=== PATIENT | male | born 1945 | race Caucasian/White ===

== ENCOUNTER 2023-02-23 11:23 | Inpatient (IN) | payer MEDICARE ==
[2023-02-23] MEDS ORDERED: ACETAMINOPHEN TAB 500 MG TAB PO STA (12:11)
--- NOTE | 2023-02-23 12:15 | ED ---
General Adult HPI - General Chief complaint: Altered Mental Status Stated complaint: AMS Time Seen by Provider: 02/23/23 11:57 Source: patient, EMS, RN notes reviewed Mode of arrival: EMS Limitations: altered mental status - History of Present Illness Initial comments: Patient is a pleasant 77-year-old male presenting to the emergency department with concerns for change in mental status. Patient was found on the ground this morning prior to arrival. Patient is altered. Patient reportedly last known well as last night. Patient is a very poor historian and offers very little history. Majority of history by EMS. - Related Data Allergies Allergy/AdvReac Type Severity Reaction Status Date / Time No Known Allergies Allergy Verified 02/23/23 12:32 Review of Systems ROS Statement: Those systems with pertinent positive or pertinent negative responses have been documented in the HPI. ROS Other: All systems not noted in ROS Statement are negative. Limitations: ROS unobtainable due to patients medical condition Constitutional: Reports: as per HPI Neurological: Reports: confusion Past Medical History Past Medical History: No Reported History Additional Past Medical History / Comment(s): Per EMS- patient has no significant medical history and does not take any medications. Past Surgical History: No Surgical Hx Reported General Exam Limitations: altered mental status General appearance: alert, in no apparent distress Head exam: Present: atraumatic Eye exam: Present: normal appearance, PERRL, EOMI ENT exam: Present: mucous membranes dry Neck exam: Present: normal inspection. Absent: tenderness, meningismus Respiratory exam: Present: normal lung sounds bilaterally Cardiovascular Exam: Present: regular rate, normal rhythm GI/Abdominal exam: Present: soft. Absent: tenderness Extremities exam: Present: normal inspection Neurological exam: Present: alert, CN II-XII intact, other (Exam limited by patient noncompliance. No focal deficits.). Absent: motor sensory deficit Expanded Neurological exam: Present: protecting the airway Patient oriented to: Present: person. Absent: place, time Cranial nerves: EOM's Intact: Normal Eye Response: (4) open spontaneously Motor Response: (5) localizes to pain Verbal Response: (4) confused conversation Psychiatric exam: Present: flat affect Skin exam: Present: normal color Course Vital Signs 02/23/23 02/23/23 02/23/23 11:27 11:57 13:20 Temperature 98.4 F 100.9 F H 103.2 F H Pulse Rate 93 88 Respiratory 18 Rate Blood Pressure 143/87 O2 Sat by Pulse 97 94 L Oximetry 02/23/23 02/23/23 02/23/23 14:00 15:00 15:05 Temperature 101.3 F H 98.9 F 100.6 F H Pulse Rate 96 87 Respiratory 18 20 Rate Blood Pressure 107/54 126/71 O2 Sat by Pulse 95 96 Oximetry - Reevaluation(s) Reevaluation #1: 02/23/23 15:07 Age and weight adjusted ideal body weight of 191 pounds, 87 kg for fluid bolus 2610 mL EKG Findings - EKG Results: EKG: interpreted by ERMD, sinus rhythm, normal axis, normal QRS, normal ST/T Procedures - Sepsis Sepsis Focused Exam #1 Time Sepsis Criteria Met: 15:00 Sepsis Focused Exam Date: 02/23/23 Sepsis Focused Exam Time: 15:12 Sepsis Focused Exam Complete: Yes Vital Signs & RN Notes Reviewed: Yes Capillary Refill: < 2 Seconds: Fingers, Toes Peripheral Pulses: Normal: Radial (R), Radial (L) Skin Color: Normal for Patient Respiratory Exam: normal lung sounds Cardiovascular Exam: regular rate, normal rhythm Medical Decision Making - Medical Decision Making Was pt. sent in by a medical professional or institution (, PA, ETHYLBENZENE CONVERTER OPERATOR, urgent care, hospital, or fpc...) When possible be specific @ -[No] Did you speak to anyone other than the patient for history (EMS, parent, family, police, friend...)? What history was obtained from this source @ -Family is present and helps provide history later including patient was well yesterday and no history of similar problems. Including patient significant improvement will symptoms since arrival Did you review nursing and triage notes (agree or disagree)? Why? @ -[I reviewed and agree with nursing and triage notes] Were old charts reviewed (outside hosp., previous admission, EMS record, old EKG, old radiological studies, urgent care reports/EKG's, fpc records)? Report findings @ -[No old charts were reviewed] Differential Diagnosis (chest pain, altered mental status, abdominal pain women, abdominal pain men, vaginal bleeding, weakness, fever, dyspnea, syncope, headache, dizziness, GI bleed, back pain, seizure, CVA, palpatations, mental health, musculoskeletal)? @ -Differential Altered Mental Status: Hypoglycemia, DKA, hypercapnia, ETOH, overdose, CO poisoning, trauma, myxedema coma, HTN encephalopathy, infection, encephalitis, psychosis, intercranial hemorrhage, hepatic encephalopathy, meningitis, CVA, this is not meant to be an all-inclusive list EKG interpreted by me (3pts min.). @ -[As above] X-rays interpreted by me (1pt min.). @ -Chest x-ray shows questionable right hilar infiltrate CT interpreted by me (1pt min.). @ -[None done] U/S interpreted by me (1pt. min.). @ -[None done] What testing was considered but not performed or refused? (CT, X-rays, U/S, labs)? Why? @ -[None] What meds were considered but not given or refused? Why? @ -[None] Did you discuss the management of the patient with other professionals (professionals i.e. , PA, ETHYLBENZENE CONVERTER OPERATOR, lab, RT, psych nurse, mental health social worker, brick catcher, teacher, youth officer, case manager specialist)? Give summary @ -Case was discussed with Dr. Holman, who will admit his patient Was smoking cessation discussed for >3mins.? @ -[No] Was critical care preformed (if so, how long)? @ -32 minutes. Were there social determinants of health that impacted care today? How? (Homelessness, low income, unemployed, alcoholism, drug addiction, transportation, low edu. Level, literacy, decrease access to med. care, [facility], rehab)? @ -[No] Was there de-escalation of care discussed even if they declined (Discuss DNR or withdrawal of care, Hospice)? DNR status @ -[No] What co-morbidities impacted this encounter? (DM, HTN, Smoking, COPD, CAD, Cancer, CVA, ARF, Chemo, Hep., AIDS, mental health diagnosis, sleep apnea, morbid obesity)? @ -[None] Was patient admitted / discharged? Hospital course, mention meds given and route, prescriptions, significant lab abnormalities, going to OR and other pertinent info. @ -Patient reevaluated and significantly improved. Patient is alert and oriented 3. Still no meningismus. Source of infection is possible pneumonia. Diagnosis of sepsis at 1500 hrs. Blood culture and lactic acid and IV antibiotics have all been ordered. Admission orders written. Undiagnosed new problem with uncertain prognosis? @ -[No] Drug Therapy requiring intensive monitoring for toxicity (Heparin, Nitro, Insulin, Cardizem)? @ -[No] Were any procedures done? @ -See above Diagnosis/symptom? @ -Pneumonia, septic shock Acute, or Chronic, or Acute on Chronic? @ -Acute, acute Uncomplicated (without systemic symptoms) or Complicated (systemic symptoms)? @ -[default] Side effects of treatment? @ -[No] Exacerbation, Progression, or Severe Exacerbation? @ -[No] Poses a threat to life or bodily function? How? (Chest pain, [place], CA, pneumonia, PE, COPD, DKA, ARF, appy, cholecystitis, CVA, Diverticulitis, Homicidal, Suicidal, threat to staff... and all critical care pts) @ -Patient meets septic shock criteria which does pose a threat to bodily function and life - Lab Data Result diagrams: 02/23/23 12:30 02/23/23 12:30 Lab Results 02/23/23 02/23/23 02/23/23 Range/Units 12:25 12:30 12:30 WBC 13.4 H (3.8-10.6) k/uL RBC 4.87 (4.30-5.90) m/uL Hgb 15.9 (13.0-17.5) gm/dL Hct 45.7 (39.0-53.0) % MCV 93.9 (80.0-100.0) fL MCH 32.8 (25.0-35.0) pg MCHC 34.9 (31.0-37.0) g/dL RDW 12.2 (11.5-15.5) % Plt Count 139 L (150-450) k/uL MPV 9.4 Neutrophils % 79 % Lymphocytes % 10 % Monocytes % 7 % Eosinophils % 0 % Basophils % 0 % Neutrophils # 10.5 H (1.3-7.7) k/uL Lymphocytes # 1.3 (1.0-4.8) k/uL Monocytes # 1.0 (0-1.0) k/uL Eosinophils # 0.0 (0-0.7) k/uL Basophils # 0.1 (0-0.2) k/uL PT 11.8 (9.0-12.0) sec INR 1.1 (<1.2) APTT 23.8 (22.0-30.0) sec Sodium (137-145) mmol/L Potassium (3.5-5.1) mmol/L Chloride (98-107) mmol/L Carbon Dioxide (22-30) mmol/L Anion Gap mmol/L BUN (9-20) mg/dL Creatinine (0.66-1.25) mg/dL Est GFR (CKD-EPI)AfAm (>60 ml/min/1.73 sqM) Est GFR (CKD-EPI)NonAf (>60 ml/min/1.73 sqM) Glucose (74-99) mg/dL POC Glucose (mg/dL) 121 H (70-110) mg/dL POC Glu [place] ID Vivi Chavez Lactic Ac Sepsis Rflx Plasma Lactic Acid Ehsan (0.7-2.0) mmol/L Calcium (8.4-10.2) mg/dL Total Bilirubin (0.2-1.3) mg/dL AST (17-59) U/L ALT (4-49) U/L Alkaline Phosphatase (38-126) U/L Creatine Kinase (55-170) U/L Troponin I (0.000-0.034) ng/mL Total Protein (6.3-8.2) g/dL Albumin (3.5-5.0) g/dL Urine Color Urine Appearance (Clear) Urine pH (5.0-8.0) Ur Specific [place] (1.001-1.035) Urine Protein (Negative) Urine Glucose (UA) (Negative) Urine Ketones (Negative) Urine Blood (Negative) Urine Nitrite (Negative) Urine Bilirubin (Negative) Urine Urobilinogen (<2.0) mg/dL Ur Leukocyte Esterase (Negative) Urine RBC (0-5) /hpf Urine WBC (0-5) /hpf Urine Mucus (None) /hpf Influenza Type A (PCR) (Not Detectd) Influenza Type B (PCR) (Not Detectd) RSV (PCR) (Not Detectd) SARS-CoV-2 (PCR) (Not Detectd) 02/23/23 02/23/23 02/23/23 Range/Units 12:30 12:30 12:30 WBC (3.8-10.6) k/uL RBC (4.30-5.90) m/uL Hgb (13.0-17.5) gm/dL Hct (39.0-53.0) % MCV (80.0-100.0) fL MCH (25.0-35.0) pg MCHC (31.0-37.0) g/dL RDW (11.5-15.5) % Plt Count (150-450) k/uL MPV Neutrophils % % Lymphocytes % % Monocytes % % Eosinophils % % Basophils % % Neutrophils # (1.3-7.7) k/uL Lymphocytes # (1.0-4.8) k/uL Monocytes # (0-1.0) k/uL Eosinophils # (0-0.7) k/uL Basophils # (0-0.2) k/uL PT (9.0-12.0) sec INR (<1.2) APTT (22.0-30.0) sec Sodium 138 (137-145) mmol/L Potassium 4.8 (3.5-5.1) mmol/L Chloride 105 (98-107) mmol/L Carbon Dioxide 22 (22-30) mmol/L Anion Gap 11 mmol/L BUN 29 H (9-20) mg/dL Creatinine 1.17 (0.66-1.25) mg/dL Est GFR (CKD-EPI)AfAm 68 (>60 ml/min/1.73 sqM) Est GFR (CKD-EPI)NonAf 59 (>60 ml/min/1.73 sqM) Glucose 118 H (74-99) mg/dL POC Glucose (mg/dL) (70-110) mg/dL POC Glu [place] ID Lactic Ac Sepsis Rflx Plasma Lactic Acid Ehsan 4.0 H* (0.7-2.0) mmol/L Calcium 8.8 (8.4-10.2) mg/dL Total Bilirubin 1.7 H (0.2-1.3) mg/dL AST 61 H (17-59) U/L ALT 38 (4-49) U/L Alkaline Phosphatase 59 (38-126) U/L Creatine Kinase 1588 H* (55-170) U/L Troponin I 0.068 H* (0.000-0.034) ng/mL Total Protein 7.6 (6.3-8.2) g/dL Albumin 4.4 (3.5-5.0) g/dL Urine Color Urine Appearance (Clear) Urine pH (5.0-8.0) Ur Specific [place] (1.001-1.035) Urine Protein (Negative) Urine Glucose (UA) (Negative) Urine Ketones (Negative) Urine Blood (Negative) Urine Nitrite (Negative) Urine Bilirubin (Negative) Urine Urobilinogen (<2.0) mg/dL Ur Leukocyte Esterase (Negative) Urine RBC (0-5) /hpf Urine WBC (0-5) /hpf Urine Mucus (None) /hpf Influenza Type A (PCR) (Not Detectd) Influenza Type B (PCR) (Not Detectd) RSV (PCR) (Not Detectd) SARS-CoV-2 (PCR) (Not Detectd) 02/23/23 02/23/23 02/23/23 Range/Units 12:30 12:35 13:11 WBC (3.8-10.6) k/uL RBC (4.30-5.90) m/uL Hgb (13.0-17.5) gm/dL Hct (39.0-53.0) % MCV (80.0-100.0) fL MCH (25.0-35.0) pg MCHC (31.0-37.0) g/dL RDW (11.5-15.5) % Plt Count (150-450) k/uL MPV Neutrophils % % Lymphocytes % % Monocytes % % Eosinophils % % Basophils % % Neutrophils # (1.3-7.7) k/uL Lymphocytes # (1.0-4.8) k/uL Monocytes # (0-1.0) k/uL Eosinophils # (0-0.7) k/uL Basophils # (0-0.2) k/uL PT (9.0-12.0) sec INR (<1.2) APTT (22.0-30.0) sec Sodium (137-145) mmol/L Potassium (3.5-5.1) mmol/L Chloride (98-107) mmol/L Carbon Dioxide (22-30) mmol/L Anion Gap mmol/L BUN (9-20) mg/dL Creatinine (0.66-1.25) mg/dL Est GFR (CKD-EPI)AfAm (>60 ml/min/1.73 sqM) Est GFR (CKD-EPI)NonAf (>60 ml/min/1.73 sqM) Glucose (74-99) mg/dL POC Glucose (mg/dL) (70-110) mg/dL POC Glu [place] ID Lactic Ac Sepsis Rflx Y Plasma Lactic Acid Ehsan (0.7-2.0) mmol/L Calcium (8.4-10.2) mg/dL Total Bilirubin (0.2-1.3) mg/dL AST (17-59) U/L ALT (4-49) U/L Alkaline Phosphatase (38-126) U/L Creatine Kinase (55-170) U/L Troponin I (0.000-0.034) ng/mL Total Protein (6.3-8.2) g/dL Albumin (3.5-5.0) g/dL Urine Color Yellow Urine Appearance Clear (Clear) Urine pH 5.5 (5.0-8.0) Ur Specific [place] 1.027 (1.001-1.035) Urine Protein 1+ H (Negative) Urine Glucose (UA) Negative (Negative) Urine Ketones 1+ H (Negative) Urine Blood Large H (Negative) Urine Nitrite Negative (Negative) Urine Bilirubin Negative (Negative) Urine Urobilinogen <2.0 (<2.0) mg/dL Ur Leukocyte Esterase Negative (Negative) Urine RBC 14 H (0-5) /hpf Urine WBC 1 (0-5) /hpf Urine Mucus Few H (None) /hpf Influenza Type A (PCR) Not Detected (Not Detectd) Influenza Type B (PCR) Not Detected (Not Detectd) RSV (PCR) Not Detected (Not Detectd) SARS-CoV-2 (PCR) Not Detected (Not Detectd) Critical Care Time Critical Care Time: Yes Total Critical Care Time: 32 Disposition Clinical Impression: Pneumonia, Septic shock Disposition: ADMITTED IP TO THIS HOSP Condition: Serious Is patient prescribed a controlled substance at d/c from ED?: No Referrals: None,Stated [REFERRING] - 1-2 days Time of Disposition: 15:07
[2023-02-23 12:32] LABS: Glucose,Whole Blood 121 mg/dL (70-110)
[2023-02-23 12:44] LABS: Basophils # (A) 0.1 k/uL (0-0.2); Basophils % (A) 0 %; Eosinophils % (A) 0 %; HCT 45.7 % (39.0-53.0); HGB 15.9 gm/dL (13.0-17.5); Lymphocytes # (A) 1.3 k/uL (1.0-4.8); Lymphocytes % (A) 10 %; MCH 32.8 pg (25.0-35.0); MCHC 34.9 g/dL (31.0-37.0); MCV 93.9 fL (80.0-100.0); Mean Platelet Volume 9.4; Monocytes % (A) 7 %; Neutrophils # (A) 10.5 k/uL (1.3-7.7); Neutrophils % (A) 79 %; Platelet Count 139 k/uL (150-450); RBC 4.87 m/uL (4.30-5.90); RDW 12.2 % (11.5-15.5); WBC 13.4 k/uL (3.8-10.6)
[2023-02-23 12:52] LABS: INR 1.1 (<1.2); Partial Thromboplastin Time 23.8 sec (22.0-30.0); Prothrombin Time 11.8 sec (9.0-12.0)
[2023-02-23] MEDS ORDERED: ACETAMINOPHEN IV (For NPO) 1,000 MG in EMPTY BAG 1 BAG IVPB STA (12:59)
--- NOTE | 2023-02-23 13:02 | CT ---
EXAMINATION TYPE: CT brain wo con DATE OF EXAM: 02/23/2023 COMPARISON: none HISTORY: AMS CT DLP: 2159.[address] of the brain was performed. The ventricles, basal cisterns and sulci overlying the cerebral convexities demonstrate mild to moder ate enlargement. There is no evidence for intracranial hemorrhage or sulcal effacement. There is decreased attenuation about the periventricular white matter and deep white matter of both c erebral hemispheres, compatible with chronic small vessel ischemia. Differential diagnosis does inclu de demyelination. No mass effects are seen.No midline shift. Osseous calvarium is intact. If symptoms persist consider MRI. IMPRESSION: 1. Age related atrophic and chronic small vessel ischemic change without acute intracranial process s een at this time.
[2023-02-23 13:03] LABS: AST 61 U/L (17-59); African American GFR (CKD) 68 (>60 ml/min/1.73 sqM); Albumin 4.4 g/dL (3.5-5.0); Alkaline Phosphatase 59 U/L (38-126); Anion Gap 11 mmol/L; Blood Urea Nitrogen 29 mg/dL (9-20); Calcium 8.8 mg/dL (8.4-10.2); Carbon Dioxide 22 mmol/L (22-30); Chloride 105 mmol/L (98-107); Glucose 118 mg/dL (74-99); Non-African American GFR(CKD) 59 (>60 ml/min/1.73 sqM); Potassium 4.8 mmol/L (3.5-5.1); Sodium 138 mmol/L (137-145); Total Bilirubin 1.7 mg/dL (0.2-1.3); Total Protein 7.6 g/dL (6.3-8.2)
--- NOTE | 2023-02-23 13:03 | XR ---
EXAMINATION TYPE: XR chest 1V portable DATE OF EXAM: 02/23/2023 HISTORY: Shortness of breath. COMPARISON: None. TECHNIQUE: Single view of the chest is submitted. FINDINGS: Demonstrated are scattered senescent parenchymal change. The heart is stable. There is fullness about the right hilum which is likely related to patient rotation. Underlying infil trate or mass is not excluded however. Degenerative changes are seen of the dorsal spine. IMPRESSION: 1. There is fullness about the right hilum which is likely related to patient rotation. Underlying i nfiltrate or mass is not excluded however.
[2023-02-23 13:11] LABS: ALT 38 U/L (4-49); Creatine Kinase 1588 U/L (55-170)
[2023-02-23] MEDS: SODIUM CHLORIDE 0.9% 1,000 ML IV SCH ×2 (13:20→23:00)
[2023-02-23 14:06] LABS: Appearance,Urine Clear (Clear); Bilirubin,Urine Negative (Negative); Blood,Urine Large (Negative); Color,Urine Yellow; Glucose,Urine (UA) Negative (Negative); Ketones,Urine 1+ (Negative); Leukocyte Esterase,Urine Negative (Negative); Mucus,Urine Few /hpf; Nitrite,Urine Negative (Negative); PH, Urine 5.5 (5.0-8.0); Protein,Urine 1+ (Negative); RBC,Urine 14 /hpf (0-5); Specific Gravity,Urine 1.027 (1.001-1.035); Urobilinogen,Urine <2.0 mg/dL (<2.0); WBC,Urine 1 /hpf (0-5)
[2023-02-23] MEDS ORDERED: SODIUM CHLORIDE 0.9% IV STA (15:01)
[2023-02-23] MEDS ORDERED: SODIUM CHLORIDE 0.9% 1,000 ML IV STA ×2 (15:01)
[2023-02-23] MEDS ORDERED: PNEUMONIA PROTOCOL UTILIZED 1 EACH MISC PO PRN (15:19)
[2023-02-23] MEDS ORDERED: SODIUM CHLORIDE 0.9% 500 ML 500 ML IV ONE (18:40)
[2023-02-23] MEDS ORDERED: LORazepam 2 MG/ML INJ IV PRN (18:40)
[2023-02-23] MEDS ORDERED: IBUPROFEN 200 MG TAB PO PRN (18:42)
[2023-02-23] MEDS: ACETAMINOPHEN IV (For NPO) 1,000 MG in EMPTY BAG 1 BAG IVPB PRN (19:00)
--- NOTE | 2023-02-23 19:57 | P.HPIM ---
History of Present Illness H&P Date: 02/23/23 Chief Complaint: Significant fever. This history of physical 77-year-old white male with no significant past medical history who was found on the floor this morning. Usually sleeps in a separate room from his and the found him this morning. She could not necessar becka describe what she found that he was not described as having any type of seizure disorder. Evaluation in emergency room did show significant fever with questionable pneumonia. The patient is admitted for sepsis and septic shock. After evaluating the patient initially in the room he became sensitive and tachycardic. He has been bolused at this point and cultures are pending. Initial urinalysis does not show significant sinus infection. Blood cultures are also pending but white count is slightly elevated. The patient due to his initial decompensation we transferred to ICU for appropriate evaluation. Cardiology, intensive care and infectious diseases consulted. Due to his new onset mental status changes we will ask neurology to also do an evaluation although despite this is related to the sepsis. Review of Systems Constitutional: Reports as per HPI, Reports chills, Reports fever Eyes: denies blurred vision, denies pain Ears, nose, mouth and throat: Reports headache, Denies sore throat Cardiovascular: Reports chest pain, Denies shortness of breath Respiratory: Reports cough Gastrointestinal: Denies abdominal pain, Denies diarrhea, Denies nausea, Denies vomiting Musculoskeletal: Denies myalgias Integumentary: Denies pruritus, Denies rash Past Medical History Past Medical History: No Reported History Additional Past Medical History / Comment(s): Per EMS- patient has no significant medical history and does not take any medications. Past Surgical History: No Surgical Hx Reported Medications and Allergies Home Medications Medication Instructions Recorded Confirmed Type No Known Home Medications 02/23/23 02/23/23 History Allergies Allergy/AdvReac Type Severity Reaction Status Date / Time No Known Allergies Allergy Verified 02/23/23 12:32 Physical Exam Vitals: Vital Signs Temp Pulse Pulse Resp BP BP Pulse Ox 02/23/23 19:50 102.8 F H 162 H 22 94/56 02/23/23 19:38 102.8 F H 88 20 114/58 98 02/23/23 18:15 103.1 F H 99 22 179/81 96 02/23/23 16:44 99.7 F H 02/23/23 16:40 100.1 F H 87 20 139/71 97 02/23/23 15:05 100.6 F H 87 20 126/71 96 02/23/23 15:00 98.9 F 02/23/23 14:00 101.3 F H 96 18 107/54 95 02/23/23 13:20 103.2 F H 88 94 L 02/23/23 11:57 100.9 F H 02/23/23 11:27 98.4 F 93 18 143/87 97 Intake and Output 02/23/23 02/23/23 02/23/23 06:59 14:59 22:59 Output Total 475 Balance -475 Output: Urine 475 Uretheral (Mitchell) 475 Other: Weight 113.398 kg - Constitutional General appearance: no acute distress - EENT Eyes: EOMI - Respiratory Respiratory: bilateral: CTA - Cardiovascular Rhythm: regular Heart sounds: normal: S1, S2 Abnormal Heart Sounds: no S3 Gallop - Gastrointestinal General gastrointestinal: soft, no tenderness, no umbilical hernia - Integumentary Integumentary: cellulitis - Psychiatric Psychiatric: no A&O x's 3 Results CBC & Chem 7: 02/23/23 12:30 02/23/23 12:30 Labs: Abnormal Lab Results - Last 24 Hours (Table) 02/23/23 02/23/23 02/23/23 Range/Units 12:25 12:30 12:30 WBC 13.4 H (3.8-10.6) k/uL Plt Count 139 L (150-450) k/uL Neutrophils # 10.5 H (1.3-7.7) k/uL BUN 29 H (9-20) mg/dL Glucose 118 H (74-99) mg/dL POC Glucose (mg/dL) 121 H (70-110) mg/dL Plasma Lactic Acid Ehsan (0.7-2.0) mmol/L Total Bilirubin 1.7 H (0.2-1.3) mg/dL AST 61 H (17-59) U/L Creatine Kinase 1588 H* (55-170) U/L Troponin I (0.000-0.034) ng/mL Urine Protein (Negative) Urine Ketones (Negative) Urine Blood (Negative) Urine RBC (0-5) /hpf Urine Mucus (None) /hpf 02/23/23 02/23/23 02/23/23 Range/Units 12:30 12:30 12:30 WBC (3.8-10.6) k/uL Plt Count (150-450) k/uL Neutrophils # (1.3-7.7) k/uL BUN (9-20) mg/dL Glucose (74-99) mg/dL POC Glucose (mg/dL) (70-110) mg/dL Plasma Lactic Acid Ehsan 4.0 H* (0.7-2.0) mmol/L Total Bilirubin (0.2-1.3) mg/dL AST (17-59) U/L Creatine Kinase (55-170) U/L Troponin I 0.068 H* (0.000-0.034) ng/mL Urine Protein 1+ H (Negative) Urine Ketones 1+ H (Negative) Urine Blood Large H (Negative) Urine RBC 14 H (0-5) /hpf Urine Mucus Few H (None) /hpf Assessment and Plan (1) Altered mental status Current Visit: Yes Status: Acute Code(s): R41.82 - ALTERED MENTAL STATUS, UNSPECIFIED SNOMED Code(s): 393300859 (2) Pneumonia Current Visit: Yes Status: Acute Code(s): J18.9 - PNEUMONIA, UNSPECIFIED ORGANISM SNOMED Code(s): 229236400 (3) Septic shock Current Visit: Yes Status: Acute Code(s): A41.9 - SEPSIS, UNSPECIFIED ORGANISM; R65.21 - SEVERE SEPSIS WITH SEPTIC SHOCK SNOMED Code(s): 75204105 Plan: Due to sun decompensation, I will transfer to the ICU for appropriate treatment. Bolus fluid. Check CBC and CMP in a.m. I do suspect these cardiac and mental status changes are related to sepsis. Prognosis is guarded. See orders otherwise.
--- NOTE | 2023-02-23 20:47 | XR ---
EXAMINATION TYPE: XR chest 1V portable DATE OF EXAM: 02/23/2023 7:58 PM CLINICAL INDICATION:Male, 77 years old with history of shortness of breath; COMPARISON: Chest radiographs from 02/13/2023 TECHNIQUE: XR chest 1V portable Frontal view of the chest. FINDINGS: Lungs/Pleura: There is no evidence of pleural effusion, focal consolidation, or pneumothorax. Pulmonary vascularity: Unremarkable. Heart/mediastinum: Cardiomediastinal silhouette is unremarkable. Musculoskeletal: No acute osseous pathology. IMPRESSION: Low lung volumes with a generalized hazy appearance which could represent atelectasis versus pulmonar y edema correlate with serum BNP.
[2023-02-24] MEDS: ACETAMINOPHEN IV (For NPO) 1,000 MG in EMPTY BAG 1 BAG IVPB PRN ×4 (03:29→19:52)
[2023-02-24] MEDS: SODIUM CHLORIDE 0.9% 1,000 ML IV SCH ×3 (05:14→23:27)
[2023-02-24 06:02] LABS: HCT 39.1 % (39.0-53.0); HGB 13.5 gm/dL (13.0-17.5); MCH 33.6 pg (25.0-35.0); MCHC 34.6 g/dL (31.0-37.0); MCV 96.9 fL (80.0-100.0); Mean Platelet Volume 9.2; Platelet Count 109 k/uL (150-450); RBC 4.04 m/uL (4.30-5.90); RDW 11.9 % (11.5-15.5)
[2023-02-24 06:15] LABS: ALT 50 U/L (4-49); AST 245 U/L (17-59); African American GFR (CKD) 65 (>60 ml/min/1.73 sqM); Albumin 3.1 g/dL (3.5-5.0); Alkaline Phosphatase 43 U/L (38-126); Anion Gap 9 mmol/L; Blood Urea Nitrogen 36 mg/dL (9-20); Calcium 7.5 mg/dL (8.4-10.2); Carbon Dioxide 17 mmol/L (22-30); Chloride 110 mmol/L (98-107); Glucose 102 mg/dL (74-99); Non-African American GFR(CKD) 56 (>60 ml/min/1.73 sqM); Potassium 3.7 mmol/L (3.5-5.1); Sodium 136 mmol/L (137-145); Total Bilirubin 1.8 mg/dL (0.2-1.3); Total Protein 5.9 g/dL (6.3-8.2)
[2023-02-24 06:46] LABS: Glucose,Whole Blood 102 mg/dL (70-110)
[2023-02-24] MEDS ORDERED: VANCOMYCIN IV PER PHARMACY 1 EACH MISC MISCELLANE PRN (07:33)
[2023-02-24] MEDS ORDERED: VANCOMYCIN 1,750 MG in SODIUM CHLORIDE 0.9% 500 ML 500 ML IVPB ONE (08:00)
--- NOTE | 2023-02-24 08:06 | P.PN ---
Subjective Principal diagnosis: Altered mental status This is 77-year-old white male with no significant past medical history came in and septic shock and questionable pneumonia. He was significant tachycardia with hypotension and was placed in ICU for observation. He continues to have significant mental status changes. Question febrile seizure element. Temperature is 102.8. IV Tylenol has been administered. Appreciate multiple consultants input. Objective - Vital Signs Vital signs: Vital Signs Temp 98.1 F 02/24/23 05:00 Pulse 51 L 02/24/23 07:00 Resp 14 02/24/23 07:00 BP 142/72 02/24/23 07:00 Pulse Ox 94 L 02/24/23 07:00 FiO2 Intake & Output 02/23/23 02/24/23 02/24/23 18:59 06:59 18:59 Intake Total 1270 130 Output Total 475 370 25 Balance -475 900 105 Weight 113.398 kg 101 kg Intake: IV 1170 130 Sodium Chloride 0.9% 1, 1170 130 000 ml @ 130 mls/hr IV . Q7H42M [facility] Rx#:[id number] Intake, IV Titration 100 Amount ACETAMINOPHEN IV (For NPO 100 ) 1,000 mg In Empty Bag 1 bag @ 400 mls/hr IVPB Q6HR PRN Rx#:[id number] Output: Urine 475 370 25 Uretheral (Mitchell) 475 Other: Voiding Method Indwelling Catheter Indwelling Catheter - Constitutional General appearance: Present: mild distress. Absent: cooperative - EENT Eyes: Absent: abnormal pupil - Neck Neck: Absent: lymphadenopathy - Respiratory Respiratory: bilateral: diminished - Cardiovascular Rhythm: regular Heart sounds: normal: S1, S2 Abnormal Heart Sounds: Absent: S3 Gallop - Gastrointestinal General gastrointestinal: Present: soft. Absent: tenderness - Neurologic Neurologic Comment(s): Posturing noted - Labs CBC & Chem 7: 02/24/23 05:47 02/24/23 05:47 Labs: Abnormal Lab Results - Last 24 Hours (Table) 02/23/23 02/23/23 02/23/23 Range/Units 12:25 12:30 12:30 WBC 13.4 H (3.8-10.6) k/uL RBC (4.30-5.90) m/uL Plt Count 139 L (150-450) k/uL Neutrophils # 10.5 H (1.3-7.7) k/uL Sodium (137-145) mmol/L Chloride (98-107) mmol/L Carbon Dioxide (22-30) mmol/L BUN 29 H (9-20) mg/dL Glucose 118 H (74-99) mg/dL POC Glucose (mg/dL) 121 H (70-110) mg/dL Plasma Lactic Acid Ehsan (0.7-2.0) mmol/L Calcium (8.4-10.2) mg/dL Total Bilirubin 1.7 H (0.2-1.3) mg/dL AST 61 H (17-59) U/L ALT (4-49) U/L Creatine Kinase 1588 H* (55-170) U/L Troponin I (0.000-0.034) ng/mL Total Protein (6.3-8.2) g/dL Albumin (3.5-5.0) g/dL Urine Protein (Negative) Urine Ketones (Negative) Urine Blood (Negative) Urine RBC (0-5) /hpf Urine Mucus (None) /hpf 02/23/23 02/23/23 02/23/23 Range/Units 12:30 12:30 12:30 WBC (3.8-10.6) k/uL RBC (4.30-5.90) m/uL Plt Count (150-450) k/uL Neutrophils # (1.3-7.7) k/uL Sodium (137-145) mmol/L Chloride (98-107) mmol/L Carbon Dioxide (22-30) mmol/L BUN (9-20) mg/dL Glucose (74-99) mg/dL POC Glucose (mg/dL) (70-110) mg/dL Plasma Lactic Acid Ehsan 4.0 H* (0.7-2.0) mmol/L Calcium (8.4-10.2) mg/dL Total Bilirubin (0.2-1.3) mg/dL AST (17-59) U/L ALT (4-49) U/L Creatine Kinase (55-170) U/L Troponin I 0.068 H* (0.000-0.034) ng/mL Total Protein (6.3-8.2) g/dL Albumin (3.5-5.0) g/dL Urine Protein 1+ H (Negative) Urine Ketones 1+ H (Negative) Urine Blood Large H (Negative) Urine RBC 14 H (0-5) /hpf Urine Mucus Few H (None) /hpf 02/23/23 02/24/23 02/24/23 Range/Units 19:55 02:04 05:47 WBC 16.0 H (3.8-10.6) k/uL RBC 4.04 L (4.30-5.90) m/uL Plt Count 109 L (150-450) k/uL Neutrophils # (1.3-7.7) k/uL Sodium (137-145) mmol/L Chloride (98-107) mmol/L Carbon Dioxide (22-30) mmol/L BUN (9-20) mg/dL Glucose (74-99) mg/dL POC Glucose (mg/dL) (70-110) mg/dL Plasma Lactic Acid Ehsan (0.7-2.0) mmol/L Calcium (8.4-10.2) mg/dL Total Bilirubin (0.2-1.3) mg/dL AST (17-59) U/L ALT (4-49) U/L Creatine Kinase (55-170) U/L Troponin I 0.166 H* 0.193 H* (0.000-0.034) ng/mL Total Protein (6.3-8.2) g/dL Albumin (3.5-5.0) g/dL Urine Protein (Negative) Urine Ketones (Negative) Urine Blood (Negative) Urine RBC (0-5) /hpf Urine Mucus (None) /hpf 02/24/23 Range/Units 05:47 WBC (3.8-10.6) k/uL RBC (4.30-5.90) m/uL Plt Count (150-450) k/uL Neutrophils # (1.3-7.7) k/uL Sodium 136 L (137-145) mmol/L Chloride 110 H (98-107) mmol/L Carbon Dioxide 17 L (22-30) mmol/L BUN 36 H (9-20) mg/dL Glucose 102 H (74-99) mg/dL POC Glucose (mg/dL) (70-110) mg/dL Plasma Lactic Acid Ehsan (0.7-2.0) mmol/L Calcium 7.5 L (8.4-10.2) mg/dL Total Bilirubin 1.8 H (0.2-1.3) mg/dL AST 245 H (17-59) U/L ALT 50 H (4-49) U/L Creatine Kinase (55-170) U/L Troponin I (0.000-0.034) ng/mL Total Protein 5.9 L (6.3-8.2) g/dL Albumin 3.1 L (3.5-5.0) g/dL Urine Protein (Negative) Urine Ketones (Negative) Urine Blood (Negative) Urine RBC (0-5) /hpf Urine Mucus (None) /hpf Assessment and Plan (1) Altered mental status Current Visit: Yes Status: Acute Code(s): R41.82 - ALTERED MENTAL STATUS, UNSPECIFIED SNOMED Code(s): 332440448 (2) Pneumonia Current Visit: Yes Status: Acute Code(s): J18.9 - PNEUMONIA, UNSPECIFIED ORGANISM SNOMED Code(s): 971175656 (3) Septic shock Current Visit: Yes Status: Acute Code(s): A41.9 - SEPSIS, UNSPECIFIED ORGANISM; R65.21 - SEVERE SEPSIS WITH SEPTIC SHOCK SNOMED Code(s): 98078689 Plan: Fever control. Ativan to be given. IV Tylenol. Check CBC and CMP in a.m. Neurology, pulmonology and cardiology have been consulted. Cultures are pending. Appreciate ID input as well. Continue IV antibiotics. Time with Patient: Greater than 30
--- NOTE | 2023-02-24 08:24 | P.CNPUL ---
History of Present Illness Consult date: 02/24/23 Requesting physician: Pranay Holman Reason for consult: pulmonary fibrosis (ICU management), other Chief complaint: Altered mental status History of present illness: I am seeing this patient in new consultation today 02/24/2023 after the patient presented to the ER yesterday evening with concerns of altered mental status. Patient is a 77-year-old white male with a limited past medical history. Apparently, the patient's found him down on the ground early yesterday morning confused. His last known well time was the night prior. Nonenhanced brain CT on arrival shows age-related atrophic and chronic small vessel ischemia without any obvious acute cranial process. Initial chest x-ray on arrival showed fullness around the right hilum likely related patient rotation. Underlying infiltrate or mass not excluded. CBC shows leukocytosis with a WBC count of 16, hemoglobin 13.5, hematocrit 39.1, platelets 109,000. BMP shows sodium 136, potassium 3.7, chloride 110, serum bicarb 17, BUN 36, creatinine 1.22, glucose 102. LFTs are mildly elevated. Troponins are 1.66 and 1.9. Urinalysis not particularly concerning for UTI. Negative for influenza, RSV, COVID-19. Patient was originally admitted to the floor, and was transferred to the ICU last night for tachycardia and hypotension. Yesterday, he was given a total of 2.5 L normal saline bolus. On my evaluation, the patient is lying in bed, extremities are rigid, he is febrile with a t-max of 103 F. He is on 2 L/m nasal cannula, oxygenating around 94%. He is disoriented and unable to provide any meaningful information. He mostly mumbles. I did speak to the patient's daughter, who denies any recent sinus, ear, or pulmonary infections. I am concerned for possible encephalitis or meningitis. I spoke with neurology last night, and updated them on the patient. There is an EEG pending for the morning. Patient is empirically covered with combination of ampicillin, vancomycin, and Rocephin. Infectious disease consult was also placed. Heart rhythm is currently normal sinus on bedside monitor. Blood pressure is normotensive. Normal saline is infusing at 130 ML's per hour. No need for vasopressors at this time. Patient will need a thorough neurological workup. He is being monitored in the intensive care unit in the meantime. Review of Systems ROS unobtainable: due to mental status Past Medical History Past Medical History: No Reported History Additional Past Medical History / Comment(s): Per EMS- patient has no significant medical history and does not take any medications. History of Any Multi-Drug Resistant Organisms: None Reported Past Surgical History: Joint Replacement Additional Past Surgical History / Comment(s): Knee replacement x 2 Past Anesthesia/Blood Transfusion Reactions: No Reported Reaction Past Psychological History: No Psychological Hx Reported Smoking Status: Former smoker Medications and Allergies Home Medications Medication Instructions Recorded Confirmed Type No Known Home Medications 02/23/23 02/23/23 History Allergies Allergy/AdvReac Type Severity Reaction Status Date / Time No Known Allergies Allergy Verified 02/23/23 12:32 Physical Exam Vitals: Vital Signs Temp Pulse Pulse Resp BP BP Pulse Ox 02/24/23 07:00 51 L 14 142/72 94 L 02/24/23 06:00 80 10 L 137/85 93 L 02/24/23 05:00 98.1 F 78 19 128/87 91 L 02/24/23 04:00 71 14 106/52 94 L 02/24/23 03:00 103 F H 84 15 118/93 91 L 02/24/23 02:00 73 15 128/95 94 L 02/24/23 01:00 77 19 128/81 93 L 02/24/23 00:00 103.5 F H 78 17 132/81 95 02/23/23 23:00 74 14 117/75 95 02/23/23 22:00 100.1 F H 77 93 L 02/23/23 21:00 150 H 101/71 95 02/23/23 20:34 101.6 F H 80 91 L 02/23/23 19:50 102.8 F H 162 H 22 94/56 02/23/23 19:38 102.8 F H 88 20 114/58 98 02/23/23 18:15 103.1 F H 99 22 179/81 96 02/23/23 18:05 96 20 02/23/23 16:44 99.7 F H 02/23/23 16:40 100.1 F H 87 20 139/71 97 02/23/23 15:05 100.6 F H 87 20 126/71 96 02/23/23 15:00 98.9 F 02/23/23 14:00 101.3 F H 96 18 107/54 95 02/23/23 13:20 103.2 F H 88 94 L 02/23/23 11:57 100.9 F H 02/23/23 11:27 98.4 F 93 18 143/87 97 Intake and Output 02/23/23 02/24/23 02/24/23 22:59 06:59 14:59 Intake Total 130 1140 130 Output Total 535 310 25 Balance -405 830 105 Intake: IV 130 1040 130 Sodium Chloride 0.9% 1, 130 1040 130 000 ml @ 130 mls/hr IV . Q7H42M [facility] Rx#:[id number] Intake, IV Titration 100 Amount ACETAMINOPHEN IV (For NPO 100 ) 1,000 mg In Empty Bag 1 bag @ 400 mls/hr IVPB Q6HR PRN Rx#:[id number] Output: Urine 535 310 25 Uretheral (Mitchell) 475 Other: Voiding Method Indwelling Catheter Indwelling Catheter Weight 113.398 kg 101 kg GENERAL EXAM: Drowsy, with minimal response to verbal stimulation, responds with incoherent mumbling. HEAD: Normocephalic and atraumatic EYES: Normal reaction of pupils, equal size. NOSE: Clear with pink turbinates. THROAT: No erythema or exudates. NECK: No masses, no JVD. CHEST: No chest wall deformity. LUNGS: Equal air entry with no crackles, wheeze, rhonchi or dullness. On 2 L/m nasal cannula. No conversational dyspnea or accessory muscle use.. CVS: S1 and S2 normal with no audible murmur, regular rhythm. No extra heart sounds ABDOMEN: No hepatosplenomegaly, active bowel sounds, no guarding or rigidity. SPINE: No scoliosis or deformity SKIN: No rashes CENTRAL NERVOUS SYSTEM: Extremities are stiff resistant to flexion, possible positive kernigs. There is neck stiffness. EXTREMITIES: There is no peripheral edema, clubbing, or cyanosis. Peripheral pulses are intact. Results - Laboratory Findings CBC and BMP: 02/24/23 05:47 02/24/23 05:47 PT/INR, D-dimer PT 11.8 sec (9.0-12.0) 02/23/23 12:30 INR 1.1 (<1.2) 02/23/23 12:30 Abnormal lab findings: Abnormal Labs 02/23/23 02/23/23 02/23/23 12:25 12:30 12:30 WBC 13.4 H RBC Plt Count 139 L Neutrophils # 10.5 H Sodium Chloride Carbon Dioxide BUN 29 H Glucose 118 H POC Glucose (mg/dL) 121 H Plasma Lactic Acid Ehsan Calcium Total Bilirubin 1.7 H AST 61 H ALT Creatine Kinase 1588 H* Troponin I Total Protein Albumin Urine Protein Urine Ketones Urine Blood Urine RBC Urine Mucus 02/23/23 02/23/23 02/23/23 12:30 12:30 12:30 WBC RBC Plt Count Neutrophils # Sodium Chloride Carbon Dioxide BUN Glucose POC Glucose (mg/dL) Plasma Lactic Acid Ehsan 4.0 H* Calcium Total Bilirubin AST ALT Creatine Kinase Troponin I 0.068 H* Total Protein Albumin Urine Protein 1+ H Urine Ketones 1+ H Urine Blood Large H Urine RBC 14 H Urine Mucus Few H 02/23/23 02/24/23 02/24/23 19:55 02:04 05:47 WBC 16.0 H RBC 4.04 L Plt Count 109 L Neutrophils # Sodium Chloride Carbon Dioxide BUN Glucose POC Glucose (mg/dL) Plasma Lactic Acid Ehsan Calcium Total Bilirubin AST ALT Creatine Kinase Troponin I 0.166 H* 0.193 H* Total Protein Albumin Urine Protein Urine Ketones Urine Blood Urine RBC Urine Mucus 02/24/23 05:47 WBC RBC Plt Count Neutrophils # Sodium 136 L Chloride 110 H Carbon Dioxide 17 L BUN 36 H Glucose 102 H POC Glucose (mg/dL) Plasma Lactic Acid Ehsan Calcium 7.5 L Total Bilirubin 1.8 H AST 245 H ALT 50 H Creatine Kinase Troponin I Total Protein 5.9 L Albumin 3.1 L Urine Protein Urine Ketones Urine Blood Urine RBC Urine Mucus - Diagnostic Findings Chest x-ray: image reviewed Assessment and Plan Assessment: Altered mental status, currently under investigation, rule out septic meningitis, encephalitis, or toxic metabolic encephalopathy. Nonenhanced brain CT on arrival showed no acute intracranial process. Acute febrile illness and sepsis, no obvious infectious process identified yet. Currently, empirically covered for possible [employer]ACT[employer] NURSE infection. Acute hypoxemic respiratory failure, secondary above, on 2 L/m nasal cannula Leukocytosis Acute rhabdomyolysis Elevated LFTs, possibly secondary to above Elevated troponins, possibly related to supply/demand mismatch Plan: Patient's medications, labs, chest x-ray reviewed I would recommend neurological workup Would recommend lumbar puncture to rule out [employer] NURSE infection EEG pending for this morning Start the patient on empiric antibiotics Blood cultures are pending Hypotension, improved with fluid resuscitation, no need for vasopressors at this time Infectious disease consult was obtained Continue IV hydration Recheck CK We will continue to follow, and further recommendations are forthcoming The patient will be monitored in the intensive care unit. I have personally seen and examined the patient, performed the documentation and the assessment and plan as written. Number of minutes spent on the visit:20 Time with Patient: Greater than 30
[2023-02-24] MEDS: AMPICILLIN 2,000 MG in SODIUM CHLORIDE 0.9% 100 ML IVPB SCH ×3 (08:25→16:42)
--- NOTE | 2023-02-24 08:56 | XR ---
EXAMINATION TYPE: XR chest 1V portable DATE OF EXAM: 02/24/2023 COMPARISON: 02/23/2023 INDICATION: Pneumonia TECHNIQUE: Single frontal view of the chest is obtained. FINDINGS: The heart size is normal. The pulmonary vasculature is normal. The lungs are clear. No suspicious focal consolidation or infiltrate is evident. IMPRESSION: 1. No acute pulmonary process.
[2023-02-24] MEDS ORDERED: levETIRAcetam IV 1,000 MG in SODIUM CHLORIDE 0.9% 250 ML IVPB ONE (09:20)
[2023-02-24] MEDS ORDERED: levETIRAcetam IV 500 MG/5 ML VIAL IV ONE (09:30)
[2023-02-24] MEDS ORDERED: ACYCLOVIR SODIUM 1,000 MG in SODIUM CHLORIDE 0.9% 250 ML IV ONE (10:00)
[2023-02-24] MEDS ORDERED: LORazepam 2 MG/ML INJ IV STA (10:32)
--- NOTE | 2023-02-24 11:21 | P.PCN ---
Date of Procedure: 02/24/23 Procedure(s) Performed: Preoperative diagnosis: 1-altered mental status. 2-meningitis Post operative diagnoses:1-altered mental status. 2-meningitis Procedure= lumbar puncture Anesthesia= lidocaine 1% 4 ml only. Condition: stable Complication: none. Description of the procedure= procedure risk and benefits discussed with the patient's family, consent signed. Patient in the ICU room 258 placed in lateral position ( right side down ), back prepped with chlorhexidine 3 times been local infiltration of the skin and subcutaneous tissue with lidocaine 1% 4 mL for skin and subcu interstitial frustrations at L4 5 levels then 22-gauge Quincke-type needle advanced slowly at L4- 5 interlaminar space there was positive cerebrospinal fluid which was clear, no heme, no paresthesia ,total of 9 ML of clear cerebrospinal fluid collected in 4 different tubes 2-2-1/2 mL in each, then the needle removed and a Band-Aid applied and patient tolerated the procedure well without any complications.
[2023-02-24] MEDS: LORazepam 2 MG/ML INJ IV PRN ×2 (12:19→16:41)
--- NOTE | 2023-02-24 12:25 | CONS ---
CONSULTATION CHIEF COMPLAINT: Elevated troponin. HISTORY OF PRESENT ILLNESS: This is a 77-year-old gentleman with no significant past medical history, who was brought into hospital with confusion, having been found by his unresponsive at home on the floor. He appears encephalopathic in the ICU, febrile with a temperature of 103.8, he is intermittently becoming tachycardic and bradycardic, but sinus rhythm. EKG reveals normal sinus rhythm, normal axis, normal intervals without acute ST-T wave changes. Has mild elevation in troponin at 0.1 and 0.1. CPK is elevated at 14,000. There is no prior history of coronary artery disease or congestive heart failure. MEDICATIONS: None. ALLERGIES: None. FAMILY HISTORY: I am unable to obtain from the patient. SOCIAL HISTORY: I am unable to obtain from the patient. REVIEW OF SYSTEMS: I am unable to obtain from the patient. PHYSICAL EXAMINATION: GENERAL: The patient appears confused, not responsive. VITAL SIGNS: T-max is 103.8, heart rate is 70 beats per minute, blood pressure is 140/62, respirations 18. NECK: There is no jugular venous distention. Carotid upstroke is normal. There is no bruit. CHEST: Reveals diminished air entry bilaterally. HEART: Reveals first and second heart sounds. No gallop. No murmur. ABDOMEN: Soft. EXTREMITIES: Did not reveal any edema. Peripheral pulses are felt. LABORATORY DATA: Labs show that the hemoglobin is 13.5, platelet count is 109. BNP is elevated. Troponins are mildly elevated. ASSESSMENT AND PLAN: Troponin elevation probably related to the systemic illness. This is not suggestive of a myocardial infarction, neither type 1 nor type 2. I will obtain a 2D echo to assess his LV function and wall motion and once he recovers from his illness, the etiology of which is unclear and is currently being worked up by the client service executive. I will consider further evaluation for his heart. MMODL / IJN: [id number] /
[2023-02-24 12:53] LABS: Glucose,CSF 52 mg/dL (40-70); Total Protein,CSF 86 mg/dL (12-60)
--- NOTE | 2023-02-24 13:12 | P.CNNES ---
History of Present Illness Consult date: 02/24/23 Requesting physician: Pranay Holman Reason for Consult: mental status changes History of Present Illness: Patient is a 77-year-old male otherwise healthy, came to the hospital by ambulance yesterday at 11:23 AM for altered mental status. Patient not able to provide any history. Family members were not present at this time. As per EMS flow sheet, when they arrived, patient was supine on carpeted floor. Patient is altered, unable to speak or follow some commands. Patient was able to smile and smile was equal. Patient had equal blood tester fowl strength but unable to hold hands out. Patient is incontinent of urine. Patient has no medical history or medications. Patient was last seen approximately 12 hours prior. Patient was febrile. Patient's blood pressure was 146/80, pulse rate 96, respirations 16, saturation 90%, blood sugar 128, temperature 101.0. Patient's vitals on arrival blood pressure 143/87, pulse rate 93 temperature 100.9, which went up to 103.2 axillary. Blood test shows WBC 13.4 hemoglobin 15.9, platelets 139. PT/PTT normal, electrolytes are normal, renal functions are normal with BUN/creatinine 29, creatinine 1.17. Lactate was 4.0, AST 61 mildly elevated with normal ALT 38. CK 1588. Troponin is mildly elevated 0.068. Repeat troponin 0.166, and 0.193.. UA shows large amount of blood, n egative leukocyte esterase. Influenza, RSV and coronal virus PCR negative. CT head revealed age-related atrophic and chronic small vessel ischemic changes without acute intracranial process. I personally reviewed CT head, agree with the findings. Chest x-ray revealed fullness about the right hilum which is likely related to patient rotation. Underlying infiltrate or mass is not excluded however. EKG shows sinus rhythm with sinus arrhythmia. Repeat chest x-ray showed no acute cardio pulmonary process. Patient was started on ceftriaxone 2 g every 12 hours as of yesterday 3:03 PM. This morning has been started on vancomycin, ampicillin and also acyclovir. As per nursing report, they have witnessed some seizure like activity, in which patient clenches his jaw, either bradycardia is down or gets tachycardia. This happens right before he gets high fever and becomes rigid. The nurse had noticed that patient becomes very rigid, with elbows flexed, and his blood tester fowl fingers are slightly twitching. He has received so far 4 mg of Ativan. Patient also has developed rhabdomyolysis. Patient also has received IV Tylenol, Ativan. At present patient is laying in the bed, patient is obviously encephalopathic. No obvious seizure-like activity noted although patient is very rigid. Review of Systems ROS unobtainable: due to mental status Past Medical History Past Medical History: No Reported History Additional Past Medical History / Comment(s): Per EMS- patient has no significa nt medical history and does not take any medications. History of Any Multi-Drug Resistant Organisms: None Reported Past Surgical History: Joint Replacement Additional Past Surgical History / Comment(s): Knee replacement x 2 Past Anesthesia/Blood Transfusion Reactions: No Reported Reaction Past Psychological History: No Psychological Hx Reported Smoking Status: Former smoker Medications and Allergies Home Medications Medication Instructions Recorded Confirmed Type No Known Home Medications 02/23/23 02/23/23 History Allergies Allergy/AdvReac Type Severity Reaction Status Date / Time No Known Allergies Allergy Verified 02/23/23 12:32 Physical Examination - Vital Signs Vital Signs: Vital Signs Temp Pulse Pulse Resp BP BP Pulse Ox 02/24/23 10:00 100.3 F H 63 24 115/68 93 L 02/24/23 09:00 68 24 92 L 02/24/23 08:00 103.8 F H 70 22 142/62 92 L 02/24/23 07:00 51 L 14 142/72 94 L 02/24/23 06:00 80 10 L 137/85 93 L 02/24/23 05:00 98.1 F 78 19 128/87 91 L 02/24/23 04:00 71 14 106/52 94 L 02/24/23 03:00 103 F H 84 15 118/93 91 L 02/24/23 02:00 73 15 128/95 94 L 02/24/23 01:00 77 19 128/81 93 L 02/24/23 00:00 103.5 F H 78 17 132/81 95 02/23/23 23:00 74 14 117/75 95 02/23/23 22:00 100.1 F H 77 93 L 02/23/23 21:00 150 H 101/71 95 02/23/23 20:34 101.6 F H 80 91 L 02/23/23 19:50 102.8 F H 162 H 22 94/56 02/23/23 19:38 102.8 F H 88 20 114/58 98 02/23/23 18:15 103.1 F H 99 22 179/81 96 02/23/23 18:05 96 20 02/23/23 16:44 99.7 F H 02/23/23 16:40 100.1 F H 87 20 139/71 97 02/23/23 15:05 100.6 F H 87 20 126/71 96 02/23/23 15:00 98.9 F 02/23/23 14:00 101.3 F H 96 18 107/54 95 02/23/23 13:20 103.2 F H 88 94 L 02/23/23 11:57 100.9 F H 02/23/23 11:27 98.4 F 93 18 143/87 97 Intake and Output 02/23/23 02/24/23 02/24/23 22:59 06:59 14:59 Intake Total 130 1140 1920 Output Total 535 310 115 Balance -080 209 2564 Intake: IV 130 1040 1920 0.9 NACL bolus 1000 Sodium Chloride 0.9% 1, 130 1040 520 000 ml @ 130 mls/hr IV . Q7H42M [facility] Rx#:[id number] acyclovir 250 ampicillin 100 rocephen 50 Intake, IV Titration 100 Amount ACETAMINOPHEN IV (For NPO 100 ) 1,000 mg In Empty Bag 1 bag @ 400 mls/hr IVPB Q6HR PRN Rx#:[id number] Output: Urine 535 310 115 Uretheral (Mitchell) 475 Other: Voiding Method Indwelling Catheter Indwelling Catheter Weight 113.398 kg 101 kg Patient is an elderly male, who is obtunded, encephalopathic, laying in the bed, in no acute distress. No obvious seizure-like activity noted. Patient is not responding to calling his name although sometimes opens his eyes slightly, makes minimal eye contact, but does not track. He did not speak any words whatsoever. Patient could not tell if he is having a headache or not. Didn't offer to any review of systems. Speech and language functions cannot be assessed. Attention, concentration and fund of knowledge is very limited. On cranial nerve examination, pupils are equal, round and reacting to light, visual myers could not be assessed due to mental status. Extraocular muscles cannot be assessed, no oculocephalics. Face is symmetric, patient did not p rotrude his tongue. Lower cranial nerves cannot be assessed. Hearing and facial sensation cannot be assessed. On muscle strength testing, patient is somewhat rigid, neck is also stiff, with nuchal rigidity. There is no obvious pronator drift and the patient slowly brings his both hands down equally. He does make slight blood tester fowl about 3 bilaterally. No obvious focality. Deep tendon reflexes are overall decrease, symmetric and plantars are upgoing bilaterally. Sensory to touch cannot be assessed. Patient does minimally grimace on painful stimuli. Cerebellar function cannot be tested on either side. Tone is increased bilaterally. Gait deferred.. On general examination, there is no carotid bruit or murmur, S1-S2 audible. Chest is clear on consultation. Abdomen is soft nontender. No organomegaly, bowel sounds present. Peripheral pulses are present. No edema. Results - Laboratory Findings CBC and BMP: 02/24/23 05:47 02/24/23 05:47 Abnormal Lab Findings: Abnormal Labs 02/23/23 02/23/23 02/23/23 12:25 12:30 12:30 WBC 13.4 H RBC Plt Count 139 L Neutrophils # 10.5 H Sodium Chloride Carbon Dioxide BUN 29 H Glucose 118 H POC Glucose (mg/dL) 121 H Plasma Lactic Acid Ehsan Calcium Total Bilirubin 1.7 H AST 61 H ALT Creatine Kinase 1588 H* Troponin I Total Protein Albumin Urine Protein Urine Ketones Urine Blood Urine RBC Urine Mucus 02/23/23 02/23/23 02/23/23 12:30 12:30 12:30 WBC RBC Plt Count Neutrophils # Sodium Chloride Carbon Dioxide BUN Glucose POC Glucose (mg/dL) Plasma Lactic Acid Ehsan 4.0 H* Calcium Total Bilirubin AST ALT Creatine Kinase Troponin I 0.068 H* Total Protein Albumin Urine Protein 1+ H Urine Ketones 1+ H Urine Blood Large H Urine RBC 14 H Urine Mucus Few H 02/23/23 02/24/23 02/24/23 19:55 02:04 05:47 WBC 16.0 H RBC 4.04 L Plt Count 109 L Neutrophils # Sodium Chloride Carbon Dioxide BUN Glucose POC Glucose (mg/dL) Plasma Lactic Acid Ehsan Calcium Total Bilirubin AST ALT Creatine Kinase Troponin I 0.166 H* 0.193 H* Total Protein Albumin Urine Protein Urine Ketones Urine Blood Urine RBC Urine Mucus 02/24/23 02/24/23 05:47 05:47 WBC RBC Plt Count Neutrophils # Sodium 136 L Chloride 110 H Carbon Dioxide 17 L BUN 36 H Glucose 102 H POC Glucose (mg/dL) Plasma Lactic Acid Ehsan Calcium 7.5 L Total Bilirubin 1.8 H AST 245 H ALT 50 H Creatine Kinase 00294 H* Troponin I Total Protein 5.9 L Albumin 3.1 L Urine Protein Urine Ketones Urine Blood Urine RBC Urine Mucus Assessment and Plan Assessment: * Altered mental status, acute onset with high fevers, and severe encephalopathy, nuchal and generalized rigidity and some tremulousness. Rule out encephalitis, meningitis. Rule out West Nile virus. * Rule out neuroleptic-malignant syndrome. Patient currently not on any antipsychotics or any psychoactive medications at home. * Acute rhabdomyolysis * Elevated cardiac enzymes * History of bilateral knee replacement. Plan: * Patient underwent lumbar puncture today. It was colorless and clear. So far it shows glucose 52, protein 86 (12-60). Await cell count with differential. * Continue ceftriaxone, vancomycin, ampicillin and acyclovir. ID on board. * EEG revealed background slowing and disorganization of mild degree suggestive of encephalopathy. There is no epileptiform activity. * Continue Keppra 750 mg twice a day for now. * Await West Nile virus serology from CSF, comprehensive virus dissection. Infectious diseases on board. * Cardiology on board for elevated cardiac enzymes and bradycardia/tachycardia. * Follow CK, temperature. * Consider MRI of the brain with and without contrast if possible, if no abnormality identified with a lumbar puncture. * Discussed with patient's nursing detail. Neurology will follow clinically. Thank you for the consult.
[2023-02-24 13:57] LABS: Appearance,CSF Clear; CSF Tube Number 4
[2023-02-24 13:58] LABS: Nucleated Cells, CSF 4 u/L (0-5); Red Blood Cell,CSF 358 u/L (0-10)
--- NOTE | 2023-02-24 14:16 | CONS ---
CONSULTATION CHIEF COMPLAINT: Elevated troponin. HISTORY OF PRESENT ILLNESS: Mr. Avelar is a 77-year-old gentleman with no significant past medical history, was found on the floor by his . Had fever and had been encephalopathic since. He came to the ER and from there, he had been admitted to ICU. He received fluid boluses for hypotension. Blood cultures have been done and he is currently on antibiotics. There is a consideration for lumbar puncture for possible meningitis evaluation. PAST MEDICAL HISTORY: I am unable to obtain from the patient, who is confused. PAST SURGICAL HISTORY: I am unable to obtain from the patient, who is confused. MEDICATIONS: I am unable to obtain from the patient, who is confused. ALLERGIES: I am unable to obtain from the patient, who is confused. REVIEW OF SYSTEMS: I am unable to obtain from the patient, who is confused. PHYSICAL EXAMINATION: VITAL SIGNS: The patient has a heart rate DICTATION ENDS HERE MMODL / IJN: [id number] /
--- NOTE | 2023-02-24 16:05 | CA ---
Transthoracic Echo Report Name: Michele Avelar Age: 77 Gender: M : 1945 Exam Date: 02/24/2023 13:23 Exam Location: [place] [facility] Ht (in): 76 Wt (lb): 222 Ordering Physician: Vashti Eaton Attending/Referring Phys: [id number], [employer] Jai Ramos Procedure CPT: Indications: LV function Cardiac Hx: Technical Quality: Technically difficult study Contrast 1: Total Dose (mL): Contrast 2: Total Dose (mL): MEASUREMENTS (Male / Female) Normal Values 2D ECHO LV Diastolic Diameter PLAX 4.8 cm 4.2 - 5.9 / 3.9 - 5.3 cm LV Systolic Diameter PLAX 3.2 cm IVS Diastolic Thickness 1.1 cm 0.6 - 1.0 / 0.6 - 0.9 cm LVPW Diastolic Thickness 1.1 cm 0.6 - 1.0 / 0.6 - 0.9 cm LV Relative Wall Thickness 0.5 RV Internal Dim ED PLAX 3.4 cm LVOT Diameter 2.3 cm Aortic Root Diameter 3.8 cm LA Systolic Diameter LX 2.6 cm 3.0 - 4.0 / 2.7 - 3.8 cm LV Diastolic Volume MOD BP 65.4 cm??? 67 - 155 / 56 - 104 cm??? LV Systolic Volume MOD BP 24.9 cm??? 22 - 58 / 19 - 49 cm??? LV Ejection Fraction MOD BP 62.0 % >= 55 % LV Cardiac Index MOD BP 954.7 cm???/min???m??? LV Diastolic Volume MOD 4C 78.3 cm??? LV Systolic Volume MOD 4C 25.1 cm??? LV Ejection Fraction MOD 4C 67.9 % LV Cardiac Index MOD 4C 1252.2 cm???/min???m??? LV Diastolic Length 4C 7.8 cm LV Systolic Length 4C 6.7 cm LV Diastolic Volume MOD 2C 51.7 cm??? LV Systolic Volume MOD 2C 26.6 cm??? LV Ejection Fraction MOD 2C 48.6 % LV Cardiac Index MOD 2C 591.9 cm???/min???m??? LV Diastolic Length 2C 7.3 cm LV Systolic Length 2C 6.3 cm LA Volume 69.4 cm??? 18 - 58 / 22 - 52 cm??? DOPPLER AV Peak Velocity 141.6 cm/s AV Peak Gradient 8.0 mmHg LVOT Peak Velocity 130.7 cm/s LVOT Peak Gradient 6.8 mmHg LVOT Velocity Time Integral 27.4 cm LVOT Stroke Volume 111.3 cm??? LVOT Stroke Volume Index 48.0 ml/m??? LVOT Cardiac Index 2621.0 cm???/min???m??? AV Area Cont Eq pk 3.7 cm??? MV Peak Velocity 97.8 cm/s MV Peak Gradient 3.8 mmHg MV Mean Velocity 47.5 cm/s MV Mean Gradient 1.2 mmHg MV Velocity Time Integral 36.0 cm MR Peak Velocity 306.2 cm/s MR Peak Gradient 37.5 mmHg Mitral E Point Velocity 91.6 cm/s Mitral A Point Velocity 100.5 cm/s Mitral E to A Ratio 0.9 MV Deceleration Time 213.3 ms MV E' Velocity 9.4 cm/s Mitral E to MV E' Ratio 9.7 TR Peak Velocity 245.7 cm/s TR Peak Gradient 24.1 mmHg Right Ventricular Systolic Press 29.2 mmHg FINDINGS Left Ventricle Normal LV size and wall thickness.left ventricular ejection fraction is estimated at 55-60_ %. Right Ventricle Normal right ventricular size. RVSP=31mmHg. Right Atrium Normal right atrial size. Left Atrium Normal left atrial size. LA volume index= 30ml/m2 Mitral Valve Structurally normal mitral valve. Mild MR. Aortic Valve Trileaflet aortic valve. No aortic valve stenosis or regurgitation. Tricuspid Valve Structurally normal tricuspid valve. Mild TR. Pulmonic Valve Pericardium Normal pericardium. Aorta AO root aysha= 3.8cm. CONCLUSIONS Left ventricular ejection fraction 55-60% RVSP 31 Mild mitral regurgitation Mild tricuspid regurgitation No pericardial effusion Previewed by: Dr. Dank Sarabia DO (Electronically Signed) Final Date: 24 February 2023 16:05
[2023-02-24] MEDS: DEXMEDETOMIDINE/0.9% NACL(PMX) 400 MCG in EMPTY BAG 1 BAG IV SCH (16:25)
[2023-02-24] MEDS: PIPERACILLIN-TAZOBACTAM 3.375 GM in SODIUM CHLORIDE 0.9% 100 ML IVPB SCH ×2 (17:25→23:24)
[2023-02-24] MEDS: ACYCLOVIR SODIUM 1,000 MG in SODIUM CHLORIDE 0.9% 250 ML IVPB SCH (18:21)
--- NOTE | 2023-02-24 21:57 | P.CONS ---
History of Present Illness - Reason for Consult Consult date: 02/24/23 Pneumonia, sepsis Requesting physician: Pranay Holman - Chief Complaint Mental status changes x one day - History of Present Illness Patient is a 77-year-old male presenting to the hospital yesterday around noon after the patient was found to be unresponsive by the apparently patient did watch the son denied game and subsequently was lying on the floor which is not usual for him as the history provided to the nursing staff by the next morning that is the day of presentation to the hospital patient could not be awakened by the she called EMS and the patient was brought into the hospital on arrival to the ER patient was initially afebrile subsequently spiking a fever with a temperature of 103.2 F and the patient has been febrile for more than 24 hours now patient did not have significant tachycardia hypertension or hypoxemia some low O2 sats has been reported and the patient is currently on 2 L nasal cannula oxygen patient did have a white count of 13.4 which is up to 16,000 today with a left shift BUN was elevated creatinine is normal liver enzymes are mildly elevated and the patient also have elevated CK which is over 13, 961 today urine was negative influenza RSV and COVID testing was negative with suspicious for meningitis LP was requested which was completed mildly traumatic with a red cell of 358 white cell was normal at 4 glucose was normal at 52 protein was mild elevated 86 patient did have a chest x-ray fullness about the right hilum which is likely due to patient rotation underlying infection was not excluded patient is currently on a combination of vancomycin and Rocephin amoxicillin acyclovir infectious disease was consulted for further management of antibiotic therapy most information has been obtained from review the chart and talking nursing staff as patient is currently lethargic and cannot provide any history patient is hemodynamically stable no vomiting or diarrhea has been reported Review of Systems Positive points has been mentioned in HPI complete review could not be obtained because of his underlying mental status Past Medical History Past Medical History: No Reported History Additional Past Medical History / Comment(s): Per EMS- patient has no significant medical history and does not take any medications. History of Any Multi-Drug Resistant Organisms: None Reported Past Surgical History: Joint Replacement Additional Past Surgical History / Comment(s): Knee replacement x 2 Past Anesthesia/Blood Transfusion Reactions: No Reported Reaction Past Psychological History: No Psychological Hx Reported Smoking Status: Former smoker Medications and Allergies Home Medications Medication Instructions Recorded Confirmed Type No Known Home Medications 02/23/23 02/23/23 History Allergies Allergy/AdvReac Type Severity Reaction Status Date / Time No Known Allergies Allergy Verified 02/23/23 12:32 Physical Exam Vitals: Vital Signs Temp Pulse Pulse Resp BP BP Pulse Ox 02/24/23 09:00 68 24 92 L 02/24/23 08:00 103.8 F H 70 22 142/62 92 L 02/24/23 07:00 51 L 14 142/72 94 L 02/24/23 06:00 80 10 L 137/85 93 L 02/24/23 05:00 98.1 F 78 19 128/87 91 L 02/24/23 04:00 71 14 106/52 94 L 02/24/23 03:00 103 F H 84 15 118/93 91 L 02/24/23 02:00 73 15 128/95 94 L 02/24/23 01:00 77 19 128/81 93 L 02/24/23 00:00 103.5 F H 78 17 132/81 95 02/23/23 23:00 74 14 117/75 95 02/23/23 22:00 100.1 F H 77 93 L 02/23/23 21:00 150 H 101/71 95 02/23/23 20:34 101.6 F H 80 91 L 02/23/23 19:50 102.8 F H 162 H 22 94/56 02/23/23 19:38 102.8 F H 88 20 114/58 98 02/23/23 18:15 103.1 F H 99 22 179/81 96 02/23/23 18:05 96 20 02/23/23 16:44 99.7 F H 02/23/23 16:40 100.1 F H 87 20 139/71 97 02/23/23 15:05 100.6 F H 87 20 126/71 96 02/23/23 15:00 98.9 F 02/23/23 14:00 101.3 F H 96 18 107/54 95 02/23/23 13:20 103.2 F H 88 94 L 02/23/23 11:57 100.9 F H 02/23/23 11:27 98.4 F 93 18 143/87 97 Intake and Output 02/23/23 02/24/23 02/24/23 22:59 06:59 14:59 Intake Total 130 1140 1540 Output Total 535 310 85 Balance -371 896 0716 Intake: IV 130 1040 1540 0.9 NACL bolus 1000 Sodium Chloride 0.9% 1, 130 1040 390 000 ml @ 130 mls/hr IV . Q7H42M [facility] Rx#:[id number] ampicillin 100 rocephen 50 Intake, IV Titration 100 Amount ACETAMINOPHEN IV (For NPO 100 ) 1,000 mg In Empty Bag 1 bag @ 400 mls/hr IVPB Q6HR PRN Rx#:[id number] Output: Urine 535 310 85 Uretheral (Mitchell) 475 Other: Voiding Method Indwelling Catheter Indwelling Catheter Weight 113.398 kg 101 kg GENERAL DESCRIPTION: Elderly male lying in bed, no distress. No tachypnea or accessory muscle of respiration use. HEENT: Shows Pallor , no scleral icterus. Oral mucous membrane is dry. No pharyngeal erythema or thrush NECK: Trachea central, no thyromegaly. LUNGS: Unlabored breathing. Decreased breath sounds at the base HEART: S1, S2, regular rate and rhythm. No loud murmur ABDOMEN: Soft, no tenderness , EXTREMITIES: No edema of feet. SKIN: No rash, no masses palpable. NEUROLOGICAL: The patient is lethargic orientation could not be determined Results CBC & Chem 7: 03/13/23 07:08 03/13/23 07:08 Labs: Abnormal Lab Results - Last 24 Hours (Table) 02/23/23 02/23/23 02/23/23 Range/Units 12:25 12:30 12:30 WBC 13.4 H (3.8-10.6) k/uL RBC (4.30-5.90) m/uL Plt Count 139 L (150-450) k/uL Neutrophils # 10.5 H (1.3-7.7) k/uL Sodium (137-145) mmol/L Chloride (98-107) mmol/L Carbon Dioxide (22-30) mmol/L BUN 29 H (9-20) mg/dL Glucose 118 H (74-99) mg/dL POC Glucose (mg/dL) 121 H (70-110) mg/dL Plasma Lactic Acid Ehsan (0.7-2.0) mmol/L Calcium (8.4-10.2) mg/dL Total Bilirubin 1.7 H (0.2-1.3) mg/dL AST 61 H (17-59) U/L ALT (4-49) U/L Creatine Kinase 1588 H* (55-170) U/L Troponin I (0.000-0.034) ng/mL Total Protein (6.3-8.2) g/dL Albumin (3.5-5.0) g/dL Urine Protein (Negative) Urine Ketones (Negative) Urine Blood (Negative) Urine RBC (0-5) /hpf Urine Mucus (None) /hpf 02/23/23 02/23/23 02/23/23 Range/Units 12:30 12:30 12:30 WBC (3.8-10.6) k/uL RBC (4.30-5.90) m/uL Plt Count (150-450) k/uL Neutrophils # (1.3-7.7) k/uL Sodium (137-145) mmol/L Chloride (98-107) mmol/L Carbon Dioxide (22-30) mmol/L BUN (9-20) mg/dL Glucose (74-99) mg/dL POC Glucose (mg/dL) (70-110) mg/dL Plasma Lactic Acid Ehsan 4.0 H* (0.7-2.0) mmol/L Calcium (8.4-10.2) mg/dL Total Bilirubin (0.2-1.3) mg/dL AST (17-59) U/L ALT (4-49) U/L Creatine Kinase (55-170) U/L Troponin I 0.068 H* (0.000-0.034) ng/mL Total Protein (6.3-8.2) g/dL Albumin (3.5-5.0) g/dL Urine Protein 1+ H (Negative) Urine Ketones 1+ H (Negative) Urine Blood Large H (Negative) Urine RBC 14 H (0-5) /hpf Urine Mucus Few H (None) /hpf 02/23/23 02/24/23 02/24/23 Range/Units 19:55 02:04 05:47 WBC 16.0 H (3.8-10.6) k/uL RBC 4.04 L (4.30-5.90) m/uL Plt Count 109 L (150-450) k/uL Neutrophils # (1.3-7.7) k/uL Sodium (137-145) mmol/L Chloride (98-107) mmol/L Carbon Dioxide (22-30) mmol/L BUN (9-20) mg/dL Glucose (74-99) mg/dL POC Glucose (mg/dL) (70-110) mg/dL Plasma Lactic Acid Ehsan (0.7-2.0) mmol/L Calcium (8.4-10.2) mg/dL Total Bilirubin (0.2-1.3) mg/dL AST (17-59) U/L ALT (4-49) U/L Creatine Kinase (55-170) U/L Troponin I 0.166 H* 0.193 H* (0.000-0.034) ng/mL Total Protein (6.3-8.2) g/dL Albumin (3.5-5.0) g/dL Urine Protein (Negative) Urine Ketones (Negative) Urine Blood (Negative) Urine RBC (0-5) /hpf Urine Mucus (None) /hpf 02/24/23 02/24/23 Range/Units 05:47 05:47 WBC (3.8-10.6) k/uL RBC (4.30-5.90) m/uL Plt Count (150-450) k/uL Neutrophils # (1.3-7.7) k/uL Sodium 136 L (137-145) mmol/L Chloride 110 H (98-107) mmol/L Carbon Dioxide 17 L (22-30) mmol/L BUN 36 H (9-20) mg/dL Glucose 102 H (74-99) mg/dL POC Glucose (mg/dL) (70-110) mg/dL Plasma Lactic Acid Ehsan (0.7-2.0) mmol/L Calcium 7.5 L (8.4-10.2) mg/dL Total Bilirubin 1.8 H (0.2-1.3) mg/dL AST 245 H (17-59) U/L ALT 50 H (4-49) U/L Creatine Kinase 49707 H* (55-170) U/L Troponin I (0.000-0.034) ng/mL Total Protein 5.9 L (6.3-8.2) g/dL Albumin 3.1 L (3.5-5.0) g/dL Urine Protein (Negative) Urine Ketones (Negative) Urine Blood (Negative) Urine RBC (0-5) /hpf Urine Mucus (None) /hpf Assessment and Plan (1) Encephalopathy acute Current Visit: Yes Status: Acute Code(s): G93.40 - ENCEPHALOPATHY, UNSPECIFIED SNOMED Code(s): 86814774 (2) Altered mental status Current Visit: Yes Status: Acute Code(s): R41.82 - ALTERED MENTAL STATUS, UNSPECIFIED SNOMED Code(s): 963056589 (3) Fever Current Visit: Yes Status: Acute Code(s): R50.9 - FEVER, UNSPECIFIED SNOMED Code(s): 905499700 Plan: 1patient with SIRS in this patient with a fever elevated white count tachycardia with significant mental status changes high clinical suspicious for possible encephalitis/meningitis however the patient LP is relatively clear only mildly elevated protein of 86 patient chest x-ray negative for pneumonia urine has been negative mildly elevated liver enzymes and the patient did have evidence of rhabdomyolysis as the patient has been on the floor for more than 12 hours however no evidence of any bruising or injury has been noticed abdominal soft rectal examination 2-we will obtain ultrasound of the abdomen with evidence of elevated liver enzymes 3-check hepatitis panel 4-discontinue vancomycin Rocephin and amoxicillin as meningitis has been ruled out, we will empirically covered with Zosyn while waiting for the work-up to be completed We will follow on clinical condition and cultures to further adjust medication if needed Thank you for this consultation we will follow the patient along with you Dictation was produced using [employer] dictation software. please excuse any grammatical, word or spelling errors. Time with Patient: Greater than 30
[2023-02-24] MEDS ORDERED: VANCOMYCIN 1,750 MG in SODIUM CHLORIDE 0.9% 500 ML 500 ML IVPB SCH (22:00)
--- NOTE | 2023-02-24 22:40 | EEG ---
DATE OF SERVICE: 02/24/2023 ELECTROENCEPHALOGRAM REPORT PREAMBLE: This is a 77-year-old male with acute onset of altered mental status. The patient is stiff, rigid, possible meningitis/encephalitis with some seizure-like activity. This study is performed to rule out any evidence of herpes encephalitis. EEG FINDINGS: This is a 21-channel digital EEG recorded with video component, utilizing 10/20 international system with referential and bipolar montages. Background consists of moderately well-developed and regulated, mixed frequencies of 9 to 10 hertz alpha, intermixed with some moderate amplitude 5 to 6 hertz theta activity seen in bihemispheric region. Background does not seem to be clearly reactive to opening eye or closing. Photic stimulation was not performed. Different stages of sleep were not seen. No focal or generalized epileptiform activity was seen. IMPRESSION: This is an abnormal EEG due to background slowing and disorganization, suggestive of mild encephalopathy. No focal, lateralized or epileptiform activity was seen. MMSHERIDAN / WALTERN: [id number] / [facility] HOSPITALDayan
[2023-02-25] MEDS: LORazepam 2 MG/ML INJ IV PRN ×2 (00:47→04:16)
[2023-02-25] MEDS: ACETAMINOPHEN IV (For NPO) 1,000 MG in EMPTY BAG 1 BAG IVPB PRN ×4 (01:01→21:47)
[2023-02-25] MEDS: ACYCLOVIR SODIUM 1,000 MG in SODIUM CHLORIDE 0.9% 250 ML IVPB SCH ×3 (01:05→18:28)
[2023-02-25] MEDS: SODIUM CHLORIDE 0.9% 1,000 ML IV SCH ×3 (04:22→21:46)
[2023-02-25 06:09] LABS: Basophils % (A) 0 %; Eosinophils % (A) 0 %; HCT 37.4 % (39.0-53.0); HGB 13.1 gm/dL (13.0-17.5); Lymphocytes # (A) 1.2 k/uL (1.0-4.8); Lymphocytes % (A) 8 %; MCH 33.7 pg (25.0-35.0); MCHC 34.9 g/dL (31.0-37.0); MCV 96.6 fL (80.0-100.0); Mean Platelet Volume 9.6; Monocytes % (A) 6 %; Neutrophils # (A) 12.5 k/uL (1.3-7.7); Neutrophils % (A) 83 %; RBC 3.87 m/uL (4.30-5.90); RDW 12.1 % (11.5-15.5); WBC 15.1 k/uL (3.8-10.6)
[2023-02-25 06:57] LABS: ALT 82 U/L (4-49); AST 340 U/L (17-59); African American GFR (CKD) 68 (>60 ml/min/1.73 sqM); Albumin 2.7 g/dL (3.5-5.0); Alkaline Phosphatase 39 U/L (38-126); Anion Gap 7 mmol/L; Blood Urea Nitrogen 36 mg/dL (9-20); C Reactive Protein 1.7 mg/dL (<1.0); Calcium 7.3 mg/dL (8.4-10.2); Carbon Dioxide 20 mmol/L (22-30); Chloride 112 mmol/L (98-107); Glucose 84 mg/dL (74-99); Non-African American GFR(CKD) 59 (>60 ml/min/1.73 sqM); Potassium 3.6 mmol/L (3.5-5.1); Sodium 139 mmol/L (137-145); Total Bilirubin 1.5 mg/dL (0.2-1.3); Total Protein 5.4 g/dL (6.3-8.2)
[2023-02-25] MEDS ORDERED: Potassium Replacement Protocol 1 EACH MISC MISCELLANE PRN (07:51)
[2023-02-25 07:52] LABS: Urine Alcohol Negative (Negative); Urine Barbiturate Negative (Negative); Urine Cocaine Negative (Negative); Urine Methadone Negative (Negative); Urine Opiates Negative (Negative); Urine Phencyclidine Negative (Negative)
[2023-02-25 08:11] LABS: Platelet Count 94 k/uL (150-450)
--- NOTE | 2023-02-25 08:23 | US ---
EXAMINATION TYPE: US abdomen complete DATE OF EXAM: 02/25/2023 COMPARISON: NONE CLINICAL INDICATION: Male, 77 years old with history of elevated LFT and Fever; LFT's and Fever TECHNIQUE: Multiple sonographic images of the abdomen are obtained. FINDINGS: EXAM MEASUREMENTS: Liver Length: 19.1 cm Gallbladder Wall: 0.2 cm CBD: 0.4 cm Spleen: 12.8 cm Right Kidney: 10.7x5.2x5.6 cm Left Kidney: not visualized CHAIRMAN AND CEO NOTES: Pancreas: mostly obscured by bowel, small portion of the head visualized wnl Liver: obscured by bowel and ribs, visualized portions appear heterogenous, liver is enlarged Gallbladder: small echogenic area noted in neck measuring up to 0.8cm, unable to assess for mobility as patient could not move. Possible sludge vs. Artifact Evidence for sonographic Chambers's sign: No CBD: wnl Spleen: wnl, poorly visualized Right Kidney: wnl, limited by bowel and ribs Left Kidney: not visualized as Lt Kidney fossa was obscured by bowel, LLQ scanned for pelvic kidney Upper IVC: wnl Abd Aorta: wnl, prox Aorta obscured by bowel Exam limited as ICU patient was unable to take deep held inspiration or change positions, as well as bowel and rib shadows. The intrahepatic portion of the IVC and proximal abdominal aorta are within normal limits. Common bi le duct is unremarkable. The visualized portions of the pancreas are homogenous. The spleen is unre markable Right Kidney is free of hydronephrosis. No renal lesions are seen. IMPRESSION: 1. Sludge versus artifact in the gallbladder. 2. Hepatomegaly 3. Examination limited due to bowel gas.
--- NOTE | 2023-02-25 08:28 | P.PN ---
Subjective Principal diagnosis: Altered mental status This is 77-year-old white male with no significant past medical history came in and septic shock and questionable pneumonia. He was significant tachycardia with hypotension and was placed in ICU for observation. He continues to have significant mental status changes. Question febrile seizure element. Temperature is 102.8. IV Tylenol has been administered. Appreciate multiple consultants input. Mental status still unresponsive to commands to me. Objective - Vital Signs Vital signs: Vital Signs Temp 102.6 F H 02/25/23 08:00 Pulse 66 02/25/23 08:00 Resp 25 H 02/25/23 08:00 BP 116/61 02/25/23 08:00 Pulse Ox 95 02/25/23 08:17 FiO2 Intake & Output 02/24/23 02/25/23 02/25/23 18:59 06:59 18:59 Intake Total 3380 2040 600 Output Total 590 600 75 Balance 2790 1440 525 Weight 115 kg Intake: IV 3280 2040 600 0.9 NACL bolus 1000 Piperacillin-Tazobactam 3 100 100 100 .375 gm In Sodium Chloride 0.9% 100 ml @ 25 mls/hr IVPB Q8HR [facility] Rx# :[id number] Potassium Chloride 10 meq 100 In Water For Injection 1 100ml.bag @ 100 mls/hr IVPB Q1H [facility] Rx#: [id number] Sodium Chloride 0.9% 1, 1430 1690 130 000 ml @ 130 mls/hr IV . Q7H42M [facility] Rx#:[id number] acyclovir 500 250 270 ampicillin 200 rocephen 50 Intake, IV Titration 100 Amount Ampicillin 2,000 mg In 100 Sodium Chloride 0.9% 100 ml @ 200 mls/hr IVPB Q4HR [facility] Rx#:[id number] Output: Urine 590 600 75 Other: Voiding Method Indwelling Catheter Indwelling Catheter - Constitutional General appearance: Present: no acute distress. Absent: cooperative - EENT Eyes: Absent: abnormal pupil - Neck Neck: Absent: lymphadenopathy - Respiratory Respiratory: bilateral: diminished - Cardiovascular Rhythm: regular Heart sounds: normal: S1, S2 Abnormal Heart Sounds: Absent: S3 Gallop - Gastrointestinal General gastrointestinal: Present: soft. Absent: tenderness - Integumentary Integumentary: Absent: cellulitis - Labs CBC & Chem 7: 02/25/23 05:19 02/25/23 05:19 Labs: Abnormal Lab Results - Last 24 Hours (Table) 02/24/23 02/24/23 02/25/23 Range/Units 05:47 11:10 05:19 WBC (3.8-10.6) k/uL RBC (4.30-5.90) m/uL Hct (39.0-53.0) % Plt Count (150-450) k/uL Neutrophils # (1.3-7.7) k/uL Chloride 112 H (98-107) mmol/L Carbon Dioxide 20 L (22-30) mmol/L BUN 36 H (9-20) mg/dL Calcium 7.3 L (8.4-10.2) mg/dL Total Bilirubin 1.5 H (0.2-1.3) mg/dL AST 340 H (17-59) U/L ALT 82 H (4-49) U/L Creatine Kinase 88569 H* (55-170) U/L C-Reactive Protein 1.7 H (<1.0) mg/dL Total Protein 5.4 L (6.3-8.2) g/dL Albumin 2.7 L (3.5-5.0) g/dL CSF RBC 358 H (0-10) u/L CSF Total Protein 86 H (12-60) mg/dL 02/25/23 Range/Units 05:19 WBC 15.1 H (3.8-10.6) k/uL RBC 3.87 L (4.30-5.90) m/uL Hct 37.4 L (39.0-53.0) % Plt Count 94 L (150-450) k/uL Neutrophils # 12.5 H (1.3-7.7) k/uL Chloride (98-107) mmol/L Carbon Dioxide (22-30) mmol/L BUN (9-20) mg/dL Calcium (8.4-10.2) mg/dL Total Bilirubin (0.2-1.3) mg/dL AST (17-59) U/L ALT (4-49) U/L Creatine Kinase (55-170) U/L C-Reactive Protein (<1.0) mg/dL Total Protein (6.3-8.2) g/dL Albumin (3.5-5.0) g/dL CSF RBC (0-10) u/L CSF Total Protein (12-60) mg/dL Microbiology - Last 24 Hours (Table) 02/24/23 11:10 CSF Gram Stain - Preliminary Cerebral Spinal Fluid 02/23/23 12:15 Blood Culture - Preliminary Blood 02/23/23 12:30 Blood Culture - Preliminary Blood Assessment and Plan (1) Altered mental status Current Visit: Yes Status: Acute Code(s): R41.82 - ALTERED MENTAL STATUS, UNSPECIFIED SNOMED Code(s): 802345249 (2) Pneumonia Current Visit: Yes Status: Acute Code(s): J18.9 - PNEUMONIA, UNSPECIFIED ORGANISM SNOMED Code(s): 937948370 (3) Septic shock Current Visit: Yes Status: Acute Code(s): A41.9 - SEPSIS, UNSPECIFIED ORGANISM; R65.21 - SEVERE SEPSIS WITH SEPTIC SHOCK SNOMED Code(s): 66478138 Plan: Fever control. Ativan to be given. IV Tylenol. Check CBC and CMP in a.m. Appreciate multiple consultants input. Cultures are pending. Appreciate ID input as well. Continue IV antibiotics.
[2023-02-25] MEDS: PIPERACILLIN-TAZOBACTAM 3.375 GM in SODIUM CHLORIDE 0.9% 100 ML IVPB SCH ×2 (08:34→16:26)
[2023-02-25] MEDS: POTASSIUM CHLORIDE 10 MEQ in WATER FOR INJECTION 1 100ML.BAG IVPB SCH ×2 (08:39→10:02)
[2023-02-25] MEDS: DEXMEDETOMIDINE/0.9% NACL(PMX) 400 MCG in EMPTY BAG 1 BAG IV SCH (08:54)
--- NOTE | 2023-02-25 09:37 | PN ---
PROGRESS NOTE SUBJECTIVE: Michele is a 77-year-old gentleman, who is admitted to hospital with confusion and encephalopathy. We were consulted because of mild elevation in troponin. He remains confused this morning. He sat a little more combative. Has intermittent episodes of high-grade fever. From cardiac standpoint, he had 1 episode of tachycardia, but otherwise remains in sinus rhythm. An echocardiogram reveals normal LV function and wall motion. OBJECTIVE: VITAL SIGNS: Afebrile, heart rate is 66 beats and blood pressure is 160/62, respiratory rate is 18, O2 saturation is 96% on 2 L. NECK: There is no jugular venous distention. Carotid upstroke is normal. There is no bruit. CHEST: Reveals good air entry bilaterally. HEART: Reveals first and second heart sounds. No gallop. No murmur. No rub. ABDOMEN: Soft, nontender. EXTREMITIES: Did not reveal any edema. Peripheral pulses are felt. LABORATORY DATA: Labs show a hemoglobin of 15.1, platelet count is 94. Potassium is 3.6, creatinine is 1.1. ASSESSMENT AND PLAN: 1. Elevated troponin secondary to acute febrile illness. 2. Acute febrile illness and encephalopathy of unclear etiology. Workup in progress. From cardiac standpoint, the patient is doing well, remains in sinus rhythm. Echocardiogram appears normal. No further workup at this time. MMODL / IJN: [id number] /
[2023-02-25] MEDS: HYDROmorphone 1 MG/ML 1 ML SYRINGE IVP PRN (12:38)
--- NOTE | 2023-02-25 12:45 | P.PN ---
Subjective Progress Note Date: 02/25/23 Principal diagnosis: Sepsis and mental status change I am seeing this patient in new consultation today 02/24/2023 after the patient presented to the ER yesterday evening with concerns of altered mental status. Patient is a 77-year-old white male with a limited past medical history. Apparently, the patient's found him down on the ground early yesterday morning confused. His last known well time was the night prior. Nonenhanced brain CT on arrival shows age-related atrophic and chronic small vessel ischemia without any obvious acute cranial process. Initial chest x-ray on arrival showed fullness around the right hilum likely related patient rotation. Underlying infiltrate or mass not excluded. CBC shows leukocytosis with a WBC count of 16, hemoglobin 13.5, hematocrit 39.1, platelets 109,000. BMP shows sodium 136, potassium 3.7, chloride 110, serum bicarb 17, BUN 36, creatinine 1.22, glucose 102. LFTs are mildly elevated. Troponins are 1.66 and 1.9. Ur inalysis not particularly concerning for UTI. Negative for influenza, RSV, COVID-19. Patient was originally admitted to the floor, and was transferred to the ICU last night for tachycardia and hypotension. Yesterday, he was given a total of 2.5 L normal saline bolus. On my evaluation, the patient is lying in bed, extremities are rigid, he is febrile with a t-max of 103 F. He is on 2 L/m nasal cannula, oxygenating around 94%. He is disoriented and unable to provide any meaningful information. He mostly mumbles. I did speak to the patient's daughter, who denies any recent sinus, ear, or pulmonary infections. I am concerned for possible encephalitis or meningitis. I spoke with neurology last night, and updated them on the patient. There is an EEG pending for the morning. Patient is empirically covered with combination of ampicillin, vancomycin, and Rocephin. Infectious disease consult was also placed. Heart rhythm is currently normal sinus on bedside monitor. Blood pressure is normotensive. Normal saline is infusing at 130 ML's per hour. No need for vasopressors at this time. Patient will need a thorough neurological workup. He is being monitored in the intensive care unit in the meantime. Patient was seen and examined today on 02/25/2023, remains in the ICU, spiking temperatures intermittently, he had a T-max of 102.9. Spinal fluid workup so far is negative for bacterial meningitis. However viral meningitis/encephalitis is not entirely ruled out, and workup is still in progress. In the meantime the patient is being followed by many consultants including infectious disease and urology. Apparently his EEG was negative for seizure activity. Labs today showed leukocytosis with WBC of 15.1 hemoglobin is normal electrolytes are normal bicarb is 20 creatinine is 1.7, improved compared to his baseline on admission liver enzymes remain at the time elevated ammonia level is normal. Drug screen was negative. CPK was elevated on admission, no CPK noted today. His pro-calcitonin level 0.31. Ultrasound of the abdomen and pelvis showed sludge in the gallbladder, it also showed hepatomegaly, otherwise limited exam Objective - Vital Signs Vital signs: Vital Signs Temp 100.9 F H 02/25/23 10:00 Pulse 65 02/25/23 11:00 Resp 24 02/25/23 11:00 BP 99/53 02/25/23 11:00 Pulse Ox 94 L 02/25/23 11:00 FiO2 Intake & Output 02/24/23 02/25/23 02/25/23 18:59 06:59 18:59 Intake Total 3380 2040 730 Output Total 590 600 150 Balance 2790 1440 580 Weight 115 kg Intake: IV 3280 2040 730 0.9 NACL bolus 1000 Piperacillin-Tazobactam 3 100 100 100 .375 gm In Sodium Chloride 0.9% 100 ml @ 25 mls/hr IVPB Q8HR [facility] Rx# :[id number] Potassium Chloride 10 meq 100 In Water For Injection 1 100ml.bag @ 100 mls/hr IVPB Q1H [facility] Rx#: [id number] Sodium Chloride 0.9% 1, 1430 1690 260 000 ml @ 130 mls/hr IV . Q7H42M [facility] Rx#:[id number] acyclovir 500 250 270 ampicillin 200 rocephen 50 Intake, IV Titration 100 Amount Ampicillin 2,000 mg In 100 Sodium Chloride 0.9% 100 ml @ 200 mls/hr IVPB Q4HR [facility] Rx#:[id number] Output: Urine 590 600 150 Other: Voiding Method Indwelling Catheter Indwelling Catheter Indwelling Catheter - Exam GENERAL EXAM: ((obtunted/encephalopathic, opens eyes to deep painful stimuli but does not follow any instructions. HEAD: Normocephalic and atraumatic EYES: Normal reaction of pupils, equal size. NOSE: Clear with pink turbinates. THROAT: No erythema or exudates. NECK: No masses, no JVD. CHEST: No chest wall deformity. LUNGS: Equal air entry with no crackles, wheeze, rhonchi or dullness. CVS: S1 and S2 normal with no audible murmur, regular rhythm. No extra heart sounds ABDOMEN: Obese soft nontender no megaly no rebound no guarding SPINE: No scoliosis or deformity SKIN: No rashes CENTRAL NERVOUS SYSTEM: Remains obtunted and encephalopathic, does not follow any instructions, opens eyes to deep painful stimuli EXTREMITIES: There is no peripheral edema, clubbing, or cyanosis. Peripheral pulses are intact. - Labs CBC & Chem 7: 02/25/23 05:19 02/25/23 05:19 Labs: Abnormal Lab Results - Last 24 Hours (Table) 02/24/23 02/25/23 02/25/23 Range/Units 11:10 05:19 05:19 WBC (3.8-10.6) k/uL RBC (4.30-5.90) m/uL Hct (39.0-53.0) % Plt Count (150-450) k/uL Neutrophils # (1.3-7.7) k/uL Chloride 112 H (98-107) mmol/L Carbon Dioxide 20 L (22-30) mmol/L BUN 36 H (9-20) mg/dL Calcium 7.3 L (8.4-10.2) mg/dL Total Bilirubin 1.5 H (0.2-1.3) mg/dL AST 340 H (17-59) U/L ALT 82 H (4-49) U/L C-Reactive Protein 1.7 H (<1.0) mg/dL Total Protein 5.4 L (6.3-8.2) g/dL Albumin 2.7 L (3.5-5.0) g/dL Procalcitonin 0.31 H (0.02-0.09) ng/mL CSF RBC 358 H (0-10) u/L CSF Total Protein 86 H (12-60) mg/dL 02/25/23 Range/Units 05:19 WBC 15.1 H (3.8-10.6) k/uL RBC 3.87 L (4.30-5.90) m/uL Hct 37.4 L (39.0-53.0) % Plt Count 94 L (150-450) k/uL Neutrophils # 12.5 H (1.3-7.7) k/uL Chloride (98-107) mmol/L Carbon Dioxide (22-30) mmol/L BUN (9-20) mg/dL Calcium (8.4-10.2) mg/dL Total Bilirubin (0.2-1.3) mg/dL AST (17-59) U/L ALT (4-49) U/L C-Reactive Protein (<1.0) mg/dL Total Protein (6.3-8.2) g/dL Albumin (3.5-5.0) g/dL Procalcitonin (0.02-0.09) ng/mL CSF RBC (0-10) u/L CSF Total Protein (12-60) mg/dL Microbiology - Last 24 Hours (Table) 02/23/23 22:00 Urine Culture - Final Urine,Catheterized 02/24/23 11:10 CSF Gram Stain - Preliminary Cerebral Spinal Fluid 02/23/23 12:15 Blood Culture - Preliminary Blood 02/23/23 12:30 Blood Culture - Preliminary Blood Assessment and Plan Assessment: Impression: Suspect sepsis, exact source is not clear, 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 Altered mental status, further investigation is pending. Acute febrile illness and sepsis, no obvious infectious process identified yet Leukocytosis, doubt pneumonia chest x-ray did not point to pneumonia plus his clinical history did not point to pneumonia Acute rhabdomyolysis, significantly elevated CPK, the plan is to continue fluids and monitor renal profile on a daily basis Elevated LFTs, viral studies are pending, ultrasound showed hepatomegaly Elevated troponins, possibly related to supply/demand mismatch, this was addressed by cardiology and not recommending any further workup Recommendation: Continue antibiotics as per infectious disease however the treatment was the escalated down significantly since there is no evidence of bacterial meningitis Continue neurological workup as per neurology on the case. Continue to monitor for possible seizures although his EEG showed no evidence of seizure focus Continue to check on blood cultures and other cultures which were sent including the CSF cultures Continue hydration, monitor renal profile and monitor CPK Continue GI and DVT prophylaxis Updated his family at bedside on his condition yesterday We will continue to follow. Time with Patient: Less than 30
[2023-02-25 13:07] LABS: Glucose,Whole Blood 87 mg/dL (70-110)
[2023-02-25] MEDS ORDERED: FUROSEMIDE 10 MG/ML 4 ML VIAL IV STA (16:02)
[2023-02-25 18:18] LABS: Glucose,Whole Blood 92 mg/dL (70-110)
[2023-02-25 21:45] LABS: Hepatitis A Antibody IgM Nonreactive; Hepatitis B Core IgM Nonreactive; Hepatitis B Surface Antigen Nonreactive; Hepatitis C IgG Antibody Nonreactive
[2023-02-26] MEDS: PIPERACILLIN-TAZOBACTAM 3.375 GM in SODIUM CHLORIDE 0.9% 100 ML IVPB SCH ×3 (00:49→16:25)
[2023-02-26 01:42] LABS: Glucose,Whole Blood 102 mg/dL (70-110)
[2023-02-26] MEDS: SODIUM CHLORIDE 0.9% 1,000 ML IV SCH ×2 (02:35→07:58)
[2023-02-26] MEDS: ACYCLOVIR SODIUM 1,000 MG in SODIUM CHLORIDE 0.9% 250 ML IVPB SCH ×2 (02:35→09:59)
[2023-02-26] MEDS: DEXMEDETOMIDINE/0.9% NACL(PMX) 400 MCG in EMPTY BAG 1 BAG IV SCH (02:37)
[2023-02-26] MEDS: HYDROmorphone 1 MG/ML 1 ML SYRINGE IVP PRN ×3 (03:11→16:25)
[2023-02-26 06:57] LABS: Basophils # (A) 0.1 k/uL (0-0.2); Basophils % (A) 0 %; Eosinophils # (A) 0.1 k/uL (0-0.7); Eosinophils % (A) 0 %; HCT 44.4 % (39.0-53.0); Lymphocytes % (A) 5 %; MCH 32.9 pg (25.0-35.0); MCHC 33.8 g/dL (31.0-37.0); MCV 97.3 fL (80.0-100.0); Mean Platelet Volume 10.4; Monocytes # (A) 1.1 k/uL (0-1.0); Monocytes % (A) 6 %; Neutrophils # (A) 15.9 k/uL (1.3-7.7); Neutrophils % (A) 86 %; RBC 4.56 m/uL (4.30-5.90); RDW 12.4 % (11.5-15.5); WBC 18.4 k/uL (3.8-10.6)
[2023-02-26 07:04] LABS: Platelet Count 85 k/uL (150-450)
[2023-02-26 07:17] LABS: African American GFR (CKD) >90 (>60 ml/min/1.73 sqM); Anion Gap 10 mmol/L; Blood Urea Nitrogen 29 mg/dL (9-20); Calcium 7.5 mg/dL (8.4-10.2); Carbon Dioxide 16 mmol/L (22-30); Chloride 114 mmol/L (98-107); Glucose 84 mg/dL (74-99); Non-African American GFR(CKD) 82 (>60 ml/min/1.73 sqM); Potassium 4.4 mmol/L (3.5-5.1); Sodium 140 mmol/L (137-145)
--- NOTE | 2023-02-26 07:35 | XR ---
EXAMINATION TYPE: XR chest 1V portable DATE OF EXAM: 02/26/2023 HISTORY: Shortness of breath. COMPARISON: 02/24/2023 TECHNIQUE: Single view of the chest is submitted. FINDINGS: Demonstrated are scattered senescent parenchymal change. Vague nonspecific interstitial prominence is seen throughout both lung myers. Increased density left medial lung base may reflect atelectasis or developing infiltrate. The heart is stable. Hilar and mediastinal structures are within normal limits. Degenerative changes are seen of the dorsal spine. IMPRESSION: 1. Vague nonspecific interstitial prominence is seen throughout both lung myers. Increased density left medial lung base may reflect atelectasis or developing infiltrate.
[2023-02-26 08:14] LABS: Creatine Kinase 12307 U/L (55-170)
--- NOTE | 2023-02-26 08:49 | P.PN ---
Subjective Progress Note Date: 02/26/23 Principal diagnosis: Altered mental status This is a 77-year-old male who presented to the ER with concerns of altered mental status. His had found him on the ground prior to coming to the ER. He was placed in ICU, has had tachycardia with hypotension. He also continues t o have intermittent fevers. Workup for bacterial meningitis was negative. EEG was negative for seizure activity. Further workup still in progress. Patient still has a white count today. He is seen laying in bed in the ICU this morning, in no acute distress. Objective - Vital Signs Vital signs: Vital Signs Temp 100.9 F H 02/26/23 08:00 Pulse 86 02/26/23 08:00 Resp 24 02/26/23 08:00 BP 142/68 02/26/23 08:00 Pulse Ox 99 02/26/23 08:00 FiO2 Intake & Output 02/25/23 02/26/23 02/26/23 18:59 06:59 18:59 Intake Total 1640 2030 360 Output Total 1150 1925 150 Balance 490 105 210 Weight 106.9 kg Intake: IV 1640 1280 230 Piperacillin-Tazobactam 3 100 100 100 .375 gm In Sodium Chloride 0.9% 100 ml @ 25 mls/hr IVPB Q8HR [facility] Rx# :[id number] Potassium Chloride 10 meq 100 In Water For Injection 1 100ml.bag @ 100 mls/hr IVPB Q1H [facility] Rx#: [id number] Sodium Chloride 0.9% 1, 1170 910 130 000 ml @ 130 mls/hr IV . Q7H42M [facility] Rx#:[id number] acyclovir 270 270 Intake, IV Titration 750 130 Amount ACETAMINOPHEN IV (For NPO 100 ) 1,000 mg In Empty Bag 1 bag @ 400 mls/hr IVPB Q6HR [facility]N Rx#:[id number] Sodium Chloride 0.9% 1, 650 130 000 ml @ 130 mls/hr IV . Q7H42M [facility] Rx#:[id number] Output: Urine 1150 1925 150 Other: Voiding Method Indwelling Catheter Indwelling Catheter Indwelling Catheter - Constitutional General appearance: Present: no acute distress - Neck Neck: Absent: lymphadenopathy, rigidity - Respiratory Respiratory: bilateral: diminished - Cardiovascular Rhythm: regular Heart sounds: normal: S1, S2 - Gastrointestinal General gastrointestinal: Present: soft. Absent: tenderness - Integumentary Integumentary: Present: normal, normal turgor - Labs CBC & Chem 7: 02/26/23 06:28 02/26/23 06:28 Labs: Abnormal Lab Results - Last 24 Hours (Table) 02/25/23 02/26/23 02/26/23 Range/Units 05:19 06:28 06:28 WBC 18.4 H (3.8-10.6) k/uL Plt Count 85 L (150-450) k/uL Neutrophils # 15.9 H (1.3-7.7) k/uL Monocytes # 1.1 H (0-1.0) k/uL Chloride 114 H (98-107) mmol/L Carbon Dioxide 16 L (22-30) mmol/L BUN 29 H (9-20) mg/dL Calcium 7.5 L (8.4-10.2) mg/dL Creatine Kinase 18987 H* (55-170) U/L Procalcitonin 0.31 H (0.02-0.09) ng/mL Microbiology - Last 24 Hours (Table) 02/23/23 12:15 Blood Culture - Preliminary Blood 02/23/23 12:30 Blood Culture - Preliminary Blood 02/24/23 11:10 CSF Gram Stain - Preliminary Cerebral Spinal Fluid CSF Culture - Preliminary 02/23/23 22:00 Urine Culture - Final Urine,Catheterized Assessment and Plan (1) Altered mental status Current Visit: Yes Status: Acute Code(s): R41.82 - ALTERED MENTAL STATUS, UNSPECIFIED SNOMED Code(s): 842676089 (2) Pneumonia Current Visit: Yes Status: Acute Code(s): J18.9 - PNEUMONIA, UNSPECIFIED ORGANISM SNOMED Code(s): 623618918 (3) Septic shock Current Visit: Yes Status: Acute Code(s): A41.9 - SEPSIS, UNSPECIFIED ORGANISM; R65.21 - SEVERE SEPSIS WITH SEPTIC SHOCK SNOMED Code(s): 54994840 Plan: Appreciate multiple consultants. Await results from further workup. Patient seen and evaluated by nurse practitioner, physician in agreement with plan
[2023-02-26 09:25] LABS: ABG PCO2 37 mmHg (35-45); Allen Test Performed? Yes
[2023-02-26 09:42] LABS: ABG PH 7.36 (7.35-7.45)
[2023-02-26 09:43] LABS: ABG Base Excess -4.5 mmol/L; ABG HCO3 21 mmol/L (21-25); ABG Oxygen Saturation 96.1 % (94-97); ABG PO2 82 mmHg (83-108); ABG TCO2 22 mmol/L (19-24)
[2023-02-26] MEDS ORDERED: SODIUM BICARB 8.4% 50 ML SYR (1 MEQ/ML) IV STA (09:54)
--- NOTE | 2023-02-26 10:01 | P.PN ---
Subjective Progress Note Date: 02/25/23 Principal diagnosis: Fever Patient is a 77-year-old male presenting to the hospital y after the patient was found to be unresponsive by the , patient has been febrile initial testing negative including LP which was only mildly elevated protein. On today's evaluation that is 02/25/2023, the patient overall fever pattern has improved, the patient is still lethargic however he did responded to his name eye opening his eyes no further history could be obtained from the patient patient not requiring any pressor support is currently on ventilator physical oxygen no vomiting or diarrhea has been reported patient white count was slight of 15.1 creatinine is 1.17 pro calcitonin 0.31, urine is negative urine drug screen was negative influenza and RSV covid negative, urine for Legionella antigen negative Objective - Vital Signs Vital signs: Vital Signs Temp 100.9 F H 02/25/23 10:00 Pulse 70 02/25/23 10:00 Resp 26 H 02/25/23 10:00 BP 102/56 02/25/23 10:00 Pulse Ox 98 02/25/23 10:00 FiO2 Intake & Output 02/24/23 02/25/23 02/25/23 18:59 06:59 18:59 Intake Total 3380 2040 730 Output Total 590 600 150 Balance 2790 1440 580 Weight 115 kg Intake: IV 3280 2040 730 0.9 NACL bolus 1000 Piperacillin-Tazobactam 3 100 100 100 .375 gm In Sodium Chloride 0.9% 100 ml @ 25 mls/hr IVPB Q8HR [facility] Rx# :[id number] Potassium Chloride 10 meq 100 In Water For Injection 1 100ml.bag @ 100 mls/hr IVPB Q1H [facility] Rx#: [id number] Sodium Chloride 0.9% 1, 1430 1690 260 000 ml @ 130 mls/hr IV . Q7H42M [facility] Rx#:[id number] acyclovir 500 250 270 ampicillin 200 rocephen 50 Intake, IV Titration 100 Amount Ampicillin 2,000 mg In 100 Sodium Chloride 0.9% 100 ml @ 200 mls/hr IVPB Q4HR [facility] Rx#:[id number] Output: Urine 590 600 150 Other: Voiding Method Indwelling Catheter Indwelling Catheter - Exam GENERAL DESCRIPTION: An elderly male lying in bed in no distress RESPIRATORY SYSTEM: Unlabored breathing , coarse breath sounds bilaterally HEART: S1 S2 regular rate and rhythm , ABDOMEN: Soft , no tenderness EXTREMITIES: No edema feet - Labs CBC & Chem 7: 02/26/23 06:28 02/26/23 06:28 Labs: Abnormal Lab Results - Last 24 Hours (Table) 02/24/23 02/25/23 02/25/23 Range/Units 11:10 05:19 05:19 WBC (3.8-10.6) k/uL RBC (4.30-5.90) m/uL Hct (39.0-53.0) % Plt Count (150-450) k/uL Neutrophils # (1.3-7.7) k/uL Chloride 112 H (98-107) mmol/L Carbon Dioxide 20 L (22-30) mmol/L BUN 36 H (9-20) mg/dL Calcium 7.3 L (8.4-10.2) mg/dL Total Bilirubin 1.5 H (0.2-1.3) mg/dL AST 340 H (17-59) U/L ALT 82 H (4-49) U/L C-Reactive Protein 1.7 H (<1.0) mg/dL Total Protein 5.4 L (6.3-8.2) g/dL Albumin 2.7 L (3.5-5.0) g/dL Procalcitonin 0.31 H (0.02-0.09) ng/mL CSF RBC 358 H (0-10) u/L CSF Total Protein 86 H (12-60) mg/dL 02/25/23 Range/Units 05:19 WBC 15.1 H (3.8-10.6) k/uL RBC 3.87 L (4.30-5.90) m/uL Hct 37.4 L (39.0-53.0) % Plt Count 94 L (150-450) k/uL Neutrophils # 12.5 H (1.3-7.7) k/uL Chloride (98-107) mmol/L Carbon Dioxide (22-30) mmol/L BUN (9-20) mg/dL Calcium (8.4-10.2) mg/dL Total Bilirubin (0.2-1.3) mg/dL AST (17-59) U/L ALT (4-49) U/L C-Reactive Protein (<1.0) mg/dL Total Protein (6.3-8.2) g/dL Albumin (3.5-5.0) g/dL Procalcitonin (0.02-0.09) ng/mL CSF RBC (0-10) u/L CSF Total Protein (12-60) mg/dL Microbiology - Last 24 Hours (Table) 02/23/23 22:00 Urine Culture - Final Urine,Catheterized 02/24/23 11:10 CSF Gram Stain - Preliminary Cerebral Spinal Fluid 02/23/23 12:15 Blood Culture - Preliminary Blood 02/23/23 12:30 Blood Culture - Preliminary Blood Assessment and Plan (1) Fever Current Visit: Yes Status: Acute Code(s): R50.9 - FEVER, UNSPECIFIED SNOMED Code(s): 765871936 (2) Pneumonia Current Visit: Yes Status: Acute Code(s): J18.9 - PNEUMONIA, UNSPECIFIED ORGANISM SNOMED Code(s): 936785430 Plan: 1patient with SIRS in this patient with a fever elevated white count t achycardia with significant mental status changes high clinical suspicious for possible encephalitis/meningitis however the patient LP is relatively clear only mildly elevated protein of 86 patient chest x-ray negative for pneumonia urine has been negative mildly elevated liver enzymes and the patient did have evidence of rhabdomyolysis as the patient has been on the floor for more than 12 hours however no evidence of any bruising or injury has been noticed abdominal soft on clinical examination 2- ultrasound of the abdomen sludge versus artifact in the gallbladder no other abnormality noticed 3- hepatitis panel is negative 4Patient to continue with acyclovir and Zosyn while waiting for the work-up to be completed Daughter at the bedside and multiple questions concerned were answered Dictation was produced using [employer] software. please excuse any grammatical, word or spelling errors. Time with Patient: Greater than 30
--- NOTE | 2023-02-26 11:46 | PN ---
PROGRESS NOTE SUBJECTIVE: A 77-year-old gentleman who is admitted to hospital with confusion and possible infection. This morning, he continues to be confused and encephalopathic. He seems little more agitated today and the blood pressures are elevated. OBJECTIVE: GENERAL: The patient has a BiPAP on. VITAL SIGNS: Heart rate is 78 beats per minute, blood pressure is 146/72, respiratory rate 18. CHEST: Reveals diminished air entry at the bases. HEART: Reveals first and second heart sounds. No gallop. LABORATORY DATA: Show a white cell count of 18, platelet count of 85. Potassium is 4.4, creatinine is 0.87. ASSESSMENT: 1. Elevated troponin secondary to the acute febrile illness. 2. Encephalopathy of unclear etiology. PLAN: We will continue with supportive care. PATTI / NAHID: [id number] /
--- NOTE | 2023-02-26 11:52 | P.PN ---
Subjective Progress Note Date: 02/26/23 Principal diagnosis: Sepsis and mental status change I am seeing this patient in new consultation today 02/24/2023 after the patient presented to the ER yesterday evening with concerns of altered mental status. Patient is a 77-year-old white male with a limited past medical history. Apparently, the patient's found him down on the ground early yesterday morning confused. His last known well time was the night prior. Nonenhanced brain CT on arrival shows age-related atrophic and chronic small vessel ischemia without any obvious acute cranial process. Initial chest x-ray on arrival showed fullness around the right hilum likely related patient rotation. Underlying infiltrate or mass not excluded. CBC shows leukocytosis with a WBC count of 16, hemoglobin 13.5, hematocrit 39.1, platelets 109,000. BMP shows sodium 136, potassium 3.7, chloride 110, serum bicarb 17, BUN 36, creatinine 1.22, glucose 102. LFTs are mildly elevated. Troponins are 1.66 and 1.9. Ur inalysis not particularly concerning for UTI. Negative for influenza, RSV, COVID-19. Patient was originally admitted to the floor, and was transferred to the ICU last night for tachycardia and hypotension. Yesterday, he was given a total of 2.5 L normal saline bolus. On my evaluation, the patient is lying in bed, extremities are rigid, he is febrile with a t-max of 103 F. He is on 2 L/m nasal cannula, oxygenating around 94%. He is disoriented and unable to provide any meaningful information. He mostly mumbles. I did speak to the patient's daughter, who denies any recent sinus, ear, or pulmonary infections. I am concerned for possible encephalitis or meningitis. I spoke with neurology last night, and updated them on the patient. There is an EEG pending for the morning. Patient is empirically covered with combination of ampicillin, vancomycin, and Rocephin. Infectious disease consult was also placed. Heart rhythm is currently normal sinus on bedside monitor. Blood pressure is normotensive. Normal saline is infusing at 130 ML's per hour. No need for vasopressors at this time. Patient will need a thorough neurological workup. He is being monitored in the intensive care unit in the meantime. Patient was seen and examined today on 02/25/2023, remains in the ICU, spiking temperatures intermittently, he had a T-max of 102.9. Spinal fluid workup so far is negative for bacterial meningitis. However viral meningitis/encephalitis is not entirely ruled out, and workup is still in progress. In the meantime the patient is being followed by many consultants including infectious disease and urology. Apparently his EEG was negative for seizure activity. Labs today showed leukocytosis with WBC of 15.1 hemoglobin is normal electrolytes are normal bicarb is 20 creatinine is 1.7, improved compared to his baseline on admission liver enzymes remain at the time elevated ammonia level is normal. Drug screen was negative. CPK was elevated on admission, no CPK noted today. His pro-calcitonin level 0.31. Ultrasound of the abdomen and pelvis showed sludge in the gallbladder, it also showed hepatomegaly, otherwise limited exam Reevaluated today on 02/26/70, remains in the ICU on 3 L nasal cannula. Patient continues to have poor mental status, seems to be obtunded, at times he may follow simple instructions like wiggling toes but most of the time he doesn't. Patient is snoring and is having episodes of apnea hence ABG was done and showed a pO2 of 82 pCO2 37 pH of 7.35. Continues to have relatively high CPK but improving 35619, renal functioning continues to be about the same. Patient has a low bicarb of 16, and I'm recommending 1 amp of bicarb to be given. So far all the diagnostic workup is nondiagnostic the West Nile virus workup is still pending. Patient did have elevated WBC count elevated pro calcitonin. Mental status is not showing any improvement whatsoever. Neurology is following. Chest x-ray continues to show left basilar atelectasis, strongly doubt pneumonia. Patient remains empirically on antibiotics. He is on Zosyn. Remains on IV fluid at 150 ML per hour in the form of 1.9 normal saline. Objective - Vital Signs Vital signs: Vital Signs Temp 100.9 F H 02/26/23 08:00 Pulse 78 02/26/23 09:00 Resp 18 02/26/23 09:00 BP 146/70 02/26/23 09:00 Pulse Ox 97 02/26/23 09:00 FiO2 28 02/26/23 09:35 Intake & Output 02/25/23 02/26/23 02/26/23 18:59 06:59 18:59 Intake Total 1640 2030 360 Output Total 1150 1925 150 Balance 490 105 210 Weight 106.9 kg Intake: IV 1640 1280 230 Piperacillin-Tazobactam 3 100 100 100 .375 gm In Sodium Chloride 0.9% 100 ml @ 25 mls/hr IVPB Q8HR [facility] Rx# :[id number] Potassium Chloride 10 meq 100 In Water For Injection 1 100ml.bag @ 100 mls/hr IVPB Q1H [facility] Rx#: [id number] Sodium Chloride 0.9% 1, 1170 910 130 000 ml @ 130 mls/hr IV . Q7H42M [facility] Rx#:[id number] acyclovir 270 270 Intake, IV Titration 750 130 Amount ACETAMINOPHEN IV (For NPO 100 ) 1,000 mg In Empty Bag 1 bag @ 400 mls/hr IVPB Q6HR [facility] Rx#:[id number] Sodium Chloride 0.9% 1, 650 130 000 ml @ 130 mls/hr IV . Q7H42M [facility] Rx#:[id number] Output: Urine 1150 1925 150 Other: Voiding Method Indwelling Catheter Indwelling Catheter Indwelling Catheter - Exam GENERAL EXAM: ((obtunted/encephalopathic, opens eyes to deep painful stimuli , otherwise no responses occasionally may wiggle his toes were requested. Patient is noted to have snoring episodes and minimal apnea episodes for which I recommended BiPAP HEAD: Normocephalic and atraumatic EYES: Normal reaction of pupils, equal size. NOSE: Clear with pink turbinates. THROAT: No erythema or exudates. NECK: No masses, no JVD. CHEST: No chest wall deformity. LUNGS: Equal air entry with no crackles, wheeze, rhonchi or dullness. CVS: S1 and S2 normal with no audible murmur, regular rhythm. No extra heart sounds ABDOMEN: Obese soft nontender no megaly no rebound no guarding SPINE: No scoliosis or deformity SKIN: No rashes CENTRAL NERVOUS SYSTEM: Remains obtunted and encephalopathic EXTREMITIES: There is no peripheral edema, clubbing, or cyanosis. Peripheral pulses are intact. - Labs CBC & Chem 7: 02/26/23 06:28 02/26/23 06:28 Labs: Abnormal Lab Results - Last 24 Hours (Table) 02/26/23 02/26/23 02/26/23 Range/Units 06:28 06:28 09:18 WBC 18.4 H (3.8-10.6) k/uL Plt Count 85 L (150-450) k/uL Neutrophils # 15.9 H (1.3-7.7) k/uL Monocytes # 1.1 H (0-1.0) k/uL ABG pO2 82 L (83-108) mmHg Chloride 114 H (98-107) mmol/L Carbon Dioxide 16 L (22-30) mmol/L BUN 29 H (9-20) mg/dL Calcium 7.5 L (8.4-10.2) mg/dL Creatine Kinase 35357 H* (55-170) U/L Microbiology - Last 24 Hours (Table) 02/23/23 12:15 Blood Culture - Preliminary Blood 02/23/23 12:30 Blood Culture - Preliminary Blood 02/24/23 11:10 CSF Gram Stain - Preliminary Cerebral Spinal Fluid CSF Culture - Preliminary 02/23/23 22:00 Urine Culture - Final Urine,Catheterized Assessment and Plan Assessment: Impression: Suspect sepsis, exact source is not clear, could still be [employer] related, possible viral encephalitis, further workup is pending. Altered mental status, further investigation is pending. Acute febrile illness and sepsis, no obvious infectious process identified yet Leukocytosis, doubt pneumonia chest x-ray did not point to pneumonia , minimal atelectasis left base Acute rhabdomyolysis, significantly elevated CPK, the plan is to continue fluids and monitor renal profile on a daily basis Elevated LFTs, viral studies are pending, ultrasound showed hepatomegaly Elevated troponins, possibly related to supply/demand mismatch, this was addressed by cardiology and not recommending any further workup Recommendation: Continue antibiotics empirically. Continue neurological workup as per neurology on the case. Continue to monitor for possible seizures although his EEG showed no evidence of seizure focus Continue to check on blood cultures and other cultures which were sent including the CSF cultures Continue hydration, monitor renal profile and monitor CPK Continue GI and DVT prophylaxis Workup for potential West Nile virus encephalitis is pending. We will continue to follow. Time with Patient: Less than 30
--- NOTE | 2023-02-26 14:04 | CDI ---
Documentation Clarification Form Date: 02/26/2023 01:30:47 PM From: Brii Issa RN, CCDS Admit Date: 02/23/2023 03:21:00 PM Patient Name: Michele Avelar Visit Number: [id number] Discharge Date: ATTENTION: The Clinical Documentation Specialists (CDI) and [facility] Coding Staff appreciate your assistance in clarifying documentation. Please respond to the clarification below the line at the bottom and electronically sign. The CDI & [facility] Coding staff will review the response and follow-up if needed. Please note: Queries are made part of the Legal Health Record. If you have any questions, please contact the author of this message via ITS. Dr. Pranay Holman Rhabdomyolysis is documented in the pulmonary consult and subsequent progress notes. Additional clarification regarding the type of rhabdomyolysis is requested. History/Risk Factors: no reported history Clinical Indicators: 77-year-old male presenting to the emergency department with concerns for change in mental status. Patient was found on the ground reported evidence of rhabdomyolysis as the patient has been on the floor for more than 12 hours per ID progress notes. 02/23 CPK 1588 02/24 CPK 28780 02/26 CPK 13629 Treatment: ICU/Telemetry monitoring .9%NS 1,000 ML IV Bolus X 2, 650 ML X1, 500 ML X1 Then run at 130 ML/HR 02/23- 02/26 Please clarify the type of rhabdomyolysis, if known: [ ] Traumatic rhabdomyolysis due to fall [ x] Traumatic rhabdomyolysis due to prolonged immobility [ ] Non traumatic rhabdomyolysis due to infection (please specify) [ ] Other, please specify [ ] Unable to Determine (Template Last Revised: August 2020) MTDD
--- NOTE | 2023-02-26 15:26 | P.PN ---
Subjective Progress Note Date: 02/26/23 Patient was seen for a follow-up. Patient continues to be severely encephalopathic. He is still nonverbal. He does open his eyes, makes eye contact, but does not follow directions. On asking the patient if he has any headache, patient would not answer even with nodding. No seizure-like activity noticed. Patient's son and patient were present today. They mentioned that patient does work in the yard, cuts his own grass, and on the Day weekend, the event to watch the grandson's football game. He regularly goes out for a walk with his . He may have been exposed to mosquitoes. Patient was fine until Thursday when he stopped talking and presented to the ER. Objective - Vital Signs Vital signs: Vital Signs Temp 100.8 F H 02/26/23 12:00 Pulse 73 02/26/23 12:00 Resp 22 02/26/23 12:00 BP 137/61 02/26/23 12:00 Pulse Ox 97 02/26/23 12:00 FiO2 28 02/26/23 10:00 Intake & Output 02/25/23 02/26/23 02/26/23 18:59 06:59 18:59 Intake Total 1640 2030 1130 Output Total 1150 1925 325 Balance 490 105 805 Weight 106.9 kg Intake: IV 1640 1280 1000 Piperacillin-Tazobactam 3 100 100 100 .375 gm In Sodium Chloride 0.9% 100 ml @ 25 mls/hr IVPB Q8HR [facility] Rx# :[id number] Potassium Chloride 10 meq 100 In Water For Injection 1 100ml.bag @ 100 mls/hr IVPB Q1H [facility] Rx#: [id number] Sodium Chloride 0.9% 1, 1170 910 650 000 ml @ 130 mls/hr IV . Q7H42M [facility] Rx#:[id number] acyclovir 270 270 250 Intake, IV Titration 750 130 Amount ACETAMINOPHEN IV (For NPO 100 ) 1,000 mg In Empty Bag 1 bag @ 400 mls/hr IVPB Q6HR [facility] Rx#:[id number] Sodium Chloride 0.9% 1, 650 130 000 ml @ 130 mls/hr IV . Q7H42M [facility] Rx#:[id number] Output: Urine 1150 1925 325 Other: Voiding Method Indwelling Catheter Indwelling Catheter Indwelling Catheter - Exam Patient is obviously encephalopathic. Pupils are equal, round and reacting. Visual myers could not be tested. Face is symmetric. Patient did not cooperate with muscle strength testing. Patient's tone has significantly incre ased in the arms and legs all over. On any movement of the extremities produces significant pain. Patient has probable bilateral Babinski. Occasional tremor was noted of the right hand. - Labs CBC & Chem 7: 02/27/23 06:28 02/27/23 06:28 Labs: Abnormal Lab Results - Last 24 Hours (Table) 02/26/23 02/26/23 02/26/23 Range/Units 06:28 06:28 09:18 WBC 18.4 H (3.8-10.6) k/uL Plt Count 85 L (150-450) k/uL Neutrophils # 15.9 H (1.3-7.7) k/uL Monocytes # 1.1 H (0-1.0) k/uL ABG pO2 82 L (83-108) mmHg Chloride 114 H (98-107) mmol/L Carbon Dioxide 16 L (22-30) mmol/L BUN 29 H (9-20) mg/dL Calcium 7.5 L (8.4-10.2) mg/dL Creatine Kinase 94730 H* (55-170) U/L Microbiology - Last 24 Hours (Table) 02/25/23 05:19 Blood Culture - Preliminary Blood 02/23/23 12:15 Blood Culture - Preliminary Blood 02/23/23 12:30 Blood Culture - Preliminary Blood 02/24/23 11:10 CSF Gram Stain - Preliminary Cerebral Spinal Fluid CSF Culture - Preliminary Assessment and Plan Assessment: * Altered mental status, acute onset with high fevers, and severe encephalopathy, nuchal and generalized rigidity and some tremulousness. Rule out encephalitis, meningitis. Concerning for West Nile virus. * Acute rhabdomyolysis * Elevated cardiac enzymes * History of bilateral knee replacement. Plan: * CSF performed 02/24/2023 was colorless and clear. CSF glucose 52, protein 86 (12-60). WBC count 4, RBCs 358. Comprehensive viral detection negative. * Patient is currently on Zosyn for possible pneumonia. We will discontinue acyclovir because HSV PCR negative. ID on board. * Initial EEG revealed background slowing and disorganization of mild degree sug gestive of encephalopathy. There is no epileptiform activity. * Continue Keppra 750 mg twice a day for now. Repeat EEG in the morning. * Await West Nile virus serology from CSF. * Cardiology on board for elevated cardiac enzymes and bradycardia/tachycardia. * Repeat CPK improved 12,307. Follow the trend. * We will check MRI of the brain with and without contrast. * Discussed with patient's son and patient's in detail.
[2023-02-26] MEDS: levETIRAcetam IV 500 MG/5 ML VIAL IVP SCH (21:28)
[2023-02-27] LABS: Glucose,Whole Blood 106 mg/dL (70-110)
[2023-02-27] MEDS: PIPERACILLIN-TAZOBACTAM 3.375 GM in SODIUM CHLORIDE 0.9% 100 ML IVPB SCH ×4 (00:17→23:47)
[2023-02-27] MEDS: HYDROmorphone 1 MG/ML 1 ML SYRINGE IVP PRN ×4 (00:18→20:26)
[2023-02-27] MEDS: DEXMEDETOMIDINE/0.9% NACL(PMX) 400 MCG in EMPTY BAG 1 BAG IV SCH ×2 (00:23→13:59)
[2023-02-27] MEDS: SODIUM CHLORIDE 0.9% 1,000 ML IV SCH ×4 (00:23→16:25)
[2023-02-27 06:26] LABS: Glucose,Whole Blood 123 mg/dL (70-110)
[2023-02-27 06:42] LABS: HGB 14.4 gm/dL (13.0-17.5); MCH 32.7 pg (25.0-35.0); MCHC 33.5 g/dL (31.0-37.0); MCV 97.6 fL (80.0-100.0); Mean Platelet Volume 9.6; RDW 12.1 % (11.5-15.5); WBC 13.8 k/uL (3.8-10.6)
[2023-02-27 06:59] LABS: Platelet Count 92 k/uL (150-450)
[2023-02-27 07:04] LABS: ALT 93 U/L (4-49); African American GFR (CKD) >90 (>60 ml/min/1.73 sqM); Anion Gap 10 mmol/L; Blood Urea Nitrogen 26 mg/dL (9-20); Calcium 7.6 mg/dL (8.4-10.2); Carbon Dioxide 16 mmol/L (22-30); Chloride 118 mmol/L (98-107); Glucose 97 mg/dL (74-99); Non-African American GFR(CKD) >90 (>60 ml/min/1.73 sqM); Sodium 144 mmol/L (137-145); Total Bilirubin 1.9 mg/dL (0.2-1.3)
[2023-02-27 07:06] LABS: AST 262 U/L (17-59); Albumin 2.8 g/dL (3.5-5.0); Alkaline Phosphatase 41 U/L (38-126); Potassium 4.3 mmol/L (3.5-5.1); Total Protein 5.9 g/dL (6.3-8.2)
--- NOTE | 2023-02-27 08:54 | P.PN ---
Subjective Principal diagnosis: Altered mental status This is 77-year-old white male with no significant past medical history came in and septic shock and questionable pneumonia. He was significant tachycardia with hypotension and was placed in ICU for observation. He continues to have significant mental status changes. Question febrile seizure element. Temperature is improved IV Tylenol has been administered. Appreciate multiple consultants input. He was able to follow commands of squeezing is left-handed and seemed to acknowledge made today. Objective - Vital Signs Vital signs: Vital Signs Temp 97.7 F 02/27/23 04:00 Pulse 64 02/27/23 07:00 Resp 19 02/27/23 07:00 BP 115/92 02/27/23 07:00 Pulse Ox 94 L 02/27/23 08:40 FiO2 28 02/26/23 10:00 Intake & Output 02/26/23 02/27/23 02/27/23 18:59 06:59 18:59 Intake Total 2009 1480 130 Output Total 675 905 50 Balance 1335 575 80 Intake: IV 1880 130 Piperacillin-Tazobactam 3 200 .375 gm In Sodium Chloride 0.9% 100 ml @ 25 mls/hr IVPB Q8HR [facility] Rx# :[id number] Sodium Chloride 0.9% 1, 1430 130 000 ml @ 130 mls/hr IV . Q7H42M [facility] Rx#:[id number] acyclovir 250 Intake, IV Titration 130 1300 130 Amount Sodium Chloride 0.9% 1, 130 1300 130 000 ml @ 130 mls/hr IV . Q7H42M [facility] Rx#:[id number] Tube Feeding 50 Output: Urine 675 905 50 Other: Voiding Method Indwelling Catheter Indwelling Catheter - Constitutional General appearance: Absent: cooperative - Neck Neck: Absent: lymphadenopathy - Respiratory Respiratory: bilateral: diminished - Cardiovascular Rhythm: regular Heart sounds: normal: S1, S2 Abnormal Heart Sounds: Absent: S3 Gallop - Gastrointestinal General gastrointestinal: Present: soft. Absent: tenderness - Psychiatric Psychiatric: Absent: A&O x's 3 - Labs CBC & Chem 7: 02/27/23 06:28 02/27/23 06:28 Labs: Abnormal Lab Results - Last 24 Hours (Table) 02/26/23 02/27/23 02/27/23 Range/Units 09:18 06:24 06:28 WBC 13.8 H (3.8-10.6) k/uL Plt Count 92 L (150-450) k/uL ABG pO2 82 L (83-108) mmHg Chloride (98-107) mmol/L Carbon Dioxide (22-30) mmol/L BUN (9-20) mg/dL POC Glucose (mg/dL) 123 H (70-110) mg/dL Calcium (8.4-10.2) mg/dL Total Bilirubin (0.2-1.3) mg/dL AST (17-59) U/L ALT (4-49) U/L Total Protein (6.3-8.2) g/dL Albumin (3.5-5.0) g/dL 02/27/23 Range/Units 06:28 WBC (3.8-10.6) k/uL Plt Count (150-450) k/uL ABG pO2 (83-108) mmHg Chloride 118 H (98-107) mmol/L Carbon Dioxide 16 L (22-30) mmol/L BUN 26 H (9-20) mg/dL POC Glucose (mg/dL) (70-110) mg/dL Calcium 7.6 L (8.4-10.2) mg/dL Total Bilirubin 1.9 H (0.2-1.3) mg/dL AST 262 H (17-59) U/L ALT 93 H (4-49) U/L Total Protein 5.9 L (6.3-8.2) g/dL Albumin 2.8 L (3.5-5.0) g/dL Microbiology - Last 24 Hours (Table) 02/23/23 12:15 Blood Culture - Preliminary Blood 02/23/23 12:30 Blood Culture - Preliminary Blood 02/24/23 11:10 CSF Gram Stain - Preliminary Cerebral Spinal Fluid CSF Culture - Preliminary 02/25/23 05:19 Blood Culture - Preliminary Blood Assessment and Plan (1) Altered mental status Current Visit: Yes Status: Acute Code(s): R41.82 - ALTERED MENTAL STATUS, UNSPECIFIED SNOMED Code(s): 746995573 (2) Pneumonia Current Visit: Yes Status: Acute Code(s): J18.9 - PNEUMONIA, UNSPECIFIED ORGANISM SNOMED Code(s): 386715548 (3) Septic shock Current Visit: Yes Status: Acute Code(s): A41.9 - SEPSIS, UNSPECIFIED ORG ANISM; R65.21 - SEVERE SEPSIS WITH SEPTIC SHOCK SNOMED Code(s): 96314099 Plan: Fever control. Ativan to be given. IV Tylenol. Check CBC and CMP in a.m. Appreciate multiple consultants input. Cultures are pending. Appreciate ID input as well. Continue IV antibiotics.
[2023-02-27] MEDS: levETIRAcetam IV 500 MG/5 ML VIAL IVP SCH ×2 (09:36→20:25)
[2023-02-27 11:23] LABS: VDRL, Qualitative CSF Nonreactive (Nonreactive)
--- NOTE | 2023-02-27 12:38 | P.PN ---
Subjective Progress Note Date: 02/27/23 Principal diagnosis: Sepsis and mental status change I am seeing this patient in new consultation today 02/24/2023 after the patient presented to the ER yesterday evening with concerns of altered mental status. Patient is a 77-year-old white male with a limited past medical history. Apparently, the patient's found him down on the ground early yesterday morning confused. His last known well time was the night prior. Nonenhanced brain CT on arrival shows age-related atrophic and chronic small vessel ischemia without any obvious acute cranial process. Initial chest x-ray on arrival showed fullness around the right hilum likely related patient rotation. Underlying infiltrate or mass not excluded. CBC shows leukocytosis with a WBC count of 16, hemoglobin 13.5, hematocrit 39.1, platelets 109,000. BMP shows sodium 136, potassium 3.7, chloride 110, serum bicarb 17, BUN 36, creatinine 1.22, glucose 102. LFTs are mildly elevated. Troponins are 1.66 and 1.9. Ur inalysis not particularly concerning for UTI. Negative for influenza, RSV, COVID-19. Patient was originally admitted to the floor, and was transferred to the ICU last night for tachycardia and hypotension. Yesterday, he was given a total of 2.5 L normal saline bolus. On my evaluation, the patient is lying in bed, extremities are rigid, he is febrile with a t-max of 103 F. He is on 2 L/m nasal cannula, oxygenating around 94%. He is disoriented and unable to provide any meaningful information. He mostly mumbles. I did speak to the patient's daughter, who denies any recent sinus, ear, or pulmonary infections. I am concerned for possible encephalitis or meningitis. I spoke with neurology last night, and updated them on the patient. There is an EEG pending for the morning. Patient is empirically covered with combination of ampicillin, vancomycin, and Rocephin. Infectious disease consult was also placed. Heart rhythm is currently normal sinus on bedside monitor. Blood pressure is normotensive. Normal saline is infusing at 130 ML's per hour. No need for vasopressors at this time. Patient will need a thorough neurological workup. He is being monitored in the intensive care unit in the meantime. Patient was seen and examined today on 02/25/2023, remains in the ICU, spiking temperatures intermittently, he had a T-max of 102.9. Spinal fluid workup so far is negative for bacterial meningitis. However viral meningitis/encephalitis is not entirely ruled out, and workup is still in progress. In the meantime the patient is being followed by many consultants including infectious disease and urology. Apparently his EEG was negative for seizure activity. Labs today showed leukocytosis with WBC of 15.1 hemoglobin is normal electrolytes are normal bicarb is 20 creatinine is 1.7, improved compared to his baseline on admission liver enzymes remain at the time elevated ammonia level is normal. Drug screen was negative. CPK was elevated on admission, no CPK noted today. His pro-calcitonin level 0.31. Ultrasound of the abdomen and pelvis showed sludge in the gallbladder, it also showed hepatomegaly, otherwise limited exam Reevaluated today on 02/26/70, remains in the ICU on 3 L nasal cannula. Patient continues to have poor mental status, seems to be obtunded, at times he may follow simple instructions like wiggling toes but most of the time he doesn't. Patient is snoring and is having episodes of apnea hence ABG was done and showed a pO2 of 82 pCO2 37 pH of 7.35. Continues to have relatively high CPK but improving [id number], renal functioning continues to be about the same. Patient has a low bicarb of 16, and I'm recommending 1 amp of bicarb to be given. So far all the diagnostic workup is nondiagnostic the West Nile virus workup is still pending. Patient did have elevated WBC count elevated pro calcitonin. Mental status is not showing any improvement whatsoever. Neurology is following. Chest x-ray continues to show left basilar atelectasis, strongly doubt pneumonia. Patient remains empirically on antibiotics. He is on Zosyn. Remains on IV fluid at 150 ML per hour in the form of 1.9 normal saline. Patient was reevaluated today on 02/27/2023, patient remains in the ICU, he is on 2 L nasal cannula, his IV fluids remains at 1 50 mL per hour in the form of 0.9 normal saline, patient is scheduled to have an MRI today. Patient seems to be m ore responsive today, at least he is following instructions, his speech however remains quite garbled. He knows that he is in the hospital, he knew that it is 2022, but again his speech is very quite garbled and hard to understand. Considering his presentation I believe this is a significant improvement compared to his mental status upon presentation. CBC showed Fernie Smith is better at 13.8 hemoglobin is 14.4. Basic metabolic profile is normal, renal profile is normal CPK remains a bit elevated but trending down it is over 8000 Objective - Vital Signs Vital signs: Vital Signs Temp 99.0 F 02/27/23 08:00 Pulse 64 02/27/23 10:00 Resp 19 02/27/23 10:00 BP 130/57 02/27/23 10:00 Pulse Ox 98 02/27/23 10:00 FiO2 28 02/26/23 10:00 Intake & Output 02/26/23 02/27/23 02/27/23 18:59 06:59 18:59 Intake Total 2009 1480 130 Output Total 675 905 50 Balance 1335 575 80 Intake: IV 1880 130 Piperacillin-Tazobactam 3 200 .375 gm In Sodium Chloride 0.9% 100 ml @ 25 mls/hr IVPB Q8HR [facility] Rx# :[id number] Sodium Chloride 0.9% 1, 1430 130 000 ml @ 130 mls/hr IV . Q7H42M [facility] Rx#:[id number] acyclovir 250 Intake, IV Titration 130 1300 130 Amount Sodium Chloride 0.9% 1, 130 1300 130 000 ml @ 130 mls/hr IV . Q7H42M [facility] Rx#:[id number] Tube Feeding 50 Output: Urine 675 905 50 Other: Voiding Method Indwelling Catheter Indwelling Catheter - Exam GENERAL EXAM: Arousable, follows instructions but his speech seems to be quite garbled HEAD: Normocephalic and atraumatic EYES: Normal reaction of pupils, equal size. NOSE: Clear with pink turbinates. THROAT: No erythema or exudates. NECK: No masses, no JVD. CHEST: No chest wall deformity. LUNGS: Equal air entry with no crackles, wheeze, rhonchi or dullness. CVS: S1 and S2 normal with no audible murmur, regular rhythm. No extra heart sounds ABDOMEN: Obese soft nontender no megaly no rebound no guarding SPINE: No scoliosis or deformity SKIN: No rashes CENTRAL NERVOUS SYSTEM: Definitely more awake today, follows instructions, garbled speech. EXTREMITIES: There is no peripheral edema, clubbing, or cyanosis. Peripheral pulses are intact. - Labs CBC & Chem 7: 02/27/23 06:28 02/27/23 06:28 Labs: Abnormal Lab Results - Last 24 Hours (Table) 02/27/23 02/27/23 02/27/23 Range/Units 06:24 06:28 06:28 WBC 13.8 H (3.8-10.6) k/uL Plt Count 92 L (150-450) k/uL Chloride 118 H (98-107) mmol/L Carbon Dioxide 16 L (22-30) mmol/L BUN 26 H (9-20) mg/dL POC Glucose (mg/dL) 123 H (70-110) mg/dL Calcium 7.6 L (8.4-10.2) mg/dL Total Bilirubin 1.9 H (0.2-1.3) mg/dL AST 262 H (17-59) U/L ALT 93 H (4-49) U/L Creatine Kinase (55-170) U/L Total Protein 5.9 L (6.3-8.2) g/dL Albumin 2.8 L (3.5-5.0) g/dL 02/27/23 Range/Units 10:51 WBC (3.8-10.6) k/uL Plt Count (150-450) k/uL Chloride (98-107) mmol/L Carbon Dioxide (22-30) mmol/L BUN (9-20) mg/dL POC Glucose (mg/dL) (70-110) mg/dL Calcium (8.4-10.2) mg/dL Total Bilirubin (0.2-1.3) mg/dL AST (17-59) U/L ALT (4-49) U/L Creatine Kinase >8000 H* (55-170) U/L Total Protein (6.3-8.2) g/dL Albumin (3.5-5.0) g/dL Microbiology - Last 24 Hours (Table) 02/23/23 12:15 Blood Culture - Preliminary Blood 02/23/23 12:30 Blood Culture - Preliminary Blood 02/24/23 11:10 CSF Gram Stain - Preliminary Cerebral Spinal Fluid CSF Culture - Preliminary 02/25/23 05:19 Blood Culture - Preliminary Blood Assessment and Plan Assessment: Impression: Suspect sepsis, exact source is not clear, could still be [employer] related, possible viral encephalitis, further workup is pending. Altered mental status, further investigation is pending. Nonetheless his mental status seems to be appropriate today for the first time. Acute febrile illness and sepsis, no obvious infectious process identified yet, all cultures have been negative so far. Leukocytosis, doubt pneumonia chest x-ray did not point to pneumonia , minimal atelectasis left base Acute rhabdomyolysis, significantly elevated CPK, improving with hydration Elevated LFTs, viral studies are pending, ultrasound showed hepatomegaly Elevated troponins, possibly related to supply/demand mismatch, this was addressed by cardiology and not recommending any further workup Recommendation: Continue antibiotics empirically. Continue to monitor for possible seizures although his EEG showed no evidence of seizure focus Continue to check on blood cultures and other cultures which were sent including the CSF cultures, all have been negative so far West Nile virus workup is still pending Continue hydration, monitor renal profile and monitor CPK Continue GI and DVT prophylaxis We'll continue to monitor in the ICU for the next 24 hours, patient may have an MRI today as ordered by neurology We will continue to follow. Time with Patient: Less than 30
[2023-02-27] MEDS ORDERED: DILTIAZEM DRIP BOLUS FROM BAG 1 MG SOLN IV ONE (15:35)
[2023-02-27] MEDS: DILTIAZEM 125 MG in SODIUM CHLORIDE 0.9% 100 ML IV SCH (16:20)
[2023-02-27] MEDS ORDERED: HEPARIN SODIUM 1,000 UN/ML (10ML VL) IV PRN (17:24)
[2023-02-27] MEDS: HEPARIN SOD,PORK IN 0.45% NACL 25,000 UNIT in 0.45% NACL 1 250ML.BAG IV SCH (17:38)
[2023-02-27 18:56] LABS: Glucose,Whole Blood 122 mg/dL (70-110)
[2023-02-28 00:20] LABS: Glucose,Whole Blood 108 mg/dL (70-110)
[2023-02-28] MEDS: SODIUM CHLORIDE 0.9% 1,000 ML IV SCH ×3 (00:21→15:46)
[2023-02-28 01:59] LABS: African American GFR (CKD) >90 (>60 ml/min/1.73 sqM); Anion Gap 8 mmol/L; Blood Urea Nitrogen 25 mg/dL (9-20); Calcium 7.6 mg/dL (8.4-10.2); Carbon Dioxide 21 mmol/L (22-30); Chloride 115 mmol/L (98-107); Glucose 104 mg/dL (74-99); Magnesium 2.3 mg/dL (1.6-2.3); Non-African American GFR(CKD) >90 (>60 ml/min/1.73 sqM); Potassium 3.9 mmol/L (3.5-5.1); Sodium 144 mmol/L (137-145)
[2023-02-28] MEDS: POTASSIUM CHLORIDE 10 MEQ in WATER FOR INJECTION 1 100ML.BAG IVPB SCH ×2 (02:59→04:21)
[2023-02-28] MEDS: DILTIAZEM 125 MG in SODIUM CHLORIDE 0.9% 100 ML IV SCH (03:01)
[2023-02-28 05:34] LABS: Basophils % (A) 0 %; Eosinophils % (A) 0 %; HCT 41.5 % (39.0-53.0); Lymphocytes # (A) 0.6 k/uL (1.0-4.8); Lymphocytes % (A) 5 %; MCH 33.3 pg (25.0-35.0); MCHC 33.8 g/dL (31.0-37.0); MCV 98.5 fL (80.0-100.0); Mean Platelet Volume 9.7; Monocytes # (A) 0.6 k/uL (0-1.0); Monocytes % (A) 5 %; Neutrophils # (A) 11.1 k/uL (1.3-7.7); Neutrophils % (A) 89 %; Platelet Count 127 k/uL (150-450); RBC 4.21 m/uL (4.30-5.90); RDW 12.3 % (11.5-15.5); WBC 12.6 k/uL (3.8-10.6)
[2023-02-28 05:38] LABS: African American GFR (CKD) >90 (>60 ml/min/1.73 sqM); Anion Gap 11 mmol/L; Blood Urea Nitrogen 26 mg/dL (9-20); Calcium 7.8 mg/dL (8.4-10.2); Carbon Dioxide 19 mmol/L (22-30); Chloride 114 mmol/L (98-107); Glucose 109 mg/dL (74-99); Non-African American GFR(CKD) >90 (>60 ml/min/1.73 sqM); Potassium 4.1 mmol/L (3.5-5.1); Sodium 144 mmol/L (137-145)
[2023-02-28 05:54] LABS: Glucose,Whole Blood 113 mg/dL (70-110)
[2023-02-28 06:36] LABS: Creatine Kinase 5256 U/L (55-170)
[2023-02-28] MEDS: PIPERACILLIN-TAZOBACTAM 3.375 GM in SODIUM CHLORIDE 0.9% 100 ML IVPB SCH ×2 (08:21→15:45)
[2023-02-28] MEDS: PANTOPRAZOLE 40 MG/10 ML VIAL IVP SCH (08:22)
[2023-02-28] MEDS: levETIRAcetam IV 500 MG/5 ML VIAL IVP SCH ×2 (08:22→21:20)
[2023-02-28] MEDS: HYDROmorphone 1 MG/ML 1 ML SYRINGE IVP PRN ×3 (10:17→20:18)
--- NOTE | 2023-02-28 10:36 | PN ---
PROGRESS NOTE DATE OF SERVICE: 02/27/2023 SUBJECTIVE: This is a 77-year-old gentleman, who is admitted to hospital with confusion that we signed off on and yesterday afternoon they called me stating that the patient went into new onset atrial fibrillation with rapid ventricular rate. I reassessed him yesterday evening, started him on intravenous Cardizem and intravenous heparin after getting it okay from the transit proof machine operator. The patient appeared confused, but less combative and his confusion had improved. OBJECTIVE: VITAL SIGNS: Heart rate was elevated at 90 to 100 beats per minute. Blood pressure was 100/60, respiratory rate is 18. CHEST: Reveals diminished air entry at the bases. HEART: Reveals first and second heart sounds. Systolic murmur at the apex. ABDOMEN: Soft. EXTREMITIES: Did not reveal any edema. Peripheral pulses are felt. ASSESSMENT AND PLAN: New onset atrial fibrillation. We will control the heart rate with Cardizem and treat him with IV heparin. MMSHERIDAN / WALTERN: [id number] /
--- NOTE | 2023-02-28 11:25 | P.PN ---
Subjective Progress Note Date: 02/27/23 Patient was seen for a follow-up. Patient's 2 daughters were present today. Patient was undergoing MRI of the brain, but he developed atrial fibrillation with rapid ventricular rate. He was started on Cardizem drip and heparin IV. MRI was canceled. At present patient is sedated because he did get Dilaudid 4 pain before he was scheduled for MRI, which never got done. Patient continues to be severely encephalopathic. He is still nonverbal. He does open his eyes, makes eye contact, and per family follow slight directions. No seizure-like activity noticed. Patient's family has mentioned that patient does work in the yard, cuts his own grass, and on the Labor Day weekend, the event to watch the [id number] game. He regularly goes out for a walk with his . He may have been exposed to mosquitoes. Patient was fine until Thursday when he stopped talking and presented to the ER. Objective - Vital Signs Vital signs: Vital Signs Temp 98.4 F 02/27/23 16:00 Pulse 96 02/27/23 19:00 Resp 24 02/27/23 19:00 BP 118/76 02/27/23 19:00 Pulse Ox 93 L 02/27/23 19:00 FiO2 28 02/26/23 10:00 Intake & Output 02/27/23 02/27/23 02/28/23 06:59 18:59 06:59 Intake Total 1480 1760 130 Output Total 905 1090 45 Balance 575 670 85 Intake: IV 130 1630 130 Piperacillin-Tazobactam 3 200 .375 gm In Sodium Chloride 0.9% 100 ml @ 25 mls/hr IVPB Q8HR [facility] Rx# :[id number] Sodium Chloride 0.9% 1, 130 1430 130 000 ml @ 130 mls/hr IV . Q7H42M [facility] Rx#:[id number] Intake, IV Titration 1300 130 Amount Sodium Chloride 0.9% 1, 1300 130 000 ml @ 130 mls/hr IV . Q7H42M [facility] Rx#:[id number] Tube Feeding 50 Output: Urine 905 1090 45 Other: Voiding Method Indwelling Catheter Indwelling Catheter - Exam Patient is obviously encephalopathic. Pupils are equal, round and reacting. Visual myers could not be tested. Face is symmetric. Patient did not cooperate with muscle strength testing. Patient's tone has significantly increased in the arms and legs all over. 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 Patient has probable bilateral Babinski. Occasional tremor was noted of the right hand. - Labs CBC & Chem 7: 02/28/23 04:38 02/28/23 04:38 Labs: Abnormal Lab Results - Last 24 Hours (Table) 02/27/23 02/27/23 02/27/23 Range/Units 06:24 06:28 06:28 WBC 13.8 H (3.8-10.6) k/uL Plt Count 92 L (150-450) k/uL Chloride 118 H (98-107) mmol/L Carbon Dioxide 16 L (22-30) mmol/L BUN 26 H (9-20) mg/dL POC Glucose (mg/dL) 123 H (70-110) mg/dL Calcium 7.6 L (8.4-10.2) mg/dL Total Bilirubin 1.9 H (0.2-1.3) mg/dL AST 262 H (17-59) U/L ALT 93 H (4-49) U/L Creatine Kinase (55-170) U/L Total Protein 5.9 L (6.3-8.2) g/dL Albumin 2.8 L (3.5-5.0) g/dL 02/27/23 02/27/23 Range/Units 10:51 18:54 WBC (3.8-10.6) k/uL Plt Count (150-450) k/uL Chloride (98-107) mmol/L Carbon Dioxide (22-30) mmol/L BUN (9-20) mg/dL POC Glucose (mg/dL) 122 H (70-110) mg/dL Calcium (8.4-10.2) mg/dL Total Bilirubin (0.2-1.3) mg/dL AST (17-59) U/L ALT (4-49) U/L Creatine Kinase 81888 H* (55-170) U/L Total Protein (6.3-8.2) g/dL Albumin (3.5-5.0) g/dL Microbiology - Last 24 Hours (Table) 02/25/23 05:19 Blood Culture - Preliminary Blood 02/23/23 12:15 Blood Culture - Preliminary Blood 02/23/23 12:30 Blood Culture - Preliminary Blood 02/24/23 11:10 CSF Gram Stain - Preliminary Cerebral Spinal Fluid CSF Culture - Preliminary Assessment and Plan Assessment: * Altered mental status, acute onset with high fevers, and severe encephalopathy, nuchal and generalized rigidity and some tremulousness. Rule out encephalitis, meningitis. Concerning for West Nile virus. * Acute rhabdomyolysis * Elevated cardiac enzymes * History of bilateral knee replacement. Plan: * CSF performed 02/24/2023 was colorless and clear. CSF glucose 52, protein 86 (12-60). WBC count 4, RBCs 358. Comprehensive viral detection negative. * Patient is currently on Zosyn for possible pneumonia. We will discontinue acyclovir because HSV PCR negative. ID on board. * Initial EEG revealed background slowing and disorganization of mild degree suggestive of encephalopathy. There is no epileptiform activity. * Continue Keppra 750 mg twice a day for now. Repeat EEG in the morning. * Await West Nile virus serology from CSF. * Cardiology on board for elevated cardiac enzymes and bradycardia/tachycardia. * Repeat CPK improved 10,832 as of this morning. Follow the trend. * Await MRI of the brain with and without contrast. * Discussed with patient's daughters in detail.
--- NOTE | 2023-02-28 11:31 | PN ---
PROGRESS NOTE SUBJECTIVE: A 77-year-old gentleman who was admitted to hospital with confusion, developed an episode of atrial fibrillation yesterday. I started him on IV Cardizem and heparin this morning. Heart rate was better controlled. He appears less confused. PHYSICAL EXAMINATION: VITAL SIGNS: On exam, heart rate is 90 to 100 beats per minute. Blood pressure is 110/70. Respiratory rate is 18. CHEST: Reveals diminished air entry at the bases. HEART: Reveals first and second heart sounds, irregular rhythm and a systolic murmur at the apex. ABDOMEN: Soft. EXTREMITIES: Did not reveal any edema. Peripheral pulses are felt. ASSESSMENT: Atrial fibrillation with poorly-controlled ventricular rate. PLAN: I will continue the heparin and intravenous Cardizem. MMODL / IJN: [id number] /
[2023-02-28] MEDS: HEPARIN SOD,PORK IN 0.45% NACL 25,000 UNIT in 0.45% NACL 1 250ML.BAG IV SCH (11:45)
--- NOTE | 2023-02-28 11:47 | P.PN ---
Subjective Progress Note Date: 02/28/23 Principal diagnosis: Sepsis and mental status change I am seeing this patient in new consultation today 02/24/2023 after the patient presented to the ER yesterday evening with concerns of altered mental status. Patient is a 77-year-old white male with a limited past medical history. Apparently, the patient's found him down on the ground early yesterday morning confused. His last known well time was the night prior. Nonenhanced brain CT on arrival shows age-related atrophic and chronic small vessel ischemia without any obvious acute cranial process. Initial chest x-ray on arrival showed fullness around the right hilum likely related patient rotation. Underlying infiltrate or mass not excluded. CBC shows leukocytosis with a WBC count of 16, hemoglobin 13.5, hematocrit 39.1, platelets 109,000. BMP shows sodium 136, potassium 3.7, chloride 110, serum bicarb 17, BUN 36, creatinine 1.22, glucose 102. LFTs are mildly elevated. Troponins are 1.66 and 1.9. Ur inalysis not particularly concerning for UTI. Negative for influenza, RSV, COVID-19. Patient was originally admitted to the floor, and was transferred to the ICU last night for tachycardia and hypotension. Yesterday, he was given a total of 2.5 L normal saline bolus. On my evaluation, the patient is lying in bed, extremities are rigid, he is febrile with a t-max of 103 F. He is on 2 L/m nasal cannula, oxygenating around 94%. He is disoriented and unable to provide any meaningful information. He mostly mumbles. I did speak to the patient's daughter, who denies any recent sinus, ear, or pulmonary infections. I am concerned for possible encephalitis or meningitis. I spoke with neurology last night, and updated them on the patient. There is an EEG pending for the morning. Patient is empirically covered with combination of ampicillin, vancomycin, and Rocephin. Infectious disease consult was also placed. Heart rhythm is currently normal sinus on bedside monitor. Blood pressure is normotensive. Normal saline is infusing at 130 ML's per hour. No need for vasopressors at this time. Patient will need a thorough neurological workup. He is being monitored in the intensive care unit in the meantime. Patient was seen and examined today on 02/25/2023, remains in the ICU, spiking temperatures intermittently, he had a T-max of 102.9. Spinal fluid workup so far is negative for bacterial meningitis. However viral meningitis/encephalitis is not entirely ruled out, and workup is still in progress. In the meantime the patient is being followed by many consultants including infectious disease and urology. Apparently his EEG was negative for seizure activity. Labs today showed leukocytosis with WBC of 15.1 hemoglobin is normal electrolytes are normal bicarb is 20 creatinine is 1.7, improved compared to his baseline on admission liver enzymes remain at the time elevated ammonia level is normal. Drug screen was negative. CPK was elevated on admission, no CPK noted today. His pro-calcitonin level 0.31. Ultrasound of the abdomen and pelvis showed sludge in the gallbladder, it also showed hepatomegaly, otherwise limited exam Reevaluated today on 02/26/70, remains in the ICU on 3 L nasal cannula. Patient continues to have poor mental status, seems to be obtunded, at times he may follow simple instructions like wiggling toes but most of the time he doesn't. Patient is snoring and is having episodes of apnea hence ABG was done and showed a pO2 of 82 pCO2 37 pH of 7.35. Continues to have relatively high CPK but improving 57738, renal functioning continues to be about the same. Patient has a low bicarb of 16, and I'm recommending 1 amp of bicarb to be given. So far all the diagnostic workup is nondiagnostic the West Nile virus workup is still pending. Patient did have elevated WBC count elevated pro calcitonin. Mental status is not showing any improvement whatsoever. Neurology is following. Chest x-ray continues to show left basilar atelectasis, strongly doubt pneumonia. Patient remains empirically on antibiotics. He is on Zosyn. Remains on IV fluid at 150 ML per hour in the form of 1.9 normal saline. Patient was reevaluated today on 02/27/2023, patient remains in the ICU, he is on 2 L nasal cannula, his IV fluids remains at 1 50 mL per hour in the form of 0.9 normal saline, patient is scheduled to have an MRI today. Patient seems to be m ore responsive today, at least he is following instructions, his speech however remains quite garbled. He knows that he is in the hospital, he knew that it is 2022, but again his speech is very quite garbled and hard to understand. Considering his presentation I believe this is a significant improvement compared to his mental status upon presentation. CBC showed W Luis is better at 13.8 hemoglobin is 14.4. Basic metabolic profile is normal, renal profile is normal CPK remains a bit elevated but trending down it is over 8000 Patient was seen again on 02/28/2023 patient remains in the ICU, last night he developed an episode of atrial fibrillation with RVR, he is now on Cardizem at 2.5 mg per hour, is also on heparin drip. Remains on IV fluid at 13 0 mL per hour. CPK is down to 5256, mental status is still basically about the same as yesterday, patient seems to comprehend, he knows where he is, he knows the year, but his speech is very garbled. And seems to be very slow. Unable to swallow, hence I'm recommending a nasogastric tube to be placed and start enteral feeding on this patient sometime today. Patient was supposed to have an MRI yesterday, but because of atrial fibrillation and RVR, MRI was canceled overall the patient remains encephalopathic, but slowly improving compared to his baseline upon his initial presentation. Neurology on the case still concerned about the possibility of encephalitis/meningitis and concerned about West Nile virus, workup is still pending in the meantime the patient remains on Zosyn empirically. He is also on Keppra although his EEG showed no evidence of epileptiform focus. Objective - Vital Signs Vital signs: Vital Signs Temp 99.3 F 02/28/23 08:00 Pulse 57 L 02/28/23 11:00 Resp 21 02/28/23 11:00 BP 114/73 02/28/23 11:00 Pulse Ox 94 L 02/28/23 11:00 FiO2 28 02/26/23 10:00 Intake & Output 02/27/23 02/28/23 02/28/23 18:59 06:59 18:59 Intake Total 1760 1968.500 869.875 Output Total 1090 630 335 Balance 670 1338.500 534.875 Weight 111 kg 111 kg Intake: IV 1630 1635 750 Piperacillin-Tazobactam 3 200 75 100 .375 gm In Sodium Chloride 0.9% 100 ml @ 25 mls/hr IVPB Q8HR [facility] Rx# :[id number] Sodium Chloride 0.9% 1, 1430 1560 650 000 ml @ 130 mls/hr IV . Q7H42M [facility] Rx#:[id number] Intake, IV Titration 130 333.500 119.875 Amount Diltiazem 125 mg In 131.500 19.875 Sodium Chloride 0.9% 100 ml @ Per Protocol IV .Q0M [facility] Rx#:[id number] Heparin Sod,Pork in 0.45% 102 NaCl 25,000 unit In 0.45 % NaCl 1 250ml.bag @ 9. 355 UNITS/KG/HR 10 mls/hr IV .Q24H [facility] Rx#: [id number] Potassium Chloride 10 meq 100 100 In Water For Injection 1 100ml.bag @ 100 mls/hr IVPB Q1H [facility] Rx#: [id number] Sodium Chloride 0.9% 1, 130 000 ml @ 130 mls/hr IV . Q7H42M [facility] Rx#:[id number] Output: Urine 1090 630 335 Other: Voiding Method Indwelling Catheter Indwelling Catheter Indwelling Catheter - Exam GENERAL EXAM: Arousable, follows instructions but his speech seems to be quite garbled HEAD: Normocephalic and atraumatic EYES: Normal reaction of pupils, equal size. NOSE: Clear with pink turbinates. THROAT: No erythema or exudates. NECK: No masses, no JVD. CHEST: No chest wall deformity. LUNGS: Equal air entry with no crackles, wheeze, rhonchi or dullness. CVS: S1 and S2 normal with no audible murmur, regular rhythm. No extra heart sounds ABDOMEN: Obese soft nontender no megaly no rebound no guarding SPINE: No scoliosis or deformity SKIN: No rashes CENTRAL NERVOUS SYSTEM: follows instructions, garbled speech. EXTREMITIES: There is no peripheral edema, clubbing, or cyanosis. Peripheral pulses are intact. - Labs CBC & Chem 7: 02/28/23 04:38 02/28/23 04:38 Labs: Abnormal Lab Results - Last 24 Hours (Table) 02/27/23 02/27/23 02/27/23 Range/Units 10:51 18:54 23:04 WBC (3.8-10.6) k/uL RBC (4.30-5.90) m/uL Plt Count (150-450) k/uL Neutrophils # (1.3-7.7) k/uL Lymphocytes # (1.0-4.8) k/uL APTT 30.7 H (22.0-30.0) sec Chloride (98-107) mmol/L Carbon Dioxide (22-30) mmol/L BUN (9-20) mg/dL Creatinine (0.66-1.25) mg/dL Glucose (74-99) mg/dL POC Glucose (mg/dL) 122 H (70-110) mg/dL Calcium (8.4-10.2) mg/dL Creatine Kinase 14675 H* (55-170) U/L 02/28/23 02/28/23 02/28/23 Range/Units 00:41 04:38 04:38 WBC 12.6 H (3.8-10.6) k/uL RBC 4.21 L (4.30-5.90) m/uL Plt Count 127 L (150-450) k/uL Neutrophils # 11.1 H (1.3-7.7) k/uL Lymphocytes # 0.6 L (1.0-4.8) k/uL APTT (22.0-30.0) sec Chloride 115 H 114 H (98-107) mmol/L Carbon Dioxide 21 L 19 L (22-30) mmol/L BUN 25 H 26 H (9-20) mg/dL Creatinine 0.61 L (0.66-1.25) mg/dL Glucose 104 H 109 H (74-99) mg/dL POC Glucose (mg/dL) (70-110) mg/dL Calcium 7.6 L 7.8 L (8.4-10.2) mg/dL Creatine Kinase 5256 H* (55-170) U/L 02/28/23 02/28/23 Range/Units 04:38 05:52 WBC (3.8-10.6) k/uL RBC (4.30-5.90) m/uL Plt Count (150-450) k/uL Neutrophils # (1.3-7.7) k/uL Lymphocytes # (1.0-4.8) k/uL APTT 57.6 H (22.0-30.0) sec Chloride (98-107) mmol/L Carbon Dioxide (22-30) mmol/L BUN (9-20) mg/dL Creatinine (0.66-1.25) mg/dL Glucose (74-99) mg/dL POC Glucose (mg/dL) 113 H (70-110) mg/dL Calcium (8.4-10.2) mg/dL Creatine Kinase (55-170) U/L Microbiology - Last 24 Hours (Table) 02/24/23 11:10 CSF Gram Stain - Preliminary Cerebral Spinal Fluid CSF Culture - Preliminary 02/25/23 05:19 Blood Culture - Preliminary Blood Assessment and Plan Assessment: Impression: Suspect sepsis, exact source is not clear, could still be [employer] related, possible viral encephalitis, further workup is pending. Altered mental status, further investigation is pending. Nonetheless his mental status seems to be appropriate today for the first time. Acute febrile illness and sepsis, no obvious infectious process identified yet, all cultures have been negative so far. Leukocytosis, doubt pneumonia chest x-ray did not point to pneumonia , minimal atelectasis left base Acute rhabdomyolysis, significantly elevated CPK, improving with hydration Elevated LFTs, viral studies are pending, ultrasound showed hepatomegaly Elevated troponins, possibly related to supply/demand mismatch, this was addressed by cardiology and not recommending any further workup Recommendation: Continue antibiotics empirically. Continue to monitor for possible seizures although his EEG showed no evidence of seizure focus West Nile virus workup is still pending Continue hydration, monitor renal profile and monitor CPK, CPK coming down to just over 5000 Continue GI and DVT prophylaxis We will keep the patient in the ICU We will continue to follow. Time with Patient: Less than 30
[2023-02-28 12:09] LABS: Glucose,Whole Blood 95 mg/dL (70-110)
--- NOTE | 2023-02-28 13:04 | P.PN ---
Subjective Progress Note Date: 02/28/23 77-year-old white male the patient's found him down on the ground * Nonenhanced brain CT on arrival shows age-related atrophic and chronic small vessel ischemia without any obvious acute cranial process. * Initial chest x-ray on arrival showed fullness around the right hilum likely related patient rotation. Underlying infiltrate or mass not excluded. CBC shows leukocytosis with a WBC count of 16, hemoglobin 13.5, hematocrit 39.1, platelets 109,000. BMP shows sodium 136, potassium 3.7, chloride 110, serum bicarb 17, BUN 36, creatinine 1.22, glucose 102. LFTs are mildly elevated. Troponins are 1.66 and 1.9. Urinalysis not particularly concerning for UTI. Negative for influenza, RSV, COVID-19. * Patient was originally admitted to the floor, and was transferred to the ICU for tachycardia and hypotension. * on 02/25/2023, remains in the ICU, spiking temperatures intermittently, he had a T-max of 102.9. Spinal fluid workup so far is negative for bacterial meningitis. However viral meningitis/encephalitis is not entirely ruled out, and workup is still in progress. * on 02/26, remains in the ICU on 3 L nasal cannula. Patient continues to have poor mental status, seems to be obtunded all the diagnostic workup is nondiagnostic the West Nile virus workup pending. * on 02/27, patient remains in the ICU, he is on 2 L nasal cannula, mentation continued to wax and wane * On 02/28 patient remains in ICU had episode of A. fib RVR started on IV Cardizem and heparin drip. Mental status continued to remain disoriented and minimally arousable MRI was canceled secondary to episode of A. fib RVR. Neurology on the case following infectious disease following. Review off system limited secondary to mentation * Objective - Vital Signs Vital signs: Vital Signs Temp 98.0 F 02/28/23 12:00 Pulse 70 02/28/23 12:00 Resp 14 02/28/23 12:00 BP 114/64 02/28/23 12:00 Pulse Ox 97 02/28/23 12:00 FiO2 28 02/26/23 10:00 Intake & Output 02/27/23 02/28/23 02/28/23 18:59 06:59 18:59 Intake Total 1760 0553.270 9453.258 Output Total 1090 630 395 Balance 670 1338.500 762.258 Weight 111 kg 111 kg Intake: IV 1630 1635 880 Piperacillin-Tazobactam 3 200 75 100 .375 gm In Sodium Chloride 0.9% 100 ml @ 25 mls/hr IVPB Q8HR [facility] Rx# :[id number] Sodium Chloride 0.9% 1, 1430 1560 780 000 ml @ 130 mls/hr IV . Q7H42M [facility] Rx#:[id number] Intake, IV Titration 130 333.500 277.258 Amount Diltiazem 125 mg In 131.500 19.875 Sodium Chloride 0.9% 100 ml @ Per Protocol IV .Q0M [facility] Rx#:[id number] Heparin Sod,Pork in 0.45% 102 157.383 NaCl 25,000 unit In 0.45 % NaCl 1 250ml.bag @ 9. 355 UNITS/KG/HR 10 mls/hr IV .Q24H [facility] Rx#: [id number] Potassium Chloride 10 meq 100 100 In Water For Injection 1 100ml.bag @ 100 mls/hr IVPB Q1H [facility] Rx#: [id number] Sodium Chloride 0.9% 1, 130 000 ml @ 130 mls/hr IV . Q7H42M [facility] Rx#:[id number] Output: Urine 1090 630 395 Other: Voiding Method Indwelling Catheter Indwelling Catheter Indwelling Catheter - Exam PHYSICAL EXAMINATION: GENERAL: The patient is alert and oriented x0 , ill appearance HEENT: Pupils are round and equally reacting to light. CARDIOVASCULAR: S1 and S2 present. Irregular tachycardia PULMONARY: She is breath sounds bilaterally ABDOMEN: Soft, nontender, nondistended, normoactive bowel sounds. MUSCULOSKELETAL: No joint swelling or deformity. EXTREMITIES: No cyanosis, clubbing, or pedal edema. NEUROLOGICAL: Patient is disoriented not following commands - Labs CBC & Chem 7: 02/28/23 04:38 02/28/23 04:38 Labs: Abnormal Lab Results - Last 24 Hours (Table) 02/27/23 02/27/23 02/27/23 Range/Units 10:51 18:54 23:04 WBC (3.8-10.6) k/uL RBC (4.30-5.90) m/uL Plt Count (150-450) k/uL Neutrophils # (1.3-7.7) k/uL Lymphocytes # (1.0-4.8) k/uL APTT 30.7 H (22.0-30.0) sec Chloride (98-107) mmol/L Carbon Dioxide (22-30) mmol/L BUN (9-20) mg/dL Creatinine (0.66-1.25) mg/dL Glucose (74-99) mg/dL POC Glucose (mg/dL) 122 H (70-110) mg/dL Calcium (8.4-10.2) mg/dL Creatine Kinase 84256 H* (55-170) U/L 02/28/23 02/28/23 02/28/23 Range/Units 00:41 04:38 04:38 WBC 12.6 H (3.8-10.6) k/uL RBC 4.21 L (4.30-5.90) m/uL Plt Count 127 L (150-450) k/uL Neutrophils # 11.1 H (1.3-7.7) k/uL Lymphocytes # 0.6 L (1.0-4.8) k/uL APTT (22.0-30.0) sec Chloride 115 H 114 H (98-107) mmol/L Carbon Dioxide 21 L 19 L (22-30) mmol/L BUN 25 H 26 H (9-20) mg/dL Creatinine 0.61 L (0.66-1.25) mg/dL Glucose 104 H 109 H (74-99) mg/dL POC Glucose (mg/dL) (70-110) mg/dL Calcium 7.6 L 7.8 L (8.4-10.2) mg/dL Creatine Kinase 5256 H* (55-170) U/L 02/28/23 02/28/23 Range/Units 04:38 05:52 WBC (3.8-10.6) k/uL RBC (4.30-5.90) m/uL Plt Count (150-450) k/uL Neutrophils # (1.3-7.7) k/uL Lymphocytes # (1.0-4.8) k/uL APTT 57.6 H (22.0-30.0) sec Chloride (98-107) mmol/L Carbon Dioxide (22-30) mmol/L BUN (9-20) mg/dL Creatinine (0.66-1.25) mg/dL Glucose (74-99) mg/dL POC Glucose (mg/dL) 113 H (70-110) mg/dL Calcium (8.4-10.2) mg/dL Creatine Kinase (55-170) U/L Microbiology - Last 24 Hours (Table) 02/24/23 11:10 CSF Gram Stain - Preliminary Cerebral Spinal Fluid CSF Culture - Preliminary 02/25/23 05:19 Blood Culture - Preliminary Blood Assessment and Plan Assessment: Assessment and plan * Acute encephalopathy multifactorial possible viral encephalitis * Sepsis with underlying pneumonia * Acute rhabdomyolysis * Transaminitis * New onset A. fib with rapid ventricular response * Elevated troponin type II OH * In regards to encephalopathy patient seen by infectious disease, neurology. Lumbar puncture completed. West Nile virus workup pending. Patient was on acyclovir which has been discontinued since HSV workup negative. Continue patient on Zosyn. Continue patient on IV Keppra further recommendations from neurology * In regards to rhabdomyolysis continue patient on fluid resuscitation and fo llow up on CPK levels * In regards to new onset A. fib and RVR continue IV heparin, continue Cardizem drip cardiology following * Prognosis remains guarded K plan discussed with at bedside
--- NOTE | 2023-02-28 14:17 | P.PN ---
Subjective Progress Note Date: 02/26/23 Principal diagnosis: Fever Patient is a 77-year-old male presenting to the hospital y after the patient was found to be unresponsive by the , patient has been febrile initial testing negative including LP which was only mildly elevated protein. On today's evaluation that is 02/26/2023, the patient overall fever pattern has improved with a low-grade fever 100.9F this morning, the patient is still lethargic however he did responded to his name eye opening his eyes, the patient is not requiring any pressor support, the patient is currently on 2 L nasal nasal oxygen no vomiting or diarrhea has been reported patient white cowhite count is 18.4, creatinine 0.87, pro-calcitonin 0.31, urine is negative urine drug screen was negative influenza and RSV covid negative, urine for Legionella antigen negative, CSF studies were negative except mildly elevated protein Objective - Vital Signs Vital signs: Vital Signs Temp 100.9 F H 02/26/23 08:00 Pulse 78 02/26/23 09:00 Resp 18 02/26/23 09:00 BP 146/70 02/26/23 09:00 Pulse Ox 97 02/26/23 09:00 FiO2 28 02/26/23 09:35 Intake & Output 02/25/23 02/26/23 02/26/23 18:59 06:59 18:59 Intake Total 1640 2030 360 Output Total 1150 1925 150 Balance 490 105 210 Weight 106.9 kg Intake: IV 1640 1280 230 Piperacillin-Tazobactam 3 100 100 100 .375 gm In Sodium Chloride 0.9% 100 ml @ 25 mls/hr IVPB Q8HR [facility] Rx# :[id number] Potassium Chloride 10 meq 100 In Water For Injection 1 100ml.bag @ 100 mls/hr IVPB Q1H [facility] Rx#: [id number] Sodium Chloride 0.9% 1, 1170 910 130 000 ml @ 130 mls/hr IV . Q7H42M [facility] Rx#:[id number] acyclovir 270 270 Intake, IV Titration 750 130 Amount ACETAMINOPHEN IV (For NPO 100 ) 1,000 mg In Empty Bag 1 bag @ 400 mls/hr IVPB Q6HR [facility] Rx#:[id number] Sodium Chloride 0.9% 1, 650 130 000 ml @ 130 mls/hr IV . Q7H42M [facility] Rx#:[id number] Output: Urine 1150 1925 150 Other: Voiding Method Indwelling Catheter Indwelling Catheter Indwelling Catheter - Exam GENERAL DESCRIPTION: An elderly male lying in bed in no distress RESPIRATORY SYSTEM: Unlabored breathing , coarse breath sounds bilaterally HEART: S1 S2 regular rate and rhythm , ABDOMEN: Soft , no tenderness EXTREMITIES: No edema feet - Labs CBC & Chem 7: 02/28/23 04:38 02/28/23 04:38 Labs: Abnormal Lab Results - Last 24 Hours (Table) 02/26/23 02/26/23 02/26/23 Range/Units 06:28 06:28 09:18 WBC 18.4 H (3.8-10.6) k/uL Plt Count 85 L (150-450) k/uL Neutrophils # 15.9 H (1.3-7.7) k/uL Monocytes # 1.1 H (0-1.0) k/uL ABG pO2 82 L (83-108) mmHg Chloride 114 H (98-107) mmol/L Carbon Dioxide 16 L (22-30) mmol/L BUN 29 H (9-20) mg/dL Calcium 7.5 L (8.4-10.2) mg/dL Creatine Kinase 14574 H* (55-170) U/L Microbiology - Last 24 Hours (Table) 02/23/23 12:15 Blood Culture - Preliminary Blood 02/23/23 12:30 Blood Culture - Preliminary Blood 02/24/23 11:10 CSF Gram Stain - Preliminary Cerebral Spinal Fluid CSF Culture - Preliminary 02/23/23 22:00 Urine Culture - Final Urine,Catheterized Assessment and Plan (1) Fever Current Visit: Yes Status: Acute Code(s): R50.9 - FEVER, UNSPECIFIED SNOMED Code(s): 058680781 (2) Pneumonia Current Visit: Yes Status: Acute Code(s): J18.9 - PNEUMONIA, UNSPECIFIED ORGANISM SNOMED Code(s): 049024632 Plan: 1patient with SIRS in this patient with a fever elevated white count tachycardia with significant mental status changes high clinical suspicious for possible encephalitis/meningitis however the patient LP is relatively clear only mildly elevated protein of 86 patient chest x-ray negative for pneumonia urine has been negative mildly elevated liver enzymes and the patient did have evidence of rhabdomyolysis as the patient has been on the floor for more than 12 hours however no evidence of any bruising or injury has been noticed abdominal soft on clinical examination 2- ultrasound of the abdomen sludge versus artifact in the gallbladder no other abnormality noticed 3- hepatitis panel is negative 4Patient seemed to have shown some clinical improvement and will continue with Zosyn, acyclovir has been discontinued Daughter at the bedside and multiple questions concerned were answered Dictation was produced using [employer] dictation software. please excuse any gra mmatical, word or spelling errors. Time with Patient: Less than 30
--- NOTE | 2023-02-28 14:21 | P.PN ---
Subjective Progress Note Date: 02/28/23 Principal diagnosis: Fever Patient is a 77-year-old male presenting to the hospital y after the patient was found to be unresponsive by the , patient has been febrile initial testing negative including LP which was only mildly elevated protein. On today's evaluation that is 02/28/2023, the patient remains to be afebrile, the patient is breathing comfortably on 2 L nasal cannula oxygen, the patient slightly more awake and alert and he responded to his name and follow some simple commands, the patient is hemodynamically stable not requiring any pressor support, no vomiting or diarrhea has been reported patient white cowhite count is down to 12.6 , creatinine 0.68, pro-calcitonin 0.31, urine is negative urine drug screen was negative influenza and RSV covid negative, urine for Legionella antigen negative, CSF studies were negative except mildly elevated protein Objective - Vital Signs Vital signs: Vital Signs Temp 98.0 F 02/28/23 12:00 Pulse 70 02/28/23 12:00 Resp 14 02/28/23 12:00 BP 114/64 02/28/23 12:00 Pulse Ox 97 02/28/23 12:00 FiO2 28 02/26/23 10:00 Intake & Output 02/27/23 02/28/23 02/28/23 18:59 06:59 18:59 Intake Total 1760 4267.134 2110.258 Output Total 1090 630 395 Balance 670 1338.500 762.258 Weight 111 kg 111 kg Intake: IV 1630 1635 880 Piperacillin-Tazobactam 3 200 75 100 .375 gm In Sodium Chloride 0.9% 100 ml @ 25 mls/hr IVPB Q8HR [facility] Rx# :[id number] Sodium Chloride 0.9% 1, 1430 1560 780 000 ml @ 130 mls/hr IV . Q7H42M [facility] Rx#:[id number] Intake, IV Titration 130 333.500 277.258 Amount Diltiazem 125 mg In 131.500 19.875 Sodium Chloride 0.9% 100 ml @ Per Protocol IV .Q0M [facility] Rx#:[id number] Heparin Sod,Pork in 0.45% 102 157.383 NaCl 25,000 unit In 0.45 % NaCl 1 250ml.bag @ 9. 355 UNITS/KG/HR 10 mls/hr IV .Q24H [facility] Rx#: [id number] Potassium Chloride 10 meq 100 100 In Water For Injection 1 100ml.bag @ 100 mls/hr IVPB Q1H [facility] Rx#: [id number] Sodium Chloride 0.9% 1, 130 000 ml @ 130 mls/hr IV . Q7H42M [facility] Rx#:[id number] Output: Urine 1090 630 395 Other: Voiding Method Indwelling Catheter Indwelling Catheter Indwelling Catheter - Exam GENERAL DESCRIPTION: An elderly male lying in bed in no distress RESPIRATORY SYSTEM: Unlabored breathing , coarse breath sounds bilaterally HEART: S1 S2 regular rate and rhythm , ABDOMEN: Soft , no tenderness EXTREMITIES: No edema feet - Labs CBC & Chem 7: 02/28/23 04:38 02/28/23 04:38 Labs: Abnormal Lab Results - Last 24 Hours (Table) 02/27/23 02/27/23 02/27/23 Range/Units 10:51 18:54 23:04 WBC (3.8-10.6) k/uL RBC (4.30-5.90) m/uL Plt Count (150-450) k/uL Neutrophils # (1.3-7.7) k/uL Lymphocytes # (1.0-4.8) k/uL APTT 30.7 H (22.0-30.0) sec Chloride (98-107) mmol/L Carbon Dioxide (22-30) mmol/L BUN (9-20) mg/dL Creatinine (0.66-1.25) mg/dL Glucose (74-99) mg/dL POC Glucose (mg/dL) 122 H (70-110) mg/dL Calcium (8.4-10.2) mg/dL Creatine Kinase 97455 H* (55-170) U/L 02/28/23 02/28/23 02/28/23 Range/Units 00:41 04:38 04:38 WBC 12.6 H (3.8-10.6) k/uL RBC 4.21 L (4.30-5.90) m/uL Plt Count 127 L (150-450) k/uL Neutrophils # 11.1 H (1.3-7.7) k/uL Lymphocytes # 0.6 L (1.0-4.8) k/uL APTT (22.0-30.0) sec Chloride 115 H 114 H (98-107) mmol/L Carbon Dioxide 21 L 19 L (22-30) mmol/L BUN 25 H 26 H (9-20) mg/dL Creatinine 0.61 L (0.66-1.25) mg/dL Glucose 104 H 109 H (74-99) mg/dL POC Glucose (mg/dL) (70-110) mg/dL Calcium 7.6 L 7.8 L (8.4-10.2) mg/dL Creatine Kinase 5256 H* (55-170) U/L 02/28/23 02/28/23 Range/Units 04:38 05:52 WBC (3.8-10.6) k/uL RBC (4.30-5.90) m/uL Plt Count (150-450) k/uL Neutrophils # (1.3-7.7) k/uL Lymphocytes # (1.0-4.8) k/uL APTT 57.6 H (22.0-30.0) sec Chloride (98-107) mmol/L Carbon Dioxide (22-30) mmol/L BUN (9-20) mg/dL Creatinine (0.66-1.25) mg/dL Glucose (74-99) mg/dL POC Glucose (mg/dL) 113 H (70-110) mg/dL Calcium (8.4-10.2) mg/dL Creatine Kinase (55-170) U/L Microbiology - Last 24 Hours (Table) 02/24/23 11:10 CSF Gram Stain - Preliminary Cerebral Spinal Fluid CSF Culture - Preliminary 02/25/23 05:19 Blood Culture - Preliminary Blood Assessment and Plan (1) Fever Current Visit: Yes Status: Acute Code(s): R50.9 - FEVER, UNSPECIFIED SNOMED Code(s): 491071661 (2) Pneumonia Current Visit: Yes Status: Acute Code(s): J18.9 - PNEUMONIA, UNSPECIFIED ORGANISM SNOMED Code(s): 279732671 Plan: 1patient with SIRS in this patient with a fever elevated white count tachycardia with significant mental status changes high clinical suspicious for possible encephalitis/meningitis however the patient LP is relatively clear only mildly elevated protein of 86 patient chest x-ray negative for pneumonia urine has been negative mildly elevated liver enzymes and the patient did have evidence of rhabdomyolysis as the patient has been on the floor for more than 12 hours however no evidence of any bruising or injury has been noticed abdominal soft on clinical examination 2- ultrasound of the abdomen sludge versus artifact in the gallbladder no other abnormality noticed 3- hepatitis panel is negative, blood and CSF cultures so far negative and urine culture were negative 4Patient has shown some clinical improvement and will continue with Zosyn and monitor his clinical course closely and son at the bedside and multiple questions concerned were answered Dictation was produced using [employer] dictation software. please excuse any grammatical, word or spelling errors. Time with Patient: Less than 30
--- NOTE | 2023-02-28 17:00 | CT ---
EXAMINATION TYPE: CT brain wo con CT DLP: 1304.4 mGycm, Automated exposure control for dose reduction was used. DATE OF EXAM: 02/28/2023 4:33 PM COMPARISON: 02/23/2023. CLINICAL INDICATION:Male, 77 years old with history of AMS, TECHNIQUE: Brain: Axial CT images of the brain were obtained with coronal and sagittal reformats created and rev iewed. Contrast used: None. Oral contrast used: None. FINDINGS: Brain: Extra-axial spaces: No abnormal extra-axial fluid collections. Ventricular system: Dilatation in proportion to cerebral atrophy. Cerebral parenchyma: Cerebral atrophy. No acute intraparenchymal hemorrhage or mass effect. The adams -white junction is well differentiated. Scattered hypoattenuating areas are seen within the white mat ter. Cerebellum: Unremarkable. Mass effect: No evidence of midline shift. Intracranial vasculature: Atherosclerotic calcifications of the intracranial vessels. Soft tissues: Normal. Calvarium/osseous structures: No depressed skull fracture. Paranasal sinuses and mastoid air cells: Mild scattered paranasal sinus disease. Visualized orbits: Orbital contents are intact. IMPRESSION: 1. No acute intracranial process. 2. Nonspecific white matter changes, likely secondary to chronic small vessel ischemic disease.
[2023-02-28 18:12] LABS: Glucose,Whole Blood 113 mg/dL (70-110)
[2023-02-28 23:45] LABS: Glucose,Whole Blood 91 mg/dL (70-110)
[2023-03-01] MEDS: PIPERACILLIN-TAZOBACTAM 3.375 GM in SODIUM CHLORIDE 0.9% 100 ML IVPB SCH ×4 (00:38→23:51)
[2023-03-01] MEDS: SODIUM CHLORIDE 0.9% 1,000 ML IV SCH ×3 (00:40→23:51)
[2023-03-01] MEDS: HYDROmorphone 1 MG/ML 1 ML SYRINGE IVP PRN ×2 (02:19→13:05)
[2023-03-01 04:43] LABS: HCT 38.7 % (39.0-53.0); HGB 13.1 gm/dL (13.0-17.5); MCH 32.8 pg (25.0-35.0); MCHC 33.7 g/dL (31.0-37.0); MCV 97.2 fL (80.0-100.0); Platelet Count 127 k/uL (150-450); RBC 3.98 m/uL (4.30-5.90); RDW 12.3 % (11.5-15.5); WBC 8.8 k/uL (3.8-10.6)
[2023-03-01 04:57] LABS: African American GFR (CKD) >90 (>60 ml/min/1.73 sqM); Anion Gap 3 mmol/L; Blood Urea Nitrogen 21 mg/dL (9-20); Calcium 7.6 mg/dL (8.4-10.2); Carbon Dioxide 25 mmol/L (22-30); Chloride 116 mmol/L (98-107); Glucose 108 mg/dL (74-99); Non-African American GFR(CKD) >90 (>60 ml/min/1.73 sqM); Potassium 3.2 mmol/L (3.5-5.1); Sodium 144 mmol/L (137-145)
[2023-03-01 05:13] LABS: Creatine Kinase 2080 U/L (55-170)
[2023-03-01] MEDS: POTASSIUM CHLORIDE 10 MEQ in WATER FOR INJECTION 1 100ML.BAG IVPB SCH ×8 (05:56→22:04)
--- NOTE | 2023-03-01 06:44 | XR ---
EXAMINATION TYPE: XR chest 1V portable DATE OF EXAM: 03/01/2023 CLINICAL HISTORY: Difficulty breathing and pneumonia progress study. TECHNIQUE: Single AP portable semiupright view of the chest is obtained. COMPARISON: Chest x-ray from 3 days earlier FINDINGS: Worsening bilateral multifocal increased opacities and small to tiny bilateral pleural eff usions. Cardiac silhouette size is stable and upper limits of normal. Degenerative change left glenoh umeral joint redemonstrated. IMPRESSION: Worsening bilateral multifocal opacities consistent with worsening edema and/or multifoca l acute infiltrates.
[2023-03-01 07:01] LABS: Glucose,Whole Blood 117 mg/dL (70-110)
[2023-03-01] MEDS ORDERED: FUROSEMIDE 10 MG/ML 4 ML VIAL IV STA (08:35)
[2023-03-01] MEDS: PANTOPRAZOLE 40 MG/10 ML VIAL IVP SCH (09:19)
[2023-03-01] MEDS: levETIRAcetam IV 500 MG/5 ML VIAL IVP SCH ×2 (09:19→20:06)
[2023-03-01] MEDS: HEPARIN SOD,PORK IN 0.45% NACL 25,000 UNIT in 0.45% NACL 1 250ML.BAG IV SCH (09:20)
--- NOTE | 2023-03-01 09:28 | PN ---
PROGRESS NOTE SUBJECTIVE: A 77-year-old gentleman with atrial fibrillation with controlled ventricular rate. He is currently free of chest pain or difficulty in breathing and does not have any leg edema. He continues to be confused, but much improved compared to the way he was. PHYSICAL EXAMINATION: VITAL SIGNS: Heart rate is 80 to 90 beats per minute, blood pressure is 140/72, respiratory rate 18. CHEST: Good air entry bilaterally. HEART: First and second heart sounds. No gallop. Has an ejection systolic murmur. ABDOMEN: Soft. EXTREMITIES: Did not reveal any edema. Peripheral pulses are felt. ASSESSMENT: 1. Persistent atrial fibrillation with controlled ventricular rate. 2. Hypertension. PLAN: The patient is on IV heparin. I am going to switch him to Eliquis if he passes his swallow. I will start him on Cozaar 25 mg daily for blood pressure control. MMODL / IJN: [id number] /
--- NOTE | 2023-03-01 10:50 | P.PN ---
Subjective Progress Note Date: 03/01/23 Principal diagnosis: Sepsis and mental status change I am seeing this patient in new consultation today 02/24/2023 after the patient presented to the ER yesterday evening with concerns of altered mental status. Patient is a 77-year-old white male with a limited past medical history. Apparently, the patient's found him down on the ground early yesterday morning confused. His last known well time was the night prior. Nonenhanced brain CT on arrival shows age-related atrophic and chronic small vessel ischemia without any obvious acute cranial process. Initial chest x-ray on arrival showed fullness around the right hilum likely related patient rotation. Underlying infiltrate or mass not excluded. CBC shows leukocytosis with a WBC count of 16, hemoglobin 13.5, hematocrit 39.1, platelets 109,000. BMP shows sodium 136, potassium 3.7, chloride 110, serum bicarb 17, BUN 36, creatinine 1.22, glucose 102. LFTs are mildly elevated. Troponins are 1.66 and 1.9. Ur inalysis not particularly concerning for UTI. Negative for influenza, RSV, COVID-19. Patient was originally admitted to the floor, and was transferred to the ICU last night for tachycardia and hypotension. Yesterday, he was given a total of 2.5 L normal saline bolus. On my evaluation, the patient is lying in bed, extremities are rigid, he is febrile with a t-max of 103 F. He is on 2 L/m nasal cannula, oxygenating around 94%. He is disoriented and unable to provide any meaningful information. He mostly mumbles. I did speak to the patient's daughter, who denies any recent sinus, ear, or pulmonary infections. I am concerned for possible encephalitis or meningitis. I spoke with neurology last night, and updated them on the patient. There is an EEG pending for the morning. Patient is empirically covered with combination of ampicillin, vancomycin, and Rocephin. Infectious disease consult was also placed. Heart rhythm is currently normal sinus on bedside monitor. Blood pressure is normotensive. Normal saline is infusing at 130 ML's per hour. No need for vasopressors at this time. Patient will need a thorough neurological workup. He is being monitored in the intensive care unit in the meantime. Patient was seen and examined today on 02/25/2023, remains in the ICU, spiking temperatures intermittently, he had a T-max of 102.9. Spinal fluid workup so far is negative for bacterial meningitis. However viral meningitis/encephalitis is not entirely ruled out, and workup is still in progress. In the meantime the patient is being followed by many consultants including infectious disease and urology. Apparently his EEG was negative for seizure activity. Labs today showed leukocytosis with WBC of 15.1 hemoglobin is normal electrolytes are normal bicarb is 20 creatinine is 1.7, improved compared to his baseline on admission liver enzymes remain at the time elevated ammonia level is normal. Drug screen was negative. CPK was elevated on admission, no CPK noted today. His pro-calcitonin level 0.31. Ultrasound of the abdomen and pelvis showed sludge in the gallbladder, it also showed hepatomegaly, otherwise limited exam Reevaluated today on 02/26/70, remains in the ICU on 3 L nasal cannula. Patient continues to have poor mental status, seems to be obtunded, at times he may follow simple instructions like wiggling toes but most of the time he doesn't. Patient is snoring and is having episodes of apnea hence ABG was done and showed a pO2 of 82 pCO2 37 pH of 7.35. Continues to have relatively high CPK but improving 43625, renal functioning continues to be about the same. Patient has a low bicarb of 16, and I'm recommending 1 amp of bicarb to be given. So far all the diagnostic workup is nondiagnostic the West Nile virus workup is still pending. Patient did have elevated WBC count elevated pro calcitonin. Mental status is not showing any improvement whatsoever. Neurology is following. Chest x-ray continues to show left basilar atelectasis, strongly doubt pneumonia. Patient remains empirically on antibiotics. He is on Zosyn. Remains on IV fluid at 150 ML per hour in the form of 1.9 normal saline. Patient was reevaluated today on 02/27/2023, patient remains in the ICU, he is on 2 L nasal cannula, his IV fluids remains at 1 50 mL per hour in the form of 0.9 normal saline, patient is scheduled to have an MRI today. Patient seems to be m ore responsive today, at least he is following instructions, his speech however remains quite garbled. He knows that he is in the hospital, he knew that it is 2022, but again his speech is very quite garbled and hard to understand. Considering his presentation I believe this is a significant improvement compared to his mental status upon presentation. CBC showed W Luis is better at 13.8 hemoglobin is 14.4. Basic metabolic profile is normal, renal profile is normal CPK remains a bit elevated but trending down it is over 8000 Patient was seen again on 02/28/2023 patient remains in the ICU, last night he developed an episode of atrial fibrillation with RVR, he is now on Cardizem at 2.5 mg per hour, is also on heparin drip. Remains on IV fluid at 13 0 mL per hour. CPK is down to 5256, mental status is still basically about the same as yesterday, patient seems to comprehend, he knows where he is, he knows the year, but his speech is very garbled. And seems to be very slow. Unable to swallow, hence I'm recommending a nasogastric tube to be placed and start enteral feeding on this patient sometime today. Patient was supposed to have an MRI yesterday, but because of atrial fibrillation and RVR, MRI was canceled overall the patient remains encephalopathic, but slowly improving compared to his baseline upon his initial presentation. Neurology on the case still concerned about the possibility of encephalitis/meningitis and concerned about West Nile virus, workup is still pending in the meantime the patient remains on Zosyn empirically. He is also on Keppra although his EEG showed no evidence of epileptiform focus. Patient was reevaluated today on 03/01/2023, remains on 4 L nasal cannula neurologically the patient is about the same, patient is awake, follows instructions, knows where he is, however his speech remains quite garbled. Remains on Zosyn empirically for presumptive aspiration, chest x-ray today showed worsening bilateral opacities, not clear whether this is a worsening edema or multifocal infiltrates nonetheless I will cut down his IV fluids and I will give the patient a trial of Lasix 40 mg IV push. Patient remains on aspiration precautions, could not have a nasogastric tube placed yesterday. Will cautiously feed as the patient may have some microaspiration labs today showed relatively normal CBC and normal electrolytes and normal renal profile. CPK is down to 2008 Objective - Vital Signs Vital signs: Vital Signs Temp 98.1 F 03/01/23 08:00 Pulse 103 H 03/01/23 09:00 Resp 14 09/24/23 09:00 BP 159/89 03/01/23 09:00 Pulse Ox 98 03/01/23 09:00 FiO2 28 02/26/23 10:00 Intake & Output 02/28/23 03/01/23 03/01/23 18:59 06:59 18:59 Intake Total 2037.258 1260 225 Output Total 700 1310 460 Balance 1337.258 -50 -235 Weight 111 kg 107.1 kg Intake: IV 1760 1010 225 Piperacillin-Tazobactam 3 200 100 50 .375 gm In Sodium Chloride 0.9% 100 ml @ 25 mls/hr IVPB Q8HR [facility] Rx# :[id number] Potassium Chloride 10 meq 100 In Water For Injection 1 100ml.bag @ 100 mls/hr IVPB Q1HR [facility] Rx#: [id number] Sodium Chloride 0.9% 1, 1560 910 75 000 ml @ 75 mls/hr IV . [id number] [facility] Rx#:[id number] Intake, IV Titration 277.258 250 Amount Diltiazem 125 mg In 19.875 Sodium Chloride 0.9% 100 ml @ Per Protocol IV .Q0M [facility] Rx#:[id number] Heparin Sod,Pork in 0.45% 157.383 250 NaCl 25,000 unit In 0.45 % NaCl 1 250ml.bag @ 9. 355 UNITS/KG/HR 10 mls/hr IV .Q24H [facility] Rx#: [id number] Potassium Chloride 10 meq 100 In Water For Injection 1 100ml.bag @ 100 mls/hr IVPB Q1H [facility] Rx#: [id number] Output: Urine 700 1310 460 Other: Voiding Method Indwelling Catheter Indwelling Catheter - Exam GENERAL EXAM: Awake follows instructions but his speech remains garbled HEAD: Normocephalic and atraumatic EYES: Normal reaction of pupils, equal size. NOSE: Clear with pink turbinates. THROAT: No erythema or exudates. NECK: No masses, no JVD. CHEST: No chest wall deformity. LUNGS: Equal air entry fine crackles at the bases CVS: S1 and S2 normal with no audible murmur, regular rhythm. No extra heart sounds ABDOMEN: Obese soft nontender no megaly no rebound no guarding SPINE: No scoliosis or deformity SKIN: No rashes CENTRAL NERVOUS SYSTEM: follows instructions, garbled speech. EXTREMITIES: There is no peripheral edema, clubbing, or cyanosis. Peripheral pulses are intact. - Labs CBC & Chem 7: 03/01/23 04:26 03/01/23 04:26 Labs: Abnormal Lab Results - Last 24 Hours (Table) 02/28/23 03/01/23 03/01/23 Range/Units 18:11 04:26 04:26 RBC (4.30-5.90) m/uL Hct (39.0-53.0) % Plt Count (150-450) k/uL APTT 59.2 H (22.0-30.0) sec Potassium 3.2 L (3.5-5.1) mmol/L Chloride 116 H (98-107) mmol/L BUN 21 H (9-20) mg/dL Creatinine 0.56 L (0.66-1.25) mg/dL Glucose 108 H (74-99) mg/dL POC Glucose (mg/dL) 113 H (70-110) mg/dL Calcium 7.6 L (8.4-10.2) mg/dL Creatine Kinase 2080 H* (55-170) U/L 03/01/23 03/01/23 Range/Units 04:26 06:59 RBC 3.98 L (4.30-5.90) m/uL Hct 38.7 L (39.0-53.0) % Plt Count 127 L (150-450) k/uL APTT (22.0-30.0) sec Potassium (3.5-5.1) mmol/L Chloride (98-107) mmol/L BUN (9-20) mg/dL Creatinine (0.66-1.25) mg/dL Glucose (74-99) mg/dL POC Glucose (mg/dL) 117 H (70-110) mg/dL Calcium (8.4-10.2) mg/dL Creatine Kinase (55-170) U/L Microbiology - Last 24 Hours (Table) 02/23/23 12:15 Blood Culture - Final Blood 02/23/23 12:30 Blood Culture - Final Blood 02/24/23 11:10 CSF Gram Stain - Final Cerebral Spinal Fluid CSF Culture - Final 02/25/23 05:19 Blood Culture - Preliminary Blood Assessment and Plan Assessment: Impression: Suspect sepsis, exact source is not clear, could still be [employer] related, possible viral encephalitis, further workup is pending. West Nile virus workup is pending Altered mental status, being addressed by neurology on the case. Acute febrile illness and sepsis, no obvious infectious process identified yet, all cultures have been negative so far. Leukocytosis, resolved, possible aspiration pneumonia. Acute rhabdomyolysis, significantly elevated CPK, improving with hydration, CPK is down to 2080 Elevated LFTs, viral studies are pending, ultrasound showed hepatomegaly Elevated troponins, possibly related to supply/demand mismatch Recommendation: Continue antibiotics empirically. Continue to monitor for possible seizures although his EEG showed no evidence of seizure focus West Nile virus workup is still pending Continue hydration, however considering his chest x-ray today, we'll recommend a touch of diuresis, and cut down his IV fluids to 75 mL per hour Continue GI and DVT prophylaxis We will keep the patient in the ICU We will continue to follow. Time with Patient: Less than 30
[2023-03-01 11:57] LABS: Glucose,Whole Blood 102 mg/dL (70-110)
--- NOTE | 2023-03-01 12:00 | P.PN ---
Subjective Progress Note Date: 03/01/23 77-year-old white male the patient's found him down on the ground * Nonenhanced brain CT on arrival shows age-related atrophic and chronic small vessel ischemia without any obvious acute cranial process. * Initial chest x-ray on arrival showed fullness around the right hilum likely related patient rotation. Underlying infiltrate or mass not excluded. CBC shows leukocytosis with a WBC count of 16, hemoglobin 13.5, hematocrit 39.1, platelets 109,000. BMP shows sodium 136, potassium 3.7, chloride 110, serum bicarb 17, BUN 36, creatinine 1.22, glucose 102. LFTs are mildly elevated. Troponins are 1.66 and 1.9. Urinalysis not particularly concerning for UTI. Negative for influenza, RSV, COVID-19. * Patient was originally admitted to the floor, and was transferred to the ICU for tachycardia and hypotension. * on 02/25/2023, remains in the ICU, spiking temperatures intermittently, he had a T-max of 102.9. Spinal fluid workup so far is negative for bacterial meningitis. However viral meningitis/encephalitis is not entirely ruled out, and workup is still in progress. * on 02/26, remains in the ICU on 3 L nasal cannula. Patient continues to have poor mental status, seems to be obtunded all the diagnostic workup is nondiagnostic the West Nile virus workup pending. * on 02/27, patient remains in the ICU, he is on 2 L nasal cannula, mentation continued to wax and wane * On 02/28 patient remains in ICU had episode of A. fib RVR started on IV Cardizem and heparin drip. Mental status continued to remain disoriented and minimally arousable MRI was canceled secondary to episode of A. fib RVR. Neurology on the case following infectious disease following. Review off system limited secondary to mentation * 03/01; patient seen and evaluated bedside, mentation has improved slightly heart rate better controlled. Continue patient on IV heparin drip, cardiology following continue current antibiotic. CPK levels trending down. On verbal command patient does move upper and lower extremities however still nonverbal Objective - Vital Signs Vital signs: Vital Signs Temp 98.1 F 03/01/23 08:00 Pulse 84 03/01/23 11:00 Resp 18 03/01/23 11:00 BP 115/88 03/01/23 11:00 Pulse Ox 97 03/01/23 11:00 FiO2 28 02/26/23 10:00 Intake & Output 02/28/23 03/01/23 03/01/23 18:59 06:59 18:59 Intake Total 2037.258 1260 225 Output Total 700 1310 460 Balance 1337.258 -50 -235 Weight 111 kg 107.1 kg Intake: IV 1760 1010 225 Piperacillin-Tazobactam 3 200 100 50 .375 gm In Sodium Chloride 0.9% 100 ml @ 25 mls/hr IVPB Q8HR [facility] Rx# :[id number] Potassium Chloride 10 meq 100 In Water For Injection 1 100ml.bag @ 100 mls/hr IVPB Q1HR [facility] Rx#: [id number] Sodium Chloride 0.9% 1, 1560 910 75 000 ml @ 75 mls/hr IV . [id number] [facility] Rx#:[id number] Intake, IV Titration 277.258 250 Amount Diltiazem 125 mg In 19.875 Sodium Chloride 0.9% 100 ml @ Per Protocol IV .Q0M [facility] Rx#:[id number] Heparin Sod,Pork in 0.45% 157.383 250 NaCl 25,000 unit In 0.45 % NaCl 1 250ml.bag @ 9. 355 UNITS/KG/HR 10 mls/hr IV .Q24H [facility] Rx#: [id number] Potassium Chloride 10 meq 100 In Water For Injection 1 100ml.bag @ 100 mls/hr IVPB Q1H [facility] Rx#: [id number] Output: Urine 700 1310 460 Other: Voiding Method Indwelling Catheter Indwelling Catheter Indwelling Catheter - Exam PHYSICAL EXAMINATION: GENERAL: The patient is alert and oriented x0 , ill appearance HEENT: Pupils are round and equally reacting to light. CARDIOVASCULAR: S1 and S2 present. Irregular tachycardia PULMONARY: She is breath sounds bilaterally ABDOMEN: Soft, nontender, nondistended, normoactive bowel sounds. MUSCULOSKELETAL: No joint swelling or deformity. EXTREMITIES: No cyanosis, clubbing, or pedal edema. NEUROLOGICAL: Patient is disoriented , following commands as of 03/01 moving arms and legs when asked - Labs CBC & Chem 7: 03/01/23 04:26 03/01/23 04:26 Labs: Abnormal Lab Results - Last 24 Hours (Table) 02/28/23 03/01/23 03/01/23 Range/Units 18:11 04:26 04:26 RBC (4.30-5.90) m/uL Hct (39.0-53.0) % Plt Count (150-450) k/uL APTT 59.2 H (22.0-30.0) sec Potassium 3.2 L (3.5-5.1) mmol/L Chloride 116 H (98-107) mmol/L BUN 21 H (9-20) mg/dL Creatinine 0.56 L (0.66-1.25) mg/dL Glucose 108 H (74-99) mg/dL POC Glucose (mg/dL) 113 H (70-110) mg/dL Calcium 7.6 L (8.4-10.2) mg/dL Creatine Kinase 2080 H* (55-170) U/L 03/01/23 03/01/23 Range/Units 04:26 06:59 RBC 3.98 L (4.30-5.90) m/uL Hct 38.7 L (39.0-53.0) % Plt Count 127 L (150-450) k/uL APTT (22.0-30.0) sec Potassium (3.5-5.1) mmol/L Chloride (98-107) mmol/L BUN (9-20) mg/dL Creatinine (0.66-1.25) mg/dL Glucose (74-99) mg/dL POC Glucose (mg/dL) 117 H (70-110) mg/dL Calcium (8.4-10.2) mg/dL Creatine Kinase (55-170) U/L Microbiology - Last 24 Hours (Table) 02/23/23 12:15 Blood Culture - Final Blood 02/23/23 12:30 Blood Culture - Final Blood 02/24/23 11:10 CSF Gram Stain - Final Cerebral Spinal Fluid CSF Culture - Final 02/25/23 05:19 Blood Culture - Preliminary Blood Assessment and Plan Assessment: Assessment and plan * Acute encephalopathy multifactorial possible viral encephalitis * Sepsis with underlying pneumonia * Acute rhabdomyolysis * Transaminitis * New onset A. fib with rapid ventricular response * Elevated troponin type II TN * In regards to encephalopathy patient seen by infectious disease, neurology. Lumbar puncture completed. West Nile virus workup pending. Patient was on acyclovir which has been discontinued since HSV workup negative. Continue patient on Zosyn. Continue patient on IV Keppra further recommendations from neurology * In regards to rhabdomyolysis continue patient on fluid resuscitation and follow up on CPK levels, trending down * In regards to new onset A. fib and RVR continue IV heparin, continue Cardizem drip cardiology following, wean off * Prognosis remains guarded care plan discussed with at bedside on 02/28
[2023-03-01] MEDS: LOSARTAN 25 MG TAB PO SCH (12:33)
[2023-03-01] MEDS: DILTIAZEM 125 MG in SODIUM CHLORIDE 0.9% 100 ML IV SCH ×2 (14:30→22:08)
[2023-03-01] MEDS ORDERED: DEXTROSE 5% IN WATER 100 ML with AMIODARONE 150 MG IV ONE (15:00)
[2023-03-01] MEDS ORDERED: NALOXONE 0.4 MG/ML 1 ML VIAL ONE (15:12)
[2023-03-01] MEDS ORDERED: AMIODARONE 360 MG in DEXTROSE 5% IN WATER 200 ML IV ONE ×2 (15:15)
[2023-03-01 15:55] LABS: Potassium 3.1 mmol/L (3.5-5.1)
--- NOTE | 2023-03-01 17:10 | P.PN ---
Subjective Progress Note Date: 03/01/23 Principal diagnosis: Fever Patient is a 77-year-old male presenting to the hospital y after the patient was found to be unresponsive by the , patient has been febrile initial testing negative including LP which was only mildly elevated protein. On today's evaluation that is 03/01/2023, the patient contiues to be afebrile, the patient is breathing comfortably on 2 L nasal cannula oxygen, the patient slightly more awake and alert per daughter at bedside and he responded to his name, the patient is hemodynamically stable not requiring any pressor support, no vomiting or diarrhea has been reported patient white count is normal at 8 , creatinine 0.68, pro-calcitonin 0.31, urine is negative urine drug screen was negative influenza and RSV covid negative, urine for Legionella antigen negative, CSF studies were negative except mildly elevated protein Objective - Vital Signs Vital signs: Vital Signs Temp 98.1 F 03/01/23 08:00 Pulse 103 H 03/01/23 09:00 Resp 14 03/01/23 09:00 BP 159/89 03/01/23 09:00 Pulse Ox 98 03/01/23 09:00 FiO2 28 02/26/23 10:00 Intake & Output 02/28/23 03/01/23 03/01/23 18:59 06:59 18:59 Intake Total 2037.258 1260 225 Output Total 700 1310 460 Balance 1337.258 -50 -235 Weight 111 kg 107.1 kg Intake: IV 1760 1010 225 Piperacillin-Tazobactam 3 200 100 50 .375 gm In Sodium Chloride 0.9% 100 ml @ 25 mls/hr IVPB Q8HR [facility] Rx# :[id number] Potassium Chloride 10 meq 100 In Water For Injection 1 100ml.bag @ 100 mls/hr IVPB Q1HR [facility] Rx#: [id number] Sodium Chloride 0.9% 1, 1560 910 75 000 ml @ 75 mls/hr IV . [id number] [facility] Rx#:[id number] Intake, IV Titration 277.258 250 Amount Diltiazem 125 mg In 19.875 Sodium Chloride 0.9% 100 ml @ Per Protocol IV .Q0M [facility] Rx#:[id number] Heparin Sod,Pork in 0.45% 157.383 250 NaCl 25,000 unit In 0.45 % NaCl 1 250ml.bag @ 9. 355 UNITS/KG/HR 10 mls/hr IV .Q24H [facility] Rx#: [id number] Potassium Chloride 10 meq 100 In Water For Injection 1 100ml.bag @ 100 mls/hr IVPB Q1H [facility] Rx#: [id number] Output: Urine 700 1310 460 Other: Voiding Method Indwelling Catheter Indwelling Catheter - Exam GENERAL DESCRIPTION: An elderly male lying in bed in no distress RESPIRATORY SYSTEM: Unlabored breathing , coarse breath sounds bilaterally HEART: S1 S2 regular rate and rhythm , ABDOMEN: Soft , no tenderness EXTREMITIES: No edema feet - Labs CBC & Chem 7: 03/01/23 04:26 03/01/23 15:14 Labs: Abnormal Lab Results - Last 24 Hours (Table) 02/28/23 03/01/23 03/01/23 Range/Units 18:11 04:26 04:26 RBC (4.30-5.90) m/uL Hct (39.0-53.0) % Plt Count (150-450) k/uL APTT 59.2 H (22.0-30.0) sec Potassium 3.2 L (3.5-5.1) mmol/L Chloride 116 H (98-107) mmol/L BUN 21 H (9-20) mg/dL Creatinine 0.56 L (0.66-1.25) mg/dL Glucose 108 H (74-99) mg/dL POC Glucose (mg/dL) 113 H (70-110) mg/dL Calcium 7.6 L (8.4-10.2) mg/dL Creatine Kinase 2080 H* (55-170) U/L 03/01/23 03/01/23 Range/Units 04:26 06:59 RBC 3.98 L (4.30-5.90) m/uL Hct 38.7 L (39.0-53.0) % Plt Count 127 L (150-450) k/uL APTT (22.0-30.0) sec Potassium (3.5-5.1) mmol/L Chloride (98-107) mmol/L BUN (9-20) mg/dL Creatinine (0.66-1.25) mg/dL Glucose (74-99) mg/dL POC Glucose (mg/dL) 117 H (70-110) mg/dL Calcium (8.4-10.2) mg/dL Creatine Kinase (55-170) U/L Microbiology - Last 24 Hours (Table) 02/23/23 12:15 Blood Culture - Final Blood 02/23/23 12:30 Blood Culture - Final Blood 02/24/23 11:10 CSF Gram Stain - Final Cerebral Spinal Fluid CSF Culture - Final 02/25/23 05:19 Blood Culture - Preliminary Blood Assessment and Plan (1) Fever Current Visit: Yes Status: Acute Code(s): R50.9 - FEVER, UNSPECIFIED SNOMED Code(s): 891180715 (2) Pneumonia Current Visit: Yes Status: Acute Code(s): J18.9 - PNEUMONIA, UNSPECIFIED ORGANISM SNOMED Code(s): 049667196 Plan: 1patient with SIRS in this patient with a fever elevated white count tachycardia with significant mental status changes high clinical suspicious for possible encephalitis/meningitis however the patient LP is relatively clear only mildly elevated protein of 86 patient chest x-ray negative for pneumonia urine has been negative mildly elevated liver enzymes and the patient did have evidence of rhabdomyolysis as the patient has been on the floor for more than 12 hours however no evidence of any bruising or injury has been noticed abdominal soft on clinical examination 2- ultrasound of the abdomen sludge versus artifact in the gallbladder no other abnormality noticed 3- hepatitis panel is negative, blood and CSF cultures so far negative and urine culture were negative 4Patient has shown some clinical improvement, Fever has resolved and white count has normalized 5- we will continue with Zosyn and monitor his clinical course closely Daughter at the bedside and multiple questions concerned were answered Dictation was produced using [employer] dictation software. please excuse any grammatical, word or spelling errors. Time with Patient: Less than 30
--- NOTE | 2023-03-01 17:42 | EEG ---
ELECTROENCEPHALOGRAM REPORT PREAMBLE: This is a 77-year-old male with severe encephalopathy. Rule out encephalitis. This is a followup study. EEG FINDINGS: This is a 21-channel digital EEG recorded with video component, utilizing 10/20 international system with referential and bipolar montage. Background consists of moderately well-developed and regulated, predominantly moderate amplitude 5 to 6 Hz theta activity intermixed with some delta and some beta activity seen in bihemispheric region. Background does not seem to be reactive to eye opening or closing. Photic driving response was not clearly seen. The patient was noted to be is drowsy and also stage 2 sleep in some part of the study with presence of sleep spindles. No focal or generalized epileptiform activity was seen. IMPRESSION: This is an abnormal EEG due to background slowing of moderate degree. This is suggestive of generalized cerebral dysfunction as can be seen with toxic metabolic encephalopathy or related to diffuse structural brain abnormality. When compared to the EEG from 02/24/2023, the background seems to have gotten slightly more worse. Followup EEG recommended as clinically indicated. MMODL / IJN: [id number] /
[2023-03-01 17:58] LABS: Glucose,Whole Blood 106 mg/dL (70-110)
[2023-03-01] MEDS ORDERED: AMIODARONE 450 MG in DEXTROSE 5% IN WATER 250 ML IV SCH ×2 (21:00)
[2023-03-01 23:48] LABS: Glucose,Whole Blood 112 mg/dL (70-110)
[2023-03-02] MEDS: POTASSIUM CHLORIDE 10 MEQ in WATER FOR INJECTION 1 100ML.BAG IVPB SCH ×4 (01:40→06:19)
[2023-03-02] MEDS: HEPARIN SOD,PORK IN 0.45% NACL 25,000 UNIT in 0.45% NACL 1 250ML.BAG IV SCH (04:50)
[2023-03-02 05:20] LABS: ALT 69 U/L (4-49); AST 82 U/L (17-59); African American GFR (CKD) >90 (>60 ml/min/1.73 sqM); Albumin 2.7 g/dL (3.5-5.0); Alkaline Phosphatase 45 U/L (38-126); Anion Gap 5 mmol/L; Blood Urea Nitrogen 21 mg/dL (9-20); Calcium 7.8 mg/dL (8.4-10.2); Carbon Dioxide 29 mmol/L (22-30); Chloride 107 mmol/L (98-107); Creatine Kinase 719 U/L (55-170); Glucose 109 mg/dL (74-99); Non-African American GFR(CKD) >90 (>60 ml/min/1.73 sqM); Potassium 3.7 mmol/L (3.5-5.1); Sodium 141 mmol/L (137-145); Total Bilirubin 1.5 mg/dL (0.2-1.3); Total Protein 5.8 g/dL (6.3-8.2)
[2023-03-02 05:25] LABS: HCT 42.1 % (39.0-53.0); HGB 14.2 gm/dL (13.0-17.5); MCH 32.5 pg (25.0-35.0); MCHC 33.8 g/dL (31.0-37.0); MCV 96.3 fL (80.0-100.0); Platelet Count 160 k/uL (150-450); RBC 4.37 m/uL (4.30-5.90); RDW 12.3 % (11.5-15.5); WBC 9.7 k/uL (3.8-10.6)
[2023-03-02 05:36] LABS: Glucose,Whole Blood 109 mg/dL (70-110)
--- NOTE | 2023-03-02 05:58 | P.PN ---
Subjective Progress Note Date: 02/28/23 Patient was seen for a follow-up. Patient's and patient seeing her daughter were present today. Patient could not have MRI today because he was not stable to go for MRI without drip. It'll be done on Thursday. Patient has received Dilaudid 1 mg at 9:30 AM. Patient's family mentions that he slightly more responsive, trying to say some words, but mumbles. She said that when her mother arrived (patient's ), she said "hi mom". And patient at that time also said "hi mom". Otherwise not making legible responses. At present patient appears to have very abnormal gaze, looking up or to the si tanisha andrade stare. Patient's family has mentioned that patient does work in the yard, cuts his own grass, and on the weekend, the event to watch the [employer] football game. He regularly goes out for a walk with his . He may have been exposed to mosquitoes. Patient was fine until Thursday when he stopped talking and presented to the ER. Objective - Vital Signs Vital signs: Vital Signs Temp 98.0 F 02/28/23 12:00 Pulse 68 02/28/23 15:00 Resp 20 02/28/23 15:00 BP 114/62 02/28/23 15:00 Pulse Ox 97 02/28/23 15:00 FiO2 28 02/26/23 10:00 Intake & Output 02/27/23 02/28/23 02/28/23 18:59 06:59 18:59 Intake Total 1760 2200.136 1639.258 Output Total 1090 630 550 Balance 670 1338.500 997.258 Weight 111 kg 111 kg Intake: IV 1630 1635 1270 Piperacillin-Tazobactam 3 200 75 100 .375 gm In Sodium Chloride 0.9% 100 ml @ 25 mls/hr IVPB Q8HR [facility] Rx# :[id number] Sodium Chloride 0.9% 1, 1430 1560 1170 000 ml @ 130 mls/hr IV . Q7H42M [facility] Rx#:[id number] Intake, IV Titration 130 333.500 277.258 Amount Diltiazem 125 mg In 131.500 19.875 Sodium Chloride 0.9% 100 ml @ Per Protocol IV .Q0M [facility] Rx#:[id number] Heparin Sod,Pork in 0.45% 102 157.383 NaCl 25,000 unit In 0.45 % NaCl 1 250ml.bag @ 9. 355 UNITS/KG/HR 10 mls/hr IV .Q24H [facility] Rx#: [id number] Potassium Chloride 10 meq 100 100 In Water For Injection 1 100ml.bag @ 100 mls/hr IVPB Q1H [facility] Rx#: [id number] Sodium Chloride 0.9% 1, 130 000 ml @ 130 mls/hr IV . Q7H42M [facility] Rx#:[id number] Output: Urine 1090 630 550 Other: Voiding Method Indwelling Catheter Indwelling Catheter Indwelling Catheter - Exam Patient is obviously encephalopathic. Pupils are equal, round and reacting. Visual myers could not be tested. Face is symmetric. Patient did not cooperate with muscle strength testing. Patient becomes very responsive to movement of the upper extremities because of severe pain in the shoulder from previous shoulder issues. He gives an obvious "unpleasant look" in his eyes. He was noticed to gaze upward's and then to the left side. Some trembling of the left hand was noticed. He was almost as if having a blank stare at times. - Labs CBC & Chem 7: 03/02/23 04:14 03/02/23 04:14 Labs: Abnormal Lab Results - Last 24 Hours (Table) 02/27/23 02/27/23 02/27/23 Range/Units 10:51 18:54 23:04 WBC (3.8-10.6) k/uL RBC (4.30-5.90) m/uL Plt Count (150-450) k/uL Neutrophils # (1.3-7.7) k/uL Lymphocytes # (1.0-4.8) k/uL APTT 30.7 H (22.0-30.0) sec Chloride (98-107) mmol/L Carbon Dioxide (22-30) mmol/L BUN (9-20) mg/dL Creatinine (0.66-1.25) mg/dL Glucose (74-99) mg/dL POC Glucose (mg/dL) 122 H (70-110) mg/dL Calcium (8.4-10.2) mg/dL Creatine Kinase 52811 H* (55-170) U/L 02/28/23 02/28/23 02/28/23 Range/Units 00:41 04:38 04:38 WBC 12.6 H (3.8-10.6) k/uL RBC 4.21 L (4.30-5.90) m/uL Plt Count 127 L (150-450) k/uL Neutrophils # 11.1 H (1.3-7.7) k/uL Lymphocytes # 0.6 L (1.0-4.8) k/uL APTT (22.0-30.0) sec Chloride 115 H 114 H (98-107) mmol/L Carbon Dioxide 21 L 19 L (22-30) mmol/L BUN 25 H 26 H (9-20) mg/dL Creatinine 0.61 L (0.66-1.25) mg/dL Glucose 104 H 109 H (74-99) mg/dL POC Glucose (mg/dL) (70-110) mg/dL Calcium 7.6 L 7.8 L (8.4-10.2) mg/dL Creatine Kinase 5256 H* (55-170) U/L 02/28/23 02/28/23 Range/Units 04:38 05:52 WBC (3.8-10.6) k/uL RBC (4.30-5.90) m/uL Plt Count (150-450) k/uL Neutrophils # (1.3-7.7) k/uL Lymphocytes # (1.0-4.8) k/uL APTT 57.6 H (22.0-30.0) sec Chloride (98-107) mmol/L Carbon Dioxide (22-30) mmol/L BUN (9-20) mg/dL Creatinine (0.66-1.25) mg/dL Glucose (74-99) mg/dL POC Glucose (mg/dL) 113 H (70-110) mg/dL Calcium (8.4-10.2) mg/dL Creatine Kinase (55-170) U/L Microbiology - Last 24 Hours (Table) 02/25/23 05:19 Blood Culture - Preliminary Blood 02/24/23 11:10 CSF Gram Stain - Preliminary Cerebral Spinal Fluid CSF Culture - Preliminary Assessment and Plan Assessment: * Altered mental status, acute onset with high fevers, and severe encephalopat hy, nuchal and generalized rigidity and some tremulousness. Rule out encephalitis, meningitis. Concerning for West Nile virus. * Acute rhabdomyolysis * Elevated cardiac enzymes * New onset atrial fibrillation currently on heparin IV drip. * History of bilateral shoulder pain/arthritis * History of bilateral knee replacement. Plan: * MRI cannot be done until Thursday. Stat CT head was performed, which revealed no acute intracranial process. Nonspecific white matter changes, likely secondary to chronic small vessel ischemic disease. I personally reviewed CT head, agree with the findings. * On my examination patient appears slightly worse, although family believes that he is slightly better, and he slightly out because he received Dilaudid earlier. * I was considering decreasing dose of Keppra to help with arousal, but with current abnormal examination, we will continue same dose of Keppra. We will check stat EEG in the morning. * CSF performed 02/24/2023 was colorless and clear. CSF glucose 52, protein 86 (12-60). WBC count 4, RBCs 358. Comprehensive viral detection negative. * Patient is currently on Zosyn for possible pneumonia. ID on board. * Initial EEG revealed background slowing and disorganization of mild degree suggestive of encephalopathy. There is no epileptiform activity. * Continue Keppra 750 mg twice a day for now. * Await West Nile virus serology from CSF. * Cardiology on board for new onset atrial fibrillation. Patient currently on heparin drip. * Repeat CPK improved 5256 as of this morning. Follow the trend. * Await MRI of the brain with and without contrast. * Discussed with patient's daughter in detail.
--- NOTE | 2023-03-02 06:08 | P.PN ---
Subjective Progress Note Date: 03/01/23 Patient was seen for a follow-up. Patient's older daughter, and patient's 2 sons were present today. Patient's daughter believes that he was much more awake earlier today, with eyes were more widely open. He did not talk, but did new walked was around. Looking at the family more obviously. Patient's family has mentioned that patient does work in the yard, cuts his own grass, and on the Day weekend, the event to watch the grandson's football game. He regularly goes out for a walk with his . He may have been exposed to mosquitoes. Patient was fine until Thursday when he stopped talking and presented to the ER. Objective - Vital Signs Vital signs: Vital Signs Temp 98.4 F 03/01/23 16:00 Pulse 124 H 03/01/23 17:05 Resp 18 03/01/23 17:05 BP 138/109 03/01/23 17:05 Pulse Ox 96 03/01/23 17:05 FiO2 40 03/01/23 16:00 Intake & Output 02/28/23 03/01/23 03/01/23 18:59 06:59 18:59 Intake Total 2037.258 1260 900 Output Total 700 1310 4650 Balance 1337. Weight 111 kg 107.1 kg Intake: IV 1760 1010 900 Piperacillin-Tazobactam 3 200 100 150 .375 gm In Sodium Chloride 0.9% 100 ml @ 25 mls/hr IVPB Q8HR [facility] Rx# :[id number] Potassium Chloride 10 meq 300 In Water For Injection 1 100ml.bag @ 100 mls/hr IVPB Q1HR [facility] Rx#: [id number] Sodium Chloride 0.9% 1, 1560 910 450 000 ml @ 75 mls/hr IV . [id number] [facility] Rx#:[id number] Intake, IV Titration 277.258 250 0 Amount Diltiazem 125 mg In 19.875 0 Sodium Chloride 0.9% 100 ml @ Per Protocol IV .Q0M [facility] Rx#:[id number] Heparin Sod,Pork in 0.45% 157.383 250 NaCl 25,000 unit In 0.45 % NaCl 1 250ml.bag @ 9. 355 UNITS/KG/HR 10 mls/hr IV .Q24H [facility] Rx#: [id number] Potassium Chloride 10 meq 100 In Water For Injection 1 100ml.bag @ 100 mls/hr IVPB Q1H [facility] Rx#: [id number] Output: Urine 700 1310 4650 Other: Voiding Method Indwelling Catheter Indwelling Catheter Indwelling Catheter - Exam Patient is obviously encephalopathic. Pupils are equal, round and reacting. Visual myers could not be tested. Face is symmetric. Patient did not cooperate with muscle strength testing. Patient becomes very responsive to movement of the upper extremities because of severe pain in the shoulder from previous shoulder issues. He gives an obvious "unpleasant look" in his eyes. - Labs CBC & Chem 7: 03/02/23 04:14 03/02/23 04:14 Labs: Abnormal Lab Results - Last 24 Hours (Table) 02/28/23 03/01/23 03/01/23 Range/Units 18:11 04:26 04:26 RBC (4.30-5.90) m/uL Hct (39.0-53.0) % Plt Count (150-450) k/uL APTT 59.2 H (22.0-30.0) sec Potassium 3.2 L (3.5-5.1) mmol/L Chloride 116 H (98-107) mmol/L BUN 21 H (9-20) mg/dL Creatinine 0.56 L (0.66-1.25) mg/dL Glucose 108 H (74-99) mg/dL POC Glucose (mg/dL) 113 H (70-110) mg/dL Calcium 7.6 L (8.4-10.2) mg/dL AST (17-59) U/L ALT (4-49) U/L Creatine Kinase 2080 H* (55-170) U/L 03/01/23 03/01/23 03/01/23 Range/Units 04:26 06:59 15:14 RBC 3.98 L (4.30-5.90) m/uL Hct 38.7 L (39.0-53.0) % Plt Count 127 L (150-450) k/uL APTT (22.0-30.0) sec Potassium 3.1 L (3.5-5.1) mmol/L Chloride (98-107) mmol/L BUN (9-20) mg/dL Creatinine (0.66-1.25) mg/dL Glucose (74-99) mg/dL POC Glucose (mg/dL) 117 H (70-110) mg/dL Calcium (8.4-10.2) mg/dL AST 108 H (17-59) U/L ALT 76 H (4-49) U/L Creatine Kinase (55-170) U/L Microbiology - Last 24 Hours (Table) 02/23/23 12:15 Blood Culture - Final Blood 02/23/23 12:30 Blood Culture - Final Blood 02/24/23 11:10 CSF Gram Stain - Final Cerebral Spinal Fluid CSF Culture - Final Assessment and Plan Assessment: * Altered mental status, acute onset with high fevers, and severe encephalopathy, nuchal and generalized rigidity and some tremulousness. Rule out encephalitis, meningitis. Concerning for West Nile virus. * Acute metabolic encephalopathy likely from severe pneumonia * SIRS, pneumonia * Acute rhabdomyolysis, resolving * Elevated cardiac enzymes * New onset atrial fibrillation currently on heparin IV drip. * History of bilateral shoulder pain/arthritis * History of bilateral knee replacement. Plan: * MRI cannot be done until Thursday. Stat CT head was performed 02/28/2023 r evealed no acute intracranial process. Nonspecific white matter changes, likely secondary to chronic small vessel ischemic disease. I personally reviewed CT head, agree with the findings. * Stat EEG performed today was abnormal due to background slowing of moderate degree consistent with encephalopathy. No epileptiform activity was seen. When compared to the initial EEG from 02/24/2023, the background seems to have gotten worse. * Chest x-ray performed today revealed worsening bilateral multifocal opacities consistent with worsening edema and/or multifocal acute infiltrates. This is likely the cause of worsening of encephalopathy noted on EEG. Pulmonary, ID and cardiology on on board. * CSF performed 02/24/2023 was colorless and clear. CSF glucose 52, protein 86 (12-60). WBC count 4, RBCs 358. Comprehensive viral detection negative. * Patient is currently on Zosyn for possible pneumonia. * Initial EEG revealed background slowing and disorganization of mild degree suggestive of encephalopathy. There is no epileptiform activity. * Continue Keppra 750 mg twice a day for now. May start tapering off Keppra, when mentation improves. Would not recommend keeping it long-term. * Await West Nile virus serology from CSF. * Cardiology on board for new onset atrial fibrillation. Patient currently on heparin drip. * Repeat CPK improved 5256 as of this morning. Follow the trend. * Await MRI of the brain with and without contrast. * Discussed with patient's daughter and sons in detail. * Dr. Jose G Lopez Will resume neurology service from the morning.
[2023-03-02] MEDS: PANTOPRAZOLE 40 MG/10 ML VIAL IVP SCH (07:46)
[2023-03-02] MEDS: PIPERACILLIN-TAZOBACTAM 3.375 GM in SODIUM CHLORIDE 0.9% 100 ML IVPB SCH ×2 (07:48→16:25)
[2023-03-02] MEDS: levETIRAcetam IV 500 MG/5 ML VIAL IVP SCH ×2 (07:48→21:10)
[2023-03-02] MEDS: SODIUM CHLORIDE 0.9% 1,000 ML IV SCH ×2 (07:49→09:24)
--- NOTE | 2023-03-02 08:01 | XR ---
EXAMINATION TYPE: XR chest 1V portable DATE OF EXAM: 03/02/2023 5:54 AM CLINICAL INDICATION:Male, 77 years old with history of possible aspiration pneumonia; [facility] COMPARISON: Chest radiographs from 03/01/2023 TECHNIQUE: XR chest 1V portable Frontal view of the chest. FINDINGS: Lungs/Pleura: Improved aeration of lungs on today's exam with persistent airspace opacities scattered throughout the lungs. No evidence of pneumothorax or large pleural effusion. Pulmonary vascularity: Unremarkable. Heart/mediastinum: Cardiomediastinal silhouette is unremarkable. Musculoskeletal: No acute osseous pathology. Other findings: None Lines/Tubes: IMPRESSION: Degeneration of the lungs in today's exam. There remains minimal airspace opacities.
[2023-03-02] MEDS: LOSARTAN 25 MG TAB PO SCH (08:28)
--- NOTE | 2023-03-02 08:33 | P.PN ---
Subjective Progress Note Date: 03/02/23 Principal diagnosis: Altered mental status This is a 77-year-old male who presented to the ER with concerns of altered mental status. His had found him on the ground prior to coming to the ER. He was placed in ICU, has had tachycardia with hypotension. He also continues t o have intermittent fevers. Workup for bacterial meningitis was negative. EEG was negative for seizure activity. Further workup still in progress. Patient still has a white count today. He is seen laying in bed in the ICU this morning, in no acute distress. 03/02/2023 Patient is seen and evaluated sitting up in bed in ICU. Over the weekend patient developed atrial fibrillation with RVR. He remains on a heparin drip. Patient also began to be more alert over the weekend, responds to verbal commands, does have garbled speech. Neurology has ordered an MRI of the brain. Objective - Vital Signs Vital signs: Vital Signs Temp 98.2 F 03/02/23 04:00 Pulse 69 03/02/23 06:30 Resp 19 03/02/23 06:30 BP 116/77 03/02/23 06:30 Pulse Ox 96 03/02/23 07:59 FiO2 40 03/02/23 07:59 Intake & Output 03/01/23 03/02/23 03/02/23 18:59 06:59 18:59 Intake Total 7880.344 4021 250 Output Total 4800 620 90 Balance -3741.500 654 160 Weight 106.9 kg Intake: IV 1050 925 250 Piperacillin-Tazobactam 3 200 100 100 .375 gm In Sodium Chloride 0.9% 100 ml @ 25 mls/hr IVPB Q8HR [facility] Rx# :[id number] Potassium Chloride 10 meq 400 300 In Water For Injection 1 100ml.bag @ 100 mls/hr IVPB Q1HR [facility] Rx#: [id number] Sodium Chloride 0.9% 1, 450 525 150 000 ml @ 75 mls/hr IV . [id number] [facility] Rx#:[id number] Intake, IV Titration 8.500 349 Amount Diltiazem 125 mg In 8.500 99 Sodium Chloride 0.9% 100 ml @ Per Protocol IV .Q0M [facility] Rx#:[id number] Heparin Sod,Pork in 0.45% 250 NaCl 25,000 unit In 0.45 % NaCl 1 250ml.bag @ 9. 355 UNITS/KG/HR 10 mls/hr IV .Q24H [facility] Rx#: [id number] Output: Urine 4800 620 90 Other: Voiding Method Indwelling Catheter Indwelling Catheter Indwelling Catheter - Constitutional General appearance: Present: cooperative, no acute distress - EENT Eyes: Present: PERRLA - Neck Neck: Present: normal ROM. Absent: lymphadenopathy, rigidity - Respiratory Respiratory: bilateral: diminished - Cardiovascular Heart sounds: normal: S1, S2 - Gastrointestinal General gastrointestinal: Present: soft. Absent: tenderness - Integumentary Integumentary: Present: normal, normal turgor - Musculoskeletal Musculoskeletal: Present: generalized weakness - Psychiatric Psychiatric Comment(s): Alert to person and place - Labs CBC & Chem 7: 03/02/23 04:14 03/02/23 04:14 Labs: Abnormal Lab Results - Last 24 Hours (Table) 03/01/23 03/01/23 03/02/23 Range/Units 15:14 23:47 00:27 APTT (22.0-30.0) sec Potassium 3.1 L 3.3 L (3.5-5.1) mmol/L BUN (9-20) mg/dL Creatinine (0.66-1.25) mg/dL Glucose (74-99) mg/dL POC Glucose (mg/dL) 112 H (70-110) mg/dL Calcium (8.4-10.2) mg/dL Total Bilirubin (0.2-1.3) mg/dL AST 108 H (17-59) U/L ALT 76 H (4-49) U/L Creatine Kinase (55-170) U/L Total Protein (6.3-8.2) g/dL Albumin (3.5-5.0) g/dL 03/02/23 03/02/23 Range/Units 04:14 04:14 APTT 47.3 H (22.0-30.0) sec Potassium (3.5-5.1) mmol/L BUN 21 H (9-20) mg/dL Creatinine 0.61 L (0.66-1.25) mg/dL Glucose 109 H (74-99) mg/dL POC Glucose (mg/dL) (70-110) mg/dL Calcium 7.8 L (8.4-10.2) mg/dL Total Bilirubin 1.5 H (0.2-1.3) mg/dL AST 82 H (17-59) U/L ALT 69 H (4-49) U/L Creatine Kinase 719 H (55-170) U/L Total Protein 5.8 L (6.3-8.2) g/dL Albumin 2.7 L (3.5-5.0) g/dL Assessment and Plan (1) Altered mental status Current Visit: Yes Status: Acute Code(s): R41.82 - ALTERED MENTAL STATUS, UNSPECIFIED SNOMED Code(s): 760772567 (2) Pneumonia Current Visit: Yes Status: Acute Code(s): J18.9 - PNEUMONIA, UNSPECIFIED ORGANISM SNOMED Code(s): 215930376 (3) Septic shock Current Visit: Yes Status: Acute Code(s): A41.9 - SEPSIS, UNSPECIFIED ORGANISM; R65.21 - SEVERE SEPSIS WITH SEPTIC SHOCK SNOMED Code(s): 70950747 (4) Atrial fibrillation Current Visit: Yes Status: Acute Code(s): I48.91 - UNSPECIFIED ATRIAL F IBRILLATION SNOMED Code(s): 59386276 Plan: Appreciate multiple consultants. Await results from further workup. Patient seen and evaluated by nurse practitioner, physician in agreement with plan
[2023-03-02] MEDS: METOPROLOL TARTRATE 50 MG TAB PO SCH ×2 (09:23→21:10)
[2023-03-02] MEDS: DILTIAZEM 125 MG in SODIUM CHLORIDE 0.9% 100 ML IV SCH (09:24)
--- NOTE | 2023-03-02 09:24 | P.PN ---
Subjective Progress Note Date: 03/02/23 The patient is a 77-year-old male who was admitted to the hospital with a mechanical fall. The patient's had found him down on the ground and it is unknown if he had a syncopal episode. Cardiology was consulted for atrial fibrillation. He was given amiodarone bolus, which was subsequently discontin ued and started on a Cardizem drip where he has remained rate controlled. Hospital course is also a current candidate by septicemia and encephalopathy. On exam, the patient responds to voice, however his voice is muffled. Words are not discernible. GENERAL: Well-appearing, well-nourished and in no acute distress. NECK: Supple without JVD or thyromegaly. LUNGS: Breath sounds diminished to auscultation bilaterally. Respiration equal and unlabored. Lung sounds coarse. HEART: Irregular rate and rhythm without murmurs, rubs or gallops. S1 and S2 heard. EXTREMITIES: Normal range of motion, no edema. No clubbing or cyanosis. Peripheral pulses intact and strong. TELEMETRY: Rate controlled atrial fibrillation in the 70s to 80s LABS: WBC 9.7, hemoglobin 14.2, hematocrit 42.1, platelet 160, sodium 141, potassium 3.7, BUN 21, creatinine 0.61, AST 82, ALT 69 IMPRESSION: Status post mechanical fall Persistent atrial fibrillation Hypertension Encephalopathy Septicemia Elevated liver enzymes PLAN: Start oral beta blockers Wean off of Cardizem drip Start oral anticoagulation, check coverage Continue supportive treatment with aggressive pulmonary hygiene Further recommendations based on clinical course I am dictating on behalf of Dr Larry Neil's history/physical and assessment/plan. Objective - Vital Signs Vital signs: Vital Signs Temp 97.4 F L 03/02/23 08:00 Pulse 80 03/02/23 08:30 Resp 8 L 03/02/23 08:30 BP 137/77 03/02/23 08:30 Pulse Ox 93 L 03/02/23 08:30 FiO2 40 03/02/23 07:59 Intake & Output 03/01/23 03/02/23 03/02/23 18:59 06:59 18:59 Intake Total 3150.152 7148 375 Output Total 4800 620 90 Balance -3741.500 654 285 Weight 106.9 kg Intake: IV 1050 925 250 Piperacillin-Tazobactam 3 200 100 100 .375 gm In Sodium Chloride 0.9% 100 ml @ 25 mls/hr IVPB Q8HR [facility] Rx# :[id number] Potassium Chloride 10 meq 400 300 In Water For Injection 1 100ml.bag @ 100 mls/hr IVPB Q1HR [facility] Rx#: [id number] Sodium Chloride 0.9% 1, 450 525 150 000 ml @ 75 mls/hr IV . [id number] [facility] Rx#:[id number] Intake, IV Titration 8.500 349 125 Amount Diltiazem 125 mg In 8.500 99 125 Sodium Chloride 0.9% 100 ml @ Per Protocol IV .Q0M [facility] Rx#:[id number] Heparin Sod,Pork in 0.45% 250 NaCl 25,000 unit In 0.45 % NaCl 1 250ml.bag @ 9. 355 UNITS/KG/HR 10 mls/hr IV .Q24H [facility] Rx#: [id number] Output: Urine 4800 620 90 Other: Voiding Method Indwelling Catheter Indwelling Catheter Indwelling Catheter - Labs CBC & Chem 7: 03/02/23 04:14 03/02/23 04:14 Labs: Abnormal Lab Results - Last 24 Hours (Table) 03/01/23 03/01/23 03/02/23 Range/Units 15:14 23:47 00:27 APTT (22.0-30.0) sec Potassium 3.1 L 3.3 L (3.5-5.1) mmol/L BUN (9-20) mg/dL Creatinine (0.66-1.25) mg/dL Glucose (74-99) mg/dL POC Glucose (mg/dL) 112 H (70-110) mg/dL Calcium (8.4-10.2) mg/dL Total Bilirubin (0.2-1.3) mg/dL AST 108 H (17-59) U/L ALT 76 H (4-49) U/L Creatine Kinase (55-170) U/L Total Protein (6.3-8.2) g/dL Albumin (3.5-5.0) g/dL 03/02/23 03/02/23 Range/Units 04:14 04:14 APTT 47.3 H (22.0-30.0) sec Potassium (3.5-5.1) mmol/L BUN 21 H (9-20) mg/dL Creatinine 0.61 L (0.66-1.25) mg/dL Glucose 109 H (74-99) mg/dL POC Glucose (mg/dL) (70-110) mg/dL Calcium 7.8 L (8.4-10.2) mg/dL Total Bilirubin 1.5 H (0.2-1.3) mg/dL AST 82 H (17-59) U/L ALT 69 H (4-49) U/L Creatine Kinase 719 H (55-170) U/L Total Protein 5.8 L (6.3-8.2) g/dL Albumin 2.7 L (3.5-5.0) g/dL
--- NOTE | 2023-03-02 11:41 | P.PN ---
Subjective Progress Note Date: 03/02/23 I am seeing this patient in new consultation today 02/24/2023 after the patient presented to the ER yesterday evening with concerns of altered mental status. Patient is a 77-year-old white male with a limited past medical history. Apparently, the patient's found him down on the ground early yesterday morning confused. His last known well time was the night prior. Nonenhanced brain CT on arrival shows age-related atrophic and chronic small vessel ischemia without any obvious acute cranial process. Initial chest x-ray on arrival showed fullness around the right hilum likely related patient rotation. Underlying infiltrate or mass not excluded. CBC shows leukocytosis with a WBC count of 16, hemoglobin 13.5, hematocrit 39.1, platelets 109,000. BMP shows sodium 136, potassium 3.7, chloride 110, serum bicarb 17, BUN 36, creatinine 1.22, glucose 102. LFTs are mildly elevated. Troponins are 1.66 and 1.9. Urinalysis not particularly concerning for UTI. Negative for influenza, RSV, COVID-19. Patient was originally admitted to the floor, and was transferred to the ICU last night for tachycardia and hypotension. Yesterday, he was given a total of 2.5 L normal saline bolus. On my evaluation, the patient is lying in bed, extremities are rigid, he is febrile with a t-max of 103 F. He is on 2 L/m nasal cannula, oxygenating around 94%. He is disoriented and unable to provide any meaningful information. He mostly mumbles. I did speak to the patient's daughter, who denies any recent sinus, ear, or pulmonary infections. I am concerned for possible encephalitis or meningitis. I spoke with neurology last night, and updated them on the patient. There is an EEG pending for the morning. Patient is empirically covered with combination of ampicillin, vancomycin, and Rocephin. Infectious disease consult was also placed. Heart rhythm is currently normal sinus on bedside monitor. Blood pressure is normotensive. Normal saline is infusing at 130 ML's per hour. No need for vasopressors at this time. Patient will need a thorough neurological workup. He is being monitored in the intensive care unit in the meantime. Patient was seen and examined today on 02/25/2023, remains in the ICU, spiking temperatures intermittently, he had a T-max of 102.9. Spinal fluid workup so far is negative for bacterial meningitis. However viral meningitis/encephalitis is not entirely ruled out, and workup is still in progress. In the meantime the patient is being followed by many consultants including infectious disease and urology. Apparently his EEG was negative for seizure activity. Labs today showed leukocytosis with WBC of 15.1 hemoglobin is normal electrolytes are normal bicarb is 20 creatinine is 1.7, improved compared to his baseline on admission liver enzymes remain at the time elevated ammonia level is normal. Drug screen was negative. CPK was elevated on admission, no CPK noted today. His pro-calcitonin level 0.31. Ultrasound of the abdomen and pelvis showed slud ge in the gallbladder, it also showed hepatomegaly, otherwise limited exam Reevaluated today on 02/26/70, remains in the ICU on 3 L nasal cannula. Patient continues to have poor mental status, seems to be obtunded, at times he may follow simple instructions like wiggling toes but most of the time he doesn't. Patient is snoring and is having episodes of apnea hence ABG was done and showed a pO2 of 82 pCO2 37 pH of 7.35. Continues to have relatively high CPK but improving 11392, renal functioning continues to be about the same. Patient has a low bicarb of 16, and I'm recommending 1 amp of bicarb to be given. So far all the diagnostic workup is nondiagnostic the West Nile virus workup is still pending. Patient did have elevated WBC count elevated pro calcitonin. Mental status is not showing any improvement whatsoever. Neurology is following. Chest x-ray continues to show left basilar atelectasis, strongly doubt pneumonia. Patient remains empirically on antibiotics. He is on Zosyn. Remains on IV fluid at 150 ML per hour in the form of 1.9 normal saline. Patient was reevaluated today on 02/27/2023, patient remains in the ICU, he is on 2 L nasal cannula, his IV fluids remains at 1 50 mL per hour in the form of 0.9 normal saline, patient is scheduled to have an MRI today. Patient seems to be more responsive today, at least he is following instructions, his speech however remains quite garbled. He knows that he is in the hospital, he knew that it is 2022, but again his speech is very quite garbled and hard to understand. Considering his presentation I believe this is a significant improvement compared to his mental status upon presentation. CBC showed Fernie Smith is better at 13.8 hemoglobin is 14.4. Basic metabolic profile is normal, renal profile is normal CPK remains a bit elevated but trending down it is over 8000 Patient was seen again on 02/28/2023 patient remains in the ICU, last night he developed an episode of atrial fibrillation with RVR, he is now on Cardizem at 2.5 mg per hour, is also on heparin drip. Remains on IV fluid at 13 0 mL per hour. CPK is down to 5256, mental status is still basically about the same as yesterday, patient seems to comprehend, he knows where he is, he knows the year, but his speech is very garbled. And seems to be very slow. Unable to swallow, hence I'm recommending a nasogastric tube to be placed and start enteral feeding on this patient sometime today. Patient was supposed to have an MRI yesterday, but because of atrial fibrillation and RVR, MRI was canceled overall the patient remains encephalopathic, but slowly improving compared to his baseline upon his initial presentation. Neurology on the case still concerned about the possibility of encephalitis/meningitis and concerned about West Nile virus, workup is still pending in the meantime the patient remains on Zosyn empirically. He is also on Keppra although his EEG showed no evidence of epileptiform focus. Patient was reevaluated today on 03/01/2023, remains on 4 L nasal cannula neurologically the patient is about the same, patient is awake, follows instructions, knows where he is, however his speech remains quite garbled. Remains on Zosyn empirically for presumptive aspiration, chest x-ray today showed worsening bilateral opacities, not clear whether this is a worsening edema or multifocal infiltrates nonetheless I will cut down his IV fluids and I will give the patient a trial of Lasix 40 mg IV push. Patient remains on aspiration precautions, could not have a nasogastric tube placed yesterday. Will cautiously feed as the patient may have some microaspiration labs today showed relatively normal CBC and normal electrolytes and normal renal profile. CPK is down to 2008 The patient is seen today 03/02/2023 in follow-up in the intensive care unit. He is currently resting comfortably in bed. Awake. Following instructions. Answering questions. Speech is still quite garbled. He is still quite weak. Chest x-ray shows improved aeration of the lungs with persistent airspace opacities scattered throughout the lungs. No pneumothorax. No large pleural effusion. Blood cultures revealed no growth. Urine culture revealed no growth. Serum spinal fluid culture revealed no growth. West Nile test still pending. White count 9.7. Hemoglobin 14.2. Platelets 160. Sodium 141. Potassium 3.7. Bicarb 29. BUN 21. Creatinine 0.61. Glucose 109. AST 82. ALT 69. Creatinine kinase 719. He did have issues with atrial fibrillation and rapid ventricular response. He's currently on a Cardizem drip at 10 mg per hour. Heparin drip. He is being nourished with vital AF at 15 ML's per hour via nasogastric tube. Pro-calcitonin 0.31. He remains on Zosyn. Maintain O2 saturations in the 90s on 2 L/m per nasal cannula. He remains afebrile. Hemodynamically stable. Objective - Vital Signs Vital signs: Vital Signs Temp 97.4 F L 03/02/23 08:00 Pulse 74 03/02/23 10:00 Resp 21 03/02/23 10:00 BP 134/77 03/02/23 10:00 Pulse Ox 96 03/02/23 10:00 FiO2 40 03/02/23 07:59 Intake & Output 03/01/23 03/02/23 03/02/23 18:59 06:59 18:59 Intake Total 8963.028 5424 375.5 Output Total 4800 620 90 Balance -3741.500 654 285.5 Weight 106.9 kg Intake: IV 1050 925 250 Piperacillin-Tazobactam 3 200 100 100 .375 gm In Sodium Chloride 0.9% 100 ml @ 25 mls/hr IVPB Q8HR [facility] Rx# :[id number] Potassium Chloride 10 meq 400 300 In Water For Injection 1 100ml.bag @ 100 mls/hr IVPB Q1HR [facility] Rx#: [id number] Sodium Chloride 0.9% 1, 450 525 150 000 ml @ 75 mls/hr IV . [id number] [facility] Rx#:[id number] Intake, IV Titration 8.500 349 125.5 Amount Diltiazem 125 mg In 8.500 99 125.5 Sodium Chloride 0.9% 100 ml @ Per Protocol IV .Q0M [facility] Rx#:[id number] Heparin Sod,Pork in 0.45% 250 NaCl 25,000 unit In 0.45 % NaCl 1 250ml.bag @ 9. 355 UNITS/KG/HR 10 mls/hr IV .Q24H [facility] Rx#: [id number] Output: Urine 4800 620 90 Other: Voiding Method Indwelling Catheter Indwelling Catheter Indwelling Catheter - Exam GENERAL EXAM: Alert, slow to respond, garbled speech but appropriate, on 2 L nasal cannula, comfortable in no apparent distress. HEAD: Normocephalic. EYES: Normal reaction of pupils, equal size. NOSE: Clear with pink turbinates. THROAT: No erythema or exudates. NECK: No masses, no JVD. CHEST: No chest wall deformity. LUNGS: Equal air entry with few scattered rhonchi. CVS: S1 and S2 normal with no audible murmur, regular rhythm. ABDOMEN: No hepatosplenomegaly, normal bowel sounds, no guarding or rigidity. SPINE: No scoliosis or deformity SKIN: No rashes CENTRAL NERVOUS SYSTEM: Slow to respond, garbled speech. Tone is normal in all 4 extremities. EXTREMITIES: There is no peripheral edema. No clubbing, no cyanosis. Peripheral pulses are intact. - Labs CBC & Chem 7: 03/02/23 04:14 03/02/23 10:41 Labs: Abnormal Lab Results - Last 24 Hours (Table) 03/01/23 03/01/23 03/02/23 Range/Units 15:14 23:47 00:27 APTT (22.0-30.0) sec Potassium 3.1 L 3.3 L (3.5-5.1) mmol/L BUN (9-20) mg/dL Creatinine (0.66-1.25) mg/dL Glucose (74-99) mg/dL POC Glucose (mg/dL) 112 H (70-110) mg/dL Calcium (8.4-10.2) mg/dL Total Bilirubin (0.2-1.3) mg/dL AST 108 H (17-59) U/L ALT 76 H (4-49) U/L Creatine Kinase (55-170) U/L Total Protein (6.3-8.2) g/dL Albumin (3.5-5.0) g/dL 03/02/23 03/02/23 Range/Units 04:14 04:14 APTT 47.3 H (22.0-30.0) sec Potassium (3.5-5.1) mmol/L BUN 21 H (9-20) mg/dL Creatinine 0.61 L (0.66-1.25) mg/dL Glucose 109 H (74-99) mg/dL POC Glucose (mg/dL) (70-110) mg/dL Calcium 7.8 L (8.4-10.2) mg/dL Total Bilirubin 1.5 H (0.2-1.3) mg/dL AST 82 H (17-59) U/L ALT 69 H (4-49) U/L Creatine Kinase 719 H (55-170) U/L Total Protein 5.8 L (6.3-8.2) g/dL Albumin 2.7 L (3.5-5.0) g/dL Assessment and Plan Assessment: Suspect sepsis, exact source is not clear, could still be [employer] related, possible viral encephalitis, further workup is pending. West Nile virus workup is pending Altered mental status, being addressed by neurology on the case. Acute febrile illness and sepsis, no obvious infectious process identified yet, all cultures have been negative so far. Leukocytosis, resolved, possible aspiration pneumonia. Currently on Zosyn, procalcitonin 0.31. Acute rhabdomyolysis, significantly elevated CPK, improving with hydration, CPK is down to 2080 Elevated LFTs, viral studies are pending, ultrasound showed hepatomegaly Elevated troponins, possibly related to supply/demand mismatch Plan: The patient was seen and evaluated Chest x-ray, labs and medications reviewed Currently stable on 2 L nasal cannula Continue on Cardizem drip, heparin drip Being nourished via NG tube with vital AF Remains on Zosyn Transfer to cardiac stepdown unit We will continue to follow I have personally seen and examined the patient, performed the documentation and the assessment and plan as written. Number of minutes spent on the visit: 10.
[2023-03-02 11:48] LABS: Glucose,Whole Blood 107 mg/dL (70-110)
--- NOTE | 2023-03-02 11:59 | P.PN ---
Subjective Progress Note Date: 03/02/23 Principal diagnosis: Fever Patient is a 77-year-old male presenting to the hospital y after the patient was found to be unresponsive by the , patient has been febrile initial testing negative including LP which was only mildly elevated protein. On today's evaluation that is 03/02/2023, the patient remains to be afebrile, the patient is breathing comfortably on 2 L nasal cannula oxygen, the patient is more awake and alert today and also some simple questions by nodding of his head patient did have NG for feeding no vomiting or diarrhea has been reported patient white count is normal at 9.7 creatinine 0.61 Objective - Vital Signs Vital signs: Vital Signs Temp 97.4 F L 03/02/23 08:00 Pulse 74 03/02/23 10:00 Resp 21 03/02/23 10:00 BP 134/77 03/02/23 10:00 Pulse Ox 96 03/02/23 10:00 FiO2 40 03/02/23 07:59 Intake & Output 03/01/23 03/02/23 03/02/23 18:59 06:59 18:59 Intake Total 0054.870 2515 375.5 Output Total 4800 620 90 Balance -3741.500 654 285.5 Weight 106.9 kg Intake: IV 1050 925 250 Piperacillin-Tazobactam 3 200 100 100 .375 gm In Sodium Chloride 0.9% 100 ml @ 25 mls/hr IVPB Q8HR [facility] Rx# :[id number] Potassium Chloride 10 meq 400 300 In Water For Injection 1 100ml.bag @ 100 mls/hr IVPB Q1HR [facility] Rx#: [id number] Sodium Chloride 0.9% 1, 450 525 150 000 ml @ 75 mls/hr IV . [id number] [facility] Rx#:[id number] Intake, IV Titration 8.500 349 125.5 Amount Diltiazem 125 mg In 8.500 99 125.5 Sodium Chloride 0.9% 100 ml @ Per Protocol IV .Q0M [facility] Rx#:[id number] Heparin Sod,Pork in 0.45% 250 NaCl 25,000 unit In 0.45 % NaCl 1 250ml.bag @ 9. 355 UNITS/KG/HR 10 mls/hr IV .Q24H [facility] Rx#: [id number] Output: Urine 4800 620 90 Other: Voiding Method Indwelling Catheter Indwelling Catheter Indwelling Catheter - Exam GENERAL DESCRIPTION: An elderly male lying in bed in no distress RESPIRATORY SYSTEM: Unlabored breathing , coarse breath sounds bilaterally HEART: S1 S2 regular rate and rhythm , ABDOMEN: Soft , no tenderness EXTREMITIES: No edema feet - Labs CBC & Chem 7: 03/02/23 04:14 03/02/23 10:41 Labs: Abnormal Lab Results - Last 24 Hours (Table) 03/01/23 03/01/23 03/02/23 Range/Units 15:14 23:47 00:27 APTT (22.0-30.0) sec Potassium 3.1 L 3.3 L (3.5-5.1) mmol/L BUN (9-20) mg/dL Creatinine (0.66-1.25) mg/dL Glucose (74-99) mg/dL POC Glucose (mg/dL) 112 H (70-110) mg/dL Calcium (8.4-10.2) mg/dL Total Bilirubin (0.2-1.3) mg/dL AST 108 H (17-59) U/L ALT 76 H (4-49) U/L Creatine Kinase (55-170) U/L Total Protein (6.3-8.2) g/dL Albumin (3.5-5.0) g/dL 03/02/23 03/02/23 Range/Units 04:14 04:14 APTT 47.3 H (22.0-30.0) sec Potassium (3.5-5.1) mmol/L BUN 21 H (9-20) mg/dL Creatinine 0.61 L (0.66-1.25) mg/dL Glucose 109 H (74-99) mg/dL POC Glucose (mg/dL) (70-110) mg/dL Calcium 7.8 L (8.4-10.2) mg/dL Total Bilirubin 1.5 H (0.2-1.3) mg/dL AST 82 H (17-59) U/L ALT 69 H (4-49) U/L Creatine Kinase 719 H (55-170) U/L Total Protein 5.8 L (6.3-8.2) g/dL Albumin 2.7 L (3.5-5.0) g/dL Assessment and Plan (1) Fever Current Visit: Yes Status: Acute Code(s): R50.9 - FEVER, UNSPECIFIED SNOMED Code(s): 831988002 (2) Pneumonia Current Visit: Yes Status: Acute Code(s): J18.9 - PNEUMONIA, UNSPECIFIED ORGANISM SNOMED Code(s): 661476314 Plan: 1patient with SIRS in this patient with a fever elevated white count tachycardia with significant mental status changes high clinical suspicious for possible encephalitis/meningitis however the patient LP is relatively clear only mildly elevated protein of 86 patient chest x-ray negative for pneumonia urine has been negative mildly elevated liver enzymes and the patient did have evidence of rhabdomyolysis as the patient has been on the floor for more than 12 hours however no evidence of any bruising or injury has been noticed abdominal soft on clinical examination 2- ultrasound of the abdomen sludge versus artifact in the gallbladder no other abnormality noticed 3- hepatitis panel is negative, blood and CSF cultures so far negative and urine culture were negative 4Patient is slowly clinically improving, the patient Fever has resolved and white count has normalized 5- patient to continue with Zosyn and monitor his clinical course closely Dictation was produced using [employer] dictation software. please excuse any grammatical, word or spelling errors. Time with Patient: Less than 30
--- NOTE | 2023-03-02 17:21 | MR ---
EXAMINATION TYPE: MR brain wo/w con DATE OF EXAM: 03/02/2023 3:46 PM CLINICAL INDICATION:Male, 77 years old with history of AMS rule out encephalitis, AMS, Rule out encep halitis COMPARISON: CT brain 01/28/2023 TECHNIQUE: Multi planar, multi sequence imaging was performed through the brain including: T1, T2, In version recovery, susceptibility weighted imaging and gradient echo imaging and Diffusion weighted im aging. The patient was then given intravenous contrast and multi planar, T1 fat-saturation images wer e obtained. IV Contrast: 10 cc Gadavist FINDINGS: The adams-white junctions, ventricular system, basal cisterns appear unremarkable. Diffusion-weighted imaging shows no evidence of restricted diffusion to suggest acute/subacute infarct. Intracranial art erial flow voids are maintained. Midline structures show no abnormality. Minimal scattered foci of hi gh T2 signal intensity are seen within the periventricular white matter. The susceptibility weighted images demonstrate left frontal lobe microhemorrhage with blooming artifact focus.. After administrat ion of gadolinium, no abnormal enhancement is seen. The bone marrow signal is within normal limits. Paranasal sinuses and mastoid air cells: No significant paranasal sinus disease. Visualized orbits: Orbital contents are intact. IMPRESSION: 1. No evidence for encephalitis. No evidence of intracranial mass, acute/subacute infarct, or abnorma l enhancement. 2. Nonspecific white matter changes, likely related to small vessel ischemic disease
[2023-03-02 17:40] LABS: Glucose,Whole Blood 119 mg/dL (70-110)
[2023-03-02 23:58] LABS: Glucose,Whole Blood 127 mg/dL (70-110)
[2023-03-03] MEDS: PIPERACILLIN-TAZOBACTAM 3.375 GM in SODIUM CHLORIDE 0.9% 100 ML IVPB SCH ×3 (00:39→16:50)
[2023-03-03] MEDS: HEPARIN SOD,PORK IN 0.45% NACL 25,000 UNIT in 0.45% NACL 1 250ML.BAG IV SCH (00:42)
[2023-03-03 05:06] LABS: HGB 13.6 gm/dL (13.0-17.5); MCH 31.5 pg (25.0-35.0); MCHC 33.2 g/dL (31.0-37.0); MCV 94.9 fL (80.0-100.0); Mean Platelet Volume 9.4; Platelet Count 184 k/uL (150-450); RBC 4.32 m/uL (4.30-5.90); RDW 12.1 % (11.5-15.5); WBC 10.2 k/uL (3.8-10.6)
[2023-03-03 05:10] LABS: ALT 70 U/L (4-49); AST 82 U/L (17-59); African American GFR (CKD) >90 (>60 ml/min/1.73 sqM); Albumin 2.6 g/dL (3.5-5.0); Alkaline Phosphatase 47 U/L (38-126); Anion Gap 2 mmol/L; Blood Urea Nitrogen 17 mg/dL (9-20); Calcium 7.7 mg/dL (8.4-10.2); Carbon Dioxide 30 mmol/L (22-30); Chloride 106 mmol/L (98-107); Glucose 121 mg/dL (74-99); Non-African American GFR(CKD) >90 (>60 ml/min/1.73 sqM); Potassium 3.3 mmol/L (3.5-5.1); Sodium 138 mmol/L (137-145); Total Bilirubin 1.4 mg/dL (0.2-1.3); Total Protein 5.8 g/dL (6.3-8.2)
[2023-03-03] MEDS: POTASSIUM BICARBONATE/CIT AC 20 MEQ TABLET.EFF NG-TUBE SCH ×2 (05:48→06:59)
[2023-03-03 05:58] LABS: Glucose,Whole Blood 120 mg/dL (70-110)
--- NOTE | 2023-03-03 07:51 | P.PN ---
Subjective Principal diagnosis: Altered mental status This is 77-year-old white male with no significant past medical history came in and septic shock and questionable pneumonia. He was significant tachycardia with hypotension and was placed in ICU for observation. He continues to have significant mental status changes. Question febrile seizure element. Temperature is improved IV Tylenol has been administered. Appreciate multiple consultants input. He is able to answer yes and no to questions. He seems fatigued. Objective - Vital Signs Vital signs: Vital Signs Temp 98.2 F 03/03/23 04:00 Pulse 141 H 03/03/23 06:00 Resp 21 03/03/23 06:00 BP 127/81 03/03/23 06:00 Pulse Ox 97 03/03/23 06:00 FiO2 40 03/03/23 07:33 Intake & Output 03/02/23 03/03/23 03/03/23 18:59 06:59 18:59 Intake Total 455.5 725 Output Total 190 825 Balance 265.5 -100 Weight 106.9 kg 107.6 kg Intake: IV 330 75 Piperacillin-Tazobactam 3 100 .375 gm In Sodium Chloride 0.9% 100 ml @ 25 mls/hr IVPB Q8HR [facility] Rx# :[id number] Sodium Chloride 0.9% 1, 230 75 000 ml @ 75 mls/hr IV . [id number] [facility] Rx#:[id number] Intake, IV Titration 125.5 250 Amount Diltiazem 125 mg In 125.5 Sodium Chloride 0.9% 100 ml @ Per Protocol IV .Q0M [facility] Rx#:[id number] Heparin Sod,Pork in 0.45% 250 NaCl 25,000 unit In 0.45 % NaCl 1 250ml.bag @ 9. 355 UNITS/KG/HR 10 mls/hr IV .Q24H [facility] Rx#: [id number] Tube Feeding 280 Other 120 Output: Urine 190 825 Other: Voiding Method Indwelling Catheter Indwelling Catheter - Constitutional General appearance: Present: average body habitus, mild distress - EENT Eyes: Absent: abnormal pupil - Neck Neck: Absent: lymphadenopathy - Respiratory Respiratory: bilateral: diminished - Cardiovascular Rhythm: regular Heart sounds: normal: S1, S2 Abnormal Heart Sounds: Absent: S3 Gallop - Gastrointestinal General gastrointestinal: Present: soft. Absent: tenderness - Labs CBC & Chem 7: 03/03/23 04:37 03/03/23 04:37 Labs: Abnormal Lab Results - Last 24 Hours (Table) 03/02/23 03/02/23 03/03/23 Range/Units 17:39 23:57 04:37 APTT (22.0-30.0) sec Potassium 3.3 L (3.5-5.1) mmol/L Creatinine 0.59 L (0.66-1.25) mg/dL Glucose 121 H (74-99) mg/dL POC Glucose (mg/dL) 119 H 127 H (70-110) mg/dL Calcium 7.7 L (8.4-10.2) mg/dL Total Bilirubin 1.4 H (0.2-1.3) mg/dL AST 82 H (17-59) U/L ALT 70 H (4-49) U/L Total Protein 5.8 L (6.3-8.2) g/dL Albumin 2.6 L (3.5-5.0) g/dL 03/03/23 03/03/23 Range/Units 04:37 05:57 APTT 49.6 H (22.0-30.0) sec Potassium (3.5-5.1) mmol/L Creatinine (0.66-1.25) mg/dL Glucose (74-99) mg/dL POC Glucose (mg/dL) 120 H (70-110) mg/dL Calcium (8.4-10.2) mg/dL Total Bilirubin (0.2-1.3) mg/dL AST (17-59) U/L ALT (4-49) U/L Total Protein (6.3-8.2) g/dL Albumin (3.5-5.0) g/dL Microbiology - Last 24 Hours (Table) 02/25/23 05:19 Blood Culture - Final Blood Assessment and Plan (1) Altered mental status Current Visit: Yes Status: Acute Code(s): R41.82 - ALTERED MENTAL STATUS, UNSPECIFIED SNOMED Code(s): 157856784 (2) Pneumonia Current Visit: Yes Status: Acute Code(s): J18.9 - PNEUMONIA, UNSPECIFIED ORGANISM SNOMED Code(s): 580004071 (3) Septic shock Current Visit: Yes Status: Acute Code(s): A41.9 - SEPSIS, UNSPECIFIED ORGANISM; R65.21 - SEVERE SEPSIS WITH SEPTIC SHOCK SNOMED Code(s): 58988659 Plan: Tachycardic. Still fatigued. Appreciate multiple consultants input. Negative culture so far. Improving pneumonia. Stabilize cardiovascular elements. Hopefully he can go to the stepdown unit. Continue BiPAP
--- NOTE | 2023-03-03 08:01 | XR ---
EXAMINATION TYPE: XR chest 1V portable DATE OF EXAM: 03/03/2023 HISTORY: Shortness of breath. COMPARISON: 03/02/2023 TECHNIQUE: Single view of the chest is submitted. FINDINGS: Demonstrated are scattered senescent parenchymal change. NG tube is seen coursing into the stomach. There is left basilar opacity which may reflect atelectasis or pneumonia. The heart is stable. Hilar and mediastinal structures are within normal limits. Degenerative changes are seen of the dorsal spine. IMPRESSION: 1. Essentially stable chest.
[2023-03-03] MEDS: PANTOPRAZOLE 40 MG/10 ML VIAL IVP SCH (08:54)
[2023-03-03] MEDS: METOPROLOL TARTRATE 50 MG TAB PO SCH ×2 (08:54→20:25)
[2023-03-03] MEDS: levETIRAcetam IV 500 MG/5 ML VIAL IVP SCH ×2 (08:54→20:26)
[2023-03-03] MEDS: LOSARTAN 25 MG TAB PO SCH (08:55)
[2023-03-03 10:02] LABS: Basophils % (A) 0 %; Eosinophils # (A) 0.1 k/uL (0-0.7); Eosinophils % (A) 1 %; HCT 41.1 % (39.0-53.0); HGB 14.1 gm/dL (13.0-17.5); Lymphocytes # (A) 0.9 k/uL (1.0-4.8); Lymphocytes % (A) 10 %; MCH 32.7 pg (25.0-35.0); MCHC 34.2 g/dL (31.0-37.0); MCV 95.6 fL (80.0-100.0); Mean Platelet Volume 10.1; Monocytes # (A) 0.8 k/uL (0-1.0); Monocytes % (A) 9 %; Neutrophils # (A) 7.8 k/uL (1.3-7.7); Neutrophils % (A) 80 %; Platelet Count 180 k/uL (150-450); RBC 4.29 m/uL (4.30-5.90); RDW 12.3 % (11.5-15.5); WBC 9.8 k/uL (3.8-10.6)
--- NOTE | 2023-03-03 10:35 | P.PN ---
Subjective Progress Note Date: 03/03/23 The patient is a 77-year-old male who was admitted to the hospital with a mechanical fall. The patient's had found him down on the ground and it is unknown if he had a syncopal episode. Cardiology was consulted for atrial fibrillation. He was given amiodarone bolus, which was subsequently discontin ued and started on a Cardizem drip where he has remained rate controlled. Hospital course is also a current candidate by septicemia and encephalopathy. On exam, the patient responds to voice. He is currently resting comfortably on BiPAP. He gives a "thumbs up"in regards to his breathing. GENERAL: Well-appearing, well-nourished and in no acute distress. Resting comfortably on BiPAP NECK: Supple without JVD or thyromegaly. LUNGS: Breath sounds diminished to auscultation bilaterally. Respiration equal and unlabored. Lung sounds coarse. HEART: Irregular rate and rhythm without murmurs, rubs or gallops. S1 and S2 heard. EXTREMITIES: Normal range of motion, no edema. No clubbing or cyanosis. Peripheral pulses intact and strong. TELEMETRY: A. fib with heart rates in the 120s, recently peaked in the success coach hours LABS: WBC 8, hemoglobin 14.1, hematocrit 41.1, platelet 180, sodium 138, potassium 3.3, BUN 17, creatinine 0.59, AST 82, ALT 70 IMPRESSION: Status post mechanical fall Persistent atrial fibrillation Hypertension Encephalopathy Septicemia Elevated liver enzymes PLAN: Maximize beta blockers Start oral anticoagulation, check coverage Continue supportive treatment with aggressive pulmonary hygiene Further recommendations based on clinical course I am dictating on behalf of Dr Larry Neil's history/physical and assessment/plan. Objective - Vital Signs Vital signs: Vital Signs Temp 98.1 F 03/03/23 08:00 Pulse 137 H 03/03/23 08:00 Resp 18 03/03/23 08:00 BP 135/96 03/03/23 08:00 Pulse Ox 97 03/03/23 08:00 FiO2 40 03/03/23 08:00 Intake & Output 03/02/23 03/03/23 03/03/23 18:59 06:59 18:59 Intake Total 455.5 725 Output Total 190 825 Balance 265.5 -100 Weight 106.9 kg 107.6 kg Intake: IV 330 75 Piperacillin-Tazobactam 3 100 .375 gm In Sodium Chloride 0.9% 100 ml @ 25 mls/hr IVPB Q8HR [facility] Rx# :[id number] Sodium Chloride 0.9% 1, 230 75 000 ml @ 75 mls/hr IV . [id number] [facility] Rx#:[id number] Intake, IV Titration 125.5 250 Amount Diltiazem 125 mg In 125.5 Sodium Chloride 0.9% 100 ml @ Per Protocol IV .Q0M [facility] Rx#:[id number] Heparin Sod,Pork in 0.45% 250 NaCl 25,000 unit In 0.45 % NaCl 1 250ml.bag @ 9. 355 UNITS/KG/HR 10 mls/hr IV .Q24H [facility] Rx#: [id number] Tube Feeding 280 Other 120 Output: Urine 190 825 Other: Voiding Method Indwelling Catheter Indwelling Catheter - Labs CBC & Chem 7: 03/03/23 09:18 03/03/23 09:18 Labs: Abnormal Lab Results - Last 24 Hours (Table) 03/02/23 03/02/23 03/03/23 Range/Units 17:39 23:57 04:37 RBC (4.30-5.90) m/uL Neutrophils # (1.3-7.7) k/uL Lymphocytes # (1.0-4.8) k/uL APTT (22.0-30.0) sec Potassium 3.3 L (3.5-5.1) mmol/L Creatinine 0.59 L (0.66-1.25) mg/dL Glucose 121 H (74-99) mg/dL POC Glucose (mg/dL) 119 H 127 H (70-110) mg/dL Calcium 7.7 L (8.4-10.2) mg/dL Total Bilirubin 1.4 H (0.2-1.3) mg/dL AST 82 H (17-59) U/L ALT 70 H (4-49) U/L Total Protein 5.8 L (6.3-8.2) g/dL Albumin 2.6 L (3.5-5.0) g/dL 03/03/23 03/03/23 03/03/23 Range/Units 04:37 05:57 09:18 RBC 4.29 L (4.30-5.90) m/uL Neutrophils # 7.8 H (1.3-7.7) k/uL Lymphocytes # 0.9 L (1.0-4.8) k/uL APTT 49.6 H (22.0-30.0) sec Potassium (3.5-5.1) mmol/L Creatinine (0.66-1.25) mg/dL Glucose (74-99) mg/dL POC Glucose (mg/dL) 120 H (70-110) mg/dL Calcium (8.4-10.2) mg/dL Total Bilirubin (0.2-1.3) mg/dL AST (17-59) U/L ALT (4-49) U/L Total Protein (6.3-8.2) g/dL Albumin (3.5-5.0) g/dL Microbiology - Last 24 Hours (Table) 02/25/23 05:19 Blood Culture - Final Blood
[2023-03-03] MEDS: APIXABAN 5 MG TAB PO SCH ×2 (10:56→20:26)
[2023-03-03] MEDS: SODIUM CHLORIDE 0.9% 1,000 ML IV SCH (10:57)
[2023-03-03 11:39] LABS: Glucose,Whole Blood 153 mg/dL (70-110)
--- NOTE | 2023-03-03 12:06 | P.PN ---
Subjective Progress Note Date: 03/03/23 I am seeing this patient in new consultation today 02/24/2023 after the patient presented to the ER yesterday evening with concerns of altered mental status. Patient is a 77-year-old white male with a limited past medical history. Apparently, the patient's found him down on the ground early yesterday morning confused. His last known well time was the night prior. Nonenhanced brain CT on arrival shows age-related atrophic and chronic small vessel ischemia without any obvious acute cranial process. Initial chest x-ray on arrival showed fullness around the right hilum likely related patient rotation. Underlying infiltrate or mass not excluded. CBC shows leukocytosis with a WBC count of 16, hemoglobin 13.5, hematocrit 39.1, platelets 109,000. BMP shows sodium 136, potassium 3.7, chloride 110, serum bicarb 17, BUN 36, creatinine 1.22, glucose 102. LFTs are mildly elevated. Troponins are 1.66 and 1.9. Urinalysis not particularly concerning for UTI. Negative for influenza, RSV, COVID-19. Patient was originally admitted to the floor, and was transferred to the ICU last night for tachycardia and hypotension. Yesterday, he was given a total of 2.5 L normal saline bolus. On my evaluation, the patient is lying in bed, extremities are rigid, he is febrile with a t-max of 103 F. He is on 2 L/m nasal cannula, oxygenating around 94%. He is disoriented and unable to provide any meaningful information. He mostly mumbles. I did speak to the patient's daughter, who denies any recent sinus, ear, or pulmonary infections. I am concerned for possible encephalitis or meningitis. I spoke with neurology last night, and updated them on the patient. There is an EEG pending for the morning. Patient is empirically covered with combination of ampicillin, vancomycin, and Rocephin. Infectious disease consult was also placed. Heart rhythm is currently normal sinus on bedside monitor. Blood pressure is normotensive. Normal saline is infusing at 130 ML's per hour. No need for vasopressors at this time. Patient will need a thorough neurological workup. He is being monitored in the intensive care unit in the meantime. Patient was seen and examined today on 02/25/2023, remains in the ICU, spiking temperatures intermittently, he had a T-max of 102.9. Spinal fluid workup so far is negative for bacterial meningitis. However viral meningitis/encephalitis is not entirely ruled out, and workup is still in progress. In the meantime the patient is being followed by many consultants including infectious disease and urology. Apparently his EEG was negative for seizure activity. Labs today showed leukocytosis with WBC of 15.1 hemoglobin is normal electrolytes are normal bicarb is 20 creatinine is 1.7, improved compared to his baseline on admission liver enzymes remain at the time elevated ammonia level is normal. Drug screen was negative. CPK was elevated on admission, no CPK noted today. His pro-calcitonin level 0.31. Ultrasound of the abdomen and pelvis showed slud ge in the gallbladder, it also showed hepatomegaly, otherwise limited exam Reevaluated today on 02/26/70, remains in the ICU on 3 L nasal cannula. Patient continues to have poor mental status, seems to be obtunded, at times he may follow simple instructions like wiggling toes but most of the time he doesn't. Patient is snoring and is having episodes of apnea hence ABG was done and showed a pO2 of 82 pCO2 37 pH of 7.35. Continues to have relatively high CPK but improving [id number], renal functioning continues to be about the same. Patient has a low bicarb of 16, and I'm recommending 1 amp of bicarb to be given. So far all the diagnostic workup is nondiagnostic the West Nile virus workup is still pending. Patient did have elevated WBC count elevated pro calcitonin. Mental status is not showing any improvement whatsoever. Neurology is following. Chest x-ray continues to show left basilar atelectasis, strongly doubt pneumonia. Patient remains empirically on antibiotics. He is on Zosyn. Remains on IV fluid at 150 ML per hour in the form of 1.9 normal saline. Patient was reevaluated today on 02/27/2023, patient remains in the ICU, he is on 2 L nasal cannula, his IV fluids remains at 1 50 mL per hour in the form of 0.9 normal saline, patient is scheduled to have an MRI today. Patient seems to be more responsive today, at least he is following instructions, his speech however remains quite garbled. He knows that he is in the hospital, he knew that it is 2022, but again his speech is very quite garbled and hard to understand. Considering his presentation I believe this is a significant improvement compared to his mental status upon presentation. CBC showed Fernie Smith is better at 13.8 hemoglobin is 14.4. Basic metabolic profile is normal, renal profile is normal CPK remains a bit elevated but trending down it is over 8000 Patient was seen again on 02/28/2023 patient remains in the ICU, last night he developed an episode of atrial fibrillation with RVR, he is now on Cardizem at 2.5 mg per hour, is also on heparin drip. Remains on IV fluid at 13 0 mL per hour. CPK is down to 5256, mental status is still basically about the same as yesterday, patient seems to comprehend, he knows where he is, he knows the year, but his speech is very garbled. And seems to be very slow. Unable to swallow, hence I'm recommending a nasogastric tube to be placed and start enteral feeding on this patient sometime today. Patient was supposed to have an MRI yesterday, but because of atrial fibrillation and RVR, MRI was canceled overall the patient remains encephalopathic, but slowly improving compared to his baseline upon his initial presentation. Neurology on the case still concerned about the possibility of encephalitis/meningitis and concerned about West Nile virus, workup is still pending in the meantime the patient remains on Zosyn empirically. He is also on Keppra although his EEG showed no evidence of epileptiform focus. Patient was reevaluated today on 03/01/2023, remains on 4 L nasal cannula neurologically the patient is about the same, patient is awake, follows instructions, knows where he is, however his speech remains quite garbled. Remains on Zosyn empirically for presumptive aspiration, chest x-ray today showed worsening bilateral opacities, not clear whether this is a worsening edema or multifocal infiltrates nonetheless I will cut down his IV fluids and I will give the patient a trial of Lasix 40 mg IV push. Patient remains on aspiration precautions, could not have a nasogastric tube placed yesterday. Will cautiously feed as the patient may have some microaspiration labs today showed relatively normal CBC and normal electrolytes and normal renal profile. CPK is down to 2008 The patient is seen today 03/02/2023 in follow-up in the intensive care unit. He is currently resting comfortably in bed. Awake. Following instructions. Answering questions. Speech is still quite garbled. He is still quite weak. Chest x-ray shows improved aeration of the lungs with persistent airspace opacities scattered throughout the lungs. No pneumothorax. No large pleural effusion. Blood cultures revealed no growth. Urine culture revealed no growth. Serum spinal fluid culture revealed no growth. West Nile test still pending. White count 9.7. Hemoglobin 14.2. Platelets 160. Sodium 141. Potassium 3.7. Bicarb 29. BUN 21. Creatinine 0.61. Glucose 109. AST 82. ALT 69. Creatinine kinase 719. He did have issues with atrial fibrillation and rapid ventricular response. He's currently on a Cardizem drip at 10 mg per hour. Heparin drip. He is being nourished with vital AF at 15 ML's per hour via nasogastric tube. Pro-calcitonin 0.31. He remains on Zosyn. Maintain O2 saturations in the 90s on 2 L/m per nasal cannula. He remains afebrile. Hemodynamically stable. The patient is seen today 03/03/2023 in follow-up in the intensive care unit. He is currently on BiPAP 05/13 at 40% FiO2. MRI of the brain showed no evidence for encephalitis. No evidence of intracranial mass, acute/subacute infarct or abnormal enhancement. Chest x-ray reveals scattered parenchymal changes. Left basilar opacity. Essentially stable chest. Blood cultures revealed no growth. Urine culture revealed no growth. Cerebral spinal fluid cultures revealed no growth. White count 9.8. Hemoglobin 14.1. Platelets 180. Sodium 138. Potassium 3.7. Bicarb 30. BUN 19. Creatinine 0.59. Glucose 121. AST 82. ALT 70. He remains on a heparin drip. Remains in atrial fibrillation with better controlled ventricular response remains on Zosyn. He has been nourished with vital AF at 50 MLS per hour with a goal of 83. Objective - Vital Signs Vital signs: Vital Signs Temp 98.1 F 03/03/23 08:00 Pulse 137 H 03/03/23 08:00 Resp 18 03/03/23 08:00 BP 135/96 03/03/23 08:00 Pulse Ox 97 03/03/23 08:00 FiO2 40 03/03/23 11:05 Intake & Output 03/02/23 03/03/23 03/03/23 18:59 06:59 18:59 Intake Total 455.5 725 135.372 Output Total 190 825 Balance 265.5 -100 135.372 Weight 106.9 kg 107.6 kg Intake: IV 330 75 Piperacillin-Tazobactam 3 100 .375 gm In Sodium Chloride 0.9% 100 ml @ 25 mls/hr IVPB Q8HR [facility] Rx# :[id number] Sodium Chloride 0.9% 1, 230 75 000 ml @ 75 mls/hr IV . [id number] [facility] Rx#:[id number] Intake, IV Titration 125.5 250 135.372 Amount Diltiazem 125 mg In 125.5 Sodium Chloride 0.9% 100 ml @ Per Protocol IV .Q0M [facility] Rx#:[id number] Heparin Sod,Pork in 0.45% 250 135.372 NaCl 25,000 unit In 0.45 % NaCl 1 250ml.bag @ 9. 355 UNITS/KG/HR 10 mls/hr IV .Q24H [facility] Rx#: [id number] Tube Feeding 280 Other 120 Output: Urine 190 825 Other: Voiding Method Indwelling Catheter Indwelling Catheter External Catheter - Exam GENERAL EXAM: Alert, slow to respond, garbled speech but appropriate, on BiPAP, comfortable in no apparent distress. HEAD: Normocephalic. EYES: Normal reaction of pupils, equal size. NOSE: Clear with pink turbinates. THROAT: No erythema or exudates. NECK: No masses, no JVD. CHEST: No chest wall deformity. LUNGS: Equal air entry with few scattered rhonchi. CVS: S1 and S2 normal with no audible murmur, regular rhythm. ABDOMEN: No hepatosplenomegaly, normal bowel sounds, no guarding or rigidity. SPINE: No scoliosis or deformity SKIN: No rashes CENTRAL NERVOUS SYSTEM: Slow to respond, garbled speech. Tone is normal in all 4 extremities. EXTREMITIES: There is no peripheral edema. No clubbing, no cyanosis. Peripheral pulses are intact. - Labs CBC & Chem 7: 03/03/23 09:18 03/03/23 09:18 Labs: Abnormal Lab Results - Last 24 Hours (Table) 03/02/23 03/02/23 03/03/23 Range/Units 17:39 23:57 04:37 RBC (4.30-5.90) m/uL Neutrophils # (1.3-7.7) k/uL Lymphocytes # (1.0-4.8) k/uL APTT (22.0-30.0) sec Potassium 3.3 L (3.5-5.1) mmol/L Creatinine 0.59 L (0.66-1.25) mg/dL Glucose 121 H (74-99) mg/dL POC Glucose (mg/dL) 119 H 127 H (70-110) mg/dL Calcium 7.7 L (8.4-10.2) mg/dL Total Bilirubin 1.4 H (0.2-1.3) mg/dL AST 82 H (17-59) U/L ALT 70 H (4-49) U/L Total Protein 5.8 L (6.3-8.2) g/dL Albumin 2.6 L (3.5-5.0) g/dL 03/03/23 03/03/23 03/03/23 Range/Units 04:37 05:57 09:18 RBC 4.29 L (4.30-5.90) m/uL Neutrophils # 7.8 H (1.3-7.7) k/uL Lymphocytes # 0.9 L (1.0-4.8) k/uL APTT 49.6 H (22.0-30.0) sec Potassium (3.5-5.1) mmol/L Creatinine (0.66-1.25) mg/dL Glucose (74-99) mg/dL POC Glucose (mg/dL) 120 H (70-110) mg/dL Calcium (8.4-10.2) mg/dL Total Bilirubin (0.2-1.3) mg/dL AST (17-59) U/L ALT (4-49) U/L Total Protein (6.3-8.2) g/dL Albumin (3.5-5.0) g/dL 03/03/23 Range/Units 11:37 RBC (4.30-5.90) m/uL Neutrophils # (1.3-7.7) k/uL Lymphocytes # (1.0-4.8) k/uL APTT (22.0-30.0) sec Potassium (3.5-5.1) mmol/L Creatinine (0.66-1.25) mg/dL Glucose (74-99) mg/dL POC Glucose (mg/dL) 153 H (70-110) mg/dL Calcium (8.4-10.2) mg/dL Total Bilirubin (0.2-1.3) mg/dL AST (17-59) U/L ALT (4-49) U/L Total Protein (6.3-8.2) g/dL Albumin (3.5-5.0) g/dL Microbiology - Last 24 Hours (Table) 02/25/23 05:19 Blood Culture - Final Blood Assessment and Plan Assessment: Encephalitis, suspect sepsis with underlying occult infection of unclear gerald ology. Further workup is pending. West Nile virus workup is pending Acute febrile illness and sepsis, no obvious infectious process identified yet, all cultures have been negative so far. Leukocytosis, resolved, possible aspiration pneumonia. Currently on Zosyn, procalcitonin 0.31. Acute rhabdomyolysis, significantly elevated CPK, improving with hydration, CPK is down to 719 Elevated LFTs, viral studies are negative, ultrasound showed hepatomegaly Elevated troponins, possibly related to supply/demand mismatch Atrial fibrillation with rapid ventricular response requiring Cardizem, heparin drip Plan: The patient was seen and evaluated Chest x-ray, MRI of the brain, labs and medications reviewed Currently on BiPAP alternating with nasal cannula Continue on heparin drip, to be transitioned to Eliquis Being nourished via NG tube with vital AF Remains on Zosyn We will continue to follow I have personally seen and examined the patient, performed the documentation and the assessment and plan as written. Number of minutes spent on the visit: 10.
--- NOTE | 2023-03-03 17:16 | P.PN ---
Subjective Progress Note Date: 03/03/23 I'm seeing the patient for the first time during this admission. Please refer to Dr. Mills's notes for further details. She is accompanied with his and daughter and the daughter provides most of the history. It seems that the patient resides with the and he has significant bilateral shoulder pain that is chronic and the patient sometimes sleeps on the couch or on the floor because of his pain. It seems that he presented to our facility since the patient's had confusion. At our facility th e patient had the multiple episodes of fevers and leukocytosis unknown cause. Patient had CSF study which was negative patient all also had MRI of the brain which also was negative. ID is on board. Patient fevers and leukocytosis has resolved but he is on antibiotic Objective - Vital Signs Vital signs: Vital Signs Temp 98.2 F 03/03/23 12:00 Pulse 116 H 03/03/23 12:00 Resp 18 03/03/23 12:00 BP 112/86 03/03/23 12:00 Pulse Ox 96 03/03/23 12:00 FiO2 40 03/03/23 11:05 Intake & Output 03/02/23 03/03/23 03/03/23 18:59 06:59 18:59 Intake Total 455.5 725 865.372 Output Total 154 996 7791 Balance 265.5 -100 -534.628 Weight 106.9 kg 107.6 kg Intake: IV 330 75 100 Piperacillin-Tazobactam 3 100 100 .375 gm In Sodium Chloride 0.9% 100 ml @ 25 mls/hr IVPB Q8HR [facility] Rx# :[id number] Sodium Chloride 0.9% 1, 230 75 000 ml @ 75 mls/hr IV . [id number] [facility] Rx#:[id number] Intake, IV Titration 125.5 250 215.372 Amount Diltiazem 125 mg In 125.5 Sodium Chloride 0.9% 100 ml @ Per Protocol IV .Q0M [facility] Rx#:[id number] Heparin Sod,Pork in 0.45% 250 135.372 NaCl 25,000 unit In 0.45 % NaCl 1 250ml.bag @ 9. 355 UNITS/KG/HR 10 mls/hr IV .Q24H [facility] Rx#: [id number] Sodium Chloride 0.9% 1, 80 000 ml @ 20 mls/hr IV . Q24H [facility] Rx#:[id number] Tube Feeding 280 450 Other 120 100 Output: Urine 778 524 1843 Other: Voiding Method Indwelling Catheter Indwelling Catheter External Catheter # Bowel Movements 1 - Exam General: The patient is lying in bed and does not appear in acute distress. Neuro: Limited because of his condition. Patient is drowsy but is awake able to voice. He's oriented to self he steadies in the hospital. He slowly responsive the question He's able to follow simple commands close his eyes, smiling, wiggling his toes. Right pupil is about 4 mm and the left is about 2mm and reactive to light. No facial weakness. Motor: Strength is hard to assess because of his significant pain. Upon lifting his arms above he was in pain. He'll squeeze my hands equally bilaterally. He'll wiggle both toes but he would not raise bilateral legs above gravity. - Labs CBC & Chem 7: 03/03/23 09:18 03/03/23 09:18 Labs: Abnormal Lab Results - Last 24 Hours (Table) 03/02/23 03/02/23 03/03/23 Range/Units 17:39 23:57 04:37 RBC (4.30-5.90) m/uL Neutrophils # (1.3-7.7) k/uL Lymphocytes # (1.0-4.8) k/uL APTT (22.0-30.0) sec Potassium 3.3 L (3.5-5.1) mmol/L Creatinine 0.59 L (0.66-1.25) mg/dL Glucose 121 H (74-99) mg/dL POC Glucose (mg/dL) 119 H 127 H (70-110) mg/dL Calcium 7.7 L (8.4-10.2) mg/dL Total Bilirubin 1.4 H (0.2-1.3) mg/dL AST 82 H (17-59) U/L ALT 70 H (4-49) U/L Total Protein 5.8 L (6.3-8.2) g/dL Albumin 2.6 L (3.5-5.0) g/dL 03/03/23 03/03/23 03/03/23 Range/Units 04:37 05:57 09:18 RBC 4.29 L (4.30-5.90) m/uL Neutrophils # 7.8 H (1.3-7.7) k/uL Lymphocytes # 0.9 L (1.0-4.8) k/uL APTT 49.6 H (22.0-30.0) sec Potassium (3.5-5.1) mmol/L Creatinine (0.66-1.25) mg/dL Glucose (74-99) mg/dL POC Glucose (mg/dL) 120 H (70-110) mg/dL Calcium (8.4-10.2) mg/dL Total Bilirubin (0.2-1.3) mg/dL AST (17-59) U/L ALT (4-49) U/L Total Protein (6.3-8.2) g/dL Albumin (3.5-5.0) g/dL 03/03/23 Range/Units 11:37 RBC (4.30-5.90) m/uL Neutrophils # (1.3-7.7) k/uL Lymphocytes # (1.0-4.8) k/uL APTT (22.0-30.0) sec Potassium (3.5-5.1) mmol/L Creatinine (0.66-1.25) mg/dL Glucose (74-99) mg/dL POC Glucose (mg/dL) 153 H (70-110) mg/dL Calcium (8.4-10.2) mg/dL Total Bilirubin (0.2-1.3) mg/dL AST (17-59) U/L ALT (4-49) U/L Total Protein (6.3-8.2) g/dL Albumin (3.5-5.0) g/dL Microbiology - Last 24 Hours (Table) 02/25/23 05:19 Blood Culture - Final Blood Assessment and Plan Assessment: * Acute onset with high grade fever and leukocytosis and severe encephalopathy: Unknown exact cause. Per Dr. Mills had nuchal and generalized rigidity and some tremulousness. CSF is negative for meningoencephalitis---His fever and leukocytosis has improved but he continues to be slow responding with generalized weakness. * Acute metabolic encephalopathy likely from severe pneumonia * SIRS, pneumonia * Acute rhabdomyolysis, resolving * Elevated cardiac enzymes * New onset atrial fibrillation currently on heparin IV drip. * History of bilateral shoulder pain/arthritis * History of bilateral knee replacement. Plan: * CT head was performed 02/28/2023 revealed no acute intracranial process. Nonspecific white matter changes, likely secondary to chronic small vessel ischemic disease. I personally reviewed CT head, agree with the findings. * MRI Brain w/ and w/o: Was reported as no evidence for encephalitis. No evidence of intracranial mass, acute/subacute infarct or abnormal enhancement. Nonspecific white matter changes, likely related to small vessel ischemic disease. * Initial EEG revealed background slowing and disorganization of mild degree suggestive of encephalopathy. There is no epileptiform activity. * EEG performed on 03/01/23 was abnormal due to background slowing of moderate degree consistent with encephalopathy. No epileptiform activity was seen. When compared to the initial EEG from 02/24/2023, the background seems to have gotten worse. * Chest x-ray performed today revealed worsening bilateral multifocal opacities consistent with worsening edema and/or multifocal acute infiltrates. Pulmonary, ID and cardiology on on board. * CSF performed 02/24/2023 was colorless and clear. CSF glucose 52, protein 86 (12-60). WBC count 4, RBCs 358. Comprehensive viral detection negative. Pending west nile virus. * Patient is currently on Zosyn for possible pneumonia. I.D. is on board. * He was started on Keppra 750 mg twice a day for now by Dr. Mills and he recommended to start tapering off Keppra, when mentation improves. * I ordered MRI Cervical spine w/ and w/o since having generalized pain with weakness. Unsure exact cause of fevers with leukocytosis. * Cardiology on board for new onset atrial fibrillation. Patient currently on heparin drip. * CK has drastically improved. * Discussed with patient's daughter and . Will continue to follow. Time with Patient: Less than 30
[2023-03-03 18:42] LABS: Glucose,Whole Blood 144 mg/dL (70-110)
--- NOTE | 2023-03-03 20:18 | P.PN ---
Subjective Progress Note Date: 03/03/23 Principal diagnosis: Fever Patient is a 77-year-old male presenting to the hospital y after the patient was found to be unresponsive by the , patient has been febrile initial testing negative including LP which was only mildly elevated protein. On today's evaluation that is 03/03/2023, the patient is afebrile, the patient is breathing comfortably on 3L nasal cannula oxygen, the patient responded to his name and also followed simple questions by nodding of his head patient did have NG for feeding which he is tolerating , no vomiting or diarrhea has been reported patient white count is normal at 8.3 creatinine 0.61 Objective - Vital Signs Vital signs: Vital Signs Temp 98.1 F 03/03/23 08:00 Pulse 137 H 03/03/23 08:00 Resp 18 03/03/23 08:00 BP 135/96 03/03/23 08:00 Pulse Ox 97 03/03/23 08:00 FiO2 40 03/03/23 11:05 Intake & Output 03/02/23 03/03/23 03/03/23 18:59 06:59 18:59 Intake Total 455.5 725 135.372 Output Total 190 825 Balance 265.5 -100 135.372 Weight 106.9 kg 107.6 kg Intake: IV 330 75 Piperacillin-Tazobactam 3 100 .375 gm In Sodium Chloride 0.9% 100 ml @ 25 mls/hr IVPB Q8HR [facility] Rx# :[id number] Sodium Chloride 0.9% 1, 230 75 000 ml @ 75 mls/hr IV . [id number] [facility] Rx#:[id number] Intake, IV Titration 125.5 250 135.372 Amount Diltiazem 125 mg In 125.5 Sodium Chloride 0.9% 100 ml @ Per Protocol IV .Q0M [facility] Rx#:[id number] Heparin Sod,Pork in 0.45% 250 135.372 NaCl 25,000 unit In 0.45 % NaCl 1 250ml.bag @ 9. 355 UNITS/KG/HR 10 mls/hr IV .Q24H [facility] Rx#: [id number] Tube Feeding 280 Other 120 Output: Urine 190 825 Other: Voiding Method Indwelling Catheter Indwelling Catheter External Catheter - Exam GENERAL DESCRIPTION: An elderly male lying in bed in no distress RESPIRATORY SYSTEM: Unlabored breathing , coarse breath sounds bilaterally HEART: S1 S2 regular rate and rhythm , ABDOMEN: Soft , no tenderness EXTREMITIES: No edema feet - Labs CBC & Chem 7: 03/03/23 09:18 03/03/23 09:18 Labs: Abnormal Lab Results - Last 24 Hours (Table) 03/02/23 03/02/23 03/03/23 Range/Units 17:39 23:57 04:37 RBC (4.30-5.90) m/uL Neutrophils # (1.3-7.7) k/uL Lymphocytes # (1.0-4.8) k/uL APTT (22.0-30.0) sec Potassium 3.3 L (3.5-5.1) mmol/L Creatinine 0.59 L (0.66-1.25) mg/dL Glucose 121 H (74-99) mg/dL POC Glucose (mg/dL) 119 H 127 H (70-110) mg/dL Calcium 7.7 L (8.4-10.2) mg/dL Total Bilirubin 1.4 H (0.2-1.3) mg/dL AST 82 H (17-59) U/L ALT 70 H (4-49) U/L Total Protein 5.8 L (6.3-8.2) g/dL Albumin 2.6 L (3.5-5.0) g/dL 03/03/23 03/03/23 03/03/23 Range/Units 04:37 05:57 09:18 RBC 4.29 L (4.30-5.90) m/uL Neutrophils # 7.8 H (1.3-7.7) k/uL Lymphocytes # 0.9 L (1.0-4.8) k/uL APTT 49.6 H (22.0-30.0) sec Potassium (3.5-5.1) mmol/L Creatinine (0.66-1.25) mg/dL Glucose (74-99) mg/dL POC Glucose (mg/dL) 120 H (70-110) mg/dL Calcium (8.4-10.2) mg/dL Total Bilirubin (0.2-1.3) mg/dL AST (17-59) U/L ALT (4-49) U/L Total Protein (6.3-8.2) g/dL Albumin (3.5-5.0) g/dL Microbiology - Last 24 Hours (Table) 02/25/23 05:19 Blood Culture - Final Blood Assessment and Plan (1) Fever Current Visit: Yes Status: Acute Code(s): R50.9 - FEVER, UNSPECIFIED SNOMED Code(s): 079830158 (2) Pneumonia Current Visit: Yes Status: Acute Code(s): J18.9 - PNEUMONIA, UNSPECIFIED OR GANISM SNOMED Code(s): 610197006 Plan: 1patient with SIRS in this patient with a fever elevated white count tachycardia with significant mental status changes high clinical suspicious for possible encephalitis/meningitis however the patient LP is relatively clear only mildly elevated protein of 86 patient chest x-ray negative for pneumonia urine has been negative mildly elevated liver enzymes and the patient did have evidence of rhabdomyolysis as the patient has been on the floor for more than 12 hours however no evidence of any bruising or injury has been noticed abdominal soft on clinical examination 2- ultrasound of the abdomen sludge versus artifact in the gallbladder no other abnormality noticed 3- hepatitis panel is negative, blood and CSF cultures so far negative and urine culture were negative 4Patient is slowly clinically improving, the patient Fever has resolved and white count has normalized, still waiting on [facility] serology on CSF 5- patient to continue with Zosyn and continue with supportive care son at the bedside , questions answered Dictation was produced using [employer] dictation software. please excuse any grammatical, word or spelling errors. Time with Patient: Less than 30
[2023-03-04 00:01] LABS: Glucose,Whole Blood 117 mg/dL (70-110)
[2023-03-04] MEDS: PIPERACILLIN-TAZOBACTAM 3.375 GM in SODIUM CHLORIDE 0.9% 100 ML IVPB SCH ×4 (00:30→23:01)
[2023-03-04 04:54] LABS: ALT 92 U/L (4-49); AST 84 U/L (17-59); African American GFR (CKD) >90 (>60 ml/min/1.73 sqM); Albumin 2.7 g/dL (3.5-5.0); Alkaline Phosphatase 48 U/L (38-126); Anion Gap 4 mmol/L; Blood Urea Nitrogen 19 mg/dL (9-20); Calcium 7.9 mg/dL (8.4-10.2); Carbon Dioxide 30 mmol/L (22-30); Chloride 106 mmol/L (98-107); Glucose 129 mg/dL (74-99); Non-African American GFR(CKD) >90 (>60 ml/min/1.73 sqM); Potassium 3.5 mmol/L (3.5-5.1); Sodium 140 mmol/L (137-145); Total Bilirubin 1.3 mg/dL (0.2-1.3); Total Protein 5.8 g/dL (6.3-8.2)
[2023-03-04] MEDS: POTASSIUM BICARBONATE/CIT AC 20 MEQ TABLET.EFF NG-TUBE SCH ×4 (05:59→23:01)
[2023-03-04 06:08] LABS: Glucose,Whole Blood 111 mg/dL (70-110)
[2023-03-04] MEDS ORDERED: DILTIAZEM DRIP BOLUS FROM BAG 1 MG SOLN IV ONE (06:32)
[2023-03-04] MEDS ORDERED: SODIUM CHLORIDE 0.9% 1,000 ML IV ONE (06:45)
[2023-03-04] MEDS: DILTIAZEM 125 MG in SODIUM CHLORIDE 0.9% 100 ML IV SCH (06:46)
--- NOTE | 2023-03-04 07:17 | XR ---
EXAMINATION TYPE: XR chest 1V portable DATE OF EXAM: 03/04/2023 COMPARISON: 26.3 INDICATION: NG tube placement TECHNIQUE: Single frontal view of the chest is obtained. FINDINGS: The heart size is normal. The pulmonary vasculature is normal. The lungs are clear. Nasogastric tube is in place with tip in the left upper quadrant of the abdomen. IMPRESSION: 1. No acute pulmonary process. 2. NG tube tip left upper quadrant abdomen.
[2023-03-04 07:59] LABS: Glucose,Whole Blood 108 mg/dL (70-110)
[2023-03-04 08:00] LABS: ABG Base Excess 5.8 mmol/L; ABG HCO3 29 mmol/L (21-25); ABG Oxygen Saturation 99.2 % (94-97); ABG PCO2 40 mmHg (35-45); ABG PH 7.48 (7.35-7.45); ABG PO2 225 mmHg (83-108); ABG TCO2 31 mmol/L (19-24); Allen Test Performed? Yes
[2023-03-04] MEDS: PANTOPRAZOLE 40 MG/10 ML VIAL IVP SCH (08:32)
[2023-03-04] MEDS: levETIRAcetam IV 500 MG/5 ML VIAL IVP SCH ×2 (08:32→20:54)
[2023-03-04] MEDS: APIXABAN 5 MG TAB PO SCH ×2 (08:33→20:54)
[2023-03-04] MEDS: ACETAMINOPHEN TAB 325 MG TAB PO PRN (08:33)
[2023-03-04] MEDS: LOSARTAN 25 MG TAB PO SCH (08:34)
[2023-03-04] MEDS: METOPROLOL TARTRATE 50 MG TAB PO SCH ×2 (08:36→20:54)
--- NOTE | 2023-03-04 09:46 | P.PN ---
Subjective Progress Note Date: 03/04/23 The patient is a 77-year-old male who was admitted to the hospital with a mechanical fall. The patient's had found him down on the ground and it is unknown if he had a syncopal episode. Cardiology was consulted for atrial fibrillation. He was given amiodarone bolus, which was subsequently discontin ued and started on a Cardizem drip where he has remained rate controlled. Hospital course is also a current candidate by septicemia and encephalopathy. The patient appears more disoriented and ill at the time of my exam today. According to nursing staff there is concern that the patient may have aspirated on tube feeding. He has labored breathing. He responds to voice but is not answering questions. GENERAL: Well-appearing, well-nourished. Mild distress NECK: Supple without JVD or thyromegaly. LUNGS: Breath sounds diminished to auscultation bilaterally. Respiration equal and unlabored. Lung sounds coarse. HEART: Irregular rate and rhythm without murmurs, rubs or gallops. S1 and S2 heard. EXTREMITIES: Normal range of motion, no edema. No clubbing or cyanosis. Peripheral pulses intact and strong. TELEMETRY: A. fib with heart rates in the low 100s on Cardizem drip LABS: Sodium 140, potassium 3.5, BUN 19, creatinine 0.66, AST 84, ALT 92 IMPRESSION: Status post mechanical fall Persistent atrial fibrillation Hypertension Encephalopathy Septicemia Elevated liver enzymes PLAN: Increase metoprolol to 150 mg twice daily Continue low-dose Cardizem drip/wean as tolerated for her heart rate less than 100 Continue supportive treatment with aggressive pulmonary hygiene Further recommendations based on clinical course I am dictating on behalf of Dr Larry Neil's history/physical and assessment/plan. Objective - Vital Signs Vital signs: Vital Signs Temp 99.0 F 03/04/23 08:20 Pulse 126 H 03/04/23 08:20 Resp 16 03/04/23 08:20 BP 125/93 03/04/23 08:20 Pulse Ox 97 03/04/23 04:00 FiO2 92 03/04/23 08:20 Intake & Output 03/03/23 03/04/23 03/04/23 18:59 06:59 18:59 Intake Total 042.864 7673 Output Total 1750 850 175 Balance -884.628 430 -175 Weight 103.6 kg Intake: IV 100 100 Piperacillin-Tazobactam 3 100 100 .375 gm In Sodium Chloride 0.9% 100 ml @ 25 mls/hr IVPB Q8HR [facility] Rx# :[id number] Intake, IV Titration 215.372 240 Amount Heparin Sod,Pork in 0.45% 135.372 NaCl 25,000 unit In 0.45 % NaCl 1 250ml.bag @ 9. 355 UNITS/KG/HR 10 mls/hr IV .Q24H [facility] Rx#: [id number] Sodium Chloride 0.9% 1, 80 240 000 ml @ 20 mls/hr IV . Q24H [facility] Rx#:[id number] Tube Feeding 450 820 Other 100 120 Output: Urine 1750 850 175 Other: Voiding Method External Catheter External Catheter External Catheter # Bowel Movements 1 - Labs CBC & Chem 7: 03/03/23 09:18 03/04/23 04:16 Labs: Abnormal Lab Results - Last 24 Hours (Table) 03/03/23 03/03/23 03/03/23 Range/Units 09:18 11:37 18:40 RBC 4.29 L (4.30-5.90) m/uL Neutrophils # 7.8 H (1.3-7.7) k/uL Lymphocytes # 0.9 L (1.0-4.8) k/uL ABG pH (7.35-7.45) ABG pO2 (83-108) mmHg ABG HCO3 (21-25) mmol/L ABG Total CO2 (19-24) mmol/L ABG O2 Saturation (94-97) % Glucose (74-99) mg/dL POC Glucose (mg/dL) 153 H 144 H (70-110) mg/dL Calcium (8.4-10.2) mg/dL AST (17-59) U/L ALT (4-49) U/L Total Protein (6.3-8.2) g/dL Albumin (3.5-5.0) g/dL 03/04/23 03/04/23 03/04/23 Range/Units 00:00 04:16 06:07 RBC (4.30-5.90) m/uL Neutrophils # (1.3-7.7) k/uL Lymphocytes # (1.0-4.8) k/uL ABG pH (7.35-7.45) ABG pO2 (83-108) mmHg ABG HCO3 (21-25) mmol/L ABG Total CO2 (19-24) mmol/L ABG O2 Saturation (94-97) % Glucose 129 H (74-99) mg/dL POC Glucose (mg/dL) 117 H 111 H (70-110) mg/dL Calcium 7.9 L (8.4-10.2) mg/dL AST 84 H (17-59) U/L ALT 92 H (4-49) U/L Total Protein 5.8 L (6.3-8.2) g/dL Albumin 2.7 L (3.5-5.0) g/dL 03/04/23 Range/Units 07:58 RBC (4.30-5.90) m/uL Neutrophils # (1.3-7.7) k/uL Lymphocytes # (1.0-4.8) k/uL ABG pH 7.48 H (7.35-7.45) ABG pO2 225 H (83-108) mmHg ABG HCO3 29 H (21-25) mmol/L ABG Total CO2 31 H (19-24) mmol/L ABG O2 Saturation 99.2 H (94-97) % Glucose (74-99) mg/dL POC Glucose (mg/dL) (70-110) mg/dL Calcium (8.4-10.2) mg/dL AST (17-59) U/L ALT (4-49) U/L Total Protein (6.3-8.2) g/dL Albumin (3.5-5.0) g/dL
[2023-03-04] MEDS: IOPAMIDOL CONTRAST (ORAL USE) VIAL PO PRN ×2 (10:05→10:42)
[2023-03-04] MEDS: SODIUM CHLORIDE 0.9% 1,000 ML IV SCH (10:12)
--- NOTE | 2023-03-04 11:48 | P.PN ---
Subjective Progress Note Date: 03/04/23 Principal diagnosis: Fever Patient is a 77-year-old male presenting to the hospital y after the patient was found to be unresponsive by the , patient has been febrile initial testing negative including LP which was only mildly elevated protein. On today's evaluation that is 03/04/2023, the patient remains to be afebrile, the patient apparently did have an episode of aspiration responding to the nursing staff and the patient was requiring more supplemental oxygen however currently is down to 3 L nasal cannula oxygen patient did respond to his name and also some simple question no diarrhea has been reported patient did have white count of 9.8 years of yesterday creatinine 0.66, cultures has been negative Objective - Vital Signs Vital signs: Vital Signs Temp 99.0 F 03/04/23 08:20 Pulse 126 H 03/04/23 08:20 Resp 16 03/04/23 08:20 BP 125/93 03/04/23 08:20 Pulse Ox 97 03/04/23 04:00 FiO2 92 03/04/23 08:20 Intake & Output 03/03/23 03/04/23 03/04/23 18:59 06:59 18:59 Intake Total 736.444 7044 17.75 Output Total 1750 850 175 Balance -884.628 430 -157.25 Weight 103.6 kg Intake: IV 100 100 Piperacillin-Tazobactam 3 100 100 .375 gm In Sodium Chloride 0.9% 100 ml @ 25 mls/hr IVPB Q8HR [facility] Rx# :[id number] Intake, IV Titration 215.372 240 17.75 Amount Diltiazem 125 mg In 17.75 Sodium Chloride 0.9% 100 ml @ 5 MG/HR 5 mls/hr IV .Q24H [facility] Rx#:[id number] Heparin Sod,Pork in 0.45% 135.372 NaCl 25,000 unit In 0.45 % NaCl 1 250ml.bag @ 9. 355 UNITS/KG/HR 10 mls/hr IV .Q24H [facility] Rx#: [id number] Sodium Chloride 0.9% 1, 80 240 000 ml @ 20 mls/hr IV . Q24H [facility] Rx#:[id number] Tube Feeding 450 820 Other 100 120 Output: Urine 1750 850 175 Other: Voiding Method External Catheter External Catheter External Catheter # Bowel Movements 1 - Exam GENERAL DESCRIPTION: An elderly male lying in bed in no distress RESPIRATORY SYSTEM: Unlabored breathing , coarse breath sounds bilaterally HEART: S1 S2 regular rate and rhythm , ABDOMEN: Soft , no tenderness EXTREMITIES: No edema feet - Labs CBC & Chem 7: 03/03/23 09:18 03/04/23 04:16 Labs: Abnormal Lab Results - Last 24 Hours (Table) 03/03/23 03/03/23 03/04/23 Range/Units 11:37 18:40 00:00 ABG pH (7.35-7.45) ABG pO2 (83-108) mmHg ABG HCO3 (21-25) mmol/L ABG Total CO2 (19-24) mmol/L ABG O2 Saturation (94-97) % Glucose (74-99) mg/dL POC Glucose (mg/dL) 153 H 144 H 117 H (70-110) mg/dL Calcium (8.4-10.2) mg/dL AST (17-59) U/L ALT (4-49) U/L Total Protein (6.3-8.2) g/dL Albumin (3.5-5.0) g/dL 03/04/23 03/04/23 03/04/23 Range/Units 04:16 06:07 07:58 ABG pH 7.48 H (7.35-7.45) ABG pO2 225 H (83-108) mmHg ABG HCO3 29 H (21-25) mmol/L ABG Total CO2 31 H (19-24) mmol/L ABG O2 Saturation 99.2 H (94-97) % Glucose 129 H (74-99) mg/dL POC Glucose (mg/dL) 111 H (70-110) mg/dL Calcium 7.9 L (8.4-10.2) mg/dL AST 84 H (17-59) U/L ALT 92 H (4-49) U/L Total Protein 5.8 L (6.3-8.2) g/dL Albumin 2.7 L (3.5-5.0) g/dL Assessment and Plan (1) Fever Current Visit: Yes Status: Acute Code(s): R50.9 - FEVER, UNSPECIFIED SNOMED Code(s): 522360341 (2) Pneumonia Current Visit: Yes Status: Acute Code(s): J18.9 - PNEUMONIA, UNSPECIFIED ORGANISM SNOMED Code(s): 431336780 Plan: 1patient with SIRS in this patient with a fever elevated white count tachycardia with significant mental status changes high clinical suspicious for possible encephalitis/meningitis however the patient LP is relatively clear only mildly elevated protein of 86 patient chest x-ray negative for pneumonia urine has been negative mildly elevated liver enzymes and the patient did have evidence of rhabdomyolysis as the patient has been on the floor for more than 12 hours however no evidence of any bruising or injury has been noticed abdominal soft on clinical examination 2- ultrasound of the abdomen sludge versus artifact in the gallbladder no other abnormality noticed 3- hepatitis panel is negative, blood and CSF cultures so far negative and urine culture were negative 4 [facility] serology on CSF is currently pending 5- patient to continue with Zosyn CT chest abdominal pelvis has been ordered by traffic control officer results will be followed Dictation was produced using [employer] dictation software. please excuse any grammatical, word or spelling errors. Time with Patient: Less than 30
[2023-03-04 12:05] LABS: Glucose,Whole Blood 101 mg/dL (70-110)
--- NOTE | 2023-03-04 12:30 | CT ---
EXAMINATION TYPE: CT ChestAbdPelvis w con DATE OF EXAM: 03/04/2023 COMPARISON: None HISTORY: 1798.1 CT DLP: 1798.1 mGycm CONTRAST: CT scan of the chest, abdomen and pelvis is performed with Oral Contrast and with IV Contrast, patien t injected with 100 mL of Isovue 300. CT Chest: LUNGS: There are bilateral pleural effusions with basilar compressive atelectasis. Scattered groundgl ass infiltrates are seen within the upper lung myers bilaterally. Acute inflammatory process is not excluded. MEDIASTINUM: Thoracic aorta is of normal caliber. The heart is mildly enlarged. No evidence for me diastinal mass or adenopathy. HILAR STRUCTURES: No evidence for mass. No hilar adenopathy is appreciated. OTHER: No significant abnormality. CONTRAST CT ABDOMEN AND PELVIS FINDINGS: LIVER/GB: The gallbladder is distended at 8.7 cm. There is a gallstone near the gallbladder neck. No space occupying hepatic lesion. Biliary tree is of normal caliber. PANCREAS: No inflammation. No distinct mass. SPLEEN: No splenic enlargement. No lesion seen. ADRENALS: No nodule. No thickening. KIDNEYS/BLADDER: No hydronephrosis. No nephrolithiasis. No distinct renal mass. BOWEL: Nonvisualization of the appendix. Normal bowel caliber. No inflammation. NG tube is seen cour sing into the stomach. GENITAL ORGANS: No gross abnormality. LYMPH NODES: No greater than 1cm abdominal or pelvic lymph nodes are appreciated. AORTA: No significant abnormality. OSSEOUS STRUCTURES: No significant abnormality is seen. OTHER: There is thickening and enlargement of the right psoas musculature and iliacus musculature wit h heterogeneity seen. Findings are likely reflective of retroperitoneal hemorrhage however On image # 100 there is a small focus of decreased attenuation measuring 1.3 cm with possible small focus of air . Small abscess is not excluded. There is adjacent strandy attenuation. IMPRESSION: 1. There is thickening and enlargement of the right psoas musculature and iliacus musculature with he terogeneity seen. Findings are likely reflective of retroperitoneal hemorrhage however On image #100 there is a small focus of decreased attenuation measuring 1.3 cm with possible small focus of air. Sm all abscess is not excluded. 2. Basilar pleural effusions and compressive atelectasis with scattered groundglass infiltrates.
--- NOTE | 2023-03-04 13:05 | P.PN ---
Subjective Progress Note Date: 03/04/23 I am seeing this patient in new consultation today 02/24/2023 after the patient presented to the ER yesterday evening with concerns of altered mental status. Patient is a 77-year-old white male with a limited past medical history. Apparently, the patient's found him down on the ground early yesterday morning confused. His last known well time was the night prior. Nonenhanced brain CT on arrival shows age-related atrophic and chronic small vessel ischemia without any obvious acute cranial process. Initial chest x-ray on arrival showed fullness around the right hilum likely related patient rotation. Underlying infiltrate or mass not excluded. CBC shows leukocytosis with a WBC count of 16, hemoglobin 13.5, hematocrit 39.1, platelets 109,000. BMP shows sodium 136, potassium 3.7, chloride 110, serum bicarb 17, BUN 36, creatinine 1.22, glucose 102. LFTs are mildly elevated. Troponins are 1.66 and 1.9. Urinalysis not particularly concerning for UTI. Negative for influenza, RSV, COVID-19. Patient was originally admitted to the floor, and was transferred to the ICU last night for tachycardia and hypotension. Yesterday, he was given a total of 2.5 L normal saline bolus. On my evaluation, the patient is lying in bed, extremities are rigid, he is febrile with a t-max of 103 F. He is on 2 L/m nasal cannula, oxygenating around 94%. He is disoriented and unable to provide any meaningful information. He mostly mumbles. I did speak to the patient's daughter, who denies any recent sinus, ear, or pulmonary infections. I am concerned for possible encephalitis or meningitis. I spoke with neurology last night, and updated them on the patient. There is an EEG pending for the morning. Patient is empirically covered with combination of ampicillin, vancomycin, and Rocephin. Infectious disease consult was also placed. Heart rhythm is currently normal sinus on bedside monitor. Blood pressure is normotensive. Normal saline is infusing at 130 ML's per hour. No need for vasopressors at this time. Patient will need a thorough neurological workup. He is being monitored in the intensive care unit in the meantime. Patient was seen and examined today on 02/25/2023, remains in the ICU, spiking temperatures intermittently, he had a T-max of 102.9. Spinal fluid workup so far is negative for bacterial meningitis. However viral meningitis/encephalitis is not entirely ruled out, and workup is still in progress. In the meantime the patient is being followed by many consultants including infectious disease and urology. Apparently his EEG was negative for seizure activity. Labs today showed leukocytosis with WBC of 15.1 hemoglobin is normal electrolytes are normal bicarb is 20 creatinine is 1.7, improved compared to his baseline on admission liver enzymes remain at the time elevated ammonia level is normal. Drug screen was negative. CPK was elevated on admission, no CPK noted today. His pro-calcitonin level 0.31. Ultrasound of the abdomen and pelvis showed slud ge in the gallbladder, it also showed hepatomegaly, otherwise limited exam Reevaluated today on 02/26/70, remains in the ICU on 3 L nasal cannula. Patient continues to have poor mental status, seems to be obtunded, at times he may follow simple instructions like wiggling toes but most of the time he doesn't. Patient is snoring and is having episodes of apnea hence ABG was done and showed a pO2 of 82 pCO2 37 pH of 7.35. Continues to have relatively high CPK but improving 24044, renal functioning continues to be about the same. Patient has a low bicarb of 16, and I'm recommending 1 amp of bicarb to be given. So far all the diagnostic workup is nondiagnostic the West Nile virus workup is still pending. Patient did have elevated WBC count elevated pro calcitonin. Mental status is not showing any improvement whatsoever. Neurology is following. Chest x-ray continues to show left basilar atelectasis, strongly doubt pneumonia. Patient remains empirically on antibiotics. He is on Zosyn. Remains on IV fluid at 150 ML per hour in the form of 1.9 normal saline. Patient was reevaluated today on 02/27/2023, patient remains in the ICU, he is on 2 L nasal cannula, his IV fluids remains at 1 50 mL per hour in the form of 0.9 normal saline, patient is scheduled to have an MRI today. Patient seems to be more responsive today, at least he is following instructions, his speech however remains quite garbled. He knows that he is in the hospital, he knew that it is 2022, but again his speech is very quite garbled and hard to understand. Considering his presentation I believe this is a significant improvement compared to his mental status upon presentation. CBC showed Fernie Smith is better at 13.8 hemoglobin is 14.4. Basic metabolic profile is normal, renal profile is normal CPK remains a bit elevated but trending down it is over 8000 Patient was seen again on 02/28/2023 patient remains in the ICU, last night he developed an episode of atrial fibrillation with RVR, he is now on Cardizem at 2.5 mg per hour, is also on heparin drip. Remains on IV fluid at 13 0 mL per hour. CPK is down to 5256, mental status is still basically about the same as yesterday, patient seems to comprehend, he knows where he is, he knows the year, but his speech is very garbled. And seems to be very slow. Unable to swallow, hence I'm recommending a nasogastric tube to be placed and start enteral feeding on this patient sometime today. Patient was supposed to have an MRI yesterday, but because of atrial fibrillation and RVR, MRI was canceled overall the patient remains encephalopathic, but slowly improving compared to his baseline upon his initial presentation. Neurology on the case still concerned about the possibility of encephalitis/meningitis and concerned about West Nile virus, workup is still pending in the meantime the patient remains on Zosyn empirically. He is also on Keppra although his EEG showed no evidence of epileptiform focus. Patient was reevaluated today on 03/01/2023, remains on 4 L nasal cannula neurologically the patient is about the same, patient is awake, follows instructions, knows where he is, however his speech remains quite garbled. Remains on Zosyn empirically for presumptive aspiration, chest x-ray today showed worsening bilateral opacities, not clear whether this is a worsening edema or multifocal infiltrates nonetheless I will cut down his IV fluids and I will give the patient a trial of Lasix 40 mg IV push. Patient remains on aspiration precautions, could not have a nasogastric tube placed yesterday. Will cautiously feed as the patient may have some microaspiration labs today showed relatively normal CBC and normal electrolytes and normal renal profile. CPK is down to 2008 The patient is seen today 03/02/2023 in follow-up in the intensive care unit. He is currently resting comfortably in bed. Awake. Following instructions. Answering questions. Speech is still quite garbled. He is still quite weak. Chest x-ray shows improved aeration of the lungs with persistent airspace opacities scattered throughout the lungs. No pneumothorax. No large pleural effusion. Blood cultures revealed no growth. Urine culture revealed no growth. Serum spinal fluid culture revealed no growth. West Nile test still pending. White count 9.7. Hemoglobin 14.2. Platelets 160. Sodium 141. Potassium 3.7. Bicarb 29. BUN 21. Creatinine 0.61. Glucose 109. AST 82. ALT 69. Creatinine kinase 719. He did have issues with atrial fibrillation and rapid ventricular response. He's currently on a Cardizem drip at 10 mg per hour. Heparin drip. He is being nourished with vital AF at 15 ML's per hour via nasogastric tube. Pro-calcitonin 0.31. He remains on Zosyn. Maintain O2 saturations in the 90s on 2 L/m per nasal cannula. He remains afebrile. Hemodynamically stable. The patient is seen today 03/03/2023 in follow-up in the intensive care unit. He is currently on BiPAP 05/13 at 40% FiO2. MRI of the brain showed no evidence for encephalitis. No evidence of intracranial mass, acute/subacute infarct or abnormal enhancement. Chest x-ray reveals scattered parenchymal changes. Left basilar opacity. Essentially stable chest. Blood cultures revealed no growth. Urine culture revealed no growth. Cerebral spinal fluid cultures revealed no growth. White count 9.8. Hemoglobin 14.1. Platelets 180. Sodium 138. Potassium 3.7. Bicarb 30. BUN 19. Creatinine 0.59. Glucose 121. AST 82. ALT 70. He remains on a heparin drip. Remains in atrial fibrillation with better controlled ventricular response remains on Zosyn. He has been nourished with vital AF at 50 MLS per hour with a goal of 83. The patient is seen today 03/04/2023 in follow-up in the intensive care unit. Currently maintaining good O2 saturations in the 90s on 3 L/m per nasal cannula. Remains on Cardizem drip at 5 mg per hour. Normal saline at 20 ML's per hour. He is being nourished via nasogastric tube with vital AF at 75 ML's per hour with a goal of 83 ML's per hour. He did utilize BiPAP last night 19/01 and 50% FiO2. He had some episodes of atrial fibrillation with RVR again. He also had an episode of respiratory distress. Arterial blood gases revealed a pO2 of 225, pCO2 40 and a pH of 7.48. Chest x-ray did not reveal any acute changes. He remains slow to respond. His speech remains quite garbled. Currently in atrial fibrillation with a controlled ventricular rate. Sodium 140. Potassium 3.5. Bicarb 30. BUN 19. Creatinine 0.66. AST 84. ALT 92. Objective - Vital Signs Vital signs: Vital Signs Temp 98.9 F 03/04/23 11:07 Pulse 89 03/04/23 11:07 Resp 16 03/04/23 11:07 BP 111/78 03/04/23 11:07 Pulse Ox 96 03/04/23 11:07 FiO2 100 03/04/23 08:03 Intake & Output 03/03/23 03/04/23 03/04/23 18:59 06:59 18:59 Intake Total 634.825 1115 17.75 Output Total 1750 850 175 Balance -884.628 430 -157.25 Weight 103.6 kg Intake: IV 100 100 Piperacillin-Tazobactam 3 100 100 .375 gm In Sodium Chloride 0.9% 100 ml @ 25 mls/hr IVPB Q8HR [facility] Rx# :[id number] Intake, IV Titration 215.372 240 17.75 Amount Diltiazem 125 mg In 17.75 Sodium Chloride 0.9% 100 ml @ 5 MG/HR 5 mls/hr IV .Q24H [facility] Rx#:[id number] Heparin Sod,Pork in 0.45% 135.372 NaCl 25,000 unit In 0.45 % NaCl 1 250ml.bag @ 9. 355 UNITS/KG/HR 10 mls/hr IV .Q24H [facility] Rx#: [id number] Sodium Chloride 0.9% 1, 80 240 000 ml @ 20 mls/hr IV . Q24H [facility] Rx#:[id number] Tube Feeding 450 820 Other 100 120 Output: Urine 1750 850 175 Other: Voiding Method External Catheter External Catheter External Catheter # Bowel Movements 1 - Exam GENERAL EXAM: Alert, slow to respond, garbled speech but appropriate, on 3 L nasal cannula, comfortable in no apparent distress. HEAD: Normocephalic. EYES: Normal reaction of pupils, equal size. NOSE: Clear with pink turbinates. THROAT: No erythema or exudates. NECK: No masses, no JVD. CHEST: No chest wall deformity. LUNGS: Equal air entry with few scattered rhonchi. CVS: S1 and S2 normal with no audible murmur, irregular rhythm. ABDOMEN: No hepatosplenomegaly, normal bowel sounds, no guarding or rigidity. SPINE: No scoliosis or deformity SKIN: No rashes CENTRAL NERVOUS SYSTEM: Slow to respond, garbled speech. Tone is normal in all 4 extremities. EXTREMITIES: There is no peripheral edema. No clubbing, no cyanosis. Peripheral pulses are intact. - Labs CBC & Chem 7: 03/03/23 09:18 03/04/23 04:16 Labs: Abnormal Lab Results - Last 24 Hours (Table) 03/03/23 03/04/23 03/04/23 Range/Units 18:40 00:00 04:16 ABG pH (7.35-7.45) ABG pO2 (83-108) mmHg ABG HCO3 (21-25) mmol/L ABG Total CO2 (19-24) mmol/L ABG O2 Saturation (94-97) % Glucose 129 H (74-99) mg/dL POC Glucose (mg/dL) 144 H 117 H (70-110) mg/dL Calcium 7.9 L (8.4-10.2) mg/dL AST 84 H (17-59) U/L ALT 92 H (4-49) U/L Total Protein 5.8 L (6.3-8.2) g/dL Albumin 2.7 L (3.5-5.0) g/dL 03/04/23 03/04/23 Range/Units 06:07 07:58 ABG pH 7.48 H (7.35-7.45) ABG pO2 225 H (83-108) mmHg ABG HCO3 29 H (21-25) mmol/L ABG Total CO2 31 H (19-24) mmol/L ABG O2 Saturation 99.2 H (94-97) % Glucose (74-99) mg/dL POC Glucose (mg/dL) 111 H (70-110) mg/dL Calcium (8.4-10.2) mg/dL AST (17-59) U/L ALT (4-49) U/L Total Protein (6.3-8.2) g/dL Albumin (3.5-5.0) g/dL Assessment and Plan Assessment: Encephalitis, suspect sepsis with underlying occult infection of unclear etiology. Further workup is pending. West Nile virus workup is pending. Computed tomography scan of the chest abdomen and pelvis revealed thickening and enlargement of the right psoas musculature and iliacus musculature with heterogenous seen. Findings are likely reflective of retroperitoneal hemorrhage however there is a small focus of decreased attenuation measuring 1.3 cm with possible small focus of air. Small abscess is not excluded. Basilar pleural effusions and compressive atelectasis for scattered groundglass infiltrates. Acute febrile illness and sepsis, no obvious infectious process identified yet, all cultures have been negative so far. Leukocytosis, resolved, possible aspiration pneumonia. Currently on Zosyn, procalcitonin 0.31. Acute rhabdomyolysis, significantly elevated CPK, improving with hydration, CPK is down to 719 Elevated LFTs, viral studies are negative, ultrasound showed hepatomegaly Elevated troponins, possibly related to supply/demand mismatch Atrial fibrillation with rapid ventricular response requiring Cardizem, heparin drip Plan: The patient was seen and evaluated Chest x-ray, ABGs, labs and medications reviewed CT scan of the chest abdomen pelvis reviewed We'll order tagged WBC testing Currently on BiPAP alternating with nasal cannula Transitioned to Eliquis Being nourished via NG tube with vital AF Remains on Zosyn We will continue to follow I have personally seen and examined the patient, performed the documentation and the assessment and plan as written. Number of minutes spent on the visit: 10.
--- NOTE | 2023-03-04 13:10 | P.PN ---
Subjective Progress Note Date: 03/04/23 I am following up with the patient and he continues to be confused. Objective - Vital Signs Vital signs: Vital Signs Temp 98.9 F 03/04/23 11:07 Pulse 89 03/04/23 11:07 Resp 16 03/04/23 11:07 BP 111/78 03/04/23 11:07 Pulse Ox 96 03/04/23 11:07 FiO2 100 03/04/23 08:03 Intake & Output 03/03/23 03/04/23 03/04/23 18:59 06:59 18:59 Intake Total 581.864 4963 17.75 Output Total 1750 850 175 Balance -884.628 430 -157.25 Weight 103.6 kg Intake: IV 100 100 Piperacillin-Tazobactam 3 100 100 .375 gm In Sodium Chloride 0.9% 100 ml @ 25 mls/hr IVPB Q8HR [facility] Rx# :[id number] Intake, IV Titration 215.372 240 17.75 Amount Diltiazem 125 mg In 17.75 Sodium Chloride 0.9% 100 ml @ 5 MG/HR 5 mls/hr IV .Q24H [facility] Rx#:[id number] Heparin Sod,Pork in 0.45% 135.372 NaCl 25,000 unit In 0.45 % NaCl 1 250ml.bag @ 9. 355 UNITS/KG/HR 10 mls/hr IV .Q24H [facility] Rx#: [id number] Sodium Chloride 0.9% 1, 80 240 000 ml @ 20 mls/hr IV . Q24H [facility] Rx#:[id number] Tube Feeding 450 820 Other 100 120 Output: Urine 1750 850 175 Other: Voiding Method External Catheter External Catheter External Catheter # Bowel Movements 1 - Exam General: The patient is lying in bed and does not appear in acute distress. Neuro: Limited because of his condition. Patient is very drowsy but is minimally awake able to voice. He is oriented to self. He is very hypophonic and he stated 2020 and unsure if he said 2022 or just 2019. He followed very few minimal simple commands such as showing a thumbs up and wiggling the toes. Right pupil is about 4 mm and the left is about 2mm and reactive to light. No facial weakness. Motor: Strength is hard to assess because of his significant pain. Upon lifting his arms above he was in pain. He'll squeeze my hands equally bilaterally. He'll wiggle both toes but he would not raise bilateral legs above gravity. - Labs CBC & Chem 7: 03/03/23 09:18 03/04/23 04:16 Labs: Abnormal Lab Results - Last 24 Hours (Table) 03/03/23 03/04/23 03/04/23 Range/Units 18:40 00:00 04:16 ABG pH (7.35-7.45) ABG pO2 (83-108) mmHg ABG HCO3 (21-25) mmol/L ABG Total CO2 (19-24) mmol/L ABG O2 Saturation (94-97) % Glucose 129 H (74-99) mg/dL POC Glucose (mg/dL) 144 H 117 H (70-110) mg/dL Calcium 7.9 L (8.4-10.2) mg/dL AST 84 H (17-59) U/L ALT 92 H (4-49) U/L Total Protein 5.8 L (6.3-8.2) g/dL Albumin 2.7 L (3.5-5.0) g/dL 03/04/23 03/04/23 Range/Units 06:07 07:58 ABG pH 7.48 H (7.35-7.45) ABG pO2 225 H (83-108) mmHg ABG HCO3 29 H (21-25) mmol/L ABG Total CO2 31 H (19-24) mmol/L ABG O2 Saturation 99.2 H (94-97) % Glucose (74-99) mg/dL POC Glucose (mg/dL) 111 H (70-110) mg/dL Calcium (8.4-10.2) mg/dL AST (17-59) U/L ALT (4-49) U/L Total Protein (6.3-8.2) g/dL Albumin (3.5-5.0) g/dL Assessment and Plan Assessment: * Acute onset with high grade fever and leukocytosis and severe encephalopathy: Unknown exact cause. Per Dr. Mills had nuchal and generalized rigidity and some tremulousness. CSF is negative for meningoencephalitis---His fever and leukocytosis has improved but he continues to be slow responding with generalized weakness. * Acute metabolic encephalopathy likely from severe pneumonia * SIRS, pneumonia * Acute rhabdomyolysis, resolving * Elevated cardiac enzymes * New onset atrial fibrillation currently on heparin IV drip. * History of bilateral shoulder pain/arthritis * History of bilateral knee replacement. Plan: * CT head was performed 02/28/2023 revealed no acute intracranial process. Nonspecific white matter changes, likely secondary to chronic small vessel ischemic disease. I personally reviewed CT head, agree with the findings. * MRI Brain w/ and w/o: Was reported as no evidence for encephalitis. No evidence of intracranial mass, acute/subacute infarct or abnormal enhancement. Nonspecific white matter changes, likely related to small vessel ischemic disease. * Initial EEG revealed background slowing and disorganization of mild degree suggestive of encephalopathy. There is no epileptiform activity. * EEG performed on 03/01/23 was abnormal due to background slowing of moderate degree consistent with encephalopathy. No epileptiform activity was seen. When compared to the initial EEG from 02/24/2023, the background seems to have gotten worse. * Chest x-ray performed today revealed worsening bilateral multifocal opacities consistent with worsening edema and/or multifocal acute infiltrates. Pulmonary, ID and cardiology on on board. * CSF performed 02/24/2023 was colorless and clear. CSF glucose 52, protein 86 (12-60). WBC count 4, RBCs 358. Comprehensive viral detection negative. Pending west nile virus. * Patient is currently on Zosyn for possible pneumonia. I.D. is on board. * He was started on Keppra 750 mg twice a day for now by Dr. Mills and he recommended to start tapering off Keppra, when mentation improves. * Pending MRI Cervical spine w/ and w/o since having generalized pain with weakness. Unsure exact cause of fevers with leukocytosis. * I spoke with the ICU attending regarding this case and we agreed on pursuing NM wbc whole body. * Cardiology on board for new onset atrial fibrillation. Patient currently on heparin drip. * CK has drastically improved. * Discussed with ICU attending. Will continue to follow. Time with Patient: Less than 30
--- NOTE | 2023-03-04 14:08 | P.PN ---
Subjective Principal diagnosis: Altered mental status This is 77-year-old white male with no significant past medical history came in and septic shock and questionable pneumonia. He was significant tachycardia with hypotension and was placed in ICU for observation. He continues to have significant mental status changes. Question febrile seizure element. Temperature is improved IV Tylenol has been administered. Appreciate multiple consultants input. He is not able to answer questions today. I get the impression he does recognize me somewhat. Objective - Vital Signs Vital signs: Vital Signs Temp 98.9 F 03/04/23 11:07 Pulse 89 03/04/23 11:07 Resp 16 03/04/23 11:07 BP 111/78 03/04/23 11:07 Pulse Ox 96 03/04/23 11:07 FiO2 100 03/04/23 08:03 Intake & Output 03/03/23 03/04/23 03/04/23 18:59 06:59 18:59 Intake Total 604.663 1298 17.75 Output Total 1750 850 175 Balance -884.628 430 -157.25 Weight 103.6 kg Intake: IV 100 100 Piperacillin-Tazobactam 3 100 100 .375 gm In Sodium Chloride 0.9% 100 ml @ 25 mls/hr IVPB Q8HR [facility] Rx# :[id number] Intake, IV Titration 215.372 240 17.75 Amount Diltiazem 125 mg In 17.75 Sodium Chloride 0.9% 100 ml @ 5 MG/HR 5 mls/hr IV .Q24H [facility] Rx#:[id number] Heparin Sod,Pork in 0.45% 135.372 NaCl 25,000 unit In 0.45 % NaCl 1 250ml.bag @ 9. 355 UNITS/KG/HR 10 mls/hr IV .Q24H [facility] Rx#: [id number] Sodium Chloride 0.9% 1, 80 240 000 ml @ 20 mls/hr IV . Q24H [facility] Rx#:[id number] Tube Feeding 450 820 Other 100 120 Output: Urine 1750 850 175 Other: Voiding Method External Catheter External Catheter External Catheter # Bowel Movements 1 - Constitutional General appearance: Absent: cooperative, no acute distress - EENT Eyes: Absent: abnormal pupil - Neck Neck: Absent: lymphadenopathy - Respiratory Respiratory: bilateral: CTA - Cardiovascular Rhythm: regular Heart sounds: normal: S1, S2 Abnormal Heart Sounds: Absent: S3 Gallop - Gastrointestinal General gastrointestinal: Present: soft. Absent: tenderness - Psychiatric Psychiatric: Absent: A&O x's 3 - Labs CBC & Chem 7: 03/03/23 09:18 03/04/23 04:16 Labs: Abnormal Lab Results - Last 24 Hours (Table) 03/03/23 03/04/23 03/04/23 Range/Units 18:40 00:00 04:16 ABG pH (7.35-7.45) ABG pO2 (83-108) mmHg ABG HCO3 (21-25) mmol/L ABG Total CO2 (19-24) mmol/L ABG O2 Saturation (94-97) % Glucose 129 H (74-99) mg/dL POC Glucose (mg/dL) 144 H 117 H (70-110) mg/dL Calcium 7.9 L (8.4-10.2) mg/dL AST 84 H (17-59) U/L ALT 92 H (4-49) U/L Total Protein 5.8 L (6.3-8.2) g/dL Albumin 2.7 L (3.5-5.0) g/dL 03/04/23 03/04/23 Range/Units 06:07 07:58 ABG pH 7.48 H (7.35-7.45) ABG pO2 225 H (83-108) mmHg ABG HCO3 29 H (21-25) mmol/L ABG Total CO2 31 H (19-24) mmol/L ABG O2 Saturation 99.2 H (94-97) % Glucose (74-99) mg/dL POC Glucose (mg/dL) 111 H (70-110) mg/dL Calcium (8.4-10.2) mg/dL AST (17-59) U/L ALT (4-49) U/L Total Protein (6.3-8.2) g/dL Albumin (3.5-5.0) g/dL Assessment and Plan (1) Altered mental status Current Visit: Yes Status: Acute Code(s): R41.82 - ALTERED MENTAL STATUS, UNSPECIFIED SNOMED Code(s): 347486830 (2) Pneumonia Current Visit: Yes Status: Acute Code(s): J18.9 - PNEUMONIA, UNSPECIFIED ORGANISM SNOMED Code(s): 089756302 (3) Septic shock Current Visit: Yes Status: Acute Code(s): A41.9 - SEPSIS, UNSPECIFIED ORGANISM; R65.21 - SEVERE SEPSIS WITH SEPTIC SHOCK SNOMED Code(s): 46775113 (4) West Nile fever Current Visit: Yes Status: Acute Code(s): A92.30 - WEST NILE VIRUS INFECTION, UNSPECIFIED SNOMED Code(s): 871320171 Plan: Still obtunded. Continue supportive care. Infectious disease to appropriately treat for West Nile virus. Is otherwise per
[2023-03-04 17:33] LABS: Glucose,Whole Blood 130 mg/dL (70-110)
[2023-03-04 23:37] LABS: Glucose,Whole Blood 114 mg/dL (70-110)
[2023-03-05] MEDS ORDERED: POTASSIUM BICARBONATE/CIT AC 20 MEQ TABLET.EFF NG-TUBE SCH (03:00)
[2023-03-05] MEDS: DILTIAZEM 125 MG in SODIUM CHLORIDE 0.9% 100 ML IV SCH (04:54)
[2023-03-05 05:41] LABS: Basophils % (A) 0 %; Eosinophils # (A) 0.1 k/uL (0-0.7); Eosinophils % (A) 1 %; HCT 37.8 % (39.0-53.0); HGB 12.9 gm/dL (13.0-17.5); Lymphocytes # (A) 1.3 k/uL (1.0-4.8); Lymphocytes % (A) 13 %; MCH 33.2 pg (25.0-35.0); MCHC 34.1 g/dL (31.0-37.0); MCV 97.3 fL (80.0-100.0); Mean Platelet Volume 8.7; Monocytes # (A) 0.7 k/uL (0-1.0); Monocytes % (A) 7 %; Neutrophils # (A) 7.7 k/uL (1.3-7.7); Neutrophils % (A) 77 %; Platelet Count 173 k/uL (150-450); RBC 3.89 m/uL (4.30-5.90); RDW 13.2 % (11.5-15.5)
[2023-03-05 05:51] LABS: African American GFR (CKD) >90 (>60 ml/min/1.73 sqM); Anion Gap 4 mmol/L; Blood Urea Nitrogen 21 mg/dL (9-20); C Reactive Protein 5.5 mg/dL (<1.0); Calcium 7.9 mg/dL (8.4-10.2); Carbon Dioxide 30 mmol/L (22-30); Chloride 105 mmol/L (98-107); Glucose 100 mg/dL (74-99); Non-African American GFR(CKD) 84 (>60 ml/min/1.73 sqM); Potassium 3.7 mmol/L (3.5-5.1); Sodium 139 mmol/L (137-145)
[2023-03-05] MEDS: PIPERACILLIN-TAZOBACTAM 3.375 GM in SODIUM CHLORIDE 0.9% 100 ML IVPB SCH ×3 (08:00→23:51)
[2023-03-05 08:17] LABS: Erythrocyte Sedimentation Rate 28 mm/hr (0-15)
--- NOTE | 2023-03-05 08:38 | P.PN ---
Subjective Progress Note Date: 03/05/23 Principal diagnosis: Altered mental status This is a 77-year-old male who presented to the ER with concerns of altered mental status. His had found him on the ground prior to coming to the ER. He was placed in ICU, has had tachycardia with hypotension. He also continues t o have intermittent fevers. Workup for bacterial meningitis was negative. EEG was negative for seizure activity. Further workup still in progress. Patient still has a white count today. He is seen laying in bed in the ICU this morning, in no acute distress. 03/02/2023 Patient is seen and evaluated sitting up in bed in ICU. Over the weekend patient developed atrial fibrillation with RVR. He remains on a heparin drip. Patient also began to be more alert over the weekend, responds to verbal commands, does have garbled speech. Neurology has ordered an MRI of the brain. 03/05/2023 Patient is seen and evaluated laying in bed in ICU. He continues to be not very arousable, not alert today. Speech remains garbled. Labs have come back showing West Nile virus, infectious disease already consulted, await their recommendations. Objective - Vital Signs Vital signs: Vital Signs Temp 97.3 F L 03/05/23 04:00 Pulse 98 03/05/23 07:00 Resp 15 03/05/23 07:00 BP 130/75 03/05/23 07:00 Pulse Ox 92 L 03/05/23 08:14 FiO2 50 03/05/23 08:14 Intake & Output 03/04/23 03/05/23 03/05/23 18:59 06:59 18:59 Intake Total 798.75 1398 103 Output Total 1225 1700 0 Balance -426.25 -302 103 Weight 107 kg Intake: IV 120 130 Invasive Line 8 20 30 Piperacillin-Tazobactam 3 100 100 .375 gm In Sodium Chloride 0.9% 100 ml @ 25 mls/hr IVPB Q8HR [facility] Rx# :[id number] Intake, IV Titration 17.75 220 20 Amount Diltiazem 125 mg In 17.75 Sodium Chloride 0.9% 100 ml @ 5 MG/HR 5 mls/hr IV .Q24H [facility] Rx#:[id number] Sodium Chloride 0.9% 1, 220 20 000 ml @ 20 mls/hr IV . Q24H [facility] Rx#:[id number] Tube Feeding 541 913 83 Other 120 135 Output: Urine 1225 1700 0 Other: Voiding Method External Catheter External Catheter # Bowel Movements 1 1 - Constitutional General appearance: Present: no acute distress - Neck Neck: Absent: lymphadenopathy, rigidity - Respiratory Respiratory: bilateral: CTA - Cardiovascular Rhythm: regular Heart sounds: normal: S1, S2 - Gastrointestinal General gastrointestinal: Present: soft. Absent: tenderness - Integumentary Integumentary: Present: normal, normal turgor - Musculoskeletal Musculoskeletal: Present: generalized weakness - Labs CBC & Chem 7: 03/05/23 05:16 03/05/23 05:16 Labs: Abnormal Lab Results - Last 24 Hours (Table) 03/04/23 03/04/23 03/05/23 Range/Units 17:31 23:36 05:16 RBC 3.89 L (4.30-5.90) m/uL Hgb 12.9 L (13.0-17.5) gm/dL Hct 37.8 L (39.0-53.0) % ESR 28 H (0-15) mm/hr BUN (9-20) mg/dL Glucose (74-99) mg/dL POC Glucose (mg/dL) 130 H 114 H (70-110) mg/dL Calcium (8.4-10.2) mg/dL C-Reactive Protein (<1.0) mg/dL 03/05/23 Range/Units 05:16 RBC (4.30-5.90) m/uL Hgb (13.0-17.5) gm/dL Hct (39.0-53.0) % ESR (0-15) mm/hr BUN 21 H (9-20) mg/dL Glucose 100 H (74-99) mg/dL POC Glucose (mg/dL) (70-110) mg/dL Calcium 7.9 L (8.4-10.2) mg/dL C-Reactive Protein 5.5 H (<1.0) mg/dL Assessment and Plan (1) Altered mental status Current Visit: Yes Status: Acute Code(s): R41.82 - ALTERED MENTAL STATUS, UNSPECIFIED SNOMED Code(s): 861809575 (2) Pneumonia Current Visit: Yes Status: Acute Code(s): J18.9 - PNEUMONIA, UNSPECIFIED ORGANISM SNOMED Code(s): 028420088 (3) Septic shock Current Visit: Yes Status: Acute Code(s): A41.9 - SEPSIS, UNSPECIFIED ORGA NISM; R65.21 - SEVERE SEPSIS WITH SEPTIC SHOCK SNOMED Code(s): 08756354 (4) Atrial fibrillation Current Visit: Yes Status: Acute Code(s): I48.91 - UNSPECIFIED ATRIAL FIBRILLATION SNOMED Code(s): 70052307 (5) West Nile Virus infection Current Visit: Yes Status: Acute Code(s): A92.30 - WEST NILE VIRUS INFECTION, UNSPECIFIED SNOMED Code(s): 447996316 Plan: Appreciate multiple consultants. Await recommendations for treatment from infectious disease. CBC and CMP in the morning. Patient seen and evaluated by nurse practitioner, physician in agreement with plan
[2023-03-05] MEDS: levETIRAcetam IV 500 MG/5 ML VIAL IVP SCH ×2 (09:00→20:51)
[2023-03-05] MEDS: LOSARTAN 25 MG TAB PO SCH (09:25)
[2023-03-05] MEDS: METOPROLOL TARTRATE 50 MG TAB PO SCH ×2 (09:25→20:51)
[2023-03-05] MEDS: PANTOPRAZOLE 40 MG/10 ML VIAL IVP SCH (09:25)
[2023-03-05] MEDS: APIXABAN 5 MG TAB PO SCH ×2 (09:25→20:51)
[2023-03-05] MEDS: SODIUM CHLORIDE 0.9% 1,000 ML IV SCH (09:27)
--- NOTE | 2023-03-05 09:55 | P.PN ---
Subjective Progress Note Date: 03/05/23 The patient is a 77-year-old male who was admitted to the hospital with a mechanical fall. The patient's had found him down on the ground and it is unknown if he had a syncopal episode. Cardiology was consulted for atrial fibrillation. He was given amiodarone bolus, which was subsequently discontin ued and started on a Cardizem drip where he has remained rate controlled. Hospital course is also a current candidate by septicemia and encephalopathy. Results on CSF fluid shows IgM for West Nile virus elevated at 8.4. The patient appears more disoriented and ill at the time of my exam today. La bored breathing at rest. Appears agitated. GENERAL: Well-appearing, well-nourished. Mild distress NECK: Supple without JVD or thyromegaly. LUNGS: Breath sounds diminished to auscultation bilaterally. Respiration equal. Lung sounds coarse. HEART: Irregular rate and rhythm without murmurs, rubs or gallops. S1 and S2 heard. EXTREMITIES: Normal range of motion, no edema. No clubbing or cyanosis. Peripheral pulses intact and strong. TELEMETRY: A. fib with heart rates in the low 100s to one-teens IMPRESSION: Status post mechanical fall Persistent atrial fibrillation Hypertension Encephalopathy, secondary to West Nile Virus Septicemia Elevated liver enzymes PLAN: Continue supportive treatment Aggressive pulmonary hygiene Further recommendations based on clinical course I am dictating on behalf of Dr Larry Neil's history/physical and assessment/plan. Objective - Vital Signs Vital signs: Vital Signs Temp 97.3 F L 03/05/23 04:00 Pulse 98 03/05/23 07:00 Resp 15 03/05/23 07:00 BP 130/75 03/05/23 07:00 Pulse Ox 92 L 03/05/23 08:14 FiO2 50 03/05/23 08:14 Intake & Output 03/04/23 03/05/23 03/05/23 18:59 06:59 18:59 Intake Total 798.75 1398 103 Output Total 1225 1700 750 Balance -426.25 -302 -647 Weight 107 kg Intake: IV 120 130 Invasive Line 8 20 30 Piperacillin-Tazobactam 3 100 100 .375 gm In Sodium Chloride 0.9% 100 ml @ 25 mls/hr IVPB Q8HR [facility] Rx# :[id number] Intake, IV Titration 17.75 220 20 Amount Diltiazem 125 mg In 17.75 Sodium Chloride 0.9% 100 ml @ 5 MG/HR 5 mls/hr IV .Q24H [facility] Rx#:[id number] Sodium Chloride 0.9% 1, 220 20 000 ml @ 20 mls/hr IV . Q24H [facility] Rx#:[id number] Tube Feeding 541 913 83 Other 120 135 Output: Urine 1225 1700 750 Other: Voiding Method External Catheter External Catheter # Bowel Movements 1 1 1 - Labs CBC & Chem 7: 03/05/23 05:16 03/05/23 08:20 Labs: Abnormal Lab Results - Last 24 Hours (Table) 03/04/23 03/04/23 03/05/23 Range/Units 17:31 23:36 05:16 RBC 3.89 L (4.30-5.90) m/uL Hgb 12.9 L (13.0-17.5) gm/dL Hct 37.8 L (39.0-53.0) % ESR 28 H (0-15) mm/hr BUN (9-20) mg/dL Glucose (74-99) mg/dL POC Glucose (mg/dL) 130 H 114 H (70-110) mg/dL Calcium (8.4-10.2) mg/dL C-Reactive Protein (<1.0) mg/dL 03/05/23 Range/Units 05:16 RBC (4.30-5.90) m/uL Hgb (13.0-17.5) gm/dL Hct (39.0-53.0) % ESR (0-15) mm/hr BUN 21 H (9-20) mg/dL Glucose 100 H (74-99) mg/dL POC Glucose (mg/dL) (70-110) mg/dL Calcium 7.9 L (8.4-10.2) mg/dL C-Reactive Protein 5.5 H (<1.0) mg/dL
--- NOTE | 2023-03-05 11:47 | P.PN ---
Subjective Progress Note Date: 03/05/23 I am seeing this patient in new consultation today 02/24/2023 after the patient presented to the ER yesterday evening with concerns of altered mental status. Patient is a 77-year-old white male with a limited past medical history. Apparently, the patient's found him down on the ground early yesterday morning confused. His last known well time was the night prior. Nonenhanced brain CT on arrival shows age-related atrophic and chronic small vessel ischemia without any obvious acute cranial process. Initial chest x-ray on arrival showed fullness around the right hilum likely related patient rotation. Underlying infiltrate or mass not excluded. CBC shows leukocytosis with a WBC count of 16, hemoglobin 13.5, hematocrit 39.1, platelets 109,000. BMP shows sodium 136, potassium 3.7, chloride 110, serum bicarb 17, BUN 36, creatinine 1.22, glucose 102. LFTs are mildly elevated. Troponins are 1.66 and 1.9. Urinalysis not particularly concerning for UTI. Negative for influenza, RSV, COVID-19. Patient was originally admitted to the floor, and was transferred to the ICU last night for tachycardia and hypotension. Yesterday, he was given a total of 2.5 L normal saline bolus. On my evaluation, the patient is lying in bed, extremities are rigid, he is febrile with a t-max of 103 F. He is on 2 L/m nasal cannula, oxygenating around 94%. He is disoriented and unable to provide any meaningful information. He mostly mumbles. I did speak to the patient's daughter, who denies any recent sinus, ear, or pulmonary infections. I am concerned for possible encephalitis or meningitis. I spoke with neurology last night, and updated them on the patient. There is an EEG pending for the morning. Patient is empirically covered with combination of ampicillin, vancomycin, and Rocephin. Infectious disease consult was also placed. Heart rhythm is currently normal sinus on bedside monitor. Blood pressure is normotensive. Normal saline is infusing at 130 ML's per hour. No need for vasopressors at this time. Patient will need a thorough neurological workup. He is being monitored in the intensive care unit in the meantime. Patient was seen and examined today on 02/25/2023, remains in the ICU, spiking temperatures intermittently, he had a T-max of 102.9. Spinal fluid workup so far is negative for bacterial meningitis. However viral meningitis/encephalitis is not entirely ruled out, and workup is still in progress. In the meantime the patient is being followed by many consultants including infectious disease and urology. Apparently his EEG was negative for seizure activity. Labs today showed leukocytosis with WBC of 15.1 hemoglobin is normal electrolytes are normal bicarb is 20 creatinine is 1.7, improved compared to his baseline on admission liver enzymes remain at the time elevated ammonia level is normal. Drug screen was negative. CPK was elevated on admission, no CPK noted today. His pro-calcitonin level 0.31. Ultrasound of the abdomen and pelvis showed slud ge in the gallbladder, it also showed hepatomegaly, otherwise limited exam Reevaluated today on 02/26/70, remains in the ICU on 3 L nasal cannula. Patient continues to have poor mental status, seems to be obtunded, at times he may follow simple instructions like wiggling toes but most of the time he doesn't. Patient is snoring and is having episodes of apnea hence ABG was done and showed a pO2 of 82 pCO2 37 pH of 7.35. Continues to have relatively high CPK but improving [id number], renal functioning continues to be about the same. Patient has a low bicarb of 16, and I'm recommending 1 amp of bicarb to be given. So far all the diagnostic workup is nondiagnostic the West Nile virus workup is still pending. Patient did have elevated WBC count elevated pro calcitonin. Mental status is not showing any improvement whatsoever. Neurology is following. Chest x-ray continues to show left basilar atelectasis, strongly doubt pneumonia. Patient remains empirically on antibiotics. He is on Zosyn. Remains on IV fluid at 150 ML per hour in the form of 1.9 normal saline. Patient was reevaluated today on 02/27/2023, patient remains in the ICU, he is on 2 L nasal cannula, his IV fluids remains at 1 50 mL per hour in the form of 0.9 normal saline, patient is scheduled to have an MRI today. Patient seems to be more responsive today, at least he is following instructions, his speech however remains quite garbled. He knows that he is in the hospital, he knew that it is 2022, but again his speech is very quite garbled and hard to understand. Considering his presentation I believe this is a significant improvement compared to his mental status upon presentation. CBC showed Fernie Smith is better at 13.8 hemoglobin is 14.4. Basic metabolic profile is normal, renal profile is normal CPK remains a bit elevated but trending down it is over 8000 Patient was seen again on 02/28/2023 patient remains in the ICU, last night he developed an episode of atrial fibrillation with RVR, he is now on Cardizem at 2.5 mg per hour, is also on heparin drip. Remains on IV fluid at 13 0 mL per hour. CPK is down to 5256, mental status is still basically about the same as yesterday, patient seems to comprehend, he knows where he is, he knows the year, but his speech is very garbled. And seems to be very slow. Unable to swallow, hence I'm recommending a nasogastric tube to be placed and start enteral feeding on this patient sometime today. Patient was supposed to have an MRI yesterday, but because of atrial fibrillation and RVR, MRI was canceled overall the patient remains encephalopathic, but slowly improving compared to his baseline upon his initial presentation. Neurology on the case still concerned about the possibility of encephalitis/meningitis and concerned about West Nile virus, workup is still pending in the meantime the patient remains on Zosyn empirically. He is also on Keppra although his EEG showed no evidence of epileptiform focus. Patient was reevaluated today on 03/01/2023, remains on 4 L nasal cannula neurologically the patient is about the same, patient is awake, follows instructions, knows where he is, however his speech remains quite garbled. Remains on Zosyn empirically for presumptive aspiration, chest x-ray today showed worsening bilateral opacities, not clear whether this is a worsening edema or multifocal infiltrates nonetheless I will cut down his IV fluids and I will give the patient a trial of Lasix 40 mg IV push. Patient remains on aspiration precautions, could not have a nasogastric tube placed yesterday. Will cautiously feed as the patient may have some microaspiration labs today showed relatively normal CBC and normal electrolytes and normal renal profile. CPK is down to 2008 The patient is seen today 03/02/2023 in follow-up in the intensive care unit. He is currently resting comfortably in bed. Awake. Following instructions. Answering questions. Speech is still quite garbled. He is still quite weak. Chest x-ray shows improved aeration of the lungs with persistent airspace opacities scattered throughout the lungs. No pneumothorax. No large pleural effusion. Blood cultures revealed no growth. Urine culture revealed no growth. Serum spinal fluid culture revealed no growth. West Nile test still pending. White count 9.7. Hemoglobin 14.2. Platelets 160. Sodium 141. Potassium 3.7. Bicarb 29. BUN 21. Creatinine 0.61. Glucose 109. AST 82. ALT 69. Creatinine kinase 719. He did have issues with atrial fibrillation and rapid ventricular response. He's currently on a Cardizem drip at 10 mg per hour. Heparin drip. He is being nourished with vital AF at 15 ML's per hour via nasogastric tube. Pro-calcitonin 0.31. He remains on Zosyn. Maintain O2 saturations in the 90s on 2 L/m per nasal cannula. He remains afebrile. Hemodynamically stable. The patient is seen today 03/03/2023 in follow-up in the intensive care unit. He is currently on BiPAP 05/13 at 40% FiO2. MRI of the brain showed no evidence for encephalitis. No evidence of intracranial mass, acute/subacute infarct or abnormal enhancement. Chest x-ray reveals scattered parenchymal changes. Left basilar opacity. Essentially stable chest. Blood cultures revealed no growth. Urine culture revealed no growth. Cerebral spinal fluid cultures revealed no growth. White count 9.8. Hemoglobin 14.1. Platelets 180. Sodium 138. Potassium 3.7. Bicarb 30. BUN 19. Creatinine 0.59. Glucose 121. AST 82. ALT 70. He remains on a heparin drip. Remains in atrial fibrillation with better controlled ventricular response remains on Zosyn. He has been nourished with vital AF at 50 MLS per hour with a goal of 83. The patient is seen today 03/04/2023 in follow-up in the intensive care unit. Currently maintaining good O2 saturations in the 90s on 3 L/m per nasal cannula. Remains on Cardizem drip at 5 mg per hour. Normal saline at 20 ML's per hour. He is being nourished via nasogastric tube with vital AF at 75 ML's per hour with a goal of 83 ML's per hour. He did utilize BiPAP last night 19/01 and 50% FiO2. He had some episodes of atrial fibrillation with RVR again. He also had an episode of respiratory distress. Arterial blood gases revealed a pO2 of 225, pCO2 40 and a pH of 7.48. Chest x-ray did not reveal any acute changes. He remains slow to respond. His speech remains quite garbled. Currently in atrial fibrillation with a controlled ventricular rate. Sodium 140. Potassium 3.5. Bicarb 30. BUN 19. Creatinine 0.66. AST 84. ALT 92. The patient is seen today 03/05/2023 in follow-up in the intensive care unit. Neurologically remains about the same. Arousable, garbled speech. Afebrile. M aintaining good O2 saturations in the 90s on room air. Blood cultures, urine culture, cerebrospinal fluid cultures and repeat blood cultures have all been negative. 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 White count 10.0. Hemoglobin 12.9. Platelets 173. Sodium 139. Potassium 4.1. Bicarb 30. BUN 21. Creatinine 0.83. Glucose 100. Pro-calcitonin 0.07. He is currently on Zosyn per ID service. Normal saline at [facility]. He is being nourished via nasogastric tube with vital AF at 83 ML's per hour which is goal. He remains in atrial fibrillation. He is on beta blockers and anticoagulated with Eliquis. Objective - Vital Signs Vital signs: Vital Signs Temp 97.3 F L 03/05/23 04:00 Pulse 92 03/05/23 10:00 Resp 22 03/05/23 10:00 BP 113/90 03/05/23 10:00 Pulse Ox 92 L 03/05/23 10:00 FiO2 50 03/05/23 08:14 Intake & Output 03/04/23 03/05/23 03/05/23 18:59 06:59 18:59 Intake Total 798.75 1398 123 Output Total 1225 1700 950 Balance -426.25 -302 -827 Weight 107 kg Intake: IV 120 130 20 Invasive Line 8 20 30 10 Invasive Line 9 10 Piperacillin-Tazobactam 3 100 100 .375 gm In Sodium Chloride 0.9% 100 ml @ 25 mls/hr IVPB Q8HR [facility] Rx# :[id number] Intake, IV Titration 17.75 220 20 Amount Diltiazem 125 mg In 17.75 Sodium Chloride 0.9% 100 ml @ 5 MG/HR 5 mls/hr IV .Q24H [facility] Rx#:[id number] Sodium Chloride 0.9% 1, 220 20 000 ml @ 20 mls/hr IV . Q24H [facility] Rx#:[id number] Tube Feeding 541 913 83 Other 120 135 Output: Urine 1225 1700 950 Other: Voiding Method External Catheter External Catheter External Catheter # Bowel Movements 1 1 1 - Exam GENERAL EXAM: Alert, 77-year-old male, slow to respond, garbled speech, on room air, comfortable in no apparent distress. HEAD: Normocephalic. EYES: Normal reaction of pupils, equal size. NOSE: Clear with pink turbinates. THROAT: No erythema or exudates. NECK: No masses, no JVD. CHEST: No chest wall deformity. LUNGS: Equal air entry with few scattered rhonchi. CVS: S1 and S2 normal with no audible murmur, irregular rhythm. ABDOMEN: No hepatosplenomegaly, normal bowel sounds, no guarding or rigidity. SPINE: No scoliosis or deformity SKIN: No rashes CENTRAL NERVOUS SYSTEM: Slow to respond, garbled speech. Tone is normal in all 4 extremities. EXTREMITIES: There is no peripheral edema. No clubbing, no cyanosis. Peripheral pulses are intact. - Labs CBC & Chem 7: 03/05/23 05:16 03/05/23 08:20 Labs: Abnormal Lab Results - Last 24 Hours (Table) 03/04/23 03/04/23 03/05/23 Range/Units 17:31 23:36 05:16 RBC 3.89 L (4.30-5.90) m/uL Hgb 12.9 L (13.0-17.5) gm/dL Hct 37.8 L (39.0-53.0) % ESR 28 H (0-15) mm/hr BUN (9-20) mg/dL Glucose (74-99) mg/dL POC Glucose (mg/dL) 130 H 114 H (70-110) mg/dL Calcium (8.4-10.2) mg/dL C-Reactive Protein (<1.0) mg/dL 03/05/23 Range/Units 05:16 RBC (4.30-5.90) m/uL Hgb (13.0-17.5) gm/dL Hct (39.0-53.0) % ESR (0-15) mm/hr BUN 21 H (9-20) mg/dL Glucose 100 H (74-99) mg/dL POC Glucose (mg/dL) (70-110) mg/dL Calcium 7.9 L (8.4-10.2) mg/dL C-Reactive Protein 5.5 H (<1.0) mg/dL Assessment and Plan Assessment: Encephalitis, secondary to the West Nile virus. Computed tomography scan of the chest abdomen and pelvis revealed thickening and enlargement of the right psoas musculature and iliacus musculature with heterogenous seen. Findings are likely reflective of retroperitoneal hemorrhage however there is a small focus of decreased attenuation measuring 1.3 cm with possible small focus of air. Small abscess is not excluded. Basilar pleural effusions and compressive atelectasis for scattered groundglass infiltrates. Acute febrile illness and sepsis, no obvious infectious process identified yet, all cultures have been negative so far. Leukocytosis, resolved, possible aspiration pneumonia. Currently on Zosyn, procalcitonin 0.31. Follow-up pro-calcitonin 0.07. Acute rhabdomyolysis, significantly elevated CPK, improving with hydration, CPK is down to 719 Elevated LFTs, ultrasound showed hepatomegaly Elevated troponins, possibly related to supply/demand mismatch Atrial fibrillation with rapid ventricular response requiring Cardizem, heparin drip. Transitioned to oral beta blockers and Eliquis Plan: The patient was seen and evaluated Labs and medications reviewed Improved and on room air Being nourished via NG tube with vital AF Remains on Zosyn, follow-up pro-calcitonin 0.07 Daughter is at the bedside and all of her questions were answered We will continue to follow I have personally seen and examined the patient, performed the documentation and the assessment and plan as written. Number of minutes spent on the visit: 10.
[2023-03-05 11:51] LABS: Glucose,Whole Blood 128 mg/dL (70-110)
--- NOTE | 2023-03-05 14:22 | P.PN ---
Subjective Progress Note Date: 03/05/23 Principal diagnosis: Fever Patient is a 77-year-old male presenting to the hospital y after the patient was found to be unresponsive by the , patient has been febrile initial testing negative including LP which was only mildly elevated protein. On today's evaluation that is 03/05/2023, the patient continues to be afebrile, the patient is breathing comfortably on room air, he did have a congested cough but no sputum production reported by the nursing staff patient did respond to his name and also some simple question no diarrhea has been reported patient did have white count of 10.0, creatinine 0.83, the patient west nile IgM came back positive on CSF Objective - Vital Signs Vital signs: Vital Signs Temp 97.3 F L 03/05/23 04:00 Pulse 75 03/05/23 13:00 Resp 24 03/05/23 13:00 BP 103/76 03/05/23 13:00 Pulse Ox 96 03/05/23 13:00 FiO2 50 03/05/23 08:14 Intake & Output 03/04/23 03/05/23 03/05/23 18:59 06:59 18:59 Intake Total 798.75 1398 605 Output Total 1225 1700 1500 Balance -426.25 -302 -895 Weight 107 kg 107 kg Intake: IV 120 130 140 Invasive Line 8 20 30 20 Invasive Line 9 20 Piperacillin-Tazobactam 3 100 100 100 .375 gm In Sodium Chloride 0.9% 100 ml @ 25 mls/hr IVPB Q8HR [facility] Rx# :[id number] Intake, IV Titration 17.75 220 20 Amount Diltiazem 125 mg In 17.75 Sodium Chloride 0.9% 100 ml @ 5 MG/HR 5 mls/hr IV .Q24H [facility] Rx#:[id number] Sodium Chloride 0.9% 1, 220 20 000 ml @ 20 mls/hr IV . Q24H [facility] Rx#:[id number] Tube Feeding 541 913 415 Other 120 135 30 Output: Urine 1225 1700 1500 Other: Voiding Method External Catheter External Catheter External Catheter # Bowel Movements 1 1 1 - Exam GENERAL DESCRIPTION: An elderly male lying in bed in no distress RESPIRATORY SYSTEM: Unlabored breathing , coarse breath sounds bilaterally HEART: S1 S2 regular rate and rhythm , ABDOMEN: Soft , no tenderness EXTREMITIES: No edema feet - Labs CBC & Chem 7: 03/05/23 05:16 03/05/23 08:20 Labs: Abnormal Lab Results - Last 24 Hours (Table) 03/04/23 03/04/23 03/05/23 Range/Units 17:31 23:36 05:16 RBC 3.89 L (4.30-5.90) m/uL Hgb 12.9 L (13.0-17.5) gm/dL Hct 37.8 L (39.0-53.0) % ESR 28 H (0-15) mm/hr BUN (9-20) mg/dL Glucose (74-99) mg/dL POC Glucose (mg/dL) 130 H 114 H (70-110) mg/dL Calcium (8.4-10.2) mg/dL C-Reactive Protein (<1.0) mg/dL 03/05/23 03/05/23 Range/Units 05:16 11:50 RBC (4.30-5.90) m/uL Hgb (13.0-17.5) gm/dL Hct (39.0-53.0) % ESR (0-15) mm/hr BUN 21 H (9-20) mg/dL Glucose 100 H (74-99) mg/dL POC Glucose (mg/dL) 128 H (70-110) mg/dL Calcium 7.9 L (8.4-10.2) mg/dL C-Reactive Protein 5.5 H (<1.0) mg/dL Assessment and Plan (1) Fever Current Visit: Yes Status: Acute Code(s): R50.9 - FEVER, UNSPECIFIED SNOMED Code(s): 758780980 (2) Pneumonia Current Visit: Yes Status: Acute Code(s): J18.9 - PNEUMONIA, UNSPECIFIED ORGANISM SNOMED Code(s): 009956199 (3) West Nile Virus infection Current Visit: Yes Status: Acute Code(s): A92.30 - WEST NILE VIRUS INFECTION, UNSPECIFIED SNOMED Code(s): 096647427 Plan: 1patient with SIRS in this patient with a fever elevated white count tachycardia with significant mental status changes high clinical suspicious for possible encephalitis/meningitis however the patient LP is relatively clear only mildly elevated protein of 86 patient chest x-ray negative for pneumonia urine has been negative mildly elevated liver enzymes and the patient did have evidence of rhabdomyolysis as the patient has been on the floor for more than 12 hours however no evidence of any bruising or injury has been noticed abdominal soft on clinical examination 2- ultrasound of the abdomen sludge versus artifact in the gallbladder no other abnormality noticed 3- hepatitis panel is negative, blood and CSF cultures so far negative , West Nile 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 back positive suggestive of West Nile virus and cellulitis/infection, the treatment is mostly supportive this has been discussed in detail with the daughter at the bedside who asked for antiviral treatment, currently no studies support the use of ribavirin or acyclovir, steroids is also questionable, there is some role for immunoglobulin infusion which may be tried discussed with the pharmacy 4 patient also have a congested cough and question of possible aspiration pneumonitis, patient to continue with Zosyn and monitor clinical course closely Daughter at the bedside and multiple questions concerned were answered Dictation was produced using [employer] dictation software. please excuse any grammatical, word or spelling errors. Time with Patient: Greater than 30
[2023-03-05] MEDS ORDERED: IMMUNE GLOBULIN (GAMMAGARD) 30 GM in EMPTY BAG 1 BAG IV NR ×4 (16:00→17:00)
--- NOTE | 2023-03-05 16:55 | P.PN ---
Subjective Progress Note Date: 03/05/23 I am following-up with patient and he is accompanied with his daughter who feels he is more responsive today. It seems his West Nile IgM study came back positive. Objective - Vital Signs Vital signs: Vital Signs Temp 97.3 F L 03/05/23 04:00 Pulse 81 03/05/23 14:00 Resp 18 03/05/23 14:00 BP 123/70 03/05/23 14:00 Pulse Ox 94 L 03/05/23 14:00 FiO2 50 03/05/23 08:14 Intake & Output 03/04/23 03/05/23 03/05/23 18:59 06:59 18:59 Intake Total 798.75 1398 605 Output Total 1225 1700 1750 Balance -426.25 -302 -1145 Weight 107 kg 107 kg Intake: IV 120 130 140 Invasive Line 8 20 30 20 Invasive Line 9 20 Piperacillin-Tazobactam 3 100 100 100 .375 gm In Sodium Chloride 0.9% 100 ml @ 25 mls/hr IVPB Q8HR [facility] Rx# :[id number] Intake, IV Titration 17.75 220 20 Amount Diltiazem 125 mg In 17.75 Sodium Chloride 0.9% 100 ml @ 5 MG/HR 5 mls/hr IV .Q24H [facility] Rx#:[id number] Sodium Chloride 0.9% 1, 220 20 000 ml @ 20 mls/hr IV . Q24H [facility] Rx#:[id number] Tube Feeding 541 913 415 Other 120 135 30 Output: Urine 1225 1700 1750 Other: Voiding Method External Catheter External Catheter External Catheter # Bowel Movements 1 1 1 - Exam General: The patient is lying in bed and does not appear in acute distress. Neuro: Limited because of his condition. Patient is mild drowsy but is awakeable to verbal stimuli. He is oriented to self and correctly stated the year. He correctly name his daughter name who is at bedside. He followed very few minimal simple commands such as showing a thumbs up and wiggling the toes. Right pupil is about 4 mm and the left is about 2mm and reactive to light. No facial weakness. Motor: Strength is hard to assess because of his significant pain. Upon lifting his arms above he was in pain. He'll squeeze my hands equally bilaterally. He'll wiggle both toes but he would not raise bilateral legs above gravity. - Labs CBC & Chem 7: 03/05/23 05:16 03/05/23 08:20 Labs: Abnormal Lab Results - Last 24 Hours (Table) 03/04/23 03/04/23 03/05/23 Range/Units 17:31 23:36 05:16 RBC 3.89 L (4.30-5.90) m/uL Hgb 12.9 L (13.0-17.5) gm/dL Hct 37.8 L (39.0-53.0) % ESR 28 H (0-15) mm/hr BUN (9-20) mg/dL Glucose (74-99) mg/dL POC Glucose (mg/dL) 130 H 114 H (70-110) mg/dL Calcium (8.4-10.2) mg/dL C-Reactive Protein (<1.0) mg/dL 03/05/23 03/05/23 Range/Units 05:16 11:50 RBC (4.30-5.90) m/uL Hgb (13.0-17.5) gm/dL Hct (39.0-53.0) % ESR (0-15) mm/hr BUN 21 H (9-20) mg/dL Glucose 100 H (74-99) mg/dL POC Glucose (mg/dL) 128 H (70-110) mg/dL Calcium 7.9 L (8.4-10.2) mg/dL C-Reactive Protein 5.5 H (<1.0) mg/dL Assessment and Plan Assessment: * Acute onset with high grade fever and leukocytosis and severe encephalopathy: 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 Per Dr. Mills had nuchal and generalized rigidity and some tremulousness. CSF is negative for meningoencephalitis---His fever and leukocytosis has improved but he continues to be slow responding with generalized weakness * Acute metabolic encephalopathy likely from severe pneumonia * SIRS, pneumonia * Acute rhabdomyolysis, resolving * Elevated cardiac enzymes * New onset atrial fibrillation currently on heparin IV drip. * History of bilateral shoulder pain/arthritis * History of bilateral knee replacement. Plan: * CT head was performed 02/28/2023 revealed no acute intracranial process. Nonspecific white matter changes, likely secondary to chronic small vessel ischemic disease. I personally reviewed CT head, agree with the findings. * MRI Brain w/ and w/o: Was reported as no evidence for encephalitis. No evidence of intracranial mass, acute/subacute infarct or abnormal enhancement. Nonspecific white matter changes, likely related to small vessel ischemic disease. * Initial EEG revealed background slowing and disorganization of mild degree suggestive of encephalopathy. There is no epileptiform activity. * EEG performed on 03/01/23 was abnormal due to background slowing of moderate degree consistent with encephalopathy. No epileptiform activity was seen. When compared to the initial EEG from 02/24/2023, the background seems to have gotten worse. * Chest x-ray performed today revealed worsening bilateral multifocal opacities consistent with worsening edema and/or multifocal acute infiltrates. Pulmonary, ID and cardiology on on board. * CSF performed 02/24/2023 was colorless and clear. CSF glucose 52, protein 86 (12-60). WBC count 4, RBCs 358. Comprehensive viral detection negative. 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 For west nile it is usually supportive care. * Patient is currently on Zosyn for possible pneumonia. I.D. is on board. * He was started on Keppra 750 mg twice a day for now by Dr. Mills and he recommended to start tapering off Keppra, when mentation improves. If by tomorrow mentation continue to improve will slowly titrate it down. * Pending MRI Cervical spine w/ and w/o. * CT chest, abdomen and pelvis: It is reported as there is thickening enlargement of the right psoas musculature and iliacus musculature with heterogeneity seen. Finding are likely reflective of retroperitoneal hemorrhage however on image 100 there is small focus of decreased attenuation measuring 1.3 cm with possible small focus of air. Small abscess is not excluded. Basilar pleural effusion and compressive atelectasis with scattered groundglass infiltrates. We'll defer further management to the primary team and I.D. team. Consider stopping anticoagulation and possible general surgery team consultation. * Cardiology on board for new onset atrial fibrillation. Patient currently on heparin drip. * CK has drastically improved. * Discussed with ICU attending. The plan is discussed with patient's daughter who is at bedside and I.D. attending. Will continue to follow. Time with Patient: Less than 30
[2023-03-05] MEDS: LACTOBACILLUS ACIDOPHILUS/PECT 1 EACH CAPSULE PO SCH ×2 (16:59→21:00)
[2023-03-05] MEDS: ZINC SULFATE 220 MG CAP PO SCH (16:59)
[2023-03-05] MEDS: CHOLECALCIFEROL 125 MCG (5000 IU) TABLET PO SCH (16:59)
[2023-03-05] MEDS: ASCORBIC ACID 500 MG TAB PO SCH (16:59)
[2023-03-05] MEDS: ACETAMINOPHEN TAB 325 MG TAB PO PRN (16:59)
[2023-03-05] MEDS ORDERED: IMMUNE GLOBULIN (GAMMAGARD) 5 GM in EMPTY BAG 1 BAG IV NR (17:00)
[2023-03-05 17:44] LABS: Glucose,Whole Blood 111 mg/dL (70-110)
[2023-03-05 23:56] LABS: Glucose,Whole Blood 120 mg/dL (70-110)
--- NOTE | 2023-03-06 01:17 | XR ---
EXAM: XR Chest, 1 View CLINICAL HISTORY: ITS.REASON XR Reason: NG tube placement TECHNIQUE: Frontal view of the chest. COMPARISON: XR Chest dated 03/04/2023 FINDINGS: See Impression. IMPRESSION: 1. NG tube tip in the proximal to the mid stomach, similar/mildly advanced compared to the prior 2. Low lung volumes. New left basilar opacity. May represent atelectasis or airspace disease.
[2023-03-06 04:32] LABS: HGB 12.7 gm/dL (13.0-17.5); MCH 32.9 pg (25.0-35.0); MCHC 33.5 g/dL (31.0-37.0); MCV 98.4 fL (80.0-100.0); Mean Platelet Volume 9.1; Platelet Count 182 k/uL (150-450); RBC 3.86 m/uL (4.30-5.90); RDW 12.9 % (11.5-15.5); WBC 8.6 k/uL (3.8-10.6)
[2023-03-06 04:47] LABS: ALT 92 U/L (4-49); AST 59 U/L (17-59); African American GFR (CKD) >90 (>60 ml/min/1.73 sqM); Albumin 2.7 g/dL (3.5-5.0); Alkaline Phosphatase 45 U/L (38-126); Anion Gap 4 mmol/L; Blood Urea Nitrogen 22 mg/dL (9-20); Calcium 7.9 mg/dL (8.4-10.2); Carbon Dioxide 26 mmol/L (22-30); Chloride 110 mmol/L (98-107); Glucose 121 mg/dL (74-99); Non-African American GFR(CKD) >90 (>60 ml/min/1.73 sqM); Potassium 3.9 mmol/L (3.5-5.1); Sodium 140 mmol/L (137-145); Total Bilirubin 1.4 mg/dL (0.2-1.3); Total Protein 6.5 g/dL (6.3-8.2)
[2023-03-06] MEDS ORDERED: POTASSIUM BICARBONATE/CIT AC 20 MEQ TABLET.EFF NG-TUBE SCH (06:00)
[2023-03-06 06:18] LABS: Glucose,Whole Blood 111 mg/dL (70-110)
[2023-03-06] MEDS: PIPERACILLIN-TAZOBACTAM 3.375 GM in SODIUM CHLORIDE 0.9% 100 ML IVPB SCH ×3 (08:00→23:33)
[2023-03-06] MEDS: SODIUM CHLORIDE 0.9% 1,000 ML IV SCH (08:31)
[2023-03-06] MEDS: PANTOPRAZOLE 40 MG/10 ML VIAL IVP SCH (08:32)
[2023-03-06] MEDS: levETIRAcetam IV 500 MG/5 ML VIAL IVP SCH ×2 (08:32→20:46)
--- NOTE | 2023-03-06 08:38 | P.PN ---
Subjective Principal diagnosis: Altered mental status This is 77-year-old white male with no significant past medical history came in and septic shock and questionable pneumonia. He was significant tachycardia with hypotension and was placed in ICU for observation. He continues to have significant mental status changes. Question febrile seizure element. Temperature is improved IV Tylenol has been administered. Appreciate multiple consultants input. He is not able to answer questions today. I get the impression he does recognize me somewhat. He smiled after I told him the [employer] won the football game last night. Objective - Vital Signs Vital signs: Vital Signs Temp 98.2 F 03/06/23 04:00 Pulse 92 03/06/23 07:00 Resp 24 03/06/23 07:00 BP 119/81 03/06/23 06:45 Pulse Ox 94 L 03/06/23 07:00 FiO2 50 03/05/23 08:14 Intake & Output 03/05/23 03/06/23 03/06/23 18:59 06:59 18:59 Intake Total 1513.0 1152.5 103 Output Total 2750 1450 0 Balance -1237.0 -297.5 103 Weight 107 kg Intake: IV 260 290 20 Invasive Line 8 30 30 Invasive Line 9 30 Piperacillin-Tazobactam 3 200 100 .375 gm In Sodium Chloride 0.9% 100 ml @ 25 mls/hr IVPB Q8HR [facility] Rx# :[id number] Sodium Chloride 0.9% 1, 160 20 000 ml @ 20 mls/hr IV . Q24H [facility] Rx#:[id number] Intake, IV Titration 84.0 146.5 Amount Immune Globulin ( 64.0 106.5 Gammagard) 30 gm In Empty Bag 1 bag @ Per Protocol IV .Q0M [facility] Rx#:[id number] Sodium Chloride 0.9% 1, 20 40 000 ml @ 20 mls/hr IV . Q24H [facility] Rx#:[id number] Tube Feeding 1079 581 83 Other 90 135 Output: Urine 2750 1450 0 Other: Voiding Method External Catheter External Catheter # Bowel Movements 1 1 - Constitutional General appearance: Present: no acute distress - EENT Eyes: Absent: abnormal pupil - Neck Neck: Absent: lymphadenopathy - Respiratory Respiratory: bilateral: diminished - Cardiovascular Rhythm: regular Heart sounds: normal: S1, S2 Abnormal Heart Sounds: Absent: S3 Gallop - Gastrointestinal General gastrointestinal: Present: soft. Absent: tenderness - Psychiatric Psychiatric: Absent: A&O x's 3 - Labs CBC & Chem 7: 03/06/23 03:54 03/06/23 03:54 Labs: Abnormal Lab Results - Last 24 Hours (Table) 03/05/23 03/05/23 03/05/23 Range/Units 11:50 13:05 17:43 RBC (4.30-5.90) m/uL Hgb (13.0-17.5) gm/dL Hct (39.0-53.0) % Chloride (98-107) mmol/L BUN (9-20) mg/dL Glucose (74-99) mg/dL POC Glucose (mg/dL) 128 H 111 H (70-110) mg/dL Calcium (8.4-10.2) mg/dL Total Bilirubin (0.2-1.3) mg/dL ALT (4-49) U/L Albumin (3.5-5.0) g/dL IgE 338.00 H (0.00-114.00) IU/mL 03/05/23 03/06/23 03/06/23 Range/Units 23:55 03:54 03:54 RBC 3.86 L (4.30-5.90) m/uL Hgb 12.7 L (13.0-17.5) gm/dL Hct 38.0 L (39.0-53.0) % Chloride 110 H (98-107) mmol/L BUN 22 H (9-20) mg/dL Glucose 121 H (74-99) mg/dL POC Glucose (mg/dL) 120 H (70-110) mg/dL Calcium 7.9 L (8.4-10.2) mg/dL Total Bilirubin 1.4 H (0.2-1.3) mg/dL ALT 92 H (4-49) U/L Albumin 2.7 L (3.5-5.0) g/dL IgE (0.00-114.00) IU/mL 03/06/23 Range/Units 06:17 RBC (4.30-5.90) m/uL Hgb (13.0-17.5) gm/dL Hct (39.0-53.0) % Chloride (98-107) mmol/L BUN (9-20) mg/dL Glucose (74-99) mg/dL POC Glucose (mg/dL) 111 H (70-110) mg/dL Calcium (8.4-10.2) mg/dL Total Bilirubin (0.2-1.3) mg/dL ALT (4-49) U/L Albumin (3.5-5.0) g/dL IgE (0.00-114.00) IU/mL Assessment and Plan (1) Altered mental status Current Visit: Yes Status: Acute Code(s): R41.82 - ALTERED MENTAL STATUS, UNSPECIFIED SNOMED Code(s): 350778416 (2) Pneumonia Current Visit: Yes Status: Acute Code(s): J18.9 - PNEUMONIA, UNSPECIFIED ORGANISM SNOMED Code(s): 082638508 (3) Septic shock Current Visit: Yes Status: Acute Code(s): A41.9 - SEPSIS, UNSPECIFIED ORGANISM; R65.21 - SEVERE SEPSIS WITH SEPTIC SHOCK SNOMED Code(s): 05172331 (4) West Nile fever Current Visit: Yes Status: Acute Code(s): A92.30 - WE[place] VIRUS INFECTION, UNSPECIFIED SNOMED Code(s): 189979173 Plan: Seems more alert today. Continue supportive care. West Nile supportive care. IVIG? We'll continue to follow
[2023-03-06 08:41] LABS: IgG Subclass 1 735.6 mg/dL (382.40-928.60); IgG Subclass 2 172.7 mg/dL (241.80-700.30); IgG Subclass 3 67.1 mg/dL (21.82-176.00); IgG Subclass 4 30.7 mg/dL (3.92-86.40)
[2023-03-06] MEDS: LOSARTAN 25 MG TAB PO SCH (08:42)
[2023-03-06] MEDS: ASCORBIC ACID 500 MG TAB PO SCH (08:43)
[2023-03-06] MEDS: METOPROLOL TARTRATE 50 MG TAB PO SCH ×2 (08:43→20:46)
[2023-03-06] MEDS: ZINC SULFATE 220 MG CAP PO SCH (08:43)
[2023-03-06] MEDS: CHOLECALCIFEROL 125 MCG (5000 IU) TABLET PO SCH (08:43)
[2023-03-06] MEDS: APIXABAN 5 MG TAB PO SCH ×2 (08:43→20:46)
[2023-03-06] MEDS: LACTOBACILLUS ACIDOPHILUS/PECT 1 EACH CAPSULE PO SCH ×3 (08:43→20:46)
--- NOTE | 2023-03-06 08:58 | MR ---
EXAMINATION TYPE: MR cervical spine wo con DATE OF EXAM: 03/05/2023 COMPARISON: None HISTORY: 77-year-old male Neck pain, upper and lower extremity weakness. TECHNIQUE: Multiplanar, multisequence images of the cervical spine were acquired without contrast. FINDINGS: There is limitation due to extensive patient motion. Heterogeneous marrow signal likely reflecting diffuse red marrow hyperplasia. This can be seen with a nemia, obesity, smoking, chronic disease and can be correlated clinically. No craniocervical junction abnormality, predental space widening, or prevertebral soft tissue swellin g. There is mild to moderate multilevel degenerative disc disease with desiccated and bulging discs. Congenital interbody ankylosis C5-C6 noted. Scattered ligamentum flavum thickening with facet and uncovertebral joint arthropathy is noted. Degenerative grade 1 anterolisthesis C7-T1. Combination of disc osteophyte complex and ligamentum flavum thickening at C3-C4 contribute to a mode rate focal spinal canal stenosis. On sagittal STIR, unable to exclude some focal cord edema here, ref er to sagittal image 7. Otherwise, there is impression on the ventral thecal sac at other levels without significant spinal c anal stenosis seen. The axial images are severely limited by. Unable to adequately assess the neural foramen. IMPRESSION: 1. Mild to moderate multilevel degenerative disc disease with scattered facet and uncovertebral joint arthropathy. Degenerative grade 1 anterolisthesis C7-T1. 2. Moderate focal spinal canal stenosis at C3-C4 with abutment and flattening of both the dorsal and ventral cord. Sagittal FLAIR sequence suggests some focal cord edema here. Correlate for myelopathic symptoms. 3. The axial images are essentially nondiagnostic due to patient motion. Unable to adequately assess the neuroforamen. Text regarding canal stenosis and suspected cord edema sent to Dr. Lopez.
--- NOTE | 2023-03-06 09:28 | P.PN ---
Subjective Progress Note Date: 03/06/23 The patient is a 77-year-old male who was admitted to the hospital with a mechanical fall. The patient's had found him down on the ground and it is unknown if he had a syncopal episode. Cardiology was consulted for atrial fibrillation. He was given amiodarone bolus, which was subsequently discontin ued and started on a Cardizem drip where he has remained rate controlled. Hospital course is also a current candidate by septicemia and encephalopathy. Results on CSF fluid shows IgM for West Nile virus elevated at 8.4. The patient is more alert today. He is responding appropriately to questions. His breathing is no longer labored. GENERAL: Well-appearing, well-nourished. No distress. NECK: Supple without JVD or thyromegaly. LUNGS: Breath sounds diminished to auscultation bilaterally. Respiration equal. HEART: Irregular rate and rhythm without murmurs, rubs or gallops. S1 and S2 heard. EXTREMITIES: Normal range of motion, no edema. No clubbing or cyanosis. Peripheral pulses intact and strong. TELEMETRY: A. fib with heart rates in the 90s. Nursing staff states his rates become elevated in the afternoon between his 12 hour doses. IMPRESSION: Status post mechanical fall Persistent atrial fibrillation Hypertension Encephalopathy, secondary to West Nile Virus Septicemia Elevated liver enzymes PLAN: Add afternoon dose of metoprolol Continue supportive treatment Aggressive pulmonary hygiene Further recommendations based on clinical course I am dictating on behalf of Dr Larry Neil's history/physical and assessment/plan. Objective - Vital Signs Vital signs: Vital Signs Temp 97.7 F 03/06/23 08:00 Pulse 101 H 03/06/23 08:00 Resp 16 03/06/23 08:00 BP 119/96 03/06/23 08:00 Pulse Ox 94 L 03/06/23 08:00 FiO2 50 03/05/23 08:14 Intake & Output 03/05/23 03/06/23 03/06/23 18:59 06:59 18:59 Intake Total 1513.0 1152.5 173 Output Total 2750 1450 650 Balance -1237.0 -297.5 -477 Weight 107 kg Intake: IV 260 290 90 Invasive Line 8 30 30 10 Invasive Line 9 30 40 Piperacillin-Tazobactam 3 200 100 .375 gm In Sodium Chloride 0.9% 100 ml @ 25 mls/hr IVPB Q8HR [facility] Rx# :[id number] Sodium Chloride 0.9% 1, 160 40 000 ml @ 20 mls/hr IV . Q24H [facility] Rx#:[id number] Intake, IV Titration 84.0 146.5 Amount Immune Globulin ( 64.0 106.5 Gammagard) 30 gm In Empty Bag 1 bag @ Per Protocol IV .Q0M Rx#:[id number] Sodium Chloride 0.9% 1, 20 40 000 ml @ 20 mls/hr IV . Q24H [facility] Rx#:[id number] Tube Feeding 1079 581 83 Other 90 135 Output: Urine 2750 1450 650 Other: Voiding Method External Catheter External Catheter External Catheter # Bowel Movements 1 1 - Labs CBC & Chem 7: 03/06/23 03:54 03/06/23 08:14 Labs: Abnormal Lab Results - Last 24 Hours (Table) 03/05/23 03/05/23 03/05/23 Range/Units 11:50 13:05 13:05 RBC (4.30-5.90) m/uL Hgb (13.0-17.5) gm/dL Hct (39.0-53.0) % Chloride (98-107) mmol/L BUN (9-20) mg/dL Glucose (74-99) mg/dL POC Glucose (mg/dL) 128 H (70-110) mg/dL Calcium (8.4-10.2) mg/dL Total Bilirubin (0.2-1.3) mg/dL ALT (4-49) U/L Albumin (3.5-5.0) g/dL IgG2 172.70 L (241.80-700.30) mg/dL IgE 338.00 H (0.00-114.00) IU/mL 03/05/23 03/05/23 03/06/23 Range/Units 17:43 23:55 03:54 RBC 3.86 L (4.30-5.90) m/uL Hgb 12.7 L (13.0-17.5) gm/dL Hct 38.0 L (39.0-53.0) % Chloride (98-107) mmol/L BUN (9-20) mg/dL Glucose (74-99) mg/dL POC Glucose (mg/dL) 111 H 120 H (70-110) mg/dL Calcium (8.4-10.2) mg/dL Total Bilirubin (0.2-1.3) mg/dL ALT (4-49) U/L Albumin (3.5-5.0) g/dL IgG2 (241.80-700.30) mg/dL IgE (0.00-114.00) IU/mL 03/06/23 03/06/23 Range/Units 03:54 06:17 RBC (4.30-5.90) m/uL Hgb (13.0-17.5) gm/dL Hct (39.0-53.0) % Chloride 110 H (98-107) mmol/L BUN 22 H (9-20) mg/dL Glucose 121 H (74-99) mg/dL POC Glucose (mg/dL) 111 H (70-110) mg/dL Calcium 7.9 L (8.4-10.2) mg/dL Total Bilirubin 1.4 H (0.2-1.3) mg/dL ALT 92 H (4-49) U/L Albumin 2.7 L (3.5-5.0) g/dL IgG2 (241.80-700.30) mg/dL IgE (0.00-114.00) IU/mL
--- NOTE | 2023-03-06 11:13 | P.PN ---
Subjective Progress Note Date: 03/06/23 I am seeing this patient in new consultation today 02/24/2023 after the patient presented to the ER yesterday evening with concerns of altered mental status. Patient is a 77-year-old white male with a limited past medical history. Apparently, the patient's found him down on the ground early yesterday morning confused. His last known well time was the night prior. Nonenhanced brain CT on arrival shows age-related atrophic and chronic small vessel ischemia without any obvious acute cranial process. Initial chest x-ray on arrival showed fullness around the right hilum likely related patient rotation. Underlying infiltrate or mass not excluded. CBC shows leukocytosis with a WBC count of 16, hemoglobin 13.5, hematocrit 39.1, platelets 109,000. BMP shows sodium 136, potassium 3.7, chloride 110, serum bicarb 17, BUN 36, creatinine 1.22, glucose 102. LFTs are mildly elevated. Troponins are 1.66 and 1.9. Urinalysis not particularly concerning for UTI. Negative for influenza, RSV, COVID-19. Patient was originally admitted to the floor, and was transferred to the ICU last night for tachycardia and hypotension. Yesterday, he was given a total of 2.5 L normal saline bolus. On my evaluation, the patient is lying in bed, extremities are rigid, he is febrile with a t-max of 103 F. He is on 2 L/m nasal cannula, oxygenating around 94%. He is disoriented and unable to provide any meaningful information. He mostly mumbles. I did speak to the patient's daughter, who denies any recent sinus, ear, or pulmonary infections. I am concerned for possible encephalitis or meningitis. I spoke with neurology last night, and updated them on the patient. There is an EEG pending for the morning. Patient is empirically covered with combination of ampicillin, vancomycin, and Rocephin. Infectious disease consult was also placed. Heart rhythm is currently normal sinus on bedside monitor. Blood pressure is normotensive. Normal saline is infusing at 130 ML's per hour. No need for vasopressors at this time. Patient will need a thorough neurological workup. He is being monitored in the intensive care unit in the meantime. Patient was seen and examined today on 02/25/2023, remains in the ICU, spiking temperatures intermittently, he had a T-max of 102.9. Spinal fluid workup so far is negative for bacterial meningitis. However viral meningitis/encephalitis is not entirely ruled out, and workup is still in progress. In the meantime the patient is being followed by many consultants including infectious disease and urology. Apparently his EEG was negative for seizure activity. Labs today showed leukocytosis with WBC of 15.1 hemoglobin is normal electrolytes are normal bicarb is 20 creatinine is 1.7, improved compared to his baseline on admission liver enzymes remain at the time elevated ammonia level is normal. Drug screen was negative. CPK was elevated on admission, no CPK noted today. His pro-calcitonin level 0.31. Ultrasound of the abdomen and pelvis showed slud ge in the gallbladder, it also showed hepatomegaly, otherwise limited exam Reevaluated today on 02/26/70, remains in the ICU on 3 L nasal cannula. Patient continues to have poor mental status, seems to be obtunded, at times he may follow simple instructions like wiggling toes but most of the time he doesn't. Patient is snoring and is having episodes of apnea hence ABG was done and showed a pO2 of 82 pCO2 37 pH of 7.35. Continues to have relatively high CPK but improving 17382, renal functioning continues to be about the same. Patient has a low bicarb of 16, and I'm recommending 1 amp of bicarb to be given. So far all the diagnostic workup is nondiagnostic the West Nile virus workup is still pending. Patient did have elevated WBC count elevated pro calcitonin. Mental status is not showing any improvement whatsoever. Neurology is following. Chest x-ray continues to show left basilar atelectasis, strongly doubt pneumonia. Patient remains empirically on antibiotics. He is on Zosyn. Remains on IV fluid at 150 ML per hour in the form of 1.9 normal saline. Patient was reevaluated today on 02/27/2023, patient remains in the ICU, he is on 2 L nasal cannula, his IV fluids remains at 1 50 mL per hour in the form of 0.9 normal saline, patient is scheduled to have an MRI today. Patient seems to be more responsive today, at least he is following instructions, his speech however remains quite garbled. He knows that he is in the hospital, he knew that it is 2022, but again his speech is very quite garbled and hard to understand. Considering his presentation I believe this is a significant improvement compared to his mental status upon presentation. CBC showed Fernie Smith is better at 13.8 hemoglobin is 14.4. Basic metabolic profile is normal, renal profile is normal CPK remains a bit elevated but trending down it is over 8000 Patient was seen again on 02/28/2023 patient remains in the ICU, last night he developed an episode of atrial fibrillation with RVR, he is now on Cardizem at 2.5 mg per hour, is also on heparin drip. Remains on IV fluid at 13 0 mL per hour. CPK is down to 5256, mental status is still basically about the same as yesterday, patient seems to comprehend, he knows where he is, he knows the year, but his speech is very garbled. And seems to be very slow. Unable to swallow, hence I'm recommending a nasogastric tube to be placed and start enteral feeding on this patient sometime today. Patient was supposed to have an MRI yesterday, but because of atrial fibrillation and RVR, MRI was canceled overall the patient remains encephalopathic, but slowly improving compared to his baseline upon his initial presentation. Neurology on the case still concerned about the possibility of encephalitis/meningitis and concerned about West Nile virus, workup is still pending in the meantime the patient remains on Zosyn empirically. He is also on Keppra although his EEG showed no evidence of epileptiform focus. Patient was reevaluated today on 03/01/2023, remains on 4 L nasal cannula neurologically the patient is about the same, patient is awake, follows instructions, knows where he is, however his speech remains quite garbled. Remains on Zosyn empirically for presumptive aspiration, chest x-ray today showed worsening bilateral opacities, not clear whether this is a worsening edema or multifocal infiltrates nonetheless I will cut down his IV fluids and I will give the patient a trial of Lasix 40 mg IV push. Patient remains on aspiration precautions, could not have a nasogastric tube placed yesterday. Will cautiously feed as the patient may have some microaspiration labs today showed relatively normal CBC and normal electrolytes and normal renal profile. CPK is down to 2008 The patient is seen today 03/02/2023 in follow-up in the intensive care unit. He is currently resting comfortably in bed. Awake. Following instructions. Answering questions. Speech is still quite garbled. He is still quite weak. Chest x-ray shows improved aeration of the lungs with persistent airspace opacities scattered throughout the lungs. No pneumothorax. No large pleural effusion. Blood cultures revealed no growth. Urine culture revealed no growth. Serum spinal fluid culture revealed no growth. West Nile test still pending. White count 9.7. Hemoglobin 14.2. Platelets 160. Sodium 141. Potassium 3.7. Bicarb 29. BUN 21. Creatinine 0.61. Glucose 109. AST 82. ALT 69. Creatinine kinase 719. He did have issues with atrial fibrillation and rapid ventricular response. He's currently on a Cardizem drip at 10 mg per hour. Heparin drip. He is being nourished with vital AF at 15 ML's per hour via nasogastric tube. Pro-calcitonin 0.31. He remains on Zosyn. Maintain O2 saturations in the 90s on 2 L/m per nasal cannula. He remains afebrile. Hemodynamically stable. The patient is seen today 03/03/2023 in follow-up in the intensive care unit. He is currently on BiPAP 05/13 at 40% FiO2. MRI of the brain showed no evidence for encephalitis. No evidence of intracranial mass, acute/subacute infarct or abnormal enhancement. Chest x-ray reveals scattered parenchymal changes. Left basilar opacity. Essentially stable chest. Blood cultures revealed no growth. Urine culture revealed no growth. Cerebral spinal fluid cultures revealed no growth. White count 9.8. Hemoglobin 14.1. Platelets 180. Sodium 138. Potassium 3.7. Bicarb 30. BUN 19. Creatinine 0.59. Glucose 121. AST 82. ALT 70. He remains on a heparin drip. Remains in atrial fibrillation with better controlled ventricular response remains on Zosyn. He has been nourished with vital AF at 50 MLS per hour with a goal of 83. The patient is seen today 03/04/2023 in follow-up in the intensive care unit. Currently maintaining good O2 saturations in the 90s on 3 L/m per nasal cannula. Remains on Cardizem drip at 5 mg per hour. Normal saline at 20 ML's per hour. He is being nourished via nasogastric tube with vital AF at 75 ML's per hour with a goal of 83 ML's per hour. He did utilize BiPAP last night 19/01 and 50% FiO2. He had some episodes of atrial fibrillation with RVR again. He also had an episode of respiratory distress. Arterial blood gases revealed a pO2 of 225, pCO2 40 and a pH of 7.48. Chest x-ray did not reveal any acute changes. He remains slow to respond. His speech remains quite garbled. Currently in atrial fibrillation with a controlled ventricular rate. Sodium 140. Potassium 3.5. Bicarb 30. BUN 19. Creatinine 0.66. AST 84. ALT 92. The patient is seen today 03/05/2023 in follow-up in the intensive care unit. Neurologically remains about the same. Arousable, garbled speech. Afebrile. M aintaining good O2 saturations in the 90s on room air. Blood cultures, urine culture, cerebrospinal fluid cultures and repeat blood cultures have all been negative. 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 White count 10.0. Hemoglobin 12.9. Platelets 173. Sodium 139. Potassium 4.1. Bicarb 30. BUN 21. Creatinine 0.83. Glucose 100. Pro-calcitonin 0.07. He is currently on Zosyn per ID service. Normal saline at KVO. He is being nourished via nasogastric tube with vital AF at 83 ML's per hour which is goal. He remains in atrial fibrillation. He is on beta blockers and anticoagulated with Eliquis. The patient is seen today 03/06/2023 in follow-up in the intensive care unit. He is arousable. Able to state his name. Continues with garbled speech. Somewhat slow to respond. He is maintaining good O2 saturations in the 90s on room air. He has normal saline at 20 ML's per hour. Mean #nourished via nasogastric tube with vital AF at 83 ML's per hour which is goal. He was initiated on IVIG yesterday and the plan is for a total of 3 doses. His IgG2 was 172. IgE 338. He was also initiated on vitamins and probiotics. He is going for a MRI of the C-spine today per neurology. White count 8.6. Hemoglobin 12.7. Sodium 140. Potassium 4.2. Bicarb 26. BUN 22. Creatinine 0.69. Glucose 121. AST 59. ALT 92. Albumin 2.7. Currently in sinus rhythm. He is anticoagulated with Eliquis. Antibiotics in the form of Zosyn. Objective - Vital Signs Vital signs: Vital Signs Temp 97.7 F 03/06/23 08:00 Pulse 101 H 03/06/23 08:00 Resp 16 03/06/23 08:00 BP 119/96 03/06/23 08:00 Pulse Ox 94 L 03/06/23 08:00 FiO2 50 03/05/23 08:14 Intake & Output 03/05/23 03/06/23 03/06/23 18:59 06:59 18:59 Intake Total 1513.0 1152.5 173 Output Total 2750 1450 650 Balance -1237.0 -297.5 -477 Weight 107 kg Intake: IV 260 290 90 Invasive Line 8 30 30 10 Invasive Line 9 30 40 Piperacillin-Tazobactam 3 200 100 .375 gm In Sodium Chloride 0.9% 100 ml @ 25 mls/hr IVPB Q8HR [facility] Rx# :[id number] Sodium Chloride 0.9% 1, 160 40 000 ml @ 20 mls/hr IV . Q24H [facility] Rx#:[id number] Intake, IV Titration 84.0 146.5 Amount Immune Globulin ( 64.0 106.5 Gammagard) 30 gm In Empty Bag 1 bag @ Per Protocol IV .Q0M Rx#:[id number] Sodium Chloride 0.9% 1, 20 40 000 ml @ 20 mls/hr IV . Q24H [facility]IS Rx#:[id number] Tube Feeding 1079 581 83 Other 90 135 Output: Urine 2750 1450 650 Other: Voiding Method External Catheter External Catheter External Catheter # Bowel Movements 1 1 - Exam GENERAL EXAM: Alert, 77-year-old male, arousable, garbled speech, on room air, comfortable in no apparent distress. HEAD: Normocephalic. EYES: Normal reaction of pupils, equal size. NOSE: Nasogastric tube secured in place. Clear with pink turbinates. THROAT: No erythema or exudates. NECK: No masses, no JVD. CHEST: No chest wall deformity. LUNGS: Equal air entry with few scattered rhonchi. CVS: S1 and S2 normal with no audible murmur, irregular rhythm. ABDOMEN: No hepatosplenomegaly, normal bowel sounds, no guarding or rigidity. SPINE: No scoliosis or deformity SKIN: No rashes CENTRAL NERVOUS SYSTEM: Slow to respond, garbled speech. Tone is normal in all 4 extremities. EXTREMITIES: There is no peripheral edema. No clubbing, no cyanosis. Peripheral pulses are intact. - Labs CBC & Chem 7: 03/06/23 03:54 03/06/23 08:14 Labs: Abnormal Lab Results - Last 24 Hours (Table) 03/05/23 03/05/23 03/05/23 Range/Units 11:50 13:05 13:05 RBC (4.30-5.90) m/uL Hgb (13.0-17.5) gm/dL Hct (39.0-53.0) % Chloride (98-107) mmol/L BUN (9-20) mg/dL Glucose (74-99) mg/dL POC Glucose (mg/dL) 128 H (70-110) mg/dL Calcium (8.4-10.2) mg/dL Total Bilirubin (0.2-1.3) mg/dL ALT (4-49) U/L Albumin (3.5-5.0) g/dL IgG2 172.70 L (241.80-700.30) mg/dL IgE 338.00 H (0.00-114.00) IU/mL 03/05/23 03/05/23 03/06/23 Range/Units 17:43 23:55 03:54 RBC 3.86 L (4.30-5.90) m/uL Hgb 12.7 L (13.0-17.5) gm/dL Hct 38.0 L (39.0-53.0) % Chloride (98-107) mmol/L BUN (9-20) mg/dL Glucose (74-99) mg/dL POC Glucose (mg/dL) 111 H 120 H (70-110) mg/dL Calcium (8.4-10.2) mg/dL Total Bilirubin (0.2-1.3) mg/dL ALT (4-49) U/L Albumin (3.5-5.0) g/dL IgG2 (241.80-700.30) mg/dL IgE (0.00-114.00) IU/mL 03/06/23 03/06/23 Range/Units 03:54 06:17 RBC (4.30-5.90) m/uL Hgb (13.0-17.5) gm/dL Hct (39.0-53.0) % Chloride 110 H (98-107) mmol/L BUN 22 H (9-20) mg/dL Glucose 121 H (74-99) mg/dL POC Glucose (mg/dL) 111 H (70-110) mg/dL Calcium 7.9 L (8.4-10.2) mg/dL Total Bilirubin 1.4 H (0.2-1.3) mg/dL ALT 92 H (4-49) U/L Albumin 2.7 L (3.5-5.0) g/dL IgG2 (241.80-700.30) mg/dL IgE (0.00-114.00) IU/mL Assessment and Plan Assessment: Encephalopathy, secondary to the West Nile virus. Initiated on IVIG 3 doses Acute febrile illness and sepsis, no obvious infectious process identified yet, all cultures have been negative so far. Leukocytosis, resolved, possible aspiration pneumonia. Currently on Zosyn, procalcitonin 0.31. Follow-up pro-calcitonin 0.07. Acute rhabdomyolysis, significantly elevated CPK, improving with hydration, CPK is down to 719 Elevated LFTs, ultrasound showed hepatomegaly Elevated troponins, possibly related to supply/demand mismatch Atrial fibrillation with rapid ventricular response requiring Cardizem, heparin drip. Transitioned to oral beta blockers and Eliquis Plan: The patient was seen and evaluated Labs and medications reviewed Initiated on IVIG Being nourished via NG tube with vital AF MRI of the cervical spine pending today We will continue to follow I have personally seen and examined the patient, performed the documentation and the assessment and plan as written. Number of minutes spent on the visit: 10.
[2023-03-06] MEDS ORDERED: IMMUNE GLOBULIN (GAMMAGARD) 30 GM in EMPTY BAG 1 BAG IV NR ×4 (12:00)
[2023-03-06] MEDS ORDERED: IMMUNE GLOBULIN (GAMMAGARD) 5 GM in EMPTY BAG 1 BAG IV NR (12:00)
[2023-03-06 12:18] LABS: Glucose,Whole Blood 107 mg/dL (70-110)
--- NOTE | 2023-03-06 13:09 | P.PN ---
Subjective Progress Note Date: 03/06/23 I am following up with the patient and per the patient's nurse and she stated that that the patient is responding better. I was updated by reading radiologist possible cervical myelopathy on MRI C- spine. Objective - Vital Signs Vital signs: Vital Signs Temp 98.6 F 03/06/23 12:00 Pulse 73 03/06/23 12:00 Resp 16 03/06/23 12:00 BP 120/75 03/06/23 12:00 Pulse Ox 95 03/06/23 12:00 FiO2 50 03/05/23 08:14 Intake & Output 03/05/23 03/06/23 03/06/23 18:59 06:59 18:59 Intake Total 1513.0 1152.5 898.25 Output Total 2750 1450 1100 Balance -1237.0 -297.5 -201.75 Weight 107 kg Intake: IV 260 290 170 Invasive Line 8 30 30 10 Invasive Line 9 30 40 Piperacillin-Tazobactam 3 200 100 .375 gm In Sodium Chloride 0.9% 100 ml @ 25 mls/hr IVPB Q8HR [facility] Rx# :[id number] Sodium Chloride 0.9% 1, 160 120 000 ml @ 20 mls/hr IV . Q24H [facility] Rx#:[id number] Intake, IV Titration 84.0 146.5 170.25 Amount Immune Globulin ( 64.0 106.5 Gammagard) 30 gm In Empty Bag 1 bag @ Per Protocol IV .Q0M NR Rx#:[id number] Immune Globulin ( 170.25 Gammagard) 30 gm In Empty Bag 1 bag @ Per Protocol IV .Q0M NR Rx#:[id number] Sodium Chloride 0.9% 1, 20 40 000 ml @ 20 mls/hr IV . Q24H [facility] Rx#:[id number] Tube Feeding 1079 581 498 Other 90 135 60 Output: Urine 2750 1450 1100 Other: Voiding Method External Catheter External Catheter External Catheter # Bowel Movements 1 1 2 - Exam General: The patient is lying in bed and does not appear in acute distress. Neuro: Limited because of his condition. Patient is mild drowsy but is awakeable to verbal stimuli. He is oriented to self. He followed very few minimal simple commands such as showing a thumbs up and wiggling the toes, opening and closing eyes. Right pupil is about 3 mm and the left is about 2mm and reactive to light. No facial weakness. Motor: Strength is hard to assess because of his significant pain. Upon lifting his arms above he was in pain. He'll squeeze my hands equally bilaterally. He'll wiggle both toes but he would not raise bilateral legs above gravity. - Labs CBC & Chem 7: 03/06/23 03:54 03/06/23 08:14 Labs: Abnormal Lab Results - Last 24 Hours (Table) 03/05/23 03/05/23 03/05/23 Range/Units 13:05 13:05 17:43 RBC (4.30-5.90) m/uL Hgb (13.0-17.5) gm/dL Hct (39.0-53.0) % Chloride (98-107) mmol/L BUN (9-20) mg/dL Glucose (74-99) mg/dL POC Glucose (mg/dL) 111 H (70-110) mg/dL Calcium (8.4-10.2) mg/dL Total Bilirubin (0.2-1.3) mg/dL ALT (4-49) U/L Albumin (3.5-5.0) g/dL IgG2 172.70 L (241.80-700.30) mg/dL IgE 338.00 H (0.00-114.00) IU/mL 03/05/23 03/06/23 03/06/23 Range/Units 23:55 03:54 03:54 RBC 3.86 L (4.30-5.90) m/uL Hgb 12.7 L (13.0-17.5) gm/dL Hct 38.0 L (39.0-53.0) % Chloride 110 H (98-107) mmol/L BUN 22 H (9-20) mg/dL Glucose 121 H (74-99) mg/dL POC Glucose (mg/dL) 120 H (70-110) mg/dL Calcium 7.9 L (8.4-10.2) mg/dL Total Bilirubin 1.4 H (0.2-1.3) mg/dL ALT 92 H (4-49) U/L Albumin 2.7 L (3.5-5.0) g/dL IgG2 (241.80-700.30) mg/dL IgE (0.00-114.00) IU/mL 03/06/23 Range/Units 06:17 RBC (4.30-5.90) m/uL Hgb (13.0-17.5) gm/dL Hct (39.0-53.0) % Chloride (98-107) mmol/L BUN (9-20) mg/dL Glucose (74-99) mg/dL POC Glucose (mg/dL) 111 H (70-110) mg/dL Calcium (8.4-10.2) mg/dL Total Bilirubin (0.2-1.3) mg/dL ALT (4-49) U/L Albumin (3.5-5.0) g/dL IgG2 (241.80-700.30) mg/dL IgE (0.00-114.00) IU/mL Assessment and Plan Assessment: * Acute onset with high grade fever and leukocytosis and severe encephalopathy: 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 Per Dr. Mills had nuchal and generalized rigidity and some tremulousness. CSF is negative for meningoencephalitis---His fever and leukocytosis has improved but he continues to be slow responding with generalized weakness * Acute metabolic encephalopathy likely encephalitis and from severe pneumonia * Generalized weakness due to above and component of possible ?cervical myelopathy of MRI C-spine (has cord edema at C3-C4 on FLAIR) * SIRS, pneumonia * Acute rhabdomyolysis, resolving * Elevated cardiac enzymes * New onset atrial fibrillation currently on heparin IV drip. * History of bilateral shoulder pain/arthritis * History of bilateral knee replacement. Plan: * CT head was performed 02/28/2023 revealed no acute intracranial process. Nonspecific white matter changes, likely secondary to chronic small vessel ischemic disease. I personally reviewed CT head, agree with the findings. * MRI Brain w/ and w/o: Was reported as no evidence for encephalitis. No evidence of intracranial mass, acute/subacute infarct or abnormal enhancement. Nonspecific white matter changes, likely related to small vessel ischemic disease. * Initial EEG revealed background slowing and disorganization of mild degree suggestive of encephalopathy. There is no epileptiform activity. * EEG performed on 03/01/23 was abnormal due to background slowing of moderate degree consistent with encephalopathy. No epileptiform activity was seen. When compared to the initial EEG from 02/24/2023, the background seems to have gotten worse. * Chest x-ray performed today revealed worsening bilateral multifocal opacities consistent with worsening edema and/or multifocal acute infiltrates. Pulmonary, ID and cardiology on on board. * CSF performed 02/24/2023 was colorless and clear. CSF glucose 52, protein 86 (12-60). WBC count 4, RBCs 358. Comprehensive viral detection negative. 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 For west nile it is usually supportive care. * Patient is currently on Zosyn for possible pneumonia. I.D. is on board. * He was started on Keppra 750 mg twice a day for now by Dr. Mills and he recommended to start tapering off Keppra, when mentation improves. If by tomorrow mentation continue to improve will slowly titrate it down. * MRI Cervical spine w/ and w/o: Is reported as mild to moderate multilevel degenerative disc disease with scattered facet and uncovertebral joint. Appendectomy. Degenerative grade 1 anterolisthesis C7 to T1. Moderate focal signal canal stenosis at C3-C4 with abutment and flattening of both the dorsal and ventral cord. Sagittal FLAIR sequence suggest some focal cord edema here. Correlate for myelopathic symptoms. The axial images are essentially nondiagnostic due to patient motion. Unable to adequately assess then neuroforamen. As a result I consulted the orthopedic surgery team. * CT chest, abdomen and pelvis: It is reported as there is thickening enlargement of the right psoas musculature and iliacus musculature with heterogeneity seen. Finding are likely reflective of retroperitoneal hemorrhage however on image 100 there is small focus of decreased attenuation measuring 1.3 cm with possible small focus of air. Small abscess is not excluded. Basilar pleural effusion and compressive atelectasis with scattered groundglass infiltrates. We'll defer further management to the primary team and I.D. team. Consider stopping anticoagulation and possible general surgery team consultation. * Cardiology on board for new onset atrial fibrillation. Patient currently on heparin drip. * CK has drastically improved. * Discussed with ICU attending. The plan is discussed with patient's nurse. Will continue to follow. Time with Patient: Less than 30
--- NOTE | 2023-03-06 14:59 | P.PN ---
Subjective Progress Note Date: 03/06/23 Principal diagnosis: Fever Patient is a 77-year-old male presenting to the hospital after the patient was found to be unresponsive by the , patient has been febrile initial testing negative including LP which was only mildly elevated protein. On today's evaluation that is 03/06/2023, the patient continues to be afebrile, , the patient is breathing comfortably on room air , the patient mentation about the same the patient to respond to his name and follow some simple question patient did have NG for feeding and no significant diarrhea has been reported by the nursing staff patient did have white count of 8.6, creatinine 0.69, the patient west nile IgM came back positive on CSF Objective - Vital Signs Vital signs: Vital Signs Temp 97.7 F 03/06/23 08:00 Pulse 101 H 03/06/23 08:00 Resp 16 03/06/23 08:00 BP 119/96 03/06/23 08:00 Pulse Ox 94 L 03/06/23 08:00 FiO2 50 03/05/23 08:14 Intake & Output 03/05/23 03/06/23 03/06/23 18:59 06:59 18:59 Intake Total 1513.0 1152.5 173 Output Total 2750 1450 650 Balance -1237.0 -297.5 -477 Weight 107 kg Intake: IV 260 290 90 Invasive Line 8 30 30 10 Invasive Line 9 30 40 Piperacillin-Tazobactam 3 200 100 .375 gm In Sodium Chloride 0.9% 100 ml @ 25 mls/hr IVPB Q8HR HARIS Rx# :[id number] Sodium Chloride 0.9% 1, 160 40 000 ml @ 20 mls/hr IV . Q24H HARIS Rx#:[id number] Intake, IV Titration 84.0 146.5 Amount Immune Globulin ( 64.0 106.5 Gammagard) 30 gm In Empty Bag 1 bag @ Per Protocol IV .Q0M Rx#:[id number] Sodium Chloride 0.9% 1, 20 40 000 ml @ 20 mls/hr IV . Q24H HARIS Rx#:[id number] Tube Feeding 1079 581 83 Other 90 135 Output: Urine 2750 1450 650 Other: Voiding Method External Catheter External Catheter External Catheter # Bowel Movements 1 1 - Exam GENERAL DESCRIPTION: An elderly male lying in bed in no distress RESPIRATORY SYSTEM: Unlabored breathing , coarse breath sounds bilaterally HEART: S1 S2 regular rate and rhythm , ABDOMEN: Soft , no tenderness EXTREMITIES: No edema feet - Labs CBC & Chem 7: 03/06/23 03:54 03/06/23 08:14 Labs: Abnormal Lab Results - Last 24 Hours (Table) 03/05/23 03/05/23 03/05/23 Range/Units 11:50 13:05 13:05 RBC (4.30-5.90) m/uL Hgb (13.0-17.5) gm/dL Hct (39.0-53.0) % Chloride (98-107) mmol/L BUN (9-20) mg/dL Glucose (74-99) mg/dL POC Glucose (mg/dL) 128 H (70-110) mg/dL Calcium (8.4-10.2) mg/dL Total Bilirubin (0.2-1.3) mg/dL ALT (4-49) U/L Albumin (3.5-5.0) g/dL IgG2 172.70 L (241.80-700.30) mg/dL IgE 338.00 H (0.00-114.00) IU/mL 03/05/23 03/05/23 03/06/23 Range/Units 17:43 23:55 03:54 RBC 3.86 L (4.30-5.90) m/uL Hgb 12.7 L (13.0-17.5) gm/dL Hct 38.0 L (39.0-53.0) % Chloride (98-107) mmol/L BUN (9-20) mg/dL Glucose (74-99) mg/dL POC Glucose (mg/dL) 111 H 120 H (70-110) mg/dL Calcium (8.4-10.2) mg/dL Total Bilirubin (0.2-1.3) mg/dL ALT (4-49) U/L Albumin (3.5-5.0) g/dL IgG2 (241.80-700.30) mg/dL IgE (0.00-114.00) IU/mL 03/06/23 03/06/23 Range/Units 03:54 06:17 RBC (4.30-5.90) m/uL Hgb (13.0-17.5) gm/dL Hct (39.0-53.0) % Chloride 110 H (98-107) mmol/L BUN 22 H (9-20) mg/dL Glucose 121 H (74-99) mg/dL POC Glucose (mg/dL) 111 H (70-110) mg/dL Calcium 7.9 L (8.4-10.2) mg/dL Total Bilirubin 1.4 H (0.2-1.3) mg/dL ALT 92 H (4-49) U/L Albumin 2.7 L (3.5-5.0) g/dL IgG2 (241.80-700.30) mg/dL IgE (0.00-114.00) IU/mL Assessment and Plan (1) Fever Current Visit: Yes Status: Acute Code(s): R50.9 - FEVER, UNSPECIFIED SNOMED Code(s): 159473024 (2) Pneumonia Current Visit: Yes Status: Acute Code(s): J18.9 - PNEUMONIA, UNSPECIFIED ORGANISM SNOMED Code(s): 305914190 (3) West Nile Virus infection Current Visit: Yes Status: Acute Code(s): A92.30 - WEST NILE VIRUS INFECTION, UNSPECIFIED SNOMED Code(s): 730772345 Plan: 1patient with SIRS in this patient with a fever elevated white count tachycardia with significant mental status changes high clinical suspicious for possible encephalitis/meningitis however the patient LP is relatively clear only mildly elevated protein of 86 patient chest x-ray negative for pneumonia urine has been negative mildly elevated liver enzymes and the patient did have evidence of rhabdomyolysis as the patient has been on the floor for more than 12 hours however no evidence of any bruising or injury has been noticed abdominal soft on clinical examination 2- ultrasound of the abdomen sludge versus artifact in the gallbladder no other abnormality noticed 3- hepatitis panel is negative, blood and CSF cultures so far negative 4-West Nile 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 back positive suggestive of West Nile virus and cellulitis/infection, the treatment is mostly supportive this has been discussed in detail with the daughter at the bedside who asked for antiviral treatment, currently no studies support the use of ribavirin or acyclovir, steroids is also questionable, there is some role for immunoglobulin infusion which has been started as of yesterday and will be continued 4 patient also have a congested cough and question of possible aspiration pneumonitis, patient to continue with Zosyn and monitor clinical course closely Dictation was produced using [employer] dictation software. please excuse any grammatical, word or spelling errors. Time with Patient: Less than 30
[2023-03-06 18:37] LABS: Glucose,Whole Blood 112 mg/dL (70-110)
--- NOTE | 2023-03-06 21:55 | P.CNOR ---
History of Present Illness - [facility] Consult date: 03/06/23 Requesting physician: Jose G Lopez Consult reason: other (possible cervical myelopathy with weakness throughout.) History of present illness: Patient is a 77-year-old male who presents to the emergency department and [facility]23 due to mental status changes. Patient has been in the hospital for 11 days and orthopedics was consulted today for possible myelopathy based on findings from cervical MRI. Patient was seen at bedside this afternoon in the ICU and was not able to follow commands. Daughter was present during counter at bedside and gave history of patient. Daughter states that patient normally is able to walk under his own power and had been bowling and active before his mental state changed where he was brought to the hospital. Patient has been worked up over the past week and half bath medicine and other specialties including pulmonology and neurology. Patient does present with septic shock as well as encephalitis with positive West Nile virus. Patient did respond and grumbled to physical stimuli. Patient's daughter states that prior to coming the hospital patient had been doing with chronic shoulder pain. 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 Patient's daughter states that she doesn't think he has had any back surgery in the past. Daughter states that patient had no issues with fine motor skills prior to coming the hospital with a change in mental state. Past Medical History Past Medical History: No Reported History Additional Past Medical History / Comment(s): Per EMS- patient has no significant medical history and does not take any medications. History of Any Multi-Drug Resistant Organisms: None Reported Past Surgical History: Joint Replacement Additional Past Surgical History / Comment(s): Knee replacement x 2 Past Anesthesia/Blood Transfusion Reactions: No Reported Reaction Past Psychological History: No Psychological Hx Reported Smoking Status: Former smoker Medications and Allergies Home Medications Medication Instructions Recorded Confirmed Type No Known Home Medications 02/23/23 02/23/23 History Allergies Allergy/AdvReac Type Severity Reaction Status Date / Time No Known Allergies Allergy Verified 02/23/23 12:32 Physical Examination Negative for any open fractures significant ecchymosis/erythema/open wounds. Patient does appear to be rigid as he holds right arm with elbow 90 flexed and clenched fist. Patient does respond to deep touch in the bilateral upper extremities. Patient does moan somewhat during passive range of motion in the upper extremities. Motor exam limited due to patient's state. Radial pulses intact bilaterally. Cap refill under 3 seconds in digits of upper extremities. Negative Homans bilaterally. Negative Kieran bilaterally. Results - Labs Labs: Abnormal Lab Results - Last 24 Hours (Table) 03/05/23 03/05/23 03/05/23 Range/Units 13:05 13:05 23:55 RBC (4.30-5.90) m/uL Hgb (13.0-17.5) gm/dL Hct (39.0-53.0) % Chloride (98-107) mmol/L BUN (9-20) mg/dL Glucose (74-99) mg/dL POC Glucose (mg/dL) 120 H (70-110) mg/dL Calcium (8.4-10.2) mg/dL Total Bilirubin (0.2-1.3) mg/dL ALT (4-49) U/L Albumin (3.5-5.0) g/dL IgG2 172.70 L (241.80-700.30) mg/dL IgE 338.00 H (0.00-114.00) IU/mL 03/06/23 03/06/23 03/06/23 Range/Units 03:54 03:54 06:17 RBC 3.86 L (4.30-5.90) m/uL Hgb 12.7 L (13.0-17.5) gm/dL Hct 38.0 L (39.0-53.0) % Chloride 110 H (98-107) mmol/L BUN 22 H (9-20) mg/dL Glucose 121 H (74-99) mg/dL POC Glucose (mg/dL) 111 H (70-110) mg/dL Calcium 7.9 L (8.4-10.2) mg/dL Total Bilirubin 1.4 H (0.2-1.3) mg/dL ALT 92 H (4-49) U/L Albumin 2.7 L (3.5-5.0) g/dL IgG2 (241.80-700.30) mg/dL IgE (0.00-114.00) IU/mL 03/06/23 Range/Units 18:35 RBC (4.30-5.90) m/uL Hgb (13.0-17.5) gm/dL Hct (39.0-53.0) % Chloride (98-107) mmol/L BUN (9-20) mg/dL Glucose (74-99) mg/dL POC Glucose (mg/dL) 112 H (70-110) mg/dL Calcium (8.4-10.2) mg/dL Total Bilirubin (0.2-1.3) mg/dL ALT (4-49) U/L Albumin (3.5-5.0) g/dL IgG2 (241.80-700.30) mg/dL IgE (0.00-114.00) IU/mL H & H 02/23/23 02/24/23 02/25/23 Range/Units 12:30 05:47 05:19 Hgb 15.9 13.5 13.1 (13.0-17.5) gm/dL Hct 45.7 39.1 37.4 L (39.0-53.0) % 02/26/23 02/27/23 02/28/23 Range/Units 06:28 06:28 04:38 Hgb 15.0 14.4 14.0 (13.0-17.5) gm/dL Hct 44.4 43.0 41.5 (39.0-53.0) % 03/01/23 03/02/23 03/03/23 Range/Units 04:26 04:14 04:37 Hgb 13.1 14.2 13.6 (13.0-17.5) gm/dL Hct 38.7 L 42.1 41.0 (39.0-53.0) % 03/03/23 03/05/23 03/06/23 Range/Units 09:18 05:16 03:54 Hgb 14.1 12.9 L 12.7 L (13.0-17.5) gm/dL Hct 41.1 37.8 L 38.0 L (39.0-53.0) % Coagulation 02/23/23 Range/Units 12:30 INR 1.1 (<1.2) Result Diagrams: 03/06/23 03:54 03/06/23 08:14 - Diagnostic results Cervical MRI with/without contrast: report reviewed, image reviewed (Cervical MRI was reviewed. There is evident moderate central canal stenosis at C3-C4. Positive for degenerative disc disease. Axial images were not able to be assessed due to to the patient moving during the exam.) Assessment and Plan Assessment: 1. Bilateral upper extremity rigidity; cervical stenosis; degenerative disc disease Plan: 1. Bilateral upper extremity rigidity; cervical stenosis; degenerative disc disease - patient examined at bedside this afternoon in the ICU with daughter present during encounter. Exam was very limited and Kieran test was difficult to perform due to patient's rigid state. I did discuss the findings of the cervical MRI with daughter at bedside. Cervical MRI was reviewed. There is evident moderate central canal stenosis at C3-C4. Positive for degenerative disc disease. Axial images were not able to be assessed due to to the patient moving during the exam. Cervical changes are likely chronic in nature and due to the patient's very rapid progression and change in mental state prior to coming to the hospital, very unlikely to be any acute emergent/urgent changes in the cervical spine. More likely chronic in nature. At this time we are not recommending any emergent/urgent orthopedic surgical intervention. At this time we'll defer rest of management to the primary care team and we will be available as needed. Patient needs to be medically stabilized for further evaluation. Orthopedics is signing off at this time. Please do not hesitate to contact us for any further questions. 2. Appreciate medical and is been other specialties 3. Pain management - Tylenol 4. DVT prophylaxis - Eliquis 5. GI prophylaxis - Protonix 6. PT/OT - perform passive range of motion exercises of bilateral upper and lower extremities. 7. Appreciate consult Time with Patient: Less than 30
[2023-03-07 00:21] LABS: Glucose,Whole Blood 106 mg/dL (70-110)
[2023-03-07 05:56] LABS: Glucose,Whole Blood 105 mg/dL (70-110)
[2023-03-07] MEDS: PIPERACILLIN-TAZOBACTAM 3.375 GM in SODIUM CHLORIDE 0.9% 100 ML IVPB SCH ×2 (08:38→16:33)
[2023-03-07] MEDS: levETIRAcetam IV 500 MG/5 ML VIAL IVP SCH ×2 (09:09→21:40)
[2023-03-07] MEDS: CHOLECALCIFEROL 125 MCG (5000 IU) TABLET PO SCH (09:10)
[2023-03-07] MEDS: ASCORBIC ACID 500 MG TAB PO SCH (09:10)
[2023-03-07] MEDS: ZINC SULFATE 220 MG CAP PO SCH (09:10)
[2023-03-07] MEDS: PANTOPRAZOLE 40 MG/10 ML VIAL IVP SCH (09:10)
[2023-03-07] MEDS: APIXABAN 5 MG TAB PO SCH ×2 (09:10→21:41)
[2023-03-07] MEDS: LACTOBACILLUS ACIDOPHILUS/PECT 1 EACH CAPSULE PO SCH ×3 (09:11→21:40)
[2023-03-07] MEDS: LOSARTAN 25 MG TAB PO SCH (09:11)
[2023-03-07] MEDS: METOPROLOL TARTRATE 50 MG TAB PO SCH ×3 (09:11→21:40)
[2023-03-07] MEDS: SODIUM CHLORIDE 0.9% 1,000 ML IV SCH (10:01)
--- NOTE | 2023-03-07 11:56 | P.PN ---
Subjective Progress Note Date: 03/07/23 I am seeing this patient in new consultation today 02/24/2023 after the patient presented to the ER yesterday evening with concerns of altered mental status. Patient is a 77-year-old white male with a limited past medical history. Apparently, the patient's found him down on the ground early yesterday morning confused. His last known well time was the night prior. Nonenhanced brain CT on arrival shows age-related atrophic and chronic small vessel ischemia without any obvious acute cranial process. Initial chest x-ray on arrival showed fullness around the right hilum likely related patient rotation. Underlying infiltrate or mass not excluded. CBC shows leukocytosis with a WBC count of 16, hemoglobin 13.5, hematocrit 39.1, platelets 109,000. BMP shows sodium 136, potassium 3.7, chloride 110, serum bicarb 17, BUN 36, creatinine 1.22, glucose 102. LFTs are mildly elevated. Troponins are 1.66 and 1.9. Urinalysis not particularly concerning for UTI. Negative for influenza, RSV, COVID-19. Patient was originally admitted to the floor, and was transferred to the ICU last night for tachycardia and hypotension. Yesterday, he was given a total of 2.5 L normal saline bolus. On my evaluation, the patient is lying in bed, extremities are rigid, he is febrile with a t-max of 103 F. He is on 2 L/m nasal cannula, oxygenating around 94%. He is disoriented and unable to provide any meaningful information. He mostly mumbles. I did speak to the patient's daughter, who denies any recent sinus, ear, or pulmonary infections. I am concerned for possible encephalitis or meningitis. I spoke with neurology last night, and updated them on the patient. There is an EEG pending for the morning. Patient is empirically covered with combination of ampicillin, vancomycin, and Rocephin. Infectious disease consult was also placed. Heart rhythm is currently normal sinus on bedside monitor. Blood pressure is normotensive. Normal saline is infusing at 130 ML's per hour. No need for vasopressors at this time. Patient will need a thorough neurological workup. He is being monitored in the intensive care unit in the meantime. Patient was seen and examined today on 02/25/2023, remains in the ICU, spiking temperatures intermittently, he had a T-max of 102.9. Spinal fluid workup so far is negative for bacterial meningitis. However viral meningitis/encephalitis is not entirely ruled out, and workup is still in progress. In the meantime the patient is being followed by many consultants including infectious disease and urology. Apparently his EEG was negative for seizure activity. Labs today showed leukocytosis with WBC of 15.1 hemoglobin is normal electrolytes are normal bicarb is 20 creatinine is 1.7, improved compared to his baseline on admission liver enzymes remain at the time elevated ammonia level is normal. Drug screen was negative. CPK was elevated on admission, no CPK noted today. His pro-calcitonin level 0.31. Ultrasound of the abdomen and pelvis showed slud ge in the gallbladder, it also showed hepatomegaly, otherwise limited exam Reevaluated today on 02/26/70, remains in the ICU on 3 L nasal cannula. Patient continues to have poor mental status, seems to be obtunded, at times he may follow simple instructions like wiggling toes but most of the time he doesn't. Patient is snoring and is having episodes of apnea hence ABG was done and showed a pO2 of 82 pCO2 37 pH of 7.35. Continues to have relatively high CPK but improving 23868, renal functioning continues to be about the same. Patient has a low bicarb of 16, and I'm recommending 1 amp of bicarb to be given. So far all the diagnostic workup is nondiagnostic the West Nile virus workup is still pending. Patient did have elevated WBC count elevated pro calcitonin. Mental status is not showing any improvement whatsoever. Neurology is following. Chest x-ray continues to show left basilar atelectasis, strongly doubt pneumonia. Patient remains empirically on antibiotics. He is on Zosyn. Remains on IV fluid at 150 ML per hour in the form of 1.9 normal saline. Patient was reevaluated today on 02/27/2023, patient remains in the ICU, he is on 2 L nasal cannula, his IV fluids remains at 1 50 mL per hour in the form of 0.9 normal saline, patient is scheduled to have an MRI today. Patient seems to be more responsive today, at least he is following instructions, his speech however remains quite garbled. He knows that he is in the hospital, he knew that it is 2022, but again his speech is very quite garbled and hard to understand. Considering his presentation I believe this is a significant improvement compared to his mental status upon presentation. CBC showed Fernie Smith is better at 13.8 hemoglobin is 14.4. Basic metabolic profile is normal, renal profile is normal CPK remains a bit elevated but trending down it is over 8000 Patient was seen again on 02/28/2023 patient remains in the ICU, last night he developed an episode of atrial fibrillation with RVR, he is now on Cardizem at 2.5 mg per hour, is also on heparin drip. Remains on IV fluid at 13 0 mL per hour. CPK is down to 5256, mental status is still basically about the same as yesterday, patient seems to comprehend, he knows where he is, he knows the year, but his speech is very garbled. And seems to be very slow. Unable to swallow, hence I'm recommending a nasogastric tube to be placed and start enteral feeding on this patient sometime today. Patient was supposed to have an MRI yesterday, but because of atrial fibrillation and RVR, MRI was canceled overall the patient remains encephalopathic, but slowly improving compared to his baseline upon his initial presentation. Neurology on the case still concerned about the possibility of encephalitis/meningitis and concerned about West Nile virus, workup is still pending in the meantime the patient remains on Zosyn empirically. He is also on Keppra although his EEG showed no evidence of epileptiform focus. Patient was reevaluated today on 03/01/2023, remains on 4 L nasal cannula neurologically the patient is about the same, patient is awake, follows instructions, knows where he is, however his speech remains quite garbled. Remains on Zosyn empirically for presumptive aspiration, chest x-ray today showed worsening bilateral opacities, not clear whether this is a worsening edema or multifocal infiltrates nonetheless I will cut down his IV fluids and I will give the patient a trial of Lasix 40 mg IV push. Patient remains on aspiration precautions, could not have a nasogastric tube placed yesterday. Will cautiously feed as the patient may have some microaspiration labs today showed relatively normal CBC and normal electrolytes and normal renal profile. CPK is down to 2008 The patient is seen today 03/02/2023 in follow-up in the intensive care unit. He is currently resting comfortably in bed. Awake. Following instructions. Answering questions. Speech is still quite garbled. He is still quite weak. Chest x-ray shows improved aeration of the lungs with persistent airspace opacities scattered throughout the lungs. No pneumothorax. No large pleural effusion. Blood cultures revealed no growth. Urine culture revealed no growth. Serum spinal fluid culture revealed no growth. West Nile test still pending. White count 9.7. Hemoglobin 14.2. Platelets 160. Sodium 141. Potassium 3.7. Bicarb 29. BUN 21. Creatinine 0.61. Glucose 109. AST 82. ALT 69. Creatinine kinase 719. He did have issues with atrial fibrillation and rapid ventricular response. He's currently on a Cardizem drip at 10 mg per hour. Heparin drip. He is being nourished with vital AF at 15 ML's per hour via nasogastric tube. Pro-calcitonin 0.31. He remains on Zosyn. Maintain O2 saturations in the 90s on 2 L/m per nasal cannula. He remains afebrile. Hemodynamically stable. The patient is seen today 03/03/2023 in follow-up in the intensive care unit. He is currently on BiPAP 05/13 at 40% FiO2. MRI of the brain showed no evidence for encephalitis. No evidence of intracranial mass, acute/subacute infarct or abnormal enhancement. Chest x-ray reveals scattered parenchymal changes. Left basilar opacity. Essentially stable chest. Blood cultures revealed no growth. Urine culture revealed no growth. Cerebral spinal fluid cultures revealed no growth. White count 9.8. Hemoglobin 14.1. Platelets 180. Sodium 138. Potassium 3.7. Bicarb 30. BUN 19. Creatinine 0.59. Glucose 121. AST 82. ALT 70. He remains on a heparin drip. Remains in atrial fibrillation with better controlled ventricular response remains on Zosyn. He has been nourished with vital AF at 50 MLS per hour with a goal of 83. The patient is seen today 03/04/2023 in follow-up in the intensive care unit. Currently maintaining good O2 saturations in the 90s on 3 L/m per nasal cannula. Remains on Cardizem drip at 5 mg per hour. Normal saline at 20 ML's per hour. He is being nourished via nasogastric tube with vital AF at 75 ML's per hour with a goal of 83 ML's per hour. He did utilize BiPAP last night 19/01 and 50% FiO2. He had some episodes of atrial fibrillation with RVR again. He also had an episode of respiratory distress. Arterial blood gases revealed a pO2 of 225, pCO2 40 and a pH of 7.48. Chest x-ray did not reveal any acute changes. He remains slow to respond. His speech remains quite garbled. Currently in atrial fibrillation with a controlled ventricular rate. Sodium 140. Potassium 3.5. Bicarb 30. BUN 19. Creatinine 0.66. AST 84. ALT 92. The patient is seen today 03/05/2023 in follow-up in the intensive care unit. Neurologically remains about the same. Arousable, garbled speech. Afebrile. M aintaining good O2 saturations in the 90s on room air. Blood cultures, urine culture, cerebrospinal fluid cultures and repeat blood cultures have all been negative. 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 White count 10.0. Hemoglobin 12.9. Platelets 173. Sodium 139. Potassium 4.1. Bicarb 30. BUN 21. Creatinine 0.83. Glucose 100. Pro-calcitonin 0.07. He is currently on Zosyn per ID service. Normal saline at KVO. He is being nourished via nasogastric tube with vital AF at 83 ML's per hour which is goal. He remains in atrial fibrillation. He is on beta blockers and anticoagulated with Eliquis. The patient is seen today 03/06/2023 in follow-up in the intensive care unit. He is arousable. Able to state his name. Continues with garbled speech. Somewhat slow to respond. He is maintaining good O2 saturations in the 90s on room air. He has normal saline at 20 ML's per hour. Mean #nourished via nasogastric tube with vital AF at 83 ML's per hour which is goal. He was initiated on IVIG yesterday and the plan is for a total of 3 doses. His IgG2 was 172. IgE 338. He was also initiated on vitamins and probiotics. He is going for a MRI of the C-spine today per neurology. White count 8.6. Hemoglobin 12.7. Sodium 140. Potassium 4.2. Bicarb 26. BUN 22. Creatinine 0.69. Glucose 121. AST 59. ALT 92. Albumin 2.7. Currently in sinus rhythm. He is anticoagulated with Eliquis. Antibiotics in the form of Zosyn. The patient is seen today 03/07/2023 in follow-up in the intensive care unit. He is a bit more alert today. Still with garbled speech. Still waxing and waning. He is maintaining good O2 saturations in the upper 90s on room air. He's currently afebrile. Hemodynamically stable. Urine and blood, cerebrospinal fluid and follow up blood cultures have all revealed no growth. Testing positive for West Nile. 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 Moderate focal spinal canal stenosis. Continues to receive IVIG. [place] on Zosyn. Remains on vitamin supplements. Anticoagulated with Eliquis. Nasogastric tube remains in place. He is on vital AF at 83 ML's per hour which is goal. Objective - Vital Signs Vital signs: Vital Signs Temp 98.4 F 03/07/23 08:00 Pulse 92 03/07/23 10:00 Resp 18 03/07/23 10:00 BP 126/98 03/07/23 08:00 Pulse Ox 96 03/07/23 10:00 FiO2 50 03/05/23 08:14 Intake & Output 03/06/23 03/07/23 03/07/23 18:59 06:59 18:59 Intake Total 1098.00 662 Output Total 1100 2500 Balance -2.00 -1838 Intake: IV 190 300 Invasive Line 8 20 Invasive Line 9 50 Piperacillin-Tazobactam 3 100 .375 gm In Sodium Chloride 0.9% 100 ml @ 25 mls/hr IVPB Q8HR [facility] Rx# :[id number] Sodium Chloride 0.9% 1, 120 200 000 ml @ 20 mls/hr IV . Q24H [facility] Rx#:[id number] Intake, IV Titration 350.00 Amount Immune Globulin ( 300.00 Gammagard) 30 gm In Empty Bag 1 bag @ Per Protocol IV .Q0M NR Rx#:[id number] Immune Globulin ( 50 Gammagard) 5 gm In Empty Bag 1 bag @ Titrate IV . Q0M NR Rx#:[id number] Tube Feeding 498 332 Other 60 30 Output: Urine 1100 2500 Other: Voiding Method External Catheter External Catheter External Catheter # Bowel Movements 2 - Exam GENERAL EXAM: 77-year-old male, arousable, a bit more awake today, garbled speech, on room air, comfortable in no apparent distress. HEAD: Normocephalic. EYES: Normal reaction of pupils, equal size. NOSE: Nasogastric tube secured in place. Clear with pink turbinates. THROAT: No erythema or exudates. NECK: No masses, no JVD. CHEST: No chest wall deformity. LUNGS: Equal air entry with few scattered rhonchi. CVS: S1 and S2 normal with no audible murmur, irregular rhythm. ABDOMEN: No hepatosplenomegaly, normal bowel sounds, no guarding or rigidity. SPINE: No scoliosis or deformity SKIN: No rashes CENTRAL NERVOUS SYSTEM: Slow to respond, garbled speech. Tone is normal in all 4 extremities. EXTREMITIES: There is no peripheral edema. No clubbing, no cyanosis. Peripheral pulses are intact. - Labs CBC & Chem 7: 03/06/23 03:54 03/06/23 08:14 Labs: Abnormal Lab Results - Last 24 Hours (Table) 03/06/23 Range/Units 18:35 POC Glucose (mg/dL) 112 H (70-110) mg/dL Assessment and Plan Assessment: Encephalopathy, secondary to the West Nile virus. Initiated on IVIG 3 doses Acute febrile illness and sepsis, no obvious infectious process identified yet, all cultures have been negative so far. Leukocytosis, resolved, possible aspiration pneumonia. Currently on Zosyn, procalcitonin 0.31. Follow-up pro-calcitonin 0.07. Acute rhabdomyolysis, significantly elevated CPK, improving with hydration, CPK is down to 719 Elevated LFTs, ultrasound showed hepatomegaly Elevated troponins, possibly related to supply/demand mismatch Atrial fibrillation with rapid ventricular response requiring Cardizem, heparin drip. Transitioned to oral beta blockers and Eliquis Plan: The patient was seen and evaluated MRI of the brain, labs and medications reviewed Continues on IVIG Being nourished via NG tube Remains stable on room air We will continue to follow I have personally seen and examined the patient, performed the documentation and the assessment and plan as written. Number of minutes spent on the visit: 10.
[2023-03-07] MEDS ORDERED: IMMUNE GLOBULIN (GAMMAGARD) 5 GM in EMPTY BAG 1 BAG IV NR (12:00)
[2023-03-07] MEDS ORDERED: IMMUNE GLOBULIN (GAMMAGARD) 30 GM in EMPTY BAG 1 BAG IV NR (12:00)
--- NOTE | 2023-03-07 12:27 | P.PN ---
Subjective Progress Note Date: 03/07/23 The patient is a 77-year-old male who was admitted to the hospital with a mechanical fall. The patient's had found him down on the ground and it is unknown if he had a syncopal episode. Cardiology was consulted for atrial fibrillation. He was given amiodarone bolus, which was subsequently discontin ued and started on a Cardizem drip where he has remained rate controlled. Hospital course is also a current candidate by septicemia and encephalopathy. Results on CSF fluid shows IgM for West Nile virus elevated at 8.4. The patient is more alert today. He is responding appropriately to questions. His breathing is no longer labored. GENERAL: Well-appearing, well-nourished. No distress. NECK: Supple without JVD or thyromegaly. LUNGS: Breath sounds diminished to auscultation bilaterally. Respiration equal. HEART: Irregular rate and rhythm without murmurs, rubs or gallops. S1 and S2 heard. EXTREMITIES: Normal range of motion, no edema. No clubbing or cyanosis. Peripheral pulses intact and strong. TELEMETRY: A. fib with heart rates in the 70-90s. IMPRESSION: Status post mechanical fall Persistent atrial fibrillation Hypertension Encephalopathy, secondary to West Nile Virus Septicemia Elevated liver enzymes PLAN: Continue supportive treatment Aggressive pulmonary hygiene No further recommendations based on clinical course I am dictating on behalf of Dr Larry Neil's history/physical and assessment/plan. Objective - Vital Signs Vital signs: Vital Signs Temp 98.4 F 03/07/23 08:00 Pulse 92 03/07/23 10:00 Resp 18 03/07/23 10:00 BP 126/98 03/07/23 08:00 Pulse Ox 96 03/07/23 10:00 FiO2 50 03/05/23 08:14 Intake & Output 03/06/23 03/07/23 03/07/23 18:59 06:59 18:59 Intake Total 1098.00 662 Output Total 1100 2500 Balance -2.00 -1838 Weight 99.9 kg Intake: IV 190 300 Invasive Line 8 20 Invasive Line 9 50 Piperacillin-Tazobactam 3 100 .375 gm In Sodium Chloride 0.9% 100 ml @ 25 mls/hr IVPB Q8HR [facility] Rx# :[id number] Sodium Chloride 0.9% 1, 120 200 000 ml @ 20 mls/hr IV . Q24H [facility] Rx#:[id number] Intake, IV Titration 350.00 Amount Immune Globulin ( 300.00 Gammagard) 30 gm In Empty Bag 1 bag @ Per Protocol IV .Q0M NR Rx#:[id number] Immune Globulin ( 50 Gammagard) 5 gm In Empty Bag 1 bag @ Titrate IV . Q0M NR Rx#:[id number] Tube Feeding 498 332 Other 60 30 Output: Urine 1100 2500 Other: Voiding Method External Catheter External Catheter External Catheter # Bowel Movements 2 - Labs CBC & Chem 7: 03/06/23 03:54 03/06/23 08:14 Labs: Abnormal Lab Results - Last 24 Hours (Table) 03/06/23 Range/Units 18:35 POC Glucose (mg/dL) 112 H (70-110) mg/dL
[2023-03-07 12:37] LABS: Glucose,Whole Blood 114 mg/dL (70-110)
--- NOTE | 2023-03-07 12:37 | P.PN ---
Subjective Progress Note Date: 03/07/23 Principal diagnosis: Fever Patient is a 77-year-old male presenting to the hospital after the patient was found to be unresponsive by the , patient has been febrile initial testing negative including LP which was only mildly elevated protein. On today's evaluation that is 03/07/2023, the patient remains to be afebrile, , the patient is breathing comfortably on 3 L nasal cannula oxygen , the patient did respond to his name and answer simple questions appropriately no vomiting no diarrhea or any other changes reported by the nursing staff patient did have white count of 8.6, creatinine 0.69 as of 03/06/2023, the patient west nile IgM came back positive on CSF Objective - Vital Signs Vital signs: Vital Signs Temp 98 F 03/07/23 04:00 Pulse 100 03/07/23 04:00 Resp 24 03/07/23 04:00 BP 118/94 03/07/23 04:00 Pulse Ox 96 03/07/23 04:00 FiO2 50 03/05/23 08:14 Intake & Output 03/06/23 03/07/23 03/07/23 18:59 06:59 18:59 Intake Total 1098.00 662 Output Total 1100 2500 Balance -2.00 -1838 Intake: IV 190 300 Invasive Line 8 20 Invasive Line 9 50 Piperacillin-Tazobactam 3 100 .375 gm In Sodium Chloride 0.9% 100 ml @ 25 mls/hr IVPB Q8HR [facility] Rx# :[id number] Sodium Chloride 0.9% 1, 120 200 000 ml @ 20 mls/hr IV . Q24H [facility] Rx#:[id number] Intake, IV Titration 350.00 Amount Immune Globulin ( 300.00 Gammagard) 30 gm In Empty Bag 1 bag @ Per Protocol IV .Q0M NR Rx#:[id number] Immune Globulin ( 50 Gammagard) 5 gm In Empty Bag 1 bag @ Titrate IV . Q0M NR Rx#:[id number] Tube Feeding 498 332 Other 60 30 Output: Urine 1100 2500 Other: Voiding Method External Catheter External Catheter # Bowel Movements 2 - Exam GENERAL DESCRIPTION: An elderly male lying in bed in no distress RESPIRATORY SYSTEM: Unlabored breathing , coarse breath sounds bilaterally HEART: S1 S2 regular rate and rhythm , ABDOMEN: Soft , no tenderness EXTREMITIES: No edema feet - Labs CBC & Chem 7: 03/06/23 03:54 03/06/23 08:14 Labs: Abnormal Lab Results - Last 24 Hours (Table) 03/06/23 Range/Units 18:35 POC Glucose (mg/dL) 112 H (70-110) mg/dL Assessment and Plan (1) Fever Current Visit: Yes Status: Acute Code(s): R50.9 - FEVER, UNSPECIFIED SNOMED Code(s): 770203079 (2) Pneumonia Current Visit: Yes Status: Acute Code(s): J18.9 - PNEUMONIA, UNSPECIFIED ORGANISM SNOMED Code(s): 522127297 (3) West Nile Virus infection Current Visit: Yes Status: Acute Code(s): A92.30 - WEST NILE VIRUS INFECTION, UNSPECIFIED SNOMED Code(s): 320172708 Plan: 1patient with SIRS in this patient with a fever elevated white count tachycardia with significant mental status changes high clinical suspicious for possible encephalitis/meningitis ,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, the treatment is mostly supportive this has been discussed in detail with the daughter at the bedside who asked for antiviral treatment, currently no studies support the use of ribavirin or acyclovir, steroids is also questionable, there is some role for immunoglobulin infusion which has been started and the patient continue to finish his treatment 2 patient also have a congested cough and question of possible aspiration pneumonitis, patient to continue with Zosyn and monitor clinical course closely Son and at the bedside questions were answered Dictation was produced using [employer] dictation software. please excuse any grammatical, word or spelling errors. Time with Patient: Less than 30
--- NOTE | 2023-03-07 13:10 | P.PN ---
Subjective Progress Note Date: 03/07/23 Altered mental status This is 77-year-old white male with no significant past medical history came in and septic shock and questionable pneumonia. He was significant tachycardia with hypotension and was placed in ICU for observation. He continues to have significant mental status changes. Question febrile seizure element. Temperature is improved IV Tylenol has been administered. Appreciate multiple consultants input. 03/07. Dr. hannah took over care from Dr. Holman. Family at the bedside. Patient currently alert to self. No acute issues overnight. Last blood work done showed WBC 8.6, hemoglobin 12.7, sodium 140, potassium 3.9, BUN 22, creatinine 0.69 Patient had 2 slightly loose bowel movement this morning REVIEW OF SYSTEMS: Unable to obtain detailed review of system PHYSICAL EXAMINATION: GENERAL: The patient is alert to self, not in any acute distress. Well dev eloped, well nourished. HEENT: Pupils are round and equally reacting to light. EOMI. No scleral icterus. No conjunctival pallor. Normocephalic, atraumatic. No pharyngeal erythema. No thyromegaly. CARDIOVASCULAR: S1 and S2 present. No murmurs, rubs, or gallops. PULMONARY: Chest is clear to auscultation, no wheezing or crackles. ABDOMEN: Soft, nontender, nondistended, normoactive bowel sounds. No palpable organomegaly. MUSCULOSKELETAL: No joint swelling or deformity. EXTREMITIES: No cyanosis, clubbing, or pedal edema. NEUROLOGICAL: Gross neurological examination did not reveal any focal deficits. SKIN: No rashes. Assessment and plan Acute infectious encephalopathy Pneumonia Septic shock West Nile fever Leukocytosis Acute rhabdomyolysis Elevated LFTs Elevated troponins Atrial fibrillation with rapid ventricular response Monitor vital signs Monitor CBC Monitor CMP Continue telemetry monitoring Continue IVIG per ID Continue Lopressor plus Eliquis Continue IV Zosyn ID following Critical care following Cardiology following Continue tube feeding Labs and medication were reviewed.. Continue same treatment. Continue with symptomatic treatment. Resume home medication. Monitor labs and vitals. DVT and GI prophylaxis. Further recommendations as per clinical course of the patient Dictation was produced using [employer] dictation software. please excuse any grammatical, word or spelling errors. Objective - Vital Signs Vital signs: Vital Signs Temp 98.4 F 03/07/23 12:00 Pulse 69 03/07/23 12:00 Resp 20 03/07/23 12:00 BP 119/84 03/07/23 12:00 Pulse Ox 96 03/07/23 12:00 FiO2 50 03/05/23 08:14 Intake & Output 03/06/23 03/07/23 03/07/23 18:59 06:59 18:59 Intake Total 1098.00 662 Output Total 1100 2500 Balance -2.00 -1838 Weight 99.9 kg Intake: IV 190 300 Invasive Line 8 20 Invasive Line 9 50 Piperacillin-Tazobactam 3 100 .375 gm In Sodium Chloride 0.9% 100 ml @ 25 mls/hr IVPB Q8HR [facility] Rx# :[id number] Sodium Chloride 0.9% 1, 120 200 000 ml @ 20 mls/hr IV . Q24H [facility] Rx#:[id number] Intake, IV Titration 350.00 Amount Immune Globulin ( 300.00 Gammagard) 30 gm In Empty Bag 1 bag @ Per Protocol IV .Q0M NR Rx#:[id number] Immune Globulin ( 50 Gammagard) 5 gm In Empty Bag 1 bag @ Titrate IV . Q0M NR Rx#:[id number] Tube Feeding 498 332 Other 60 30 Output: Urine 1100 2500 Other: Voiding Method External Catheter External Catheter External Catheter # Bowel Movements 2 - Labs CBC & Chem 7: 03/06/23 03:54 03/06/23 08:14 Labs: Abnormal Lab Results - Last 24 Hours (Table) 03/06/23 03/07/23 Range/Units 18:35 12:36 POC Glucose (mg/dL) 112 H 114 H (70-110) mg/dL
--- NOTE | 2023-03-07 14:12 | P.PN ---
Subjective Progress Note Date: 03/07/23 I am following-up with patient and he is about the same. Objective - Vital Signs Vital signs: Vital Signs Temp 98.4 F 03/07/23 12:00 Pulse 69 03/07/23 12:00 Resp 20 03/07/23 12:00 BP 119/84 03/07/23 12:00 Pulse Ox 96 03/07/23 12:00 FiO2 50 03/05/23 08:14 Intake & Output 03/06/23 03/07/23 03/07/23 18:59 06:59 18:59 Intake Total 1098.00 662 Output Total 1100 2500 Balance -2.00 -1838 Weight 99.9 kg Intake: IV 190 300 Invasive Line 8 20 Invasive Line 9 50 Piperacillin-Tazobactam 3 100 .375 gm In Sodium Chloride 0.9% 100 ml @ 25 mls/hr IVPB Q8HR [facility] Rx# :[id number] Sodium Chloride 0.9% 1, 120 200 000 ml @ 20 mls/hr IV . Q24H [facility] Rx#:[id number] Intake, IV Titration 350.00 Amount Immune Globulin ( 300.00 Gammagard) 30 gm In Empty Bag 1 bag @ Per Protocol IV .Q0M NR Rx#:[id number] Immune Globulin ( 50 Gammagard) 5 gm In Empty Bag 1 bag @ Titrate IV . Q0M NR Rx#:[id number] Tube Feeding 498 332 Other 60 30 Output: Urine 1100 2500 Other: Voiding Method External Catheter External Catheter External Catheter # Bowel Movements 2 - Exam General: The patient is lying in bed and does not appear in acute distress. Neuro: Limited because of his condition. Patient is mild drowsy but is awakeable to verbal stimuli. He is oriented to self. He followed very few minimal simple commands such as showing a thumbs up and wiggling the toes, opening and closing eyes. Right pupil is about 3 mm and the left is about 2mm and reactive to light. No facial weakness. Motor: Strength is hard to assess because of his significant pain. Upon lifting his arms above he was in pain. He'll squeeze my hands equally bilaterally. He'll wiggle both toes but he would not raise bilateral legs above gravity. 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 Per Dr. Mills had nuchal and generalized rigidity and some tremulousness. CSF is negative for meningoencephalitis---His fever and leukocytosis has improved but he continues to be slow responding with generalized weakness * Acute metabolic encephalopathy likely encephalitis and from severe pneumonia * Generalized weakness due to above and component of possible ?cervical myelopathy of MRI C-spine (has cord edema at C3-C4 on FLAIR) * SIRS, pneumonia * Acute rhabdomyolysis, resolving * Elevated cardiac enzymes * New onset atrial fibrillation currently on heparin IV drip. * History of bilateral shoulder pain/arthritis * History of bilateral knee replacement. Plan: * CT head was performed 02/28/2023 revealed no acute intracranial process. N onspecific white matter changes, likely secondary to chronic small vessel ischemic disease. I personally reviewed CT head, agree with the findings. * MRI Brain w/ and w/o: Was reported as no evidence for encephalitis. No evidence of intracranial mass, acute/subacute infarct or abnormal enhancement. Nonspecific white matter changes, likely related to small vessel ischemic disease. * Initial EEG revealed background slowing and disorganization of mild degree suggestive of encephalopathy. There is no epileptiform activity. * EEG performed on 03/01/23 was abnormal due to background slowing of moderate degree consistent with encephalopathy. No epileptiform activity was seen. When compared to the initial EEG from 02/24/2023, the background seems to have gotten worse. * Chest x-ray performed today revealed worsening bilateral multifocal opacities consistent with worsening edema and/or multifocal acute infiltrates. Pulmonary, ID and cardiology on on board. * CSF performed 02/24/2023 was colorless and clear. CSF glucose 52, protein 86 (12-60). WBC count 4, RBCs 358. Comprehensive viral detection negative. 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 For west nile it is usually supportive care. * Patient is currently on Zosyn for possible pneumonia. I.D. is on board. * He was started on Keppra 750 mg twice a day for now by Dr. Mills and he recommended to start tapering off Keppra, when mentation improves. If by tomorrow mentation continue to improve will slowly titrate it down. * MRI Cervical spine w/ and w/o: Is reported as mild to moderate multilevel degenerative disc disease with scattered facet and uncovertebral joint. Appendectomy. Degenerative grade 1 anterolisthesis C7 to T1. Moderate focal signal canal stenosis at C3-C4 with abutment and flattening of both the dorsal and ventral cord. Sagittal FLAIR sequence suggest some focal cord edema here. Correlate for myelopathic symptoms. The axial images are essentially nondiagnostic due to patient motion. Unable to adequately assess then neuroforamen. As a result I consulted the orthopedic surgery team and they evaluated patient and no surgical intervention. * CT chest, abdomen and pelvis: It is reported as there is thickening enlargement of the right psoas musculature and iliacus musculature with het erogeneity seen. Finding are likely reflective of retroperitoneal hemorrhage however on image 100 there is small focus of decreased attenuation measuring 1.3 cm with possible small focus of air. Small abscess is not excluded. Basilar pleural effusion and compressive atelectasis with scattered smith undglass infiltrates. We'll defer further management to the primary team and I.D. team. Consider stopping anticoagulation and possible general surgery team consultation. * Cardiology on board for new onset atrial fibrillation. Patient currently on heparin drip. * CK has drastically improved. * Discussed with ICU attending. The plan is discussed with patient's nurse. Will continue to follow sporadically. Dr. Mills will start neurology service on 03/09/2023 A.M. Time with Patient: Less than 30
[2023-03-07 17:58] LABS: Glucose,Whole Blood 100 mg/dL (70-110)
[2023-03-08 00:08] LABS: Glucose,Whole Blood 129 mg/dL (70-110)
[2023-03-08] MEDS: PIPERACILLIN-TAZOBACTAM 3.375 GM in SODIUM CHLORIDE 0.9% 100 ML IVPB SCH ×2 (00:38→09:43)
[2023-03-08 06:15] LABS: Glucose,Whole Blood 119 mg/dL (70-110)
[2023-03-08 08:27] LABS: HCT 41.1 % (39.0-53.0); HGB 13.9 gm/dL (13.0-17.5); MCH 33.4 pg (25.0-35.0); MCHC 33.9 g/dL (31.0-37.0); MCV 98.5 fL (80.0-100.0); Mean Platelet Volume 8.3; Platelet Count 212 k/uL (150-450); RBC 4.18 m/uL (4.30-5.90); RDW 12.9 % (11.5-15.5); WBC 11.9 k/uL (3.8-10.6)
[2023-03-08 08:52] LABS: ALT 85 U/L (4-49); AST 68 U/L (17-59); African American GFR (CKD) >90 (>60 ml/min/1.73 sqM); Albumin 3.3 g/dL (3.5-5.0); Alkaline Phosphatase 49 U/L (38-126); Anion Gap 9 mmol/L; Blood Urea Nitrogen 27 mg/dL (9-20); Calcium 8.5 mg/dL (8.4-10.2); Carbon Dioxide 22 mmol/L (22-30); Chloride 107 mmol/L (98-107); Glucose 108 mg/dL (74-99); Non-African American GFR(CKD) >90 (>60 ml/min/1.73 sqM); Sodium 138 mmol/L (137-145); Total Bilirubin 1.7 mg/dL (0.2-1.3); Total Protein 7.9 g/dL (6.3-8.2)
[2023-03-08 08:54] LABS: Potassium 5.2 mmol/L (3.5-5.1)
[2023-03-08] MEDS: APIXABAN 5 MG TAB PO SCH ×2 (09:41→19:51)
[2023-03-08] MEDS: CHOLECALCIFEROL 125 MCG (5000 IU) TABLET PO SCH (09:42)
[2023-03-08] MEDS: LACTOBACILLUS ACIDOPHILUS/PECT 1 EACH CAPSULE PO SCH ×3 (09:42→19:50)
[2023-03-08] MEDS: ASCORBIC ACID 500 MG TAB PO SCH (09:42)
[2023-03-08] MEDS: LOSARTAN 25 MG TAB PO SCH (09:42)
[2023-03-08] MEDS: levETIRAcetam IV 500 MG/5 ML VIAL IVP SCH ×2 (09:42→19:50)
[2023-03-08] MEDS: METOPROLOL TARTRATE 50 MG TAB PO SCH ×3 (09:42→19:51)
[2023-03-08] MEDS: PANTOPRAZOLE 40 MG/10 ML VIAL IVP SCH (09:42)
[2023-03-08] MEDS: ZINC SULFATE 220 MG CAP PO SCH (09:42)
[2023-03-08 11:39] LABS: Glucose,Whole Blood 134 mg/dL (70-110)
--- NOTE | 2023-03-08 12:04 | P.PN ---
Subjective Progress Note Date: 03/08/23 Altered mental status This is 77-year-old white male with no significant past medical history came in and septic shock and questionable pneumonia. He was significant tachycardia with hypotension and was placed in ICU for observation. He continues to have significant mental status changes. Question febrile seizure element. Temperature is improved IV Tylenol has been administered. Appreciate multiple consultants input. 03/07. Dr. hannah took over care from Dr. Holman. Family at the bedside. Patient currently alert to self. No acute issues overnight. Last blood work done showed WBC 8.6, hemoglobin 12.7, sodium 140, potassium 3.9, BUN 22, creatinine 0.69 Patient had 2 slightly loose bowel movement this morning 03/08. Patient seen and examined. Blood work this morning showed WBC 7.9, hemoglobin 13.9, sodium 130, potassium 5.2,. Patient continues to be afebrile REVIEW OF SYSTEMS: Unable to obtain detailed review of system PHYSICAL EXAMINATION: GENERAL: The patient is alert to self, not in any acute distress. Well developed, well nourished. HEENT: Pupils are round and equally reacting to light. EOMI. No scleral icterus. No conjunctival pallor. Normocephalic, atraumatic. No pharyngeal erythema. No thyromegaly. CARDIOVASCULAR: S1 and S2 present. No murmurs, rubs, or gallops. PULMONARY: Chest is clear to auscultation, no wheezing or crackles. ABDOMEN: Soft, nontender, nondistended, normoactive bowel sounds. No palpable organomegaly. MUSCULOSKELETAL: No joint swelling or deformity. EXTREMITIES: No cyanosis, clubbing, or pedal edema. NEUROLOGICAL: Gross neurological examination did not reveal any focal deficits. SKIN: No rashes. Assessment and plan Acute infectious encephalopathy Pneumonia Septic shock West Nile fever Leukocytosis Acute rhabdomyolysis Elevated LFTs Elevated troponins Atrial fibrillation with rapid ventricular response Monitor vital signs Monitor CBC Monitor CMP Continue telemetry monitoring Continue IVIG per ID Continue Lopressor plus Eliquis Continue tube feeding Continue IV Zosyn ID following Critical care following Cardiology following Neurology following, EEG performed on 03/01/23 was abnormal due to background slowing of moderate degree consistent with encephalopathy. No epileptiform activity was seen. He was started on Keppra 750 mg twice a day for now by Dr. Mills and he recommended to start tapering off Keppra, when mentation improves. If by tomorrow mentation continue to improve will slowly titrate it down. Labs and medication were reviewed.. Continue same treatment. Continue with symptomatic treatment. Resume home medication. Monitor labs and vitals. DVT and GI prophylaxis. Further recommendations as per clinical course of the patient Dictation was produced using [employer] dictation software. please excuse any grammatical, word or spelling errors. Objective - Vital Signs Vital signs: Vital Signs Temp 98.5 F 03/08/23 04:00 Pulse 81 03/08/23 04:00 Resp 16 03/08/23 04:00 BP 150/86 03/08/23 04:00 Pulse Ox 94 L 03/08/23 04:00 FiO2 50 03/05/23 08:14 Intake & Output 03/07/23 03/08/23 03/08/23 18:59 06:59 18:59 Intake Total 420 0 Output Total 2800 2400 900 Balance -2380 -2400 -900 Weight 99.9 kg Intake: IV 420 Piperacillin-Tazobactam 3 200 .375 gm In Sodium Chloride 0.9% 100 ml @ 25 mls/hr IVPB Q8HR [facility] Rx# :[id number] Sodium Chloride 0.9% 1, 220 000 ml @ 20 mls/hr IV . Q24H [facility] Rx#:[id number] Oral 0 Output: Urine 2800 2400 900 Other: Voiding Method External Catheter External Catheter # Bowel Movements 2 - Labs CBC & Chem 7: 03/08/23 08:03 03/08/23 08:03 Labs: Abnormal Lab Results - Last 24 Hours (Table) 03/07/23 03/08/23 03/08/23 Range/Units 12:36 00:06 06:13 WBC (3.8-10.6) k/uL RBC (4.30-5.90) m/uL Potassium (3.5-5.1) mmol/L BUN (9-20) mg/dL Glucose (74-99) mg/dL POC Glucose (mg/dL) 114 H 129 H 119 H (70-110) mg/dL Total Bilirubin (0.2-1.3) mg/dL AST (17-59) U/L ALT (4-49) U/L Albumin (3.5-5.0) g/dL 03/08/23 03/08/23 Range/Units 08:03 08:03 WBC 11.9 H (3.8-10.6) k/uL RBC 4.18 L (4.30-5.90) m/uL Potassium 5.2 H (3.5-5.1) mmol/L BUN 27 H (9-20) mg/dL Glucose 108 H (74-99) mg/dL POC Glucose (mg/dL) (70-110) mg/dL Total Bilirubin 1.7 H (0.2-1.3) mg/dL AST 68 H (17-59) U/L ALT 85 H (4-49) U/L Albumin 3.3 L (3.5-5.0) g/dL
--- NOTE | 2023-03-08 13:14 | P.PN ---
Subjective Progress Note Date: 03/08/23 Principal diagnosis: Encephalopathy. The patient is seen today 03/04/2023 in follow-up in the intensive care unit. Currently maintaining good O2 saturations in the 90s on 3 L/m per nasal cannula. Remains on Cardizem drip at 5 mg per hour. Normal saline at 20 ML's per hour. He is being nourished via nasogastric tube with vital AF at 75 ML's per hour with a goal of 83 ML's per hour. He did utilize BiPAP last night 19/01 and 50% FiO2. He had some episodes of atrial fibrillation with RVR again. He also had an episode of respiratory distress. Arterial blood gases revealed a pO2 of 225, pCO2 40 and a pH of 7.48. Chest x-ray did not reveal any acute changes. He remains slow to respond. His speech remains quite garbled. Currently in atrial fibrillation with a controlled ventricular rate. Sodium 140. Potassium 3.5. Bicarb 30. BUN 19. Creatinine 0.66. AST 84. ALT 92. The patient is seen today 03/05/2023 in follow-up in the intensive care unit. Neurologically remains about the same. Arousable, garbled speech. Afebrile. Maintaining good O2 saturations in the 90s on room air. Blood cultures, urine culture, cerebrospinal fluid cultures and repeat blood cultures have all been negative. 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 White count 10.0. Hemoglobin 12.9. Platelets 173. Sodium 139. Potassium 4.1. Bicarb 30. BUN 21. Creatinine 0.83. Glucose 100. Pro-calcitonin 0.07. He is currently on Zosyn per ID service. Normal saline at KVO. He is being nourished via nasogastric tube with vital AF at 83 ML's per hour which is goal. He remains in atrial fibrillation. He is on beta blockers and anticoagulated with Eliquis. The patient is seen today 03/06/2023 in follow-up in the intensive care unit. He is arousable. Able to state his name. Continues with garbled speech. Somewhat slow to respond. He is maintaining good O2 saturations in the 90s on room air. He has normal saline at 20 ML's per hour. Mean #nourished via n asogastric tube with vital AF at 83 ML's per hour which is goal. He was initiated on IVIG yesterday and the plan is for a total of 3 doses. His IgG2 was 172. IgE 338. He was also initiated on vitamins and probiotics. He is going for a MRI of the C-spine today per neurology. White count 8.6. He moglobin 12.7. Sodium 140. Potassium 4.2. Bicarb 26. BUN 22. Creatinine 0.69. Glucose 121. AST 59. ALT 92. Albumin 2.7. Currently in sinus rhythm. He is anticoagulated with Eliquis. Antibiotics in the form of Zosyn. The patient is seen today 03/07/2023 in follow-up in the intensive care unit. He is a bit more alert today. Still with garbled speech. Still waxing and waning. He is maintaining good O2 saturations in the upper 90s on room air. He's currently afebrile. Hemodynamically stable. Urine and blood, cerebrospinal fluid and follow up blood cultures have all revealed no growth. Testing positive for West Nile. 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 Moderate focal spinal canal stenosis. Continues to receive IVIG. [place] on Zosyn. Remains on vitamin supplements. Anticoagulated with Eliquis. Nasogastric tube remains in place. He is on vital AF at 83 ML's per hour which is goal. Progress note dated 03/08/2023. 77-year-old male that we have been seen in the intensive care unit, the entire week. The patient did test positive for West Nile virus. The patient's primary issue was that of encephalopathy, which has been slowly improving. Currently, the patient is seen in room 354. He is getting vital high protein at 83 mL an hour, via an NG tube. The patient not on any supplemental oxygen, and is not receiving any additional fluids. Zosyn is discontinued. The patient did receive 3 doses of IVIG, as per infectious diseases. White count 11.9, hemoglobin 13.9, hematocrit 41.1, with a normal platelet count. Sodium 138, potassium 5.2, chlorides 107, CO2 22, BUN 27 and creatinine 0.70. Objective - Vital Signs Vital signs: Vital Signs Temp 97.2 F L 03/08/23 12:00 Pulse 77 03/08/23 12:00 Resp 18 03/08/23 12:00 BP 117/86 03/08/23 12:00 Pulse Ox 96 03/08/23 12:00 FiO2 50 03/05/23 08:14 Intake & Output 03/07/23 03/08/23 03/08/23 18:59 06:59 18:59 Intake Total 420 0 Output Total 2800 2400 900 Balance -2380 -2400 -900 Weight 99.9 kg Intake: IV 420 Piperacillin-Tazobactam 3 200 .375 gm In Sodium Chloride 0.9% 100 ml @ 25 mls/hr IVPB Q8HR [facility] Rx# :[id number] Sodium Chloride 0.9% 1, 220 000 ml @ 20 mls/hr IV . Q24H [facility] Rx#:[id number] Oral 0 Output: Urine 2800 2400 900 Other: Voiding Method External Catheter External Catheter External Catheter # Bowel Movements 2 - Exam No acute distress, oriented, with a very flat affect. The patient is lethargic/somnolent, and does arouse. NG tube is noted. HEENT examination is grossly unremarkable. Mucous membranes are dry. Neck supple. Full range of motion. No adenopathy thyromegaly or neck vein distention. Cardiovascular examination reveals regular rhythm rate. S1-S2 normal. No S3 or S4. No discernible murmur noted. Heart rate is 77 bpm. Lungs reveal clear breath sounds. Breath sounds are equal bilaterally. No adventitious lung sounds including wheezes rhonchi or crackles. Room air saturation is 96%. Abdomen soft bowel sounds are heard. No masses or tenderness. Extremities are intact. No cyanosis clubbing or edema. Skin is without rash or lesion. Neurologic examination is unchanged, to slightly improved. - Labs CBC & Chem 7: 03/08/23 08:03 03/08/23 08:03 Labs: Abnormal Lab Results - Last 24 Hours (Table) 03/08/23 03/08/23 03/08/23 Range/Units 00:06 06:13 08:03 WBC 11.9 H (3.8-10.6) k/uL RBC 4.18 L (4.30-5.90) m/uL Potassium (3.5-5.1) mmol/L BUN (9-20) mg/dL Glucose (74-99) mg/dL POC Glucose (mg/dL) 129 H 119 H (70-110) mg/dL Total Bilirubin (0.2-1.3) mg/dL AST (17-59) U/L ALT (4-49) U/L Albumin (3.5-5.0) g/dL 03/08/23 03/08/23 Range/Units 08:03 11:37 WBC (3.8-10.6) k/uL RBC (4.30-5.90) m/uL Potassium 5.2 H (3.5-5.1) mmol/L BUN 27 H (9-20) mg/dL Glucose 108 H (74-99) mg/dL POC Glucose (mg/dL) 134 H (70-110) mg/dL Total Bilirubin 1.7 H (0.2-1.3) mg/dL AST 68 H (17-59) U/L ALT 85 H (4-49) U/L Albumin 3.3 L (3.5-5.0) g/dL Assessment and Plan Assessment: Encephalopathy, secondary to the West Nile virus. Initiated on IVIG 3 doses. Acute febrile illness and sepsis, no obvious infectious process identified yet, all cultures have been negative so far. Leukocytosis, resolved, possible aspiration pneumonia. Patient has completed Zosyn therapy. Acute rhabdomyolysis, significantly elevated CPK, improving with hydration, CPK is down to 719. Elevated LFTs, ultrasound showed hepatomegaly. Elevated troponins, possibly related to supply/demand mismatch. Atrial fibrillation with rapid ventricular response. Plan: Plan dated 03/11/2023. The patient was transferred out of the intensive care unit yesterday. He is seen today in room 354. NG tube still in place, and the patient is receiving tube feedings with vital high protein at 83 mL an hour. The patient is not requiring any supplemental oxygen. This no additional IV fluids. Zosyn is discontinued. The patient received 3 doses of IVIG as per infectious diseases. Along the way. The patient's encephalopathy, secondary to West Nile virus, is slowly improving. Time with Patient: Less than 30
[2023-03-08] MEDS: SODIUM CHLORIDE 0.9% 1,000 ML IV SCH (16:33)
[2023-03-08 17:52] LABS: Glucose,Whole Blood 118 mg/dL (70-110)
[2023-03-08] MEDS: ACETAMINOPHEN TAB 325 MG TAB PO PRN (19:51)
[2023-03-09 00:09] LABS: Glucose,Whole Blood 104 mg/dL (70-110)
[2023-03-09 05:56] LABS: Glucose,Whole Blood 112 mg/dL (70-110)
[2023-03-09 08:05] LABS: HCT 42.8 % (39.0-53.0); HGB 14.5 gm/dL (13.0-17.5); MCH 33.2 pg (25.0-35.0); MCHC 33.8 g/dL (31.0-37.0); MCV 98.3 fL (80.0-100.0); Mean Platelet Volume 8.6; Platelet Count 221 k/uL (150-450); RBC 4.35 m/uL (4.30-5.90); WBC 13.5 k/uL (3.8-10.6)
[2023-03-09 08:16] LABS: ALT 80 U/L (4-49); AST 49 U/L (17-59); African American GFR (CKD) >90 (>60 ml/min/1.73 sqM); Albumin 3.4 g/dL (3.5-5.0); Alkaline Phosphatase 49 U/L (38-126); Anion Gap 12 mmol/L; Blood Urea Nitrogen 30 mg/dL (9-20); Calcium 8.8 mg/dL (8.4-10.2); Carbon Dioxide 21 mmol/L (22-30); Chloride 105 mmol/L (98-107); Glucose 96 mg/dL (74-99); Non-African American GFR(CKD) 89 (>60 ml/min/1.73 sqM); Sodium 138 mmol/L (137-145); Total Bilirubin 1.5 mg/dL (0.2-1.3); Total Protein 7.8 g/dL (6.3-8.2)
--- NOTE | 2023-03-09 08:36 | P.PN ---
Subjective Progress Note Date: 03/09/23 Principal diagnosis: Altered mental status This is a 77-year-old male who presented to the ER with concerns of altered mental status. His had found him on the ground prior to coming to the ER. He was placed in ICU, has had tachycardia with hypotension. He also continues t o have intermittent fevers. Workup for bacterial meningitis was negative. EEG was negative for seizure activity. Further workup still in progress. Patient still has a white count today. He is seen laying in bed in the ICU this morning, in no acute distress. 03/02/2023 Patient is seen and evaluated sitting up in bed in ICU. Over the weekend patient developed atrial fibrillation with RVR. He remains on a heparin drip. Patient also began to be more alert over the weekend, responds to verbal commands, does have garbled speech. Neurology has ordered an MRI of the brain. 03/05/2023 Patient is seen and evaluated laying in bed in ICU. He continues to be not very arousable, not alert today. Speech remains garbled. Labs have come back showing West Nile virus, infectious disease already consulted, await their recommendations. 03/09/2023 Patient is seen and evaluated on step-down unit. He did receive 3 doses of IVIG. NG tube and feeding still in place. Speech still garbled, he is arousable though and able to follow simple commands Objective - Vital Signs Vital signs: Vital Signs Temp 97.6 F 03/09/23 04:00 Pulse 65 03/09/23 04:00 Resp 16 03/09/23 04:00 BP 123/73 03/09/23 04:00 Pulse Ox 96 03/09/23 04:00 FiO2 50 03/05/23 08:14 Intake & Output 03/08/23 03/09/23 03/09/23 18:59 06:59 18:59 Intake Total 240 Output Total 3000 900 Balance -3000 -660 Intake: Oral 240 Output: Urine 3000 900 Other: Voiding Method External Catheter External Catheter - Constitutional General appearance: Present: cooperative, no acute distress - EENT Eyes: Present: PERRLA - Neck Neck: Present: normal ROM. Absent: lymphadenopathy, rigidity - Respiratory Respiratory: bilateral: CTA - Cardiovascular Rhythm: regular Heart sounds: normal: S1, S2 - Gastrointestinal General gastrointestinal: Present: soft. Absent: tenderness - Integumentary Integumentary: Present: normal, normal turgor - Musculoskeletal Musculoskeletal: Present: generalized weakness - Psychiatric Psychiatric Comment(s): Alert to person and place - Labs CBC & Chem 7: 03/09/23 07:19 03/09/23 07:19 Labs: Abnormal Lab Results - Last 24 Hours (Table) 03/08/23 03/08/23 03/08/23 Range/Units 08:03 11:37 17:51 WBC (3.8-10.6) k/uL Potassium 5.2 H (3.5-5.1) mmol/L Carbon Dioxide (22-30) mmol/L BUN 27 H (9-20) mg/dL Glucose 108 H (74-99) mg/dL POC Glucose (mg/dL) 134 H 118 H (70-110) mg/dL Total Bilirubin 1.7 H (0.2-1.3) mg/dL AST 68 H (17-59) U/L ALT 85 H (4-49) U/L Albumin 3.3 L (3.5-5.0) g/dL 03/09/23 03/09/23 03/09/23 Range/Units 05:54 07:19 07:19 WBC 13.5 H (3.8-10.6) k/uL Potassium (3.5-5.1) mmol/L Carbon Dioxide 21 L (22-30) mmol/L BUN 30 H (9-20) mg/dL Glucose (74-99) mg/dL POC Glucose (mg/dL) 112 H (70-110) mg/dL Total Bilirubin 1.5 H (0.2-1.3) mg/dL AST (17-59) U/L ALT 80 H (4-49) U/L Albumin 3.4 L (3.5-5.0) g/dL Assessment and Plan (1) Altered mental status Current Visit: Yes Status: Acute Code(s): R41.82 - ALTERED MENTAL STATUS, UNSPECIFIED SNOMED Code(s): 998688349 (2) Pneumonia Current Visit: Yes Status: Acute Code(s): J18.9 - PNEUMONIA, UNSPECIFIED ORGANISM SNOMED Code(s): 176590943 (3) Septic shock Current Visit: Yes Status: Acute Code(s): A41.9 - SEPSIS, UNSPECIFIED ORGANISM; R65.21 - SEVERE SEPSIS WITH SEPTIC SHOCK SNOMED Code(s): 60826508 (4) Atrial fibrillation Current Visit: Yes Status: Acute Code(s): I48.91 - UNSPECIFIED ATRIAL FIBRILLATION SNOMED Code(s): 19897944 (5) West Nile Virus infection Current Visit: Yes Status: Acute Code(s): A92.30 - WEST NILE VIRUS INFECTION, UNSPECIFIED SNOMED Code(s): 977756534 Plan: CBC and CMP in the morning. Continue tube feedings Patient seen and evaluated by nurse practitioner, physician in agreement with plan
--- NOTE | 2023-03-09 09:56 | P.PN ---
Subjective HISTORY OF PRESENT ILLNESS: This is a 77-year-old male who is admitted to the hospital secondary to mechanical fall. The patient was also found to be positive for West Nile virus. Patient is currently encephalopathic. He is being followed by infectious disease. Patient is resting in bed comfortably. He is unable to answer questions. Telemetry reveals atrial fibrillation with a heart rate between 16[address]. Echocardiogram completed revealing preserved LV systolic function with ejection fraction 55-60%. PHYSICAL EXAM: VITAL SIGNS: Reviewed. GENERAL: Well-developed in no acute distress. NECK: Supple. No JVD or thyromegaly LUNGS: Respirations even and unlabored. Lungs essentially clear to auscultation bilaterally. HEART: Irregular rate and rhythm. S1 and S2 heard. EXTREMITIES: Normal range of motion. No clubbing or cyanosis. Peripheral pulses intact. 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 Please call with questions or concerns. Nurse practitioner note has been reviewed by physician. Signing provider agrees with the documented findings, assessment, and plan of care. Objective - Vital Signs Vital signs: Vital Signs Temp 97.6 F 03/09/23 04:00 Pulse 65 03/09/23 04:00 Resp 16 03/09/23 04:00 BP 123/73 03/09/23 04:00 Pulse Ox 96 03/09/23 04:00 FiO2 50 03/05/23 08:14 Intake & Output 03/08/23 03/09/23 03/09/23 18:59 06:59 18:59 Intake Total 240 Output Total 3000 900 Balance -3000 -660 Intake: Oral 240 Output: Urine 3000 900 Other: Voiding Method External Catheter External Catheter - Labs CBC & Chem 7: 03/09/23 07:19 03/09/23 07:19 Labs: Abnormal Lab Results - Last 24 Hours (Table) 03/08/23 03/08/23 03/09/23 Range/Units 11:37 17:51 05:54 WBC (3.8-10.6) k/uL Carbon Dioxide (22-30) mmol/L BUN (9-20) mg/dL POC Glucose (mg/dL) 134 H 118 H 112 H (70-110) mg/dL Total Bilirubin (0.2-1.3) mg/dL ALT (4-49) U/L Albumin (3.5-5.0) g/dL 03/09/23 03/09/23 Range/Units 07:19 07:19 WBC 13.5 H (3.8-10.6) k/uL Carbon Dioxide 21 L (22-30) mmol/L BUN 30 H (9-20) mg/dL POC Glucose (mg/dL) (70-110) mg/dL Total Bilirubin 1.5 H (0.2-1.3) mg/dL ALT 80 H (4-49) U/L Albumin 3.4 L (3.5-5.0) g/dL
[2023-03-09] MEDS: ZINC SULFATE 220 MG CAP PO SCH (09:58)
[2023-03-09] MEDS: DILTIAZEM ORAL 30 MG TAB PO SCH ×3 (09:58→20:47)
[2023-03-09] MEDS: ASCORBIC ACID 500 MG TAB PO SCH (09:58)
[2023-03-09] MEDS: METOPROLOL TARTRATE 50 MG TAB PO SCH ×3 (09:58→20:47)
[2023-03-09] MEDS: LOSARTAN 25 MG TAB PO SCH (09:58)
[2023-03-09] MEDS: CHOLECALCIFEROL 125 MCG (5000 IU) TABLET PO SCH (09:58)
[2023-03-09] MEDS: APIXABAN 5 MG TAB PO SCH ×2 (09:58→20:46)
[2023-03-09 11:56] LABS: Glucose,Whole Blood 124 mg/dL (70-110)
[2023-03-09] MEDS: levETIRAcetam IV 500 MG/5 ML VIAL IVP SCH ×2 (12:47→20:42)
[2023-03-09] MEDS: LACTOBACILLUS ACIDOPHILUS/PECT 1 EACH CAPSULE PO SCH ×2 (12:47→17:22)
[2023-03-09] MEDS: PANTOPRAZOLE 40 MG/10 ML VIAL IVP SCH (12:48)
--- NOTE | 2023-03-09 13:10 | P.PN ---
Subjective Progress Note Date: 03/09/23 The patient is seen today 03/04/2023 in follow-up in the intensive care unit. Currently maintaining good O2 saturations in the 90s on 3 L/m per nasal cannula. Remains on Cardizem drip at 5 mg per hour. Normal saline at 20 ML's per hour. He is being nourished via nasogastric tube with vital AF at 75 ML's per hour with a goal of 83 ML's per hour. He did utilize BiPAP last night 19/01 and 50% FiO2. He had some episodes of atrial fibrillation with RVR again. He also had an episode of respiratory distress. Arterial blood gases revealed a pO2 of 225, pCO2 40 and a pH of 7.48. Chest x-ray did not reveal any acute changes. He remains slow to respond. His speech remains quite garbled. Currently in atrial fibrillation with a controlled ventricular rate. Sodium 140. Potassium 3.5. Bicarb 30. BUN 19. Creatinine 0.66. AST 84. ALT 92. The patient is seen today 03/05/2023 in follow-up in the intensive care unit. Neurologically remains about the same. Arousable, garbled speech. Afebrile. Maintaining good O2 saturations in the 90s on room air. Blood cultures, urine culture, cerebrospinal fluid cultures and repeat blood cultures have all been negative. 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 White count 10.0. Hemoglobin 12.9. Platelets 173. Sodium 139. Potassium 4.1. Bicarb 30. BUN 21. Creatinine 0.83. Glucose 100. Pro-calcitonin 0.07. He is currently on Zo syn per ID service. Normal saline at KVO. He is being nourished via nasogastric tube with vital AF at 83 ML's per hour which is goal. He remains in atrial fibrillation. He is on beta blockers and anticoagulated with Eliquis. The patient is seen today 03/06/2023 in follow-up in the intensive care unit. He is arousable. Able to state his name. Continues with garbled speech. Somewhat slow to respond. He is maintaining good O2 saturations in the 90s on room air. He has normal saline at 20 ML's per hour. Mean #nourished via nasogastric tube with vital AF at 83 ML's per hour which is goal. He was initiated on IVIG yesterday and the plan is for a total of 3 doses. His IgG2 was 172. IgE 338. He was also initiated on vitamins and probiotics. He is going for a MRI of the C-spine today per neurology. White count 8.6. Hemoglobin 12.7. Sodium 140. Potassium 4.2. Bicarb 26. BUN 22. Creatinine 0.69. Glucose 121. AST 59. ALT 92. Albumin 2.7. Currently in sinus rhythm. He is anticoagulated with Eliquis. Antibiotics in the form of Zosyn. The patient is seen today 03/07/2023 in follow-up in the intensive care unit. He is a bit more alert today. Still with garbled speech. Still waxing and waning. He is maintaining good O2 saturations in the upper 90s on room air. He's currently afebrile. Hemodynamically stable. Urine and blood, cerebrospinal fluid and follow up blood cultures have all revealed no growth. Testing positive for West Nile. 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 Moderate focal spinal canal stenosis. Continues to receive IVIG. [place] on Zosyn. Remains on vitamin supplements. Anticoagulated with Eliquis. Nasogastric tube remains in place. He is on vital AF at 83 ML's per hour which is goal. Progress note dated 03/08/2023. 77-year-old male that we have been seen in the intensive care unit, the entire week. The patient did test positive for West Nile virus. The patient's primary issue was that of encephalopathy, which has been slowly improving. Currently, the patient is seen in room 354. He is getting vital high protein at 83 mL an hour, via an NG tube. The patient not on any supplemental oxygen, and is not receiving any additional fluids. Zosyn is discontinued. The patient did receive 3 doses of IVIG, as per infectious diseases. White count 11.9, hemoglobin 13.9, hematocrit 41.1, with a normal platelet count. Sodium 138, potassium 5.2, chlorides 107, CO2 22, BUN 27 and creatinine 0.70. On today's evaluation of 2022, I'm seeing the patient for a follow-up. The patient is still lethargic, difficult to to communicate with. Nevertheless, upon repeated stimulation, he is able to follow some simple commands. He is calm and comfortable. Resting comfortably in bed. No signs of any overt respiratory distress. No fever. No seizure activity. The patient is h emodynamically stable. The patient is receiving enteral feeding for nutritional support and the patient is currently on vitamin HP at the rate of 83 mL an hour. The patient has completed 3 doses of IVIG treatment. Neurology is on the case. Infectious diseases also on the case. The patient remains on Keppra 750 mg IV every 12 hours. The patient is afebrile. The blood work shows a dull discom fort 13.5, he was 14.5 and a platelet count of 221. BUN is at 30 with a creatinine of 0.7 and a sodium level is at 138. Glucose at 124. Objective - Vital Signs Vital signs: Vital Signs Temp 97.6 F 03/09/23 04:00 Pulse 65 03/09/23 04:00 Resp 16 03/09/23 04:00 BP 123/73 03/09/23 04:00 Pulse Ox 96 03/09/23 04:00 FiO2 50 03/05/23 08:14 Intake & Output 03/08/23 03/09/23 03/09/23 18:59 06:59 18:59 Intake Total 240 Output Total 3000 900 Balance -3000 -660 Intake: Oral 240 Output: Urine 3000 900 Other: Voiding Method External Catheter External Catheter - Exam No acute distress, oriented, with a very flat affect. The patient is lethargic/somnolent, and does arouse. NG tube is noted. HEENT examination is grossly unremarkable. Mucous membranes are dry. Neck supple. Full range of motion. No adenopathy thyromegaly or neck vein distention. Cardiovascular examination reveals regular rhythm rate. S1-S2 normal. No S3 or S4. No discernible murmur noted. Lungs reveal clear breath sounds. Breath sounds are equal bilaterally. No adventitious lung sounds including wheezes rhonchi or crackles. Abdomen soft bowel sounds are heard. No masses or tenderness. Extremities are intact. No cyanosis clubbing or edema. Skin is without rash or lesion. Neurologic examination is awake, opens his eyes spontaneously, upon repeated stimulation, he can follow some simple commands. Nevertheless, overall, remains encephalopathic. - Labs CBC & Chem 7: 03/09/23 07:19 03/09/23 07:19 Labs: Abnormal Lab Results - Last 24 Hours (Table) 03/08/23 03/08/23 03/09/23 Range/Units 11:37 17:51 05:54 WBC (3.8-10.6) k/uL Carbon Dioxide (22-30) mmol/L BUN (9-20) mg/dL POC Glucose (mg/dL) 134 H 118 H 112 H (70-110) mg/dL Total Bilirubin (0.2-1.3) mg/dL ALT (4-49) U/L Albumin (3.5-5.0) g/dL 03/09/23 03/09/23 Range/Units 07:19 07:19 WBC 13.5 H (3.8-10.6) k/uL Carbon Dioxide 21 L (22-30) mmol/L BUN 30 H (9-20) mg/dL POC Glucose (mg/dL) (70-110) mg/dL Total Bilirubin 1.5 H (0.2-1.3) mg/dL ALT 80 H (4-49) U/L Albumin 3.4 L (3.5-5.0) g/dL Assessment and Plan Plan: Encephalopathy, secondary to the West Nile virus. Initiated on IVIG 3 doses. 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 Leukocytosis, resolved, possible aspiration pneumonia. Patient has completed Zosyn therapy. Acute rhabdomyolysis, significantly elevated CPK, improving with hydration, CPK is down to 719. Elevated LFTs, ultrasound showed hepatomegaly. Elevated troponins, possibly related to supply/demand mismatch. Atrial fibrillation with rapid ventricular response. The rate is currently controlled and the patient is currently on beta blockers and anticoagulation with Eliquis. Plan: Monitor neurological outcome Aspiration precautions Keep the NG tube in place Complete the course of antibiotics Continue oral Cardizem Continue oral metoprolol Continue anticoagulation with Eliquis We'll continue to follow
--- NOTE | 2023-03-09 17:24 | P.PN ---
Subjective Progress Note Date: 03/08/23 Principal diagnosis: Fever Patient is a 77-year-old male presenting to the hospital after the patient was found to be unresponsive by the , patient has been febrile initial testing negative including LP which was only mildly elevated protein. On today's evaluation that is 03/08/2023, the patient continues to be afebrile, , the patient is breathing comfortably on room air , the patient did respond to his name and answer simple questions appropriately no vomiting no diarrhea or any other changes reported by the nursing staff patient did have white count of 11.9, creatinine 0.70 Objective - Vital Signs Vital signs: Vital Signs Temp 97.2 F L 03/08/23 12:00 Pulse 70 03/08/23 16:00 Resp 16 03/08/23 16:00 BP 121/71 03/08/23 16:00 Pulse Ox 97 03/08/23 16:00 FiO2 50 03/05/23 08:14 Intake & Output 03/08/23 03/08/23 03/09/23 06:59 18:59 06:59 Intake Total 0 Output Total 2400 3000 Balance -2400 -3000 Intake: Oral 0 Output: Urine 2400 3000 Other: Voiding Method External Catheter External Catheter - Exam GENERAL DESCRIPTION: An elderly male lying in bed in no distress RESPIRATORY SYSTEM: Unlabored breathing , coarse breath sounds bilaterally HEART: S1 S2 regular rate and rhythm , ABDOMEN: Soft , no tenderness EXTREMITIES: No edema feet - Labs CBC & Chem 7: 03/09/23 07:19 03/09/23 07:19 Labs: Abnormal Lab Results - Last 24 Hours (Table) 03/08/23 03/08/23 03/08/23 Range/Units 00:06 06:13 08:03 WBC 11.9 H (3.8-10.6) k/uL RBC 4.18 L (4.30-5.90) m/uL Potassium (3.5-5.1) mmol/L BUN (9-20) mg/dL Glucose (74-99) mg/dL POC Glucose (mg/dL) 129 H 119 H (70-110) mg/dL Total Bilirubin (0.2-1.3) mg/dL AST (17-59) U/L ALT (4-49) U/L Albumin (3.5-5.0) g/dL 03/08/23 03/08/23 03/08/23 Range/Units 08:03 11:37 17:51 WBC (3.8-10.6) k/uL RBC (4.30-5.90) m/uL Potassium 5.2 H (3.5-5.1) mmol/L BUN 27 H (9-20) mg/dL Glucose 108 H (74-99) mg/dL POC Glucose (mg/dL) 134 H 118 H (70-110) mg/dL Total Bilirubin 1.7 H (0.2-1.3) mg/dL AST 68 H (17-59) U/L ALT 85 H (4-49) U/L Albumin 3.3 L (3.5-5.0) g/dL Assessment and Plan (1) Fever Current Visit: Yes Status: Acute Code(s): R50.9 - FEVER, UNSPECIFIED SNOMED Code(s): 814736680 (2) Pneumonia Current Visit: Yes Status: Acute Code(s): J18.9 - PNEUMONIA, UNSPECIFIED ORGANISM SNOMED Code(s): 949868325 (3) West Nile Virus infection Current Visit: Yes Status: Acute Code(s): A92.30 - WEST NILE VIRUS INFECTION, UNSPECIFIED SNOMED Code(s): 839766063 Plan: 1patient with SIRS in this patient with a fever elevated white count tachycardia with significant mental status changes high clinical suspicious for possible encephalitis/meningitis ,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 please excuse any grammatical, word or spelling errors. Time with Patient: Less than 30
--- NOTE | 2023-03-09 17:44 | P.PN ---
Subjective Progress Note Date: 03/09/23 Principal diagnosis: Fever Patient is a 77-year-old male presenting to the hospital after the patient was found to be unresponsive by the , patient has been febrile initial testing negative including LP which was only mildly elevated protein. On today's evaluation that is 03/09/2023, the patient remains to be afebrile, , the patient is breathing comfortably on room air , the patient is slightly lethargic today and did not answer any question, no vomiting no diarrhea or any other changes reported by the nursing staff patient did has slight worsening of the white count is up to 13.5, creatinine 0.72 Objective - Vital Signs Vital signs: Vital Signs Temp 97.4 F L 03/09/23 08:21 Pulse 74 03/09/23 12:31 Resp 16 03/09/23 12:31 BP 104/70 03/09/23 12:31 Pulse Ox 94 L 03/09/23 12:31 FiO2 50 03/05/23 08:14 Intake & Output 03/08/23 03/09/23 03/09/23 18:59 06:59 18:59 Intake Total 240 20 Output Total 3000 900 1000 Balance -3000 -660 -980 Intake: IV 20 Invasive Line 8 10 Invasive Line 9 10 Oral 240 Output: Urine 3000 900 1000 Other: Voiding Method External Catheter External Catheter External Catheter # Voids 1 # Bowel Movements 1 - Exam GENERAL DESCRIPTION: An elderly male lying in bed in no distress RESPIRATORY SYSTEM: Unlabored breathing , coarse breath sounds bilaterally HEART: S1 S2 regular rate and rhythm , ABDOMEN: Soft , no tenderness EXTREMITIES: No edema feet - Labs CBC & Chem 7: 03/09/23 07:19 03/09/23 07:19 Labs: Abnormal Lab Results - Last 24 Hours (Table) 03/08/23 03/09/23 03/09/23 Range/Units 17:51 05:54 07:19 WBC 13.5 H (3.8-10.6) k/uL Carbon Dioxide (22-30) mmol/L BUN (9-20) mg/dL POC Glucose (mg/dL) 118 H 112 H (70-110) mg/dL Total Bilirubin (0.2-1.3) mg/dL ALT (4-49) U/L Albumin (3.5-5.0) g/dL 03/09/23 03/09/23 Range/Units 07:19 11:55 WBC (3.8-10.6) k/uL Carbon Dioxide 21 L (22-30) mmol/L BUN 30 H (9-20) mg/dL POC Glucose (mg/dL) 124 H (70-110) mg/dL Total Bilirubin 1.5 H (0.2-1.3) mg/dL ALT 80 H (4-49) U/L Albumin 3.4 L (3.5-5.0) g/dL Assessment and Plan (1) Fever Current Visit: Yes Status: Acute Code(s): R50.9 - FEVER, UNSPECIFIED SNOMED Code(s): 245786401 (2) Pneumonia Current Visit: Yes Status: Acute Code(s): J18.9 - PNEUMONIA, UNSPECIFIED ORGANISM SNOMED Code(s): 207640426 (3) West Nile Virus infection Current Visit: Yes Status: Acute Code(s): A92.30 - WEST NILE VIRUS INFECTION, UNSPECIFIED SNOMED Code(s): 449049837 Plan: 1patient with SIRS in this patient with a fever elevated white count tachycardia with significant mental status changes high clinical suspicious for possible encephalitis/meningitis ,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 lab Dictation was produced using [employer] dictation software. please excuse any grammatical, word or spelling errors. Time with Patient: Less than 30
[2023-03-09] MEDS: SODIUM CHLORIDE 0.9% 1,000 ML IV SCH (17:54)
[2023-03-09 18:08] LABS: Glucose,Whole Blood 115 mg/dL (70-110)
[2023-03-10 00:11] LABS: Glucose,Whole Blood 121 mg/dL (70-110)
[2023-03-10 03:39] LABS: Glucose,Whole Blood 114 mg/dL (70-110)
[2023-03-10] MEDS ORDERED: DILTIAZEM 5 MG/ML 5 ML VIAL IVP STA (03:43)
[2023-03-10 04:04] LABS: Basophils % (A) 0 %; Eosinophils # (A) 0.1 k/uL (0-0.7); Eosinophils % (A) 1 %; HCT 42.8 % (39.0-53.0); HGB 14.3 gm/dL (13.0-17.5); Lymphocytes # (A) 2.2 k/uL (1.0-4.8); Lymphocytes % (A) 10 %; MCH 32.9 pg (25.0-35.0); MCHC 33.5 g/dL (31.0-37.0); MCV 98.1 fL (80.0-100.0); Mean Platelet Volume 8.3; Monocytes # (A) 1.4 k/uL (0-1.0); Monocytes % (A) 7 %; Neutrophils # (A) 17.5 k/uL (1.3-7.7); Neutrophils % (A) 81 %; Platelet Count 243 k/uL (150-450); RBC 4.36 m/uL (4.30-5.90); RDW 13.2 % (11.5-15.5); WBC 21.5 k/uL (3.8-10.6)
[2023-03-10 04:21] LABS: African American GFR (CKD) >90 (>60 ml/min/1.73 sqM); Anion Gap 13 mmol/L; Blood Urea Nitrogen 42 mg/dL (9-20); Calcium 9.1 mg/dL (8.4-10.2); Carbon Dioxide 20 mmol/L (22-30); Chloride 103 mmol/L (98-107); Glucose 109 mg/dL (74-99); Magnesium 2.4 mg/dL (1.6-2.3); Non-African American GFR(CKD) 83 (>60 ml/min/1.73 sqM); Potassium 5.3 mmol/L (3.5-5.1); Sodium 136 mmol/L (137-145)
[2023-03-10] MEDS ORDERED: KETOROLAC 15 MG/ML 1 ML VIAL IVP STA (04:52)
[2023-03-10 06:14] LABS: Glucose,Whole Blood 128 mg/dL (70-110)
[2023-03-10] MEDS: ACETAMINOPHEN TAB 325 MG TAB PO PRN ×2 (08:38→21:05)
[2023-03-10] MEDS: PANTOPRAZOLE 40 MG/10 ML VIAL IVP SCH (08:39)
[2023-03-10] MEDS: DILTIAZEM ORAL 30 MG TAB PO SCH ×3 (08:39→21:05)
[2023-03-10] MEDS: LACTOBACILLUS ACIDOPHILUS/PECT 1 EACH CAPSULE PO SCH ×3 (08:39→21:05)
[2023-03-10] MEDS: APIXABAN 5 MG TAB PO SCH ×2 (08:39→21:05)
[2023-03-10] MEDS: LOSARTAN 25 MG TAB PO SCH (08:39)
[2023-03-10] MEDS: levETIRAcetam IV 500 MG/5 ML VIAL IVP SCH ×2 (08:39→21:05)
[2023-03-10] MEDS: ZINC SULFATE 220 MG CAP PO SCH (08:39)
[2023-03-10] MEDS: METOPROLOL TARTRATE 50 MG TAB PO SCH ×3 (08:39→21:10)
[2023-03-10] MEDS: ASCORBIC ACID 500 MG TAB PO SCH (08:39)
[2023-03-10] MEDS: CHOLECALCIFEROL 125 MCG (5000 IU) TABLET PO SCH (08:39)
--- NOTE | 2023-03-10 09:06 | P.PN ---
Subjective Progress Note Date: 03/10/23 Principal diagnosis: Altered mental status This is a 77-year-old male who presented to the ER with concerns of altered mental status. His had found him on the ground prior to coming to the ER. He was placed in ICU, has had tachycardia with hypotension. He also continues t o have intermittent fevers. Workup for bacterial meningitis was negative. EEG was negative for seizure activity. Further workup still in progress. Patient still has a white count today. He is seen laying in bed in the ICU this morning, in no acute distress. 03/02/2023 Patient is seen and evaluated sitting up in bed in ICU. Over the weekend patient developed atrial fibrillation with RVR. He remains on a heparin drip. Patient also began to be more alert over the weekend, responds to verbal commands, does have garbled speech. Neurology has ordered an MRI of the brain. 03/05/2023 Patient is seen and evaluated laying in bed in ICU. He continues to be not very arousable, not alert today. Speech remains garbled. Labs have come back showing West Nile virus, infectious disease already consulted, await their recommendations. 03/09/2023 Patient is seen and evaluated on step-down unit. He did receive 3 doses of IVIG. NG tube and feeding still in place. Speech still garbled, he is arousable though and able to follow simple commands 03/10/2023 Patient is seen and evaluated on step-down unit. White count elevated today, no fever. Chest XR pending. Patient looks more restless in the bed today. Objective - Vital Signs Vital signs: Vital Signs Temp 97.1 F L 03/10/23 07:48 Pulse 85 03/10/23 07:48 Resp 19 03/10/23 07:48 BP 113/63 03/10/23 07:48 Pulse Ox 92 L 03/10/23 07:48 FiO2 50 03/05/23 08:14 Intake & Output 03/09/23 03/10/23 03/10/23 18:59 06:59 18:59 Intake Total 40 20 Output Total 1450 625 Balance -1410 -605 Intake: IV 40 20 Invasive Line 8 20 Invasive Line 9 20 Sodium Chloride 0.9% 1, 20 000 ml @ 20 mls/hr IV . Q24H [facility] Rx#:[id number] Output: Urine 1450 625 Other: Voiding Method External Catheter External Catheter # Voids 1 # Bowel Movements 1 - Constitutional General appearance: Present: cooperative, no acute distress - EENT Eyes: Present: PERRLA - Neck Neck: Present: normal ROM. Absent: lymphadenopathy, rigidity - Respiratory Respiratory: bilateral: CTA - Cardiovascular Rhythm: regular Heart sounds: normal: S1, S2 - Gastrointestinal General gastrointestinal: Present: soft. Absent: tenderness - Integumentary Integumentary: Present: normal, normal turgor - Musculoskeletal Musculoskeletal: Present: generalized weakness - Psychiatric Psychiatric Comment(s): alert to person and place - Labs CBC & Chem 7: 03/10/23 03:52 03/10/23 03:51 Labs: Abnormal Lab Results - Last 24 Hours (Table) 03/09/23 03/09/23 03/10/23 Range/Units 11:55 18:07 00:09 WBC (3.8-10.6) k/uL Neutrophils # (1.3-7.7) k/uL Monocytes # (0-1.0) k/uL Sodium (137-145) mmol/L Potassium (3.5-5.1) mmol/L Carbon Dioxide (22-30) mmol/L BUN (9-20) mg/dL Glucose (74-99) mg/dL POC Glucose (mg/dL) 124 H 115 H 121 H (70-110) mg/dL Magnesium (1.6-2.3) mg/dL 03/10/23 03/10/23 03/10/23 Range/Units 03:37 03:51 03:52 WBC 21.5 H (3.8-10.6) k/uL Neutrophils # 17.5 H (1.3-7.7) k/uL Monocytes # 1.4 H (0-1.0) k/uL Sodium 136 L (137-145) mmol/L Potassium 5.3 H (3.5-5.1) mmol/L Carbon Dioxide 20 L (22-30) mmol/L BUN 42 H (9-20) mg/dL Glucose 109 H (74-99) mg/dL POC Glucose (mg/dL) 114 H (70-110) mg/dL Magnesium 2.4 H (1.6-2.3) mg/dL 03/10/23 Range/Units 06:12 WBC (3.8-10.6) k/uL Neutrophils # (1.3-7.7) k/uL Monocytes # (0-1.0) k/uL Sodium (137-145) mmol/L Potassium (3.5-5.1) mmol/L Carbon Dioxide (22-30) mmol/L BUN (9-20) mg/dL Glucose (74-99) mg/dL POC Glucose (mg/dL) 128 H (70-110) mg/dL Magnesium (1.6-2.3) mg/dL Assessment and Plan (1) Altered mental status Current Visit: Yes Status: Acute Code(s): R41.82 - ALTERED MENTAL STATUS, UNSPECIFIED SNOMED Code(s): 247862839 (2) Pneumonia Current Visit: Yes Status: Acute Code(s): J18.9 - PNEUMONIA, UNSPECIFIED ORGANISM SNOMED Code(s): 640398947 (3) Septic shock Current Visit: Yes Status: Acute Code(s): A41.9 - SEPSIS, UNSPECIFIED ORGANISM; R65.21 - SEVERE SEPSIS WITH SEPTIC SHOCK SNOMED Code(s): 58238416 (4) Atrial fibrillation Current Visit: Yes Status: Acute Code(s): I48.91 - UNSPECIFIED ATRIAL FIBRILLATION SNOMED Code(s): 49879812 (5) West Nile Virus infection Current Visit: Yes Status: Acute Code(s): A92.30 - WEST NILE VIRUS INFECTION, UNSPECIFIED SNOMED Code(s): 340799819 Plan: CBC and CMP in the morning. Order UA and blood cultures Patient seen and evaluated by nurse practitioner, physician in agreement with plan
--- NOTE | 2023-03-10 09:34 | XR ---
EXAMINATION TYPE: XR chest 1V portable DATE OF EXAM: 03/10/2023 Comparison: 02/25/2023 Clinical History: 77-year-old male pneumonia Findings: NG tube courses below the diaphragm. Mild hyperinflation. Tortuous/ectatic thoracic aorta. Improvemen t in the appearance of the interstitium. No consolidation or pleural effusion. Impression: Significant improvement in the appearance of the interstitium and previous left basilar opacity. Ther e may be underlying COPD. Similar tortuous/ectatic thoracic aorta. No definite acute process.
[2023-03-10 10:29] LABS: ALT 66 U/L (4-49); AST 45 U/L (17-59); African American GFR (CKD) >90 (>60 ml/min/1.73 sqM); Albumin 3.3 g/dL (3.5-5.0); Alkaline Phosphatase 41 U/L (38-126); Anion Gap 11 mmol/L; Blood Urea Nitrogen 50 mg/dL (9-20); C Reactive Protein 4.1 mg/dL (<1.0); Calcium 8.7 mg/dL (8.4-10.2); Carbon Dioxide 21 mmol/L (22-30); Chloride 104 mmol/L (98-107); Glucose 118 mg/dL (74-99); Non-African American GFR(CKD) 82 (>60 ml/min/1.73 sqM); Potassium 5.5 mmol/L (3.5-5.1); Sodium 136 mmol/L (137-145); Total Bilirubin 1.9 mg/dL (0.2-1.3); Total Protein 7.5 g/dL (6.3-8.2)
[2023-03-10] MEDS: SODIUM CHLORIDE 0.9% 1,000 ML IV SCH (10:36)
[2023-03-10 12:16] LABS: Glucose,Whole Blood 109 mg/dL (70-110)
--- NOTE | 2023-03-10 12:27 | P.PN ---
Subjective Progress Note Date: 03/10/23 The patient is seen today 03/04/2023 in follow-up in the intensive care unit. Currently maintaining good O2 saturations in the 90s on 3 L/m per nasal cannula. Remains on Cardizem drip at 5 mg per hour. Normal saline at 20 ML's per hour. He is being nourished via nasogastric tube with vital AF at 75 ML's per hour with a goal of 83 ML's per hour. He did utilize BiPAP last night 19/01 and 50% FiO2. He had some episodes of atrial fibrillation with RVR again. He also had an episode of respiratory distress. Arterial blood gases revealed a pO2 of 225, pCO2 40 and a pH of 7.48. Chest x-ray did not reveal any acute changes. He remains slow to respond. His speech remains quite garbled. Currently in atrial fibrillation with a controlled ventricular rate. Sodium 140. Potassium 3.5. Bicarb 30. BUN 19. Creatinine 0.66. AST 84. ALT 92. The patient is seen today 03/05/2023 in follow-up in the intensive care unit. Neurologically remains about the same. Arousable, garbled speech. Afebrile. Maintaining good O2 saturations in the 90s on room air. Blood cultures, urine culture, cerebrospinal fluid cultures and repeat blood cultures have all been negative. 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 White count 10.0. Hemoglobin 12.9. Platelets 173. Sodium 139. Potassium 4.1. Bicarb 30. BUN 21. Creatinine 0.83. Glucose 100. Pro-calcitonin 0.07. He is currently on Zo syn per ID service. Normal saline at KVO. He is being nourished via nasogastric tube with vital AF at 83 ML's per hour which is goal. He remains in atrial fibrillation. He is on beta blockers and anticoagulated with Eliquis. The patient is seen today 03/06/2023 in follow-up in the intensive care unit. He is arousable. Able to state his name. Continues with garbled speech. Somewhat slow to respond. He is maintaining good O2 saturations in the 90s on room air. He has normal saline at 20 ML's per hour. Mean #nourished via nasogastric tube with vital AF at 83 ML's per hour which is goal. He was initiated on IVIG yesterday and the plan is for a total of 3 doses. His IgG2 was 172. IgE 338. He was also initiated on vitamins and probiotics. He is going for a MRI of the C-spine today per neurology. White count 8.6. Hemoglobin 12.7. Sodium 140. Potassium 4.2. Bicarb 26. BUN 22. Creatinine 0.69. Glucose 121. AST 59. ALT 92. Albumin 2.7. Currently in sinus rhythm. He is anticoagulated with Eliquis. Antibiotics in the form of Zosyn. The patient is seen today 03/07/2023 in follow-up in the intensive care unit. He is a bit more alert today. Still with garbled speech. Still waxing and waning. He is maintaining good O2 saturations in the upper 90s on room air. He's currently afebrile. Hemodynamically stable. Urine and blood, cerebrospinal fluid and follow up blood cultures have all revealed no growth. Testing positive for West Nile. 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 Moderate focal spinal canal stenosis. Continues to receive IVIG. [place] on Zosyn. Remains on vitamin supplements. Anticoagulated with Eliquis. Nasogastric tube remains in place. He is on vital AF at 83 ML's per hour which is goal. Progress note dated 03/08/2023. 77-year-old male that we have been seen in the intensive care unit, the entire week. The patient did test positive for West Nile virus. The patient's primary issue was that of encephalopathy, which has been slowly improving. Currently, the patient is seen in room 354. He is getting vital high protein at 83 mL an hour, via an NG tube. The patient not on any supplemental oxygen, and is not receiving any additional fluids. Zosyn is discontinued. The patient did receive 3 doses of IVIG, as per infectious diseases. White count 11.9, hemoglobin 13.9, hematocrit 41.1, with a normal platelet count. Sodium 138, potassium 5.2, chlorides 107, CO2 22, BUN 27 and creatinine 0.70. On today's evaluation of 2022, I'm seeing the patient for a follow-up. The patient is still lethargic, difficult to to communicate with. Nevertheless, upon repeated stimulation, he is able to follow some simple commands. He is calm and comfortable. Resting comfortably in bed. No signs of any overt respiratory distress. No fever. No seizure activity. The patient is h emodynamically stable. The patient is receiving enteral feeding for nutritional support and the patient is currently on vitamin HP at the rate of 83 mL an hour. The patient has completed 3 doses of IVIG treatment. Neurology is on the case. Infectious diseases also on the case. The patient remains on Keppra 750 mg IV every 12 hours. The patient is afebrile. The blood work shows a dull discom fort 13.5, he was 14.5 and a platelet count of 221. BUN is at 30 with a creatinine of 0.7 and a sodium level is at 138. Glucose at 124. On 03/10/2023, the patient's condition is essentially unchanged. Lethargic, , encephalopathic, occasionally following some simple commands although his responses not consistent. Continues to receive enteral feeding for nutritional support. NG tube is in place. No fever. No chills. No other complaints. Electrolytes show a potassium level of 5.5, sodium is at 136, BUN is a 50 with a creatinine of 0.8. LFTs are within normal limits. The patient is on Cozaar for blood pressure control 25 mg by mouth daily. The patient is also taking Cardizem 30 mg by mouth 3 times a day. The patient remains on Keppra. Neurology on the case. The patient is on normal saline at rate of 20 mL an hour. Objective - Vital Signs Vital signs: Vital Signs Temp 97.1 F L 03/10/23 07:48 Pulse 85 03/10/23 07:48 Resp 19 03/10/23 07:48 BP 113/63 03/10/23 07:48 Pulse Ox 92 L 03/10/23 07:48 FiO2 50 03/05/23 08:14 Intake & Output 03/09/23 03/10/23 03/10/23 18:59 06:59 18:59 Intake Total 40 20 Output Total 1450 625 Balance -1410 -605 Intake: IV 40 20 Invasive Line 8 20 Invasive Line 9 20 Sodium Chloride 0.9% 1, 20 000 ml @ 20 mls/hr IV . Q24H [facility] Rx#:[id number] Output: Urine 1450 625 Other: Voiding Method External Catheter External Catheter External Catheter # Voids 1 # Bowel Movements 1 - Exam No acute distress, oriented, with a very flat affect. The patient is lethargic/somnolent, and does arouse. NG tube is noted. HEENT examination is grossly unremarkable. Mucous membranes are dry. Neck supple. Full range of motion. No adenopathy thyromegaly or neck vein distention. Cardiovascular examination reveals regular rhythm rate. S1-S2 normal. No S3 or S4. No discernible murmur noted. Lungs reveal clear breath sounds. Breath sounds are equal bilaterally. No adventitious lung sounds including wheezes rhonchi or crackles. Abdomen soft bowel sounds are heard. No masses or tenderness. Extremities are intact. No cyanosis clubbing or edema. Skin is without rash or lesion. Neurologic examination is awake, opens his eyes spontaneously, upon repeated stimulation, he can follow some simple commands. Nevertheless, overall, remains encephalopathic. - Labs CBC & Chem 7: 03/10/23 03:52 03/10/23 07:31 Labs: Abnormal Lab Results - Last 24 Hours (Table) 03/09/23 03/09/23 03/10/23 Range/Units 11:55 18:07 00:09 WBC (3.8-10.6) k/uL Neutrophils # (1.3-7.7) k/uL Monocytes # (0-1.0) k/uL Sodium (137-145) mmol/L Potassium (3.5-5.1) mmol/L Carbon Dioxide (22-30) mmol/L BUN (9-20) mg/dL Glucose (74-99) mg/dL POC Glucose (mg/dL) 124 H 115 H 121 H (70-110) mg/dL Magnesium (1.6-2.3) mg/dL Total Bilirubin (0.2-1.3) mg/dL ALT (4-49) U/L C-Reactive Protein (<1.0) mg/dL Albumin (3.5-5.0) g/dL 03/10/23 03/10/23 03/10/23 Range/Units 03:37 03:51 03:52 WBC 21.5 H (3.8-10.6) k/uL Neutrophils # 17.5 H (1.3-7.7) k/uL Monocytes # 1.4 H (0-1.0) k/uL Sodium 136 L (137-145) mmol/L Potassium 5.3 H (3.5-5.1) mmol/L Carbon Dioxide 20 L (22-30) mmol/L BUN 42 H (9-20) mg/dL Glucose 109 H (74-99) mg/dL POC Glucose (mg/dL) 114 H (70-110) mg/dL Magnesium 2.4 H (1.6-2.3) mg/dL Total Bilirubin (0.2-1.3) mg/dL ALT (4-49) U/L C-Reactive Protein (<1.0) mg/dL Albumin (3.5-5.0) g/dL 03/10/23 03/10/23 Range/Units 06:12 07:31 WBC (3.8-10.6) k/uL Neutrophils # (1.3-7.7) k/uL Monocytes # (0-1.0) k/uL Sodium 136 L (137-145) mmol/L Potassium 5.5 H (3.5-5.1) mmol/L Carbon Dioxide 21 L (22-30) mmol/L BUN 50 H (9-20) mg/dL Glucose 118 H (74-99) mg/dL POC Glucose (mg/dL) 128 H (70-110) mg/dL Magnesium (1.6-2.3) mg/dL Total Bilirubin 1.9 H (0.2-1.3) mg/dL ALT 66 H (4-49) U/L C-Reactive Protein 4.1 H (<1.0) mg/dL Albumin 3.3 L (3.5-5.0) g/dL Assessment and Plan Plan: Encephalopathy, secondary to the West Nile virus. Initiated on IVIG 3 doses. 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 Leukocytosis, resolved, possible aspiration pneumonia. Patient has completed Zosyn therapy. Acute rhabdomyolysis, significantly elevated CPK, improving with hydration, CPK is down to 719. Elevated LFTs, ultrasound showed hepatomegaly. Elevated troponins, possibly related to supply/demand mismatch. Atrial fibrillation with rapid ventricular response. The rate is currently controlled and the patient is currently on beta blockers and anticoagulation with Eliquis. Plan: Monitor neurological outcome, neurologically unchanged compared to yesterday and the patient continues to be encephalopathic. Continue Keppra, no signs of any ongoing seizure activity Aspiration precautions Keep the NG tube in place Complete the course of antibiotics Continue oral Cardizem Continue oral metoprolol Continue anticoagulation with Eliquis We'll continue to follow
[2023-03-10 12:40] LABS: Amorphous Sediment,Urine Rare /hpf; Appearance,Urine Clear (Clear); Bacteria,Urine Rare /hpf; Bilirubin,Urine Negative (Negative); Blood,Urine Negative (Negative); Color,Urine Yellow; Glucose,Urine (UA) Negative (Negative); Ketones,Urine Negative (Negative); Leukocyte Esterase,Urine Small (Negative); Mucus,Urine Rare /hpf; Nitrite,Urine Negative (Negative); Protein,Urine Trace (Negative); RBC,Urine 2 /hpf (0-5); Specific Gravity,Urine 1.029 (1.001-1.035); Squamous Epithelial Cell,Urine <1 /hpf (0-4); WBC,Urine 2 /hpf (0-5)
[2023-03-10] MEDS ORDERED: FLUCONAZOLE IN NACL,ISO-OSM 200 MG in SALINE 1 100ML.BAG IVPB STA (16:32)
--- NOTE | 2023-03-10 16:33 | P.PN ---
Subjective Progress Note Date: 03/10/23 Principal diagnosis: Fever Patient is a 77-year-old male presenting to the hospital after the patient was found to be unresponsive by the , patient has been febrile initial testing negative including LP which was only mildly elevated protein. On today's evaluation that is 03/10/2023, the patient continues to be afebrile, , the patient is breathing comfortably on room air , the patient is slightly lethargic but did respond to his name, the patient did have NG for feeding no vomiting no diarrhea or any other changes reported by the nursing staff patient white count is up to 21.5, creatinine 0.85, UA is negative, procalcitonin is pending, chest x-ray with significant improvement in the appearance of the interstitium and previous left basal opacity Objective - Vital Signs Vital signs: Vital Signs Temp 97.5 F L 03/10/23 11:01 Pulse 56 L 03/10/23 13:32 Resp 16 03/10/23 13:32 BP 107/61 03/10/23 11:01 Pulse Ox 97 03/10/23 11:01 FiO2 50 03/05/23 08:14 Intake & Output 03/09/23 03/10/23 03/10/23 18:59 06:59 18:59 Intake Total 40 20 Output Total 1450 625 Balance -1410 -605 Weight 99.9 kg Intake: IV 40 20 Invasive Line 8 20 Invasive Line 9 20 Sodium Chloride 0.9% 1, 20 000 ml @ 20 mls/hr IV . Q24H [facility] Rx#:[id number] Output: Urine 1450 625 Other: Voiding Method External Catheter External Catheter External Catheter # Voids 1 # Bowel Movements 1 - Exam GENERAL DESCRIPTION: An elderly male lying in bed in no distress RESPIRATORY SYSTEM: Unlabored breathing , coarse breath sounds bilaterally HEART: S1 S2 regular rate and rhythm , ABDOMEN: Soft , no tenderness EXTREMITIES: No edema feet - Labs CBC & Chem 7: 03/10/23 03:52 03/10/23 07:31 Labs: Abnormal Lab Results - Last 24 Hours (Table) 03/09/23 03/10/23 03/10/23 Range/Units 18:07 00:09 03:37 WBC (3.8-10.6) k/uL Neutrophils # (1.3-7.7) k/uL Monocytes # (0-1.0) k/uL Sodium (137-145) mmol/L Potassium (3.5-5.1) mmol/L Carbon Dioxide (22-30) mmol/L BUN (9-20) mg/dL Glucose (74-99) mg/dL POC Glucose (mg/dL) 115 H 121 H 114 H (70-110) mg/dL Magnesium (1.6-2.3) mg/dL Total Bilirubin (0.2-1.3) mg/dL ALT (4-49) U/L C-Reactive Protein (<1.0) mg/dL Albumin (3.5-5.0) g/dL Urine Protein (Negative) Ur Leukocyte Esterase (Negative) Amorphous Sediment (None) /hpf Urine Bacteria (None) /hpf Urine Mucus (None) /hpf 03/10/23 03/10/23 03/10/23 Range/Units 03:51 03:52 06:12 WBC 21.5 H (3.8-10.6) k/uL Neutrophils # 17.5 H (1.3-7.7) k/uL Monocytes # 1.4 H (0-1.0) k/uL Sodium 136 L (137-145) mmol/L Potassium 5.3 H (3.5-5.1) mmol/L Carbon Dioxide 20 L (22-30) mmol/L BUN 42 H (9-20) mg/dL Glucose 109 H (74-99) mg/dL POC Glucose (mg/dL) 128 H (70-110) mg/dL Magnesium 2.4 H (1.6-2.3) mg/dL Total Bilirubin (0.2-1.3) mg/dL ALT (4-49) U/L C-Reactive Protein (<1.0) mg/dL Albumin (3.5-5.0) g/dL Urine Protein (Negative) Ur Leukocyte Esterase (Negative) Amorphous Sediment (None) /hpf Urine Bacteria (None) /hpf Urine Mucus (None) /hpf 03/10/23 03/10/23 Range/Units 07:31 12:24 WBC (3.8-10.6) k/uL Neutrophils # (1.3-7.7) k/uL Monocytes # (0-1.0) k/uL Sodium 136 L (137-145) mmol/L Potassium 5.5 H (3.5-5.1) mmol/L Carbon Dioxide 21 L (22-30) mmol/L BUN 50 H (9-20) mg/dL Glucose 118 H (74-99) mg/dL POC Glucose (mg/dL) (70-110) mg/dL Magnesium (1.6-2.3) mg/dL Total Bilirubin 1.9 H (0.2-1.3) mg/dL ALT 66 H (4-49) U/L C-Reactive Protein 4.1 H (<1.0) mg/dL Albumin 3.3 L (3.5-5.0) g/dL Urine Protein Trace H (Negative) Ur Leukocyte Esterase Small H (Negative) Amorphous Sediment Rare H (None) /hpf Urine Bacteria Rare H (None) /hpf Urine Mucus Rare H (None) /hpf Assessment and Plan (1) Fever Current Visit: Yes Status: Acute Code(s): R50.9 - FEVER, UNSPECIFIED SNOMED Code(s): 609988692 (2) Pneumonia Current Visit: Yes Status: Acute Code(s): J18.9 - PNEUMONIA, UNSPECIFIED ORGANISM SNOMED Code(s): 250593996 (3) West Nile Virus infection Current Visit: Yes Status: Acute Code(s): A92.30 - WEST NILE VIRUS INFECTION, UNSPECIFIED SNOMED Code(s): 612948984 Plan: 1patient with SIRS in this patient with a fever elevated white count tachycardia with significant mental status changes high clinical suspicious for possible encephalitis/meningitis ,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, the treatment is mostly supportive this has been discussed in detail with the daughter at the bedside who asked for antiviral treatment, currently no studies support the use of ribavirin or acyclovir, steroids is also questionable, there is some role for immunoglobulin infusion , which patient has already received 2 patient also have a congested cough and question of possible aspiration pneumonitis, for which the patient has completed a course of Zosyn, patient chest x-ray repeated on 03/10/2023 did shows overall resolution of the left basal opacity in no acute infiltrate 3Worsening leukocytosis possible oropharyngeal candidiasis will add Diflucan and see clinical response Family the bedside questions were answered Dictation was produced using [employer] software. please excuse any grammatical, word or spelling errors.
[2023-03-10 18:22] LABS: Glucose,Whole Blood 116 mg/dL (70-110)
[2023-03-11 00:06] LABS: Glucose,Whole Blood 114 mg/dL (70-110)
[2023-03-11 08:10] LABS: Basophils # (A) 0.1 k/uL (0-0.2); Basophils % (A) 0 %; Eosinophils # (A) 0.1 k/uL (0-0.7); Eosinophils % (A) 1 %; HCT 41.6 % (39.0-53.0); HGB 13.9 gm/dL (13.0-17.5); Lymphocytes # (A) 1.6 k/uL (1.0-4.8); Lymphocytes % (A) 10 %; MCH 33.3 pg (25.0-35.0); MCHC 33.4 g/dL (31.0-37.0); MCV 99.7 fL (80.0-100.0); Mean Platelet Volume 9.6; Monocytes # (A) 1.4 k/uL (0-1.0); Monocytes % (A) 8 %; Neutrophils # (A) 13.4 k/uL (1.3-7.7); Neutrophils % (A) 80 %; Platelet Count 202 k/uL (150-450); RBC 4.17 m/uL (4.30-5.90); RDW 13.6 % (11.5-15.5); WBC 16.8 k/uL (3.8-10.6)
[2023-03-11 08:26] LABS: ALT 62 U/L (4-49); AST 40 U/L (17-59); African American GFR (CKD) >90 (>60 ml/min/1.73 sqM); Albumin 3.6 g/dL (3.5-5.0); Alkaline Phosphatase 54 U/L (38-126); Anion Gap 11 mmol/L; Blood Urea Nitrogen 41 mg/dL (9-20); Carbon Dioxide 23 mmol/L (22-30); Chloride 104 mmol/L (98-107); Glucose 98 mg/dL (74-99); Non-African American GFR(CKD) 89 (>60 ml/min/1.73 sqM); Potassium 5.1 mmol/L (3.5-5.1); Sodium 138 mmol/L (137-145); Total Bilirubin 1.5 mg/dL (0.2-1.3); Total Protein 7.8 g/dL (6.3-8.2)
--- NOTE | 2023-03-11 08:58 | P.PN ---
Subjective Principal diagnosis: Altered mental status This is 77-year-old white male with no significant past medical history came in and septic shock and questionable pneumonia. He was significant tachycardia with hypotension and was placed in ICU for observation. He continues to have significant mental status changes. Question febrile seizure element. Temperature is improved IV Tylenol has been administered. Appreciate multiple consultants input. He is not able to answer questions today. Objective - Vital Signs Vital signs: Vital Signs Temp 97.8 F 03/11/23 04:59 Pulse 70 03/11/23 04:59 Resp 16 03/11/23 04:59 BP 113/65 03/11/23 04:59 Pulse Ox 98 03/11/23 04:59 FiO2 50 03/05/23 08:14 Intake & Output 03/10/23 03/11/23 03/11/23 18:59 06:59 18:59 Intake Total 724 Output Total 400 850 Balance 324 -850 Weight 99.9 kg 92 kg Intake: Tube Feeding 664 Other 60 Output: Urine 400 850 Other: Voiding Method External Catheter External Catheter - Constitutional General appearance: Present: average body habitus, no acute distress. Absent: cooperative - Neck Neck: Absent: lymphadenopathy - Respiratory Respiratory: bilateral: CTA - Cardiovascular Rhythm: regular Heart sounds: normal: S1, S2 Abnormal Heart Sounds: Absent: S3 Gallop - Gastrointestinal General gastrointestinal: Present: soft. Absent: tenderness - Integumentary Integumentary: Absent: cyanotic - Labs CBC & Chem 7: 03/11/23 07:02 03/11/23 07:02 Labs: Abnormal Lab Results - Last 24 Hours (Table) 03/10/23 03/10/23 03/10/23 Range/Units 07:31 12:24 18:11 WBC (3.8-10.6) k/uL RBC (4.30-5.90) m/uL Neutrophils # (1.3-7.7) k/uL Monocytes # (0-1.0) k/uL Sodium 136 L (137-145) mmol/L Potassium 5.5 H (3.5-5.1) mmol/L Carbon Dioxide 21 L (22-30) mmol/L BUN 50 H (9-20) mg/dL Glucose 118 H (74-99) mg/dL POC Glucose (mg/dL) 116 H (70-110) mg/dL Total Bilirubin 1.9 H (0.2-1.3) mg/dL ALT 66 H (4-49) U/L C-Reactive Protein 4.1 H (<1.0) mg/dL Albumin 3.3 L (3.5-5.0) g/dL Urine Protein Trace H (Negative) Ur Leukocyte Esterase Small H (Negative) Amorphous Sediment Rare H (None) /hpf Urine Bacteria Rare H (None) /hpf Urine Mucus Rare H (None) /hpf 03/11/23 03/11/23 03/11/23 Range/Units 00:04 07:02 07:02 WBC 16.8 H (3.8-10.6) k/uL RBC 4.17 L (4.30-5.90) m/uL Neutrophils # 13.4 H (1.3-7.7) k/uL Monocytes # 1.4 H (0-1.0) k/uL Sodium (137-145) mmol/L Potassium (3.5-5.1) mmol/L Carbon Dioxide (22-30) mmol/L BUN 41 H (9-20) mg/dL Glucose (74-99) mg/dL POC Glucose (mg/dL) 114 H (70-110) mg/dL Total Bilirubin 1.5 H (0.2-1.3) mg/dL ALT 62 H (4-49) U/L C-Reactive Protein (<1.0) mg/dL Albumin (3.5-5.0) g/dL Urine Protein (Negative) Ur Leukocyte Esterase (Negative) Amorphous Sediment (None) /hpf Urine Bacteria (None) /hpf Urine Mucus (None) /hpf Assessment and Plan (1) Altered mental status Current Visit: Yes Status: Acute Code(s): R41.82 - ALTERED MENTAL STATUS, UNSPECIFIED SNOMED Code(s): 898837608 (2) Pneumonia Current Visit: Yes Status: Acute Code(s): J18.9 - PNEUMONIA, UNSPECIFIED ORGANISM SNOMED Code(s): 934563336 (3) Septic shock Current Visit: Yes Status: Acute Code(s): A41.9 - SEPSIS, UNSPECIFIED O RGANISM; R65.21 - SEVERE SEPSIS WITH SEPTIC SHOCK SNOMED Code(s): 26462268 (4) West Nile fever Current Visit: Yes Status: Acute Code(s): A92.30 - WEST NILE VIRUS INFECTION, UNSPECIFIED SNOMED Code(s): 158211715 Plan: Continue supportive care. West Nile supportive care. IVIG has been given. We'll continue to follow Check CBC and CMP in a.m.
[2023-03-11] MEDS: ZINC SULFATE 220 MG CAP PO SCH (09:29)
[2023-03-11] MEDS: CHOLECALCIFEROL 125 MCG (5000 IU) TABLET PO SCH (09:29)
[2023-03-11] MEDS: LOSARTAN 25 MG TAB PO SCH (09:29)
[2023-03-11] MEDS: METOPROLOL TARTRATE 50 MG TAB PO SCH ×3 (09:30→21:12)
[2023-03-11] MEDS: PANTOPRAZOLE 40 MG/10 ML VIAL IVP SCH (09:30)
[2023-03-11] MEDS: APIXABAN 5 MG TAB PO SCH ×2 (09:30→21:12)
[2023-03-11] MEDS: ASCORBIC ACID 500 MG TAB PO SCH (09:30)
[2023-03-11] MEDS: LACTOBACILLUS ACIDOPHILUS/PECT 1 EACH CAPSULE PO SCH ×3 (09:30→21:12)
[2023-03-11] MEDS: DILTIAZEM ORAL 30 MG TAB PO SCH ×3 (09:30→21:12)
[2023-03-11] MEDS: levETIRAcetam IV 500 MG/5 ML VIAL IVP SCH ×2 (09:32→21:12)
[2023-03-11 12:04] LABS: Glucose,Whole Blood 97 mg/dL (70-110)
[2023-03-11] MEDS: FLUCONAZOLE 100 MG TAB PO SCH (12:27)
--- NOTE | 2023-03-11 16:17 | P.PN ---
Subjective Progress Note Date: 03/11/23 The patient is seen today 03/04/2023 in follow-up in the intensive care unit. Currently maintaining good O2 saturations in the 90s on 3 L/m per nasal cannula. Remains on Cardizem drip at 5 mg per hour. Normal saline at 20 ML's per hour. He is being nourished via nasogastric tube with vital AF at 75 ML's per hour with a goal of 83 ML's per hour. He did utilize BiPAP last night 19/01 and 50% FiO2. He had some episodes of atrial fibrillation with RVR again. He also had an episode of respiratory distress. Arterial blood gases revealed a pO2 of 225, pCO2 40 and a pH of 7.48. Chest x-ray did not reveal any acute changes. He remains slow to respond. His speech remains quite garbled. Currently in atrial fibrillation with a controlled ventricular rate. Sodium 140. Potassium 3.5. Bicarb 30. BUN 19. Creatinine 0.66. AST 84. ALT 92. The patient is seen today 03/05/2023 in follow-up in the intensive care unit. Neurologically remains about the same. Arousable, garbled speech. Afebrile. Maintaining good O2 saturations in the 90s on room air. Blood cultures, urine culture, cerebrospinal fluid cultures and repeat blood cultures have all been negative. 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 White count 10.0. Hemoglobin 12.9. Platelets 173. Sodium 139. Potassium 4.1. Bicarb 30. BUN 21. Creatinine 0.83. Glucose 100. Pro-calcitonin 0.07. He is currently on Zo syn per ID service. Normal saline at KVO. He is being nourished via nasogastric tube with vital AF at 83 ML's per hour which is goal. He remains in atrial fibrillation. He is on beta blockers and anticoagulated with Eliquis. The patient is seen today 03/06/2023 in follow-up in the intensive care unit. He is arousable. Able to state his name. Continues with garbled speech. Somewhat slow to respond. He is maintaining good O2 saturations in the 90s on room air. He has normal saline at 20 ML's per hour. Mean #nourished via nasogastric tube with vital AF at 83 ML's per hour which is goal. He was initiated on IVIG yesterday and the plan is for a total of 3 doses. His IgG2 was 172. IgE 338. He was also initiated on vitamins and probiotics. He is going for a MRI of the C-spine today per neurology. White count 8.6. Hemoglobin 12.7. Sodium 140. Potassium 4.2. Bicarb 26. BUN 22. Creatinine 0.69. Glucose 121. AST 59. ALT 92. Albumin 2.7. Currently in sinus rhythm. He is anticoagulated with Eliquis. Antibiotics in the form of Zosyn. The patient is seen today 03/07/2023 in follow-up in the intensive care unit. He is a bit more alert today. Still with garbled speech. Still waxing and waning. He is maintaining good O2 saturations in the upper 90s on room air. He's currently afebrile. Hemodynamically stable. Urine and blood, cerebrospinal fluid and follow up blood cultures have all revealed no growth. Testing positive for West Nile. 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 Moderate focal spinal canal stenosis. Continues to receive IVIG. [place] on Zosyn. Remains on vitamin supplements. Anticoagulated with Eliquis. Nasogastric tube remains in place. He is on vital AF at 83 ML's per hour which is goal. Progress note dated 03/08/2023. 77-year-old male that we have been seen in the intensive care unit, the entire week. The patient did test positive for West Nile virus. The patient's primary issue was that of encephalopathy, which has been slowly improving. Currently, the patient is seen in room 354. He is getting vital high protein at 83 mL an hour, via an NG tube. The patient not on any supplemental oxygen, and is not receiving any additional fluids. Zosyn is discontinued. The patient did receive 3 doses of IVIG, as per infectious diseases. White count 11.9, hemoglobin 13.9, hematocrit 41.1, with a normal platelet count. Sodium 138, potassium 5.2, chlorides 107, CO2 22, BUN 27 and creatinine 0.70. On today's evaluation of 2022, I'm seeing the patient for a follow-up. The patient is still lethargic, difficult to to communicate with. Nevertheless, upon repeated stimulation, he is able to follow some simple commands. He is calm and comfortable. Resting comfortably in bed. No signs of any overt respiratory distress. No fever. No seizure activity. The patient is h emodynamically stable. The patient is receiving enteral feeding for nutritional support and the patient is currently on vitamin HP at the rate of 83 mL an hour. The patient has completed 3 doses of IVIG treatment. Neurology is on the case. Infectious diseases also on the case. The patient remains on Keppra 750 mg IV every 12 hours. The patient is afebrile. The blood work shows a dull discom fort 13.5, he was 14.5 and a platelet count of 221. BUN is at 30 with a creatinine of 0.7 and a sodium level is at 138. Glucose at 124. On 03/10/2023, the patient's condition is essentially unchanged. Lethargic, , encephalopathic, occasionally following some simple commands although his responses not consistent. Continues to receive enteral feeding for nutritional support. NG tube is in place. No fever. No chills. No other complaints. Electrolytes show a potassium level of 5.5, sodium is at 136, BUN is a 50 with a creatinine of 0.8. LFTs are within normal limits. The patient is on Cozaar for blood pressure control 25 mg by mouth daily. The patient is also taking Cardizem 30 mg by mouth 3 times a day. The patient remains on Keppra. Neurology on the case. The patient is on normal saline at rate of 20 mL an hour. On today's evaluation of 03/11/2023, the patient is noted to be slightly more awake compared to yesterday. He is answering questions by saying yes and no. No focal neurological deficits. No seizure activity. No fever. His swallow evaluation to be done today. Meanwhile, the patient still has an NG tube in place for enteral feeding and nutritional support. No other new complaints otherwise for now. I do feel that neurologically the patient is more alert. BUN is 41 with a creatinine of 0.7, the patient is a 16.8 with a hemoglobin 13.9. Objective - Vital Signs Vital signs: Vital Signs Temp 97.8 F 03/11/23 04:59 Pulse 70 03/11/23 04:59 Resp 16 03/11/23 04:59 BP 113/65 03/11/23 04:59 Pulse Ox 98 03/11/23 04:59 FiO2 50 03/05/23 08:14 Intake & Output 03/10/23 03/11/23 03/11/23 18:59 06:59 18:59 Intake Total 724 Output Total 400 850 550 Balance 324 -850 -550 Weight 99.9 kg 92 kg Intake: Tube Feeding 664 Other 60 Output: Urine 400 850 550 Other: Voiding Method External Catheter External Catheter - Exam No acute distress, calm and comfortable without any agitation The patient is less drowsy compared to yesterday and does arouse. NG tube is noted. HEENT examination is grossly unremarkable. Mucous membranes are dry. Neck supple. Full range of motion. No adenopathy thyromegaly or neck vein distention. Cardiovascular examination reveals regular rhythm rate. S1-S2 normal. No S3 or S4. No discernible murmur noted. Lungs reveal clear breath sounds. Breath sounds are equal bilaterally. No adventitious lung sounds including wheezes rhonchi or crackles. Abdomen soft bowel sounds are heard. No masses or tenderness. Extremities are intact. No cyanosis clubbing or edema. Skin is without rash or lesion. Neurologic examination is awake, encephalopathy is slightly improved and the patient seems to much more alert and moving all 4 extremities. - Labs CBC & Chem 7: 03/11/23 07:02 03/11/23 07:02 Labs: Abnormal Lab Results - Last 24 Hours (Table) 03/10/23 03/10/23 03/11/23 Range/Units 12:24 18:11 00:04 WBC (3.8-10.6) k/uL RBC (4.30-5.90) m/uL Neutrophils # (1.3-7.7) k/uL Monocytes # (0-1.0) k/uL BUN (9-20) mg/dL POC Glucose (mg/dL) 116 H 114 H (70-110) mg/dL Total Bilirubin (0.2-1.3) mg/dL ALT (4-49) U/L Urine Protein Trace H (Negative) Ur Leukocyte Esterase Small H (Negative) Amorphous Sediment Rare H (None) /hpf Urine Bacteria Rare H (None) /hpf Urine Mucus Rare H (None) /hpf 03/11/23 03/11/23 Range/Units 07:02 07:02 WBC 16.8 H (3.8-10.6) k/uL RBC 4.17 L (4.30-5.90) m/uL Neutrophils # 13.4 H (1.3-7.7) k/uL Monocytes # 1.4 H (0-1.0) k/uL BUN 41 H (9-20) mg/dL POC Glucose (mg/dL) (70-110) mg/dL Total Bilirubin 1.5 H (0.2-1.3) mg/dL ALT 62 H (4-49) U/L Urine Protein (Negative) Ur Leukocyte Esterase (Negative) Amorphous Sediment (None) /hpf Urine Bacteria (None) /hpf Urine Mucus (None) /hpf Assessment and Plan Plan: Encephalopathy, secondary to the West Nile virus. Initiated on IVIG 3 doses. 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 Leukocytosis, resolved, possible aspiration pneumonia. Patient has completed Zosyn therapy. Acute rhabdomyolysis, significantly elevated CPK, improving with hydration, CPK is down to 719. Elevated LFTs, ultrasound showed hepatomegaly. Elevated troponins, possibly related to supply/demand mismatch. Atrial fibrillation with rapid ventricular response. The rate is currently controlled and the patient is currently on beta blockers and anticoagulation with Eliquis. Plan: Monitor neurological outcome, neurologically more awake compared to yesterday We'll do a swallow evaluation and if he is able to swallow, we'll remove the NG tube Meanwhile continue enteral feeding for nutritional support via an NG tube Continue Keppra, no signs of any ongoing seizure activity Neurology and on the case Labs were noted and are all stable Continue oral Cardizem Continue oral metoprolol Continue anticoagulation with Eliquis Patient is currently on room air oxygen We'll continue to follow
[2023-03-11 16:38] LABS: Glucose,Whole Blood 108 mg/dL (70-110)
--- NOTE | 2023-03-11 17:02 | P.PN ---
Subjective Progress Note Date: 03/11/23 Principal diagnosis: Fever Patient is a 77-year-old male presenting to the hospital after the patient was found to be unresponsive by the , patient has been febrile initial testing negative including LP which was only mildly elevated protein. On today's evaluation that is 03/11/2023, the patient remains to be afebrile, , the patient is breathing comfortably on room air with no need for supplemental oxygen , the patient did respond to his name but no further response, the patient did have NG for feeding no vomiting no diarrhea or any other changes reported by the nursing staff patient white count is down to 16.8, creatinine is 0.72, UA is negative, procal citonin is pending, chest x-ray with significant improvement in the appearance of the interstitium and previous left basal opacity Objective - Vital Signs Vital signs: Vital Signs Temp 98.2 F 03/11/23 08:00 Pulse 80 03/11/23 08:00 Resp 20 03/11/23 08:00 BP 126/69 03/11/23 08:00 Pulse Ox 95 03/11/23 08:00 FiO2 50 03/05/23 08:14 Intake & Output 03/10/23 03/11/23 03/11/23 18:59 06:59 18:59 Intake Total 724 Output Total 400 850 550 Balance 324 -850 -550 Weight 99.9 kg 92 kg Intake: Tube Feeding 664 Other 60 Output: Urine 400 850 550 Other: Voiding Method External Catheter External Catheter External Catheter - Exam GENERAL DESCRIPTION: An elderly male lying in bed in no distress RESPIRATORY SYSTEM: Unlabored breathing , coarse breath sounds bilaterally HEART: S1 S2 regular rate and rhythm , ABDOMEN: Soft , no tenderness EXTREMITIES: No edema feet - Labs CBC & Chem 7: 03/11/23 07:02 03/11/23 07:02 Labs: Abnormal Lab Results - Last 24 Hours (Table) 03/10/23 03/10/23 03/11/23 Range/Units 12:24 18:11 00:04 WBC (3.8-10.6) k/uL RBC (4.30-5.90) m/uL Neutrophils # (1.3-7.7) k/uL Monocytes # (0-1.0) k/uL BUN (9-20) mg/dL POC Glucose (mg/dL) 116 H 114 H (70-110) mg/dL Total Bilirubin (0.2-1.3) mg/dL ALT (4-49) U/L Urine Protein Trace H (Negative) Ur Leukocyte Esterase Small H (Negative) Amorphous Sediment Rare H (None) /hpf Urine Bacteria Rare H (None) /hpf Urine Mucus Rare H (None) /hpf 03/11/23 03/11/23 Range/Units 07:02 07:02 WBC 16.8 H (3.8-10.6) k/uL RBC 4.17 L (4.30-5.90) m/uL Neutrophils # 13.4 H (1.3-7.7) k/uL Monocytes # 1.4 H (0-1.0) k/uL BUN 41 H (9-20) mg/dL POC Glucose (mg/dL) (70-110) mg/dL Total Bilirubin 1.5 H (0.2-1.3) mg/dL ALT 62 H (4-49) U/L Urine Protein (Negative) Ur Leukocyte Esterase (Negative) Amorphous Sediment (None) /hpf Urine Bacteria (None) /hpf Urine Mucus (None) /hpf Assessment and Plan (1) Fever Current Visit: Yes Status: Acute Code(s): R50.9 - FEVER, UNSPECIFIED SNOMED Code(s): 215762763 (2) Pneumonia Current Visit: Yes Status: Acute Code(s): J18.9 - PNEUMONIA, UNSPECIFIED ORGANISM SNOMED Code(s): 190013426 (3) West Nile Virus infection Current Visit: Yes Status: Acute Code(s): A92.30 - WEST NILE VIRUS INFECTION, UNSPECIFIED SNOMED Code(s): 599350681 Plan: 1patient with SIRS in this patient with a fever elevated white count tachycardia with significant mental status changes high clinical suspicious for possible encephalitis/meningitis ,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, the treatment is mostly supportive this has been discussed in detail with the daughter at the bedside who asked for antiviral treatment, currently no studies support the use of ribavirin or acyclovir, steroids is also questionable, there is some role for immunoglobulin infusion , which patient has already received 2 patient also have a congested cough and question of possible aspiration pneumonitis, for which the patient has completed a course of Zosyn, patient chest x-ray repeated on 03/10/2023 did shows overall resolution of the left basal opacity in no acute infiltrate 3 leukocytosis likely related to oropharyngeal candidiasis as a white count did trend down with the addition of Diflucan which should be continued and monitor clinical course closely Family the bedside questions were answered Dictation was produced using [employer] software. please excuse any grammatical, word or spelling errors. Time with Patient: Less than 30
[2023-03-11] MEDS: SODIUM CHLORIDE 0.9% 1,000 ML IV SCH (17:12)
[2023-03-11 18:00] LABS: Glucose,Whole Blood 100 mg/dL (70-110)
[2023-03-12 00:12] LABS: Glucose,Whole Blood 114 mg/dL (70-110)
[2023-03-12 06:11] LABS: Glucose,Whole Blood 105 mg/dL (70-110)
[2023-03-12 07:53] LABS: HCT 39.4 % (39.0-53.0); HGB 13.2 gm/dL (13.0-17.5); MCHC 33.5 g/dL (31.0-37.0); MCV 98.5 fL (80.0-100.0); Mean Platelet Volume 9.2; Platelet Count 245 k/uL (150-450); RDW 13.6 % (11.5-15.5); WBC 17.4 k/uL (3.8-10.6)
[2023-03-12 08:17] LABS: ALT 66 U/L (4-49); AST 43 U/L (17-59); African American GFR (CKD) >90 (>60 ml/min/1.73 sqM); Albumin 3.4 g/dL (3.5-5.0); Alkaline Phosphatase 59 U/L (38-126); Anion Gap 10 mmol/L; Blood Urea Nitrogen 37 mg/dL (9-20); Calcium 8.9 mg/dL (8.4-10.2); Carbon Dioxide 23 mmol/L (22-30); Chloride 104 mmol/L (98-107); Glucose 112 mg/dL (74-99); Non-African American GFR(CKD) 86 (>60 ml/min/1.73 sqM); Potassium 4.9 mmol/L (3.5-5.1); Sodium 137 mmol/L (137-145); Total Bilirubin 1.3 mg/dL (0.2-1.3); Total Protein 7.3 g/dL (6.3-8.2)
--- NOTE | 2023-03-12 08:48 | P.PN ---
Subjective Progress Note Date: 03/12/23 Principal diagnosis: Altered mental status This is a 77-year-old male who presented to the ER with concerns of altered mental status. His had found him on the ground prior to coming to the ER. He was placed in ICU, has had tachycardia with hypotension. He also continues t o have intermittent fevers. Workup for bacterial meningitis was negative. EEG was negative for seizure activity. Further workup still in progress. Patient still has a white count today. He is seen laying in bed in the ICU this morning, in no acute distress. 03/02/2023 Patient is seen and evaluated sitting up in bed in ICU. Over the weekend patient developed atrial fibrillation with RVR. He remains on a heparin drip. Patient also began to be more alert over the weekend, responds to verbal commands, does have garbled speech. Neurology has ordered an MRI of the brain. 03/05/2023 Patient is seen and evaluated laying in bed in ICU. He continues to be not very arousable, not alert today. Speech remains garbled. Labs have come back showing West Nile virus, infectious disease already consulted, await their recommendations. 03/09/2023 Patient is seen and evaluated on step-down unit. He did receive 3 doses of IVIG. NG tube and feeding still in place. Speech still garbled, he is arousable though and able to follow simple commands 03/10/2023 Patient is seen and evaluated on step-down unit. White count elevated today, no fever. Chest XR pending. Patient looks more restless in the bed today. 03/12/2023 Patient seen and evaluated laying in bed this morning. He is more alert today, speech is still garbled. His white count is trending down. Objective - Vital Signs Vital signs: Vital Signs Temp 98.2 F 03/12/23 04:50 Pulse 80 03/12/23 04:50 Resp 18 03/12/23 04:50 BP 117/60 03/12/23 04:50 Pulse Ox 95 03/12/23 04:50 FiO2 50 03/05/23 08:14 Intake & Output 03/11/23 03/12/23 03/12/23 18:59 06:59 18:59 Intake Total 1033 Output Total 1050 600 Balance -17 600 Intake: IV 120 Sodium Chloride 0.9% 1, 120 000 ml @ 20 mls/hr IV . [facility] Rx#:[id number] Tube Feeding 913 Output: Urine 1050 600 Other: Voiding Method External Catheter External Catheter # Bowel Movements 1 - Constitutional General appearance: Present: cooperative, no acute distress - Neck Neck: Present: normal ROM. Absent: lymphadenopathy, rigidity - Respiratory Respiratory: bilateral: diminished - Cardiovascular Heart sounds: normal: S1, S2 - Gastrointestinal General gastrointestinal: Present: soft. Absent: tenderness - Musculoskeletal Musculoskeletal: Present: generalized weakness - Labs CBC & Chem 7: 03/12/23 07:11 03/12/23 07:11 Labs: Abnormal Lab Results - Last 24 Hours (Table) 03/12/23 03/12/23 03/12/23 Range/Units 00:10 07:11 07:11 WBC 17.4 H (3.8-10.6) k/uL RBC 4.00 L (4.30-5.90) m/uL BUN 37 H (9-20) mg/dL Glucose 112 H (74-99) mg/dL POC Glucose (mg/dL) 114 H (70-110) mg/dL ALT 66 H (4-49) U/L Albumin 3.4 L (3.5-5.0) g/dL Microbiology - Last 24 Hours (Table) 03/10/23 10:10 Blood Culture - Preliminary Blood Assessment and Plan (1) Altered mental status Current Visit: Yes Status: Acute Code(s): R41.82 - ALTERED MENTAL STATUS, UNSPECIFIED SNOMED Code(s): 918739688 (2) Pneumonia Current Visit: Yes Status: Acute Code(s): J18.9 - PNEUMONIA, UNSPECIFIED ORGANISM SNOMED Code(s): 345647042 (3) Septic shock Current Visit: Yes Status: Acute Code(s): A41.9 - SEPSIS, UNSPECIFIED ORGANISM; R65.21 - SEVERE SEPSIS WITH SEPTIC SHOCK SNOMED Code(s): 77464318 (4) Atrial fibrillation Current Visit: Yes Status: Acute Code(s): I48.91 - UNSPECIFIED ATRIAL FIBRILLATION SNOMED Code(s): 59612465 (5) West Nile Virus infection Current Visit: Yes Status: Acute Code(s): A92.30 - WEST NILE VIRUS INFECTION, UNSPECIFIED SNOMED Code(s): 526144369 Plan: CBC and CMP in the morning. Patient seen and evaluated by nurse practitioner, physician in agreement with plan
[2023-03-12] MEDS: DILTIAZEM ORAL 30 MG TAB PO SCH ×3 (09:27→20:05)
[2023-03-12] MEDS: LOSARTAN 25 MG TAB PO SCH (09:27)
[2023-03-12] MEDS: levETIRAcetam IV 500 MG/5 ML VIAL IVP SCH ×2 (09:27→20:06)
[2023-03-12] MEDS: PANTOPRAZOLE 40 MG/10 ML VIAL IVP SCH (09:27)
[2023-03-12] MEDS: METOPROLOL TARTRATE 50 MG TAB PO SCH ×3 (09:27→20:05)
[2023-03-12] MEDS: FLUCONAZOLE 100 MG TAB PO SCH (09:28)
[2023-03-12] MEDS: APIXABAN 5 MG TAB PO SCH ×2 (09:28→20:05)
[2023-03-12] MEDS: ZINC SULFATE 220 MG CAP PO SCH (09:28)
[2023-03-12] MEDS: ASCORBIC ACID 500 MG TAB PO SCH (09:28)
[2023-03-12] MEDS: LACTOBACILLUS ACIDOPHILUS/PECT 1 EACH CAPSULE PO SCH ×3 (09:28→20:05)
[2023-03-12] MEDS: CHOLECALCIFEROL 125 MCG (5000 IU) TABLET PO SCH (09:28)
[2023-03-12] MEDS: SODIUM CHLORIDE 0.9% 1,000 ML IV SCH (09:59)
[2023-03-12 12:12] LABS: Glucose,Whole Blood 107 mg/dL (70-110)
--- NOTE | 2023-03-12 12:15 | P.PN ---
Subjective Progress Note Date: 03/12/23 The patient is seen today 03/04/2023 in follow-up in the intensive care unit. Currently maintaining good O2 saturations in the 90s on 3 L/m per nasal cannula. Remains on Cardizem drip at 5 mg per hour. Normal saline at 20 ML's per hour. He is being nourished via nasogastric tube with vital AF at 75 ML's per hour with a goal of 83 ML's per hour. He did utilize BiPAP last night 19/01 and 50% FiO2. He had some episodes of atrial fibrillation with RVR again. He also had an episode of respiratory distress. Arterial blood gases revealed a pO2 of 225, pCO2 40 and a pH of 7.48. Chest x-ray did not reveal any acute changes. He remains slow to respond. His speech remains quite garbled. Currently in atrial fibrillation with a controlled ventricular rate. Sodium 140. Potassium 3.5. Bicarb 30. BUN 19. Creatinine 0.66. AST 84. ALT 92. The patient is seen today 03/05/2023 in follow-up in the intensive care unit. Neurologically remains about the same. Arousable, garbled speech. Afebrile. Maintaining good O2 saturations in the 90s on room air. Blood cultures, urine culture, cerebrospinal fluid cultures and repeat blood cultures have all been negative. 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 White count 10.0. Hemoglobin 12.9. Platelets 173. Sodium 139. Potassium 4.1. Bicarb 30. BUN 21. Creatinine 0.83. Glucose 100. Pro-calcitonin 0.07. He is currently on Zo syn per ID service. Normal saline at KVO. He is being nourished via nasogastric tube with vital AF at 83 ML's per hour which is goal. He remains in atrial fibrillation. He is on beta blockers and anticoagulated with Eliquis. The patient is seen today 03/06/2023 in follow-up in the intensive care unit. He is arousable. Able to state his name. Continues with garbled speech. Somewhat slow to respond. He is maintaining good O2 saturations in the 90s on room air. He has normal saline at 20 ML's per hour. Mean #nourished via nasogastric tube with vital AF at 83 ML's per hour which is goal. He was initiated on IVIG yesterday and the plan is for a total of 3 doses. His IgG2 was 172. IgE 338. He was also initiated on vitamins and probiotics. He is going for a MRI of the C-spine today per neurology. White count 8.6. Hemoglobin 12.7. Sodium 140. Potassium 4.2. Bicarb 26. BUN 22. Creatinine 0.69. Glucose 121. AST 59. ALT 92. Albumin 2.7. Currently in sinus rhythm. He is anticoagulated with Eliquis. Antibiotics in the form of Zosyn. The patient is seen today 03/07/2023 in follow-up in the intensive care unit. He is a bit more alert today. Still with garbled speech. Still waxing and waning. He is maintaining good O2 saturations in the upper 90s on room air. He's currently afebrile. Hemodynamically stable. Urine and blood, cerebrospinal fluid and follow up blood cultures have all revealed no growth. Testing positive for West Nile. 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 Moderate focal spinal canal stenosis. Continues to receive IVIG. [place] on Zosyn. Remains on vitamin supplements. Anticoagulated with Eliquis. Nasogastric tube remains in place. He is on vital AF at 83 ML's per hour which is goal. Progress note dated 03/08/2023. 77-year-old male that we have been seen in the intensive care unit, the entire week. The patient did test positive for West Nile virus. The patient's primary issue was that of encephalopathy, which has been slowly improving. Currently, the patient is seen in room 354. He is getting vital high protein at 83 mL an hour, via an NG tube. The patient not on any supplemental oxygen, and is not receiving any additional fluids. Zosyn is discontinued. The patient did receive 3 doses of IVIG, as per infectious diseases. White count 11.9, hemoglobin 13.9, hematocrit 41.1, with a normal platelet count. Sodium 138, potassium 5.2, chlorides 107, CO2 22, BUN 27 and creatinine 0.70. On today's evaluation of 2022, I'm seeing the patient for a follow-up. The patient is still lethargic, difficult to to communicate with. Nevertheless, upon repeated stimulation, he is able to follow some simple commands. He is calm and comfortable. Resting comfortably in bed. No signs of any overt respiratory distress. No fever. No seizure activity. The patient is h emodynamically stable. The patient is receiving enteral feeding for nutritional support and the patient is currently on vitamin HP at the rate of 83 mL an hour. The patient has completed 3 doses of IVIG treatment. Neurology is on the case. Infectious diseases also on the case. The patient remains on Keppra 750 mg IV every 12 hours. The patient is afebrile. The blood work shows a dull discom fort 13.5, he was 14.5 and a platelet count of 221. BUN is at 30 with a creatinine of 0.7 and a sodium level is at 138. Glucose at 124. On 03/10/2023, the patient's condition is essentially unchanged. Lethargic, , encephalopathic, occasionally following some simple commands although his responses not consistent. Continues to receive enteral feeding for nutritional support. NG tube is in place. No fever. No chills. No other complaints. Electrolytes show a potassium level of 5.5, sodium is at 136, BUN is a 50 with a creatinine of 0.8. LFTs are within normal limits. The patient is on Cozaar for blood pressure control 25 mg by mouth daily. The patient is also taking Cardizem 30 mg by mouth 3 times a day. The patient remains on Keppra. Neurology on the case. The patient is on normal saline at rate of 20 mL an hour. On today's evaluation of 03/11/2023, the patient is noted to be slightly more awake compared to yesterday. He is answering questions by saying yes and no. No focal neurological deficits. No seizure activity. No fever. His swallow evaluation to be done today. Meanwhile, the patient still has an NG tube in place for enteral feeding and nutritional support. No other new complaints otherwise for now. I do feel that neurologically the patient is more alert. BUN is 41 with a creatinine of 0.7, the patient is a 16.8 with a hemoglobin 13.9. On 03/12/2022, the neurologically condition of this patient is the same as yesterday. Obviously, he is awake and is doing some communication. This is minimal. He was unable to swallow and NG tube was kept in place. I believe that he may do better with a PEG tube insertion as the patient's neurologic recovery is not absolutely guaranteed and the patient may take a long time for recovery. As such, securing a PEG tube would be a reasonable option for this patient. The patient otherwise doing well. No specific complaints. No respiratory distress. His overall pulmonary status is stable and the patient is currently on room air oxygen with a pulse ox of 93%. Labs from today shows a white cell count of 17.4, hemoglobin 13, BUN is 37 with a creatinine of 0.7. Objective - Vital Signs Vital signs: Vital Signs Temp 98.2 F 03/12/23 04:50 Pulse 80 03/12/23 04:50 Resp 18 03/12/23 04:50 BP 117/60 03/12/23 04:50 Pulse Ox 95 03/12/23 04:50 FiO2 50 03/05/23 08:14 Intake & Output 03/11/23 03/12/23 03/12/23 18:59 06:59 18:59 Intake Total 1033 Output Total 1050 600 Balance -17 -600 Intake: IV 120 Sodium Chloride 0.9% 1, 120 000 ml @ 20 mls/hr IV . Q24H [facility] Rx#:[id number] Tube Feeding 913 Output: Urine 1050 600 Other: Voiding Method External Catheter External Catheter # Bowel Movements 1 - Exam No acute distress, calm and comfortable without any agitation The patient is less drowsy compared to yesterday and does arouse. NG tube is noted. HEENT examination is grossly unremarkable. Mucous membranes are dry. Neck supple. Full range of motion. No adenopathy thyromegaly or neck vein distention. Cardiovascular examination reveals regular rhythm rate. S1-S2 normal. No S3 or S4. No discernible murmur noted. Lungs reveal clear breath sounds. Breath sounds are equal bilaterally. No adventitious lung sounds including wheezes rhonchi or crackles. Abdomen soft bowel sounds are heard. No masses or tenderness. Extremities are intact. No cyanosis clubbing or edema. Skin is without rash or lesion. Neurologic examination is awake, encephalopathy is slightly improved and the patient seems to much more alert and moving all 4 extremities. - Labs CBC & Chem 7: 03/12/23 07:11 03/12/23 07:11 Labs: Abnormal Lab Results - Last 24 Hours (Table) 03/12/23 03/12/23 03/12/23 Range/Units 00:10 07:11 07:11 WBC 17.4 H (3.8-10.6) k/uL RBC 4.00 L (4.30-5.90) m/uL BUN 37 H (9-20) mg/dL Glucose 112 H (74-99) mg/dL POC Glucose (mg/dL) 114 H (70-110) mg/dL ALT 66 H (4-49) U/L Albumin 3.4 L (3.5-5.0) g/dL Microbiology - Last 24 Hours (Table) 03/10/23 10:10 Blood Culture - Preliminary Blood Assessment and Plan Plan: Encephalopathy, secondary to the West Nile virus. Initiated on IVIG 3 doses. The encephalopathy is gradually improving, yet overall recovery is very slow and full recovery is not guaranteed. Meanwhile, the patient continues to receive enteral feeding for decision support. Acute encephalitis secondary to West Nile virus infection, gradually improving Acute febrile illness and sepsis, no obvious infectious process identified yet, all cultures have been negative so far. Leukocytosis, resolved, possible aspiration pneumonia. Patient has completed Zosyn therapy. Acute rhabdomyolysis, significantly elevated CPK, improving with hydration, CPK is down to 719. Elevated LFTs, ultrasound showed hepatomegaly. Elevated troponins, possibly related to supply/demand mismatch. Atrial fibrillation with rapid ventricular response. The rate is currently controlled and the patient is currently on beta blockers and anticoagulation with Eliquis. Plan: Monitor neurological outcome, neurologically more awake, and this will be a very slow recovery and for recovery is not guaranteed. Unable to swallow and the patient is receiving any tube feeding for enteral feeding Consider PEG tube insertion and this should be inserted by the medical team Monitor the white cell count Continue Keppra, no signs of any ongoing seizure activity Neurology and on the case Labs were noted and are all stable Continue oral Cardizem Continue oral metoprolol Continue anticoagulation with Eliquis Patient is currently on room air oxygen We'll continue to follow
--- NOTE | 2023-03-12 12:41 | P.GSCN ---
History of Present Illness Consult date: 03/12/23 History of present illness: CHIEF COMPLAINT: Altered mental status HISTORY OF PRESENT ILLNESS: This is a 77-year-old male who presented with altered mental status and fevers. 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 Patient had been in the ICU. He was admitted to the hospital on 02/23/2023. He is currently on the cardiac floor. He is still lethargic. He has failed his swallow evaluation by speech therapy. He has an NG tube placed for tube feeds. Surgical service has been consulted for PEG tube placement. Patient has atrial fibrillation and is on Eliquis for anticoagulation. Last dose given this morning. No abdominal surgical history. PAST MEDICAL HISTORY: See below PAST SURGICAL HISTORY: See below MEDICATIONS: See below ALLERGIES: See below SOCIAL HISTORY: No illicit drug use. REVIEW OF SYSTEMS: CONSTITUTIONAL: Denies fever or chills. HEENT: Denies blurred vision, vision changes, or eye pain. Denies hemoptysis CARDIOVASCULAR: Denies chest pain or pressure. RESPIRATORY: No shortness of breath. GASTROINTESTINAL: See HPI for pertinent findings HEMATOLOGIC: Denies bleeding disorders. GENITOURINARY: Denies any blood in urine or increased urinary frequency. SKIN: Denies pruitis. Denies rash. PHYSICAL EXAM: VITAL SIGNS: Reviewed GENERAL: no acute distress. ABDOMEN: Soft. Nondistended. nontender NEUROLOGIC: lethargic LABORATORY DATA: WBC 17.4 HGB 13.2 plt 245 Na 137 K4.9 Cr 0.79 albumin 3.4 IMAGING: ASSESSMENT: 1. Dysphagia 2. Mild protein calorie malnutrition 3. Failed swallow eval 4. West Nile virus encephalitis PLAN: -Patient scheduled for PEG tube placement on 03/16/[address] Whipple -Hold Eliquis 48hours before procedure Thank you for this consultation Physician Dismantler note has been reviewed by physician. Signing provider agrees with the documented findings, assessment, and plan of care. Past Medical History Past Medical History: No Reported History Additional Past Medical History / Comment(s): Per EMS- patient has no significant medical history and does not take any medications. History of Any Multi-Drug Resistant Organisms: None Reported Past Surgical History: Joint Replacement Additional Past Surgical History / Comment(s): Knee replacement x 2 Past Anesthesia/Blood Transfusion Reactions: No Reported Reaction Past Psychological History: No Psychological Hx Reported Smoking Status: Former smoker Medications and Allergies Home Medications Medication Instructions Recorded Confirmed Type No Known Home Medications 02/23/23 02/23/23 History Allergies Allergy/AdvReac Type Severity Reaction Status Date / Time No Known Allergies Allergy Verified 02/23/23 12:32 Surgical - Exam Vital Signs Temp Pulse Resp BP Pulse Ox 98.4 F 93 18 143/87 97 02/23/23 11:27 02/23/23 11:27 02/23/23 11:27 02/23/23 11:27 02/23/23 11:27 Results - Labs 03/12/23 07:11 03/12/23 07:11 Abnormal Lab Results - Last 24 Hours (Table) 03/12/23 03/12/23 03/12/23 Range/Units 00:10 07:11 07:11 WBC 17.4 H (3.8-10.6) k/uL RBC 4.00 L (4.30-5.90) m/uL BUN 37 H (9-20) mg/dL Glucose 112 H (74-99) mg/dL POC Glucose (mg/dL) 114 H (70-110) mg/dL ALT 66 H (4-49) U/L Albumin 3.4 L (3.5-5.0) g/dL Microbiology - Last 24 Hours (Table) 03/10/23 10:10 Blood Culture - Preliminary Blood Diabetes panel 03/12/23 Range/Units 07:11 Sodium 137 (137-145) mmol/L Potassium 4.9 (3.5-5.1) mmol/L Chloride 104 (98-107) mmol/L Carbon Dioxide 23 (22-30) mmol/L BUN 37 H (9-20) mg/dL Creatinine 0.79 (0.66-1.25) mg/dL Glucose 112 H (74-99) mg/dL Calcium 8.9 (8.4-10.2) mg/dL AST 43 (17-59) U/L ALT 66 H (4-49) U/L Alkaline Phosphatase 59 (38-126) U/L Total Protein 7.3 (6.3-8.2) g/dL Albumin 3.4 L (3.5-5.0) g/dL Calcium panel 03/12/23 Range/Units 07:11 Calcium 8.9 (8.4-10.2) mg/dL Albumin 3.4 L (3.5-5.0) g/dL Pituitary panel 03/12/23 Range/Units 07:11 Sodium 137 (137-145) mmol/L Potassium 4.9 (3.5-5.1) mmol/L Chloride 104 (98-107) mmol/L Carbon Dioxide 23 (22-30) mmol/L BUN 37 H (9-20) mg/dL Creatinine 0.79 (0.66-1.25) mg/dL Glucose 112 H (74-99) mg/dL Calcium 8.9 (8.4-10.2) mg/dL Adrenal panel 03/12/23 Range/Units 07:11 Sodium 137 (137-145) mmol/L Potassium 4.9 (3.5-5.1) mmol/L Chloride 104 (98-107) mmol/L Carbon Dioxide 23 (22-30) mmol/L BUN 37 H (9-20) mg/dL Creatinine 0.79 (0.66-1.25) mg/dL Glucose 112 H (74-99) mg/dL Calcium 8.9 (8.4-10.2) mg/dL Total Bilirubin 1.3 (0.2-1.3) mg/dL AST 43 (17-59) U/L ALT 66 H (4-49) U/L Alkaline Phosphatase 59 (38-126) U/L Total Protein 7.3 (6.3-8.2) g/dL Albumin 3.4 L (3.5-5.0) g/dL
[2023-03-12] MEDS: AMOXIC-POT CLAV 875-125MG 1 EACH TAB NG-TUBE SCH ×2 (14:07→20:09)
--- NOTE | 2023-03-12 14:50 | P.PN ---
Subjective Progress Note Date: 03/12/23 Principal diagnosis: Fever Patient is a 77-year-old male presenting to the hospital after the patient was found to be unresponsive by the , patient has been febrile initial testing negative including LP which was only mildly elevated protein. On today's evaluation that is 03/12/2023, the patient continuesto be afebrile, , the patient is breathing comfortably on room a, the patient is slightly lethargic today and did not answer any question, the patient did have NG for feeding no vomiting no diarrhea or any other changes reported by the nursing staff patient white count is slightly up to 17.4 , creatinine is 0.79, UA is negative, procalcitonin is pending, chest x-ray with significant improvement in the appearance of the interstitium and previous left basal opacity Objective - Vital Signs Vital signs: Vital Signs Temp 99.4 F 03/12/23 08:00 Pulse 82 03/12/23 08:00 Resp 18 03/12/23 08:00 BP 106/54 03/12/23 08:00 Pulse Ox 93 L 03/12/23 08:00 FiO2 50 03/05/23 08:14 Intake & Output 03/11/23 03/12/23 03/12/23 18:59 06:59 18:59 Intake Total 1033 Output Total 1050 600 Balance -17 -600 Intake: IV 120 Sodium Chloride 0.9% 1, 120 000 ml @ 20 mls/hr IV . Q24H [facility] Rx#:[id number] Tube Feeding 913 Output: Urine 1050 600 Other: Voiding Method External Catheter External Catheter External Catheter # Bowel Movements 1 - Exam GENERAL DESCRIPTION: An elderly male lying in bed in no distress RESPIRATORY SYSTEM: Unlabored breathing , coarse breath sounds bilaterally HEART: S1 S2 regular rate and rhythm , ABDOMEN: Soft , no tenderness EXTREMITIES: No edema feet - Labs CBC & Chem 7: 03/12/23 07:11 03/12/23 07:11 Labs: Abnormal Lab Results - Last 24 Hours (Table) 03/12/23 03/12/23 03/12/23 Range/Units 00:10 07:11 07:11 WBC 17.4 H (3.8-10.6) k/uL RBC 4.00 L (4.30-5.90) m/uL BUN 37 H (9-20) mg/dL Glucose 112 H (74-99) mg/dL POC Glucose (mg/dL) 114 H (70-110) mg/dL ALT 66 H (4-49) U/L Albumin 3.4 L (3.5-5.0) g/dL Microbiology - Last 24 Hours (Table) 03/10/23 10:10 Blood Culture - Preliminary Blood Assessment and Plan (1) Fever Current Visit: Yes Status: Acute Code(s): R50.9 - FEVER, UNSPECIFIED SNOMED Code(s): 999121816 (2) Pneumonia Current Visit: Yes Status: Acute Code(s): J18.9 - PNEUMONIA, UNSPECIFIED ORGANISM SNOMED Code(s): 032688751 (3) West Nile Virus infection Current Visit: Yes Status: Acute Code(s): A92.30 - WEST NILE VIRUS INFECTION, UNSPECIFIED SNOMED Code(s): 584587463 Plan: 1patient with SIRS in this patient with a fever elevated white count tachycardia with significant mental status changes high clinical suspicious for possible encephalitis/meningitis ,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, the treatment is mostly supportive this has been discussed in detail with the daughter at the bedside who asked for antiviral treatment, currently no studies support the use of ribavirin or acyclovir, steroids is also questionable, there is some role for immunoglobulin infusion , which patient has already received 2 leukocytosis likely related to oropharyngeal candidiasis plus minus a component of sinusitis as the patient did have NG for more than 10 days now we will add Augmentin to continue with the Diflucan and repeat a CBC tomorrow Family the bedside questions were answered Dictation was produced using [id number] dictation software. please excuse any grammatical, word or spelling errors. Time with Patient: Less than 30
--- NOTE | 2023-03-12 16:56 | P.CONS ---
History of Present Illness - Reason for Consult Consult date: 03/12/23 rehab recommendations - Chief Complaint debility - History of Present Illness Mr. Avelar is a 77 y.o., right handed, male, who lives in a 2 story home, with 8 KRYSTIN. Prior to admission, he was ambulating without an assistive device. He was independent for basic/advanced ADLs. Current driving: yes. Retired: yes. Support system: , Family He was admitted to [facility] on 02/23. He presented to the ED via EMS with change in mental status. Patient was found on the ground the morning of arrival by his . In the EC his white count was elevated, lactic acid of 4, elevated troponin. Tested negative for influenza type a and B, RSV and COVID. Chest x-ray showed possible pneumonia. Blood cultures were collected which were negative, IV antibiotics were ordered. UA was collected and was negative. Urine culture was negative. CT of the brain showed nothing acute. patient was admitted to the ICU with pneumonia and sepsis/septic shock. Consults to cardiology, neurology and infectious disease were placed. Patient was also seen by pulmonology who had concerns for possible meningitis and West Nile virus. Patient had a work-up for meningitis including lumbar puncture which was ruled out. Eventually the West Nile virus panel came back positive. There was also concern for seizure like activity in the hospital, EEG was ordered. EEG revealed findings suggestive of encephalopathy with no indication of seizures. Patient had an ultrasound of the abdomen and pelvis completed due to elevated LFTs which showed sludge in the gallbladder with hepatomegaly, ot herwise it was a limited exam. Hepatitis panel was negative. During his hospital stay he also had an episode of atrial fibrillation with RVR was started on Cardizem and heparin drip. He failed a swallow study and had an NG tube inserted for feeding. 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 Orthopedic was consulted and determined that the cervical changes were likely chronic in nature no acute emergent/urgent changes of the cervical spine. 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 PM&R consulted for rehab recommendations. Therapy evaluations reviewed; patient needing total assist for bathing, total assist for UB dressing, no ability to demonstrate LB dressing, total assist for grooming, assist for toileting, assist for bed mobility 03/12/2023:patient was found in bed with HOB elevated and and daughter at bedside. Patient is lethargic, opens eyes momentarily to repeated name calling and light touch. Patient non verbal at this time. He is not able to respond to/answer questions. He appears comfortable. He does not appear to be in pain. Urinary device in place. NG tube in place. Spoke with family and explained rehabilitation options at discharge. Explained that in the patients current state he is not a candidate for IPR. Also, explained that we will follow with the patient to assess progress and most fitting rehabilitation plan at dis charge. Review of Systems negative unless noted in HPI Past Medical History Past Medical History: No Reported History Additional Past Medical History / Comment(s): Per EMS- patient has no significant medical history and does not take any medications. History of Any Multi-Drug Resistant Organisms: None Reported Past Surgical History: Joint Replacement Additional Past Surgical History / Comment(s): Knee replacement x 2 Past Anesthesia/Blood Transfusion Reactions: No Reported Reaction Past Psychological History: No Psychological Hx Reported Smoking Status: Former smoker Medications and Allergies Home Medications Medication Instructions Recorded Confirmed Type No Known Home Medications 02/23/23 02/23/23 History Allergies Allergy/AdvReac Type Severity Reaction Status Date / Time No Known Allergies Allergy Verified 02/23/23 12:32 Physical Exam Vitals: Vital Signs Temp Pulse Resp BP Pulse Ox 03/12/23 12:00 98.5 F 70 18 108/56 94 L 03/12/23 08:00 99.4 F 82 18 106/54 93 L 03/12/23 04:50 98.2 F 80 18 117/60 95 03/12/23 03:13 64 03/11/23 23:32 97.9 F 64 18 108/63 91 L 03/11/23 20:00 98.2 F 74 18 110/62 90 L 03/11/23 16:33 98.2 F 72 20 106/64 95 Intake and Output 03/11/23 03/12/23 03/12/23 22:59 06:59 14:59 Intake Total 1033 332 Output Total 500 600 Balance 533 -600 332 Intake: IV 120 Sodium Chloride 0.9% 1, 120 000 ml @ 20 mls/hr IV . Q24H [facility] Rx#:[id number] Tube Feeding 913 332 Output: Urine 500 600 Other: Voiding Method External Catheter External Catheter External Catheter # Bowel Movements 1 1 EXAM: limited due to patients lethargy and resistance to PROM and touch, rigidity. He appears agitated when exam attempted. He is clenching fists, flexing arms and extending legs when trying to assess. He appears very strong. General: WDWN, lethargic male, NAD Head: Normocephalic, atraumatic. Eyes: unable to assess, patient resisting opening of eyes Ears: Symmetric. Hearing within normal limits (responds to repeated calling of name) Mouth: Clear/dry Neck: stiff/rigid Cardiac: awake overnight monitor in place. Calves supple, non tender, trace bilat LE edema Lungs: Breathing comfortably on RA. Chest symmetric. Abdomen: Soft, nontender. NG tube in place Extremities: Arthritic changes consistent with age. bilateral SCD's in place with bilat heel pressure relieving boots Neurological: Alert and oriented x 0. responds at times to repeated name calling and touch Speech non verbal Cranial nerves: unable to assess Sensation:unable to assess, patient responds to repeated touch at times Musculoskeletal: unable to assess, patient will not follow commands, resistant to movement and is rigid MMT UE Sh Abd EE EF FABD WE HG Right NT NT NT NT NT NT Left NT NT NT NT NT NT MMT LE HF KE DF EHL Right NT NT NT NT Left NT NT NT NT Reflexes Biceps Triceps Brachioradialis Patella Achilles Babinski Hoffmans Right NT NT NT NT Left NT NT NT NT Skin: Skin intact where visible to head, neck, and bilateral upper and lower extremities EXCEPT:PIV x 2 Psych: Calm, cooperative Results CBC & Chem 7: 03/12/23 07:11 03/12/23 07:11 Labs: Abnormal Lab Results - Last 24 Hours (Table) 03/12/23 03/12/23 03/12/23 Range/Units 00:10 07:11 07:11 WBC 17.4 H (3.8-10.6) k/uL RBC 4.00 L (4.30-5.90) m/uL BUN 37 H (9-20) mg/dL Glucose 112 H (74-99) mg/dL POC Glucose (mg/dL) 114 H (70-110) mg/dL ALT 66 H (4-49) U/L Albumin 3.4 L (3.5-5.0) g/dL Microbiology - Last 24 Hours (Table) 03/10/23 10:10 Blood Culture - Preliminary Blood Assessment and Plan Assessment: #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, pneumonia, sepsis, sepsis shock #West Nile virus encephalopathy -IVIG x3 doses #Altered mental status secondary to above #Gait impairment/decline in ADLs secondary to above #Rule out seizures -EEG suggestive of encephalopathy with no indication of seizures -Patient remains on Keppra #Pneumonia -Augmentin #Acute hypoxic respiratory failure secondary to above -03/12/23: now on room air #Elevated troponins secondary to supply/demand mismatch #Rhabdomyolysis -Improving #Elevated LFTs -Hepatitis panel negative, ultrasound showing sludge of the gallbladder and hepatomegaly #Atrial fibrillation with RVR -Rate now controlled on beta-blockers, anticoagulated with Eliquis, Cardizem #Anxiety -Ativan # Bowel/ Bladder: Nursing to monitor and report concerns if any. -03/12/23: urinary collection system in use # Diet-n.p.o., failed swallow study -Currently tube fed vital AF 1.2 continuous feeding # Skin/wound: Skin/Wound care to follow as needed # Pain Management -Tylenol 650 mg every 4 hours as needed # DVT Prophylaxis: -Eliquis # Comorbidities: No significant medical history was not on any home medications at time of admission # Your medical dx and mgt Goals: Modified Independent mobility and ADLS both basic and advanced; increased functional mobility/strength; increased balance, safety, endurance. Improvement in medical issues through your care. Barriers: Infection, pain, cognition, lethargy Discharge recommendation: will continue to monitor and assess progress. Further recommendations to be determined at follow up assessment. Will reassess early next week. Patient seen and examined in coordination with Dr. Zacarias via video/audio telemedicine Author: Sherly Chong NP
[2023-03-12 18:20] LABS: Glucose,Whole Blood 117 mg/dL (70-110)
[2023-03-13 00:26] LABS: Glucose,Whole Blood 106 mg/dL (70-110)
[2023-03-13 05:53] LABS: Glucose,Whole Blood 117 mg/dL (70-110)
[2023-03-13 07:33] LABS: HCT 39.1 % (39.0-53.0); MCHC 33.3 g/dL (31.0-37.0); MCV 99.1 fL (80.0-100.0); Mean Platelet Volume 8.7; Platelet Count 218 k/uL (150-450); RBC 3.94 m/uL (4.30-5.90); RDW 13.7 % (11.5-15.5); WBC 15.4 k/uL (3.8-10.6)
[2023-03-13 07:54] LABS: ALT 62 U/L (4-49); AST 40 U/L (17-59); African American GFR (CKD) >90 (>60 ml/min/1.73 sqM); Albumin 3.4 g/dL (3.5-5.0); Alkaline Phosphatase 61 U/L (38-126); Blood Urea Nitrogen 36 mg/dL (9-20); Calcium 8.8 mg/dL (8.4-10.2); Carbon Dioxide 25 mmol/L (22-30); Chloride 103 mmol/L (98-107); Glucose 115 mg/dL (74-99); Non-African American GFR(CKD) 89 (>60 ml/min/1.73 sqM); Total Bilirubin 1.4 mg/dL (0.2-1.3); Total Protein 7.2 g/dL (6.3-8.2)
[2023-03-13 07:59] LABS: Anion Gap 8 mmol/L; Potassium 4.5 mmol/L (3.5-5.1); Sodium 136 mmol/L (137-145)
--- NOTE | 2023-03-13 08:23 | P.PN ---
Subjective Principal diagnosis: Altered mental status This is 77-year-old white male with no significant past medical history came in and septic shock and questionable pneumonia. He was significant tachycardia with hypotension and was placed in ICU for observation. He continues to have significant mental status changes. Question febrile seizure element. Temperature is improved IV Tylenol has been administered. Appreciate multiple consultants input. He seems slightly more alert. Objective - Vital Signs Vital signs: Vital Signs Temp 97.9 F 03/13/23 04:00 Pulse 79 03/13/23 04:00 Resp 18 03/13/23 04:00 BP 122/61 03/13/23 04:00 Pulse Ox 95 03/13/23 04:00 FiO2 50 03/05/23 08:14 Intake & Output 03/12/23 03/13/23 03/13/23 18:59 06:59 18:59 Intake Total 664 996 Output Total 750 650 Balance -86 346 Weight 92 kg Intake: Tube Feeding 664 996 Output: Urine 750 650 Other: Voiding Method External Catheter External Catheter # Bowel Movements 1 0 - Constitutional General appearance: Present: average body habitus - EENT Eyes: Absent: abnormal pupil - Neck Neck: Absent: lymphadenopathy - Respiratory Respiratory: bilateral: diminished - Cardiovascular Rhythm: regular Heart sounds: normal: S1, S2 Abnormal Heart Sounds: Absent: S3 Gallop - Gastrointestinal General gastrointestinal: Present: soft. Absent: tenderness - Psychiatric Psychiatric: Absent: A&O x's 3 - Labs CBC & Chem 7: 03/13/23 07:08 03/13/23 07:08 Labs: Abnormal Lab Results - Last 24 Hours (Table) 03/12/23 03/13/23 03/13/23 Range/Units 18:18 05:52 07:08 WBC 15.4 H (3.8-10.6) k/uL RBC 3.94 L (4.30-5.90) m/uL Sodium (137-145) mmol/L BUN (9-20) mg/dL Glucose (74-99) mg/dL POC Glucose (mg/dL) 117 H 117 H (70-110) mg/dL Total Bilirubin (0.2-1.3) mg/dL ALT (4-49) U/L Albumin (3.5-5.0) g/dL 03/13/23 Range/Units 07:08 WBC (3.8-10.6) k/uL RBC (4.30-5.90) m/uL Sodium 136 L (137-145) mmol/L BUN 36 H (9-20) mg/dL Glucose 115 H (74-99) mg/dL POC Glucose (mg/dL) (70-110) mg/dL Total Bilirubin 1.4 H (0.2-1.3) mg/dL ALT 62 H (4-49) U/L Albumin 3.4 L (3.5-5.0) g/dL Microbiology - Last 24 Hours (Table) 03/10/23 10:10 Blood Culture - Preliminary Blood Assessment and Plan (1) Altered mental status Current Visit: Yes Status: Acute Code(s): R41.82 - ALTERED MENTAL STATUS, UNSPECIFIED SNOMED Code(s): 194068187 (2) Pneumonia Current Visit: Yes Status: Acute Code(s): J18.9 - PNEUMONIA, UNSPECIFIED ORGANISM SNOMED Code(s): 319008918 (3) Septic shock Current Visit: Yes Status: Acute Code(s): A41.9 - SEPSIS, UNSPECIFIED ORGANISM; R65.21 - SEVERE SEPSIS WITH SEPTIC SHOCK SNOMED Code(s): 59969737 (4) West Nile fever Current Visit: Yes Status: Acute Code(s): A92.30 - WEST NILE VIRUS INFECTION, UNSPECIFIED SNOMED Code(s): 439918257 Plan: Continue supportive care. West Nile supportive care. IVIG has been given. We'll continue to follow Check CBC and CMP in a.m.
[2023-03-13] MEDS: METOPROLOL TARTRATE 50 MG TAB PO SCH ×3 (08:49→20:15)
[2023-03-13] MEDS: LACTOBACILLUS ACIDOPHILUS/PECT 1 EACH CAPSULE PO SCH ×3 (08:49→20:15)
[2023-03-13] MEDS: FLUCONAZOLE 100 MG TAB PO SCH (08:49)
[2023-03-13] MEDS: APIXABAN 5 MG TAB PO SCH ×2 (08:49→20:15)
[2023-03-13] MEDS: ZINC SULFATE 220 MG CAP PO SCH (08:49)
[2023-03-13] MEDS: CHOLECALCIFEROL 125 MCG (5000 IU) TABLET PO SCH (08:49)
[2023-03-13] MEDS: LOSARTAN 25 MG TAB PO SCH (08:49)
[2023-03-13] MEDS: DILTIAZEM ORAL 30 MG TAB PO SCH ×3 (08:49→20:14)
[2023-03-13] MEDS: ASCORBIC ACID 500 MG TAB PO SCH (08:49)
[2023-03-13] MEDS: levETIRAcetam IV 500 MG/5 ML VIAL IVP SCH (08:50)
[2023-03-13] MEDS: PANTOPRAZOLE 40 MG/10 ML VIAL IVP SCH (08:50)
[2023-03-13] MEDS: AMOXIC-POT CLAV 875-125MG 1 EACH TAB NG-TUBE SCH ×2 (08:51→20:14)
--- NOTE | 2023-03-13 10:15 | P.PN ---
Subjective Progress Note Date: 03/13/23 Principal diagnosis: Fever Patient is a 77-year-old male presenting to the hospital after the patient was found to be unresponsive by the , patient has been febrile initial testing negative including LP which was only mildly elevated protein. On today's evaluation that is 03/13/2023, the patient remains to be afebrile, , the patient is breathing comfortably on room air, the patient slightly more awake and responded to his name, the patient did have NG for feeding no vomiting no diarrhea or any other changes reported by the nursing staff patient white count is down to 15,000 , creatinine is 0.72, UA is negative, Objective - Vital Signs Vital signs: Vital Signs Temp 99.7 F H 03/13/23 08:00 Pulse 86 03/13/23 08:00 Resp 18 03/13/23 08:00 BP 129/63 03/13/23 08:00 Pulse Ox 92 L 03/13/23 09:08 FiO2 50 03/05/23 08:14 Intake & Output 03/12/23 03/13/23 03/13/23 18:59 06:59 18:59 Intake Total 664 996 Output Total 750 650 350 Balance -86 346 -350 Weight 92 kg Intake: Tube Feeding 664 996 Output: Urine 750 650 350 Other: Voiding Method External Catheter External Catheter External Catheter # Voids 1 # Bowel Movements 1 0 - Exam GENERAL DESCRIPTION: An elderly male lying in bed in no distress RESPIRATORY SYSTEM: Unlabored breathing , coarse breath sounds bilaterally HEART: S1 S2 regular rate and rhythm , ABDOMEN: Soft , no tenderness EXTREMITIES: No edema feet - Labs CBC & Chem 7: 03/13/23 07:08 03/13/23 07:08 Labs: Abnormal Lab Results - Last 24 Hours (Table) 03/12/23 03/13/23 03/13/23 Range/Units 18:18 05:52 07:08 WBC 15.4 H (3.8-10.6) k/uL RBC 3.94 L (4.30-5.90) m/uL Sodium (137-145) mmol/L BUN (9-20) mg/dL Glucose (74-99) mg/dL POC Glucose (mg/dL) 117 H 117 H (70-110) mg/dL Total Bilirubin (0.2-1.3) mg/dL ALT (4-49) U/L Albumin (3.5-5.0) g/dL 03/13/23 Range/Units 07:08 WBC (3.8-10.6) k/uL RBC (4.30-5.90) m/uL Sodium 136 L (137-145) mmol/L BUN 36 H (9-20) mg/dL Glucose 115 H (74-99) mg/dL POC Glucose (mg/dL) (70-110) mg/dL Total Bilirubin 1.4 H (0.2-1.3) mg/dL ALT 62 H (4-49) U/L Albumin 3.4 L (3.5-5.0) g/dL Microbiology - Last 24 Hours (Table) 03/10/23 10:10 Blood Culture - Preliminary Blood Assessment and Plan (1) Fever Current Visit: Yes Status: Acute Code(s): R50.9 - FEVER, UNSPECIFIED SNOMED Code(s): 812977956 (2) Pneumonia Current Visit: Yes Status: Acute Code(s): J18.9 - PNEUMONIA, UNSPECIFIED ORGANISM SNOMED Code(s): 353247880 (3) West Nile Virus infection Current Visit: Yes Status: Acute Code(s): A92.30 - WEST NILE VIRUS INFECTION, UNSPECIFIED SNOMED Code(s): 522558735 Plan: 1patient with SIRS in this patient with a fever elevated white count tachycardia with significant mental status changes high clinical suspicious for possible encephalitis/meningitis ,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, the treatment is mostly supportive this has been discussed in detail with the daughter at the bedside who asked for antiviral treatment, currently no studies support the use of ribavirin or acyclovir, steroids is also questionable, there is some role for immunoglobulin infusion , which patient has already received 2 leukocytosis likely related to oropharyngeal candidiasis plus minus a component of sinusitis as the patient did have NG for more than 10 days now , the patient white count is trending down, we will continue with Augmentin and Diflucan and monitor clinical course closely Dictation was produced using [employer] dictation software. please excuse any grammatical, word or spelling errors. Time with Patient: Less than 30
--- NOTE | 2023-03-13 11:46 | P.PN ---
Subjective Progress Note Date: 03/13/23 CHIEF COMPLAINT: Altered mental status HISTORY OF PRESENT ILLNESS: Patient diagnosed with West Nile virus encephalitis with sepsis and pneumonia. Patient has failed a swallowing eval's. Surgical service consulted for PEG tube placement. Afebrile PHYSICAL EXAM: VITAL SIGNS: Reviewed. GENERAL: Well-developed in no acute distress. ABDOMEN: Soft. Nondistended. Nontender. NEUROLOGIC: Awake ASSESSMENT: 1. Dysphagia 2. Mild protein calorie malnutrition 3. Failed swallow eval 4. West Nile virus encephalitis PLAN: -Patient scheduled for EGD with PEG tube placement on 03/16/[address] Whipple -Mary Presley starting tomorrow morning -Hold Tube feeds after midnight on Thursday Physician Planishing Press Operator note has been reviewed by physician. Signing provider agrees with the documented findings, assessment, and plan of care. Objective - Vital Signs Vital signs: Vital Signs Temp 99.7 F H 03/13/23 08:00 Pulse 86 03/13/23 08:00 Resp 18 03/13/23 08:00 BP 129/63 03/13/23 08:00 Pulse Ox 92 L 03/13/23 09:08 FiO2 50 03/05/23 08:14 Intake & Output 03/12/23 03/13/23 03/13/23 18:59 06:59 18:59 Intake Total 664 996 Output Total 750 650 350 Balance -86 346 -350 Weight 92 kg Intake: Tube Feeding 664 996 Output: Urine 750 650 350 Other: Voiding Method External Catheter External Catheter External Catheter # Voids 1 # Bowel Movements 1 0 - Labs CBC & Chem 7: 03/13/23 07:08 03/13/23 07:08 Labs: Abnormal Lab Results - Last 24 Hours (Table) 03/12/23 03/13/23 03/13/23 Range/Units 18:18 05:52 07:08 WBC 15.4 H (3.8-10.6) k/uL RBC 3.94 L (4.30-5.90) m/uL Sodium (137-145) mmol/L BUN (9-20) mg/dL Glucose (74-99) mg/dL POC Glucose (mg/dL) 117 H 117 H (70-110) mg/dL Total Bilirubin (0.2-1.3) mg/dL ALT (4-49) U/L Albumin (3.5-5.0) g/dL 03/13/23 Range/Units 07:08 WBC (3.8-10.6) k/uL RBC (4.30-5.90) m/uL Sodium 136 L (137-145) mmol/L BUN 36 H (9-20) mg/dL Glucose 115 H (74-99) mg/dL POC Glucose (mg/dL) (70-110) mg/dL Total Bilirubin 1.4 H (0.2-1.3) mg/dL ALT 62 H (4-49) U/L Albumin 3.4 L (3.5-5.0) g/dL Microbiology - Last 24 Hours (Table) 03/10/23 10:10 Blood Culture - Preliminary Blood
[2023-03-13 12:10] LABS: Glucose,Whole Blood 129 mg/dL (70-110)
--- NOTE | 2023-03-13 12:36 | P.PN ---
Subjective Progress Note Date: 03/13/23 The patient is seen today 03/04/2023 in follow-up in the intensive care unit. Currently maintaining good O2 saturations in the 90s on 3 L/m per nasal cannula. Remains on Cardizem drip at 5 mg per hour. Normal saline at 20 ML's per hour. He is being nourished via nasogastric tube with vital AF at 75 ML's per hour with a goal of 83 ML's per hour. He did utilize BiPAP last night 19/01 and 50% FiO2. He had some episodes of atrial fibrillation with RVR again. He also had an episode of respiratory distress. Arterial blood gases revealed a pO2 of 225, pCO2 40 and a pH of 7.48. Chest x-ray did not reveal any acute changes. He remains slow to respond. His speech remains quite garbled. Currently in atrial fibrillation with a controlled ventricular rate. Sodium 140. Potassium 3.5. Bicarb 30. BUN 19. Creatinine 0.66. AST 84. ALT 92. The patient is seen today 03/05/2023 in follow-up in the intensive care unit. Neurologically remains about the same. Arousable, garbled speech. Afebrile. Maintaining good O2 saturations in the 90s on room air. Blood cultures, urine culture, cerebrospinal fluid cultures and repeat blood cultures have all been negative. 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 White count 10.0. Hemoglobin 12.9. Platelets 173. Sodium 139. Potassium 4.1. Bicarb 30. BUN 21. Creatinine 0.83. Glucose 100. Pro-calcitonin 0.07. He is currently on Zo syn per ID service. Normal saline at KVO. He is being nourished via nasogastric tube with vital AF at 83 ML's per hour which is goal. He remains in atrial fibrillation. He is on beta blockers and anticoagulated with Eliquis. The patient is seen today 03/06/2023 in follow-up in the intensive care unit. He is arousable. Able to state his name. Continues with garbled speech. Somewhat slow to respond. He is maintaining good O2 saturations in the 90s on room air. He has normal saline at 20 ML's per hour. Mean #nourished via nasogastric tube with vital AF at 83 ML's per hour which is goal. He was initiated on IVIG yesterday and the plan is for a total of 3 doses. His IgG2 was 172. IgE 338. He was also initiated on vitamins and probiotics. He is going for a MRI of the C-spine today per neurology. White count 8.6. Hemoglobin 12.7. Sodium 140. Potassium 4.2. Bicarb 26. BUN 22. Creatinine 0.69. Glucose 121. AST 59. ALT 92. Albumin 2.7. Currently in sinus rhythm. He is anticoagulated with Eliquis. Antibiotics in the form of Zosyn. The patient is seen today 03/07/2023 in follow-up in the intensive care unit. He is a bit more alert today. Still with garbled speech. Still waxing and waning. He is maintaining good O2 saturations in the upper 90s on room air. He's currently afebrile. Hemodynamically stable. Urine and blood, cerebrospinal fluid and follow up blood cultures have all revealed no growth. Testing positive for West Nile. 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 Moderate focal spinal canal stenosis. Continues to receive IVIG. [place] on Zosyn. Remains on vitamin supplements. Anticoagulated with Eliquis. Nasogastric tube remains in place. He is on vital AF at 83 ML's per hour which is goal. Progress note dated 03/08/2023. 77-year-old male that we have been seen in the intensive care unit, the entire week. The patient did test positive for West Nile virus. The patient's primary issue was that of encephalopathy, which has been slowly improving. Currently, the patient is seen in room 354. He is getting vital high protein at 83 mL an hour, via an NG tube. The patient not on any supplemental oxygen, and is not receiving any additional fluids. Zosyn is discontinued. The patient did receive 3 doses of IVIG, as per infectious diseases. White count 11.9, hemoglobin 13.9, hematocrit 41.1, with a normal platelet count. Sodium 138, potassium 5.2, chlorides 107, CO2 22, BUN 27 and creatinine 0.70. On today's evaluation of 2022, I'm seeing the patient for a follow-up. The patient is still lethargic, difficult to to communicate with. Nevertheless, upon repeated stimulation, he is able to follow some simple commands. He is calm and comfortable. Resting comfortably in bed. No signs of any overt respiratory distress. No fever. No seizure activity. The patient is h emodynamically stable. The patient is receiving enteral feeding for nutritional support and the patient is currently on vitamin HP at the rate of 83 mL an hour. The patient has completed 3 doses of IVIG treatment. Neurology is on the case. Infectious diseases also on the case. The patient remains on Keppra 750 mg IV every 12 hours. The patient is afebrile. The blood work shows a dull discom fort 13.5, he was 14.5 and a platelet count of 221. BUN is at 30 with a creatinine of 0.7 and a sodium level is at 138. Glucose at 124. On 03/10/2023, the patient's condition is essentially unchanged. Lethargic, , encephalopathic, occasionally following some simple commands although his responses not consistent. Continues to receive enteral feeding for nutritional support. NG tube is in place. No fever. No chills. No other complaints. Electrolytes show a potassium level of 5.5, sodium is at 136, BUN is a 50 with a creatinine of 0.8. LFTs are within normal limits. The patient is on Cozaar for blood pressure control 25 mg by mouth daily. The patient is also taking Cardizem 30 mg by mouth 3 times a day. The patient remains on Keppra. Neurology on the case. The patient is on normal saline at rate of 20 mL an hour. On today's evaluation of 03/11/2023, the patient is noted to be slightly more awake compared to yesterday. He is answering questions by saying yes and no. No focal neurological deficits. No seizure activity. No fever. His swallow evaluation to be done today. Meanwhile, the patient still has an NG tube in place for enteral feeding and nutritional support. No other new complaints otherwise for now. I do feel that neurologically the patient is more alert. BUN is 41 with a creatinine of 0.7, the patient is a 16.8 with a hemoglobin 13.9. On 03/12/2022, the neurologically condition of this patient is the same as yesterday. Obviously, he is awake and is doing some communication. This is minimal. He was unable to swallow and NG tube was kept in place. I believe that he may do better with a PEG tube insertion as the patient's neurologic recovery is not absolutely guaranteed and the patient may take a long time for recovery. As such, securing a PEG tube would be a reasonable option for this patient. The patient otherwise doing well. No specific complaints. No respiratory distress. His overall pulmonary status is stable and the patient is currently on room air oxygen with a pulse ox of 93%. Labs from today shows a white cell count of 17.4, hemoglobin 13, BUN is 37 with a creatinine of 0.7. On 03/13/2023, no change in neurologic functions and the patient remains in the same neurologic status. He continues to receive enteral feeding for nutritional support via an NG tube. The patient will need a PEG tube and this has been te ntatively scheduled to be done on 03/16/2023. Anticoagulation will placed on hold for now. No other complaints. No signs of any respiratory distress. The blood work shows a BUN of 36 with a creatinine of 0.7. The white cell count 15.4 with a hemoglobin of 13 and a platelet count of 218. Blood sugars at 219. The patient will be having a PEG tube insertion for enteral feeding and nutritional support. Objective - Vital Signs Vital signs: Vital Signs Temp 99.7 F H 03/13/23 08:00 Pulse 86 03/13/23 08:00 Resp 18 03/13/23 08:00 BP 129/63 03/13/23 08:00 Pulse Ox 92 L 03/13/23 09:08 FiO2 50 03/05/23 08:14 Intake & Output 03/12/23 03/13/23 03/13/23 18:59 06:59 18:59 Intake Total 664 996 Output Total 750 650 350 Balance -86 346 -350 Weight 92 kg Intake: Tube Feeding 664 996 Output: Urine 750 650 350 Other: Voiding Method External Catheter External Catheter External Catheter # Voids 1 # Bowel Movements 1 0 - Exam No acute distress, calm and comfortable without any agitation The patient is alert yet still significantly encephalopathic. NG tube is noted. Head exam was generally normal. There was no scleral icterus or corneal arcus. Mucous membranes were moist. HEENT examination is grossly unremarkable. Mucous membranes are dry. Neck supple. Full range of motion. No adenopathy thyromegaly or neck vein distention. Cardiovascular examination reveals regular rhythm rate. S1-S2 normal. No S3 or S4. No discernible murmur noted. Lungs reveal clear breath sounds. Breath sounds are equal bilaterally. No adventitious lung sounds including wheezes rhonchi or crackles. Abdominal exam revealed normal bowel sounds. The abdomen was soft, non-tender, and without masses, organomegaly, or appreciable enlargement of the abdominal aorta. Extremities are intact. No cyanosis clubbing or edema. Skin is without rash or lesion. Neurologic examination is awake, encephalopathy is slightly improved and the patient seems to much more alert and moving all 4 extremities. - Labs CBC & Chem 7: 03/13/23 07:08 03/13/23 07:08 Labs: Abnormal Lab Results - Last 24 Hours (Table) 03/12/23 03/13/23 03/13/23 Range/Units 18:18 05:52 07:08 WBC 15.4 H (3.8-10.6) k/uL RBC 3.94 L (4.30-5.90) m/uL Sodium (137-145) mmol/L BUN (9-20) mg/dL Glucose (74-99) mg/dL POC Glucose (mg/dL) 117 H 117 H (70-110) mg/dL Total Bilirubin (0.2-1.3) mg/dL ALT (4-49) U/L Albumin (3.5-5.0) g/dL 03/13/23 Range/Units 07:08 WBC (3.8-10.6) k/uL RBC (4.30-5.90) m/uL Sodium 136 L (137-145) mmol/L BUN 36 H (9-20) mg/dL Glucose 115 H (74-99) mg/dL POC Glucose (mg/dL) (70-110) mg/dL Total Bilirubin 1.4 H (0.2-1.3) mg/dL ALT 62 H (4-49) U/L Albumin 3.4 L (3.5-5.0) g/dL Microbiology - Last 24 Hours (Table) 03/10/23 10:10 Blood Culture - Preliminary Blood Assessment and Plan Plan: Encephalopathy, secondary to the West Nile virus. Initiated on IVIG 3 doses. The encephalopathy is gradually improving, yet overall recovery is very slow and full recovery is not guaranteed. Meanwhile, the patient continues to receive enteral feeding for decision support. 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 Leukocytosis, resolved, possible aspiration pneumonia. Patient has completed Zosyn therapy. Acute rhabdomyolysis, significantly elevated CPK, improving with hydration, CPK is down to 719. Elevated LFTs, ultrasound showed hepatomegaly. Elevated troponins, possibly related to supply/demand mismatch. Atrial fibrillation with rapid ventricular response. The rate is currently controlled and the patient is currently on beta blockers and anticoagulation angelita Presley. Plan: Monitor neurological outcome, neurologically more awake, and this will be a very slow recovery and for recovery is not guaranteed. Unable to swallow and the patient is receiving any tube feeding for enteral feeding Active insertion to be done on 03/16/2023 Anticoagulation placed on hold Monitor the white cell count Continue Keppra, no signs of any ongoing seizure activity Neurology and on the case Labs were noted and are all stable Continue oral Cardizem Continue oral metoprolol Patient is currently on room air oxygen We'll continue to follow
--- NOTE | 2023-03-13 12:48 | P.PN ---
Subjective Progress Note Date: 02/27/23 Principal diagnosis: Fever Patient is a 77-year-old male presenting to the hospital y after the patient was found to be unresponsive by the , patient has been febrile initial testing negative including LP which was only mildly elevated protein. On today's evaluation that is 02/27/2023, the patient overall fever pattern has improved , and the patient is afebrile today, the patient did have some improvement in mentation with minimal response to the family, the patient is hemodynamically stable not requiring any pressor support, the patient is currently on 2 L nasal nasal oxygen no vomiting or diarrhea has been reported patient white cowhite count is down to 13.8 , creatinine 0.67, pro-calcitonin 0.31, urine is negative urine drug screen was negative influenza and RSV covid negative, urine for Legionella antigen negative, CSF studies were negative exc ept mildly elevated protein Objective - Vital Signs Vital signs: Vital Signs Temp 98.4 F 02/27/23 16:00 Pulse 96 02/27/23 19:00 Resp 24 02/27/23 19:00 BP 118/76 02/27/23 19:00 Pulse Ox 93 L 02/27/23 19:00 FiO2 28 02/26/23 10:00 Intake & Output 02/27/23 02/27/23 02/28/23 06:59 18:59 06:59 Intake Total 1480 1760 130 Output Total 905 1090 45 Balance 575 670 85 Intake: IV 130 1630 130 Piperacillin-Tazobactam 3 200 .375 gm In Sodium Chloride 0.9% 100 ml @ 25 mls/hr IVPB Q8HR [facility] Rx# :[id number] Sodium Chloride 0.9% 1, 130 1430 130 000 ml @ 130 mls/hr IV . Q7H42M [facility] Rx#:[id number] Intake, IV Titration 1300 130 Amount Sodium Chloride 0.9% 1, 1300 130 000 ml @ 130 mls/hr IV . Q7H42M [facility] Rx#:[id number] Tube Feeding 50 Output: Urine 905 1090 45 Other: Voiding Method Indwelling Catheter Indwelling Catheter - Exam GENERAL DESCRIPTION: An elderly male lying in bed in no distress RESPIRATORY SYSTEM: Unlabored breathing , coarse breath sounds bilaterally HEART: S1 S2 regular rate and rhythm , ABDOMEN: Soft , no tenderness EXTREMITIES: No edema feet - Labs CBC & Chem 7: 02/28/23 04:38 02/28/23 04:38 Labs: Abnormal Lab Results - Last 24 Hours (Table) 02/27/23 02/27/23 02/27/23 Range/Units 06:24 06:28 06:28 WBC 13.8 H (3.8-10.6) k/uL Plt Count 92 L (150-450) k/uL Chloride 118 H (98-107) mmol/L Carbon Dioxide 16 L (22-30) mmol/L BUN 26 H (9-20) mg/dL POC Glucose (mg/dL) 123 H (70-110) mg/dL Calcium 7.6 L (8.4-10.2) mg/dL Total Bilirubin 1.9 H (0.2-1.3) mg/dL AST 262 H (17-59) U/L ALT 93 H (4-49) U/L Creatine Kinase (55-170) U/L Total Protein 5.9 L (6.3-8.2) g/dL Albumin 2.8 L (3.5-5.0) g/dL 02/27/23 02/27/23 Range/Units 10:51 18:54 WBC (3.8-10.6) k/uL Plt Count (150-450) k/uL Chloride (98-107) mmol/L Carbon Dioxide (22-30) mmol/L BUN (9-20) mg/dL POC Glucose (mg/dL) 122 H (70-110) mg/dL Calcium (8.4-10.2) mg/dL Total Bilirubin (0.2-1.3) mg/dL AST (17-59) U/L ALT (4-49) U/L Creatine Kinase 32182 H* (55-170) U/L Total Protein (6.3-8.2) g/dL Albumin (3.5-5.0) g/dL Microbiology - Last 24 Hours (Table) 02/24/23 11:10 CSF Gram Stain - Preliminary Cerebral Spinal Fluid CSF Culture - Preliminary 02/25/23 05:19 Blood Culture - Preliminary Blood 02/23/23 12:15 Blood Culture - Preliminary Blood 02/23/23 12:30 Blood Culture - Preliminary Blood Assessment and Plan (1) Fever Current Visit: Yes Status: Acute Code(s): R50.9 - FEVER, UNSPECIFIED SNOMED Code(s): 370010435 (2) Pneumonia Current Visit: Yes Status: Acute Code(s): J18.9 - PNEUMONIA, UNSPECIFIED ORGANISM SNOMED Code(s): 064285517 Plan: 1patient with SIRS in this patient with a fever elevated white count tachycardia with significant mental status changes high clinical suspicious for possible encephalitis/meningitis however the patient LP is relatively clear only mildly elevated protein of 86 patient chest x-ray negative for pneumonia urine has been negative mildly elevated liver enzymes and the patient did have evidence of rhabdomyolysis as the patient has been on the floor for more than 12 hours however no evidence of any bruising or injury has been noticed abdominal soft on clinical examination 2- ultrasound of the abdomen sludge versus artifact in the gallbladder no other abnormality noticed 3- hepatitis panel is negative 4Patient slowly clinically improving and will continue with Zosyn and monitor his clinical course closely Daughter at the bedside and multiple questions concerned were answered Dictation was produced using [employer] dictation software. please excuse any grammatical, word or spelling errors.
[2023-03-13] MEDS: SODIUM CHLORIDE 0.9% 1,000 ML IV SCH (17:05)
[2023-03-13] MEDS: ACETAMINOPHEN TAB 325 MG TAB PO PRN (17:46)
[2023-03-13 18:36] LABS: Glucose,Whole Blood 122 mg/dL (70-110)
[2023-03-13 22:43] LABS: Glucose,Whole Blood 110 mg/dL (70-110)
--- NOTE | 2023-03-13 23:26 | XR ---
EXAM: XR Chest, 1 View CLINICAL HISTORY: ITS.REASON XR Reason: Resp distress TECHNIQUE: Frontal view of the chest. Patient rotation. COMPARISON: Chest x-ray 03/10/23. FINDINGS: Lungs: Mild haziness right upper lobe abutting the fissure, nonspecific, possible pneumonia. No consolidation. Pleural space: No pneumothorax. Heart: No cardiomegaly. Mediastinum: Limited due to patient rotation. Bones/Soft Tissues: No acute abnormality. IMPRESSION: 1. New right upper lobe infiltrate, possible pneumonia
[2023-03-13 23:50] LABS: Glucose,Whole Blood 135 mg/dL (70-110)
[2023-03-13 23:56] LABS: ABG Base Excess 0.2 mmol/L; ABG HCO3 24 mmol/L (21-25); ABG Oxygen Saturation 98.4 % (94-97); ABG PCO2 32 mmHg (35-45); ABG PH 7.49 (7.35-7.45); ABG PO2 122 mmHg (83-108); ABG TCO2 25 mmol/L (19-24); Allen Test Performed? Yes
[2023-03-14] MEDS ORDERED: NALOXONE 0.4 MG/ML 1 ML VIAL IV PRN (00:10)
[2023-03-14] MEDS ORDERED: ONDANSETRON 4 MG/2 ML VIAL IVP PRN (00:15)
[2023-03-14] MEDS ORDERED: propofoL 100 ML IV ONE (01:54)
[2023-03-14 02:00] LABS: Glucose,Whole Blood 111 mg/dL (70-110)
[2023-03-14] MEDS: NOREPINEPHRINE 4 MG in SODIUM CHLORIDE 0.9% 250 ML IV SCH ×3 (02:00→21:08)
[2023-03-14] MEDS ORDERED: SODIUM CHLORIDE 0.9% 1,000 ML IV ONE ×3 (03:00→09:29)
[2023-03-14 03:22] LABS: ABG Base Excess -0.9 mmol/L; ABG HCO3 23 mmol/L (21-25); ABG PCO2 30 mmHg (35-45); ABG PH 7.48 (7.35-7.45); ABG PO2 >400 mmHg (83-108); ABG TCO2 24 mmol/L (19-24)
[2023-03-14 03:26] LABS: Allen Test Performed? No
--- NOTE | 2023-03-14 04:40 | XR ---
EXAM: XR Chest, 1 View CLINICAL HISTORY: ITS.REASON XR Reason: Tube placement TECHNIQUE: Frontal view of the chest. COMPARISON: Chest x-ray 03/13/23. FINDINGS: Lungs: Stable subtle right upper lobe infiltrate. Lungs are otherwise clear. Pleural space: No pneumothorax. Heart: No cardiomegaly. Mediastinum: Unremarkable. Bones/Soft Tissues: No acute abnormality. Tubes/Lines: NG tube has been placed, tip not included in the field of view, likely in the mid stomach. There is an endotracheal tube, tip along the inferior margin of the clavicles. IMPRESSION: 1. Endotracheal tube in good position. 2. NG tube is also been placed, tip not included in the field of view, likely in the stomach. Consider abdominal x-ray for confirmation. 3. Stable, mild right upper lobe infiltrate.
[2023-03-14] MEDS: SODIUM CHLORIDE 0.9% 1,000 ML IV SCH ×5 (04:58→21:06)
[2023-03-14 05:32] LABS: Glucose,Whole Blood 155 mg/dL (70-110)
[2023-03-14 05:57] LABS: HCT 34.8 % (39.0-53.0); HGB 11.8 gm/dL (13.0-17.5); MCH 33.8 pg (25.0-35.0); MCV 99.3 fL (80.0-100.0); Mean Platelet Volume 8.9; Platelet Count 278 k/uL (150-450); RDW 13.5 % (11.5-15.5); WBC 36.4 k/uL (3.8-10.6)
[2023-03-14 06:28] LABS: ALT 88 U/L (4-49); AST 73 U/L (17-59); African American GFR (CKD) 75 (>60 ml/min/1.73 sqM); Albumin 2.9 g/dL (3.5-5.0); Alkaline Phosphatase 79 U/L (38-126); Anion Gap 10 mmol/L; Blood Urea Nitrogen 46 mg/dL (9-20); Calcium 8.3 mg/dL (8.4-10.2); Carbon Dioxide 20 mmol/L (22-30); Chloride 107 mmol/L (98-107); Glucose 128 mg/dL (74-99); Non-African American GFR(CKD) 65 (>60 ml/min/1.73 sqM); Potassium 4.7 mmol/L (3.5-5.1); Sodium 137 mmol/L (137-145); Total Bilirubin 3.4 mg/dL (0.2-1.3); Total Protein 6.7 g/dL (6.3-8.2)
[2023-03-14] MEDS: LORazepam 2 MG/ML INJ IV PRN (08:19)
[2023-03-14] MEDS: PANTOPRAZOLE 40 MG/10 ML VIAL IVP SCH (08:19)
[2023-03-14] MEDS: CHLORHEXIDINE GLUCONATE 15 ML CUP MUCOUS MEM SCH ×2 (08:20→21:05)
[2023-03-14] MEDS: LACTOBACILLUS ACIDOPHILUS/PECT 1 EACH CAPSULE PO SCH ×3 (08:22→21:05)
[2023-03-14] MEDS: DILTIAZEM ORAL 30 MG TAB PO SCH (08:22)
[2023-03-14] MEDS: ZINC SULFATE 220 MG CAP PO SCH (08:22)
[2023-03-14] MEDS: CHOLECALCIFEROL 125 MCG (5000 IU) TABLET PO SCH (08:22)
[2023-03-14] MEDS: ASCORBIC ACID 500 MG TAB PO SCH (08:22)
[2023-03-14] MEDS: LOSARTAN 25 MG TAB PO SCH (08:22)
--- NOTE | 2023-03-14 08:54 | P.PN ---
Subjective Progress Note Date: 03/14/23 The patient is seen today 03/04/2023 in follow-up in the intensive care unit. Currently maintaining good O2 saturations in the 90s on 3 L/m per nasal cannula. Remains on Cardizem drip at 5 mg per hour. Normal saline at 20 ML's per hour. He is being nourished via nasogastric tube with vital AF at 75 ML's per hour with a goal of 83 ML's per hour. He did utilize BiPAP last night 19/01 and 50% FiO2. He had some episodes of atrial fibrillation with RVR again. He also had an episode of respiratory distress. Arterial blood gases revealed a pO2 of 225, pCO2 40 and a pH of 7.48. Chest x-ray did not reveal any acute changes. He remains slow to respond. His speech remains quite garbled. Currently in atrial fibrillation with a controlled ventricular rate. Sodium 140. Potassium 3.5. Bicarb 30. BUN 19. Creatinine 0.66. AST 84. ALT 92. The patient is seen today 03/05/2023 in follow-up in the intensive care unit. Neurologically remains about the same. Arousable, garbled speech. Afebrile. Maintaining good O2 saturations in the 90s on room air. Blood cultures, urine culture, cerebrospinal fluid cultures and repeat blood cultures have all been negative. 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 White count 10.0. Hemoglobin 12.9. Platelets 173. Sodium 139. Potassium 4.1. Bicarb 30. BUN 21. Creatinine 0.83. Glucose 100. Pro-calcitonin 0.07. He is currently on Zo syn per ID service. Normal saline at KVO. He is being nourished via nasogastric tube with vital AF at 83 ML's per hour which is goal. He remains in atrial fibrillation. He is on beta blockers and anticoagulated with Eliquis. The patient is seen today 03/06/2023 in follow-up in the intensive care unit. He is arousable. Able to state his name. Continues with garbled speech. Somewhat slow to respond. He is maintaining good O2 saturations in the 90s on room air. He has normal saline at 20 ML's per hour. Mean #nourished via nasogastric tube with vital AF at 83 ML's per hour which is goal. He was initiated on IVIG yesterday and the plan is for a total of 3 doses. His IgG2 was 172. IgE 338. He was also initiated on vitamins and probiotics. He is going for a MRI of the C-spine today per neurology. White count 8.6. Hemoglobin 12.7. Sodium 140. Potassium 4.2. Bicarb 26. BUN 22. Creatinine 0.69. Glucose 121. AST 59. ALT 92. Albumin 2.7. Currently in sinus rhythm. He is anticoagulated with Eliquis. Antibiotics in the form of Zosyn. The patient is seen today 03/07/2023 in follow-up in the intensive care unit. He is a bit more alert today. Still with garbled speech. Still waxing and waning. He is maintaining good O2 saturations in the upper 90s on room air. He's currently afebrile. Hemodynamically stable. Urine and blood, cerebrospinal fluid and follow up blood cultures have all revealed no growth. Testing positive for West Nile. 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 Moderate focal spinal canal stenosis. Continues to receive IVIG. [place] on Zosyn. Remains on vitamin supplements. Anticoagulated with Eliquis. Nasogastric tube remains in place. He is on vital AF at 83 ML's per hour which is goal. Progress note dated 03/08/2023. 77-year-old male that we have been seen in the intensive care unit, the entire week. The patient did test positive for West Nile virus. The patient's primary issue was that of encephalopathy, which has been slowly improving. Currently, the patient is seen in room 354. He is getting vital high protein at 83 mL an hour, via an NG tube. The patient not on any supplemental oxygen, and is not receiving any additional fluids. Zosyn is discontinued. The patient did receive 3 doses of IVIG, as per infectious diseases. White count 11.9, hemoglobin 13.9, hematocrit 41.1, with a normal platelet count. Sodium 138, potassium 5.2, chlorides 107, CO2 22, BUN 27 and creatinine 0.70. On today's evaluation of 2022, I'm seeing the patient for a follow-up. The patient is still lethargic, difficult to to communicate with. Nevertheless, upon repeated stimulation, he is able to follow some simple commands. He is calm and comfortable. Resting comfortably in bed. No signs of any overt respiratory distress. No fever. No seizure activity. The patient is h emodynamically stable. The patient is receiving enteral feeding for nutritional support and the patient is currently on vitamin HP at the rate of 83 mL an hour. The patient has completed 3 doses of IVIG treatment. Neurology is on the case. Infectious diseases also on the case. The patient remains on Keppra 750 mg IV every 12 hours. The patient is afebrile. The blood work shows a dull discom fort 13.5, he was 14.5 and a platelet count of 221. BUN is at 30 with a creatinine of 0.7 and a sodium level is at 138. Glucose at 124. On 03/10/2023, the patient's condition is essentially unchanged. Lethargic, , encephalopathic, occasionally following some simple commands although his responses not consistent. Continues to receive enteral feeding for nutritional support. NG tube is in place. No fever. No chills. No other complaints. Electrolytes show a potassium level of 5.5, sodium is at 136, BUN is a 50 with a creatinine of 0.8. LFTs are within normal limits. The patient is on Cozaar for blood pressure control 25 mg by mouth daily. The patient is also taking Cardizem 30 mg by mouth 3 times a day. The patient remains on Keppra. Neurology on the case. The patient is on normal saline at rate of 20 mL an hour. On today's evaluation of 03/11/2023, the patient is noted to be slightly more awake compared to yesterday. He is answering questions by saying yes and no. No focal neurological deficits. No seizure activity. No fever. His swallow evaluation to be done today. Meanwhile, the patient still has an NG tube in place for enteral feeding and nutritional support. No other new complaints otherwise for now. I do feel that neurologically the patient is more alert. BUN is 41 with a creatinine of 0.7, the patient is a 16.8 with a hemoglobin 13.9. On 03/12/2022, the neurologically condition of this patient is the same as yesterday. Obviously, he is awake and is doing some communication. This is minimal. He was unable to swallow and NG tube was kept in place. I believe that he may do better with a PEG tube insertion as the patient's neurologic recovery is not absolutely guaranteed and the patient may take a long time for recovery. As such, securing a PEG tube would be a reasonable option for this patient. The patient otherwise doing well. No specific complaints. No respiratory distress. His overall pulmonary status is stable and the patient is currently on room air oxygen with a pulse ox of 93%. Labs from today shows a white cell count of 17.4, hemoglobin 13, BUN is 37 with a creatinine of 0.7. On 03/13/2023, no change in neurologic functions and the patient remains in the same neurologic status. He continues to receive enteral feeding for nutritional support via an NG tube. The patient will need a PEG tube and this has been te ntatively scheduled to be done on 03/16/2023. Anticoagulation will placed on hold for now. No other complaints. No signs of any respiratory distress. The blood work shows a BUN of 36 with a creatinine of 0.7. The white cell count 15.4 with a hemoglobin of 13 and a platelet count of 218. Blood sugars at 219. The patient will be having a PEG tube insertion for enteral feeding and nutritional support. 03/14/2023, the patient is being seen for a follow-up in the intensive care unit. Events from overnight was noted. The patient had massive aspiration. Apparently the NG tube got misplaced and the patient was having enteral feeding into his lungs. He became acutely short of breath, he went into respiratory distress. He was placed on 100% nonrebreather facemask. He was tried on a BiP AP which she failed and ultimately had to be intubated and placed on a mechanical ventilator. Post intubation, the patient became quite hypotensive. He received a total of 2.5 L of IV fluid and currently he is on normal saline running at the rate of 150 mL an hour. He is sedated with propofol at 25 mcg/kg/m. He is on a mechanical ventilator assist control mode with a rate of 28, tidal volume of 500, FiO2 of 50% with a PEEP of 5. An arterial line was inserted. He will also need a central line. 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 His chest x-ray immediately post aspiration showed some new infiltrates in his right upper lobe. NG tube has been removed. The patient has a orogastric tube in place for now. The patient is currently on IV Zosyn. The chest x-ray reveals new bilateral pulmonary infiltrates more so in the upper lobes. Lung bases are at this p eriod. Orogastric tube is in the stomach. The white cell count is at 36.4, with a hemoglobin of 11.8 and a platelet count of 278. BUN is 46 with a creatinine of 1.08 and sodium levels of 137. Glucose at 128. Urine output is in order of 20 mL an hour. He is currently afebrile. Objective - Vital Signs Vital signs: Vital Signs Temp 98.9 F 03/14/23 04:00 Pulse 68 03/14/23 07:00 Resp 28 H 03/14/23 07:00 BP 125/77 03/14/23 07:00 Pulse Ox 97 03/14/23 07:00 FiO2 50 03/14/23 07:57 Intake & Output 03/13/23 03/14/23 03/14/23 18:59 06:59 18:59 Intake Total 662 706.262 59.8 Output Total 700 315 Balance -38 391.262 59.8 Weight 93.1 kg Intake: IV 590 Sodium Chloride 0.9% 1, 450 000 ml @ 150 mls/hr IV . Q6H40M HARIS Rx#:[id number] Sodium Chloride 0.9% 1, 140 000 ml @ 20 mls/hr IV . Q24H [facility]IS Rx#:[id number] Intake, IV Titration 116.262 59.8 Amount Norepinephrine 4 mg In 113.042 Sodium Chloride 0.9% 250 ml @ 0.03 MCG/KG/MIN 10. 516 mls/hr IV .Q24H HARIS Rx#:[id number] propofoL 1,000 mg In 3.22 59.8 Empty Bag 1 bag @ 15 MCG/ KG/MIN 8.28 mls/hr IV . Q12H5M HARIS Rx#:[id number] Tube Feeding 662 Output: Urine 700 315 Other: Voiding Method External Catheter Indwelling Catheter # Voids 1 ABP, PAP, CO, CI - Last Documented Arterial Blood Pressure 113/55 - Exam No acute distress, calm and comfortable and the patient is currently intubated on a mechanical ventilator. The patient is on propofol running at 25 mcg/kg/m. Orogastric and orotracheal tube are both in place. Head exam was generally normal. There was no scleral icterus or corneal arcus. Mucous membranes were moist. HEENT examination is grossly unremarkable. Mucous membranes are dry. Neck supple. Full range of motion. No adenopathy thyromegaly or neck vein distention. Cardiovascular examination reveals regular rhythm rate. S1-S2 normal. No S3 or S4. No discernible murmur noted. Lungs reveal clear breath sounds. Breath sounds are equal bilaterally. No adventitious lung sounds including wheezes rhonchi or crackles. Abdominal exam revealed normal bowel sounds. The abdomen was soft, non-tender, and without masses, organomegaly, or appreciable enlargement of the abdominal aorta. Extremities are intact. No cyanosis clubbing or edema. Skin is without rash or lesion. Neurologic examination was encephalopathic and the patient is currently fully sedated on propofol. - Labs CBC & Chem 7: 03/14/23 05:45 03/14/23 06:00 Labs: Abnormal Lab Results - Last 24 Hours (Table) 03/13/23 03/13/23 03/13/23 Range/Units 12:09 18:34 23:48 WBC (3.8-10.6) k/uL RBC (4.30-5.90) m/uL Hgb (13.0-17.5) gm/dL Hct (39.0-53.0) % ABG pH (7.35-7.45) ABG pCO2 (35-45) mmHg ABG pO2 (83-108) mmHg ABG Total CO2 (19-24) mmol/L ABG O2 Saturation (94-97) % Carbon Dioxide (22-30) mmol/L BUN (9-20) mg/dL Glucose (74-99) mg/dL POC Glucose (mg/dL) 129 H 122 H 135 H (70-110) mg/dL Calcium (8.4-10.2) mg/dL Total Bilirubin (0.2-1.3) mg/dL AST (17-59) U/L ALT (4-49) U/L Albumin (3.5-5.0) g/dL 03/13/23 03/14/23 03/14/23 Range/Units 23:55 01:58 03:20 WBC (3.8-10.6) k/uL RBC (4.30-5.90) m/uL Hgb (13.0-17.5) gm/dL Hct (39.0-53.0) % ABG pH 7.49 H 7.48 H (7.35-7.45) ABG pCO2 32 L 30 L (35-45) mmHg ABG pO2 122 H >400 H (83-108) mmHg ABG Total CO2 25 H (19-24) mmol/L ABG O2 Saturation 98.4 H 100.0 H (94-97) % Carbon Dioxide (22-30) mmol/L BUN (9-20) mg/dL Glucose (74-99) mg/dL POC Glucose (mg/dL) 111 H (70-110) mg/dL Calcium (8.4-10.2) mg/dL Total Bilirubin (0.2-1.3) mg/dL AST (17-59) U/L ALT (4-49) U/L Albumin (3.5-5.0) g/dL 03/14/23 03/14/23 03/14/23 Range/Units 05:30 05:45 06:00 WBC 36.4 H (3.8-10.6) k/uL RBC 3.50 L (4.30-5.90) m/uL Hgb 11.8 L (13.0-17.5) gm/dL Hct 34.8 L (39.0-53.0) % ABG pH (7.35-7.45) ABG pCO2 (35-45) mmHg ABG pO2 (83-108) mmHg ABG Total CO2 (19-24) mmol/L ABG O2 Saturation (94-97) % Carbon Dioxide 20 L (22-30) mmol/L BUN 46 H (9-20) mg/dL Glucose 128 H (74-99) mg/dL POC Glucose (mg/dL) 155 H (70-110) mg/dL Calcium 8.3 L (8.4-10.2) mg/dL Total Bilirubin 3.4 H (0.2-1.3) mg/dL AST 73 H (17-59) U/L ALT 88 H (4-49) U/L Albumin 2.9 L (3.5-5.0) g/dL Microbiology - Last 24 Hours (Table) 03/10/23 10:10 Blood Culture - Preliminary Blood Assessment and Plan Plan: Acute hypoxic respiratory failure, currently intubated on a mechanical ventilator Acute aspiration pneumonia Acute aspiration of enteral feeding with subsequent respiratory distress and respiratory failure, currently intubated on a mechanical ventilator Acute hypotension probably related to aspiration/aspiration pneumonia and sepsis. Encephalopathy, secondary to the West Nile virus. Initiated on IVIG 3 doses. The encephalopathy was still present prior to him being intubated Acute encephalitis secondary to West Nile virus infection, still symptomatic without focal neurological recovery Acute febrile illness and sepsis, no obvious infectious process identified yet, all cultures have been negative so far. Leukocytosis, resolved, possible aspiration pneumonia. Patient has completed Zosyn therapy.Note that the leukocytosis got worse following his aspiration. Acute rhabdomyolysis, significantly elevated CPK, improving with hydration, CPK is down to 719. Elevated LFTs, ultrasound showed hepatomegaly. Elevated troponins, possibly related to supply/demand mismatch. Atrial fibrillation with rapid ventricular response. The rate is currently controlled and the patient is currently on beta blockers and anticoagulation with Eliquis. Motor the patient currently is in sinus tachycardia Plan: Continue ventilator support. FiO2 has already been dropped down to 50% Continue IV fluids with normal saline at rate of 150 mL an hour We'll give another liter of normal saline bolus Continue norepinephrine which is currently running at 0.2 microvascular kilogram per minute Will establish a triple-lumen catheter Patient has an arterial line Continue IV Zosyn for now May restart enteral feeding for nutritional support through the OG which is currently in good location The ultimate plan was for this patient to have a PEG tube inserted at the patient was quite encephalopathic and not ready to swallow post West Nile viral encephalitis Hold Cardizem for now and hold metoprolol as the patient is quite hypotensive May continue anticoagulation with Eliquis Continue Alek Monitor neurological outcome, neurologically more awake, and this will be a very slow recovery and for recovery is not guaranteed. The patient will be taken off Augmentin. The patient will be switched to IV Zosyn. Condition is obviously critical and we'll continue to follow make further recommendations based on his progress. There is a critical care evaluation was done in more than 30 minutes. Time with Patient: Greater than 30
[2023-03-14] MEDS: FLUCONAZOLE 100 MG TAB PO SCH (09:31)
--- NOTE | 2023-03-14 09:31 | P.PN ---
Subjective Progress Note Date: 03/09/23 03/09/2023: Patient was seen for follow-up. Patient's family members are present. Patient over the last 1 week has been followed up by Dr. Jose G Lopez. Please refer to his notes for details. 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 Family members states that patient is not much better. He is talking very minimal. Last week he was trying to talk. However he is not spea lv much now. Patient apparently also has received 3 days of IVIG. 03/01/2023: Patient was seen for a follow-up. Patient's older daughter, and patient's 2 sons were present today. Patient's daughter believes that he was much more awake earlier today, with eyes were more widely open. He did not talk, but did new walked was around. Looking at the family more obviously. Patient's family has mentioned that patient does work in the yard, cuts his own grass, and on the Day weekend, the event to watch the grandson's football game. He regularly goes out for a walk with his . He may have been exposed to mosquitoes. Patient was fine until Thursday when he stopped talking and presented to the ER. Objective - Vital Signs Vital signs: Vital Signs Temp 97.4 F L 03/09/23 08:21 Pulse 74 03/09/23 12:31 Resp 16 03/09/23 12:31 BP 104/70 03/09/23 12:31 Pulse Ox 94 L 03/09/23 12:31 FiO2 50 03/05/23 08:14 Intake & Output 03/08/23 03/09/23 03/09/23 18:59 06:59 18:59 Intake Total 240 20 Output Total 3000 900 1000 Balance -3000 -038 -958 Intake: IV 20 Invasive Line 8 10 Invasive Line 9 10 Oral 240 Output: Urine 3000 900 1000 Other: Voiding Method External Catheter External Catheter External Catheter # Voids 1 # Bowel Movements 1 - Exam Patient is obviously encephalopathic. Pupils are equal, round and reacting. Visual myers could not be tested. Face is symmetric. Patient did not cooperate with muscle strength testing. Patient becomes very responsive to movement of the upper extremities because of severe pain in the shoulder from previous shoulder issues. He gives an obvious "unpleasant look" in his eyes. His examination is otherwise unchanged, not much improved. - Labs CBC & Chem 7: 03/14/23 05:45 03/14/23 06:00 Labs: Abnormal Lab Results - Last 24 Hours (Table) 03/08/23 03/09/23 03/09/23 Range/Units 17:51 05:54 07:19 WBC 13.5 H (3.8-10.6) k/uL Carbon Dioxide (22-30) mmol/L BUN (9-20) mg/dL POC Glucose (mg/dL) 118 H 112 H (70-110) mg/dL Total Bilirubin (0.2-1.3) mg/dL ALT (4-49) U/L Albumin (3.5-5.0) g/dL 03/09/23 03/09/23 Range/Units 07:19 11:55 WBC (3.8-10.6) k/uL Carbon Dioxide 21 L (22-30) mmol/L BUN 30 H (9-20) mg/dL POC Glucose (mg/dL) 124 H (70-110) mg/dL Total Bilirubin 1.5 H (0.2-1.3) mg/dL ALT 80 H (4-49) U/L Albumin 3.4 L (3.5-5.0) g/dL Assessment and Plan Assessment: * 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 * Acute metabolic encephalopathy likely from severe pneumonia * SIRS, pneumonia * Acute rhabdomyolysis, resolving, most recent CK 719. * Elevated cardiac enzymes * New onset atrial fibrillation currently on Eliquis. * History of bilateral shoulder pain/arthritis * History of bilateral knee replacement. Plan: * MRI Brain w/ and w/o: Was reported as no evidence for encephalitis. No evidence of intracranial mass, acute/subacute infarct or abnormal enhancement. Nonspecific white matter changes, likely related to small vessel ischemic disease. * Repeat EEG performed 03/01/2023 was abnormal due to background slowing of moderate degree consistent with encephalopathy. No epileptiform activity was seen. When compared to the initial EEG from 02/24/2023, the background seems to have gotten worse. * Chest x-ray performed today revealed worsening bilateral multifocal opacities consistent with worsening edema and/or multifocal acute infiltrates. This is likely the cause of worsening of encephalopathy noted on EEG. Pulmonary, ID and cardiology on on board. * CSF performed 02/24/2023 was colorless and clear. CSF glucose 52, protein 86 (12-60). WBC count 4, RBCs 358. Comprehensive viral detection negative. 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 For west nile it is usually supportive care. * Patient is currently on Zosyn for possible pneumonia. * Continue Keppra 750 mg twice a day for now. May start tapering off Keppra, when mentation improves. Would not recommend keeping it long-term. * MRI Cervical spine w/ and w/o: Is reported as mild to moderate multilevel degenerative disc disease with scattered facet and uncovertebral joint. Appendectomy. Degenerative grade 1 anterolisthesis C7 to T1. Moderate focal signal canal stenosis at C3-C4 with abutment and flattening of both the dorsal and ventral cord. Sagittal FLAIR sequence suggest some focal cord edema here. Correlate for myelopathic symptoms. The axial images are essentially nondiagnostic due to patient motion. Unable to adequately assess then neuroforamen. Dr. Lopez has consulted the orthopedic surgery team and they evaluated patient and no surgical intervention. * Cardiology on board for new onset atrial fibrillation. Patient currently on Eliquis. * Discussed with patient's daughter and sons in detail.
[2023-03-14] MEDS: PIPERACILLIN-TAZOBACTAM 3.375 GM in SODIUM CHLORIDE 0.9% 100 ML IVPB SCH ×2 (09:34→16:43)
--- NOTE | 2023-03-14 09:44 | P.PN ---
Subjective Progress Note Date: 03/10/23 03/10/2023: Patient was seen for a follow-up. Patient's family members were present. They mentioned that patient was getting better when the shunt was receiving IV vitamins and been patient received IVIG. They were recommending IV vitamin D, zinc and some other vitamins. I informed that vitamin D excess can produce toxicity. Likewise zinc is typically given orally. Patient clinically not much change. Telemetry monitoring showing sinus rhythm with sinus bradycardia in the 40s, with some PVCs, PACs. Previously had SVT and A. fib. 03/09/2023: Patient was seen for follow-up. Patient's family members are present. Patient over the last 1 week has been followed up by Dr. Jose G Lopez. Please refer to his notes for details. 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 Family members states that patient is not much better. He is talking very minimal. Last week he was trying to talk. However he is not speaking much now. Patient apparently also has received 3 days of IVIG. 03/01/2023: Patient was seen for a follow-up. Patient's older daughter, and patient's 2 sons were present today. Patient's daughter believes that he was much more awake earlier today, with eyes were more widely open. He did not talk, but did new walked was around. Looking at the family more obviously. Patient's family has mentioned that patient does work in the yard, cuts his own grass, and on the Day weekend, the event to watch the grandson's football game. He regularly goes out for a walk with his . He may have been exposed to mosquitoes. Patient was fine until Thursday when he stopped talking and presented to the ER. Objective - Vital Signs Vital signs: Vital Signs Temp 97.9 F 03/10/23 15:26 Pulse 68 03/10/23 15:26 Resp 14 03/10/23 15:26 BP 111/66 03/10/23 15:26 Pulse Ox 96 03/10/23 15:26 FiO2 50 03/05/23 08:14 Intake & Output 03/09/23 03/10/23 03/10/23 18:59 06:59 18:59 Intake Total 40 20 724 Output Total 1450 625 Balance -1410 -605 724 Weight 99.9 kg Intake: IV 40 20 Invasive Line 8 20 Invasive Line 9 20 Sodium Chloride 0.9% 1, 20 000 ml @ 20 mls/hr IV . Q24H [facility] Rx#:[id number] Tube Feeding 664 Other 60 Output: Urine 1450 625 Other: Voiding Method External Catheter External Catheter External Catheter # Voids 1 # Bowel Movements 1 - Exam Patient is obviously encephalopathic. Patient is lethargic, responds to calling his name. Patient does have NG tube for feeding. Pupils are equal, round and reacting. Visual myers could not be tested. Face is symmetric. Patient did not cooperate with muscle strength testing. Patient becomes very responsive to movement of the upper extremities because of severe pain in the shoulder from previous shoulder issues. He is very groggy. Patient's social media director is equal. His examination is otherwise unchanged, not much improved. - Labs CBC & Chem 7: 03/14/23 05:45 03/14/23 06:00 Labs: Abnormal Lab Results - Last 24 Hours (Table) 03/09/23 03/10/23 03/10/23 Range/Units 18:07 00:09 03:37 WBC (3.8-10.6) k/uL Neutrophils # (1.3-7.7) k/uL Monocytes # (0-1.0) k/uL Sodium (137-145) mmol/L Potassium (3.5-5.1) mmol/L Carbon Dioxide (22-30) mmol/L BUN (9-20) mg/dL Glucose (74-99) mg/dL POC Glucose (mg/dL) 115 H 121 H 114 H (70-110) mg/dL Magnesium (1.6-2.3) mg/dL Total Bilirubin (0.2-1.3) mg/dL ALT (4-49) U/L C-Reactive Protein (<1.0) mg/dL Albumin (3.5-5.0) g/dL Urine Protein (Negative) Ur Leukocyte Esterase (Negative) Amorphous Sediment (None) /hpf Urine Bacteria (None) /hpf Urine Mucus (None) /hpf 03/10/23 03/10/23 03/10/23 Range/Units 03:51 03:52 06:12 WBC 21.5 H (3.8-10.6) k/uL Neutrophils # 17.5 H (1.3-7.7) k/uL Monocytes # 1.4 H (0-1.0) k/uL Sodium 136 L (137-145) mmol/L Potassium 5.3 H (3.5-5.1) mmol/L Carbon Dioxide 20 L (22-30) mmol/L BUN 42 H (9-20) mg/dL Glucose 109 H (74-99) mg/dL POC Glucose (mg/dL) 128 H (70-110) mg/dL Magnesium 2.4 H (1.6-2.3) mg/dL Total Bilirubin (0.2-1.3) mg/dL ALT (4-49) U/L C-Reactive Protein (<1.0) mg/dL Albumin (3.5-5.0) g/dL Urine Protein (Negative) Ur Leukocyte Esterase (Negative) Amorphous Sediment (None) /hpf Urine Bacteria (None) /hpf Urine Mucus (None) /hpf 03/10/23 03/10/23 Range/Units 07:31 12:24 WBC (3.8-10.6) k/uL Neutrophils # (1.3-7.7) k/uL Monocytes # (0-1.0) k/uL Sodium 136 L (137-145) mmol/L Potassium 5.5 H (3.5-5.1) mmol/L Carbon Dioxide 21 L (22-30) mmol/L BUN 50 H (9-20) mg/dL Glucose 118 H (74-99) mg/dL POC Glucose (mg/dL) (70-110) mg/dL Magnesium (1.6-2.3) mg/dL Total Bilirubin 1.9 H (0.2-1.3) mg/dL ALT 66 H (4-49) U/L C-Reactive Protein 4.1 H (<1.0) mg/dL Albumin 3.3 L (3.5-5.0) g/dL Urine Protein Trace H (Negative) Ur Leukocyte Esterase Small H (Negative) Amorphous Sediment Rare H (None) /hpf Urine Bacteria Rare H (None) /hpf Urine Mucus Rare H (None) /hpf Assessment and Plan Assessment: * 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 * Acute metabolic encephalopathy likely from severe pneumonia and West Nile virus. * SIRS, pneumonia * Acute rhabdomyolysis, resolving, most recent CK 719. * MRI cervical spine showed moderate spinal stenosis at C3-C4 level. * Generalized weakness, multifactorial, due to above conditions. * Elevated cardiac enzymes * New onset atrial fibrillation currently on Eliquis. * History of bilateral shoulder pain/arthritis * History of bilateral knee replacement. Plan: * Patient is clinically not much improved. Continues to be severely en cephalopathic. We will start decreasing dose of Keppra. He can currently on Keppra 750 mg twice a day. We will decrease the dose to 500 mg twice a day and rapidly taper off. Family in agreement. Patient never had a seizure. His tremors likely related to West Nile virus. He had EEG performed twice, which did not reveal any epileptiform activity. * MRI Brain w/ and w/o: Was reported as no evidence for encephalitis. No evidence of intracranial mass, acute/subacute infarct or abnormal enhancement. Nonspecific white matter changes, likely related to small vessel ischemic disease. * Repeat EEG performed 03/01/2023 was abnormal due to background slowing of moderate degree consistent with encephalopathy. No epileptiform activity was seen. When compared to the initial EEG from 02/24/2023, the background seems to have gotten worse. * Chest x-ray performed today revealed significant improvement in the appearance of interstitial and previous left basilar opacity. There may be underlying COPD. Similar tortuous/ectatic thoracic aorta. No definite acute process. Pulmonary, ID and cardiology on on board. Patient has completed course of IV antibiotics with Zosyn. Patient has been started on Diflucan for oral candidiasis * CSF performed 02/24/2023 was colorless and clear. CSF glucose 52, protein 86 (12-60). WBC count 4, RBCs 358. Comprehensive viral detection negative. 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 For west nile it is usually supportive care. * MRI Cervical spine w/ and w/o: Is reported as mild to moderate multilevel degenerative disc disease with scattered facet and uncovertebral joint. Appendectomy. Degenerative grade 1 anterolisthesis C7 to T1. Moderate focal signal canal stenosis at C3-C4 with abutment and flattening of both the dorsal and ventral cord. Sagittal FLAIR sequence suggest some focal cord edema here. Correlate for myelopathic symptoms. The axial images are essentially nondiagnostic due to patient motion. Unable to adequately assess then neuroforamen. Dr. Lopez has consulted the orthopedic surgery team and they evaluated patient and no surgical intervention. On my review of MRI, there is moderate spinal stenosis at C3 4 level. No significant cord signal changes. * Cardiology on board for new onset atrial fibrillation. Patient currently on Eliquis. * Discussed with patient's family in detail.
--- NOTE | 2023-03-14 09:50 | P.PN ---
Subjective Progress Note Date: 03/12/23 03/12/2023 patient was seen for follow-up. Patient's family members are present. Patient overall remained same. He nods "no" for headache he is slightly more awake since decreasing the dose of Keppra. 03/10/2023: Patient was seen for a follow-up. Patient's family members were present. They mentioned that patient was getting better when the shunt was receiving IV vitamins and been patient received IVIG. They were recommending IV vitamin D, zinc and some other vitamins. I informed that vitamin D excess can produce toxicity. Likewise zinc is typically given orally. Patient clinically not much change. Telemetry monitoring showing sinus rhythm with sinus bradycardia in the 40s, with some PVCs, PACs. Previously had SVT and A. fib. 03/09/2023: Patient was seen for follow-up. Patient's family members are present. Patient over the last 1 week has been followed up by Dr. Jose G Lopez. Please refer to his notes for details. 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 Family members states that patient is not much better. He is talking very minimal. Last week he was trying to talk. However he is not speaking much now. Patient apparently also has received 3 days of IVIG. 03/01/2023: Patient was seen for a follow-up. Patient's older daughter, and patient's 2 sons were present today. Patient's daughter believes that he was much more awake earlier today, with eyes were more widely open. He did not talk, but did new walked was around. Looking at the family more obviously. Patient's family has mentioned that patient does work in the yard, cuts his own grass, and on the Day weekend, the event to watch the [employer] game. He regularly goes out for a walk with his . He may have been exposed to mosquitoes. Patient was fine until Thursday when he stopped talking and presented to the ER. Objective - Vital Signs Vital signs: Vital Signs Temp 98.8 F 03/12/23 16:00 Pulse 74 03/12/23 16:00 Resp 18 03/12/23 16:00 BP 110/56 03/12/23 16:00 Pulse Ox 97 03/12/23 16:00 FiO2 50 03/05/23 08:14 Intake & Output 1003/12/23 03/12/23 18:59 06:59 18:59 Intake Total 1033 664 Output Total 1050 600 Balance -17 -600 664 Weight 92 kg Intake: IV 120 Sodium Chloride 0.9% 1, 120 000 ml @ 20 mls/hr IV . Q24H [facility] Rx#:[id number] Tube Feeding 913 664 Output: Urine 1050 600 Other: Voiding Method External Catheter External Catheter External Catheter # Bowel Movements 1 1 - Exam Patient is obviously encephalopathic. Patient is lethargic, responds to calling his name. He is slightly more awake. He slightly smiles. Patient's family trying to remove some dried sputum in his mouth. Patient does have NG tube for feeding. Pupils are equal, round and reacting. Visual myers could not be tested. Face is symmetric. Patient did not cooperate with muscle strength testing. Patient becomes very responsive to movement of the upper extremities because of severe pain in the shoulder from previous shoulder issues. He is very groggy. Patient's inspector process is equal. His examination is otherwise unchanged, not much improved. 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 * Acute metabolic encephalopathy likely from severe pneumonia and West Nile virus. * SIRS, pneumonia * Acute rhabdomyolysis, resolving, most recent CK 719. * MRI cervical spine showed moderate spinal stenosis at C3-C4 level. * Generalized weakness, multifactorial, due to above conditions. * Elevated cardiac enzymes * New onset atrial fibrillation currently on Eliquis. * History of bilateral shoulder pain/arthritis * History of bilateral knee replacement. Plan: * We will decrease Keppra further down to 250 mg twice a day. Patient slightly more aware and alert as compared to yesterday. However he continues to be severely encephalopathic. Patient was on Keppra 750 mg twice a day and was started taper down on 03/10/2023. Family in agreement. Patient never had a seizure. His tremors likely related to West Nile virus. He had EEG performed twice, which did not reveal any epileptiform activity. * Patient continues to be severely encephalopathic. Patient to undergo PEG tube placement in the morning. Surgery consulted. Discussed with ID about repeat lumbar puncture, but believes that it will not change the management. There is only supportive care for West Nile virus. Patient is also on Eliquis for atrial fibrillation. Holding anticoagulation poses risk for strokes. * MRI Brain w/ and w/o: Was reported as no evidence for encephalitis. No evidence of intracranial mass, acute/subacute infarct or abnormal enhancement. Nonspecific white matter changes, likely related to small vessel ischemic disease. * Repeat EEG performed 03/01/2023 was abnormal due to background slowing of moderate degree consistent with encephalopathy. No epileptiform activity was seen. When compared to the initial EEG from 02/24/2023, the background seems to have gotten worse. * Chest x-ray performed today revealed significant improvement in the appearance of interstitial and previous left basilar opacity. There may be underlying COPD. Similar tortuous/ectatic thoracic aorta. No definite acute process. Pulmonary, ID and cardiology on on board. Patient has completed course of IV antibiotics with Zosyn. Patient has been started on Diflucan for oral nara diasis. Patient is now also started on Augmentin. ID following closely. * CSF performed 02/24/2023 was colorless and clear. CSF glucose 52, protein 86 (12-60). WBC count 4, RBCs 358. Comprehensive viral detection negative. 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 For west nile it is usually supportive care. * MRI Cervical spine w/ and w/o: Is reported as mild to moderate multilevel degenerative disc disease with scattered facet and uncovertebral joint. Appendectomy. Degenerative grade 1 anterolisthesis C7 to T1. Moderate focal signal canal stenosis at C3-C4 with abutment and flattening of both the dorsal and ventral cord. Sagittal FLAIR sequence suggest some focal cord edema here. Correlate for myelopathic symptoms. The axial images are essentially nondiagnostic due to patient motion. Unable to adequately assess then neuroforamen. Dr. Lopez has consulted the orthopedic surgery team and they evaluated patient and no surgical intervention. On my review of MRI, there is moderate spinal stenosis at C3 4 level. No significant cord signal changes. * Cardiology on board for new onset atrial fibrillation. Patient currently on Eliquis. * Discussed with patient's family in detail.
--- NOTE | 2023-03-14 09:54 | P.PN ---
Subjective Progress Note Date: 03/13/23 03/13/2023: Patient was seen for a follow-up. Family members were not present today. Patient is much more alert and awake. He is trying to make some sounds, but unintelligible. His mouth has dried phlegm. Coated tongue and some lips. Patient continues to be severely encephalopathic. 03/12/2023 patient was seen for follow-up. Patient's family members are present. Patient overall remained same. He nods "no" for headache he is slightly more awake since decreasing the dose of Keppra. 03/10/2023: Patient was seen for a follow-up. Patient's family members were present. They mentioned that patient was getting better when the shunt was receiving IV vitamins and been patient received IVIG. They were recommending IV vitamin D, zinc and some other vitamins. I informed that vitamin D excess can produce toxicity. Likewise zinc is typically given orally. Patient clinically not much change. Telemetry monitoring showing sinus rhythm with sinus bradycardia in the 40s, with some PVCs, PACs. Previously had SVT and A. fib. 03/09/2023: Patient was seen for follow-up. Patient's family members are present. Patient over the last 1 week has been followed up by Dr. Jose G Lopez. Please refer to his notes for details. 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 Family members states that patient is not much better. He is talking very minimal. Last week he was trying to talk. However he is not spea lv much now. Patient apparently also has received 3 days of IVIG. 03/01/2023: Patient was seen for a follow-up. Patient's older daughter, and patient's 2 sons were present today. Patient's daughter believes that he was much more awake earlier today, with eyes were more widely open. He did not talk, but did new walked was around. Looking at the family more obviously. Patient's family has mentioned that patient does work in the yard, cuts his own grass, and on the Labor Day weekend, the event to watch the grandson's football game. He regularly goes out for a walk with his . He may have been exposed to mosquitoes. Patient was fine until Thursday when he stopped talking and presented to the ER. Objective - Vital Signs Vital signs: Vital Signs Temp 98.0 F 03/13/23 16:00 Pulse 80 03/13/23 16:00 Resp 18 03/13/23 16:00 BP 130/68 03/13/23 16:00 Pulse Ox 96 03/13/23 16:00 FiO2 50 03/05/23 08:14 Intake & Output 03/12/23 03/13/23 03/13/23 18:59 06:59 18:59 Intake Total 664 996 662 Output Total 750 650 700 Balance -86 346 -38 Weight 92 kg Intake: Tube Feeding 664 996 662 Output: Urine 750 650 700 Other: Voiding Method External Catheter External Catheter External Catheter # Voids 1 # Bowel Movements 1 0 - Exam Patient is much more alert and awake today. He is smiling. His affect is slightly abnormal. No obvious seizure-like activity noted. Patient continues to be obviously encephalopathic. Patient does have NG tube for feeding. Pupils are equal, round and reacting. Visual myers could not be tested. Face is symmetric. Patient did not cooperate with muscle strength testing. Movie Shot Camera Operator is equal bilaterally. Patient is very tender to moving his upper arms at the shoulders. - Labs CBC & Chem 7: 03/14/23 05:45 03/14/23 06:00 Labs: Abnormal Lab Results - Last 24 Hours (Table) 03/12/23 03/13/23 03/13/23 Range/Units 18:18 05:52 07:08 WBC 15.4 H (3.8-10.6) k/uL RBC 3.94 L (4.30-5.90) m/uL Sodium (137-145) mmol/L BUN (9-20) mg/dL Glucose (74-99) mg/dL POC Glucose (mg/dL) 117 H 117 H (70-110) mg/dL Total Bilirubin (0.2-1.3) mg/dL ALT (4-49) U/L Albumin (3.5-5.0) g/dL 03/13/23 03/13/23 Range/Units 07:08 12:09 WBC (3.8-10.6) k/uL RBC (4.30-5.90) m/uL Sodium 136 L (137-145) mmol/L BUN 36 H (9-20) mg/dL Glucose 115 H (74-99) mg/dL POC Glucose (mg/dL) 129 H (70-110) mg/dL Total Bilirubin 1.4 H (0.2-1.3) mg/dL ALT 62 H (4-49) U/L Albumin 3.4 L (3.5-5.0) g/dL Microbiology - Last 24 Hours (Table) 03/10/23 10:10 Blood Culture - Preliminary Blood Assessment and Plan Assessment: * 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 * Acute metabolic encephalopathy likely from severe pneumonia and West Nile virus. * SIRS, pneumonia * Acute rhabdomyolysis, resolving, most recent CK 719. * MRI cervical spine showed moderate spinal stenosis at C3-C4 level. * Generalized weakness, multifactorial, due to above conditions. * Elevated cardiac enzymes * New onset atrial fibrillation currently on Eliquis. * History of bilateral shoulder pain/arthritis * History of bilateral knee replacement. Plan: * Stop Keppra today. Patient slightly more aware and alert as compared to yesterday. However he continues to be severely encephalopathic. He is trying to make some sounds, but could not understand. Patient was on Keppra 750 mg twice a day and was started taper down on 03/10/2023. Family in agreement. Patient never had a seizure. His tremors likely related to West Nile virus. He had EEG performed twice, which did not reveal any epileptiform activity. * Patient continues to be severely encephalopathic. Patient to undergo PEG tube placement in the morning. Surgery consulted. Discussed with ID about repeat lumbar puncture, but believes that it will not change the management. There is only supportive care for West Nile virus. Patient is also on Eliquis for atrial fibrillation. Holding anticoagulation poses risk for strokes. * MRI Brain w/ and w/o: Was reported as no evidence for encephalitis. No evidence of intracranial mass, acute/subacute infarct or abnormal enhancement. Nonspecific white matter changes, likely related to small vessel ischemic disease. * Repeat EEG performed 03/01/2023 was abnormal due to background slowing of moderate degree consistent with encephalopathy. No epileptiform activity was seen. When compared to the initial EEG from 02/24/2023, the background seems to have gotten worse. * Chest x-ray performed today revealed significant improvement in the appearance of interstitial and previous left basilar opacity. There may be underlying COPD. Similar tortuous/ectatic thoracic aorta. No definite acute process. Pulmonary, ID and cardiology on on board. Patient has completed course of IV antibiotics with Zosyn. Patient has been started on Diflucan for oral candidiasis. Patient is now also started on Augmentin. ID following closely. * CSF performed 02/24/2023 was colorless and clear. CSF glucose 52, protein 86 (12-60). WBC count 4, RBCs 358. Comprehensive viral detection negative. 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 For west nile it is usually supportive care. * MRI Cervical spine w/ and w/o: Is reported as mild to moderate multilevel degenerative disc disease with scattered facet and uncovertebral joint. Appendectomy. Degenerative grade 1 anterolisthesis C7 to T1. Moderate focal signal canal stenosis at C3-C4 with abutment and flattening of both the dorsal and ventral cord. Sagittal FLAIR sequence suggest some focal cord edema here. Correlate for myelopathic symptoms. The axial images are essentially nondiagnostic due to patient motion. Unable to adequately assess then neuroforamen. Dr. Lopez has consulted the orthopedic surgery team and they evaluated patient and no surgical intervention. On my review of MRI, there is moderate spinal stenosis at C3 4 level. No significant cord signal changes. * Cardiology on board for new onset atrial fibrillation. Patient currently on Eliquis.
--- NOTE | 2023-03-14 10:31 | P.PCN ---
Date of Procedure: 03/14/23 Preoperative Diagnosis: Acute aspiration pneumonia Postoperative Diagnosis: Same Procedure(s) Performed: Left subclavian triple-lumen catheter insertion Anesthesia: local Surgeon: Slava Kenyon Estimated Blood Loss (ml): 0 Pathology: none sent Condition: critical Disposition: ICU Operative Findings: Indication: Hemodynamic monitoring/Intravenous access. A time-out was completed verifying correct patient, procedure, site, positioning, and implant(s) or special equipment if applicable. The patient was placed in a dependent position appropriate for central line placement based on the vein to be cannulated. The patients left chest was prepped and draped in sterile fashion. 1% Lidocaine was used to anesthetize the surrounding skin area. A triple lumen 9F Cordis catheter was introduced into the left subclavian vein using Seldinger technique. The catheter was threaded smoothly over the guide wire and appropriate blood return was obtained. Each lumen of the catheter was evacuated of air and flushed with sterile saline. The catheter was then sutured in place to the skin and a sterile dressing applied. Perfusion to the extremity distal to the point of catheter insertion was checked and found to be adequate. The patient tolerated the procedure well and there were no complications.
--- NOTE | 2023-03-14 10:37 | P.PN ---
Subjective Progress Note Date: 03/14/23 Principal diagnosis: Fever Patient is a 77-year-old male presenting to the hospital y after the patient was found to be unresponsive by the , patient has been febrile initial testing negative including LP which was only mildly elevated protein. 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 On today's evaluation that is 03/14/2023, the patient did have a low-grade fever 100.2 yesterday afternoon and no fever has been recorded since then, the patient is currently on the vent on 50% FiO2 and is requiring pressor support to maintain his blood pressure no diarrhea reported by the nursing staff patient white count is up to 36.4, creatinine is 1.08 Objective - Vital Signs Vital signs: Vital Signs Temp 98.9 F 03/14/23 04:00 Pulse 68 03/14/23 07:00 Resp 28 H 03/14/23 07:00 BP 125/77 03/14/23 07:00 Pulse Ox 97 03/14/23 07:00 FiO2 50 03/14/23 07:57 Intake & Output 03/13/23 03/14/23 03/14/23 18:59 06:59 18:59 Intake Total 662 706.262 59.8 Output Total 700 315 Balance -38 391.262 59.8 Weight 93.1 kg Intake: IV 590 Sodium Chloride 0.9% 1, 450 000 ml @ 150 mls/hr IV . Q6H40M HARIS Rx#:[id number] Sodium Chloride 0.9% 1, 140 000 ml @ 20 mls/hr IV . Q24H HARIS Rx#:[id number] Intake, IV Titration 116.262 59.8 Amount Norepinephrine 4 mg In 113.042 Sodium Chloride 0.9% 250 ml @ 0.03 MCG/KG/MIN 10. 516 mls/hr IV .Q24H HARIS Rx#:[id number] propofoL 1,000 mg In 3.22 59.8 Empty Bag 1 bag @ 15 MCG/ KG/MIN 8.28 mls/hr IV . Q12H5M HARIS Rx#:[id number] Tube Feeding 662 Output: Urine 700 315 Other: Voiding Method External Catheter Indwelling Catheter # Voids 1 ABP, PAP, CO, CI - Last Documented Arterial Blood Pressure 113/55 - Exam GENERAL DESCRIPTION: An elderly male intubated on the vent RESPIRATORY SYSTEM: Unlabored breathing , coarse breath sounds bilaterally HEART: S1 S2 regular rate and rhythm , ABDOMEN: Soft , no tenderness EXTREMITIES: No edema feet - Labs CBC & Chem 7: 03/14/23 05:45 03/14/23 06:00 Labs: Abnormal Lab Results - Last 24 Hours (Table) 03/13/23 03/13/23 03/13/23 Range/Units 12:09 18:34 23:48 WBC (3.8-10.6) k/uL RBC (4.30-5.90) m/uL Hgb (13.0-17.5) gm/dL Hct (39.0-53.0) % ABG pH (7.35-7.45) ABG pCO2 (35-45) mmHg ABG pO2 (83-108) mmHg ABG Total CO2 (19-24) mmol/L ABG O2 Saturation (94-97) % Carbon Dioxide (22-30) mmol/L BUN (9-20) mg/dL Glucose (74-99) mg/dL POC Glucose (mg/dL) 129 H 122 H 135 H (70-110) mg/dL Calcium (8.4-10.2) mg/dL Total Bilirubin (0.2-1.3) mg/dL AST (17-59) U/L ALT (4-49) U/L Albumin (3.5-5.0) g/dL 03/13/23 03/14/23 03/14/23 Range/Units 23:55 01:58 03:20 WBC (3.8-10.6) k/uL RBC (4.30-5.90) m/uL Hgb (13.0-17.5) gm/dL Hct (39.0-53.0) % ABG pH 7.49 H 7.48 H (7.35-7.45) ABG pCO2 32 L 30 L (35-45) mmHg ABG pO2 122 H >400 H (83-108) mmHg ABG Total CO2 25 H (19-24) mmol/L ABG O2 Saturation 98.4 H 100.0 H (94-97) % Carbon Dioxide (22-30) mmol/L BUN (9-20) mg/dL Glucose (74-99) mg/dL POC Glucose (mg/dL) 111 H (70-110) mg/dL Calcium (8.4-10.2) mg/dL Total Bilirubin (0.2-1.3) mg/dL AST (17-59) U/L ALT (4-49) U/L Albumin (3.5-5.0) g/dL 03/14/23 03/14/23 03/14/23 Range/Units 05:30 05:45 06:00 WBC 36.4 H (3.8-10.6) k/uL RBC 3.50 L (4.30-5.90) m/uL Hgb 11.8 L (13.0-17.5) gm/dL Hct 34.8 L (39.0-53.0) % ABG pH (7.35-7.45) ABG pCO2 (35-45) mmHg ABG pO2 (83-108) mmHg ABG Total CO2 (19-24) mmol/L ABG O2 Saturation (94-97) % Carbon Dioxide 20 L (22-30) mmol/L BUN 46 H (9-20) mg/dL Glucose 128 H (74-99) mg/dL POC Glucose (mg/dL) 155 H (70-110) mg/dL Calcium 8.3 L (8.4-10.2) mg/dL Total Bilirubin 3.4 H (0.2-1.3) mg/dL AST 73 H (17-59) U/L ALT 88 H (4-49) U/L Albumin 2.9 L (3.5-5.0) g/dL Microbiology - Last 24 Hours (Table) 03/10/23 10:10 Blood Culture - Preliminary Blood Assessment and Plan (1) Fever Current Visit: Yes Status: Acute Code(s): R50.9 - FEVER, UNSPECIFIED SNOMED Code(s): 464517676 (2) Pneumonia Current Visit: Yes Status: Acute Code(s): J18.9 - PNEUMONIA, UNSPECIFIED ORGANISM SNOMED Code(s): 377683542 (3) West Nile Virus infection Current Visit: Yes Status: Acute Code(s): A92.30 - WEST NILE VIRUS INFECTION, UNSPECIFIED SNOMED Code(s): 236824961 Plan: 1patient with encephalitis/meningitis ,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 please excuse any grammatical, word or spelling errors. Time with Patient: Greater than 30
[2023-03-14 10:50] LABS: Glucose,Whole Blood 143 mg/dL (70-110)
--- NOTE | 2023-03-14 11:23 | XR ---
EXAMINATION TYPE: XR chest 1V confirm line plcmt DATE OF EXAM: 03/14/2023 11:08 AM CLINICAL INDICATION:Male, 77 years old with history of central line placement; COMPARISON: Chest radiographs from 03/14/2023 TECHNIQUE: XR chest 1V confirm line plcmt Frontal view of the chest. FINDINGS: Lungs/Pleura: There is no evidence of pleural effusion, focal consolidation, or pneumothorax. Pulmonary vascularity: Unremarkable. Heart/mediastinum: Cardiomediastinal silhouette is unremarkable. Musculoskeletal: Degenerative changes of the shoulder joints. Other findings: None Lines/Tubes: Endotracheal tube with distal tip 5.3 cm above the trell. Nasogastric tube with its distal tip and side-port projecting under the diaphragm. Left-sided PICC with distal tip at the superior vena cava/brachiocephalic confluence. IMPRESSION: 1. Left PICC in appropriate position. 2. Nasogastric tube in appropriate position. 3. Endotracheal tube in appropriate position. 4. No acute cardiopulmonary disease/process.
--- NOTE | 2023-03-14 12:06 | P.PN ---
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 Patient has failed a swallowing eval's. Surgical service consulted for PEG tube placement. Afebrile PHYSICAL EXAM: VITAL SIGNS: Reviewed. GENERAL: Well-developed in no acute distress. ABDOMEN: Soft. Nondistended. Nontender. NEUROLOGIC: Awake ASSESSMENT: 1. Dysphagia 2. Mild protein calorie malnutrition 3. Failed swallow eval 4. West Nile virus encephalitis PLAN: -Patient scheduled for EGD with PEG tube placement on 03/16/[address] Whipple -Hold Fernandez starting today -Hold Tube feeds after midnight on Thursday Physical Exam Gen-NAD CVS-RRR Lungs-NLB Abdomen-soft, NTND Ext- no edema Estuardo Nicole DO
--- NOTE | 2023-03-14 12:08 | XR ---
EXAM: XR chest 1V portable CLINICAL INDICATION:Male, 77 years old with history of Tube placement; [facility] COMPARISON: 03/14/2020 2:55 AM and before TECHNIQUE: Chest single view. FINDINGS: Lines/tubes/devices: ET tube 3.5 cm above the trell. NG tube extends into the left upper quadrant wi th tip and sidehole over the proximal to mid stomach. EKG leads overlie the chest. No indwelling elsy es are seen. Cardiomediastinum: Cardiac silhouette appears stable, heart size appears within normal limits. Somewhat tortuous aorta. Stable mediastinal silhouette. Vasculature: No increased pulmonary vasculature. Lungs/pleura: Slightly improved mild right upper lobe infiltrate. No new or worsening consolidation, pleural effusi on, or pneumothorax is seen. Bones/soft tissues: Osseous structures appear unchanged. 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 Regional soft tissues appear unremarkable. IMPRESSION: 1. Lines and tubes in place, as above. 2. Slightly improved mild right upper lobe infiltrate.
[2023-03-14] MEDS: IPRATROPIUM-ALBUTEROL 3 ML NEB INHALATION SCH ×2 (12:27→19:33)
[2023-03-14] MEDS: METOPROLOL TARTRATE 50 MG TAB PO SCH (15:55)
[2023-03-14] MEDS ORDERED: AMIODARONE 360 MG in DEXTROSE 5% IN WATER 200 ML IV ONE ×2 (15:59)
[2023-03-14] MEDS ORDERED: DEXTROSE 5% IN WATER 100 ML with AMIODARONE 150 MG IV ONE (15:59)
[2023-03-14 18:45] LABS: Glucose,Whole Blood 171 mg/dL (70-110)
[2023-03-14] MEDS: AMIODARONE 450 MG in DEXTROSE 5% IN WATER 250 ML IV SCH ×2 (21:37)
[2023-03-15] MEDS: PIPERACILLIN-TAZOBACTAM 3.375 GM in SODIUM CHLORIDE 0.9% 100 ML IVPB SCH ×3 (01:13→16:02)
--- NOTE | 2023-03-15 04:02 | PN ---
PROGRESS NOTE DATE OF SERVICE: 03/14/2023 I am covering for Dr. Holman. SUBJECTIVE: This is a 77-year-old gentleman with a past medical history of multiple medical problems, was admitted with possible West Nile virus infection, also had aspiration and episode of pneumonia. The patient has acute hypoxic respiratory failure. The patient on mechanical ventilation. At this time, chest x-ray which was reviewed personally by me showed some infiltrates. The patient is unresponsive. PAST MEDICAL HISTORY: Reviewed. REVIEW OF SYSTEMS: Could not be taken. CURRENT MEDICATIONS: Reviewed include IV Zosyn. PHYSICAL EXAMINATION: VITAL SIGNS: Pulse is 78, blood pressure 110/70, respirations 28. Vent settings are noted. HEENT: Conjunctivae normal. NECK: No JVD. CARDIOVASCULAR: S1, S2. RESPIRATIONS: A few scattered rhonchi. ABDOMEN: Soft. NERVOUS SYSTEM: Nonfocal. LABORATORY DATA: Reviewed. ASSESSMENT: 1. Acute aspiration pneumonia bilateral with acute hypoxic respiratory failure, on mechanical ventilation. 2. 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 3. Acute rhabdomyolysis. 4. Elevated AST, ALT. 5. Elevated WBC. 6. Anemia. 7. Full code. RECOMMENDATIONS: Recommend to continue current management and continue symptomatic treatment. Continue the broad-spectrum IV antibiotics and continue rest of medications. Multiple cultures are negative so far. Repeat labs tomorrow. Repeat chest x-ray and bronchodilators. Closely follow with Pulmonary. Further recommendations to follow. MMODL / WALTERN: [id number] /
[2023-03-15 05:19] LABS: HCT 29.9 % (39.0-53.0); HGB 10.4 gm/dL (13.0-17.5); MCH 34.8 pg (25.0-35.0); MCHC 34.8 g/dL (31.0-37.0); Macrocytosis Slight; Mean Platelet Volume 7.9; Platelet Count 199 k/uL (150-450); RBC 2.99 m/uL (4.30-5.90); RDW 13.8 % (11.5-15.5); WBC 12.8 k/uL (3.8-10.6)
[2023-03-15 05:23] LABS: African American GFR (CKD) >90 (>60 ml/min/1.73 sqM); Anion Gap 6 mmol/L; Blood Urea Nitrogen 29 mg/dL (9-20); Calcium 7.8 mg/dL (8.4-10.2); Carbon Dioxide 19 mmol/L (22-30); Chloride 112 mmol/L (98-107); Glucose 141 mg/dL (74-99); Non-African American GFR(CKD) >90 (>60 ml/min/1.73 sqM); Sodium 137 mmol/L (137-145)
[2023-03-15] MEDS: SODIUM CHLORIDE 0.9% 1,000 ML IV SCH ×3 (05:31→08:39)
[2023-03-15 06:12] LABS: ABG Base Excess -4.1 mmol/L; ABG HCO3 20 mmol/L (21-25); ABG Oxygen Saturation 99.3 % (94-97); ABG PCO2 30 mmHg (35-45); ABG PH 7.44 (7.35-7.45); ABG PO2 174 mmHg (83-108); ABG TCO2 21 mmol/L (19-24)
[2023-03-15 06:14] LABS: Allen Test Performed? No
[2023-03-15 06:25] LABS: Glucose,Whole Blood 158 mg/dL (70-110)
[2023-03-15] MEDS: IPRATROPIUM-ALBUTEROL 3 ML NEB INHALATION SCH ×3 (08:05→19:59)
--- NOTE | 2023-03-15 08:18 | P.PN ---
Subjective Progress Note Date: 03/15/23 The patient is seen today 03/04/2023 in follow-up in the intensive care unit. Currently maintaining good O2 saturations in the 90s on 3 L/m per nasal cannula. Remains on Cardizem drip at 5 mg per hour. Normal saline at 20 ML's per hour. He is being nourished via nasogastric tube with vital AF at 75 ML's per hour with a goal of 83 ML's per hour. He did utilize BiPAP last night 19/01 and 50% FiO2. He had some episodes of atrial fibrillation with RVR again. He also had an episode of respiratory distress. Arterial blood gases revealed a pO2 of 225, pCO2 40 and a pH of 7.48. Chest x-ray did not reveal any acute changes. He remains slow to respond. His speech remains quite garbled. Currently in atrial fibrillation with a controlled ventricular rate. Sodium 140. Potassium 3.5. Bicarb 30. BUN 19. Creatinine 0.66. AST 84. ALT 92. The patient is seen today 03/05/2023 in follow-up in the intensive care unit. Neurologically remains about the same. Arousable, garbled speech. Afebrile. Maintaining good O2 saturations in the 90s on room air. Blood cultures, urine culture, cerebrospinal fluid cultures and repeat blood cultures have all been negative. 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 White count 10.0. Hemoglobin 12.9. Platelets 173. Sodium 139. Potassium 4.1. Bicarb 30. BUN 21. Creatinine 0.83. Glucose 100. Pro-calcitonin 0.07. He is currently on Zo syn per ID service. Normal saline at KVO. He is being nourished via nasogastric tube with vital AF at 83 ML's per hour which is goal. He remains in atrial fibrillation. He is on beta blockers and anticoagulated with Eliquis. The patient is seen today 03/06/2023 in follow-up in the intensive care unit. He is arousable. Able to state his name. Continues with garbled speech. Somewhat slow to respond. He is maintaining good O2 saturations in the 90s on room air. He has normal saline at 20 ML's per hour. Mean #nourished via nasogastric tube with vital AF at 83 ML's per hour which is goal. He was initiated on IVIG yesterday and the plan is for a total of 3 doses. His IgG2 was 172. IgE 338. He was also initiated on vitamins and probiotics. He is going for a MRI of the C-spine today per neurology. White count 8.6. Hemoglobin 12.7. Sodium 140. Potassium 4.2. Bicarb 26. BUN 22. Creatinine 0.69. Glucose 121. AST 59. ALT 92. Albumin 2.7. Currently in sinus rhythm. He is anticoagulated with Eliquis. Antibiotics in the form of Zosyn. The patient is seen today 03/07/2023 in follow-up in the intensive care unit. He is a bit more alert today. Still with garbled speech. Still waxing and waning. He is maintaining good O2 saturations in the upper 90s on room air. He's currently afebrile. Hemodynamically stable. Urine and blood, cerebrospinal fluid and follow up blood cultures have all revealed no growth. Testing positive for West Nile. 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 Moderate focal spinal canal stenosis. Continues to receive IVIG. [place] on Zosyn. Remains on vitamin supplements. Anticoagulated with Eliquis. Nasogastric tube remains in place. He is on vital AF at 83 ML's per hour which is goal. Progress note dated 03/08/2023. 77-year-old male that we have been seen in the intensive care unit, the entire week. The patient did test positive for West Nile virus. The patient's primary issue was that of encephalopathy, which has been slowly improving. Currently, the patient is seen in room 354. He is getting vital high protein at 83 mL an hour, via an NG tube. The patient not on any supplemental oxygen, and is not receiving any additional fluids. Zosyn is discontinued. The patient did receive 3 doses of IVIG, as per infectious diseases. White count 11.9, hemoglobin 13.9, hematocrit 41.1, with a normal platelet count. Sodium 138, potassium 5.2, chlorides 107, CO2 22, BUN 27 and creatinine 0.70. On today's evaluation of 2022, I'm seeing the patient for a follow-up. The patient is still lethargic, difficult to to communicate with. Nevertheless, upon repeated stimulation, he is able to follow some simple commands. He is calm and comfortable. Resting comfortably in bed. No signs of any overt respiratory distress. No fever. No seizure activity. The patient is h emodynamically stable. The patient is receiving enteral feeding for nutritional support and the patient is currently on vitamin HP at the rate of 83 mL an hour. The patient has completed 3 doses of IVIG treatment. Neurology is on the case. Infectious diseases also on the case. The patient remains on Keppra 750 mg IV every 12 hours. The patient is afebrile. The blood work shows a dull discom fort 13.5, he was 14.5 and a platelet count of 221. BUN is at 30 with a creatinine of 0.7 and a sodium level is at 138. Glucose at 124. On 03/10/2023, the patient's condition is essentially unchanged. Lethargic, , encephalopathic, occasionally following some simple commands although his responses not consistent. Continues to receive enteral feeding for nutritional support. NG tube is in place. No fever. No chills. No other complaints. Electrolytes show a potassium level of 5.5, sodium is at 136, BUN is a 50 with a creatinine of 0.8. LFTs are within normal limits. The patient is on Cozaar for blood pressure control 25 mg by mouth daily. The patient is also taking Cardizem 30 mg by mouth 3 times a day. The patient remains on Keppra. Neurology on the case. The patient is on normal saline at rate of 20 mL an hour. On today's evaluation of 03/11/2023, the patient is noted to be slightly more awake compared to yesterday. He is answering questions by saying yes and no. No focal neurological deficits. No seizure activity. No fever. His swallow evaluation to be done today. Meanwhile, the patient still has an NG tube in place for enteral feeding and nutritional support. No other new complaints otherwise for now. I do feel that neurologically the patient is more alert. BUN is 41 with a creatinine of 0.7, the patient is a 16.8 with a hemoglobin 13.9. On 03/12/2022, the neurologically condition of this patient is the same as yesterday. Obviously, he is awake and is doing some communication. This is minimal. He was unable to swallow and NG tube was kept in place. I believe that he may do better with a PEG tube insertion as the patient's neurologic recovery is not absolutely guaranteed and the patient may take a long time for recovery. As such, securing a PEG tube would be a reasonable option for this patient. The patient otherwise doing well. No specific complaints. No respiratory distress. His overall pulmonary status is stable and the patient is currently on room air oxygen with a pulse ox of 93%. Labs from today shows a white cell count of 17.4, hemoglobin 13, BUN is 37 with a creatinine of 0.7. On 03/13/2023, no change in neurologic functions and the patient remains in the same neurologic status. He continues to receive enteral feeding for nutritional support via an NG tube. The patient will need a PEG tube and this has been te ntatively scheduled to be done on 03/16/2023. Anticoagulation will placed on hold for now. No other complaints. No signs of any respiratory distress. The blood work shows a BUN of 36 with a creatinine of 0.7. The white cell count 15.4 with a hemoglobin of 13 and a platelet count of 218. Blood sugars at 219. The patient will be having a PEG tube insertion for enteral feeding and nutritional support. 03/14/2023, the patient is being seen for a follow-up in the intensive care unit. Events from overnight was noted. The patient had massive aspiration. Apparently the NG tube got misplaced and the patient was having enteral feeding into his lungs. He became acutely short of breath, he went into respiratory distress. He was placed on 100% nonrebreather facemask. He was tried on a BiP AP which she failed and ultimately had to be intubated and placed on a mechanical ventilator. Post intubation, the patient became quite hypotensive. He received a total of 2.5 L of IV fluid and currently he is on normal saline running at the rate of 150 mL an hour. He is sedated with propofol at 25 mcg/kg/m. He is on a mechanical ventilator assist control mode with a rate of 28, tidal volume of 500, FiO2 of 50% with a PEEP of 5. An arterial line was inserted. He will also need a central line. 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 His chest x-ray immediately post aspiration showed some new infiltrates in his right upper lobe. NG tube has been removed. The patient has a orogastric tube in place for now. The patient is currently on IV Zosyn. The chest x-ray reveals new bilateral pulmonary infiltrates more so in the upper lobes. Lung bases are at this p eriod. Orogastric tube is in the stomach. The white cell count is at 36.4, with a hemoglobin of 11.8 and a platelet count of 278. BUN is 46 with a creatinine of 1.08 and sodium levels of 137. Glucose at 128. Urine output is in order of 20 mL an hour. He is currently afebrile. 03/14/2023, the patient is being seen for a follow-up. Remains intubated on a mechanical ventilator. Earlier this morning, he was taken off the pressors and he is currently hemodynamically stable. At the same time, he had an issue with a SVT yesterday. He was given amiodarone and he was bolused and currently is on a maintenance of 0.5 mg/m. His cardiac rhythm is back into sinus rhythm. He remains on propofol which is running at 30 mcg/kg/m. He remains on a mechanical ventilator, assist control mode at the rate of 28, tidal volume of 500, FiO2 of 50% with a PEEP of 5. Blood gas shows improvement in oxygenation with a pH of 7.44 and a pO2 of 174 and a pCO2 of 30. White cell count is down to 12.8. He moglobin is at 10.4 and a platelet count is at 199. BUN is at 29 with a creatinine of 0.6 and the sodium levels is 137. Chest x-ray from yesterday shows limited bibasilar and right sided infiltrate. Orotracheal tube is in a good location. He has a left-sided triple-lumen catheter in place. Adequate urine output. Response to painful stimulation. His encephalopathic due to his underlying West Nile virus encephalitis. Pro-calcitonin level was at 4.25 indicating sepsis. The patient was aggressively resuscitated with IV fluids. IV fluids are currently running with normal saline at rate of 150 mL an hour. As mentioned, he is off pressors. Objective - Vital Signs Vital signs: Vital Signs Temp 98.9 F 03/15/23 04:00 Pulse 75 03/15/23 08:05 Resp 28 H 03/15/23 08:05 BP 114/68 03/15/23 01:00 Pulse Ox 97 03/15/23 07:00 FiO2 50 03/15/23 07:59 Intake & Output 03/14/23 03/15/23 03/15/23 18:59 06:59 18:59 Intake Total 3614.758 2990.688 150 Output Total 835 625 45 Balance 2779.758 2365.688 105 Weight 93.1 kg 100.3 kg Intake: IV 3000 1900 150 Piperacillin-Tazobactam 3 200 100 .375 gm In Sodium Chloride 0.9% 100 ml @ 25 mls/hr IVPB Q8HR [facility] Rx# :[id number] Sodium Chloride 0.9% 1, 1800 1800 150 000 ml @ 150 mls/hr IV . Q6H40M [facility] Rx#:[id number] Sodium Chloride 0.9% 1, 1000 000 ml @ 999 mls/hr IV . Q1H1M [facility] Rx#:[id number] Intake, IV Titration 554.758 350.688 Amount Norepinephrine 4 mg In 394.958 156.158 Sodium Chloride 0.9% 250 ml @ 0.03 MCG/KG/MIN 10. 516 mls/hr IV .Q24H [facility] Rx#:[id number] propofoL 1,000 mg In 159.8 194.53 Empty Bag 1 bag @ 15 MCG/ KG/MIN 8.28 mls/hr IV . Q12H5M [facility] Rx#:[id number] Tube Feeding 650 Other 60 90 Output: Urine 835 625 45 Other: Voiding Method Indwelling Catheter Indwelling Catheter ABP, PAP, CO, CI - Last Documented Arterial Blood Pressure 114/50 - Exam No acute distress, calm and comfortable and the patient is currently intubated on a mechanical ventilator. The patient is on propofol which is Head exam was generally normal. There was no scleral icterus or corneal arcus. Mucous membranes were moist. HEENT examination is grossly unremarkable. Mucous membranes are dry. The patie nt has a left subclavian triple-lumen catheter in place. Neck supple. Full range of motion. No adenopathy thyromegaly or neck vein distention. Cardiovascular examination reveals regular rhythm rate. S1-S2 normal. No S3 or S4. No discernible murmur noted. Lungs reveal clear breath sounds. Breath sounds are equal bilaterally. No adventitious lung sounds including wheezes rhonchi or crackles. Abdominal exam revealed normal bowel sounds. The abdomen was soft, non-tender, and without masses, organomegaly, or appreciable enlargement of the abdominal aorta. Extremities are intact. No cyanosis clubbing or edema. Skin is without rash or lesion. Neurologic examination was encephalopathic and the patient is currently fully sedated on propofol. - Labs CBC & Chem 7: 03/15/23 04:55 03/15/23 04:55 Labs: Abnormal Lab Results - Last 24 Hours (Table) 03/14/23 03/14/23 03/14/23 Range/Units 06:00 10:41 18:43 WBC (3.8-10.6) k/uL RBC (4.30-5.90) m/uL Hgb (13.0-17.5) gm/dL Hct (39.0-53.0) % ABG pCO2 (35-45) mmHg ABG pO2 (83-108) mmHg ABG HCO3 (21-25) mmol/L ABG O2 Saturation (94-97) % Chloride (98-107) mmol/L Carbon Dioxide (22-30) mmol/L BUN (9-20) mg/dL Creatinine (0.66-1.25) mg/dL Glucose (74-99) mg/dL POC Glucose (mg/dL) 143 H 171 H (70-110) mg/dL Calcium (8.4-10.2) mg/dL Procalcitonin 4.25 H (0.02-0.09) ng/mL 03/15/23 03/15/23 03/15/23 Range/Units 04:55 04:55 06:03 WBC 12.8 H (3.8-10.6) k/uL RBC 2.99 L (4.30-5.90) m/uL Hgb 10.4 L (13.0-17.5) gm/dL Hct 29.9 L (39.0-53.0) % ABG pCO2 30 L (35-45) mmHg ABG pO2 174 H (83-108) mmHg ABG HCO3 20 L (21-25) mmol/L ABG O2 Saturation 99.3 H (94-97) % Chloride 112 H (98-107) mmol/L Carbon Dioxide 19 L (22-30) mmol/L BUN 29 H (9-20) mg/dL Creatinine 0.62 L (0.66-1.25) mg/dL Glucose 141 H (74-99) mg/dL POC Glucose (mg/dL) (70-110) mg/dL Calcium 7.8 L (8.4-10.2) mg/dL Procalcitonin (0.02-0.09) ng/mL 03/15/23 Range/Units 06:24 WBC (3.8-10.6) k/uL RBC (4.30-5.90) m/uL Hgb (13.0-17.5) gm/dL Hct (39.0-53.0) % ABG pCO2 (35-45) mmHg ABG pO2 (83-108) mmHg ABG HCO3 (21-25) mmol/L ABG O2 Saturation (94-97) % Chloride (98-107) mmol/L Carbon Dioxide (22-30) mmol/L BUN (9-20) mg/dL Creatinine (0.66-1.25) mg/dL Glucose (74-99) mg/dL POC Glucose (mg/dL) 158 H (70-110) mg/dL Calcium (8.4-10.2) mg/dL Procalcitonin (0.02-0.09) ng/mL Microbiology - Last 24 Hours (Table) 03/14/23 05:12 Gram Stain - Preliminary Sputum Assessment and Plan Plan: Acute hypoxic respiratory failure, currently intubated on a mechanical venti lator, improved oxygenation Acute aspiration pneumonia, limited infiltration and the patient remains on IV Zosyn Acute aspiration of enteral feeding with subsequent respiratory distress and respiratory failure, currently intubated on a mechanical ventilator Acute hypotension probably related to aspiration/aspiration pneumonia and sepsis. The patient is normotensive at this point in time. Is off pressors. Encephalopathy, secondary to the West Nile virus. Initiated on IVIG 3 doses. The encephalopathy was still present prior to him being intubated Acute encephalitis secondary to West Nile virus infection, still symptomatic without focal neurological recovery Acute febrile illness and sepsis, no obvious infectious process identified yet, all cultures have been negative so far. Leukocytosis, resolved, possible aspiration pneumonia. Patient has completed Zosyn therapy.Note that the leukocytosis got worse following his aspiration. The white cell count is again improving. Acute rhabdomyolysis, significantly elevated CPK, improving with hydration, CPK is down to 719. Elevated LFTs, ultrasound showed hepatomegaly. Elevated troponins, possibly related to supply/demand mismatch. Episodic A. fib/SVT currently on an amiodarone drip Plan: Continue ventilator support. The patient will need a PEG tube insertion. Ideally, I should be able to extubate the patient. However, based on his need for enteral feeding and nutritional support and based on his previous history of aspiration while receiving NG tube feeding, I decided to keep him on a mechanical ventilator today as long as there are plans to go a PEG tube first thing in the morning. We'll confirm this with general surgery. Continue IV fluids with normal saline and dropped the fluid rate down to 75 mL an hour Patient is currently on vital AF at the rate of 65 mL Patient was taken off pressors this morning Continue IV Zosyn for now May restart enteral feeding for nutritional support through the OG which is currently in good location The ultimate plan was for this patient to have a PEG tube inserted at the patient was quite encephalopathic and not ready to swallow post West Nile viral encephalitis Start metoprolol and hold anticoagulants for now Change amiodarone to 400 mg by mouth twice a day Hold anticoagulation as the patient was receiving Eliquis Continue Alek Monitor neurological outcome, neurologically more awake, and this will be a very slow recovery and for recovery is not guaranteed. We'll contact general surgery for a PEG tube insertion tomorrow Condition is obviously critical and we'll continue to follow make further recommendations based on his progress. There is a critical care evaluation was done in more than 30 minutes. Time with Patient: Greater than 30
[2023-03-15] MEDS: CHOLECALCIFEROL 125 MCG (5000 IU) TABLET PO SCH (08:54)
[2023-03-15] MEDS: ASCORBIC ACID 500 MG TAB PO SCH (08:54)
[2023-03-15] MEDS: PANTOPRAZOLE 40 MG/10 ML VIAL IVP SCH (08:54)
[2023-03-15] MEDS: FLUCONAZOLE 100 MG TAB PO SCH (08:54)
[2023-03-15] MEDS: LACTOBACILLUS ACIDOPHILUS/PECT 1 EACH CAPSULE PO SCH ×3 (08:55→21:43)
[2023-03-15] MEDS: CHLORHEXIDINE GLUCONATE 15 ML CUP MUCOUS MEM SCH ×2 (08:55→21:43)
[2023-03-15] MEDS: ZINC SULFATE 220 MG CAP PO SCH (08:55)
--- NOTE | 2023-03-15 09:05 | P.PN ---
Progress Note - Text Progress Note Date: 03/15/23 The patient remains in the ICU on the ventilator. There is no acute changes. Patient is scheduled for EGD with PEG tube placement on Thursday due to aspiration.
--- NOTE | 2023-03-15 09:46 | XR ---
EXAM: XR chest 1V portable CLINICAL INDICATION:Male, 77 years old with history of Tube placement; [facility] COMPARISON: 03/14/2023 and before TECHNIQUE: Chest single view. FINDINGS: Lungs/Pleura: There is no evidence of pleural effusion, focal consolidation, or pneumothorax. Pulmonary vascularity: Unremarkable. Heart/mediastinum: Cardiomediastinal silhouette is stable. Normal heart size. Mildly tortuous aorta. Musculoskeletal: Degenerative changes of the shoulders and spine. Other findings: None Lines/Tubes: Endotracheal tube with distal tip 4.2 cm above the trell. Nasogastric tube with its distal tip and side-port projecting under the diaphragm. Left subclavian central venous catheter with distal tip at the cavoatrial junction. IMPRESSION: 1. Lines and tubes remain in satisfactory position. 2. No acute cardiopulmonary abnormality.
[2023-03-15] MEDS: AMIODARONE 450 MG in DEXTROSE 5% IN WATER 250 ML IV SCH ×2 (11:58)
--- NOTE | 2023-03-15 12:00 | P.PN ---
Subjective Progress Note Date: 03/14/23 03/14/2023: Patient was seen for a follow-up. Patient apparently turn for the worse. Patient's NG tube partially came out, and he was getting feeds through the NG tube. Patient aspirated. Patient was placed on facemask, and patient vomited and further aspirated. Patient was intubated, and transferred to ICU. Patient started again on Zosyn. Patient is critically sick. Patient is curr ently on Levophed 0.25 micrograms per kilogram per minute (86.25 mL per hour), propofol 45 mcg/kg per minute, IV fluids. 03/13/2023: Patient was seen for a follow-up. Family members were not present today. Patient is much more alert and awake. He is trying to make some sounds, but unintelligible. His mouth has dried phlegm. Coated tongue and some lips. Patient continues to be severely encephalopathic. 03/12/2023 patient was seen for follow-up. Patient's family members are present. Patient overall remained same. He nods "no" for headache he is sli ghtly more awake since decreasing the dose of Keppra. 03/10/2023: Patient was seen for a follow-up. Patient's family members were present. They mentioned that patient was getting better when the shunt was receiving IV vitamins and been patient received IVIG. They were recommending IV vitamin D, zinc and some other vitamins. I informed that vitamin D excess can produce toxicity. Likewise zinc is typically given orally. Patient clinically not much change. Telemetry monitoring showing sinus rhythm with sinus bradycardia in the 40s, with some PVCs, PACs. Previously had SVT and A. fib. 03/09/2023: Patient was seen for follow-up. Patient's family members are present. Patient over the last 1 week has been followed up by Dr. Jose G Lopez. Please refer to his notes for details. 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 Family members states that patient is not much better. He is talking very minimal. Last week he was trying to talk. However he is not speaking much now. Patient apparently also has received 3 days of IVIG. 03/01/2023: Patient was seen for a follow-up. Patient's older daughter, and patient's 2 sons were present today. Patient's daughter believes that he was much more awake earlier today, with eyes were more widely open. He did not talk, but did new walked was around. Looking at the family more obviously. Patient's family has mentioned that patient does work in the yard, cuts his own grass, and on the Day weekend, the event to watch the grandson's football game. He regularly goes out for a walk with his . He may have been exposed to mosquitoes. Patient was fine until Thursday when he stopped talking and presented to the ER. Objective - Vital Signs Vital signs: Vital Signs Temp 98.4 F 03/14/23 08:00 Pulse 78 03/14/23 11:00 Resp 28 H 03/14/23 11:00 BP 121/74 03/14/23 11:00 Pulse Ox 97 03/14/23 11:00 FiO2 50 03/14/23 08:00 Intake & Output 03/13/23 03/14/23 03/14/23 18:59 06:59 18:59 Intake Total 662 518.901 3210.758 Output Total 700 315 160 Balance -38 273.652 4023.758 Weight 93.1 kg Intake: IV 590 1850 Piperacillin-Tazobactam 3 100 .375 gm In Sodium Chloride 0.9% 100 ml @ 25 mls/hr IVPB Q8HR [facility] Rx# :[id number] Sodium Chloride 0.9% 1, 450 750 000 ml @ 150 mls/hr IV . Q6H40M [facility] Rx#:[id number] Sodium Chloride 0.9% 1, 140 000 ml @ 20 mls/hr IV . Q24H [facility] Rx#:[id number] Sodium Chloride 0.9% 1, 1000 000 ml @ 999 mls/hr IV . Q1H1M [facility] Rx#:[id number] Intake, IV Titration 116.262 200.758 Amount Norepinephrine 4 mg In 113.042 140.958 Sodium Chloride 0.9% 250 ml @ 0.03 MCG/KG/MIN 10. 516 mls/hr IV .Q24H [facility] Rx#:[id number] propofoL 1,000 mg In 3.22 59.8 Empty Bag 1 bag @ 15 MCG/ KG/MIN 8.28 mls/hr IV . Q12H5M [facility] Rx#:[id number] Tube Feeding 662 Other 60 Output: Urine 700 315 160 Other: Voiding Method External Catheter Indwelling Catheter Indwelling Catheter # Voids 1 ABP, PAP, CO, CI - Last Documented Arterial Blood Pressure 111/54 - Exam Patient is much more alert and awake today. He is smiling. His affect is slightly abnormal. No obvious seizure-like activity noted. Patient continues to be obviously encephalopathic. Patient does have NG tube for feeding. Pu pils are equal, round and reacting. Visual myers could not be tested. Face is symmetric. Patient did not cooperate with muscle strength testing. Director Of Estate is equal bilaterally. Patient is very tender to moving his upper arms at the shoulders. - Labs CBC & Chem 7: 03/15/23 04:55 03/15/23 04:55 Labs: Abnormal Lab Results - Last 24 Hours (Table) 03/13/23 03/13/23 03/13/23 Range/Units 12:09 18:34 23:48 WBC (3.8-10.6) k/uL RBC (4.30-5.90) m/uL Hgb (13.0-17.5) gm/dL Hct (39.0-53.0) % ABG pH (7.35-7.45) ABG pCO2 (35-45) mmHg ABG pO2 (83-108) mmHg ABG Total CO2 (19-24) mmol/L ABG O2 Saturation (94-97) % Carbon Dioxide (22-30) mmol/L BUN (9-20) mg/dL Glucose (74-99) mg/dL POC Glucose (mg/dL) 129 H 122 H 135 H (70-110) mg/dL Calcium (8.4-10.2) mg/dL Total Bilirubin (0.2-1.3) mg/dL AST (17-59) U/L ALT (4-49) U/L Albumin (3.5-5.0) g/dL 03/13/23 03/14/23 03/14/23 Range/Units 23:55 01:58 03:20 WBC (3.8-10.6) k/uL RBC (4.30-5.90) m/uL Hgb (13.0-17.5) gm/dL Hct (39.0-53.0) % ABG pH 7.49 H 7.48 H (7.35-7.45) ABG pCO2 32 L 30 L (35-45) mmHg ABG pO2 122 H >400 H (83-108) mmHg ABG Total CO2 25 H (19-24) mmol/L ABG O2 Saturation 98.4 H 100.0 H (94-97) % Carbon Dioxide (22-30) mmol/L BUN (9-20) mg/dL Glucose (74-99) mg/dL POC Glucose (mg/dL) 111 H (70-110) mg/dL Calcium (8.4-10.2) mg/dL Total Bilirubin (0.2-1.3) mg/dL AST (17-59) U/L ALT (4-49) U/L Albumin (3.5-5.0) g/dL 03/14/23 03/14/23 03/14/23 Range/Units 05:30 05:45 06:00 WBC 36.4 H (3.8-10.6) k/uL RBC 3.50 L (4.30-5.90) m/uL Hgb 11.8 L (13.0-17.5) gm/dL Hct 34.8 L (39.0-53.0) % ABG pH (7.35-7.45) ABG pCO2 (35-45) mmHg ABG pO2 (83-108) mmHg ABG Total CO2 (19-24) mmol/L ABG O2 Saturation (94-97) % Carbon Dioxide 20 L (22-30) mmol/L BUN 46 H (9-20) mg/dL Glucose 128 H (74-99) mg/dL POC Glucose (mg/dL) 155 H (70-110) mg/dL Calcium 8.3 L (8.4-10.2) mg/dL Total Bilirubin 3.4 H (0.2-1.3) mg/dL AST 73 H (17-59) U/L ALT 88 H (4-49) U/L Albumin 2.9 L (3.5-5.0) g/dL 03/14/23 Range/Units 10:41 WBC (3.8-10.6) k/uL RBC (4.30-5.90) m/uL Hgb (13.0-17.5) gm/dL Hct (39.0-53.0) % ABG pH (7.35-7.45) ABG pCO2 (35-45) mmHg ABG pO2 (83-108) mmHg ABG Total CO2 (19-24) mmol/L ABG O2 Saturation (94-97) % Carbon Dioxide (22-30) mmol/L BUN (9-20) mg/dL Glucose (74-99) mg/dL POC Glucose (mg/dL) 143 H (70-110) mg/dL Calcium (8.4-10.2) mg/dL Total Bilirubin (0.2-1.3) mg/dL AST (17-59) U/L ALT (4-49) U/L Albumin (3.5-5.0) g/dL Microbiology - Last 24 Hours (Table) 03/10/23 10:10 Blood Culture - Preliminary Blood Assessment and Plan Assessment: * 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 * New onset aspiration pneumonia, respiratory distress, now on mechanical ventilation. * Acute metabolic encephalopathy likely from severe pneumonia and West Nile virus. * SIRS, pneumonia * Acute rhabdomyolysis, resolving, most recent CK 719. * MRI cervical spine showed moderate spinal stenosis at C3-C4 level. * Generalized weakness, multifactorial, due to above conditions. * Elevated cardiac enzymes * New onset atrial fibrillation currently on Eliquis. * History of bilateral shoulder pain/arthritis * History of bilateral knee replacement. Plan: * Patient is now intubated because of aspiration pneumonia. Patient is on Zosyn. * Patient is off Keppra since yesterday.. Patient slightly more aware and alert as compared to yesterday. However he continues to be severely encephalopathic. He is trying to make some sounds, but could not understand. Patient was on Keppra 750 mg twice a day and was started taper down on 03/10/2023. Family in agreement. Patient never had a seizure. His tremors likely related to West Nile virus. He had EEG performed twice, which did not reveal any epileptiform activity. * Patient continues to be severely encephalopathic. Patient to undergo PEG tube placement in the morning. Surgery consulted. Discussed with ID about repeat lumbar puncture, but believes that it will not change the management. There i s only supportive care for West Nile virus. Patient is also on Eliquis for atrial fibrillation. Holding anticoagulation poses risk for strokes. * MRI Brain w/ and w/o: Was reported as no evidence for encephalitis. No evidence of intracranial mass, acute/subacute infarct or abnormal enhancement. Nonspecific white matter changes, likely related to small vessel ischemic disease. * Repeat EEG performed 03/01/2023 was abnormal due to background slowing of moderate degree consistent with encephalopathy. No epileptiform activity was seen. When compared to the initial EEG from 02/24/2023, the background seems to have gotten worse. * Chest x-ray performed today revealed significant improvement in the appearance of interstitial and previous left basilar opacity. There may be underlying COPD. Similar tortuous/ectatic thoracic aorta. No definite acute process. Pulmonary, ID and cardiology on on board. Patient has completed course of IV antibiotics with Zosyn. Patient has been started on Diflucan for oral candidiasis. Patient is now also started on Augmentin. ID following closely. * CSF performed 02/24/2023 was colorless and clear. CSF glucose 52, protein 86 (12-60). WBC count 4, RBCs 358. Comprehensive viral detection negative. 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 For west nile it is usually supportive care. * MRI Cervical spine w/ and w/o: Is reported as mild to moderate multilevel degenerative disc disease with scattered facet and uncovertebral joint. Appendectomy. Degenerative grade 1 anterolisthesis C7 to T1. Moderate focal signal canal stenosis at C3-C4 with abutment and flattening of both the dorsal and ventral cord. Sagittal FLAIR sequence suggest some focal cord edema here. Correlate for myelopathic symptoms. The axial images are essentially nondiagnostic due to patient motion. Unable to adequately assess then neuroforamen. Dr. Lopez has consulted the orthopedic surgery team and they evaluated patient and no surgical intervention. On my review of MRI, there is moderate spinal stenosis at C3 4 level. No significant cord signal changes. * Cardiology on board for new onset atrial fibrillation. Patient currently on Eliquis. * Other management as per IM, critical care team. * Neurology will follow peripherally. * Dr. Jose G Lopez Will resume neurology service from Thursday morning.
[2023-03-15 13:20] LABS: Glucose,Whole Blood 126 mg/dL (70-110)
--- NOTE | 2023-03-15 14:05 | P.PN ---
Subjective Progress Note Date: 03/15/23 Principal diagnosis: Fever Patient is a 77-year-old male presenting to the hospital y after the patient was found to be unresponsive by the , patient has been febrile initial testing negative including LP which was only mildly elevated protein. 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 On today's evaluation that is 03/15/2023, the patient is afebrile this morning, the patient is intubated on the vent on 50% FiO2 , the patient is hemodynamically stable and off the pressor support no other changes reported by the nursing staff patient white count is down to 12.8, creatinine 0.62 Objective - Vital Signs Vital signs: Vital Signs Temp 98.9 F 03/15/23 08:00 Pulse 71 03/15/23 11:00 Resp 28 H 03/15/23 11:00 BP 114/68 03/15/23 01:00 Pulse Ox 99 03/15/23 11:00 FiO2 50 03/15/23 11:00 Intake & Output 03/14/23 03/15/23 03/15/23 18:59 06:59 18:59 Intake Total 3614.758 2990.688 880.208 Output Total 835 625 455 Balance 2779.758 2365.688 425.208 Weight 93.1 kg 100.3 kg Intake: IV 3000 1900 649 Normal Saline Pressure 24 Bag Piperacillin-Tazobactam 3 200 100 100 .375 gm In Sodium Chloride 0.9% 100 ml @ 25 mls/hr IVPB Q8HR [facility] Rx# :[id number] Sodium Chloride 0.9% 1, 1800 1800 525 000 ml @ 75 mls/hr IV . [id number] [facility] Rx#:[id number] Sodium Chloride 0.9% 1, 1000 000 ml @ 999 mls/hr IV . Q1H1M [facility] Rx#:[id number] Intake, IV Titration 554.758 350.688 71.208 Amount Norepinephrine 4 mg In 394.958 156.158 Sodium Chloride 0.9% 250 ml @ 0.03 MCG/KG/MIN 10. 516 mls/hr IV .Q24H [facility] Rx#:[id number] propofoL 1,000 mg In 159.8 194.53 71.208 Empty Bag 1 bag @ 15 MCG/ KG/MIN 8.28 mls/hr IV . Q12H5M [facility] Rx#:[id number] Tube Feeding 650 130 Other 60 90 30 Output: Urine 835 625 455 Other: Voiding Method Indwelling Catheter Indwelling Catheter ABP, PAP, CO, CI - Last Documented Arterial Blood Pressure 118/47 - Exam GENERAL DESCRIPTION: An elderly male intubated on the vent RESPIRATORY SYSTEM: Unlabored breathing , coarse breath sounds bilaterally HEART: S1 S2 regular rate and rhythm , ABDOMEN: Soft , no tenderness EXTREMITIES: No edema feet - Labs CBC & Chem 7: 03/15/23 04:55 03/15/23 04:55 Labs: Abnormal Lab Results - Last 24 Hours (Table) 03/14/23 03/14/23 03/15/23 Range/Units 06:00 18:43 04:55 WBC 12.8 H (3.8-10.6) k/uL RBC 2.99 L (4.30-5.90) m/uL Hgb 10.4 L (13.0-17.5) gm/dL Hct 29.9 L (39.0-53.0) % ABG pCO2 (35-45) mmHg ABG pO2 (83-108) mmHg ABG HCO3 (21-25) mmol/L ABG O2 Saturation (94-97) % Chloride (98-107) mmol/L Carbon Dioxide (22-30) mmol/L BUN (9-20) mg/dL Creatinine (0.66-1.25) mg/dL Glucose (74-99) mg/dL POC Glucose (mg/dL) 171 H (70-110) mg/dL Calcium (8.4-10.2) mg/dL Procalcitonin 4.25 H (0.02-0.09) ng/mL 03/15/23 03/15/23 03/15/23 Range/Units 04:55 06:03 06:24 WBC (3.8-10.6) k/uL RBC (4.30-5.90) m/uL Hgb (13.0-17.5) gm/dL Hct (39.0-53.0) % ABG pCO2 30 L (35-45) mmHg ABG pO2 174 H (83-108) mmHg ABG HCO3 20 L (21-25) mmol/L ABG O2 Saturation 99.3 H (94-97) % Chloride 112 H (98-107) mmol/L Carbon Dioxide 19 L (22-30) mmol/L BUN 29 H (9-20) mg/dL Creatinine 0.62 L (0.66-1.25) mg/dL Glucose 141 H (74-99) mg/dL POC Glucose (mg/dL) 158 H (70-110) mg/dL Calcium 7.8 L (8.4-10.2) mg/dL Procalcitonin (0.02-0.09) ng/mL Microbiology - Last 24 Hours (Table) 03/14/23 05:12 Gram Stain - Preliminary Sputum Assessment and Plan (1) Fever Current Visit: Yes Status: Acute Code(s): R50.9 - FEVER, UNSPECIFIED SNOMED Code(s): 366730276 (2) Pneumonia Current Visit: Yes Status: Acute Code(s): J18.9 - PNEUMONIA, UNSPECIFIED ORGANISM SNOMED Code(s): 878143571 (3) West Nile Virus infection Current Visit: Yes Status: Acute Code(s): A92.30 - WEST NILE VIRUS INFECTION, UNSPECIFIED SNOMED Code(s): 603993758 Plan: 1patient with encephalitis/meningitis ,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, the treatment is mostly supportive, there is some role for immunoglobulin infusion which the patient has already received 2-episode of vomiting aspiration and acute respiratory failure requiring intubation--, patient with likely aspiration pneumonia, blood and sputum culture currently pending patient white count is trending downward continue with the Randy Multiple family member at the bedside questions were answered Dictation was produced using Signal[employer] dictation software. please excuse any grammatical, word or spelling errors. Time with Patient: Less than 30
[2023-03-15] MEDS: METOPROLOL TARTRATE 50 MG TAB PO SCH (15:16)
[2023-03-15 18:10] LABS: Glucose,Whole Blood 119 mg/dL (70-110)
[2023-03-15] MEDS: AMIODARONE 200 MG TAB PO SCH (21:43)
--- NOTE | 2023-03-15 22:59 | PN ---
PROGRESS NOTE DATE OF SERVICE: 03/15/2023 SUBJECTIVE: This 77-year-old gentleman was originally admitted with possible West Nile virus encephalitis, also had period of aspiration, the patient with acute respiratory failure, patient was mechanically ventilated. The patient also had atrial fibrillation, amiodarone IV drip is being continued. Surgery is planning EGD with PEG tube placement on Thursday. PAST MEDICAL HISTORY: Reviewed. REVIEW OF SYSTEMS: Could not be taken. MEDICATIONS: Cordarone and rest of medications reviewed, doses are reviewed. OBJECTIVE: GENERAL: The patient is mechanically sedated. VITAL SIGNS: Pulse is 75, blood pressure 114/60, respirations 28. The vent settings are noted. HEENT: Conjunctivae normal. CARDIOVASCULAR: S1, S2. RESPIRATIONS: A few scattered rhonchi. ABDOMEN: Soft. NERVOUS SYSTEM: Sedated. LABORATORY DATA: Reviewed. ABG reviewed. Chest x-ray reviewed personally. ASSESSMENT: 1. Acute aspiration pneumonia bilateral with acute hypoxic respiratory failure, on mechanical ventilation. 2. 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 3. Acute rhabdomyolysis. 4. For PEG tube placement tomorrow. 5. Elevated AST, ALT. 6. Elevated WBC. 7. Anemia. 8. Full code. RECOMMENDATIONS: Recommended to continue current management, continue symptomatic treatment, otherwise I would recommend continue to monitor, otherwise procalcitonin is elevated. The patient is on IV Zosyn. Infectious Disease is following the patient closely. Recommend repeat labs in the morning and closely monitor. Continue with mechanical ventilation and possible EGD, surgery, Dr. Holman will follow tomorrow. MMODL / IJN: [id number] / [facility]
[2023-03-15] MEDS: IPRATROPIUM-ALBUTEROL 3 ML NEB INHALATION PRN (23:50)
[2023-03-16] MEDS: PIPERACILLIN-TAZOBACTAM 3.375 GM in SODIUM CHLORIDE 0.9% 100 ML IVPB SCH ×4 (00:35→17:39)
[2023-03-16 02:11] LABS: Glucose,Whole Blood 110 mg/dL (70-110)
[2023-03-16] MEDS: IPRATROPIUM-ALBUTEROL 3 ML NEB INHALATION PRN ×2 (03:39→23:43)
[2023-03-16 05:54] LABS: ALT 47 U/L (4-49); AST 32 U/L (17-59); African American GFR (CKD) >90 (>60 ml/min/1.73 sqM); Albumin 2.3 g/dL (3.5-5.0); Alkaline Phosphatase 54 U/L (38-126); Anion Gap 4 mmol/L; Blood Urea Nitrogen 19 mg/dL (9-20); Calcium 7.7 mg/dL (8.4-10.2); Carbon Dioxide 22 mmol/L (22-30); Chloride 111 mmol/L (98-107); Glucose 111 mg/dL (74-99); Non-African American GFR(CKD) >90 (>60 ml/min/1.73 sqM); Potassium 3.9 mmol/L (3.5-5.1); Sodium 137 mmol/L (137-145); Total Bilirubin 0.7 mg/dL (0.2-1.3); Total Protein 5.5 g/dL (6.3-8.2)
[2023-03-16 05:55] LABS: Basophils % (A) 0 %; Eosinophils # (A) 0.2 k/uL (0-0.7); Eosinophils % (A) 2 %; HCT 29.6 % (39.0-53.0); HGB 9.9 gm/dL (13.0-17.5); Lymphocytes # (A) 1.1 k/uL (1.0-4.8); Lymphocytes % (A) 13 %; MCH 34.1 pg (25.0-35.0); MCHC 33.6 g/dL (31.0-37.0); MCV 101.7 fL (80.0-100.0); Macrocytosis Slight; Mean Platelet Volume 8.4; Monocytes # (A) 0.5 k/uL (0-1.0); Monocytes % (A) 6 %; Neutrophils # (A) 6.2 k/uL (1.3-7.7); Neutrophils % (A) 77 %; Platelet Count 177 k/uL (150-450); RDW 13.9 % (11.5-15.5); WBC 8.1 k/uL (3.8-10.6)
[2023-03-16 06:04] LABS: ABG Base Excess -1.9 mmol/L; ABG HCO3 22 mmol/L (21-25); ABG Oxygen Saturation 99.6 % (94-97); ABG PCO2 33 mmHg (35-45); ABG PH 7.44 (7.35-7.45); ABG PO2 167 mmHg (83-108); ABG TCO2 23 mmol/L (19-24); Allen Test Performed? Yes
[2023-03-16] MEDS ORDERED: POTASSIUM BICARBONATE/CIT AC 20 MEQ TABLET.EFF NG-TUBE SCH (07:00)
--- NOTE | 2023-03-16 07:27 | XR ---
EXAMINATION TYPE: XR chest 1V portable DATE OF EXAM: 03/16/2023 5:28 AM CLINICAL INDICATION:Male, 77 years old with history of Tube placement; [facility] COMPARISON: Chest radiograph from one day prior. TECHNIQUE: XR chest 1V portable Frontal view of the chest. FINDINGS: Lungs/Pleura: There is no evidence of pleural effusion, focal consolidation, or pneumothorax. Pulmonary vascularity: Unremarkable. Heart/mediastinum: Cardiomediastinal silhouette is unremarkable. Musculoskeletal: No acute osseous pathology. Other findings: None Lines/Tubes: Endotracheal tube with distal tip 3.2 cm above the trell. Nasogastric tube with its distal tip and side-port projecting under the diaphragm and projecting over the gastric lumen. Left central venous catheter with distal tip at the cavoatrial junction. IMPRESSION: Stable support linea and tubes fill significant change from prior.
[2023-03-16] MEDS: SODIUM CHLORIDE 0.9% 1,000 ML IV SCH ×2 (08:17→21:05)
--- NOTE | 2023-03-16 08:25 | P.PN ---
Subjective Progress Note Date: 03/16/23 Principal diagnosis: Altered mental status This is a 77-year-old male who presented to the ER with concerns of altered mental status. His had found him on the ground prior to coming to the ER. He was placed in ICU, has had tachycardia with hypotension. He also continues t o have intermittent fevers. Workup for bacterial meningitis was negative. EEG was negative for seizure activity. Further workup still in progress. Patient still has a white count today. He is seen laying in bed in the ICU this morning, in no acute distress. 03/02/2023 Patient is seen and evaluated sitting up in bed in ICU. Over the weekend patient developed atrial fibrillation with RVR. He remains on a heparin drip. Patient also began to be more alert over the weekend, responds to verbal commands, does have garbled speech. Neurology has ordered an MRI of the brain. 03/05/2023 Patient is seen and evaluated laying in bed in ICU. He continues to be not very arousable, not alert today. Speech remains garbled. Labs have come back showing West Nile virus, infectious disease already consulted, await their recommendations. 03/09/2023 Patient is seen and evaluated on step-down unit. He did receive 3 doses of IVIG. NG tube and feeding still in place. Speech still garbled, he is arousable though and able to follow simple commands 03/10/2023 Patient is seen and evaluated on step-down unit. White count elevated today, no fever. Chest XR pending. Patient looks more restless in the bed today. 03/12/2023 Patient seen and evaluated laying in bed this morning. He is more alert today, speech is still garbled. His white count is trending down. 03/16/2023 Patient aspirated over the weekend and ended up back in ICU. He remains on mechanical ventilation. Plan is for peg-tube today. Objective - Vital Signs Vital signs: Vital Signs Temp 98.7 F 03/16/23 04:00 Pulse 78 03/16/23 06:00 Resp 28 H 03/16/23 06:00 BP 114/68 03/15/23 01:00 Pulse Ox 100 03/16/23 06:00 FiO2 50 03/16/23 05:00 Intake & Output 03/15/23 03/16/23 03/16/23 18:59 06:59 18:59 Intake Total 2523.527 1640.72 Output Total 970 880 Balance 1553.527 760.72 Weight 99.6 kg Intake: IV 1316 1072 Normal Saline Pressure 66 72 Bag Piperacillin-Tazobactam 3 200 100 .375 gm In Sodium Chloride 0.9% 100 ml @ 25 mls/hr IVPB Q8HR [facility] Rx# :[id number] Sodium Chloride 0.9% 1, 1050 900 000 ml @ 75 mls/hr IV . [id number] [facility] Rx#:[id number] Intake, IV Titration 532.527 183.72 Amount Amiodarone 450 mg In 306.395 Dextrose 5% in Water 250 ml @ 0.5 MG/MIN 16.667 mls/hr IV .Q15H [facility] Rx#: [id number] propofoL 1,000 mg In 226.132 183.72 Empty Bag 1 bag @ 15 MCG/ KG/MIN 8.28 mls/hr IV . Q12H5M [facility] Rx#:[id number] Tube Feeding 585 325 Other 90 60 Output: Urine 970 880 Other: Voiding Method Indwelling Catheter Indwelling Catheter ABP, PAP, CO, CI - Last Documented Arterial Blood Pressure 133/49 - Constitutional General appearance: Present: no acute distress - Neck Neck: Present: normal ROM. Absent: lymphadenopathy, rigidity - Respiratory Respiratory: bilateral: diminished - Cardiovascular Rhythm: regular Heart sounds: normal: S1, S2 - Gastrointestinal General gastrointestinal: Present: soft. Absent: tenderness - Integumentary Integumentary: Present: normal, normal turgor - Musculoskeletal Musculoskeletal: Present: generalized weakness - Labs CBC & Chem 7: 03/16/23 04:40 03/16/23 04:40 Labs: Abnormal Lab Results - Last 24 Hours (Table) 03/15/23 03/15/23 03/16/23 Range/Units 13:18 18:08 04:40 RBC 2.90 L (4.30-5.90) m/uL Hgb 9.9 L (13.0-17.5) gm/dL Hct 29.6 L (39.0-53.0) % MCV 101.7 H (80.0-100.0) fL ABG pCO2 (35-45) mmHg ABG pO2 (83-108) mmHg ABG O2 Saturation (94-97) % Chloride (98-107) mmol/L Creatinine (0.66-1.25) mg/dL Glucose (74-99) mg/dL POC Glucose (mg/dL) 126 H 119 H (70-110) mg/dL Calcium (8.4-10.2) mg/dL Total Protein (6.3-8.2) g/dL Albumin (3.5-5.0) g/dL 03/16/23 03/16/23 Range/Units 04:40 06:00 RBC (4.30-5.90) m/uL Hgb (13.0-17.5) gm/dL Hct (39.0-53.0) % MCV (80.0-100.0) fL ABG pCO2 33 L (35-45) mmHg ABG pO2 167 H (83-108) mmHg ABG O2 Saturation 99.6 H (94-97) % Chloride 111 H (98-107) mmol/L Creatinine 0.59 L (0.66-1.25) mg/dL Glucose 111 H (74-99) mg/dL POC Glucose (mg/dL) (70-110) mg/dL Calcium 7.7 L (8.4-10.2) mg/dL Total Protein 5.5 L (6.3-8.2) g/dL Albumin 2.3 L (3.5-5.0) g/dL Microbiology - Last 24 Hours (Table) 03/14/23 10:45 Blood Culture - Preliminary Blood 03/10/23 10:10 Blood Culture - Final Blood Assessment and Plan (1) Altered mental status Current Visit: Yes Status: Acute Code(s): R41.82 - ALTERED MENTAL STATUS, UNSPECIFIED SNOMED Code(s): 748328551 (2) Pneumonia Current Visit: Yes Status: Acute Code(s): J18.9 - PNEUMONIA, UNSPECIFIED ORGANISM SNOMED Code(s): 031039229 (3) Septic shock Current Visit: Yes Status: Acute Code(s): A41.9 - SEPSIS, UNSPECIFIED ORGANISM; R65.21 - SEVERE SEPSIS WITH SEPTIC SHOCK SNOMED Code(s): 08817040 (4) Atrial fibrillation Current Visit: Yes Status: Acute Code(s): I48.91 - UNSPECIFIED ATRIAL FIBRILLATION SNOMED Code(s): 97402832 (5) West Nile Virus infection Current Visit: Yes Status: Acute Code(s): A92.30 - WEST NILE VIRUS INFECTION, UNSPECIFIED SNOMED Code(s): 772119945 Plan: CBC and CMP in the morning. Patient seen and evaluated by nurse practitioner, physician in agreement with plan
[2023-03-16] MEDS: IPRATROPIUM-ALBUTEROL 3 ML NEB INHALATION SCH ×3 (08:36→19:26)
[2023-03-16] MEDS: CHLORHEXIDINE GLUCONATE 15 ML CUP MUCOUS MEM SCH ×2 (09:02→21:05)
[2023-03-16] MEDS: PANTOPRAZOLE 40 MG/10 ML VIAL IVP SCH (09:02)
[2023-03-16] MEDS: AMIODARONE 200 MG TAB PO SCH ×2 (09:03→20:38)
[2023-03-16] MEDS ORDERED: HYDROmorphone 0.5 MG/0.5 ML SYRINGE IVP STA (09:44)
--- NOTE | 2023-03-16 13:18 | P.PN ---
Subjective Progress Note Date: 03/16/23 Principal diagnosis: Sepsis and mental status change, West Nile virus encephalitis, aspiration pneumonia I am seeing this patient in new consultation today 02/24/2023 after the patient presented to the ER yesterday evening with concerns of altered mental status. Patient is a 77-year-old white male with a limited past medical history. Apparently, the patient's found him down on the ground early yesterday morning confused. His last known well time was the night prior. Nonenhanced brain CT on arrival shows age-related atrophic and chronic small vessel ischemia without any obvious acute cranial process. Initial chest x-ray on arrival showed fullness around the right hilum likely related patient rotation. Underlying infiltrate or mass not excluded. CBC shows leukocytosis with a WBC count of 16, hemoglobin 13.5, hematocrit 39.1, platelets 109,000. BMP shows sod ium 136, potassium 3.7, chloride 110, serum bicarb 17, BUN 36, creatinine 1.22, glucose 102. LFTs are mildly elevated. Troponins are 1.66 and 1.9. Urinalysis not particularly concerning for UTI. Negative for influenza, RSV, COVID-19. Patient was originally admitted to the floor, and was transferred to the ICU last night for tachycardia and hypotension. Yesterday, he was given a total of 2.5 L normal saline bolus. On my evaluation, the patient is lying in bed, extremities are rigid, he is febrile with a t-max of 103 F. He is on 2 L/m nasal cannula, oxygenating around 94%. He is disoriented and unable to provide any meaningful information. He mostly mumbles. I did speak to the patient's daughter, who denies any recent sinus, ear, or pulmonary infections. I am concerned for possible encephalitis or meningitis. I spoke with neurology last night, and updated them on the patient. There is an EEG pending for the morning. Patient is empirically covered with combination of ampicillin, vancomycin, and Rocephin. Infectious disease consult was also placed. Heart rhythm is currently normal sinus on bedside monitor. Blood pressure is normotensive. Normal saline is infusing at 130 ML's per hour. No need for vasopressors at this time. Patient will need a thorough neurological workup. He is being monitored in the intensive care unit in the meantime. On 03/13/2023, no change in neurologic functions and the patient remains in the same neurologic status. He continues to receive enteral feeding for nutritional support via an NG tube. The patient will need a PEG tube and this has been tentatively scheduled to be done on 03/16/2023. Anticoagulation will placed on hold for now. No other complaints. No signs of any respiratory distress. The blood work shows a BUN of 36 with a creatinine of 0.7. The white cell count 15.4 with a hemoglobin of 13 and a platelet count of 218. Blood sugars at 219. The patient will be having a PEG tube insertion for enteral feeding and nu tritional support. 03/14/2023, the patient is being seen for a follow-up in the intensive care unit . Events from overnight was noted. The patient had massive aspiration. Apparently the NG tube got misplaced and the patient was having enteral feeding into his lungs. He became acutely short of breath, he went into respiratory distress. He was placed on 100% nonrebreather facemask. He was tried on a BiPAP which she failed and ultimately had to be intubated and placed on a mechanical ventilator. Post intubation, the patient became quite hypotensive. He received a total of 2.5 L of IV fluid and currently he is on normal saline running at the rate of 150 mL an hour. He is sedated with propofol at 25 mcg/kg/m. He is on a mechanical ventilator assist control mode with a rate of 28, tidal volume of 500, FiO2 of 50% with a PEEP of 5. An arterial line was inserted. He will also need a central line. 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 His chest x-ray immediately post aspiration showed some new infiltrates in his right upper lobe. NG tube has been removed. The patient has a orogastric tube in place for now. The patient is currently on IV Zosyn. The chest x-ray reveals new bilateral pulmonary infiltrates more so in the upper lobes. Lung bases are at this period. Orogastric tube is in the stomach. The white cell count is at 36.4, with a hemoglobin of 11.8 and a platelet count of 278. BUN is 46 with a creatinine of 1.08 and sodium levels of 137. Glucose at 128. Urine output is in order of 20 mL an hour. He is currently afebrile. 03/14/2023, the patient is being seen for a follow-up. Remains intubated on a mechanical ventilator. Earlier this morning, he was taken off the pressors and he is currently hemodynamically stable. At the same time, he had an issue with a SVT yesterday. He was given amiodarone and he was bolused and currently is on a maintenance of 0.5 mg/m. His cardiac rhythm is back into sinus rhythm. He remains on propofol which is running at 30 mcg/kg/m. He remains on a mechanical ventilator, assist control mode at the rate of 28, tidal volume of 500, FiO2 of 50% with a PEEP of 5. Blood gas shows improvement in oxygenation with a pH of 7.44 and a pO2 of 174 and a pCO2 of 30. White cell count is down to 12.8. Hemoglobin is at 10.4 and a platelet count is at 199. BUN is at 29 with a creatinine of 0.6 and the sodium levels is 137. Chest x-ray from yesterday shows limited bibasilar and right sided infiltrate. Orotracheal tube is in a good location. He has a left-sided triple-lumen catheter in place. Adequate urine output. Response to painful stimulation. His encephalopathic due to his underlying West Nile virus encephalitis. Pro-calcitonin level was at 4.25 indicating sepsis. The patient was aggressively resuscitated with IV fluids. IV fluids are currently running with normal saline at rate of 150 mL an hour. As mentioned, he is off pressors. Patient was seen and examined today on 03/16/2023, patient remains in the ICU, intubated and mechanically he is on assist control rate of 28 tidal volume 500 FiO2 of 50% and PEEP is 5. ABG showed a pO2 of 167 pCO2 of 33 pH of 7.44. Ches t x-ray continues to show evidence of minimal bibasilar infiltrates, right more so than left. His vent settings were changed I cut him down to a rate of 22 and I cut down the FiO2 to 40% instead of 50%, patient remains on propofol at 40 mcg/kg/m of the fluid 0.9 normal saline at 75 mL/h he remains nothing by mouth, nasogastric tube is in place, urine output seems to be excellent. Patient remains on Zosyn for presumptive aspiration pneumonia. Patient is scheduled to have a PEG tube placed today. Obviously the patient is not quite ready for weaning and extubation, however I do plan to consider start weaning trials in the next 24 hours. WBC count is 8.1 hemoglobin is 9.9 electrolytes are normal renal profile is normal Objective - Vital Signs Vital signs: Vital Signs Temp 98.2 F 03/16/23 08:00 Pulse 68 03/16/23 12:12 Resp 22 03/16/23 12:12 BP 115/65 03/16/23 10:00 Pulse Ox 98 03/16/23 10:00 FiO2 40 03/16/23 11:51 Intake & Output 03/15/23 03/16/23 03/16/23 18:59 06:59 18:59 Intake Total 2523.527 1640.72 604.210 Output Total 970 880 975 Balance 1553.527 760.72 -370.790 Weight 99.6 kg Intake: IV 1316 1072 496 Normal Saline Pressure 66 72 21 Bag Piperacillin-Tazobactam 3 200 100 100 .375 gm In Sodium Chloride 0.9% 100 ml @ 25 mls/hr IVPB Q8HR [facility] Rx# :[id number] Sodium Chloride 0.9% 1, 1050 900 375 000 ml @ 75 mls/hr IV . [id number] [facility] Rx#:[id number] Intake, IV Titration 532.527 183.72 98.210 Amount Amiodarone 450 mg In 306.395 Dextrose 5% in Water 250 ml @ 0.5 MG/MIN 16.667 mls/hr IV .Q15H [facility] Rx#: [id number] propofoL 1,000 mg In 226.132 183.72 98.210 Empty Bag 1 bag @ 15 MCG/ KG/MIN 8.28 mls/hr IV . Q12H5M [facility] Rx#:[id number] Oral 10 Tube Feeding 585 325 Other 90 60 Output: Urine 970 880 975 Other: Voiding Method Indwelling Catheter Indwelling Catheter Indwelling Catheter ABP, PAP, CO, CI - Last Documented Arterial Blood Pressure 121/50 - Exam GENERAL EXAM: Revealed a 77-year-old white male intubated sedated and mechanically ventilated, on propofol. HEAD: Normocephalic and atraumatic endotracheal tube and orogastric tube are intact. EYES: Normal reaction of pupils, equal size. NOSE: Clear with pink turbinates. THROAT: No erythema or exudates. NECK: No masses, no JVD. CHEST: No chest wall deformity. LUNGS: Minimal crackles at the bases. CVS: S1 and S2 normal with no audible murmur, regular rhythm. No extra heart sounds ABDOMEN: Obese soft nontender no megaly no rebound no guarding SKIN: No rashes CENTRAL NERVOUS SYSTEM: Unable to assess today mostly because the patient is sedated, on propofol per EXTREMITIES: There is no peripheral edema, clubbing, or cyanosis. Peripheral pulses are intact. - Labs CBC & Chem 7: 03/16/23 04:40 03/16/23 04:40 Labs: Abnormal Lab Results - Last 24 Hours (Table) 03/15/23 03/15/23 03/16/23 Range/Units 13:18 18:08 04:40 RBC 2.90 L (4.30-5.90) m/uL Hgb 9.9 L (13.0-17.5) gm/dL Hct 29.6 L (39.0-53.0) % MCV 101.7 H (80.0-100.0) fL ABG pCO2 (35-45) mmHg ABG pO2 (83-108) mmHg ABG O2 Saturation (94-97) % Chloride (98-107) mmol/L Creatinine (0.66-1.25) mg/dL Glucose (74-99) mg/dL POC Glucose (mg/dL) 126 H 119 H (70-110) mg/dL Calcium (8.4-10.2) mg/dL Total Protein (6.3-8.2) g/dL Albumin (3.5-5.0) g/dL 03/16/23 03/16/23 Range/Units 04:40 06:00 RBC (4.30-5.90) m/uL Hgb (13.0-17.5) gm/dL Hct (39.0-53.0) % MCV (80.0-100.0) fL ABG pCO2 33 L (35-45) mmHg ABG pO2 167 H (83-108) mmHg ABG O2 Saturation 99.6 H (94-97) % Chloride 111 H (98-107) mmol/L Creatinine 0.59 L (0.66-1.25) mg/dL Glucose 111 H (74-99) mg/dL POC Glucose (mg/dL) (70-110) mg/dL Calcium 7.7 L (8.4-10.2) mg/dL Total Protein 5.5 L (6.3-8.2) g/dL Albumin 2.3 L (3.5-5.0) g/dL Microbiology - Last 24 Hours (Table) 03/14/23 05:12 Gram Stain - Final Sputum Sputum Culture - Final 03/14/23 10:45 Blood Culture - Preliminary Blood 03/10/23 10:10 Blood Culture - Final Blood Assessment and Plan Assessment: Impression: Acute hypoxic respiratory failure mostly secondary to aspiration pneumonia Acute aspiration pneumonia Acute West Nile virus encephalitis with mental status change on presentation Altered mental status, secondary to above Acute febrile illness and sepsis Leukocytosis, resolved, possible aspiration pneumonia. Acute rhabdomyolysis, resolved. Elevated LFTs, viral studies are pending, ultrasound showed hepatomegaly Elevated troponins, possibly related to supply/demand mismatch Episodic episodes of atrial fibrillation/SVT, on amiodarone. Elevated liver enzymes with ultrasound showing hepatomegaly Recommendation: Continue ventilatory support Continue nutritional support however feeding is presently on hold mostly because the patient is scheduled to have PEG tube placement Continue antibiotics/Zosyn Patient is not requiring any pressors at this point. Continue GI and DVT prophylaxis. Proceed with PEG tube placement today. Continue amiodarone orally or via nasogastric tube Continue to hold eliquis for now. Close monitoring of the neurological status Patient remains critically ill. Not quite ready for weaning and extubation at this point. we will continue to follow. Critical care time is over 30 Time with Patient: Greater than 30
--- NOTE | 2023-03-16 13:37 | P.PN ---
Subjective Progress Note Date: 03/16/23 CHIEF COMPLAINT: Altered mental status HISTORY OF PRESENT ILLNESS: Patient diagnosed with West Nile virus encephalitis with sepsis and pneumonia. Patient has failed a swallowing eval's. Patient scheduled for PEG tube placement today. Currently in the ICU on mechanical ventilation. Afebrile. WBC 8.1 HGB 9.9 PHYSICAL EXAM: VITAL SIGNS: Reviewed. GENERAL: no acute distress. ABDOMEN: Soft. Nondistended. Nontender. NEUROLOGIC: Intubated ASSESSMENT: 1. Dysphagia 2. Mild protein calorie malnutrition 3. Failed swallow eval 4. West Nile virus encephalitis PLAN: -Patient scheduled for EGD with PEG tube placement today with Dr. Whipple Physician [employer] note has been reviewed by physician. Signing provider agrees with the documented findings, assessment, and plan of care. Objective - Vital Signs Vital signs: Vital Signs Temp 98.2 F 03/16/23 08:00 Pulse 67 03/16/23 11:57 Resp 22 03/16/23 11:57 BP 115/65 03/16/23 10:00 Pulse Ox 98 03/16/23 10:00 FiO2 40 03/16/23 11:51 Intake & Output 03/15/23 03/16/23 03/16/23 18:59 06:59 18:59 Intake Total 2523.527 1640.72 604.210 Output Total 970 880 975 Balance 1553.527 760.72 -370.790 Weight 99.6 kg Intake: IV 1316 1072 496 Normal Saline Pressure 66 72 21 Bag Piperacillin-Tazobactam 3 200 100 100 .375 gm In Sodium Chloride 0.9% 100 ml @ 25 mls/hr IVPB Q8HR [facility] Rx# :[id number] Sodium Chloride 0.9% 1, 1050 900 375 000 ml @ 75 mls/hr IV . [id number] [facility] Rx#:[id number] Intake, IV Titration 532.527 183.72 98.210 Amount Amiodarone 450 mg In 306.395 Dextrose 5% in Water 250 ml @ 0.5 MG/MIN 16.667 mls/hr IV .Q15H [facility] Rx#: [id number] propofoL 1,000 mg In 226.132 183.72 98.210 Empty Bag 1 bag @ 15 MCG/ KG/MIN 8.28 mls/hr IV . Q12H5M [facility] Rx#:[id number] Oral 10 Tube Feeding 585 325 Other 90 60 Output: Urine 970 880 975 Other: Voiding Method Indwelling Catheter Indwelling Catheter Indwelling Catheter ABP, PAP, CO, CI - Last Documented Arterial Blood Pressure 121/50 - Labs CBC & Chem 7: 03/16/23 04:40 03/16/23 04:40 Labs: Abnormal Lab Results - Last 24 Hours (Table) 03/15/23 03/15/23 03/16/23 Range/Units 13:18 18:08 04:40 RBC 2.90 L (4.30-5.90) m/uL Hgb 9.9 L (13.0-17.5) gm/dL Hct 29.6 L (39.0-53.0) % MCV 101.7 H (80.0-100.0) fL ABG pCO2 (35-45) mmHg ABG pO2 (83-108) mmHg ABG O2 Saturation (94-97) % Chloride (98-107) mmol/L Creatinine (0.66-1.25) mg/dL Glucose (74-99) mg/dL POC Glucose (mg/dL) 126 H 119 H (70-110) mg/dL Calcium (8.4-10.2) mg/dL Total Protein (6.3-8.2) g/dL Albumin (3.5-5.0) g/dL 03/16/23 03/16/23 Range/Units 04:40 06:00 RBC (4.30-5.90) m/uL Hgb (13.0-17.5) gm/dL Hct (39.0-53.0) % MCV (80.0-100.0) fL ABG pCO2 33 L (35-45) mmHg ABG pO2 167 H (83-108) mmHg ABG O2 Saturation 99.6 H (94-97) % Chloride 111 H (98-107) mmol/L Creatinine 0.59 L (0.66-1.25) mg/dL Glucose 111 H (74-99) mg/dL POC Glucose (mg/dL) (70-110) mg/dL Calcium 7.7 L (8.4-10.2) mg/dL Total Protein 5.5 L (6.3-8.2) g/dL Albumin 2.3 L (3.5-5.0) g/dL Microbiology - Last 24 Hours (Table) 03/14/23 05:12 Gram Stain - Final Sputum Sputum Culture - Final 03/14/23 10:45 Blood Culture - Preliminary Blood 03/10/23 10:10 Blood Culture - Final Blood
--- NOTE | 2023-03-16 13:41 | OP ---
OPERATIVE REPORT DATE OF SERVICE : PROCEDURE PERFORMED: Placement of the right radial arterial line. PREOPERATIVE DIAGNOSIS: Acute respiratory failure secondary to aspiration pneumonia. POSTOPERATIVE DIAGNOSIS: Acute respiratory failure secondary to aspiration pneumonia. ANESTHESIA USE: None deployed. PROCEDURE: The right wrist was prepared in a sterile fashion. Drapes were applied. The right radial artery was palpated, cannulated easily, and a guidewire was placed. A Cook's catheter was inserted over the guidewire, and the guidewire was removed. Good blood flow, good waveform, no complications, line was secured using 3.0 silk sutures. MMODL / IJN: [id number] /
[2023-03-16] MEDS ORDERED: IV FLUID CONTINUATION 1,000 ML IV ONE (15:39)
[2023-03-16] MEDS ORDERED: ROCURONIUM 10 MG/ML (5 ML VIAL) IV ONE (15:40)
[2023-03-16] MEDS ORDERED: MIDAZOLAM 2 MG/2 ML VIAL ONE (15:40)
[2023-03-16] MEDS: ZINC SULFATE 220 MG CAP PO SCH (15:58)
[2023-03-16] MEDS: ASCORBIC ACID 500 MG TAB PO SCH (15:58)
[2023-03-16] MEDS: FLUCONAZOLE 100 MG TAB PO SCH (15:58)
[2023-03-16] MEDS: CHOLECALCIFEROL 125 MCG (5000 IU) TABLET PO SCH (15:58)
[2023-03-16] MEDS: LACTOBACILLUS ACIDOPHILUS/PECT 1 EACH CAPSULE PO SCH ×3 (15:58→20:39)
[2023-03-16] MEDS: METOPROLOL TARTRATE 50 MG TAB PO SCH (15:59)
--- NOTE | 2023-03-16 16:07 | P.OP ---
Date of Procedure: 03/16/23 Preoperative Diagnosis: Protein calorie malnutrition Postoperative Diagnosis: Protein calorie malnutrition Procedure(s) Performed: EGD with PEG tube placement Anesthesia: MAC Surgeon: Migue Whipple Pathology: none sent Condition: stable Disposition: PACU Description of Procedure: The patient's placed on his bed in the lateral position. He received IV sedation. Next the gastroscope placed oropharynx passed in the esophagus and stomach. There is no evidence of any outlet obstruction. Stomach was insufflated with air. The light reflux seen the anterior abdominal wall. The abdomen was prepped and draped usual fashion. The skin was incised. And the needles placed and stomach under direct visualization. The needle was snared. And the wires placed through the needle and the wire was snared and brought the oropharynx. The PEG tube was placed over top the wire brought down to the stomach. The PEG tube was secured. At the 3 cm esther. The one-piece bolster was used. Patient tolerated procedure well.
[2023-03-16 17:48] LABS: Glucose,Whole Blood 89 mg/dL (70-110)
[2023-03-16] MEDS ORDERED: ACETAMINOPHEN IV (For NPO) 1,000 MG in EMPTY BAG 1 BAG IVPB ONE (18:30)
[2023-03-16 18:54] LABS: ABG Base Excess -0.6 mmol/L; ABG HCO3 24 mmol/L (21-25); ABG Oxygen Saturation 98.8 % (94-97); ABG PCO2 36 mmHg (35-45); ABG PH 7.43 (7.35-7.45); ABG PO2 130 mmHg (83-108); ABG TCO2 25 mmol/L (19-24)
[2023-03-16] MEDS: HYDROmorphone 0.5 MG/0.5 ML SYRINGE IVP PRN (21:03)
[2023-03-16] MEDS: AMIODARONE 450 MG in DEXTROSE 5% IN WATER 250 ML IV SCH ×2 (21:03)
[2023-03-17 00:10] LABS: Glucose,Whole Blood 95 mg/dL (70-110)
[2023-03-17] MEDS: PIPERACILLIN-TAZOBACTAM 3.375 GM in SODIUM CHLORIDE 0.9% 100 ML IVPB SCH ×4 (02:32→23:32)
[2023-03-17] MEDS: IPRATROPIUM-ALBUTEROL 3 ML NEB INHALATION PRN (03:34)
[2023-03-17] MEDS: HYDROmorphone 0.5 MG/0.5 ML SYRINGE IVP PRN ×3 (03:41→07:50)
[2023-03-17 05:22] LABS: HCT 28.2 % (39.0-53.0); HGB 9.7 gm/dL (13.0-17.5); MCH 34.4 pg (25.0-35.0); MCHC 34.5 g/dL (31.0-37.0); MCV 99.8 fL (80.0-100.0); Macrocytosis Slight; Mean Platelet Volume 7.5; Platelet Count 173 k/uL (150-450); RBC 2.82 m/uL (4.30-5.90); RDW 13.6 % (11.5-15.5); WBC 7.5 k/uL (3.8-10.6)
[2023-03-17] MEDS: NOREPINEPHRINE 4 MG in SODIUM CHLORIDE 0.9% 250 ML IV SCH (05:29)
[2023-03-17 05:30] LABS: ALT 48 U/L (4-49); AST 32 U/L (17-59); African American GFR (CKD) >90 (>60 ml/min/1.73 sqM); Albumin 2.4 g/dL (3.5-5.0); Alkaline Phosphatase 56 U/L (38-126); Anion Gap 4 mmol/L; Blood Urea Nitrogen 15 mg/dL (9-20); Calcium 7.8 mg/dL (8.4-10.2); Carbon Dioxide 24 mmol/L (22-30); Chloride 109 mmol/L (98-107); Glucose 101 mg/dL (74-99); Non-African American GFR(CKD) >90 (>60 ml/min/1.73 sqM); Potassium 3.7 mmol/L (3.5-5.1); Sodium 137 mmol/L (137-145); Total Bilirubin 0.9 mg/dL (0.2-1.3); Total Protein 5.7 g/dL (6.3-8.2)
[2023-03-17 05:43] LABS: ABG Base Excess 1.4 mmol/L; ABG HCO3 25 mmol/L (21-25); ABG Oxygen Saturation 98.4 % (94-97); ABG PCO2 34 mmHg (35-45); ABG PH 7.47 (7.35-7.45); ABG PO2 105 mmHg (83-108); ABG TCO2 26 mmol/L (19-24); Allen Test Performed? Yes
--- NOTE | 2023-03-17 06:56 | XR ---
EXAMINATION TYPE: XR chest 1V portable DATE OF EXAM: 03/17/2023 6:50 AM COMPARISON: Chest radiographs from 03/16/2023 TECHNIQUE: XR chest 1V portable Portable AP radiograph of the chest. CLINICAL INDICATION:Male, 77 years old with history of mechanical ventilation; FINDINGS: Lungs/Pleura: No pleural effusion or pneumothorax. Bibasilar airspace opacities redemonstrated. Pulmonary vascularity: Unremarkable. Heart/mediastinum: Cardiomediastinal silhouette is unremarkable. Musculoskeletal: No acute osseous pathology. Degenerative changes of the thoracic spine. Bilateral sh oulder arthropathy. Other findings: None Lines/Tubes: Stable endotracheal tube and left subclavian approach central venous catheter. Interval removal of en teric tube. IMPRESSION: 1. Bibasilar airspace opacities redemonstrated which may represent atelectasis versus infiltrates. 2. Stable endotracheal and left subclavian approach CVC. Interval removal of enteric tube.
--- NOTE | 2023-03-17 07:33 | P.PN ---
Subjective Progress Note Date: 03/16/23 Principal diagnosis: Fever Patient is a 77-year-old male presenting to the hospital y after the patient was found to be unresponsive by the , patient has been febrile initial testing negative including LP which was only mildly elevated protein. Patient did have a episode of vomiting followed by worsening of his respiratory status initially on BiPAP subsequently ended up getting intubated manager practice of 03/14/2023 On today's evaluation that is 03/16/2023, the patient continues to be afebrile, the patient is intubated on the vent FiO2 is downt o 40% , the patient is hemodynamically stable and off the pressor support no other changes reported by the nursing staff patient white count is 8.1, creatinine 0.59 Objective - Vital Signs Vital signs: Vital Signs Temp 98.2 F 03/16/23 08:00 Pulse 75 03/16/23 10:00 Resp 22 03/16/23 10:00 BP 115/65 03/16/23 10:00 Pulse Ox 98 03/16/23 10:00 FiO2 40 03/16/23 09:39 Intake & Output 03/15/23 03/16/23 03/16/23 18:59 06:59 18:59 Intake Total 2523.527 1640.72 604.210 Output Total 970 880 975 Balance 1553.527 760.72 -370.790 Weight 99.6 kg Intake: IV 1316 1072 496 Normal Saline Pressure 66 72 21 Bag Piperacillin-Tazobactam 3 200 100 100 .375 gm In Sodium Chloride 0.9% 100 ml @ 25 mls/hr IVPB Q8HR [facility] Rx# :[id number] Sodium Chloride 0.9% 1, 1050 900 375 000 ml @ 75 mls/hr IV . [id number] [facility] Rx#:[id number] Intake, IV Titration 532.527 183.72 98.210 Amount Amiodarone 450 mg In 306.395 Dextrose 5% in Water 250 ml @ 0.5 MG/MIN 16.667 mls/hr IV .Q15H [facility] Rx#: [id number] propofoL 1,000 mg In 226.132 183.72 98.210 Empty Bag 1 bag @ 15 MCG/ KG/MIN 8.28 mls/hr IV . Q12H5M [facility] Rx#:[id number] Oral 10 Tube Feeding 585 325 Other 90 60 Output: Urine 970 880 975 Other: Voiding Method Indwelling Catheter Indwelling Catheter Indwelling Catheter ABP, PAP, CO, CI - Last Documented Arterial Blood Pressure 121/50 - Exam GENERAL DESCRIPTION: An elderly male intubated on the vent RESPIRATORY SYSTEM: Unlabored breathing , coarse breath sounds bilaterally HEART: S1 S2 regular rate and rhythm , ABDOMEN: Soft , no tenderness EXTREMITIES: No edema feet - Labs CBC & Chem 7: 03/17/23 04:55 03/17/23 04:55 Labs: Abnormal Lab Results - Last 24 Hours (Table) 03/15/23 03/15/23 03/16/23 Range/Units 13:18 18:08 04:40 RBC 2.90 L (4.30-5.90) m/uL Hgb 9.9 L (13.0-17.5) gm/dL Hct 29.6 L (39.0-53.0) % MCV 101.7 H (80.0-100.0) fL ABG pCO2 (35-45) mmHg ABG pO2 (83-108) mmHg ABG O2 Saturation (94-97) % Chloride (98-107) mmol/L Creatinine (0.66-1.25) mg/dL Glucose (74-99) mg/dL POC Glucose (mg/dL) 126 H 119 H (70-110) mg/dL Calcium (8.4-10.2) mg/dL Total Protein (6.3-8.2) g/dL Albumin (3.5-5.0) g/dL 03/16/23 03/16/23 Range/Units 04:40 06:00 RBC (4.30-5.90) m/uL Hgb (13.0-17.5) gm/dL Hct (39.0-53.0) % MCV (80.0-100.0) fL ABG pCO2 33 L (35-45) mmHg ABG pO2 167 H (83-108) mmHg ABG O2 Saturation 99.6 H (94-97) % Chloride 111 H (98-107) mmol/L Creatinine 0.59 L (0.66-1.25) mg/dL Glucose 111 H (74-99) mg/dL POC Glucose (mg/dL) (70-110) mg/dL Calcium 7.7 L (8.4-10.2) mg/dL Total Protein 5.5 L (6.3-8.2) g/dL Albumin 2.3 L (3.5-5.0) g/dL Microbiology - Last 24 Hours (Table) 03/14/23 05:12 Gram Stain - Final Sputum Sputum Culture - Final 03/14/23 10:45 Blood Culture - Preliminary Blood 03/10/23 10:10 Blood Culture - Final Blood Assessment and Plan (1) Fever Current Visit: Yes Status: Acute Code(s): R50.9 - FEVER, UNSPECIFIED SNOMED Code(s): 441811583 (2) Pneumonia Current Visit: Yes Status: Acute Code(s): J18.9 - PNEUMONIA, UNSPECIFIED ORGANISM SNOMED Code(s): 748797435 (3) West Nile Virus infection Current Visit: Yes Status: Acute Code(s): A92.30 - WEST NILE VIRUS INFECTION, UNSPECIFIED SNOMED Code(s): 887217700 Plan: 1patient with encephalitis/meningitis ,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, the treatment is mostly supportive, there is some role for immunoglobulin infusion which the patient has already received 2-episode of vomiting aspiration and acute respiratory failure requiring intubation--, patient with likely aspiration pneumonia, blood and sputum culture currently pending patient white count has normalized 3- we will continue with the Zosyn and monitor clinical course closely Multiple family member at the bedside questions were answered Dictation was produced using View3 dictation software. please excuse any grammatical, word or spelling errors.
[2023-03-17] MEDS: IPRATROPIUM-ALBUTEROL 3 ML NEB INHALATION SCH ×3 (07:37→20:52)
[2023-03-17] MEDS: ASCORBIC ACID 500 MG TAB PO SCH (07:40)
[2023-03-17] MEDS: AMIODARONE 200 MG TAB PO SCH ×3 (07:40→21:35)
[2023-03-17] MEDS: CHOLECALCIFEROL 125 MCG (5000 IU) TABLET PO SCH (07:41)
[2023-03-17] MEDS: FLUCONAZOLE 100 MG TAB PO SCH (07:41)
[2023-03-17] MEDS: LACTOBACILLUS ACIDOPHILUS/PECT 1 EACH CAPSULE PO SCH ×3 (07:41→21:35)
[2023-03-17] MEDS: ZINC SULFATE 220 MG CAP PO SCH (07:42)
[2023-03-17] MEDS: POTASSIUM CHLORIDE 10 MEQ in WATER FOR INJECTION 1 100ML.BAG IVPB SCH ×2 (07:51→09:37)
[2023-03-17] MEDS: CHLORHEXIDINE GLUCONATE 15 ML CUP MUCOUS MEM SCH (07:51)
[2023-03-17] MEDS: PANTOPRAZOLE 40 MG/10 ML VIAL IVP SCH (08:32)
--- NOTE | 2023-03-17 08:32 | P.PN ---
Subjective Progress Note Date: 03/17/23 Principal diagnosis: Altered mental status This is a 77-year-old male who presented to the ER with concerns of altered mental status. His had found him on the ground prior to coming to the ER. He was placed in ICU, has had tachycardia with hypotension. He also continues t o have intermittent fevers. Workup for bacterial meningitis was negative. EEG was negative for seizure activity. Further workup still in progress. Patient still has a white count today. He is seen laying in bed in the ICU this morning, in no acute distress. 03/02/2023 Patient is seen and evaluated sitting up in bed in ICU. Over the weekend patient developed atrial fibrillation with RVR. He remains on a heparin drip. Patient also began to be more alert over the weekend, responds to verbal commands, does have garbled speech. Neurology has ordered an MRI of the brain. 03/05/2023 Patient is seen and evaluated laying in bed in ICU. He continues to be not very arousable, not alert today. Speech remains garbled. Labs have come back showing West Nile virus, infectious disease already consulted, await their recommendations. 03/09/2023 Patient is seen and evaluated on step-down unit. He did receive 3 doses of IVIG. NG tube and feeding still in place. Speech still garbled, he is arousable though and able to follow simple commands 03/10/2023 Patient is seen and evaluated on step-down unit. White count elevated today, no fever. Chest XR pending. Patient looks more restless in the bed today. 03/12/2023 Patient seen and evaluated laying in bed this morning. He is more alert today, speech is still garbled. His white count is trending down. 03/16/2023 Patient aspirated over the weekend and ended up back in ICU. He remains on mechanical ventilation. Plan is for peg-tube today. 03/17/2023 Patient had PEG tube placed yesterday, tolerated procedure well. Plan for today is to trial weaning off mechanical ventilation. He was arousable during my exam today, opening his eyes. Objective - Vital Signs Vital signs: Vital Signs Temp 98.2 F 03/17/23 08:00 Pulse 69 03/17/23 08:00 Resp 22 03/17/23 08:00 BP 126/75 03/16/23 19:00 Pulse Ox 100 03/17/23 08:00 FiO2 40 03/17/23 08:00 Intake & Output 03/16/23 03/17/23 03/17/23 18:59 06:59 18:59 Intake Total 2287.271 4826.956 334.036 Output Total 2075 1540 340 Balance -620.212 -441.044 -5.964 Intake: IV 1263 972 262 Normal Saline Pressure 63 72 12 Bag Piperacillin-Tazobactam 3 200 100 .375 gm In Sodium Chloride 0.9% 100 ml @ 25 mls/hr IVPB Q8HR [facility] Rx# :[id number] Sodium Chloride 0.9% 1, 900 900 150 000 ml @ 75 mls/hr IV . [id number] [facility] Rx#:[id number] Intake, IV Titration 181.788 126.956 72.036 Amount propofoL 1,000 mg In 181.788 126.956 72.036 Empty Bag 1 bag @ 15 MCG/ KG/MIN 8.28 mls/hr IV . Q12H5M [facility] Rx#:[id number] Oral 10 Output: Urine 2075 1540 340 Other: Voiding Method Indwelling Catheter Indwelling Catheter ABP, PAP, CO, CI - Last Documented Arterial Blood Pressure 119/44 - Constitutional General appearance: Present: cooperative, no acute distress - Neck Neck: Present: normal ROM. Absent: lymphadenopathy, rigidity - Respiratory Respiratory: bilateral: CTA - Cardiovascular Rhythm: regular Heart sounds: normal: S1, S2 - Gastrointestinal General gastrointestinal: Present: soft. Absent: tenderness - Integumentary Integumentary: Present: normal, normal turgor - Musculoskeletal Musculoskeletal: Present: generalized weakness - Labs CBC & Chem 7: 03/17/23 04:55 03/17/23 04:55 Labs: Abnormal Lab Results - Last 24 Hours (Table) 03/16/23 03/17/23 03/17/23 Range/Units 18:51 04:55 04:55 RBC 2.82 L (4.30-5.90) m/uL Hgb 9.7 L (13.0-17.5) gm/dL Hct 28.2 L (39.0-53.0) % ABG pH (7.35-7.45) ABG pCO2 (35-45) mmHg ABG pO2 130 H (83-108) mmHg ABG Total CO2 25 H (19-24) mmol/L ABG O2 Saturation 98.8 H (94-97) % Chloride 109 H (98-107) mmol/L Creatinine 0.54 L (0.66-1.25) mg/dL Glucose 101 H (74-99) mg/dL Calcium 7.8 L (8.4-10.2) mg/dL Total Protein 5.7 L (6.3-8.2) g/dL Albumin 2.4 L (3.5-5.0) g/dL 03/17/23 Range/Units 05:40 RBC (4.30-5.90) m/uL Hgb (13.0-17.5) gm/dL Hct (39.0-53.0) % ABG pH 7.47 H (7.35-7.45) ABG pCO2 34 L (35-45) mmHg ABG pO2 (83-108) mmHg ABG Total CO2 26 H (19-24) mmol/L ABG O2 Saturation 98.4 H (94-97) % Chloride (98-107) mmol/L Creatinine (0.66-1.25) mg/dL Glucose (74-99) mg/dL Calcium (8.4-10.2) mg/dL Total Protein (6.3-8.2) g/dL Albumin (3.5-5.0) g/dL Microbiology - Last 24 Hours (Table) 03/14/23 10:45 Blood Culture - Preliminary Blood 03/14/23 05:12 Gram Stain - Final Sputum Sputum Culture - Final Assessment and Plan (1) Altered mental status Current Visit: Yes Status: Acute Code(s): R41.82 - ALTERED MENTAL STATUS, U NSPECIFIED SNOMED Code(s): 198317746 (2) Pneumonia Current Visit: Yes Status: Acute Code(s): J18.9 - PNEUMONIA, UNSPECIFIED ORGANISM SNOMED Code(s): 299936566 (3) Septic shock Current Visit: Yes Status: Acute Code(s): A41.9 - SEPSIS, UNSPECIFIED ORGANI SM; R65.21 - SEVERE SEPSIS WITH SEPTIC SHOCK SNOMED Code(s): 02923186 (4) Atrial fibrillation Current Visit: Yes Status: Acute Code(s): I48.91 - UNSPECIFIED ATRIAL FIBRILLATION SNOMED Code(s): 96846018 (5) West Nile Virus infection Current Visit: Yes Status: Acute Code(s): A92.30 - WEST NILE VIRUS INFECTION, UNSPECIFIED SNOMED Code(s): 011094631 Plan: CBC and CMP in the morning. Appreciate multiple consultants. Patient seen and evaluated by nurse practitioner, physician in agreement with plan
[2023-03-17] MEDS: AMIODARONE 450 MG in DEXTROSE 5% IN WATER 250 ML IV SCH ×2 (10:01)
[2023-03-17 10:25] LABS: ABG Base Excess 0.4 mmol/L; ABG HCO3 25 mmol/L (21-25); ABG Oxygen Saturation 99.1 % (94-97); ABG PCO2 38 mmHg (35-45); ABG PH 7.42 (7.35-7.45); ABG PO2 137 mmHg (83-108); ABG TCO2 26 mmol/L (19-24); Allen Test Performed? Yes
[2023-03-17 11:50] LABS: Glucose,Whole Blood 110 mg/dL (70-110)
--- NOTE | 2023-03-17 12:32 | P.PN ---
Subjective Progress Note Date: 03/17/23 CHIEF COMPLAINT: Altered mental status HISTORY OF PRESENT ILLNESS: Patient postop day #1 status post PEG tube placement. 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 Patient has failed a swallowing eval's. Currently in the ICU on mechanical ventilation. Afebrile. WBC 7.5 PHYSICAL EXAM: VITAL SIGNS: Reviewed. GENERAL: no acute distress. ABDOMEN: Soft. Nondistended. PEG tube site clean dry and intact NEUROLOGIC: Intubated ASSESSMENT: 1. Dysphagia 2. Mild protein calorie malnutrition 3. Failed swallow eval 4. West Nile virus encephalitis PLAN: -Consult dietitian to start tube feeds this around 3pm this afternoon -Dietitian to titrate tube feedings Physician Coil Winding Supervisor note has been reviewed by physician. Signing provider agrees with the documented findings, assessment, and plan of care. Objective - Vital Signs Vital signs: Vital Signs Temp 98.2 F 03/17/23 08:00 Pulse 79 03/17/23 10:00 Resp 22 03/17/23 10:00 BP 126/75 03/16/23 19:00 Pulse Ox 99 03/17/23 10:00 FiO2 40 03/17/23 10:28 Intake & Output 03/16/23 03/17/23 03/17/23 18:59 06:59 18:59 Intake Total 3341.525 1958.956 919.051 Output Total 2075 1540 640 Balance -620.212 -441.044 279.051 Weight 99.6 kg Intake: IV 1263 972 624 Normal Saline Pressure 63 72 24 Bag Piperacillin-Tazobactam 3 200 100 .375 gm In Sodium Chloride 0.9% 100 ml @ 25 mls/hr IVPB Q8HR [facility] Rx# :[id number] Potassium Chloride 10 meq 200 In Water For Injection 1 100ml.bag @ 100 mls/hr IVPB Q1H [facility] Rx#: [id number] Sodium Chloride 0.9% 1, 900 900 300 000 ml @ 75 mls/hr IV . [id number] [facility] Rx#:[id number] Intake, IV Titration 181.788 126.956 295.051 Amount Amiodarone 450 mg In 216.115 Dextrose 5% in Water 250 ml @ 0.5 MG/MIN 16.667 mls/hr IV .Q15H [facility] Rx#: [id number] propofoL 1,000 mg In 181.788 126.956 78.936 Empty Bag 1 bag @ 15 MCG/ KG/MIN 8.28 mls/hr IV . Q12H5M [facility] Rx#:[id number] Oral 10 Output: Urine 1118 1540 640 Other: Voiding Method Indwelling Catheter Indwelling Catheter Indwelling Catheter ABP, PAP, CO, CI - Last Documented Arterial Blood Pressure 160/61 - Labs CBC & Chem 7: 03/17/23 04:55 03/17/23 04:55 Labs: Abnormal Lab Results - Last 24 Hours (Table) 03/16/23 03/17/23 03/17/23 Range/Units 18:51 04:55 04:55 RBC 2.82 L (4.30-5.90) m/uL Hgb 9.7 L (13.0-17.5) gm/dL Hct 28.2 L (39.0-53.0) % ABG pH (7.35-7.45) ABG pCO2 (35-45) mmHg ABG pO2 130 H (83-108) mmHg ABG Total CO2 25 H (19-24) mmol/L ABG O2 Saturation 98.8 H (94-97) % Chloride 109 H (98-107) mmol/L Creatinine 0.54 L (0.66-1.25) mg/dL Glucose 101 H (74-99) mg/dL Calcium 7.8 L (8.4-10.2) mg/dL Total Protein 5.7 L (6.3-8.2) g/dL Albumin 2.4 L (3.5-5.0) g/dL 03/17/23 03/17/23 Range/Units 05:40 10: RBC (4.30-5.90) m/uL Hgb (13.0-17.5) gm/dL Hct (39.0-53.0) % ABG pH 7.47 H (7.35-7.45) ABG pCO2 34 L (35-45) mmHg ABG pO2 137 H (83-108) mmHg ABG Total CO2 26 H 26 H (19-24) mmol/L ABG O2 Saturation 98.4 H 99.1 H (94-97) % Chloride (98-107) mmol/L Creatinine (0.66-1.25) mg/dL Glucose (74-99) mg/dL Calcium (8.4-10.2) mg/dL Total Protein (6.3-8.2) g/dL Albumin (3.5-5.0) g/dL Microbiology - Last 24 Hours (Table) 03/14/23 10:45 Blood Culture - Preliminary Blood 03/14/23 05:12 Gram Stain - Final Sputum Sputum Culture - Final
--- NOTE | 2023-03-17 12:46 | P.PN ---
Subjective Progress Note Date: 03/17/23 Principal diagnosis: Sepsis and mental status change, West Nile virus encephalitis, aspiration pneumonia I am seeing this patient in new consultation today 02/24/2023 after the patient presented to the ER yesterday evening with concerns of altered mental status. Patient is a 77-year-old white male with a limited past medical history. Apparently, the patient's found him down on the ground early yesterday morning confused. His last known well time was the night prior. Nonenhanced brain CT on arrival shows age-related atrophic and chronic small vessel ischemia without any obvious acute cranial process. Initial chest x-ray on arrival showed fullness around the right hilum likely related patient rotation. Underlying infiltrate or mass not excluded. CBC shows leukocytosis with a WBC count of 16, hemoglobin 13.5, hematocrit 39.1, platelets 109,000. BMP shows sod ium 136, potassium 3.7, chloride 110, serum bicarb 17, BUN 36, creatinine 1.22, glucose 102. LFTs are mildly elevated. Troponins are 1.66 and 1.9. Urinalysis not particularly concerning for UTI. Negative for influenza, RSV, COVID-19. Patient was originally admitted to the floor, and was transferred to the ICU last night for tachycardia and hypotension. Yesterday, he was given a total of 2.5 L normal saline bolus. On my evaluation, the patient is lying in bed, extremities are rigid, he is febrile with a t-max of 103 F. He is on 2 L/m nasal cannula, oxygenating around 94%. He is disoriented and unable to provide any meaningful information. He mostly mumbles. I did speak to the patient's daughter, who denies any recent sinus, ear, or pulmonary infections. I am concerned for possible encephalitis or meningitis. I spoke with neurology last night, and updated them on the patient. There is an EEG pending for the morning. Patient is empirically covered with combination of ampicillin, vancomycin, and Rocephin. Infectious disease consult was also placed. Heart rhythm is currently normal sinus on bedside monitor. Blood pressure is normotensive. Normal saline is infusing at 130 ML's per hour. No need for vasopressors at this time. Patient will need a thorough neurological workup. He is being monitored in the intensive care unit in the meantime. On 03/13/2023, no change in neurologic functions and the patient remains in the same neurologic status. He continues to receive enteral feeding for nutritional support via an NG tube. The patient will need a PEG tube and this has been tentatively scheduled to be done on 03/16/2023. Anticoagulation will placed on hold for now. No other complaints. No signs of any respiratory distress. The blood work shows a BUN of 36 with a creatinine of 0.7. The white cell count 15.4 with a hemoglobin of 13 and a platelet count of 218. Blood sugars at 219. The patient will be having a PEG tube insertion for enteral feeding and nu tritional support. 03/14/2023, the patient is being seen for a follow-up in the intensive care unit . Events from overnight was noted. The patient had massive aspiration. Apparently the NG tube got misplaced and the patient was having enteral feeding into his lungs. He became acutely short of breath, he went into respiratory distress. He was placed on 100% nonrebreather facemask. He was tried on a BiPAP which she failed and ultimately had to be intubated and placed on a mechanical ventilator. Post intubation, the patient became quite hypotensive. He received a total of 2.5 L of IV fluid and currently he is on normal saline running at the rate of 150 mL an hour. He is sedated with propofol at 25 mcg/kg/m. He is on a mechanical ventilator assist control mode with a rate of 28, tidal volume of 500, FiO2 of 50% with a PEEP of 5. An arterial line was inserted. He will also need a central line. 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 His chest x-ray immediately post aspiration showed some new infiltrates in his right upper lobe. NG tube has been removed. The patient has a orogastric tube in place for now. The patient is currently on IV Zosyn. The chest x-ray reveals new bilateral pulmonary infiltrates more so in the upper lobes. Lung bases are at this period. Orogastric tube is in the stomach. The white cell count is at 36.4, with a hemoglobin of 11.8 and a platelet count of 278. BUN is 46 with a creatinine of 1.08 and sodium levels of 137. Glucose at 128. Urine output is in order of 20 mL an hour. He is currently afebrile. 03/14/2023, the patient is being seen for a follow-up. Remains intubated on a mechanical ventilator. Earlier this morning, he was taken off the pressors and he is currently hemodynamically stable. At the same time, he had an issue with a SVT yesterday. He was given amiodarone and he was bolused and currently is on a maintenance of 0.5 mg/m. His cardiac rhythm is back into sinus rhythm. He remains on propofol which is running at 30 mcg/kg/m. He remains on a mechanical ventilator, assist control mode at the rate of 28, tidal volume of 500, FiO2 of 50% with a PEEP of 5. Blood gas shows improvement in oxygenation with a pH of 7.44 and a pO2 of 174 and a pCO2 of 30. White cell count is down to 12.8. Hemoglobin is at 10.4 and a platelet count is at 199. BUN is at 29 with a creatinine of 0.6 and the sodium levels is 137. Chest x-ray from yesterday shows limited bibasilar and right sided infiltrate. Orotracheal tube is in a good location. He has a left-sided triple-lumen catheter in place. Adequate urine output. Response to painful stimulation. His encephalopathic due to his underlying West Nile virus encephalitis. Pro-calcitonin level was at 4.25 indicating sepsis. The patient was aggressively resuscitated with IV fluids. IV fluids are currently running with normal saline at rate of 150 mL an hour. As mentioned, he is off pressors. Patient was seen and examined today on 03/16/2023, patient remains in the ICU, intubated and mechanically he is on assist control rate of 28 tidal volume 500 FiO2 of 50% and PEEP is 5. ABG showed a pO2 of 167 pCO2 of 33 pH of 7.44. Ches t x-ray continues to show evidence of minimal bibasilar infiltrates, right more so than left. His vent settings were changed I cut him down to a rate of 22 and I cut down the FiO2 to 40% instead of 50%, patient remains on propofol at 40 mcg/kg/m of the fluid 0.9 normal saline at 75 mL/h he remains nothing by mouth, nasogastric tube is in place, urine output seems to be excellent. Patient remains on Zosyn for presumptive aspiration pneumonia. Patient is scheduled to have a PEG tube placed today. Obviously the patient is not quite ready for weaning and extubation, however I do plan to consider start weaning trials in the next 24 hours. WBC count is 8.1 hemoglobin is 9.9 electrolytes are normal renal profile is normal Patient was reevaluated today on 03/17/2023, patient underwent uneventful placement of a PEG tube yesterday. However today he remains intubated and mechanically ventilated he is on assist control rate of 22 to volume 500 FiO2 40% and PEEP of 5 ABG showed a pO2 of 105 pCO2 34 pH 7.47. Patient remains on propofol at 10 mcg/kg/m IV fluid at 75 mL per hour and amiodarone 0.5 mg/m. Patient was also on diltiazem, and he is on Zosyn for antibiotics/aspiration pneumonia. CBC showed WBC count of 7.5 hemoglobin 9.7 electrodes are normal renal profile is normal chest x-ray showed bibasilar opacity/minimal infiltrate/atelectasis. Objective - Vital Signs Vital signs: Vital Signs Temp 97.7 F 03/17/23 12:00 Pulse 80 03/17/23 12:00 Resp 24 03/17/23 12:00 BP 126/75 03/16/23 19:00 Pulse Ox 97 03/17/23 12:00 FiO2 40 03/17/23 10:28 Intake & Output 03/16/23 03/17/23 03/17/23 18:59 06:59 18:59 Intake Total 7254.422 8143.956 931.051 Output Total 2075 1540 890 Balance -620.212 -441.044 41.051 Weight 99.6 kg Intake: IV 1263 972 636 Normal Saline Pressure 63 72 36 Bag Piperacillin-Tazobactam 3 200 100 .375 gm In Sodium Chloride 0.9% 100 ml @ 25 mls/hr IVPB Q8HR [facility] Rx# :[id number] Potassium Chloride 10 meq 200 In Water For Injection 1 100ml.bag @ 100 mls/hr IVPB Q1H [facility] Rx#: [id number] Sodium Chloride 0.9% 1, 900 900 300 000 ml @ 75 mls/hr IV . [id number] [facility] Rx#:[id number] Intake, IV Titration 181.788 126.956 295.051 Amount Amiodarone 450 mg In 216.115 Dextrose 5% in Water 250 ml @ 0.5 MG/MIN 16.667 mls/hr IV .Q15H [facility] Rx#: [id number] propofoL 1,000 mg In 181.788 126.956 78.936 Empty Bag 1 bag @ 15 MCG/ KG/MIN 8.28 mls/hr IV . Q12H5M [facility] Rx#:[id number] Oral 10 Output: Urine 2075 1540 890 Other: Voiding Method Indwelling Catheter Indwelling Catheter Indwelling Catheter ABP, PAP, CO, CI - Last Documented Arterial Blood Pressure 135/58 - Exam GENERAL EXAM: Revealed a 77-year-old white male intubated sedated and mechanically ventilated, on propofol. HEAD: Normocephalic and atraumatic endotracheal tube and orogastric tube are intact. EYES: Normal reaction of pupils, equal size. NOSE: Clear with pink turbinates. THROAT: No erythema or exudates. NECK: No masses, no JVD. CHEST: No chest wall deformity. LUNGS: Minimal crackles at the bases. CVS: S1 and S2 normal with no audible murmur, regular rhythm. No extra heart sounds ABDOMEN: Obese soft nontender no megaly no rebound no guarding, PEG tube is inta ct. SKIN: No rashes CENTRAL NERVOUS SYSTEM: Unable to assess today mostly because the patient is sed ated, on propofol per EXTREMITIES: There is no peripheral edema, clubbing, or cyanosis. Peripheral pulses are intact. - Labs CBC & Chem 7: 03/17/23 04:55 03/17/23 04:55 Labs: Abnormal Lab Results - Last 24 Hours (Table) 03/16/23 03/17/23 03/17/23 Range/Units 18:51 04:55 04:55 RBC 2.82 L (4.30-5.90) m/uL Hgb 9.7 L (13.0-17.5) gm/dL Hct 28.2 L (39.0-53.0) % ABG pH (7.35-7.45) ABG pCO2 (35-45) mmHg ABG pO2 130 H (83-108) mmHg ABG Total CO2 25 H (19-24) mmol/L ABG O2 Saturation 98.8 H (94-97) % Chloride 109 H (98-107) mmol/L Creatinine 0.54 L (0.66-1.25) mg/dL Glucose 101 H (74-99) mg/dL Calcium 7.8 L (8.4-10.2) mg/dL Total Protein 5.7 L (6.3-8.2) g/dL Albumin 2.4 L (3.5-5.0) g/dL 03/17/23 03/17/23 Range/Units 05:40 10:23 RBC (4.30-5.90) m/uL Hgb (13.0-17.5) gm/dL Hct (39.0-53.0) % ABG pH 7.47 H (7.35-7.45) ABG pCO2 34 L (35-45) mmHg ABG pO2 137 H (83-108) mmHg ABG Total CO2 26 H 26 H (19-24) mmol/L ABG O2 Saturation 98.4 H 99.1 H (94-97) % Chloride (98-107) mmol/L Creatinine (0.66-1.25) mg/dL Glucose (74-99) mg/dL Calcium (8.4-10.2) mg/dL Total Protein (6.3-8.2) g/dL Albumin (3.5-5.0) g/dL Microbiology - Last 24 Hours (Table) 03/14/23 10:45 Blood Culture - Preliminary Blood 03/14/23 05:12 Gram Stain - Final Sputum Sputum Culture - Final Assessment and Plan Assessment: Impression: Acute hypoxic respiratory failure mostly secondary to aspiration pneumonia Acute aspiration pneumonia Acute West Nile virus encephalitis with mental status change on presentation Altered mental status, secondary to above Acute febrile illness and sepsis Leukocytosis, resolved, possible aspiration pneumonia. Acute rhabdomyolysis, resolved. Elevated LFTs, viral studies are pending, ultrasound showed hepatomegaly Elevated troponins, possibly related to supply/demand mismatch Episodic episodes of atrial fibrillation/SVT, on amiodarone. Elevated liver enzymes with ultrasound showing hepatomegaly Status post PEG tube placement Recommendation: Continue ventilatory support, however I will try to wean the patient today with pressure support and CPAP to begin with after stopping his propofol. Resume nutritional support via PEG tube Continue antibiotics/Zosyn Continue GI and DVT prophylaxis. Transition IV amiodarone to oral amiodarone later today once we can use the PEG tube Eliquis to be restarted orally once we can use the PEG tube Continue to monitor neurological status Patient remains critically ill. Will give the patient a trial of weaning today if tolerated will extubate we will continue to follow. Critical care time is over 30 Time with Patient: Greater than 30
--- NOTE | 2023-03-17 15:39 | P.PN ---
Subjective Progress Note Date: 03/17/23 Principal diagnosis: Fever Patient is a 77-year-old male presenting to the hospital y after the patient was found to be unresponsive by the , patient has been febrile initial testing negative including LP which was only mildly elevated protein. 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 On today's evaluation that is 03/17/2023, the patient remains to be afebrile, the patient got extubated this morning and is breathing comfortably on 3 L nasal canal oxygen patient is slightly lethargic unable to provide any history no vomiting or diarrhea has been reported by the nursing staff patient white count is 7.5, creatinine 0.54 Objective - Vital Signs Vital signs: Vital Signs Temp 98.2 F 03/17/23 08:00 Pulse 79 03/17/23 10:00 Resp 22 03/17/23 10:00 BP 126/75 03/16/23 19:00 Pulse Ox 99 03/17/23 10:00 FiO2 40 03/17/23 10:28 Intake & Output 03/16/23 03/17/23 03/17/23 18:59 06:59 18:59 Intake Total 4635.389 8050.956 931.051 Output Total 2075 1540 890 Balance -620.212 -441.044 41.051 Weight 99.6 kg Intake: IV 1263 972 636 Normal Saline Pressure 63 72 36 Bag Piperacillin-Tazobactam 3 200 100 .375 gm In Sodium Chloride 0.9% 100 ml @ 25 mls/hr IVPB Q8HR [facility] Rx# :[id number] Potassium Chloride 10 meq 200 In Water For Injection 1 100ml.bag @ 100 mls/hr IVPB Q1H [facility] Rx#: [id number] Sodium Chloride 0.9% 1, 900 900 300 000 ml @ 75 mls/hr IV . [id number] [facility] Rx#:[id number] Intake, IV Titration 181.788 126.956 295.051 Amount Amiodarone 450 mg In 216.115 Dextrose 5% in Water 250 ml @ 0.5 MG/MIN 16.667 mls/hr IV .Q15H [facility] Rx#: [id number] propofoL 1,000 mg In 181.788 126.956 78.936 Empty Bag 1 bag @ 15 MCG/ KG/MIN 8.28 mls/hr IV . Q12H5M [facility] Rx#:[id number] Oral 10 Output: Urine 3890 4289 890 Other: Voiding Method Indwelling Catheter Indwelling Catheter Indwelling Catheter ABP, PAP, CO, CI - Last Documented Arterial Blood Pressure 160/61 - Exam GENERAL DESCRIPTION: An elderly male lying in bed in no distress RESPIRATORY SYSTEM: Unlabored breathing , coarse breath sounds bilaterally HEART: S1 S2 regular rate and rhythm , ABDOMEN: Soft , no tenderness EXTREMITIES: No edema feet - Labs CBC & Chem 7: 03/17/23 04:55 03/17/23 04:55 Labs: Abnormal Lab Results - Last 24 Hours (Table) 03/16/23 03/17/23 03/17/23 Range/Units 18:51 04:55 04:55 RBC 2.82 L (4.30-5.90) m/uL Hgb 9.7 L (13.0-17.5) gm/dL Hct 28.2 L (39.0-53.0) % ABG pH (7.35-7.45) ABG pCO2 (35-45) mmHg ABG pO2 130 H (83-108) mmHg ABG Total CO2 25 H (19-24) mmol/L ABG O2 Saturation 98.8 H (94-97) % Chloride 109 H (98-107) mmol/L Creatinine 0.54 L (0.66-1.25) mg/dL Glucose 101 H (74-99) mg/dL Calcium 7.8 L (8.4-10.2) mg/dL Total Protein 5.7 L (6.3-8.2) g/dL Albumin 2.4 L (3.5-5.0) g/dL 03/17/23 03/17/23 Range/Units 05:40 : RBC (4.30-5.90) m/uL Hgb (13.0-17.5) gm/dL Hct (39.0-53.0) % ABG pH 7.47 H (7.35-7.45) ABG pCO2 34 L (35-45) mmHg ABG pO2 137 H (83-108) mmHg ABG Total CO2 26 H 26 H (19-24) mmol/L ABG O2 Saturation 98.4 H 99.1 H (94-97) % Chloride (98-107) mmol/L Creatinine (0.66-1.25) mg/dL Glucose (74-99) mg/dL Calcium (8.4-10.2) mg/dL Total Protein (6.3-8.2) g/dL Albumin (3.5-5.0) g/dL Microbiology - Last 24 Hours (Table) 03/14/23 10:45 Blood Culture - Preliminary Blood 03/14/23 05:12 Gram Stain - Final Sputum Sputum Culture - Final Assessment and Plan (1) Fever Current Visit: Yes Status: Acute Code(s): R50.9 - FEVER, UNSPECIFIED SNOMED Code(s): 775611980 (2) Pneumonia Current Visit: Yes Status: Acute Code(s): J18.9 - PNEUMONIA, UNSPECIFIED ORGANISM SNOMED Code(s): 729878696 (3) West Nile Virus infection Current Visit: Yes Status: Acute Code(s): A92.30 - WEST NILE VIRUS INFECTION, UNSPECIFIED SNOMED Code(s): 212315580 Plan: 1patient with encephalitis/meningitis ,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 please excuse any grammatical, word or spelling errors. Time with Patient: Less than 30
--- NOTE | 2023-03-17 16:01 | P.PN ---
Subjective Progress Note Date: 03/17/23 I followed up seeing the patient and I seen the patient last towards the end of February 2023. Please refer to Dr. Mills's note for further details. Seems as since I saw him last he was intubated because of respiratory issues then got extubated. Currently to show me a thumbs up that he's doing well. Objective - Vital Signs Vital signs: Vital Signs Temp 97.7 F 03/17/23 12:00 Pulse 80 03/17/23 12:00 Resp 24 03/17/23 12:00 BP 126/75 03/16/23 19:00 Pulse Ox 97 03/17/23 12:00 FiO2 40 03/17/23 10:28 Intake & Output 03/16/23 03/17/23 03/17/23 18:59 06:59 18:59 Intake Total 8948.927 2071.956 931.051 Output Total 2075 1540 890 Balance -620.212 -441.044 41.051 Weight 99.6 kg Intake: IV 1263 972 636 Normal Saline Pressure 63 72 36 Bag Piperacillin-Tazobactam 3 200 100 .375 gm In Sodium Chloride 0.9% 100 ml @ 25 mls/hr IVPB Q8HR [facility] Rx# :[id number] Potassium Chloride 10 meq 200 In Water For Injection 1 100ml.bag @ 100 mls/hr IVPB Q1H [facility] Rx#: [id number] Sodium Chloride 0.9% 1, 900 900 300 000 ml @ 75 mls/hr IV . [id number] [facility] Rx#:[id number] Intake, IV Titration 181.788 126.956 295.051 Amount Amiodarone 450 mg In 216.115 Dextrose 5% in Water 250 ml @ 0.5 MG/MIN 16.667 mls/hr IV .Q15H [facility] Rx#: [id number] propofoL 1,000 mg In 181.788 126.956 78.936 Empty Bag 1 bag @ 15 MCG/ KG/MIN 8.28 mls/hr IV . Q12H5M [facility] Rx#:[id number] Oral 10 Output: Urine 2075 1540 890 Other: Voiding Method Indwelling Catheter Indwelling Catheter Indwelling Catheter ABP, PAP, CO, CI - Last Documented Arterial Blood Pressure 135/58 - Exam General: The patient is lying in bed and does not appear in acute distress. Neuro: Limited because of his condition. Patient is mild drowsy but is awakeable to verbal stimuli. He followed very few minimal simple commands such as showing a thumbs up, smiling, opening and closing his eyes to command. No facial weakness. Motor: Strength is hard to assess individual muscles but it was briefly show me a thumbs up on both hands and was wiggling the toes. - Labs CBC & Chem 7: 03/17/23 04:55 03/17/23 04:55 Labs: Abnormal Lab Results - Last 24 Hours (Table) 03/16/23 03/17/23 03/17/23 Range/Units 18:51 04:55 04:55 RBC 2.82 L (4.30-5.90) m/uL Hgb 9.7 L (13.0-17.5) gm/dL Hct 28.2 L (39.0-53.0) % ABG pH (7.35-7.45) ABG pCO2 (35-45) mmHg ABG pO2 130 H (83-108) mmHg ABG Total CO2 25 H (19-24) mmol/L ABG O2 Saturation 98.8 H (94-97) % Chloride 109 H (98-107) mmol/L Creatinine 0.54 L (0.66-1.25) mg/dL Glucose 101 H (74-99) mg/dL Calcium 7.8 L (8.4-10.2) mg/dL Total Protein 5.7 L (6.3-8.2) g/dL Albumin 2.4 L (3.5-5.0) g/dL 03/17/23 03/17/23 Range/Units 05:40 10:23 RBC (4.30-5.90) m/uL Hgb (13.0-17.5) gm/dL Hct (39.0-53.0) % ABG pH 7.47 H (7.35-7.45) ABG pCO2 34 L (35-45) mmHg ABG pO2 137 H (83-108) mmHg ABG Total CO2 26 H 26 H (19-24) mmol/L ABG O2 Saturation 98.4 H 99.1 H (94-97) % Chloride (98-107) mmol/L Creatinine (0.66-1.25) mg/dL Glucose (74-99) mg/dL Calcium (8.4-10.2) mg/dL Total Protein (6.3-8.2) g/dL Albumin (3.5-5.0) g/dL Microbiology - Last 24 Hours (Table) 03/14/23 10:45 Blood Culture - Preliminary Blood Assessment and Plan Assessment: * 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 * New onset aspiration pneumonia, respiratory distress, now on mechanical ventilation. * Acute metabolic encephalopathy likely from severe pneumonia and West Nile virus. * SIRS, pneumonia * Acute rhabdomyolysis, resolving, most recent CK 719. * MRI cervical spine showed moderate spinal stenosis at C3-C4 level. * Generalized weakness, multifactorial, due to above conditions. * Elevated cardiac enzymes * New onset atrial fibrillation currently on Eliquis. * History of bilateral shoulder pain/arthritis * History of bilateral knee replacement. Plan: * Patient never had a seizure. His tremors likely related to West Nile virus. He had EEG performed twice, which did not reveal any epileptiform activity. Keppra was discontinued during this admission.. * MRI Brain w/ and w/o: Was reported as no evidence for encephalitis. No evidence of intracranial mass, acute/subacute infarct or abnormal enhancement. Nonspecific white matter changes, likely related to small vessel ischemic disease. * Repeat EEG performed 03/01/2023 was abnormal due to background slowing of moderate degree consistent with encephalopathy. No epileptiform activity was seen. When compared to the initial EEG from 02/24/2023, the background seems to have gotten worse. * CSF performed 02/24/2023 was colorless and clear. CSF glucose 52, protein 86 (12-60). WBC count 4, RBCs 358. Comprehensive viral detection negative. 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 For west nile it is usually supportive care. * MRI Cervical spine w/ and w/o: Is reported as mild to moderate multilevel degenerative disc disease with scattered facet and uncovertebral joint. Appendectomy. Degenerative grade 1 anterolisthesis C7 to T1. Moderate focal signal canal stenosis at C3-C4 with abutment and flattening of both the dorsal and ventral cord. Sagittal FLAIR sequence suggest some focal cord edema here. Correlate for myelopathic symptoms. The axial images are essentially nondiagnostic due to patient motion. Unable to adequately assess then neuroforamen. Orthopedic surgery team was consulted and they evaluated patient and no surgical intervention. On my review of MRI, there is moderate spinal stenosis at C3 [address] Mills, no significant cord signal changes. * Cardiology on board for new onset atrial fibrillation. Will defer anticoagulation regiment to cardiology team. * Other management as per IM, critical care team. * Neurology will follow peripherally. Time with Patient: Less than 30
[2023-03-17] MEDS: METOPROLOL TARTRATE 50 MG TAB PO SCH (16:10)
[2023-03-17] MEDS: SODIUM CHLORIDE 0.9% 1,000 ML IV SCH (16:11)
[2023-03-17] MEDS: SODIUM CHLORIDE 0.9% 500 ML 500 ML IV SCH (16:48)
[2023-03-17] MEDS: APIXABAN 5 MG TAB PO SCH ×2 (16:49→21:35)
[2023-03-17 17:55] LABS: Glucose,Whole Blood 101 mg/dL (70-110)
[2023-03-18 00:06] LABS: Glucose,Whole Blood 108 mg/dL (70-110)
[2023-03-18 05:15] LABS: HCT 28.7 % (39.0-53.0); HGB 9.9 gm/dL (13.0-17.5); MCH 33.5 pg (25.0-35.0); MCHC 34.4 g/dL (31.0-37.0); MCV 97.4 fL (80.0-100.0); Mean Platelet Volume 7.7; Platelet Count 163 k/uL (150-450); RBC 2.94 m/uL (4.30-5.90); RDW 13.3 % (11.5-15.5); WBC 9.3 k/uL (3.8-10.6)
[2023-03-18 05:24] LABS: ALT 47 U/L (4-49); AST 36 U/L (17-59); African American GFR (CKD) >90 (>60 ml/min/1.73 sqM); Albumin 2.4 g/dL (3.5-5.0); Alkaline Phosphatase 57 U/L (38-126); Anion Gap 6 mmol/L; Blood Urea Nitrogen 18 mg/dL (9-20); Calcium 7.9 mg/dL (8.4-10.2); Carbon Dioxide 24 mmol/L (22-30); Chloride 106 mmol/L (98-107); Glucose 119 mg/dL (74-99); Non-African American GFR(CKD) >90 (>60 ml/min/1.73 sqM); Potassium 3.7 mmol/L (3.5-5.1); Sodium 136 mmol/L (137-145); Total Bilirubin 0.9 mg/dL (0.2-1.3); Total Protein 5.6 g/dL (6.3-8.2)
[2023-03-18] MEDS ORDERED: Potassium Replacement Protocol 1 EACH MISC MISCELLANE PRN (06:03)
[2023-03-18 06:07] LABS: Glucose,Whole Blood 118 mg/dL (70-110)
[2023-03-18] MEDS ORDERED: POTASSIUM BICARBONATE/CIT AC 20 MEQ TABLET.EFF NG-TUBE SCH (07:00)
[2023-03-18] MEDS: IPRATROPIUM-ALBUTEROL 3 ML NEB INHALATION SCH ×3 (08:10→20:08)
[2023-03-18] MEDS: PIPERACILLIN-TAZOBACTAM 3.375 GM in SODIUM CHLORIDE 0.9% 100 ML IVPB SCH ×2 (08:14→15:58)
[2023-03-18] MEDS: APIXABAN 5 MG TAB PO SCH ×2 (08:35→21:48)
[2023-03-18] MEDS: PANTOPRAZOLE 40 MG/10 ML VIAL IVP SCH (08:35)
[2023-03-18] MEDS: LACTOBACILLUS ACIDOPHILUS/PECT 1 EACH CAPSULE PO SCH ×3 (08:35→21:48)
[2023-03-18] MEDS: AMIODARONE 200 MG TAB PO SCH ×2 (08:35→21:48)
[2023-03-18] MEDS: FLUCONAZOLE 100 MG TAB PO SCH (08:35)
[2023-03-18] MEDS: CHOLECALCIFEROL 125 MCG (5000 IU) TABLET PO SCH (08:36)
[2023-03-18] MEDS: ASCORBIC ACID 500 MG TAB PO SCH (08:36)
[2023-03-18] MEDS: ZINC SULFATE 220 MG CAP PO SCH (08:36)
[2023-03-18] MEDS ORDERED: DOCUSATE ORAL SOLN 100 MG/10 ML CUP PO PRN (09:39)
--- NOTE | 2023-03-18 11:33 | P.PN ---
Subjective Progress Note Date: 03/18/23 Principal diagnosis: Sepsis and mental status change, West Nile virus encephalitis, aspiration pneumonia I am seeing this patient in new consultation today 02/24/2023 after the patient presented to the ER yesterday evening with concerns of altered mental status. Patient is a 77-year-old white male with a limited past medical history. Apparently, the patient's found him down on the ground early yesterday morning confused. His last known well time was the night prior. Nonenhanced brain CT on arrival shows age-related atrophic and chronic small vessel ischemia without any obvious acute cranial process. Initial chest x-ray on arrival showed fullness around the right hilum likely related patient rotation. Underlying infiltrate or mass not excluded. CBC shows leukocytosis with a WBC count of 16, hemoglobin 13.5, hematocrit 39.1, platelets 109,000. BMP shows sod ium 136, potassium 3.7, chloride 110, serum bicarb 17, BUN 36, creatinine 1.22, glucose 102. LFTs are mildly elevated. Troponins are 1.66 and 1.9. Urinalysis not particularly concerning for UTI. Negative for influenza, RSV, COVID-19. Patient was originally admitted to the floor, and was transferred to the ICU last night for tachycardia and hypotension. Yesterday, he was given a total of 2.5 L normal saline bolus. On my evaluation, the patient is lying in bed, extremities are rigid, he is febrile with a t-max of 103 F. He is on 2 L/m nasal cannula, oxygenating around 94%. He is disoriented and unable to provide any meaningful information. He mostly mumbles. I did speak to the patient's daughter, who denies any recent sinus, ear, or pulmonary infections. I am concerned for possible encephalitis or meningitis. I spoke with neurology last night, and updated them on the patient. There is an EEG pending for the morning. Patient is empirically covered with combination of ampicillin, vancomycin, and Rocephin. Infectious disease consult was also placed. Heart rhythm is currently normal sinus on bedside monitor. Blood pressure is normotensive. Normal saline is infusing at 130 ML's per hour. No need for vasopressors at this time. Patient will need a thorough neurological workup. He is being monitored in the intensive care unit in the meantime. On 03/13/2023, no change in neurologic functions and the patient remains in the same neurologic status. He continues to receive enteral feeding for nutritional support via an NG tube. The patient will need a PEG tube and this has been tentatively scheduled to be done on 03/16/2023. Anticoagulation will placed on hold for now. No other complaints. No signs of any respiratory distress. The blood work shows a BUN of 36 with a creatinine of 0.7. The white cell count 15.4 with a hemoglobin of 13 and a platelet count of 218. Blood sugars at 219. The patient will be having a PEG tube insertion for enteral feeding and nu tritional support. 03/14/2023, the patient is being seen for a follow-up in the intensive care unit . Events from overnight was noted. The patient had massive aspiration. Apparently the NG tube got misplaced and the patient was having enteral feeding into his lungs. He became acutely short of breath, he went into respiratory distress. He was placed on 100% nonrebreather facemask. He was tried on a BiPAP which she failed and ultimately had to be intubated and placed on a mechanical ventilator. Post intubation, the patient became quite hypotensive. He received a total of 2.5 L of IV fluid and currently he is on normal saline running at the rate of 150 mL an hour. He is sedated with propofol at 25 mcg/kg/m. He is on a mechanical ventilator assist control mode with a rate of 28, tidal volume of 500, FiO2 of 50% with a PEEP of 5. An arterial line was inserted. He will also need a central line. 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 His chest x-ray immediately post aspiration showed some new infiltrates in his right upper lobe. NG tube has been removed. The patient has a orogastric tube in place for now. The patient is currently on IV Zosyn. The chest x-ray reveals new bilateral pulmonary infiltrates more so in the upper lobes. Lung bases are at this period. Orogastric tube is in the stomach. The white cell count is at 36.4, with a hemoglobin of 11.8 and a platelet count of 278. BUN is 46 with a creatinine of 1.08 and sodium levels of 137. Glucose at 128. Urine output is in order of 20 mL an hour. He is currently afebrile. 03/14/2023, the patient is being seen for a follow-up. Remains intubated on a mechanical ventilator. Earlier this morning, he was taken off the pressors and he is currently hemodynamically stable. At the same time, he had an issue with a SVT yesterday. He was given amiodarone and he was bolused and currently is on a maintenance of 0.5 mg/m. His cardiac rhythm is back into sinus rhythm. He remains on propofol which is running at 30 mcg/kg/m. He remains on a mechanical ventilator, assist control mode at the rate of 28, tidal volume of 500, FiO2 of 50% with a PEEP of 5. Blood gas shows improvement in oxygenation with a pH of 7.44 and a pO2 of 174 and a pCO2 of 30. White cell count is down to 12.8. Hemoglobin is at 10.4 and a platelet count is at 199. BUN is at 29 with a creatinine of 0.6 and the sodium levels is 137. Chest x-ray from yesterday shows limited bibasilar and right sided infiltrate. Orotracheal tube is in a good location. He has a left-sided triple-lumen catheter in place. Adequate urine output. Response to painful stimulation. His encephalopathic due to his underlying West Nile virus encephalitis. Pro-calcitonin level was at 4.25 indicating sepsis. The patient was aggressively resuscitated with IV fluids. IV fluids are currently running with normal saline at rate of 150 mL an hour. As mentioned, he is off pressors. Patient was seen and examined today on 03/16/2023, patient remains in the ICU, intubated and mechanically he is on assist control rate of 28 tidal volume 500 FiO2 of 50% and PEEP is 5. ABG showed a pO2 of 167 pCO2 of 33 pH of 7.44. Ches t x-ray continues to show evidence of minimal bibasilar infiltrates, right more so than left. His vent settings were changed I cut him down to a rate of 22 and I cut down the FiO2 to 40% instead of 50%, patient remains on propofol at 40 mcg/kg/m of the fluid 0.9 normal saline at 75 mL/h he remains nothing by mouth, nasogastric tube is in place, urine output seems to be excellent. Patient remains on Zosyn for presumptive aspiration pneumonia. Patient is scheduled to have a PEG tube placed today. Obviously the patient is not quite ready for weaning and extubation, however I do plan to consider start weaning trials in the next 24 hours. WBC count is 8.1 hemoglobin is 9.9 electrolytes are normal renal profile is normal Patient was reevaluated today on 03/17/2023, patient underwent uneventful placement of a PEG tube yesterday. However today he remains intubated and mechanically ventilated he is on assist control rate of 22 to volume 500 FiO2 40% and PEEP of 5 ABG showed a pO2 of 105 pCO2 34 pH 7.47. Patient remains on propofol at 10 mcg/kg/m IV fluid at 75 mL per hour and amiodarone 0.5 mg/m. Patient was also on diltiazem, and he is on Zosyn for antibiotics/aspiration pneumonia. CBC showed WBC count of 7.5 hemoglobin 9.7 electrodes are normal renal profile is normal chest x-ray showed bibasilar opacity/minimal infiltrate/atelectasis. Patient was reevaluated today on 03/18/2023, patient was successfully extubated yesterday. He also had a PEG tube placed the day before, and he is receiving nutritional support and medications via PEG tube. Patient is awake today, aler t, but nonetheless slow and intermittently confused. He is not in any distress, patient is on room air. He is receiving vital AF at 55 mL per hour via PEG tube, patient remains on Zosyn empirically for aspiration pneumonia. WBC count today is 9.3 hemoglobin is 9.9. Basic metabolic profile is normal and his liver enzymes are normal. I will transfer the patient out of the ICU to a medical floor, cardiac floor. Objective - Vital Signs Vital signs: Vital Signs Temp 98.3 F 03/18/23 08:00 Pulse 72 03/18/23 11:00 Resp 29 H 03/18/23 11:00 BP 118/66 03/18/23 11:00 Pulse Ox 94 L 03/18/23 11:00 FiO2 40 03/17/23 10:28 Intake & Output 03/17/23 03/18/23 03/18/23 18:59 06:59 18:59 Intake Total 5463.425 6230 605 Output Total 2990 1710 410 Balance -1494.725 -647 195 Weight 99.6 kg 89.8 kg Intake: IV 893 338 240 Invasive Line 10 10 30 10 Normal Saline Pressure 68 68 30 Bag Piperacillin-Tazobactam 3 200 100 .375 gm In Sodium Chloride 0.9% 100 ml @ 25 mls/hr IVPB Q8HR [facility] Rx# :[id number] Potassium Chloride 10 meq 200 In Water For Injection 1 100ml.bag @ 100 mls/hr IVPB Q1H [facility] Rx#: [id number] Sodium Chloride 0.9% 1, 375 000 ml @ 75 mls/hr IV . [id number] [facility] Rx#:[id number] Sodium Chloride 0.9% 500 40 240 100 ml 500 ml @ 20 mls/hr IV .Q24H [facility] Rx#:[id number] Intake, IV Titration 402.275 Amount Amiodarone 450 mg In 323.339 Dextrose 5% in Water 250 ml @ 0.5 MG/MIN 16.667 mls/hr IV .Q15H [facility] Rx#: [id number] propofoL 1,000 mg In 78.936 Empty Bag 1 bag @ 15 MCG/ KG/MIN 8.28 mls/hr IV . Q12H5M [facility] Rx#:[id number] Tube Feeding 110 605 275 Other 90 120 90 Output: Urine 2990 1710 410 Other: Voiding Method Indwelling Catheter Indwelling Catheter Indwelling Catheter ABP, PAP, CO, CI - Last Documented Arterial Blood Pressure 127/46 - Exam GENERAL EXAM: Revealed a 77-year-old white male on room air, not in distress. HEAD: Normocephalic and atraumatic EYES: Normal reaction of pupils, equal size. NOSE: Clear with pink turbinates. THROAT: No erythema or exudates. NECK: No masses, no JVD. CHEST: No chest wall deformity. LUNGS: Minimal crackles at the bases. CVS: S1 and S2 normal with no audible murmur, regular rhythm. No extra heart sounds ABDOMEN: Obese soft nontender no megaly no rebound no guarding, PEG tube is intact. SKIN: No rashes CENTRAL NERVOUS SYSTEM: Awake, follows instructions, intermittently confused otherwise no gross focal deficit EXTREMITIES: There is no peripheral edema, clubbing, or cyanosis. Peripheral pulses are intact. - Labs CBC & Chem 7: 03/18/23 04:53 03/18/23 04:53 Labs: Abnormal Lab Results - Last 24 Hours (Table) 03/18/23 03/18/23 03/18/23 Range/Units 04:53 04:53 06:05 RBC 2.94 L (4.30-5.90) m/uL Hgb 9.9 L (13.0-17.5) gm/dL Hct 28.7 L (39.0-53.0) % Sodium 136 L (137-145) mmol/L Glucose 119 H (74-99) mg/dL POC Glucose (mg/dL) 118 H (70-110) mg/dL Calcium 7.9 L (8.4-10.2) mg/dL Total Protein 5.6 L (6.3-8.2) g/dL Albumin 2.4 L (3.5-5.0) g/dL Microbiology - Last 24 Hours (Table) 03/14/23 10:45 Blood Culture - Preliminary Blood Assessment and Plan Assessment: Impression: Acute hypoxic respiratory failure mostly secondary to aspiration pneumonia, extubated on 03/17/2023 Acute aspiration pneumonia Acute West Nile virus encephalitis with mental status change on presentation Altered mental status, secondary to above Acute febrile illness and sepsis aspiration pneumonia. Acute rhabdomyolysis, resolved. Elevated troponins, possibly related to supply/demand mismatch Episodic episodes of atrial fibrillation/SVT, on amiodarone. Via PEG tube. Status post PEG tube placement, 03/16/20 Recommendation: Transfer patient out of the ICU to a cardiac floor. Continue antibiotics/Zosyn/for aspiration pneumonia Continue GI and DVT prophylaxis. Continue enteral feeding and nutritional support Continue physical therapy Patient will need to have placement and social media manager will be addressing placement issues on this patient and he may need long-term rehab we will continue to follow. Time with Patient: Less than 30
[2023-03-18 12:10] LABS: Glucose,Whole Blood 132 mg/dL (70-110)
--- NOTE | 2023-03-18 12:23 | P.PN ---
Subjective Principal diagnosis: Altered mental status This is 77-year-old white male with no significant past medical history came in and septic shock and questionable pneumonia. He was significant tachycardia with hypotension and was placed in ICU for observation. He continues to have significant mental status changes. Question febrile seizure element. Temperature is improved IV Tylenol has been administered. Appreciate multiple consultants input. Now extubated with PEG tube but significantly more alert. Objective - Vital Signs Vital signs: Vital Signs Temp 98.3 F 03/18/23 12:00 Pulse 72 03/18/23 12:00 Resp 25 H 03/18/23 12:00 BP 114/69 03/18/23 12:00 Pulse Ox 95 03/18/23 12:00 FiO2 40 03/17/23 10:28 Intake & Output 03/17/23 03/18/23 03/18/23 18:59 06:59 18:59 Intake Total 5314.209 1674 686 Output Total 2990 1710 490 Balance -1494.725 -647 196 Weight 99.6 kg 89.8 kg Intake: IV 893 338 266 Invasive Line 10 10 30 10 Normal Saline Pressure 68 68 36 Bag Piperacillin-Tazobactam 3 200 100 .375 gm In Sodium Chloride 0.9% 100 ml @ 25 mls/hr IVPB Q8HR [facility] Rx# :[id number] Potassium Chloride 10 meq 200 In Water For Injection 1 100ml.bag @ 100 mls/hr IVPB Q1H [facility] Rx#: [id number] Sodium Chloride 0.9% 1, 375 000 ml @ 75 mls/hr IV . [id number] [facility] Rx#:[id number] Sodium Chloride 0.9% 500 40 240 120 ml 500 ml @ 20 mls/hr IV .Q24H [facility] Rx#:[id number] Intake, IV Titration 402.275 Amount Amiodarone 450 mg In 323.339 Dextrose 5% in Water 250 ml @ 0.5 MG/MIN 16.667 mls/hr IV .Q15H [facility] Rx#: [id number] propofoL 1,000 mg In 78.936 Empty Bag 1 bag @ 15 MCG/ KG/MIN 8.28 mls/hr IV . Q12H5M [facility] Rx#:[id number] Tube Feeding 110 605 330 Other 90 120 90 Output: Urine 2990 1710 490 Other: Voiding Method Indwelling Catheter Indwelling Catheter Indwelling Catheter ABP, PAP, CO, CI - Last Documented Arterial Blood Pressure 119/43 - Constitutional General appearance: Present: average body habitus - EENT Eyes: Absent: abnormal pupil - Neck Neck: Absent: lymphadenopathy - Respiratory Respiratory: bilateral: diminished - Cardiovascular Rhythm: regular Heart sounds: normal: S1, S2 Abnormal Heart Sounds: Absent: S3 Gallop - Gastrointestinal General gastrointestinal: Present: soft. Absent: tenderness - Psychiatric Psychiatric: Present: A&O x's 3 - Labs CBC & Chem 7: 03/18/23 04:53 03/18/23 04:53 Labs: Abnormal Lab Results - Last 24 Hours (Table) 03/18/23 03/18/23 03/18/23 Range/Units 04:53 04:53 06:05 RBC 2.94 L (4.30-5.90) m/uL Hgb 9.9 L (13.0-17.5) gm/dL Hct 28.7 L (39.0-53.0) % Sodium 136 L (137-145) mmol/L Glucose 119 H (74-99) mg/dL POC Glucose (mg/dL) 118 H (70-110) mg/dL Calcium 7.9 L (8.4-10.2) mg/dL Total Protein 5.6 L (6.3-8.2) g/dL Albumin 2.4 L (3.5-5.0) g/dL 03/18/23 Range/Units 12:09 RBC (4.30-5.90) m/uL Hgb (13.0-17.5) gm/dL Hct (39.0-53.0) % Sodium (137-145) mmol/L Glucose (74-99) mg/dL POC Glucose (mg/dL) 132 H (70-110) mg/dL Calcium (8.4-10.2) mg/dL Total Protein (6.3-8.2) g/dL Albumin (3.5-5.0) g/dL Microbiology - Last 24 Hours (Table) 03/14/23 10:45 Blood Culture - Preliminary Blood Assessment and Plan (1) Altered mental status Current Visit: Yes Status: Acute Code(s): R41.82 - ALTERED MENTAL STATUS, UNSPECIFIED SNOMED Code(s): 391020231 (2) Pneumonia Current Visit: Yes Status: Acute Code(s): J18.9 - PNEUMONIA, UNSPECIFIED ORGANISM SNOMED Code(s): 154960279 (3) Septic shock Current Visit: Yes Status: Acute Code(s): A41.9 - SEPSIS, UNSPECIFIED ORGANISM; R65.21 - SEVERE SEPSIS WITH SEPTIC SHOCK SNOMED Code(s): 12565041 (4) West Nile fever Current Visit: Yes Status: Acute Code(s): A92.30 - WEST NILE VIRUS INFECTION, UNSPECIFIED SNOMED Code(s): 101985281 Plan: Doing well after aspiration. Not. Now with PEG tube. Transfer to stepdown unit. Prognosis is improving significantly. Encephalitis is starting to resolve. Check CBC and CMP in a.m.
--- NOTE | 2023-03-18 14:50 | P.PN ---
Subjective Progress Note Date: 03/18/23 CHIEF COMPLAINT: Altered mental status HISTORY OF PRESENT ILLNESS: Patient postop day #2 status post PEG tube placement. Patient has been started on tube feeds. Tube feeds currently at 55 mL per hour. Patient extubated yesterday PHYSICAL EXAM: VITAL SIGNS: Reviewed. GENERAL: no acute distress. ABDOMEN: Soft. Nondistended. PEG tube site clean dry and intact NEUROLOGIC: Intubated ASSESSMENT: 1. Dysphagia 2. Mild protein calorie malnutrition 3. Failed swallow eval 4. West Nile virus encephalitis PLAN: -Dietitian to titrate tube feeds -Continue supportive care Physician [employer] note has been reviewed by physician. Signing provider agrees with the documented findings, assessment, and plan of care. Objective - Vital Signs Vital signs: Vital Signs Temp 98.3 F 03/18/23 12:00 Pulse 72 03/18/23 12:00 Resp 25 H 03/18/23 12:00 BP 114/69 03/18/23 12:00 Pulse Ox 95 03/18/23 12:00 FiO2 40 03/17/23 10:28 Intake & Output 03/17/23 03/18/23 03/18/23 18:59 06:59 18:59 Intake Total 5483.160 8872 696 Output Total 2990 1710 490 Balance -1494.725 -647 206 Weight 99.6 kg 89.8 kg Intake: IV 893 338 276 Invasive Line 10 10 30 20 Normal Saline Pressure 68 68 36 Bag Piperacillin-Tazobactam 3 200 100 .375 gm In Sodium Chloride 0.9% 100 ml @ 25 mls/hr IVPB Q8HR [facility] Rx# :[id number] Potassium Chloride 10 meq 200 In Water For Injection 1 100ml.bag @ 100 mls/hr IVPB Q1H [facility] Rx#: [id number] Sodium Chloride 0.9% 1, 375 000 ml @ 75 mls/hr IV . [id number] [facility] Rx#:[id number] Sodium Chloride 0.9% 500 40 240 120 ml 500 ml @ 20 mls/hr IV .Q24H [facility] Rx#:[id number] Intake, IV Titration 402.275 Amount Amiodarone 450 mg In 323.339 Dextrose 5% in Water 250 ml @ 0.5 MG/MIN 16.667 mls/hr IV .Q15H [facility] Rx#: [id number] propofoL 1,000 mg In 78.936 Empty Bag 1 bag @ 15 MCG/ KG/MIN 8.28 mls/hr IV . Q12H5M [facility] Rx#:[id number] Tube Feeding 110 605 330 Other 90 120 90 Output: Urine 2990 1710 490 Other: Voiding Method Indwelling Catheter Indwelling Catheter Indwelling Catheter ABP, PAP, CO, CI - Last Documented Arterial Blood Pressure 119/43 - Labs CBC & Chem 7: 03/18/23 04:53 03/18/23 04:53 Labs: Abnormal Lab Results - Last 24 Hours (Table) 03/18/23 03/18/23 03/18/23 Range/Units 04:53 04:53 06:05 RBC 2.94 L (4.30-5.90) m/uL Hgb 9.9 L (13.0-17.5) gm/dL Hct 28.7 L (39.0-53.0) % Sodium 136 L (137-145) mmol/L Glucose 119 H (74-99) mg/dL POC Glucose (mg/dL) 118 H (70-110) mg/dL Calcium 7.9 L (8.4-10.2) mg/dL Total Protein 5.6 L (6.3-8.2) g/dL Albumin 2.4 L (3.5-5.0) g/dL 03/18/23 Range/Units 12:09 RBC (4.30-5.90) m/uL Hgb (13.0-17.5) gm/dL Hct (39.0-53.0) % Sodium (137-145) mmol/L Glucose (74-99) mg/dL POC Glucose (mg/dL) 132 H (70-110) mg/dL Calcium (8.4-10.2) mg/dL Total Protein (6.3-8.2) g/dL Albumin (3.5-5.0) g/dL Microbiology - Last 24 Hours (Table) 03/14/23 10:45 Blood Culture - Preliminary Blood
[2023-03-18] MEDS: METOPROLOL TARTRATE 50 MG TAB PO SCH (15:58)
--- NOTE | 2023-03-18 17:13 | P.PN ---
Subjective Progress Note Date: 03/18/23 Principal diagnosis: Fever Patient is a 77-year-old male presenting to the hospital y after the patient was found to be unresponsive by the , patient has been febrile initial testing negative including LP which was only mildly elevated protein. Patient did have a episode of vomiting followed by worsening of his respiratory status initially on BiPAP subsequently ended up getting intubated carbon dioxide operator of 03/14/2023 On today's evaluation that is 03/18/2023, the patient continues to be afebrile, the patient is breathing comfortably on 2 L nasal canal oxygen patient is more awake and alert today and did answer some simple questions appropriately he is breathing comfortably denies any chest pain no vomiting or diarrhea has been reported patient white count is 9.3, creatinine 0.70 Objective - Vital Signs Vital signs: Vital Signs Temp 98.3 F 03/18/23 08:00 Pulse 74 03/18/23 09:00 Resp 22 03/18/23 09:00 BP 121/64 03/18/23 09:00 Pulse Ox 96 03/18/23 09:00 FiO2 40 03/17/23 10:28 Intake & Output 03/17/23 03/18/23 03/18/23 18:59 06:59 18:59 Intake Total 7838.717 3462 443 Output Total 2990 1710 245 Balance -1494.725 -647 198 Weight 99.6 kg 89.8 kg Intake: IV 893 338 188 Invasive Line 10 10 30 10 Normal Saline Pressure 68 68 18 Bag Piperacillin-Tazobactam 3 200 100 .375 gm In Sodium Chloride 0.9% 100 ml @ 25 mls/hr IVPB Q8HR [facility] Rx# :[id number] Potassium Chloride 10 meq 200 In Water For Injection 1 100ml.bag @ 100 mls/hr IVPB Q1H [facility] Rx#: [id number] Sodium Chloride 0.9% 1, 375 000 ml @ 75 mls/hr IV . [id number] [facility] Rx#:[id number] Sodium Chloride 0.9% 500 40 240 60 ml 500 ml @ 20 mls/hr IV .Q24H [facility] Rx#:[id number] Intake, IV Titration 402.275 Amount Amiodarone 450 mg In 323.339 Dextrose 5% in Water 250 ml @ 0.5 MG/MIN 16.667 mls/hr IV .Q15H [facility] Rx#: [id number] propofoL 1,000 mg In 78.936 Empty Bag 1 bag @ 15 MCG/ KG/MIN 8.28 mls/hr IV . Q12H5M [facility] Rx#:[id number] Tube Feeding 110 605 165 Other 90 120 90 Output: Urine 2990 1710 245 Other: Voiding Method Indwelling Catheter Indwelling Catheter ABP, PAP, CO, CI - Last Documented Arterial Blood Pressure 124/41 - Exam GENERAL DESCRIPTION: An elderly male lying in bed in no distress RESPIRATORY SYSTEM: Unlabored breathing , coarse breath sounds bilaterally HEART: S1 S2 regular rate and rhythm , ABDOMEN: Soft , no tenderness EXTREMITIES: No edema feet - Labs CBC & Chem 7: 03/18/23 04:53 03/18/23 04:53 Labs: Abnormal Lab Results - Last 24 Hours (Table) 03/17/23 03/18/23 03/18/23 Range/Units 10: 04:53 04:53 RBC 2.94 L (4.30-5.90) m/uL Hgb 9.9 L (13.0-17.5) gm/dL Hct 28.7 L (39.0-53.0) % ABG pO2 137 H (83-108) mmHg ABG Total CO2 26 H (19-24) mmol/L ABG O2 Saturation 99.1 H (94-97) % Sodium 136 L (137-145) mmol/L Glucose 119 H (74-99) mg/dL POC Glucose (mg/dL) (70-110) mg/dL Calcium 7.9 L (8.4-10.2) mg/dL Total Protein 5.6 L (6.3-8.2) g/dL Albumin 2.4 L (3.5-5.0) g/dL 03/18/23 Range/Units 06:05 RBC (4.30-5.90) m/uL Hgb (13.0-17.5) gm/dL Hct (39.0-53.0) % ABG pO2 (83-108) mmHg ABG Total CO2 (19-24) mmol/L ABG O2 Saturation (94-97) % Sodium (137-145) mmol/L Glucose (74-99) mg/dL POC Glucose (mg/dL) 118 H (70-110) mg/dL Calcium (8.4-10.2) mg/dL Total Protein (6.3-8.2) g/dL Albumin (3.5-5.0) g/dL Microbiology - Last 24 Hours (Table) 03/14/23 10:45 Blood Culture - Preliminary Blood Assessment and Plan (1) Fever Current Visit: Yes Status: Acute Code(s): R50.9 - FEVER, UNSPECIFIED SNOMED Code(s): 091857162 (2) Pneumonia Current Visit: Yes Status: Acute Code(s): J18.9 - PNEUMONIA, UNSPECIFIED ORGANISM SNOMED Code(s): 096170561 (3) West Nile Virus infection Current Visit: Yes Status: Acute Code(s): A92.30 - WEST NILE VIRUS INFECTION, UNSPECIFIED SNOMED Code(s): 596318979 Plan: 1patient with encephalitis/meningitis ,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, the treatment is mostly supportive, there is some role for immunoglobulin infusion which the patient has already received 2-episode of vomiting aspiration and acute respiratory failure requiring intubation--, patient with likely aspiration pneumonia, blood and sputum culture currently pending patient white count has normalized 3-patient is slowly clinically improving the patient is afebrile white count has normalized, patient to continue with the Zosyn and monitor clinical course closely Dictation was produced using [employer] dictation software. please excuse any grammatical, word or spelling errors. Time with Patient: Less than 30
[2023-03-18] MEDS: SODIUM CHLORIDE 0.9% 500 ML 500 ML IV SCH (18:13)
[2023-03-18 19:12] LABS: Glucose,Whole Blood 128 mg/dL (70-110)
[2023-03-19 00:05] LABS: Glucose,Whole Blood 126 mg/dL (70-110)
[2023-03-19] MEDS: PIPERACILLIN-TAZOBACTAM 3.375 GM in SODIUM CHLORIDE 0.9% 100 ML IVPB SCH ×3 (00:30→16:34)
[2023-03-19 06:11] LABS: HCT 30.2 % (39.0-53.0); HGB 10.6 gm/dL (13.0-17.5); MCH 34.5 pg (25.0-35.0); MCV 98.4 fL (80.0-100.0); Mean Platelet Volume 8.4; Platelet Count 182 k/uL (150-450); RBC 3.07 m/uL (4.30-5.90); RDW 13.7 % (11.5-15.5)
[2023-03-19 06:38] LABS: ALT 51 U/L (4-49); AST 42 U/L (17-59); African American GFR (CKD) >90 (>60 ml/min/1.73 sqM); Albumin 2.7 g/dL (3.5-5.0); Alkaline Phosphatase 59 U/L (38-126); Anion Gap 9 mmol/L; Blood Urea Nitrogen 18 mg/dL (9-20); Calcium 8.2 mg/dL (8.4-10.2); Carbon Dioxide 23 mmol/L (22-30); Chloride 105 mmol/L (98-107); Glucose 105 mg/dL (74-99); Non-African American GFR(CKD) >90 (>60 ml/min/1.73 sqM); Potassium 4.1 mmol/L (3.5-5.1); Sodium 137 mmol/L (137-145); Total Bilirubin 0.8 mg/dL (0.2-1.3); Total Protein 6.2 g/dL (6.3-8.2)
[2023-03-19] MEDS: IPRATROPIUM-ALBUTEROL 3 ML NEB INHALATION SCH ×3 (08:10→19:41)
--- NOTE | 2023-03-19 08:34 | P.PN ---
Subjective Progress Note Date: 03/19/23 Principal diagnosis: Altered mental status This is a 77-year-old male who presented to the ER with concerns of altered mental status. His had found him on the ground prior to coming to the ER. He was placed in ICU, has had tachycardia with hypotension. He also continues t o have intermittent fevers. Workup for bacterial meningitis was negative. EEG was negative for seizure activity. Further workup still in progress. Patient still has a white count today. He is seen laying in bed in the ICU this morning, in no acute distress. 03/02/2023 Patient is seen and evaluated sitting up in bed in ICU. Over the weekend patient developed atrial fibrillation with RVR. He remains on a heparin drip. Patient also began to be more alert over the weekend, responds to verbal commands, does have garbled speech. Neurology has ordered an MRI of the brain. 03/05/2023 Patient is seen and evaluated laying in bed in ICU. He continues to be not very arousable, not alert today. Speech remains garbled. Labs have come back showing West Nile virus, infectious disease already consulted, await their recommendations. 03/09/2023 Patient is seen and evaluated on step-down unit. He did receive 3 doses of IVIG. NG tube and feeding still in place. Speech still garbled, he is arousable though and able to follow simple commands 03/10/2023 Patient is seen and evaluated on step-down unit. White count elevated today, no fever. Chest XR pending. Patient looks more restless in the bed today. 03/12/2023 Patient seen and evaluated laying in bed this morning. He is more alert today, speech is still garbled. His white count is trending down. 03/16/2023 Patient aspirated over the weekend and ended up back in ICU. He remains on mechanical ventilation. Plan is for peg-tube today. 03/17/2023 Patient had PEG tube placed yesterday, tolerated procedure well. Plan for today is to trial weaning off mechanical ventilation. He was arousable during my exam today, opening his eyes. 03/19/2023 Patient seen and evaluated laying in bed in the ICU. He is off mechanical venti lation. He is awake and alert today. He is able to tell me his name and that he is in the hospital. Speech still somewhat garbled He is tolerating tube feeds through PEG tube. Objective - Vital Signs Vital signs: Vital Signs Temp 98.1 F 03/18/23 20:00 Pulse 88 03/19/23 08:17 Resp 19 03/19/23 08:17 BP 131/75 03/19/23 06:00 Pulse Ox 93 L 03/19/23 08:10 FiO2 40 03/17/23 10:28 Intake & Output 03/18/23 03/19/23 03/19/23 18:59 06:59 18:59 Intake Total 1264 1285 Output Total 1075 1195 Balance 189 90 Weight 89.8 kg 99.4 kg Intake: IV 424 350 Invasive Line 10 30 30 Normal Saline Pressure 54 0 Bag Piperacillin-Tazobactam 3 100 100 .375 gm In Sodium Chloride 0.9% 100 ml @ 25 mls/hr IVPB Q8HR [facility] Rx# :[id number] Sodium Chloride 0.9% 500 240 220 ml 500 ml @ 20 mls/hr IV .Q24H [facility] Rx#:[id number] Tube Feeding 750 935 Other 90 Output: Urine 1075 1195 Other: Voiding Method Indwelling Catheter Indwelling Catheter ABP, PAP, CO, CI - Last Documented Arterial Blood Pressure 119/43 - Constitutional General appearance: Present: cooperative, no acute distress - EENT Eyes: Present: PERRLA - Neck Neck: Present: normal ROM. Absent: lymphadenopathy, rigidity - Respiratory Respiratory: bilateral: CTA - Cardiovascular Rhythm: regular Heart sounds: normal: S1, S2 - Gastrointestinal General gastrointestinal: Present: soft. Absent: tenderness - Integumentary Integumentary: Present: normal, normal turgor - Psychiatric Psychiatric Comment(s): Alert to person and place - Labs CBC & Chem 7: 03/19/23 05:07 03/19/23 05:07 Labs: Abnormal Lab Results - Last 24 Hours (Table) 03/18/23 03/18/23 03/19/23 Range/Units 12:09 19:10 00:03 RBC (4.30-5.90) m/uL Hgb (13.0-17.5) gm/dL Hct (39.0-53.0) % Creatinine (0.66-1.25) mg/dL Glucose (74-99) mg/dL POC Glucose (mg/dL) 132 H 128 H 126 H (70-110) mg/dL Calcium (8.4-10.2) mg/dL ALT (4-49) U/L Total Protein (6.3-8.2) g/dL Albumin (3.5-5.0) g/dL 03/19/23 03/19/23 Range/Units 05:07 05:07 RBC 3.07 L (4.30-5.90) m/uL Hgb 10.6 L (13.0-17.5) gm/dL Hct 30.2 L (39.0-53.0) % Creatinine 0.61 L (0.66-1.25) mg/dL Glucose 105 H (74-99) mg/dL POC Glucose (mg/dL) (70-110) mg/dL Calcium 8.2 L (8.4-10.2) mg/dL ALT 51 H (4-49) U/L Total Protein 6.2 L (6.3-8.2) g/dL Albumin 2.7 L (3.5-5.0) g/dL Assessment and Plan (1) Altered mental status Current Visit: Yes Status: Acute Code(s): R41.82 - ALTERED MENTAL STATUS, UNSPECIFIED SNOMED Code(s): 519764975 (2) Pneumonia Current Visit: Yes Status: Acute Code(s): J18.9 - PNEUMONIA, UNSPECIFIED ORGANISM SNOMED Code(s): 365128342 (3) Septic shock Current Visit: Yes Status: Acute Code(s): A41.9 - SEPSIS, UNSPECIFIED ORGANISM; R65.21 - SEVERE SEPSIS WITH SEPTIC SHOCK SNOMED Code(s): 46763592 (4) Atrial fibrillation Current Visit: Yes Status: Acute Code(s): I48.91 - UNSPECIFIED ATRIAL FIBRILLATION SNOMED Code(s): 17304970 (5) West Nile Virus infection Current Visit: Yes Status: Acute Code(s): A92.30 - WEST NILE VIRUS INFECTION, UNSPECIFIED SNOMED Code(s): 039540021 Plan: CBC and CMP in the morning. Appreciate multiple consultants. Patient seen and evaluated by nurse practitioner, physician in agreement with plan
[2023-03-19] MEDS: APIXABAN 5 MG TAB PO SCH ×2 (11:10→20:58)
[2023-03-19] MEDS: FLUCONAZOLE 100 MG TAB PO SCH (11:10)
[2023-03-19] MEDS: LACTOBACILLUS ACIDOPHILUS/PECT 1 EACH CAPSULE PO SCH ×3 (11:10→20:58)
[2023-03-19] MEDS: ASCORBIC ACID 500 MG TAB PO SCH (11:10)
[2023-03-19] MEDS: CHOLECALCIFEROL 125 MCG (5000 IU) TABLET PO SCH (11:10)
[2023-03-19] MEDS: PANTOPRAZOLE 40 MG/10 ML VIAL IVP SCH (11:10)
[2023-03-19] MEDS: ZINC SULFATE 220 MG CAP PO SCH (11:10)
[2023-03-19] MEDS: AMIODARONE 200 MG TAB PO SCH ×2 (11:10→20:58)
[2023-03-19] MEDS: polyethylene glycoL 3350 17 GM POWD.PACK PO SCH (11:11)
[2023-03-19 11:54] LABS: Glucose,Whole Blood 116 mg/dL (70-110)
--- NOTE | 2023-03-19 11:54 | P.PN ---
Progress Note - Text Progress Note Date: 03/19/23 Patient remains in the ICU. On exam vital signs appear stable. PEG tube site is clean. Patient is at tube feed goal. He'll continue receive supportive care.
--- NOTE | 2023-03-19 12:10 | P.PN ---
Subjective Progress Note Date: 03/19/23 Principal diagnosis: Sepsis and mental status change, West Nile virus encephalitis, aspiration pneumonia I am seeing this patient in new consultation today 02/24/2023 after the patient presented to the ER yesterday evening with concerns of altered mental status. Patient is a 77-year-old white male with a limited past medical history. Apparently, the patient's found him down on the ground early yesterday morning confused. His last known well time was the night prior. Nonenhanced brain CT on arrival shows age-related atrophic and chronic small vessel ischemia without any obvious acute cranial process. Initial chest x-ray on arrival showed fullness around the right hilum likely related patient rotation. Underlying infiltrate or mass not excluded. CBC shows leukocytosis with a WBC count of 16, hemoglobin 13.5, hematocrit 39.1, platelets 109,000. BMP shows sod ium 136, potassium 3.7, chloride 110, serum bicarb 17, BUN 36, creatinine 1.22, glucose 102. LFTs are mildly elevated. Troponins are 1.66 and 1.9. Urinalysis not particularly concerning for UTI. Negative for influenza, RSV, COVID-19. Patient was originally admitted to the floor, and was transferred to the ICU last night for tachycardia and hypotension. Yesterday, he was given a total of 2.5 L normal saline bolus. On my evaluation, the patient is lying in bed, extremities are rigid, he is febrile with a t-max of 103 F. He is on 2 L/m nasal cannula, oxygenating around 94%. He is disoriented and unable to provide any meaningful information. He mostly mumbles. I did speak to the patient's daughter, who denies any recent sinus, ear, or pulmonary infections. I am concerned for possible encephalitis or meningitis. I spoke with neurology last night, and updated them on the patient. There is an EEG pending for the morning. Patient is empirically covered with combination of ampicillin, vancomycin, and Rocephin. Infectious disease consult was also placed. Heart rhythm is currently normal sinus on bedside monitor. Blood pressure is normotensive. Normal saline is infusing at 130 ML's per hour. No need for vasopressors at this time. Patient will need a thorough neurological workup. He is being monitored in the intensive care unit in the meantime. On 03/13/2023, no change in neurologic functions and the patient remains in the same neurologic status. He continues to receive enteral feeding for nutritional support via an NG tube. The patient will need a PEG tube and this has been tentatively scheduled to be done on 03/16/2023. Anticoagulation will placed on hold for now. No other complaints. No signs of any respiratory distress. The blood work shows a BUN of 36 with a creatinine of 0.7. The white cell count 15.4 with a hemoglobin of 13 and a platelet count of 218. Blood sugars at 219. The patient will be having a PEG tube insertion for enteral feeding and nu tritional support. 03/14/2023, the patient is being seen for a follow-up in the intensive care unit . Events from overnight was noted. The patient had massive aspiration. Apparently the NG tube got misplaced and the patient was having enteral feeding into his lungs. He became acutely short of breath, he went into respiratory distress. He was placed on 100% nonrebreather facemask. He was tried on a BiPAP which she failed and ultimately had to be intubated and placed on a mechanical ventilator. Post intubation, the patient became quite hypotensive. He received a total of 2.5 L of IV fluid and currently he is on normal saline running at the rate of 150 mL an hour. He is sedated with propofol at 25 mcg/kg/m. He is on a mechanical ventilator assist control mode with a rate of 28, tidal volume of 500, FiO2 of 50% with a PEEP of 5. An arterial line was inserted. He will also need a central line. 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 His chest x-ray immediately post aspiration showed some new infiltrates in his right upper lobe. NG tube has been removed. The patient has a orogastric tube in place for now. The patient is currently on IV Zosyn. The chest x-ray reveals new bilateral pulmonary infiltrates more so in the upper lobes. Lung bases are at this period. Orogastric tube is in the stomach. The white cell count is at 36.4, with a hemoglobin of 11.8 and a platelet count of 278. BUN is 46 with a creatinine of 1.08 and sodium levels of 137. Glucose at 128. Urine output is in order of 20 mL an hour. He is currently afebrile. 03/14/2023, the patient is being seen for a follow-up. Remains intubated on a mechanical ventilator. Earlier this morning, he was taken off the pressors and he is currently hemodynamically stable. At the same time, he had an issue with a SVT yesterday. He was given amiodarone and he was bolused and currently is on a maintenance of 0.5 mg/m. His cardiac rhythm is back into sinus rhythm. He remains on propofol which is running at 30 mcg/kg/m. He remains on a mechanical ventilator, assist control mode at the rate of 28, tidal volume of 500, FiO2 of 50% with a PEEP of 5. Blood gas shows improvement in oxygenation with a pH of 7.44 and a pO2 of 174 and a pCO2 of 30. White cell count is down to 12.8. Hemoglobin is at 10.4 and a platelet count is at 199. BUN is at 29 with a creatinine of 0.6 and the sodium levels is 137. Chest x-ray from yesterday shows limited bibasilar and right sided infiltrate. Orotracheal tube is in a good location. He has a left-sided triple-lumen catheter in place. Adequate urine output. Response to painful stimulation. His encephalopathic due to his underlying West Nile virus encephalitis. Pro-calcitonin level was at 4.25 indicating sepsis. The patient was aggressively resuscitated with IV fluids. IV fluids are currently running with normal saline at rate of 150 mL an hour. As mentioned, he is off pressors. Patient was seen and examined today on 03/16/2023, patient remains in the ICU, intubated and mechanically he is on assist control rate of 28 tidal volume 500 FiO2 of 50% and PEEP is 5. ABG showed a pO2 of 167 pCO2 of 33 pH of 7.44. Ches t x-ray continues to show evidence of minimal bibasilar infiltrates, right more so than left. His vent settings were changed I cut him down to a rate of 22 and I cut down the FiO2 to 40% instead of 50%, patient remains on propofol at 40 mcg/kg/m of the fluid 0.9 normal saline at 75 mL/h he remains nothing by mouth, nasogastric tube is in place, urine output seems to be excellent. Patient remains on Zosyn for presumptive aspiration pneumonia. Patient is scheduled to have a PEG tube placed today. Obviously the patient is not quite ready for weaning and extubation, however I do plan to consider start weaning trials in the next 24 hours. WBC count is 8.1 hemoglobin is 9.9 electrolytes are normal renal profile is normal Patient was reevaluated today on 03/17/2023, patient underwent uneventful placement of a PEG tube yesterday. However today he remains intubated and mechanically ventilated he is on assist control rate of 22 to volume 500 FiO2 40% and PEEP of 5 ABG showed a pO2 of 105 pCO2 34 pH 7.47. Patient remains on propofol at 10 mcg/kg/m IV fluid at 75 mL per hour and amiodarone 0.5 mg/m. Patient was also on diltiazem, and he is on Zosyn for antibiotics/aspiration pneumonia. CBC showed WBC count of 7.5 hemoglobin 9.7 electrodes are normal renal profile is normal chest x-ray showed bibasilar opacity/minimal infiltrate/atelectasis. Patient was reevaluated today on 03/18/2023, patient was successfully extubated yesterday. He also had a PEG tube placed the day before, and he is receiving nutritional support and medications via PEG tube. Patient is awake today, aler t, but nonetheless slow and intermittently confused. He is not in any distress, patient is on room air. He is receiving vital AF at 55 mL per hour via PEG tube, patient remains on Zosyn empirically for aspiration pneumonia. WBC count today is 9.3 hemoglobin is 9.9. Basic metabolic profile is normal and his liver enzymes are normal. I will transfer the patient out of the ICU to a medical floor, cardiac floor. Reevaluated today on 03/19/2023, patient remains in the ICU as an overflow. He is on room air, arousable, follows instructions, speech remains garbled and the patient is oriented to place and to time. He knew the year and he knew where he was, speech again is garbled his IV fluids at KVO he is tolerating feeding via PEG tube. And we are still in the process of getting the patient to possibly go to [facility] rehab. Apparently the patient sustained some encephalopathy which is improving from his West Nile virus encephalitis. WBC count is 10 hemoglobin is 10.6 basic metabolic profile is normal and renal profile is normal Objective - Vital Signs Vital signs: Vital Signs Temp 98.1 F 03/18/23 20:00 Pulse 88 03/19/23 08:17 Resp 19 03/19/23 08:17 BP 131/75 03/19/23 06:00 Pulse Ox 93 L 03/19/23 08:10 FiO2 40 03/17/23 10:28 Intake & Output 03/18/23 03/19/23 03/19/23 18:59 06:59 18:59 Intake Total 1264 1285 Output Total 1075 1195 Balance 189 90 Weight 89.8 kg 99.4 kg Intake: IV 424 350 Invasive Line 10 30 30 Normal Saline Pressure 54 0 Bag Piperacillin-Tazobactam 3 100 100 .375 gm In Sodium Chloride 0.9% 100 ml @ 25 mls/hr IVPB Q8HR [facility] Rx# :[id number] Sodium Chloride 0.9% 500 240 220 ml 500 ml @ 20 mls/hr IV .Q24H [facility] Rx#:[id number] Tube Feeding 750 935 Other 90 Output: Urine 1075 1195 Other: Voiding Method Indwelling Catheter Indwelling Catheter ABP, PAP, CO, CI - Last Documented Arterial Blood Pressure 119/43 - Exam GENERAL EXAM: Revealed a 77-year-old white male on room air, not in distress. On room air HEAD: Normocephalic and atraumatic EYES: Normal reaction of pupils, equal size. NOSE: Clear with pink turbinates. THROAT: No erythema or exudates. NECK: No masses, no JVD. CHEST: No chest wall deformity. LUNGS: Minimal crackles at the bases. CVS: S1 and S2 normal with no audible murmur, regular rhythm. No extra heart sounds ABDOMEN: Obese soft nontender no megaly no rebound no guarding, PEG tube is i ntact. SKIN: No rashes CENTRAL NERVOUS SYSTEM: Awake, follows instructions, speech is garbled EXTREMITIES: There is no peripheral edema, clubbing, or cyanosis. Peripheral pulses are intact. - Labs CBC & Chem 7: 03/19/23 05:07 03/19/23 05:07 Labs: Abnormal Lab Results - Last 24 Hours (Table) 03/18/23 03/18/23 03/19/23 Range/Units 12:09 19:10 00:03 RBC (4.30-5.90) m/uL Hgb (13.0-17.5) gm/dL Hct (39.0-53.0) % Creatinine (0.66-1.25) mg/dL Glucose (74-99) mg/dL POC Glucose (mg/dL) 132 H 128 H 126 H (70-110) mg/dL Calcium (8.4-10.2) mg/dL ALT (4-49) U/L Total Protein (6.3-8.2) g/dL Albumin (3.5-5.0) g/dL 03/19/23 03/19/23 03/19/23 Range/Units 05:07 05:07 11:52 RBC 3.07 L (4.30-5.90) m/uL Hgb 10.6 L (13.0-17.5) gm/dL Hct 30.2 L (39.0-53.0) % Creatinine 0.61 L (0.66-1.25) mg/dL Glucose 105 H (74-99) mg/dL POC Glucose (mg/dL) 116 H (70-110) mg/dL Calcium 8.2 L (8.4-10.2) mg/dL ALT 51 H (4-49) U/L Total Protein 6.2 L (6.3-8.2) g/dL Albumin 2.7 L (3.5-5.0) g/dL Assessment and Plan Assessment: Impression: Acute hypoxic respiratory failure mostly secondary to aspiration pneumonia, extubated on 03/17/2023 Acute aspiration pneumonia Acute West Nile virus encephalitis with mental status change on presentation Altered mental status, secondary to above Acute febrile illness and sepsis aspiration pneumonia. Acute rhabdomyolysis, resolved. Elevated troponins, possibly related to supply/demand mismatch Episodic episodes of atrial fibrillation/SVT, on amiodarone. Via PEG tube. Status post PEG tube placement, 03/16/20 Recommendation: Consider transfer plans to ECF Continue antibiotics/Zosyn/for aspiration pneumonia until the patient is ready for discharge may not actually require outpatient antibiotics, Continue GI and DVT prophylaxis. Continue enteral feeding and nutritional support Continue physical therapy we will continue to follow. Time with Patient: Less than 30
--- NOTE | 2023-03-19 15:27 | P.PN ---
Subjective Progress Note Date: 03/19/23 Principal diagnosis: Fever Patient is a 77-year-old male presenting to the hospital y after the patient was found to be unresponsive by the , patient has been febrile initial testing negative including LP which was only mildly elevated protein. 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 On today's evaluation that is 03/19/2023, the patient remains to be afebrile, the patient is breathing comfortably on room air, the patient is more awake and alert and did answer questions appropriately denies any chest pain occasional cough but no vomiting or diarrhea has been reported patient white count is 10.0, creatinine 0.61 Objective - Vital Signs Vital signs: Vital Signs Temp 98.4 F 03/19/23 12:00 Pulse 75 03/19/23 13:00 Resp 26 H 03/19/23 13:00 BP 144/85 03/19/23 13:00 Pulse Ox 93 L 03/19/23 13:00 FiO2 40 03/17/23 10:28 Intake & Output 03/18/23 03/19/23 03/19/23 18:59 06:59 18:59 Intake Total 1264 1370 745 Output Total 1075 1195 700 Balance 189 175 45 Weight 89.8 kg 99.4 kg Intake: IV 424 350 150 Invasive Line 10 30 30 10 Normal Saline Pressure 54 0 Bag Piperacillin-Tazobactam 3 100 100 .375 gm In Sodium Chloride 0.9% 100 ml @ 25 mls/hr IVPB Q8HR [facility] Rx# :[id number] Sodium Chloride 0.9% 500 240 220 140 ml 500 ml @ 20 mls/hr IV .Q24H [facility] Rx#:[id number] Tube Feeding 750 1020 595 Other 90 Output: Urine 1075 1195 700 Other: Voiding Method Indwelling Catheter Indwelling Catheter Indwelling Catheter ABP, PAP, CO, CI - Last Documented Arterial Blood Pressure 119/43 - Exam GENERAL DESCRIPTION: An elderly male lying in bed in no distress RESPIRATORY SYSTEM: Unlabored breathing , coarse breath sounds bilaterally HEART: S1 S2 regular rate and rhythm , ABDOMEN: Soft , no tenderness EXTREMITIES: No edema feet - Labs CBC & Chem 7: 03/19/23 05:07 03/19/23 05:07 Labs: Abnormal Lab Results - Last 24 Hours (Table) 03/18/23 03/19/23 03/19/23 Range/Units 19:10 00:03 05:07 RBC 3.07 L (4.30-5.90) m/uL Hgb 10.6 L (13.0-17.5) gm/dL Hct 30.2 L (39.0-53.0) % Creatinine (0.66-1.25) mg/dL Glucose (74-99) mg/dL POC Glucose (mg/dL) 128 H 126 H (70-110) mg/dL Calcium (8.4-10.2) mg/dL ALT (4-49) U/L Total Protein (6.3-8.2) g/dL Albumin (3.5-5.0) g/dL 03/19/23 03/19/23 Range/Units 05:07 11:52 RBC (4.30-5.90) m/uL Hgb (13.0-17.5) gm/dL Hct (39.0-53.0) % Creatinine 0.61 L (0.66-1.25) mg/dL Glucose 105 H (74-99) mg/dL POC Glucose (mg/dL) 116 H (70-110) mg/dL Calcium 8.2 L (8.4-10.2) mg/dL ALT 51 H (4-49) U/L Total Protein 6.2 L (6.3-8.2) g/dL Albumin 2.7 L (3.5-5.0) g/dL Assessment and Plan (1) Fever Current Visit: Yes Status: Acute Code(s): R50.9 - FEVER, UNSPECIFIED SNOMED Code(s): 169014239 (2) Pneumonia Current Visit: Yes Status: Acute Code(s): J18.9 - PNEUMONIA, UNSPECIFIED ORGANISM SNOMED Code(s): 093638713 (3) West Nile Virus infection Current Visit: Yes Status: Acute Code(s): A92.30 - WEST NILE VIRUS INFECTION, UNSPECIFIED SNOMED Code(s): 244633819 Plan: 1patient with encephalitis/meningitis ,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, the treatment is mostly supportive, there is some role for immunoglobulin infusion which the patient has already received 2-episode of vomiting aspiration and acute respiratory failure requiring intubation--, patient with likely aspiration pneumonia, blood and sputum culture currently pending patient white count has normalized 3-patient has shown clinical improvement the patient is afebrile white count has normalized, patient to continue with the Zosyn , possible short course of Augmentin to finish his therapy Family the bedside questions were answered Dictation was produced using [employer] dictation software. please excuse any grammatical, word or spelling errors. Time with Patient: Less than 30
[2023-03-19] MEDS: METOPROLOL TARTRATE 50 MG TAB PO SCH (16:33)
[2023-03-19 17:45] LABS: Glucose,Whole Blood 114 mg/dL (70-110)
[2023-03-19] MEDS: SODIUM CHLORIDE 0.9% 500 ML 500 ML IV SCH (20:58)
[2023-03-19 23:46] LABS: Glucose,Whole Blood 110 mg/dL (70-110)
[2023-03-20] MEDS: PIPERACILLIN-TAZOBACTAM 3.375 GM in SODIUM CHLORIDE 0.9% 100 ML IVPB SCH ×2 (00:10→08:44)
[2023-03-20 05:50] LABS: HGB 10.9 gm/dL (13.0-17.5); MCH 33.5 pg (25.0-35.0); MCHC 34.1 g/dL (31.0-37.0); MCV 98.3 fL (80.0-100.0); Mean Platelet Volume 7.5; Platelet Count 191 k/uL (150-450); RBC 3.26 m/uL (4.30-5.90); RDW 13.5 % (11.5-15.5); WBC 8.7 k/uL (3.8-10.6)
[2023-03-20 06:03] LABS: ALT 53 U/L (4-49); AST 37 U/L (17-59); African American GFR (CKD) >90 (>60 ml/min/1.73 sqM); Albumin 2.8 g/dL (3.5-5.0); Alkaline Phosphatase 68 U/L (38-126); Anion Gap 8 mmol/L; Blood Urea Nitrogen 20 mg/dL (9-20); Calcium 8.1 mg/dL (8.4-10.2); Carbon Dioxide 22 mmol/L (22-30); Chloride 106 mmol/L (98-107); Glucose 114 mg/dL (74-99); Non-African American GFR(CKD) >90 (>60 ml/min/1.73 sqM); Potassium 3.8 mmol/L (3.5-5.1); Sodium 136 mmol/L (137-145); Total Bilirubin 0.8 mg/dL (0.2-1.3); Total Protein 6.4 g/dL (6.3-8.2)
[2023-03-20 06:58] LABS: Glucose,Whole Blood 120 mg/dL (70-110)
[2023-03-20] MEDS ORDERED: POTASSIUM BICARBONATE/CIT AC 20 MEQ TABLET.EFF NG-TUBE SCH (07:00)
[2023-03-20] MEDS: IPRATROPIUM-ALBUTEROL 3 ML NEB INHALATION SCH ×3 (08:02→21:53)
--- NOTE | 2023-03-20 08:13 | P.PN ---
Subjective Principal diagnosis: Altered mental status This is 77-year-old white male with no significant past medical history came in and septic shock and questionable pneumonia. He was significant tachycardia with hypotension and was placed in ICU for observation. He continues to have significant mental status changes. Question febrile seizure element. Temperature is improved IV Tylenol has been administered. Appreciate multiple consultants input. Now extubated with PEG tube but significantly more alert. Objective - Vital Signs Vital signs: Vital Signs Temp 98.8 F 03/19/23 20:00 Pulse 71 03/20/23 08:03 Resp 24 03/20/23 07:00 BP 138/80 03/20/23 07:00 Pulse Ox 93 L 03/20/23 08:03 FiO2 40 03/17/23 10:28 Intake & Output 03/19/23 03/20/23 03/20/23 18:59 06:59 18:59 Intake Total 1375 1325 105 Output Total 1160 1345 75 Balance 215 -20 30 Weight 87.6 kg Intake: IV 270 300 20 Invasive Line 10 10 Piperacillin-Tazobactam 3 100 .375 gm In Sodium Chloride 0.9% 100 ml @ 25 mls/hr IVPB Q8HR [facility] Rx# :[id number] Sodium Chloride 0.9% 500 260 200 20 ml 500 ml @ 20 mls/hr IV .Q24H [facility] Rx#:[id number] Tube Feeding 1105 935 85 Other 90 Output: Urine 1160 1345 75 Other: Voiding Method Indwelling Catheter Indwelling Catheter ABP, PAP, CO, CI - Last Documented Arterial Blood Pressure 119/43 - Constitutional General appearance: Present: average body habitus - EENT Eyes: Absent: abnormal pupil - Respiratory Respiratory: bilateral: diminished - Cardiovascular Rhythm: regular Heart sounds: normal: S1, S2 Abnormal Heart Sounds: Absent: S3 Gallop - Gastrointestinal General gastrointestinal: Present: soft. Absent: tenderness - Labs CBC & Chem 7: 03/20/23 05:32 03/20/23 05:32 Labs: Abnormal Lab Results - Last 24 Hours (Table) 03/19/23 03/19/23 03/20/23 Range/Units 11:52 17:44 05:32 RBC 3.26 L (4.30-5.90) m/uL Hgb 10.9 L (13.0-17.5) gm/dL Hct 32.0 L (39.0-53.0) % Sodium (137-145) mmol/L Creatinine (0.66-1.25) mg/dL Glucose (74-99) mg/dL POC Glucose (mg/dL) 116 H 114 H (70-110) mg/dL Calcium (8.4-10.2) mg/dL ALT (4-49) U/L Albumin (3.5-5.0) g/dL 03/20/23 03/20/23 Range/Units 05:32 06:57 RBC (4.30-5.90) m/uL Hgb (13.0-17.5) gm/dL Hct (39.0-53.0) % Sodium 136 L (137-145) mmol/L Creatinine 0.59 L (0.66-1.25) mg/dL Glucose 114 H (74-99) mg/dL POC Glucose (mg/dL) 120 H (70-110) mg/dL Calcium 8.1 L (8.4-10.2) mg/dL ALT 53 H (4-49) U/L Albumin 2.8 L (3.5-5.0) g/dL Microbiology - Last 24 Hours (Table) 03/14/23 10:45 Blood Culture - Final Blood Assessment and Plan (1) Altered mental status Current Visit: Yes Status: Acute Code(s): R41.82 - ALTERED MENTAL STATUS, UNSPECIFIED SNOMED Code(s): 960534526 (2) Pneumonia Current Visit: Yes Status: Acute Code(s): J18.9 - PNEUMONIA, UNSPECIFIED ORGANISM SNOMED Code(s): 296094145 (3) Septic shock Current Visit: Yes Status: Acute Code(s): A41.9 - SEPSIS, UNSPECIFIED ORGANISM; R65.21 - SEVERE SEPSIS WITH SEPTIC SHOCK SNOMED Code(s): 36191853 (4) West Nile fever Current Visit: Yes Status: Acute Code(s): A92.30 - WEST NILE VIRUS INFECTION, UNSPECIFIED SNOMED Code(s): 527106690 Plan: Doing well after aspiration. Not. Now with PEG tube. Transfer to stepdown unit. Prognosis is improving significantly. Encephalitis is starting to resolve. Check CBC and CMP in a.m.
[2023-03-20] MEDS: CHOLECALCIFEROL 125 MCG (5000 IU) TABLET PO SCH (08:43)
[2023-03-20] MEDS: ZINC SULFATE 220 MG CAP PO SCH (08:43)
[2023-03-20] MEDS: AMIODARONE 200 MG TAB PO SCH ×2 (08:43→21:05)
[2023-03-20] MEDS: APIXABAN 5 MG TAB PO SCH ×2 (08:44→21:06)
[2023-03-20] MEDS: FLUCONAZOLE 100 MG TAB PO SCH (08:44)
[2023-03-20] MEDS: ASCORBIC ACID 500 MG TAB PO SCH (08:44)
[2023-03-20] MEDS: PANTOPRAZOLE 40 MG/10 ML VIAL IVP SCH (08:44)
[2023-03-20] MEDS: LACTOBACILLUS ACIDOPHILUS/PECT 1 EACH CAPSULE PO SCH ×3 (08:44→21:06)
[2023-03-20] MEDS: polyethylene glycoL 3350 17 GM POWD.PACK PO SCH (08:44)
[2023-03-20 12:11] LABS: Glucose,Whole Blood 108 mg/dL (70-110)
--- NOTE | 2023-03-20 12:15 | P.PN ---
Subjective Progress Note Date: 03/20/23 Principal diagnosis: Sepsis and mental status change, West Nile virus encephalitis, aspiration pneumonia I am seeing this patient in new consultation today 02/24/2023 after the patient presented to the ER yesterday evening with concerns of altered mental status. Patient is a 77-year-old white male with a limited past medical history. Apparently, the patient's found him down on the ground early yesterday morning confused. His last known well time was the night prior. Nonenhanced brain CT on arrival shows age-related atrophic and chronic small vessel ischemia without any obvious acute cranial process. Initial chest x-ray on arrival showed fullness around the right hilum likely related patient rotation. Underlying infiltrate or mass not excluded. CBC shows leukocytosis with a WBC count of 16, hemoglobin 13.5, hematocrit 39.1, platelets 109,000. BMP shows sod ium 136, potassium 3.7, chloride 110, serum bicarb 17, BUN 36, creatinine 1.22, glucose 102. LFTs are mildly elevated. Troponins are 1.66 and 1.9. Urinalysis not particularly concerning for UTI. Negative for influenza, RSV, COVID-19. Patient was originally admitted to the floor, and was transferred to the ICU last night for tachycardia and hypotension. Yesterday, he was given a total of 2.5 L normal saline bolus. On my evaluation, the patient is lying in bed, extremities are rigid, he is febrile with a t-max of 103 F. He is on 2 L/m nasal cannula, oxygenating around 94%. He is disoriented and unable to provide any meaningful information. He mostly mumbles. I did speak to the patient's daughter, who denies any recent sinus, ear, or pulmonary infections. I am concerned for possible encephalitis or meningitis. I spoke with neurology last night, and updated them on the patient. There is an EEG pending for the morning. Patient is empirically covered with combination of ampicillin, vancomycin, and Rocephin. Infectious disease consult was also placed. Heart rhythm is currently normal sinus on bedside monitor. Blood pressure is normotensive. Normal saline is infusing at 130 ML's per hour. No need for vasopressors at this time. Patient will need a thorough neurological workup. He is being monitored in the intensive care unit in the meantime. On 03/13/2023, no change in neurologic functions and the patient remains in the same neurologic status. He continues to receive enteral feeding for nutritional support via an NG tube. The patient will need a PEG tube and this has been tentatively scheduled to be done on 03/16/2023. Anticoagulation will placed on hold for now. No other complaints. No signs of any respiratory distress. The blood work shows a BUN of 36 with a creatinine of 0.7. The white cell count 15.4 with a hemoglobin of 13 and a platelet count of 218. Blood sugars at 219. The patient will be having a PEG tube insertion for enteral feeding and nu tritional support. 03/14/2023, the patient is being seen for a follow-up in the intensive care unit . Events from overnight was noted. The patient had massive aspiration. Apparently the NG tube got misplaced and the patient was having enteral feeding into his lungs. He became acutely short of breath, he went into respiratory distress. He was placed on 100% nonrebreather facemask. He was tried on a BiPAP which she failed and ultimately had to be intubated and placed on a mechanical ventilator. Post intubation, the patient became quite hypotensive. He received a total of 2.5 L of IV fluid and currently he is on normal saline running at the rate of 150 mL an hour. He is sedated with propofol at 25 mcg/kg/m. He is on a mechanical ventilator assist control mode with a rate of 28, tidal volume of 500, FiO2 of 50% with a PEEP of 5. An arterial line was inserted. He will also need a central line. 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 His chest x-ray immediately post aspiration showed some new infiltrates in his right upper lobe. NG tube has been removed. The patient has a orogastric tube in place for now. The patient is currently on IV Zosyn. The chest x-ray reveals new bilateral pulmonary infiltrates more so in the upper lobes. Lung bases are at this period. Orogastric tube is in the stomach. The white cell count is at 36.4, with a hemoglobin of 11.8 and a platelet count of 278. BUN is 46 with a creatinine of 1.08 and sodium levels of 137. Glucose at 128. Urine output is in order of 20 mL an hour. He is currently afebrile. 03/14/2023, the patient is being seen for a follow-up. Remains intubated on a mechanical ventilator. Earlier this morning, he was taken off the pressors and he is currently hemodynamically stable. At the same time, he had an issue with a SVT yesterday. He was given amiodarone and he was bolused and currently is on a maintenance of 0.5 mg/m. His cardiac rhythm is back into sinus rhythm. He remains on propofol which is running at 30 mcg/kg/m. He remains on a mechanical ventilator, assist control mode at the rate of 28, tidal volume of 500, FiO2 of 50% with a PEEP of 5. Blood gas shows improvement in oxygenation with a pH of 7.44 and a pO2 of 174 and a pCO2 of 30. White cell count is down to 12.8. Hemoglobin is at 10.4 and a platelet count is at 199. BUN is at 29 with a creatinine of 0.6 and the sodium levels is 137. Chest x-ray from yesterday shows limited bibasilar and right sided infiltrate. Orotracheal tube is in a good location. He has a left-sided triple-lumen catheter in place. Adequate urine output. Response to painful stimulation. His encephalopathic due to his underlying West Nile virus encephalitis. Pro-calcitonin level was at 4.25 indicating sepsis. The patient was aggressively resuscitated with IV fluids. IV fluids are currently running with normal saline at rate of 150 mL an hour. As mentioned, he is off pressors. Patient was seen and examined today on 03/16/2023, patient remains in the ICU, intubated and mechanically he is on assist control rate of 28 tidal volume 500 FiO2 of 50% and PEEP is 5. ABG showed a pO2 of 167 pCO2 of 33 pH of 7.44. Ches t x-ray continues to show evidence of minimal bibasilar infiltrates, right more so than left. His vent settings were changed I cut him down to a rate of 22 and I cut down the FiO2 to 40% instead of 50%, patient remains on propofol at 40 mcg/kg/m of the fluid 0.9 normal saline at 75 mL/h he remains nothing by mouth, nasogastric tube is in place, urine output seems to be excellent. Patient remains on Zosyn for presumptive aspiration pneumonia. Patient is scheduled to have a PEG tube placed today. Obviously the patient is not quite ready for weaning and extubation, however I do plan to consider start weaning trials in the next 24 hours. WBC count is 8.1 hemoglobin is 9.9 electrolytes are normal renal profile is normal Patient was reevaluated today on 03/17/2023, patient underwent uneventful placement of a PEG tube yesterday. However today he remains intubated and mechanically ventilated he is on assist control rate of 22 to volume 500 FiO2 40% and PEEP of 5 ABG showed a pO2 of 105 pCO2 34 pH 7.47. Patient remains on propofol at 10 mcg/kg/m IV fluid at 75 mL per hour and amiodarone 0.5 mg/m. Patient was also on diltiazem, and he is on Zosyn for antibiotics/aspiration pneumonia. CBC showed WBC count of 7.5 hemoglobin 9.7 electrodes are normal renal profile is normal chest x-ray showed bibasilar opacity/minimal infiltrate/atelectasis. Patient was reevaluated today on 03/18/2023, patient was successfully extubated yesterday. He also had a PEG tube placed the day before, and he is receiving nutritional support and medications via PEG tube. Patient is awake today, aler t, but nonetheless slow and intermittently confused. He is not in any distress, patient is on room air. He is receiving vital AF at 55 mL per hour via PEG tube, patient remains on Zosyn empirically for aspiration pneumonia. WBC count today is 9.3 hemoglobin is 9.9. Basic metabolic profile is normal and his liver enzymes are normal. I will transfer the patient out of the ICU to a medical floor, cardiac floor. Reevaluated today on 03/19/2023, patient remains in the ICU as an overflow. He is on room air, arousable, follows instructions, speech remains garbled and the patient is oriented to place and to time. He knew the year and he knew where he was, speech again is garbled his IV fluids at KVO he is tolerating feeding via PEG tube. And we are still in the process of getting the patient to possibly go to [facility] rehab. Apparently the patient sustained some encephalopathy which is improving from his West Nile virus encephalitis. WBC count is 10 hemoglobin is 10.6 basic metabolic profile is normal and renal profile is normal Reevaluated today on 03/20/2023, patient remains in the ICU basically about the same. Not much of a change occurred in the last 24 hours. Remains on room air, his mental status continues to wax and wane his speech remains garbled but overall not much of a change in the last few days. Patient is tolerating enteral feeding via PEG tube and overall, the plan is to eventually send the patient to rehab. Or ECF CBC today is relatively normal basic metabolic profile is normal renal profile is normal liver profile is relatively normal Objective - Vital Signs Vital signs: Vital Signs Temp 97.8 F 03/20/23 08:00 Pulse 82 03/20/23 09:00 Resp 31 H 03/20/23 09:00 BP 113/88 03/20/23 09:00 Pulse Ox 90 L 03/20/23 09:00 FiO2 40 03/17/23 10:28 Intake & Output 03/19/23 03/20/23 03/20/23 18:59 06:59 18:59 Intake Total 1375 1325 315 Output Total 1160 1345 400 Balance 215 -20 -85 Weight 87.6 kg Intake: IV 270 300 60 Invasive Line 10 10 Piperacillin-Tazobactam 3 100 .375 gm In Sodium Chloride 0.9% 100 ml @ 25 mls/hr IVPB Q8HR [facility] Rx# :[id number] Sodium Chloride 0.9% 500 260 200 60 ml 500 ml @ 20 mls/hr IV .Q24H [facility] Rx#:[id number] Tube Feeding 1105 935 255 Other 90 Output: Urine 1160 1345 400 Other: Voiding Method Indwelling Catheter Indwelling Catheter Indwelling Catheter ABP, PAP, CO, CI - Last Documented Arterial Blood Pressure 119/43 - Exam GENERAL EXAM: Revealed a 77-year-old white male on room air, not in distress. On room air HEAD: Normocephalic and atraumatic EYES: Normal reaction of pupils, equal size. NOSE: Clear with pink turbinates. THROAT: No erythema or exudates. NECK: No masses, no JVD. CHEST: No chest wall deformity. LUNGS: Minimal crackles at the bases. CVS: S1 and S2 normal with no audible murmur, regular rhythm. No extra heart sounds ABDOMEN: Obese soft nontender no megaly no rebound no guarding, PEG tube is intact. SKIN: No rashes CENTRAL NERVOUS SYSTEM: Awake, follows instructions, speech is garbled EXTREMITIES: There is no peripheral edema, clubbing, or cyanosis. Peripheral pulses are intact. - Labs CBC & Chem 7: 03/20/23 05:32 03/20/23 05:32 Labs: Abnormal Lab Results - Last 24 Hours (Table) 03/19/23 03/20/23 03/20/23 Range/Units 17:44 05:32 05:32 RBC 3.26 L (4.30-5.90) m/uL Hgb 10.9 L (13.0-17.5) gm/dL Hct 32.0 L (39.0-53.0) % Sodium 136 L (137-145) mmol/L Creatinine 0.59 L (0.66-1.25) mg/dL Glucose 114 H (74-99) mg/dL POC Glucose (mg/dL) 114 H (70-110) mg/dL Calcium 8.1 L (8.4-10.2) mg/dL ALT 53 H (4-49) U/L Albumin 2.8 L (3.5-5.0) g/dL 03/20/23 Range/Units 06:57 RBC (4.30-5.90) m/uL Hgb (13.0-17.5) gm/dL Hct (39.0-53.0) % Sodium (137-145) mmol/L Creatinine (0.66-1.25) mg/dL Glucose (74-99) mg/dL POC Glucose (mg/dL) 120 H (70-110) mg/dL Calcium (8.4-10.2) mg/dL ALT (4-49) U/L Albumin (3.5-5.0) g/dL Microbiology - Last 24 Hours (Table) 03/14/23 10:45 Blood Culture - Final Blood Assessment and Plan Assessment: Impression: Acute hypoxic respiratory failure mostly secondary to aspiration pneumonia, extubated on 03/17/2023 Acute aspiration pneumonia Acute West Nile virus encephalitis with mental status change on presentation Altered mental status, secondary to above Acute febrile illness and sepsis aspiration pneumonia. Acute rhabdomyolysis, resolved. Elevated troponins, possibly related to supply/demand mismatch Episodic episodes of atrial fibrillation/SVT, on amiodarone. Via PEG tube. Status post PEG tube placement, 03/16/20 Recommendation: Continue transfer plans to ECF once a bed is available Discontinue Zosyn when the patient is ready for discharge and no need for any further antibiotics patient received adequate amount of Zosyn for aspiration pneumonia. Continue GI and DVT prophylaxis. Continue enteral feeding and nutritional support Continue physical therapy we will continue to follow. Time with Patient: Less than 30
--- NOTE | 2023-03-20 12:30 | P.PN ---
Progress Note - Text Progress Note Date: 03/20/23 Patient remains in the ICU. His condition is unchanged. PEG tube site is clean. Tube feeds are at goal. He'll continue receive supportive care.
--- NOTE | 2023-03-20 12:36 | P.PN ---
Subjective Progress Note Date: 03/20/23 I am following-up with the patient and he is accompanied with his and grand-son who state for past three days his mentation has been improving. No new neurological issues. Objective - Vital Signs Vital signs: Vital Signs Temp 97.8 F 03/20/23 08:00 Pulse 82 03/20/23 09:00 Resp 31 H 03/20/23 09:00 BP 113/88 03/20/23 09:00 Pulse Ox 90 L 03/20/23 09:00 FiO2 40 03/17/23 10:28 Intake & Output 03/19/23 03/20/23 03/20/23 18:59 06:59 18:59 Intake Total 1375 1325 315 Output Total 1160 1345 400 Balance 215 -20 -85 Weight 87.6 kg Intake: IV 270 300 60 Invasive Line 10 10 Piperacillin-Tazobactam 3 100 .375 gm In Sodium Chloride 0.9% 100 ml @ 25 mls/hr IVPB Q8HR [facility] Rx# :[id number] Sodium Chloride 0.9% 500 260 200 60 ml 500 ml @ 20 mls/hr IV .Q24H [facility] Rx#:[id number] Tube Feeding 1105 935 255 Other 90 Output: Urine 1160 1345 400 Other: Voiding Method Indwelling Catheter Indwelling Catheter Indwelling Catheter ABP, PAP, CO, CI - Last Documented Arterial Blood Pressure 119/43 - Exam General: The patient is sitting in bed and does not appear in acute distress. Neuro: Limited because of his condition. Patient is awake, alert, oriented to self, place. He correctly stated the year but did not know month. He is following simple commands. No aphasia or neglect. Pupils are round, equal and reactive to light. Pupils are 4mm bilaterally. No facial weakness. No dysarthria. Motor: Strength is hard to assess individual muscles because of pain (mostly bilateral shoulders). But briefly raised above gravity of uppers and good hand strength bilaterally. Briefly raised bilateral lower extremities above gravity. - Labs CBC & Chem 7: 03/20/23 05:32 03/20/23 05:32 Labs: Abnormal Lab Results - Last 24 Hours (Table) 03/19/23 03/20/23 03/20/23 Range/Units 17:44 05:32 05:32 RBC 3.26 L (4.30-5.90) m/uL Hgb 10.9 L (13.0-17.5) gm/dL Hct 32.0 L (39.0-53.0) % Sodium 136 L (137-145) mmol/L Creatinine 0.59 L (0.66-1.25) mg/dL Glucose 114 H (74-99) mg/dL POC Glucose (mg/dL) 114 H (70-110) mg/dL Calcium 8.1 L (8.4-10.2) mg/dL ALT 53 H (4-49) U/L Albumin 2.8 L (3.5-5.0) g/dL 03/20/23 Range/Units 06:57 RBC (4.30-5.90) m/uL Hgb (13.0-17.5) gm/dL Hct (39.0-53.0) % Sodium (137-145) mmol/L Creatinine (0.66-1.25) mg/dL Glucose (74-99) mg/dL POC Glucose (mg/dL) 120 H (70-110) mg/dL Calcium (8.4-10.2) mg/dL ALT (4-49) U/L Albumin (3.5-5.0) g/dL Microbiology - Last 24 Hours (Table) 03/14/23 10:45 Blood Culture - Final Blood Assessment and Plan Assessment: * Acute encephalopathy due to West Nile virus--mentation improved. * New onset aspiration pneumonia, respiratory distress, now on mechanical ventilation--extubated. * Acute metabolic encephalopathy likely from severe pneumonia and West Nile virus. * SIRS, pneumonia * Acute rhabdomyolysis, resolving, most recent CK 719. * MRI cervical spine showed moderate spinal stenosis at C3-C4 level. * Generalized weakness, multifactorial, due to above conditions. * Elevated cardiac enzymes * New onset atrial fibrillation currently on Eliquis. * History of bilateral shoulder pain/arthritis * History of bilateral knee replacement. Plan: * Patient mentation is improving. * I will obtain a CK level. * Patient never had a seizure. His tremors likely related to West Nile virus. He had EEG performed twice, which did not reveal any epileptiform activity. Keppra was discontinued during this admission.. * MRI Brain w/ and w/o: Was reported as no evidence for encephalitis. No evidence of intracranial mass, acute/subacute infarct or abnormal enhancement. Nonspecific white matter changes, likely related to small vessel ischemic disease. * Repeat EEG performed 03/01/2023 was abnormal due to background slowing of moderate degree consistent with encephalopathy. No epileptiform activity was seen. When compared to the initial EEG from 02/24/2023, the background seems to have gotten worse. * CSF performed 02/24/2023 was colorless and clear. CSF glucose 52, protein 86 (12-60). WBC count 4, RBCs 358. Comprehensive viral detection negative. 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 For west nile it is usually supportive care. * MRI Cervical spine w/ and w/o: Is reported as mild to moderate multilevel degenerative disc disease with scattered facet and uncovertebral joint. Appendectomy. Degenerative grade 1 anterolisthesis C7 to T1. Moderate focal signal canal stenosis at C3-C4 with abutment and flattening of both the dorsal and ventral cord. Sagittal FLAIR sequence suggest some focal cord edema here. Correlate for myelopathic symptoms. The axial images are essentially nondia gnostic due to patient motion. Unable to adequately assess then neuroforamen. Orthopedic surgery team was consulted and they evaluated patient and no surgical intervention. On my review of MRI, there is moderate spinal stenosis at C3 [address] Mills, no significant cord signal changes. * Cardiology on board for new onset atrial fibrillation. Will defer anticoagulation regiment to cardiology team. * Other management as per IM, critical care team. * Neurology will follow peripherally. Dr. Polk will start coverage tomorrow A.M. if needed then Dr. Mills will start this Thursday A.M. Time with Patient: Less than 30
--- NOTE | 2023-03-20 14:44 | P.PN ---
Subjective Progress Note Date: 03/20/23 Principal diagnosis: West Nile virus encephalopathy, pneumonia, sepsis, sepsis shock Mr. Avelar is a 77 y.o., right handed, male, who lives in a 2 story home, with 8 KRYSTIN. Prior to admission, he was ambulating without an assistive device. He was independent for basic/advanced ADLs. Current driving: yes. Retired: yes. Support system: , Family He was admitted to [facility] on 02/23. He presented to the ED via EMS with change in mental status. Patient was found on the ground the morning of arrival by his . In the EC his white count was elevated, lactic acid of 4, elevated troponin. Tested negative for influenza type a and B, RSV and COVID. Chest x-ray showed possible pneumonia. Blood cultures were collected which were negative, IV antibiotics were ordered. UA was collected and was negative. Urine culture was negative. CT of the brain showed nothing acute. patient was admitted to the ICU with pneumonia and sepsis/septic shock. Consults to cardiology, neurology and infectious disease were placed. Patient was also seen by pulmonology who had concerns for possible meningitis and West Nile virus. Patient had a work-up for meningitis including lumbar puncture which was ruled out. Eventually the West Nile virus panel came back positive. There was also concern for seizure like activity in the hospital, EEG was ordered. EEG revealed findings suggestive of encephalopathy with no indication of seizures. Patient had an ultrasound of the abdomen and pelvis completed due to elevated LFTs which showed sludge in the gallbladder with hepatomegaly, otherwise it was a limited exam. Hepatitis panel was negative. During his hospital stay he also had an episode of atrial fibrillation with RVR was started on Cardizem and heparin drip. He failed a swallow study and had an NG tube inserted for feeding. 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 Orthopedic was consulted and determined that the cervical changes were likely chronic in nature no acute emergent/urgent changes of the cervical spine. 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 PM&R consulted for rehab recommendations. Therapy evaluations reviewed; patient needing total assist for bathing, total assist for UB dressing, no ability to demonstrate LB dressing, total assist for grooming, assist for toileting, assist for bed mobility 03/12/2023:patient was found in bed with HOB elevated and and daughter at bedside. Patient is lethargic, opens eyes momentarily to repeated name calling and light touch. Patient non verbal at this time. He is not able to respond to/answer questions. He appears comfortable. He does not appear to be in pain. Urinary device in place. NG tube in place. Spoke with family and explained re habilitation options at discharge. Explained that in the patients current state he is not a candidate for IPR. Also, explained that we will follow with the patient to assess progress and most fitting rehabilitation plan at discharge. 03/20/2023: Patient had NG tube dislodgment resulting in feedings entering his lungs. Patient was subsequently intubated on 03/14 and extubated on 03/17. He also had issues with SVT which resulted in a amiodarone drip. He did convert back into sinus rhythm. He had a PEG tube placed 03/16. 03/20/23: Patient was found in bed, with head of bed elevated, family at bedside. Neurologist also at bedside who states will sign off case as no further neurological work-up warranted. Patient is awake, alert. No signs of distress noted. Mitchell catheter intact/draining. On room air. Patient converse eating appropriately. Discussed rehabilitation needs with patient and family. Yesterday's evaluations by therapy noted that patient was total assist for bed mobility with no ability to demonstrate other self-care tasks. Anticipate that patient's altered mental status played a role in patient's therapy evaluations. Advised family we will continue to monitor the the patient and progress with therapy and will determine discharge plan when patient is more medically stable and nearing discharge. Therapy evaluations as of 03/19/2023: Total assist for bed mobility, with no ability to demonstrate other self-care abilities. Stand step pivot total assist. Objective - Vital Signs Vital signs: Vital Signs Temp 97.8 F 03/20/23 08:00 Pulse 82 03/20/23 09:00 Resp 31 H 03/20/23 09:00 BP 113/88 03/20/23 09:00 Pulse Ox 90 L 03/20/23 09:00 FiO2 40 03/17/23 10:28 Intake & Output 03/19/23 03/20/23 03/20/23 18:59 06:59 18:59 Intake Total 1375 1325 315 Output Total 1160 1345 400 Balance 215 -20 -85 Weight 87.6 kg Intake: IV 270 300 60 Invasive Line 10 10 Piperacillin-Tazobactam 3 100 .375 gm In Sodium Chloride 0.9% 100 ml @ 25 mls/hr IVPB Q8HR [facility] Rx# :[id number] Sodium Chloride 0.9% 500 260 200 60 ml 500 ml @ 20 mls/hr IV .Q24H [facility] Rx#:[id number] Tube Feeding 1105 935 255 Other 90 Output: Urine 1160 1345 400 Other: Voiding Method Indwelling Catheter Indwelling Catheter Indwelling Catheter ABP, PAP, CO, CI - Last Documented Arterial Blood Pressure 119/43 - Exam EXAM: General: WDWN, male, in bed with HOB elevated, family at bedside, NAD Head: Normocephalic, atraumatic. Eyes: symmetric Ears: Symmetric. Hearing within normal limits Mouth: Clear/dry Neck: supple Cardiac: monitor tech in place. Calves supple, non tender, trace bilat LE edema, SCD's in place Lungs: Breathing comfortably on RA. Chest symmetric. Abdomen: Soft, nontender. peg tube in place Extremities: Arthritic changes consistent with age. Neurological: Alert and oriented x 2 (alert to person and place) Speech is clear Cranial nerves: intact Sensation:equal to b/l upper and lower extremities Musculoskeletal: ROM WNL except: bilat shoulder (chronic per family) MMT UE Sh Abd EE EF FABD WE HG Right 3 3+ 3+ 3+ 3+ 4 Left 3 3+ 3+ 3+ 3+ 4 MMT LE HF KE DF EHL Right 3 3+ 3+ 4 Left 3 3+ 3+ 4 Reflexes Biceps Triceps Brachioradialis Patella Achilles Babinski Hoffmans Right 2 2 2 2 Left 2 2 2 2 Skin: Skin intact where visible to head, neck, and bilateral upper and lower extremities EXCEPT: PIV, left chest port Psych: Calm, cooperative - Labs CBC & Chem 7: 03/20/23 05:32 03/20/23 05:32 Labs: Abnormal Lab Results - Last 24 Hours (Table) 03/19/23 03/19/23 03/20/23 Range/Units 11:52 17:44 05:32 RBC 3.26 L (4.30-5.90) m/uL Hgb 10.9 L (13.0-17.5) gm/dL Hct 32.0 L (39.0-53.0) % Sodium (137-145) mmol/L Creatinine (0.66-1.25) mg/dL Glucose (74-99) mg/dL POC Glucose (mg/dL) 116 H 114 H (70-110) mg/dL Calcium (8.4-10.2) mg/dL ALT (4-49) U/L Albumin (3.5-5.0) g/dL 03/20/23 03/20/23 Range/Units 05:32 06:57 RBC (4.30-5.90) m/uL Hgb (13.0-17.5) gm/dL Hct (39.0-53.0) % Sodium 136 L (137-145) mmol/L Creatinine 0.59 L (0.66-1.25) mg/dL Glucose 114 H (74-99) mg/dL POC Glucose (mg/dL) 120 H (70-110) mg/dL Calcium 8.1 L (8.4-10.2) mg/dL ALT 53 H (4-49) U/L Albumin 2.8 L (3.5-5.0) g/dL Microbiology - Last 24 Hours (Table) 03/14/23 10:45 Blood Culture - Final Blood Assessment and Plan Assessment: #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, pn eumonia and septic shock #West Nile virus encephalopathy -IVIG x3 doses #Altered mental status secondary to above #Acute respiratory failure secondary to aspiration pneumonia -intubation with mechanical ventilation 03/14, extubated 03/17 -IV antibiotics #Gait impairment/decline in ADLs secondary to above #Rule out seizures -EEG suggestive of encephalopathy with no indication of seizures -Patient remains on Keppra -03/20/23: no longer on keppra #Pneumonia -IV antibiotics #Elevated troponins secondary to supply/demand mismatch #Rhabdomyolysis -Improving #Elevated LFTs -Hepatitis panel negative, ultrasound showing sludge of the gallbladder and hepatomegaly #Atrial fibrillation with RVR -Rate now controlled on beta-blockers, anticoagulated with Eliquis #s/p SVT -converted #Anxiety -Ativan # Bowel/ Bladder: Nursing to monitor and report concerns if any. -03/12/23: urinary collection system in use # Diet-n.p.o., failed swallow study -s/p peg tube placement # Skin/wound: Skin/Wound care to follow as needed # Pain Management -Tylenol 650 mg every 4 hours as needed, dilaudid 0.5 mg q 4 hours # DVT Prophylaxis: -Eliquis # Comorbidities: No significant medical history was not on any home medications at time of admission # Your medical dx and mgt Goals: Modified Independent mobility and ADLS both basic and advanced; increased functional mobility/strength; increased balance, safety, endurance. Improvement in medical issues through your care. Barriers: Infection, pain, cognition, lethargy, respiratory status Discharge recommendation: will continue to monitor and assess progress. Patient is total assist with most tasks, he will definitely need rehabilitation at discharge. Likely a good IPR candidate. We will continue to monitor the patients progress and make further determinations at follow-up. Patient seen and examined in coordination with Dr. Shay Author: Sherly Chong NP
--- NOTE | 2023-03-20 16:37 | P.PN ---
Subjective Progress Note Date: 03/20/23 Principal diagnosis: Fever Patient is a 77-year-old male presenting to the hospital y after the patient was found to be unresponsive by the , patient has been febrile initial testing negative including LP which was only mildly elevated protein. 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 On today's evaluation that is 03/20/2023, the patient continues to be afebrile the patient is breathing comfortably on 2 L nasal cannula oxygen, the patient denies chest pain or worsening cough, patient denies abdominal pain and no nausea/vomiting or diarrhea reported patient white count is 8.7, creatinine 0.59 Objective - Vital Signs Vital signs: Vital Signs Temp 97.8 F 03/20/23 08:00 Pulse 73 03/20/23 13:20 Resp 31 H 03/20/23 09:00 BP 113/88 03/20/23 09:00 Pulse Ox 90 L 03/20/23 09:00 FiO2 40 03/17/23 10:28 Intake & Output 03/19/23 03/20/23 03/20/23 18:59 06:59 18:59 Intake Total 1375 1325 315 Output Total 1160 1345 400 Balance 215 -20 -85 Weight 87.6 kg Intake: IV 270 300 60 Invasive Line 10 10 Piperacillin-Tazobactam 3 100 .375 gm In Sodium Chloride 0.9% 100 ml @ 25 mls/hr IVPB Q8HR [facility] Rx# :[id number] Sodium Chloride 0.9% 500 260 200 60 ml 500 ml @ 20 mls/hr IV .Q24H [facility] Rx#:[id number] Tube Feeding 1105 935 255 Other 90 Output: Urine 1160 1345 400 Other: Voiding Method Indwelling Catheter Indwelling Catheter Indwelling Catheter ABP, PAP, CO, CI - Last Documented Arterial Blood Pressure 119/43 - Exam GENERAL DESCRIPTION: An elderly male lying in bed in no distress RESPIRATORY SYSTEM: Unlabored breathing , coarse breath sounds bilaterally HEART: S1 S2 regular rate and rhythm , ABDOMEN: Soft , no tenderness EXTREMITIES: No edema feet - Labs CBC & Chem 7: 03/20/23 05:32 03/20/23 05:32 Labs: Abnormal Lab Results - Last 24 Hours (Table) 03/19/23 03/20/23 03/20/23 Range/Units 17:44 05:32 05:32 RBC 3.26 L (4.30-5.90) m/uL Hgb 10.9 L (13.0-17.5) gm/dL Hct 32.0 L (39.0-53.0) % Sodium 136 L (137-145) mmol/L Creatinine 0.59 L (0.66-1.25) mg/dL Glucose 114 H (74-99) mg/dL POC Glucose (mg/dL) 114 H (70-110) mg/dL Calcium 8.1 L (8.4-10.2) mg/dL ALT 53 H (4-49) U/L Albumin 2.8 L (3.5-5.0) g/dL 03/20/23 Range/Units 06:57 RBC (4.30-5.90) m/uL Hgb (13.0-17.5) gm/dL Hct (39.0-53.0) % Sodium (137-145) mmol/L Creatinine (0.66-1.25) mg/dL Glucose (74-99) mg/dL POC Glucose (mg/dL) 120 H (70-110) mg/dL Calcium (8.4-10.2) mg/dL ALT (4-49) U/L Albumin (3.5-5.0) g/dL Microbiology - Last 24 Hours (Table) 03/14/23 10:45 Blood Culture - Final Blood Assessment and Plan (1) Fever Current Visit: Yes Status: Acute Code(s): R50.9 - FEVER, UNSPECIFIED SNOMED Code(s): 136098288 (2) Pneumonia Current Visit: Yes Status: Acute Code(s): J18.9 - PNEUMONIA, UNSPECIFIED ORGANISM SNOMED Code(s): 908526466 (3) West Nile Virus infection Current Visit: Yes Status: Acute Code(s): A92.30 - WEST NILE VIRUS INFECTION, UNSPECIFIED SNOMED Code(s): 008446003 Plan: 1patient with encephalitis/meningitis ,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, the treatment is mostly supportive, there is some role for immunoglobulin infusion which the patient has already received 2-episode of vomiting aspiration and acute respiratory failure requiring intubation--, patient with likely aspiration pneumonia, blood and sputum culture currently pending patient white count has normalized 3-patient has shown clinical improvement the patient is afebrile white count has normalized, we will discontinue Zosyn and give a short course of Augmentin to finish his therapy Dictation was produced using [employer] dictation software. please excuse any grammatical, word or spelling errors. Time with Patient: Less than 30
[2023-03-20] MEDS: METOPROLOL TARTRATE 50 MG TAB PO SCH (16:38)
[2023-03-20 17:37] LABS: Glucose,Whole Blood 119 mg/dL (70-110)
[2023-03-20] MEDS: SODIUM CHLORIDE 0.9% 500 ML 500 ML IV SCH (21:01)
[2023-03-20] MEDS: AMOXIC-POT CLAV 875-125MG 1 EACH TAB PEG/G-TUBE SCH (21:05)
[2023-03-20 23:58] LABS: Glucose,Whole Blood 112 mg/dL (70-110)
[2023-03-21 06:00] LABS: Glucose,Whole Blood 117 mg/dL (70-110)
[2023-03-21] MEDS: AMIODARONE 200 MG TAB PO SCH ×2 (08:19→21:37)
[2023-03-21] MEDS: ZINC SULFATE 220 MG CAP PO SCH (08:19)
[2023-03-21] MEDS: LACTOBACILLUS ACIDOPHILUS/PECT 1 EACH CAPSULE PO SCH ×3 (08:19→21:37)
[2023-03-21] MEDS: CHOLECALCIFEROL 125 MCG (5000 IU) TABLET PO SCH (08:19)
[2023-03-21] MEDS: FLUCONAZOLE 100 MG TAB PO SCH (08:20)
[2023-03-21] MEDS: PANTOPRAZOLE 40 MG/10 ML VIAL IVP SCH (08:20)
[2023-03-21] MEDS: polyethylene glycoL 3350 17 GM POWD.PACK PO SCH (08:20)
[2023-03-21] MEDS: ASCORBIC ACID 500 MG TAB PO SCH (08:20)
[2023-03-21] MEDS: APIXABAN 5 MG TAB PO SCH ×2 (08:20→21:36)
[2023-03-21] MEDS: AMOXIC-POT CLAV 875-125MG 1 EACH TAB PEG/G-TUBE SCH ×2 (08:20→21:36)
[2023-03-21] MEDS: IPRATROPIUM-ALBUTEROL 3 ML NEB INHALATION SCH ×3 (08:45→20:55)
--- NOTE | 2023-03-21 09:40 | P.PN ---
Subjective Covering for Dr. Holman over the weekend This is a 77-year-old male who presented to the ER with concerns of altered mental status. His had found him on the ground prior to coming to the ER. He was placed in ICU, has had tachycardia with hypotension. He also continues to have intermittent fevers. Workup for bacterial meningitis was negative. EEG was negative for seizure activity. Further workup still in progress. Patient still has a white count today. He is seen laying in bed in the ICU this morning, in no acute distress. Patient was found to have sepsis with respiration pneumonia and hypoxia, he required mechanical ventilation for a while but currently his been extubated. He responded well to antibiotics and currently he is on oral Augmentin and Diflucan. 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 Patient with patient is improving over the last 2 days and his hospital course completed by dysphagia status post PEG tube placement on 03/16. 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 with currently heart rate is controlled while on amiodarone 400 mg and eliquis 5 mg Objective - Vital Signs Vital signs: Vital Signs Temp 98.0 F 03/21/23 08:00 Pulse 70 03/21/23 09:02 Resp 22 03/21/23 08:00 BP 134/84 03/21/23 08:00 Pulse Ox 95 03/21/23 08:00 FiO2 40 03/17/23 10:28 Intake & Output 03/20/23 03/21/23 03/21/23 18:59 06:59 18:59 Intake Total 1365 1455 Output Total 1210 1775 Balance 155 -320 Weight 91.8 kg Intake: IV 260 260 Sodium Chloride 0.9% 500 260 260 ml 500 ml @ 20 mls/hr IV .Q24H [facility] Rx#:[id number] Tube Feeding 1105 1105 Other 90 Output: Urine 1210 1775 Other: Voiding Method Indwelling Catheter Indwelling Catheter Indwelling Catheter ABP, PAP, CO, CI - Last Documented Arterial Blood Pressure 119/43 - Exam -GENERAL: The patient is alert and oriented x2-3, mildly confused but follows commands, not in any acute distress. Well developed, well nourished. HEENT: Pupils are round and equally reacting to light. EOMI. No scleral icterus. No conjunctival pallor. Normocephalic, atraumatic. No pharyngeal erythema. No thyromegaly. CARDIOVASCULAR: S1 and S2 present. No murmurs, rubs, or gallops. PULMONARY: Chest is clear to auscultation, no wheezing , no crackles. -ABDOMEN: Soft, nontender, nondistended, normoactive bowel sounds. No palpable o rganomegaly. PEG tube in place MUSCULOSKELETAL: No joint swelling or deformity. EXTREMITIES: No cyanosis, clubbing, or pedal edema. NEUROLOGICAL: Gross neurological examination did not reveal any focal deficits. SKIN: No rashes. no petechiae. - Labs CBC & Chem 7: 03/20/23 05:32 03/20/23 05:32 Labs: Abnormal Lab Results - Last 24 Hours (Table) 03/20/23 03/20/23 03/20/23 Range/Units 05:32 17:35 23:45 POC Glucose (mg/dL) 119 H 112 H (70-110) mg/dL Creatine Kinase 54 L (55-170) U/L 03/21/23 Range/Units 05:58 POC Glucose (mg/dL) 117 H (70-110) mg/dL Creatine Kinase (55-170) U/L Assessment and Plan Assessment: Aspiration pneumonia Hypoxia, improved West Nile encephalitis, improved This patient status post PEG tube placement Metabolic encephalopathy, currently improved Altered mental status secondary to both improved Generalized weakness Paroxysmal atrial fibrillation on blood thinner. Plan: Continue with Augmentin and Diflucan Continue with the tube feeding via PEG tube Continue with amiodarone and Eliquis Several Consult is on the case including pulmonary, infectious disease, neurologist and general surgery Labs and medication were reviewed.. Continue same treatment. Continue with s ymptomatic treatment. Resume home medication. Monitor labs and vitals. DVT and GI prophylaxis. Further recommendations as per clinical course of the patient DVT prophylaxis: Eliquis GI Prophylaxis: Ppi PT/OT: Subacute rehab Prognosis is guarded
--- NOTE | 2023-03-21 11:49 | P.PN ---
Subjective Progress Note Date: 03/21/23 Principal diagnosis: Sepsis and mental status change, West Nile virus encephalitis, aspiration pneumonia I am seeing this patient in new consultation today 02/24/2023 after the patient presented to the ER yesterday evening with concerns of altered mental status. Patient is a 77-year-old white male with a limited past medical history. Apparently, the patient's found him down on the ground early yesterday morning confused. His last known well time was the night prior. Nonenhanced brain CT on arrival shows age-related atrophic and chronic small vessel ischemia without any obvious acute cranial process. Initial chest x-ray on arrival showed fullness around the right hilum likely related patient rotation. Underlying infiltrate or mass not excluded. CBC shows leukocytosis with a WBC count of 16, hemoglobin 13.5, hematocrit 39.1, platelets 109,000. BMP shows sod ium 136, potassium 3.7, chloride 110, serum bicarb 17, BUN 36, creatinine 1.22, glucose 102. LFTs are mildly elevated. Troponins are 1.66 and 1.9. Urinalysis not particularly concerning for UTI. Negative for influenza, RSV, COVID-19. Patient was originally admitted to the floor, and was transferred to the ICU last night for tachycardia and hypotension. Yesterday, he was given a total of 2.5 L normal saline bolus. On my evaluation, the patient is lying in bed, extremities are rigid, he is febrile with a t-max of 103 F. He is on 2 L/m nasal cannula, oxygenating around 94%. He is disoriented and unable to provide any meaningful information. He mostly mumbles. I did speak to the patient's daughter, who denies any recent sinus, ear, or pulmonary infections. I am concerned for possible encephalitis or meningitis. I spoke with neurology last night, and updated them on the patient. There is an EEG pending for the morning. Patient is empirically covered with combination of ampicillin, vancomycin, and Rocephin. Infectious disease consult was also placed. Heart rhythm is currently normal sinus on bedside monitor. Blood pressure is normotensive. Normal saline is infusing at 130 ML's per hour. No need for vasopressors at this time. Patient will need a thorough neurological workup. He is being monitored in the intensive care unit in the meantime. On 03/13/2023, no change in neurologic functions and the patient remains in the same neurologic status. He continues to receive enteral feeding for nutritional support via an NG tube. The patient will need a PEG tube and this has been tentatively scheduled to be done on 03/16/2023. Anticoagulation will placed on hold for now. No other complaints. No signs of any respiratory distress. The blood work shows a BUN of 36 with a creatinine of 0.7. The white cell count 15.4 with a hemoglobin of 13 and a platelet count of 218. Blood sugars at 219. The patient will be having a PEG tube insertion for enteral feeding and nu tritional support. 03/14/2023, the patient is being seen for a follow-up in the intensive care unit . Events from overnight was noted. The patient had massive aspiration. Apparently the NG tube got misplaced and the patient was having enteral feeding into his lungs. He became acutely short of breath, he went into respiratory distress. He was placed on 100% nonrebreather facemask. He was tried on a BiPAP which she failed and ultimately had to be intubated and placed on a mechanical ventilator. Post intubation, the patient became quite hypotensive. He received a total of 2.5 L of IV fluid and currently he is on normal saline running at the rate of 150 mL an hour. He is sedated with propofol at 25 mcg/kg/m. He is on a mechanical ventilator assist control mode with a rate of 28, tidal volume of 500, FiO2 of 50% with a PEEP of 5. An arterial line was inserted. He will also need a central line. 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 His chest x-ray immediately post aspiration showed some new infiltrates in his right upper lobe. NG tube has been removed. The patient has a orogastric tube in place for now. The patient is currently on IV Zosyn. The chest x-ray reveals new bilateral pulmonary infiltrates more so in the upper lobes. Lung bases are at this period. Orogastric tube is in the stomach. The white cell count is at 36.4, with a hemoglobin of 11.8 and a platelet count of 278. BUN is 46 with a creatinine of 1.08 and sodium levels of 137. Glucose at 128. Urine output is in order of 20 mL an hour. He is currently afebrile. 03/14/2023, the patient is being seen for a follow-up. Remains intubated on a mechanical ventilator. Earlier this morning, he was taken off the pressors and he is currently hemodynamically stable. At the same time, he had an issue with a SVT yesterday. He was given amiodarone and he was bolused and currently is on a maintenance of 0.5 mg/m. His cardiac rhythm is back into sinus rhythm. He remains on propofol which is running at 30 mcg/kg/m. He remains on a mechanical ventilator, assist control mode at the rate of 28, tidal volume of 500, FiO2 of 50% with a PEEP of 5. Blood gas shows improvement in oxygenation with a pH of 7.44 and a pO2 of 174 and a pCO2 of 30. White cell count is down to 12.8. Hemoglobin is at 10.4 and a platelet count is at 199. BUN is at 29 with a creatinine of 0.6 and the sodium levels is 137. Chest x-ray from yesterday shows limited bibasilar and right sided infiltrate. Orotracheal tube is in a good location. He has a left-sided triple-lumen catheter in place. Adequate urine output. Response to painful stimulation. His encephalopathic due to his underlying West Nile virus encephalitis. Pro-calcitonin level was at 4.25 indicating sepsis. The patient was aggressively resuscitated with IV fluids. IV fluids are currently running with normal saline at rate of 150 mL an hour. As mentioned, he is off pressors. Patient was seen and examined today on 03/16/2023, patient remains in the ICU, intubated and mechanically he is on assist control rate of 28 tidal volume 500 FiO2 of 50% and PEEP is 5. ABG showed a pO2 of 167 pCO2 of 33 pH of 7.44. Ches t x-ray continues to show evidence of minimal bibasilar infiltrates, right more so than left. His vent settings were changed I cut him down to a rate of 22 and I cut down the FiO2 to 40% instead of 50%, patient remains on propofol at 40 mcg/kg/m of the fluid 0.9 normal saline at 75 mL/h he remains nothing by mouth, nasogastric tube is in place, urine output seems to be excellent. Patient remains on Zosyn for presumptive aspiration pneumonia. Patient is scheduled to have a PEG tube placed today. Obviously the patient is not quite ready for weaning and extubation, however I do plan to consider start weaning trials in the next 24 hours. WBC count is 8.1 hemoglobin is 9.9 electrolytes are normal renal profile is normal Patient was reevaluated today on 03/17/2023, patient underwent uneventful placement of a PEG tube yesterday. However today he remains intubated and mechanically ventilated he is on assist control rate of 22 to volume 500 FiO2 40% and PEEP of 5 ABG showed a pO2 of 105 pCO2 34 pH 7.47. Patient remains on propofol at 10 mcg/kg/m IV fluid at 75 mL per hour and amiodarone 0.5 mg/m. Patient was also on diltiazem, and he is on Zosyn for antibiotics/aspiration pneumonia. CBC showed WBC count of 7.5 hemoglobin 9.7 electrodes are normal renal profile is normal chest x-ray showed bibasilar opacity/minimal infiltrate/atelectasis. Patient was reevaluated today on 03/18/2023, patient was successfully extubated yesterday. He also had a PEG tube placed the day before, and he is receiving nutritional support and medications via PEG tube. Patient is awake today, aler t, but nonetheless slow and intermittently confused. He is not in any distress, patient is on room air. He is receiving vital AF at 55 mL per hour via PEG tube, patient remains on Zosyn empirically for aspiration pneumonia. WBC count today is 9.3 hemoglobin is 9.9. Basic metabolic profile is normal and his liver enzymes are normal. I will transfer the patient out of the ICU to a medical floor, cardiac floor. Reevaluated today on 03/19/2023, patient remains in the ICU as an overflow. He is on room air, arousable, follows instructions, speech remains garbled and the patient is oriented to place and to time. He knew the year and he knew where he was, speech again is garbled his IV fluids at KVO he is tolerating feeding via PEG tube. And we are still in the process of getting the patient to possibly go to [facility] rehab. Apparently the patient sustained some encephalopathy which is improving from his West Nile virus encephalitis. WBC count is 10 hemoglobin is 10.6 basic metabolic profile is normal and renal profile is normal Reevaluated today on 03/20/2023, patient remains in the ICU basically about the same. Not much of a change occurred in the last 24 hours. Remains on room air, his mental status continues to wax and wane his speech remains garbled but overall not much of a change in the last few days. Patient is tolerating enteral feeding via PEG tube and overall, the plan is to eventually send the patient to rehab. Or ECF CBC today is relatively normal basic metabolic profile is normal renal profile is normal liver profile is relatively normal on 03/21/2023, patient remains in the ICU, basically asymptomatic, again his mental status is waxing and waning, his speech remains garbled but overall today he seems to be better than his previous days. Patient seems to be in a good mood, he is oriented to place and to year, we are still working on possibly transferring the patient to ECF if possible. He is on room air, he remains on vital AF at 85 mL per hour. He is not requiring any pressors. Objective - Vital Signs Vital signs: Vital Signs Temp 98.0 F 03/21/23 08:00 Pulse 70 03/21/23 09:02 Resp 22 03/21/23 08:00 BP 134/84 03/21/23 08:00 Pulse Ox 95 03/21/23 08:00 FiO2 40 03/17/23 10:28 Intake & Output 03/20/23 03/21/23 03/21/23 18:59 06:59 18:59 Intake Total 1365 1455 340 Output Total 1210 1775 370 Balance 155 -320 -30 Weight 91.8 kg Intake: IV 260 260 Sodium Chloride 0.9% 500 260 260 ml 500 ml @ 20 mls/hr IV .Q24H [facility] Rx#:[id number] Tube Feeding 1105 1105 340 Other 90 Output: Urine 1210 1775 370 Other: Voiding Method Indwelling Catheter Indwelling Catheter Indwelling Catheter ABP, PAP, CO, CI - Last Documented Arterial Blood Pressure 119/43 - Exam GENERAL EXAM: Revealed a 77-year-old white male on room air, not in distress. On room air HEAD: Normocephalic and atraumatic EYES: Normal reaction of pupils, equal size. NOSE: Clear with pink turbinates. THROAT: No erythema or exudates. NECK: No masses, no JVD. CHEST: No chest wall deformity. LUNGS: Minimal crackles at the bases. CVS: S1 and S2 normal with no audible murmur, regular rhythm. No extra heart sounds ABDOMEN: Obese soft nontender no megaly no rebound no guarding, PEG tube is intact. SKIN: No rashes CENTRAL NERVOUS SYSTEM: Awake, follows instructions, speech is garbled EXTREMITIES: There is no peripheral edema, clubbing, or cyanosis. Peripheral pulses are intact. - Labs CBC & Chem 7: 03/20/23 05:32 03/20/23 05:32 Labs: Abnormal Lab Results - Last 24 Hours (Table) 03/20/23 03/20/23 03/20/23 Range/Units 05:32 17:35 23:45 POC Glucose (mg/dL) 119 H 112 H (70-110) mg/dL Creatine Kinase 54 L (55-170) U/L 03/21/23 Range/Units 05:58 POC Glucose (mg/dL) 117 H (70-110) mg/dL Creatine Kinase (55-170) U/L Assessment and Plan Assessment: Impression: Acute hypoxic respiratory failure mostly secondary to aspiration pneumonia, extubated on 03/17/2023 Acute aspiration pneumonia Acute West Nile virus encephalitis with mental status change on presentation Altered mental status, secondary to above Acute febrile illness and sepsis aspiration pneumonia. Acute rhabdomyolysis, resolved. Elevated troponins, possibly related to supply/demand mismatch Episodic episodes of atrial fibrillation/SVT, on amiodarone. Via PEG tube. Status post PEG tube placement, 03/16/20 Recommendation: Transfer plans to [facility] in progress Consider getting the patient out to a medical surgical floor, does not need to be in the ICU is presently overflow No need for antibiotics when the patient is ready for discharge Continue GI and DVT prophylaxis. Continue enteral feeding and nutritional support Continue physical therapy we will continue to follow.
[2023-03-21 12:13] LABS: Glucose,Whole Blood 116 mg/dL (70-110)
--- NOTE | 2023-03-21 12:41 | P.PN ---
Subjective Progress Note Date: 03/21/23 CHIEF COMPLAINT: Protein malnutrition HISTORY OF PRESENT ILLNESS: The patient is a 77-year-old male status post PEG tube placement. On tube feeds. In the ICU. No overnight events. ROS: No fevers or chills. No new chest pain. No productive sputum PHYSICAL EXAM: VITAL SIGNS: Reviewed CONSTITUTIONAL: Well developed and in no acute distress. EYES: Conjuctivae without sclera icterus. Extraocular movements grossly intact. HEAD, EARS, NOSE, THROAT: Moist buccal mucosa. Head is atraumatic, norm ocephalic. RESPIRATORY: Non-labored respirations and equal bilateral excursions. CARDIOVASCULAR: Palpable 2+ radial pulses. ABDOMEN: Gastrostomy tube intact. MUSCULOSKELETAL: No gross deformity of the lower extremities noted. No clubbing. No cyanosis. SKIN: Good skin turgor. Well perfused. NEUROLOGIC: Cranial nerves II through XII grossly intact. No focal or lateralizing signs. PSYCH: Appropriate affect. CLINICAL LABS: Reviewed. Hemoglobin trending upward ASSESSMENT: 1. Protein malnutrition 2. Anemia PLAN: 1. Continue tube feeds Objective - Vital Signs Vital signs: Vital Signs Temp 98.3 F 03/21/23 04:00 Pulse 71 03/21/23 04:00 Resp 26 H 03/21/23 04:00 BP 130/78 03/21/23 04:00 Pulse Ox 94 L 03/21/23 04:00 FiO2 40 03/17/23 10:28 Intake & Output 03/20/23 03/21/23 03/21/23 18:59 06:59 18:59 Intake Total 1365 1455 Output Total 1210 1775 Balance 155 -320 Weight 91.8 kg Intake: IV 260 260 Sodium Chloride 0.9% 500 260 260 ml 500 ml @ 20 mls/hr IV .Q24H [facility] Rx#:[id number] Tube Feeding 1105 1105 Other 90 Output: Urine 1210 1775 Other: Voiding Method Indwelling Catheter Indwelling Catheter ABP, PAP, CO, CI - Last Documented Arterial Blood Pressure 119/43 - Labs CBC & Chem 7: 03/20/23 05:32 03/20/23 05:32 Labs: Abnormal Lab Results - Last 24 Hours (Table) 03/20/23 03/20/23 03/20/23 Range/Units 05:32 17:35 23:45 POC Glucose (mg/dL) 119 H 112 H (70-110) mg/dL Creatine Kinase 54 L (55-170) U/L 03/21/23 Range/Units 05:58 POC Glucose (mg/dL) 117 H (70-110) mg/dL Creatine Kinase (55-170) U/L
[2023-03-21] MEDS: METOPROLOL TARTRATE 50 MG TAB PO SCH (16:47)
[2023-03-21 17:56] LABS: Glucose,Whole Blood 101 mg/dL (70-110)
[2023-03-21] MEDS: SODIUM CHLORIDE 0.9% 500 ML 500 ML IV SCH (21:37)
[2023-03-21 23:41] LABS: Glucose,Whole Blood 107 mg/dL (70-110)
[2023-03-22 05:43] LABS: Glucose,Whole Blood 107 mg/dL (70-110)
--- NOTE | 2023-03-22 08:25 | P.PN ---
Subjective Covering for Dr. Holman over the weekend This is a 77-year-old male who presented to the ER with concerns of altered mental status. His had found him on the ground prior to coming to the ER. He was placed in ICU, has had tachycardia with hypotension. He also continues to have intermittent fevers. Workup for bacterial meningitis was negative. EEG was negative for seizure activity. Further workup still in progress. Patient still has a white count today. He is seen laying in bed in the ICU this morning, in no acute distress. Patient was found to have sepsis with respiration pneumonia and hypoxia, he required mechanical ventilation for a while but currently his been extubated. He responded well to antibiotics and currently he is on oral Augmentin and Diflucan. 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 Patient with patient is improving over the last 2 days and his hospital course completed by dysphagia status post PEG tube placement on 03/16. 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 Denies any specific complaints. No chest pain or dyspnea. Hemodynamically stable. Patient remains on Augmentin for Diflucan, he is also on Eliquis 5 mg Objective - Vital Signs Vital signs: Vital Signs Temp 98.7 F 03/22/23 04:00 Pulse 71 03/22/23 04:00 Resp 21 03/22/23 04:00 BP 133/83 03/22/23 04:00 Pulse Ox 98 03/22/23 04:00 FiO2 40 03/17/23 10:28 Intake & Output 03/21/23 03/22/23 03/22/23 18:59 06:59 18:59 Intake Total 935 1350 Output Total 1650 1205 Balance -715 145 Weight 93.8 kg Intake: IV 240 Sodium Chloride 0.9% 500 240 ml 500 ml @ 20 mls/hr IV .Q24H [facility] Rx#:[id number] Tube Feeding 935 1020 Other 90 Output: Urine 1650 1205 Other: Voiding Method Indwelling Catheter Indwelling Catheter ABP, PAP, CO, CI - Last Documented Arterial Blood Pressure 119/43 - Exam -GENERAL: The patient is alert and oriented x2-3, mildly confused but follows commands, not in any acute distress. Well developed, well nourished. HEENT: Pupils are round and equally reacting to light. EOMI. No scleral icterus. No conjunctival pallor. Normocephalic, atraumatic. No pharyngeal erythema. No thyromegaly. CARDIOVASCULAR: S1 and S2 present. No murmurs, rubs, or gallops. PULMONARY: Chest is clear to auscultation, no wheezing , no crackles. -ABDOMEN: Soft, nontender, nondistended, normoactive bowel sounds. No palpable organomegaly. PEG tube in place MUSCULOSKELETAL: No joint swelling or deformity. EXTREMITIES: No cyanosis, clubbing, or pedal edema. NEUROLOGICAL: Gross neurological examination did not reveal any focal deficits. SKIN: No rashes. no petechiae. - Labs CBC & Chem 7: 03/20/23 05:32 03/20/23 05:32 Labs: Abnormal Lab Results - Last 24 Hours (Table) 03/21/23 Range/Units 12:12 POC Glucose (mg/dL) 116 H (70-110) mg/dL Assessment and Plan Assessment: Aspiration pneumonia Hypoxia, improved West Nile encephalitis, improved This patient status post PEG tube placement Metabolic encephalopathy, currently improved Altered mental status secondary to both improved Generalized weakness Paroxysmal atrial fibrillation on blood thinner. Plan: Continue with Augmentin and Diflucan Continue with the tube feeding via PEG tube Continue with amiodarone and Eliquis Several Consult is on the case including pulmonary, infectious disease, neurologist and general surgery Labs and medication were reviewed.. Continue same treatment. Continue with symptomatic treatment. Resume home medication. Monitor labs and vitals. DVT and GI prophylaxis. Further recommendations as per clinical course of the patient DVT prophylaxis: Eliquis GI Prophylaxis: Ppi PT/OT: Subacute rehab Prognosis is guarded
[2023-03-22] MEDS: IPRATROPIUM-ALBUTEROL 3 ML NEB INHALATION SCH ×3 (09:37→20:15)
[2023-03-22] MEDS: PANTOPRAZOLE 40 MG/10 ML VIAL IVP SCH (09:53)
[2023-03-22] MEDS: APIXABAN 5 MG TAB PO SCH ×2 (09:53→21:16)
[2023-03-22] MEDS: ASCORBIC ACID 500 MG TAB PO SCH (09:53)
[2023-03-22] MEDS: ZINC SULFATE 220 MG CAP PO SCH (09:53)
[2023-03-22] MEDS: CHOLECALCIFEROL 125 MCG (5000 IU) TABLET PO SCH (09:53)
[2023-03-22] MEDS: LACTOBACILLUS ACIDOPHILUS/PECT 1 EACH CAPSULE PO SCH ×3 (09:53→21:16)
[2023-03-22] MEDS: AMIODARONE 200 MG TAB PO SCH ×2 (09:53→21:16)
[2023-03-22] MEDS: polyethylene glycoL 3350 17 GM POWD.PACK PO SCH (09:54)
[2023-03-22] MEDS: AMOXIC-POT CLAV 875-125MG 1 EACH TAB PEG/G-TUBE SCH ×2 (09:54→21:16)
[2023-03-22] MEDS: FLUCONAZOLE 100 MG TAB PO SCH (09:54)
[2023-03-22 12:00] LABS: Glucose,Whole Blood 100 mg/dL (70-110)
--- NOTE | 2023-03-22 12:17 | P.PN ---
Subjective Progress Note Date: 03/22/23 Principal diagnosis: Sepsis and mental status change, West Nile virus encephalitis, aspiration pneumonia I am seeing this patient in new consultation today 02/24/2023 after the patient presented to the ER yesterday evening with concerns of altered mental status. Patient is a 77-year-old white male with a limited past medical history. Apparently, the patient's found him down on the ground early yesterday morning confused. His last known well time was the night prior. Nonenhanced brain CT on arrival shows age-related atrophic and chronic small vessel ischemia without any obvious acute cranial process. Initial chest x-ray on arrival showed fullness around the right hilum likely related patient rotation. Underlying infiltrate or mass not excluded. CBC shows leukocytosis with a WBC count of 16, hemoglobin 13.5, hematocrit 39.1, platelets 109,000. BMP shows sod ium 136, potassium 3.7, chloride 110, serum bicarb 17, BUN 36, creatinine 1.22, glucose 102. LFTs are mildly elevated. Troponins are 1.66 and 1.9. Urinalysis not particularly concerning for UTI. Negative for influenza, RSV, COVID-19. Patient was originally admitted to the floor, and was transferred to the ICU last night for tachycardia and hypotension. Yesterday, he was given a total of 2.5 L normal saline bolus. On my evaluation, the patient is lying in bed, extremities are rigid, he is febrile with a t-max of 103 F. He is on 2 L/m nasal cannula, oxygenating around 94%. He is disoriented and unable to provide any meaningful information. He mostly mumbles. I did speak to the patient's daughter, who denies any recent sinus, ear, or pulmonary infections. I am concerned for possible encephalitis or meningitis. I spoke with neurology last night, and updated them on the patient. There is an EEG pending for the morning. Patient is empirically covered with combination of ampicillin, vancomycin, and Rocephin. Infectious disease consult was also placed. Heart rhythm is currently normal sinus on bedside monitor. Blood pressure is normotensive. Normal saline is infusing at 130 ML's per hour. No need for vasopressors at this time. Patient will need a thorough neurological workup. He is being monitored in the intensive care unit in the meantime. On 03/13/2023, no change in neurologic functions and the patient remains in the same neurologic status. He continues to receive enteral feeding for nutritional support via an NG tube. The patient will need a PEG tube and this has been tentatively scheduled to be done on 03/16/2023. Anticoagulation will placed on hold for now. No other complaints. No signs of any respiratory distress. The blood work shows a BUN of 36 with a creatinine of 0.7. The white cell count 15.4 with a hemoglobin of 13 and a platelet count of 218. Blood sugars at 219. The patient will be having a PEG tube insertion for enteral feeding and nu tritional support. 03/14/2023, the patient is being seen for a follow-up in the intensive care unit . Events from overnight was noted. The patient had massive aspiration. Apparently the NG tube got misplaced and the patient was having enteral feeding into his lungs. He became acutely short of breath, he went into respiratory distress. He was placed on 100% nonrebreather facemask. He was tried on a BiPAP which she failed and ultimately had to be intubated and placed on a mechanical ventilator. Post intubation, the patient became quite hypotensive. He received a total of 2.5 L of IV fluid and currently he is on normal saline running at the rate of 150 mL an hour. He is sedated with propofol at 25 mcg/kg/m. He is on a mechanical ventilator assist control mode with a rate of 28, tidal volume of 500, FiO2 of 50% with a PEEP of 5. An arterial line was inserted. He will also need a central line. 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 His chest x-ray immediately post aspiration showed some new infiltrates in his right upper lobe. NG tube has been removed. The patient has a orogastric tube in place for now. The patient is currently on IV Zosyn. The chest x-ray reveals new bilateral pulmonary infiltrates more so in the upper lobes. Lung bases are at this period. Orogastric tube is in the stomach. The white cell count is at 36.4, with a hemoglobin of 11.8 and a platelet count of 278. BUN is 46 with a creatinine of 1.08 and sodium levels of 137. Glucose at 128. Urine output is in order of 20 mL an hour. He is currently afebrile. 03/14/2023, the patient is being seen for a follow-up. Remains intubated on a mechanical ventilator. Earlier this morning, he was taken off the pressors and he is currently hemodynamically stable. At the same time, he had an issue with a SVT yesterday. He was given amiodarone and he was bolused and currently is on a maintenance of 0.5 mg/m. His cardiac rhythm is back into sinus rhythm. He remains on propofol which is running at 30 mcg/kg/m. He remains on a mechanical ventilator, assist control mode at the rate of 28, tidal volume of 500, FiO2 of 50% with a PEEP of 5. Blood gas shows improvement in oxygenation with a pH of 7.44 and a pO2 of 174 and a pCO2 of 30. White cell count is down to 12.8. Hemoglobin is at 10.4 and a platelet count is at 199. BUN is at 29 with a creatinine of 0.6 and the sodium levels is 137. Chest x-ray from yesterday shows limited bibasilar and right sided infiltrate. Orotracheal tube is in a good location. He has a left-sided triple-lumen catheter in place. Adequate urine output. Response to painful stimulation. His encephalopathic due to his underlying West Nile virus encephalitis. Pro-calcitonin level was at 4.25 indicating sepsis. The patient was aggressively resuscitated with IV fluids. IV fluids are currently running with normal saline at rate of 150 mL an hour. As mentioned, he is off pressors. Patient was seen and examined today on 03/16/2023, patient remains in the ICU, intubated and mechanically he is on assist control rate of 28 tidal volume 500 FiO2 of 50% and PEEP is 5. ABG showed a pO2 of 167 pCO2 of 33 pH of 7.44. Ches t x-ray continues to show evidence of minimal bibasilar infiltrates, right more so than left. His vent settings were changed I cut him down to a rate of 22 and I cut down the FiO2 to 40% instead of 50%, patient remains on propofol at 40 mcg/kg/m of the fluid 0.9 normal saline at 75 mL/h he remains nothing by mouth, nasogastric tube is in place, urine output seems to be excellent. Patient remains on Zosyn for presumptive aspiration pneumonia. Patient is scheduled to have a PEG tube placed today. Obviously the patient is not quite ready for weaning and extubation, however I do plan to consider start weaning trials in the next 24 hours. WBC count is 8.1 hemoglobin is 9.9 electrolytes are normal renal profile is normal Patient was reevaluated today on 03/17/2023, patient underwent uneventful placement of a PEG tube yesterday. However today he remains intubated and mechanically ventilated he is on assist control rate of 22 to volume 500 FiO2 40% and PEEP of 5 ABG showed a pO2 of 105 pCO2 34 pH 7.47. Patient remains on propofol at 10 mcg/kg/m IV fluid at 75 mL per hour and amiodarone 0.5 mg/m. Patient was also on diltiazem, and he is on Zosyn for antibiotics/aspiration pneumonia. CBC showed WBC count of 7.5 hemoglobin 9.7 electrodes are normal renal profile is normal chest x-ray showed bibasilar opacity/minimal infiltrate/atelectasis. Patient was reevaluated today on 03/18/2023, patient was successfully extubated yesterday. He also had a PEG tube placed the day before, and he is receiving nutritional support and medications via PEG tube. Patient is awake today, aler t, but nonetheless slow and intermittently confused. He is not in any distress, patient is on room air. He is receiving vital AF at 55 mL per hour via PEG tube, patient remains on Zosyn empirically for aspiration pneumonia. WBC count today is 9.3 hemoglobin is 9.9. Basic metabolic profile is normal and his liver enzymes are normal. I will transfer the patient out of the ICU to a medical floor, cardiac floor. Reevaluated today on 03/19/2023, patient remains in the ICU as an overflow. He is on room air, arousable, follows instructions, speech remains garbled and the patient is oriented to place and to time. He knew the year and he knew where he was, speech again is garbled his IV fluids at KVO he is tolerating feeding via PEG tube. And we are still in the process of getting the patient to possibly go to [facility] rehab. Apparently the patient sustained some encephalopathy which is improving from his West Nile virus encephalitis. WBC count is 10 hemoglobin is 10.6 basic metabolic profile is normal and renal profile is normal Reevaluated today on 03/20/2023, patient remains in the ICU basically about the same. Not much of a change occurred in the last 24 hours. Remains on room air, his mental status continues to wax and wane his speech remains garbled but overall not much of a change in the last few days. Patient is tolerating enteral feeding via PEG tube and overall, the plan is to eventually send the patient to rehab. Or ECF CBC today is relatively normal basic metabolic profile is normal renal profile is normal liver profile is relatively normal on 03/21/2023, patient remains in the ICU, basically asymptomatic, again his mental status is waxing and waning, his speech remains garbled but overall today he seems to be better than his previous days. Patient seems to be in a good mood, he is oriented to place and to year, we are still working on possibly transferring the patient to ECF if possible. He is on room air, he remains on vital AF at 85 mL per hour. He is not requiring any pressors. Reevaluated today 03/22/2023 remains in the ICU mostly in overflow. Patient is about the same, he is on room air, still receiving enteral feeding vital AF at 85 mL per hour via PEG tube his IV fluids at KVO he remains on Augmentin, and a course, and on amiodarone. Still working on plans to transfer the patient to a rehab facility/ECF. No labs drawn today except blood sugar of 100. Objective - Vital Signs Vital signs: Vital Signs Temp 98.6 F 03/22/23 08:00 Pulse 68 03/22/23 08:00 Resp 20 03/22/23 08:00 BP 125/70 03/22/23 08:00 Pulse Ox 96 03/22/23 08:00 FiO2 40 03/17/23 10:28 Intake & Output 03/21/23 03/22/23 03/22/23 18:59 06:59 18:59 Intake Total 935 1350 Output Total 1650 1205 Balance -715 145 Weight 93.8 kg Intake: IV 240 Sodium Chloride 0.9% 500 240 ml 500 ml @ 20 mls/hr IV .Q24H [facility] Rx#:[id number] Tube Feeding 935 1020 Other 90 Output: Urine 1650 1205 Other: Voiding Method Indwelling Catheter Indwelling Catheter Indwelling Catheter ABP, PAP, CO, CI - Last Documented Arterial Blood Pressure 119/43 - Exam GENERAL EXAM: Revealed a 77-year-old white male on room air, not in distress. On room air HEAD: Normocephalic and atraumatic EYES: Normal reaction of pupils, equal size. NOSE: Clear with pink turbinates. THROAT: No erythema or exudates. NECK: No masses, no JVD. CHEST: No chest wall deformity. LUNGS: Minimal crackles at the bases. CVS: S1 and S2 normal with no audible murmur, regular rhythm. No extra heart sounds ABDOMEN: Obese soft nontender no megaly no rebound no guarding, PEG tube is intact. SKIN: No rashes CENTRAL NERVOUS SYSTEM: Awake, follows instructions, speech remains quite garbled. EXTREMITIES: No edema, no clubbing, no cyanosis. Pulses bilaterally - Labs CBC & Chem 7: 03/20/23 05:32 03/20/23 05:32 Labs: Abnormal Lab Results - Last 24 Hours (Table) 03/21/23 Range/Units 12:12 POC Glucose (mg/dL) 116 H (70-110) mg/dL Assessment and Plan Assessment: Impression: Acute hypoxic respiratory failure mostly secondary to aspiration pneumonia, extubated on 03/17/2023 Acute aspiration pneumonia Acute West Nile virus encephalitis with mental status change on presentation Altered mental status, secondary to above Acute febrile illness and sepsis aspiration pneumonia. Acute rhabdomyolysis, resolved. Elevated troponins, possibly related to supply/demand mismatch Episodic episodes of atrial fibrillation/SVT, on amiodarone. Via PEG tube. Status post PEG tube placement, 03/16/20 Recommendation: Continue present supportive care measures Continue to work on potential transfer to [facility] Continue Augmentin for now for aspiration pneumonia and discontinued at the time of discharge Continue nutritional support/enteral feeding via PEG tube Continue GI and DVT prophylaxis. Continue physical therapy Patient will definitely need outpatient rehab we will continue to follow. Time with Patient: Less than 30
--- NOTE | 2023-03-22 14:12 | P.PN ---
Subjective Progress Note Date: 03/22/23 CHIEF COMPLAINT: Protein malnutrition HISTORY OF PRESENT ILLNESS: The patient is a 77-year-old male status post PEG tube placement. On tube feeds at 85 mL/hr. In the ICU. No overnight events. Tolerating feeds. ROS: No fevers or chills. No new chest pain. PHYSICAL EXAM: VITAL SIGNS: Reviewed CONSTITUTIONAL: Well developed and in no acute distress. EYES: Conjuctivae without sclera icterus. Extraocular movements grossly intact. HEAD, EARS, NOSE, THROAT: Moist buccal mucosa. Head is atraumatic, normocephalic. RESPIRATORY: Non-labored respirations and equal bilateral excursions. CARDIOVASCULAR: Palpable 2+ radial pulses. ABDOMEN: Gastrostomy tube intact. MUSCULOSKELETAL: No gross deformity of the lower extremities noted. No clubbing. No cyanosis. SKIN: Good skin turgor. Well perfused. NEUROLOGIC: Cranial nerves II through XII grossly intact. No focal or lateralizing signs. PSYCH: Appropriate affect. CLINICAL LABS: Reviewed. Hemoglobin 10.9 from 03/20 ASSESSMENT: 1. Protein malnutrition 2. Anemia PLAN: 1. Stable for discharge from general surgery standpoint when medically stable Objective - Vital Signs Vital signs: Vital Signs Temp 98.4 F 03/22/23 12:00 Pulse 79 03/22/23 12:00 Resp 22 03/22/23 12:00 BP 137/74 03/22/23 12:00 Pulse Ox 95 03/22/23 12:00 FiO2 40 03/17/23 10:28 Intake & Output 03/21/23 03/22/23 03/22/23 18:59 06:59 18:59 Intake Total 935 1350 340 Output Total 1650 1205 1000 Balance -715 145 -660 Weight 93.8 kg Intake: IV 240 0 Sodium Chloride 0.9% 500 240 0 ml 500 ml @ 20 mls/hr IV .Q24H [facility] Rx#:[id number] Tube Feeding 935 1020 340 Other 90 Output: Urine 1650 1205 1000 Other: Voiding Method Indwelling Catheter Indwelling Catheter Indwelling Catheter ABP, PAP, CO, CI - Last Documented Arterial Blood Pressure 119/43 - Labs CBC & Chem 7: 03/20/23 05:32 03/20/23 05:32
[2023-03-22] MEDS: METOPROLOL TARTRATE 50 MG TAB PO SCH (16:26)
--- NOTE | 2023-03-22 18:07 | P.PN ---
Subjective Progress Note Date: 03/21/23 Principal diagnosis: Fever Patient is a 77-year-old male presenting to the hospital y after the patient was found to be unresponsive by the , patient has been febrile initial testing negative including LP which was only mildly elevated protein. Patient did have a episode of vomiting followed by worsening of his respiratory status initially on BiPAP subsequently ended up getting intubated sheet turner of 03/14/2023 On today's evaluation that is 03/21/2023, the patient is afebrile the patient is breathing comfortably on Room air, the patient denies chest pain or cough, patient denies abdominal pain and no nausea/vomiting or diarrhea reported patient labs reviewed Objective - Vital Signs Vital signs: Vital Signs Temp 98.0 F 03/21/23 08:00 Pulse 70 03/21/23 09:02 Resp 22 03/21/23 08:00 BP 134/84 03/21/23 08:00 Pulse Ox 95 03/21/23 08:00 FiO2 40 03/17/23 10:28 Intake & Output 03/20/23 03/21/23 03/21/23 18:59 06:59 18:59 Intake Total 1365 1455 Output Total 1210 1775 Balance 155 -320 Weight 91.8 kg Intake: IV 260 260 Sodium Chloride 0.9% 500 260 260 ml 500 ml @ 20 mls/hr IV .Q24H [facility] Rx#:[id number] Tube Feeding 1105 1105 Other 90 Output: Urine 1210 1775 Other: Voiding Method Indwelling Catheter Indwelling Catheter Indwelling Catheter ABP, PAP, CO, CI - Last Documented Arterial Blood Pressure 119/43 - Exam GENERAL DESCRIPTION: An elderly male lying in bed in no distress RESPIRATORY SYSTEM: Unlabored breathing , coarse breath sounds bilaterally HEART: S1 S2 regular rate and rhythm , ABDOMEN: Soft , no tenderness EXTREMITIES: No edema feet - Labs CBC & Chem 7: 03/20/23 05:32 03/20/23 05:32 Labs: Abnormal Lab Results - Last 24 Hours (Table) 03/20/23 03/20/23 03/20/23 Range/Units 05:32 17:35 23:45 POC Glucose (mg/dL) 119 H 112 H (70-110) mg/dL Creatine Kinase 54 L (55-170) U/L 03/21/23 Range/Units 05:58 POC Glucose (mg/dL) 117 H (70-110) mg/dL Creatine Kinase (55-170) U/L Assessment and Plan (1) Fever Current Visit: Yes Status: Acute Code(s): R50.9 - FEVER, UNSPECIFIED SNOMED Code(s): 869079766 (2) Pneumonia Current Visit: Yes Status: Acute Code(s): J18.9 - PNEUMONIA, UNSPECIFIED ORGANISM SNOMED Code(s): 287454844 (3) West Nile Virus infection Current Visit: Yes Status: Acute Code(s): A92.30 - WEST NILE VIRUS INFECTION, UNSPECIFIED SNOMED Code(s): 126282083 Plan: 1patient with encephalitis/meningitis ,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, the treatment is mostly supportive, there is some role for immunoglobulin infusion which the patient has already received 2-episode of vomiting aspiration and acute respiratory failure requiring intubation--, patient with likely aspiration pneumonia, blood and sputum culture currently pending patient white count has normalized 3-patient has shown clinical improvement the patient is afebrile white count has normalized, we will continue with a short course of Augmentin to finish his therapy Dictation was produced using [employer] dictation software. please excuse any grammatical, word or spelling errors.
[2023-03-22 18:10] LABS: Glucose,Whole Blood 109 mg/dL (70-110)
--- NOTE | 2023-03-22 18:11 | P.PN ---
Subjective Progress Note Date: 03/22/23 Principal diagnosis: Fever Patient is a 77-year-old male presenting to the hospital y after the patient was found to be unresponsive by the , patient has been febrile initial testing negative including LP which was only mildly elevated protein. Patient did have a episode of vomiting followed by worsening of his respiratory status initially on BiPAP subsequently ended up getting intubated pneumatic tester of 03/14/2023 On today's evaluation that is 03/22/2023, the patient denies any fever or chills , the patient is breathing comfortably without need for supplemental oxygen, the patient denies chest pain or worsening cough/sputum production, patient denies nausea/vomiting , abdominal pain and no diarrhea reported No lab draw today Objective - Vital Signs Vital signs: Vital Signs Temp 98.4 F 03/22/23 16:00 Pulse 75 03/22/23 16:00 Resp 20 03/22/23 16:00 BP 132/71 03/22/23 16:00 Pulse Ox 98 03/22/23 16:00 FiO2 40 03/17/23 10:28 Intake & Output 03/21/23 03/22/23 03/22/23 18:59 06:59 18:59 Intake Total 935 1350 340 Output Total 1650 1205 1000 Balance -715 145 -660 Weight 93.8 kg Intake: IV 240 0 Sodium Chloride 0.9% 500 240 0 ml 500 ml @ 20 mls/hr IV .Q24H [facility] Rx#:[id number] Tube Feeding 935 1020 340 Other 90 Output: Urine 1650 1205 1000 Other: Voiding Method Indwelling Catheter Indwelling Catheter Indwelling Catheter ABP, PAP, CO, CI - Last Documented Arterial Blood Pressure 119/43 - Exam GENERAL DESCRIPTION: An elderly male lying in bed in no distress RESPIRATORY SYSTEM: Unlabored breathing , coarse breath sounds bilaterally HEART: S1 S2 regular rate and rhythm , ABDOMEN: Soft , no tenderness EXTREMITIES: No edema feet - Labs CBC & Chem 7: 03/20/23 05:32 03/20/23 05:32 Assessment and Plan (1) Fever Current Visit: Yes Status: Acute Code(s): R50.9 - FEVER, UNSPECIFIED SNOMED Code(s): 987660911 (2) Pneumonia Current Visit: Yes Status: Acute Code(s): J18.9 - PNEUMONIA, UNSPECIFIED ORGANISM SNOMED Code(s): 511721487 (3) West Nile Virus infection Current Visit: Yes Status: Acute Code(s): A92.30 - WEST NILE VIRUS INFECTION, UNSPECIFIED SNOMED Code(s): 935512287 Plan: 1patient with encephalitis/meningitis ,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, the treatment is mostly supportive, there is some role for immunoglobulin infusion which the patient has already received 2-episode of vomiting aspiration and acute respiratory failure requiring intubation--, patient with likely aspiration pneumonia, blood and sputum culture currently negative 3-patient has shown clinical improvement the patient is afebrile white count has normalized, we will continue with Augmentin to finish his course of therapy family at bed side questions were answered Dictation was produced using [email or web address] dictation software. please excuse any grammatical, word or spelling errors. Time with Patient: Less than 30
[2023-03-22] MEDS: SODIUM CHLORIDE 0.9% 500 ML 500 ML IV SCH (21:14)
[2023-03-22] MEDS: MELATONIN 5 MG TABLET PO SCH (23:23)
[2023-03-23 00:27] LABS: Glucose,Whole Blood 123 mg/dL (70-110)
[2023-03-23 06:10] LABS: Glucose,Whole Blood 107 mg/dL (70-110)
[2023-03-23] MEDS: IPRATROPIUM-ALBUTEROL 3 ML NEB INHALATION SCH ×3 (08:02→21:06)
[2023-03-23 11:52] LABS: Glucose,Whole Blood 110 mg/dL (70-110)
[2023-03-23] MEDS: APIXABAN 5 MG TAB PO SCH ×2 (12:14→21:08)
[2023-03-23] MEDS: CHOLECALCIFEROL 125 MCG (5000 IU) TABLET PO SCH (12:14)
[2023-03-23] MEDS: LACTOBACILLUS ACIDOPHILUS/PECT 1 EACH CAPSULE PO SCH ×3 (12:14→22:54)
[2023-03-23] MEDS: AMIODARONE 200 MG TAB PO SCH ×2 (12:14→21:08)
[2023-03-23] MEDS: polyethylene glycoL 3350 17 GM POWD.PACK PO SCH (12:15)
[2023-03-23] MEDS: FLUCONAZOLE 100 MG TAB PO SCH (12:15)
[2023-03-23] MEDS: ASCORBIC ACID 500 MG TAB PO SCH (12:15)
[2023-03-23] MEDS: AMOXIC-POT CLAV 875-125MG 1 EACH TAB PEG/G-TUBE SCH ×2 (12:15→21:12)
[2023-03-23] MEDS: ZINC SULFATE 220 MG CAP PO SCH (12:15)
[2023-03-23] MEDS: PANTOPRAZOLE 40 MG/10 ML VIAL IVP SCH (12:17)
--- NOTE | 2023-03-23 13:27 | P.PN ---
Subjective Covering for Dr. Holman over the weekend This is a 77-year-old male who presented to the ER with concerns of altered mental status. His had found him on the ground prior to coming to the ER. He was placed in ICU, has had tachycardia with hypotension. He also continues to have intermittent fevers. Workup for bacterial meningitis was negative. EEG was negative for seizure activity. Further workup still in progress. Patient still has a white count today. He is seen laying in bed in the ICU this morning, in no acute distress. Patient was found to have sepsis with respiration pneumonia and hypoxia, he required mechanical ventilation for a while but currently his been extubated. He responded well to antibiotics and currently he is on oral Augmentin and Diflucan. 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 Patient with patient is improving over the last 2 days and his hospital course completed by dysphagia status post PEG tube placement on 03/16. 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 fib with RVR with currently heart rate is controlled while on amiodarone 400 mg and eliquis 5 mg 03/22/2023 Patient is sleeping comfortable in bed. Denies any specific complaints. No chest pain or dyspnea. Hemodynamically stable. Patient remains on Augmentin for Diflucan, he is also on Eliquis 5 mg 03/23/2023 Patient clinically looks the same and stable. He is generally fatigued and tire d. Denies specific complaints. He has occasional weak cough. Denies pain. Hemodynamically stable. No labs. Speech evaluation done today showing:Dysphagia II (ground) texture diet (d/t fatigue and intermittent confusion) with thin liquids, straws ok, meds whole in puree, 1:1 feed, aspiration precations. Patient currently on Augmentin, and Olympus 5 mg Objective - Vital Signs Vital signs: Vital Signs Temp 98.1 F 03/23/23 08:00 Pulse 78 03/23/23 08:23 Resp 21 03/23/23 08:00 BP 134/75 03/23/23 08:00 Pulse Ox 96 03/23/23 08:00 FiO2 40 03/17/23 10:28 Intake & Output 03/22/23 03/23/23 03/23/23 18:59 06:59 18:59 Intake Total 340 1020 Output Total 1000 1000 500 Balance -660 -1000 520 Weight 90.1 kg 90.1 kg Intake: IV 0 Sodium Chloride 0.9% 500 0 ml 500 ml @ 20 mls/hr IV .Q24H [facility] Rx#:[id number] Tube Feeding 340 1020 Output: Urine 1000 1000 500 Other: Voiding Method Indwelling Catheter Indwelling Catheter Indwelling Catheter ABP, PAP, CO, CI - Last Documented Arterial Blood Pressure 119/43 - Exam -GENERAL: The patient is alert and oriented x2-3, mildly confused but follows commands, not in any acute distress. Well developed, well nourished. HEENT: Pupils are round and equally reacting to light. EOMI. No scleral icterus. No conjunctival pallor. Normocephalic, atraumatic. No pharyngeal erythema. No thyromegaly. CARDIOVASCULAR: S1 and S2 present. No murmurs, rubs, or gallops. PULMONARY: Chest is clear to auscultation, no wheezing , no crackles. -ABDOMEN: Soft, nontender, nondistended, normoactive bowel sounds. No palpable organomegaly. PEG tube in place MUSCULOSKELETAL: No joint swelling or deformity. EXTREMITIES: No cyanosis, clubbing, or pedal edema. NEUROLOGICAL: Gross neurological examination did not reveal any focal deficits. SKIN: No rashes. no petechiae. - Labs CBC & Chem 7: 03/20/23 05:32 03/20/23 05:32 Labs: Abnormal Lab Results - Last 24 Hours (Table) 03/23/23 Range/Units 00:25 POC Glucose (mg/dL) 123 H (70-110) mg/dL Assessment and Plan Assessment: Aspiration pneumonia Hypoxia, improved West Nile encephalitis, improved This patient status post PEG tube placement Metabolic encephalopathy, currently improved Altered mental status secondary to both improved Generalized weakness Paroxysmal atrial fibrillation on blood thinner. Plan: Continue with Augmentin and Diflucan Continue with the tube feeding via PEG tube Continue with amiodarone and Eliquis Several Consult is on the case including pulmonary, infectious disease, neurologist and general surgery Labs and medication were reviewed.. Continue same treatment. Continue with symptomatic treatment. Resume home medication. Monitor labs and vitals. DVT and GI prophylaxis. Further recommendations as per clinical course of the patient DVT prophylaxis: Eliquis GI Prophylaxis: Ppi PT/OT: Subacute rehab Prognosis is guarded
--- NOTE | 2023-03-23 13:44 | P.PN ---
Subjective Progress Note Date: 03/23/23 The patient is seen today 03/23/2023 in follow-up in the intensive care unit. He has a regular medical floor overflow. He was extubated on 03/17/2023. He is improved and on room air. 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 He is more awake and alert each day. Following some simple commands. Still very weak and debilitated. He has had issues with atrial fibrillation with rapid ventricular response. He is currently on oral amiodarone. He is currently in sinus rhythm. He's been afebrile. Hemodynamically stable. Glucose 110. He remains on DuoNeb inhalations. Antibiotics in the form of Augmentin. Anticoagulated with Eliquis. He is tolerating a dysphagia level II ground diet. He remains on one-to-one supervision. He remains an aspiration precautions. PEG tube remains in place. Objective - Vital Signs Vital signs: Vital Signs Temp 98.1 F 03/23/23 08:00 Pulse 78 03/23/23 08:23 Resp 21 03/23/23 08:00 BP 134/75 03/23/23 08:00 Pulse Ox 96 03/23/23 08:00 FiO2 40 03/17/23 10:28 Intake & Output 03/22/23 03/23/23 03/23/23 18:59 06:59 18:59 Intake Total 340 1020 Output Total 1000 1000 500 Balance -660 -1000 520 Weight 90.1 kg 90.1 kg Intake: IV 0 Sodium Chloride 0.9% 500 0 ml 500 ml @ 20 mls/hr IV .Q24H [facility] Rx#:[id number] Tube Feeding 340 1020 Output: Urine 1000 1000 500 Other: Voiding Method Indwelling Catheter Indwelling Catheter Indwelling Catheter ABP, PAP, CO, CI - Last Documented Arterial Blood Pressure 119/43 - Exam GENERAL EXAM: Alert 77-year-old male, more awake today, improving speech, on room air, comfortable in no apparent distress. HEAD: Normocephalic. EYES: Normal reaction of pupils, equal size. NOSE: Nasogastric tube secured in place. Clear with pink turbinates. THROAT: No erythema or exudates. NECK: No masses, no JVD. CHEST: No chest wall deformity. LUNGS: Equal air entry with few scattered rhonchi. CVS: S1 and S2 normal with no audible murmur, irregular rhythm. ABDOMEN: No hepatosplenomegaly, normal bowel sounds, no guarding or rigidity. SPINE: No scoliosis or deformity SKIN: No rashes CENTRAL NERVOUS SYSTEM: Slow to respond, garbled speech. Tone is normal in all 4 extremities. EXTREMITIES: There is no peripheral edema. No clubbing, no cyanosis. Peripheral pulses are intact. - Labs CBC & Chem 7: 03/20/23 05:32 03/20/23 05:32 Labs: Abnormal Lab Results - Last 24 Hours (Table) 03/23/23 Range/Units 00:25 POC Glucose (mg/dL) 123 H (70-110) mg/dL Assessment and Plan Assessment: Encephalopathy, secondary to the West Nile virus. Initiated on IVIG 3 doses Acute febrile illness and sepsis, no obvious infectious process identified yet, all cultures have been negative so far. Leukocytosis, resolved, possible aspiration pneumonia. Currently on Zosyn, procalcitonin 0.31. Follow-up pro-calcitonin 0.07. Acute rhabdomyolysis, significantly elevated CPK, improving with hydration, CPK is down to 719 Elevated LFTs, ultrasound showed hepatomegaly Elevated troponins, possibly related to supply/demand mismatch Atrial fibrillation with rapid ventricular response requiring Cardizem, heparin drip. Transitioned to oral amiodarone and Eliquis currently in sinus rhythm Plan: The patient was seen and evaluated Labs and medications reviewed Remains stable and on room air Did well with the swallow evaluation today May start dysphagia II ground diet 1-1 supervision Continue aspiration precautions Plan is for subacute rehab upon discharge We will continue to follow I have personally seen and examined the patient, performed the documentation and the assessment and plan as written. Number of minutes spent on the visit: 10.
--- NOTE | 2023-03-23 14:03 | P.PN ---
Subjective Progress Note Date: 03/23/23 CHIEF COMPLAINT: Altered mental status HISTORY OF PRESENT ILLNESS: Patient status post PEG tube placement on 03/16/23. Patient is tolerating tube feeds. Tube feeds currently at a 85 mL per hour. Denies abdominal pain. He is having bowel movements. Patient passed swallow eval today and is starting a dysphagia ground diet PHYSICAL EXAM: VITAL SIGNS: Reviewed. GENERAL: no acute distress. ABDOMEN: Soft. Nondistended. PEG tube site clean dry and intact NEUROLOGIC: Intubated ASSESSMENT: 1. Dysphagia 2. Mild protein calorie malnutrition 3. Failed swallow eval 4. West Nile virus encephalitis PLAN: -Starting dysphagia ground diet -Tube feeds per dietitian -Continue supportive care Physician Gas Burner Operator note has been reviewed by physician. Signing provider agrees with the documented findings, assessment, and plan of care. Objective - Vital Signs Vital signs: Vital Signs Temp 98.1 F 03/23/23 08:00 Pulse 78 03/23/23 08:23 Resp 21 03/23/23 08:00 BP 134/75 03/23/23 08:00 Pulse Ox 96 03/23/23 08:00 FiO2 40 03/17/23 10:28 Intake & Output 03/22/23 03/23/23 03/23/23 18:59 06:59 18:59 Intake Total 340 1020 Output Total 1000 1000 500 Balance -660 -1000 520 Weight 90.1 kg 90.1 kg Intake: IV 0 Sodium Chloride 0.9% 500 0 ml 500 ml @ 20 mls/hr IV .Q24H [facility] Rx#:[id number] Tube Feeding 340 1020 Output: Urine 1000 1000 500 Other: Voiding Method Indwelling Catheter Indwelling Catheter Indwelling Catheter ABP, PAP, CO, CI - Last Documented Arterial Blood Pressure 119/43 - Labs CBC & Chem 7: 03/20/23 05:32 03/20/23 05:32 Labs: Abnormal Lab Results - Last 24 Hours (Table) 03/23/23 Range/Units 00:25 POC Glucose (mg/dL) 123 H (70-110) mg/dL
--- NOTE | 2023-03-23 14:08 | P.PN ---
Subjective Progress Note Date: 03/23/23 Principal diagnosis: West Nile virus encephalopathy, pneumonia, sepsis, sepsis shock Mr. Avelar is a 77 y.o., right handed, male, who lives in a 2 story home, with 8 KRYSTIN. Prior to admission, he was ambulating without an assistive device. He was independent for basic/advanced ADLs. Current driving: yes. Retired: yes. Support system: , Family He was admitted to [facility] on 02/23. He presented to the ED via EMS with change in mental status. Patient was found on the ground the morning of arrival by his . In the EC his white count was elevated, lactic acid of 4, elevated troponin. Tested negative for influenza type a and B, RSV and COVID. Chest x-ray showed possible pneumonia. Blood cultures were collected which were negative, IV antibiotics were ordered. UA was collected and was negative. Urine culture was negative. CT of the brain showed nothing acute. patient was admitted to the ICU with pneumonia and sepsis/septic shock. Consults to cardiology, neurology and infectious disease were placed. Patient was also seen by pulmonology who had concerns for possible meningitis and West Nile virus. Patient had a work-up for meningitis including lumbar puncture which was ruled out. Eventually the West Nile virus panel came back positive. There was also concern for seizure like activity in the hospital, EEG was ordered. EEG revealed findings suggestive of encephalopathy with no indication of seizures. Patient had an ultrasound of the abdomen and pelvis completed due to elevated LFTs which showed sludge in the gallbladder with hepatomegaly, otherwise it was a limited exam. Hepatitis panel was negative. During his hospital stay he also had an episode of atrial fibrillation with RVR was started on Cardizem and heparin drip. He failed a swallow study and had an NG tube inserted for feeding. 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 Orthopedic was consulted and determined that the cervical changes were likely chronic in nature no acute emergent/urgent changes of the cervical spine. 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 PM&R consulted for rehab recommendations. Therapy evaluations reviewed; patient needing total assist for bathing, total assist for UB dressing, no ability to demonstrate LB dressing, total assist for grooming, assist for toileting, assist for bed mobility 03/12/2023:patient was found in bed with HOB elevated and and daughter at bedside. Patient is lethargic, opens eyes momentarily to repeated name calling and light touch. Patient non verbal at this time. He is not able to respond to/answer questions. He appears comfortable. He does not appear to be in pain. Urinary device in place. NG tube in place. Spoke with family and explained re habilitation options at discharge. Explained that in the patients current state he is not a candidate for IPR. Also, explained that we will follow with the patient to assess progress and most fitting rehabilitation plan at discharge. 03/20/2023: Patient had NG tube dislodgment resulting in feedings entering his lungs. Patient was subsequently intubated on 03/14 and extubated on 03/17. He also had issues with SVT which resulted in a amiodarone drip. He did convert back into sinus rhythm. He had a PEG tube placed 03/16. 03/20/23: Patient was found in bed, with head of bed elevated, family at bedside. Neurologist also at bedside who states will sign off case as no further neurological work-up warranted. Patient is awake, alert. No signs of distress noted. Mitchell catheter intact/draining. On room air. Patient converse eating appropriately. Discussed rehabilitation needs with patient and family. Yesterday's evaluations by therapy noted that patient was total assist for bed mobility with no ability to demonstrate other self-care tasks. Anticipate that patient's altered mental status played a role in patient's therapy evaluations. Advised family we will continue to monitor the the patient and progress with therapy and will determine discharge plan when patient is more medically stable and nearing discharge. Therapy evaluations as of 03/20/2023: Total assist for bed mobility, with no ability to demonstrate other self-care abilities. Stand step pivot total assist. 03/23/23: Objective - Vital Signs Vital signs: Vital Signs Temp 98.1 F 03/23/23 08:00 Pulse 78 03/23/23 08:23 Resp 21 03/23/23 08:00 BP 134/75 03/23/23 08:00 Pulse Ox 96 03/23/23 08:00 FiO2 40 03/17/23 10:28 Intake & Output 03/22/23 03/23/23 03/23/23 18:59 06:59 18:59 Intake Total 340 1020 Output Total 1000 1000 500 Balance -660 -1000 520 Weight 90.1 kg 90.1 kg Intake: IV 0 Sodium Chloride 0.9% 500 0 ml 500 ml @ 20 mls/hr IV .Q24H [facility] Rx#:[id number] Tube Feeding 340 1020 Output: Urine 1000 1000 500 Other: Voiding Method Indwelling Catheter Indwelling Catheter Indwelling Catheter ABP, PAP, CO, CI - Last Documented Arterial Blood Pressure 119/43 - Exam EXAM: General: WDWN, male, in bed with HOB elevated, family at bedside, NAD Head: Normocephalic, atraumatic. Eyes: symmetric Ears: Symmetric. 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 Calves supple, non tender, trace bilat LE edema, SCD's in place Lungs: Breathing comfortably on RA. Chest symmetric. Abdomen: Soft, nontender. peg tube in place Extremities: Arthritic changes consistent with age. Neurological: Alert and oriented x 2 (alert to person and place) Speech is clear Cranial nerves: intact Sensation:equal to b/l upper and lower extremities Musculoskeletal: ROM WNL except: bilat shoulder (chronic per family) MMT UE Sh Abd EE EF FABD WE HG Right 3 3+ 3+ 3+ 3+ 4 Left 3 3+ 3+ 3+ 3+ 4 MMT LE HF KE DF EHL Right 3 3+ 3+ 4 Left 3 3+ 3+ 4 Reflexes Biceps Triceps Brachioradialis Patella Achilles Babinski Hoffmans Right 2 2 2 2 Left 2 2 2 2 Skin: Skin intact where visible to head, neck, and bilateral upper and lower ex tremities EXCEPT: PIV, left chest port Psych: Calm, cooperative - Labs CBC & Chem 7: 03/20/23 05:32 03/20/23 05:32 Labs: Abnormal Lab Results - Last 24 Hours (Table) 03/23/23 Range/Units 00:25 POC Glucose (mg/dL) 123 H (70-110) mg/dL Assessment and Plan Assessment: #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, pneumonia, sepsis, sepsis shock #West Nile virus encephalopathy -IVIG x3 doses #Altered mental status secondary to above #Acute respiratory failure secondary to aspiration pneumonia - intubation with mechanical ventilation 03/14 extubated 03/17 -IV antibiotics -03/23/23: augmentin #Gait impairment/decline in ADLs secondary to above #Rule out seizures -EEG suggestive of encephalopathy with no indication of seizures -Patient remains on Keppra -03/20/23: no longer on keppra #Pneumonia -IV antibiotics -03/23/23: augmentin #Elevated troponins secondary to supply/demand mismatch #Rhabdomyolysis -Improving #Elevated LFTs -Hepatitis panel negative, ultrasound showing sludge of the gallbladder and hepatomegaly #Atrial fibrillation with RVR -Rate now controlled on beta-blockers, anticoagulated with Eliquis #s/p SVT -converted #Anxiety -Ativan # Bowel/ Bladder: Nursing to monitor and report concerns if any. -03/12/23: urinary collection system in use # Diet-n.p.o., failed swallow study -s/p peg tube placement -03/23/23:dysphagia II ground diet 1-1 supervision # Skin/wound: Skin/Wound care to follow as needed # Pain Management -Tylenol 650 mg every 4 hours as needed, dilaudid 0.5 mg q 4 hours # DVT Prophylaxis: -Eliquis # Comorbidities: No significant medical history was not on any home medications at time of admission # Your medical dx and mgt Goals: Modified Independent mobility and ADLS both basic and advanced; increased functional mobility/strength; increased balance, safety, endurance. Improvement in medical issues through your care. Barriers: Infection, pain, cognition, lethargy, respiratory status Discharge recommendation: will continue to monitor and assess progress. Patient is total assist with most tasks, he will definitely need rehabilitation at discharge. Likely a good IPR candidate. We will continue to monitor the patients progress and make further determinations at follow-up. Patient seen and examined by Dr. Zacarias Note prepped by Sherly Chong
[2023-03-23] MEDS: METOPROLOL TARTRATE 50 MG TAB PO SCH (17:51)
[2023-03-23] MEDS: SODIUM CHLORIDE 0.9% 500 ML 500 ML IV SCH (17:52)
[2023-03-23 18:06] LABS: Glucose,Whole Blood 115 mg/dL (70-110)
[2023-03-23] MEDS: MELATONIN 5 MG TABLET PO SCH (21:08)
[2023-03-24 00:33] LABS: Glucose,Whole Blood 112 mg/dL (70-110)
[2023-03-24 06:10] LABS: Glucose,Whole Blood 86 mg/dL (70-110)
[2023-03-24] MEDS: IPRATROPIUM-ALBUTEROL 3 ML NEB INHALATION SCH ×3 (09:45→20:30)
[2023-03-24] MEDS: CHOLECALCIFEROL 125 MCG (5000 IU) TABLET PO SCH (10:06)
[2023-03-24] MEDS: PANTOPRAZOLE 40 MG/10 ML VIAL IVP SCH (10:06)
[2023-03-24] MEDS: FLUCONAZOLE 100 MG TAB PO SCH (10:07)
[2023-03-24] MEDS: ASCORBIC ACID 500 MG TAB PO SCH (10:07)
[2023-03-24] MEDS: LACTOBACILLUS ACIDOPHILUS/PECT 1 EACH CAPSULE PO SCH ×3 (10:07→20:05)
[2023-03-24] MEDS: AMIODARONE 200 MG TAB PO SCH ×2 (10:07→20:05)
[2023-03-24] MEDS: ZINC SULFATE 220 MG CAP PO SCH (10:07)
[2023-03-24] MEDS: APIXABAN 5 MG TAB PO SCH ×2 (10:07→20:05)
[2023-03-24] MEDS: AMOXIC-POT CLAV 875-125MG 1 EACH TAB PEG/G-TUBE SCH ×2 (10:08→20:05)
[2023-03-24] MEDS: polyethylene glycoL 3350 17 GM POWD.PACK PO SCH (10:09)
--- NOTE | 2023-03-24 10:10 | P.PN ---
Subjective Progress Note Date: 03/23/23 03/23/2023: Patient was seen for a follow-up. Over last 7 days, patient was followed up by Dr. Lopez. Please refer to his notes for detail. Patient's two sons were present today. They mentioned that patient was extubated on 03/16/2023. He had undergone PEG placement. Patient then he came out of anesthesia for PEG tube, started talking. He is talking much better, as per examination below. He appears very comfortable. 03/14/2023: Patient was seen for a follow-up. Patient apparently turn for the worse. Patient's NG tube partially came out, and he was getting feeds through the NG tube. Patient aspirated. Patient was placed on facemask, and patient vomited and further aspirated. Patient was intubated, and transferred to ICU. Patient started again on Zosyn. Patient is critically sick. Patient is currently on Levophed 0.25 micrograms per kilogram per minute (86.25 mL per hour), propofol 45 mcg/kg per minute, IV fluids. 03/13/2023: Patient was seen for a follow-up. Family members were not present today. Patient is much more alert and awake. He is trying to make some sounds, but unintelligible. His mouth has dried phlegm. Coated tongue and some lips. Patient continues to be severely encephalopathic. 03/12/2023 patient was seen for follow-up. Patient's family members are present. Patient overall remained same. He nods "no" for headache he is slightly more awake since decreasing the dose of Keppra. 03/10/2023: Patient was seen for a follow-up. Patient's family members were present. They mentioned that patient was getting better when the shunt was receiving IV vitamins and been patient received IVIG. They were recommending IV vitamin D, zinc and some other vitamins. I informed that vitamin D excess can produce toxicity. Likewise zinc is typically given orally. Patient clinically not much change. Telemetry monitoring showing sinus rhythm with sinus bradycardia in the 40s, with some PVCs, PACs. Previously had SVT and A. fib. 03/09/2023: Patient was seen for follow-up. Patient's family members are present. Patient over the last 1 week has been followed up by Dr. Jose G Lopez. Please refer to his notes for details. 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 Family members states that patient is not much better. He is talking very minimal. Last week he was trying to talk. However he is not sp eaking much now. Patient apparently also has received 3 days of IVIG. 03/01/2023: Patient was seen for a follow-up. Patient's older daughter, and patient's 2 sons were present today. Patient's daughter believes that he was much more awake earlier today, with eyes were more widely open. He did not talk, but did new walked was around. Looking at the family more obviously. Patient's family has mentioned that patient does work in the yard, cuts his own grass, and on the Day weekend, the event to watch the grandson's football game. He regularly goes out for a walk with his . He may have been exposed to mosquitoes. Patient was fine until Thursday when he stopped talking and presented to the ER. Objective - Vital Signs Vital signs: Vital Signs Temp 98.3 F 03/23/23 14:00 Pulse 78 03/23/23 15:15 Resp 22 03/23/23 14:00 BP 127/80 03/23/23 14:00 Pulse Ox 95 03/23/23 14:00 FiO2 40 03/17/23 10:28 Intake & Output 03/22/23 03/23/23 03/23/23 18:59 06:59 18:59 Intake Total 340 1700 Output Total 1000 1000 1000 Balance -660 -1000 700 Weight 90.1 kg 90.1 kg Intake: IV 0 Sodium Chloride 0.9% 500 0 ml 500 ml @ 20 mls/hr IV .Q24H [facility] Rx#:[id number] Tube Feeding 340 1700 Output: Urine 1000 1000 1000 Other: Voiding Method Indwelling Catheter Indwelling Catheter Indwelling Catheter ABP, PAP, CO, CI - Last Documented Arterial Blood Pressure 119/43 - Exam Patient is almost fully alert and awake. He is pleasant, smiling. Patient states he states that it is the fourth month however he knows the year is 2022 and that he is in [facility]. His speech and language functions are clear. No aphasia or dysarthria. His visual myers are full, face is symmetric. 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 Patient does have chronic pain in his shoulders. He is able to wiggle his legs and feet quite well. More detailed examination deferred. 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 * Status post aspiration pneumonia, respiratory distress, status post intubation , now extubated 03/26/2023. * Acute metabolic encephalopathy likely from severe pneumonia and West Nile virus. * SIRS, pneumonia * Acute rhabdomyolysis, resolving, most recent CK 719. * MRI cervical spine showed moderate spinal stenosis at C3-C4 level. * Generalized weakness, multifactorial, due to above conditions. * Elevated cardiac enzymes * New onset atrial fibrillation currently on Eliquis. * History of bilateral shoulder pain/arthritis * History of bilateral knee replacement. Plan: * Patient is extubated, mentation much improved. Patient has been treated with Zosyn, now on Augmentin. Patient has started speaking, and is partly oriented. Examination is nonfocal. Muscle strength quite better. Overall, clinically he is getting much better. * MRI Brain w/ and w/o: Was reported as no evidence for encephalitis. No evidence of intracranial mass, acute/subacute infarct or abnormal enhancement. Nonspecific white matter changes, likely related to small vessel ischemic disease. * Repeat EEG performed 03/01/2023 was abnormal due to background slowing of moderate degree consistent with encephalopathy. No epileptiform activity was seen. When compared to the initial EEG from 02/24/2023, the background seems to have gotten worse. * Patient is off Keppra since 03/13/2023. This was initiated empirically for tremors, which were probably not seizures, rather more related to West Nile virus. * CSF performed 02/24/2023 was colorless and clear. CSF glucose 52, protein 86 (12-60). WBC count 4, RBCs 358. Comprehensive viral detection negative. 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 For west nile it is usually supportive care. * MRI Cervical spine w/ and w/o: Is reported as mild to moderate multilevel degenerative disc disease with scattered facet and uncovertebral joint. Appendectomy. Degenerative grade 1 anterolisthesis C7 to T1. Moderate focal signal canal stenosis at C3-C4 with abutment and flattening of both the dorsal and ventral cord. Sagittal FLAIR sequence suggest some focal cord edema here. Correlate for myelopathic symptoms. The axial images are essentially nondiagnostic due to patient motion. Unable to adequately assess then neuroforamen. Dr. Lopez has consulted the orthopedic surgery team and they evaluated patient and no surgical intervention. On my review of MRI, there is moderate spinal stenosis at C3 4 level. No significant cord signal changes. * Cardiology on board for new onset atrial fibrillation. Patient currently on Eliquis. * Other management as per IM, critical care team. * Patient appears to be a good candidate for inpatient rehabilitation. Discussed with patient's sons in detail.
[2023-03-24 11:51] LABS: Glucose,Whole Blood 101 mg/dL (70-110)
--- NOTE | 2023-03-24 12:16 | P.PN ---
Subjective Progress Note Date: 03/24/23 The patient is seen today 03/23/2023 in follow-up in the intensive care unit. He has a regular medical floor overflow. He was extubated on 03/17/2023. He is improved and on room air. 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 He is more awake and alert each day. Following some simple commands. Still very weak and debilitated. He has had issues with atrial fibrillation with rapid ventricular response. He is currently on oral amiodarone. He is currently in sinus rhythm. He's been afebrile. Hemodynamically stable. Glucose 110. He remains on DuoNeb inhalations. Antibiotics in the form of Augmentin. Anticoagulated with Eliquis. He is tolerating a dysphagia level II ground diet. He remains on one-to-one supervision. He remains an aspiration precautions. PEG tube remains in place. The patient is seen today 03/24/2023 in follow-up in the intensive care unit. He remains a regular medical floor overflow. He was subsequently extubated back on 03/17/2023. He remains stable and on room air. No IV fluids. He is tolerating a ground diet dysphagia II. Still getting nourished with vital HPI 85 ML's per hour. PEG tube remains in place. Dietary is working with the patient. He remains on antibiotics in the form of Augmentin. Anticoagulated with Eliquis. Remains in a regular rhythm. Blood sugar 101. Objective - Vital Signs Vital signs: Vital Signs Temp 97.5 F L 03/24/23 08:00 Pulse 72 03/24/23 09:55 Resp 16 03/24/23 08:00 BP 122/71 03/24/23 08:00 Pulse Ox 95 03/24/23 09:46 FiO2 40 03/17/23 10:28 Intake & Output 03/23/23 03/24/23 03/24/23 18:59 06:59 18:59 Intake Total 1700 425 Output Total 1000 450 750 Balance 700 -450 -325 Weight 90.1 kg 91.3 kg Intake: Tube Feeding 1700 425 Output: Urine 1000 450 750 Other: Voiding Method Indwelling Catheter External Catheter External Catheter # Voids 1 # Bowel Movements 1 ABP, PAP, CO, CI - Last Documented Arterial Blood Pressure 119/43 - Exam GENERAL EXAM: Alert pleasant 77-year-old male, more awake, improving speech, comfortable in no apparent distress. HEAD: Normocephalic. EYES: Normal reaction of pupils, equal size. NOSE: Nasogastric tube secured in place. Clear with pink turbinates. THROAT: No erythema or exudates. NECK: No masses, no JVD. CHEST: No chest wall deformity. LUNGS: Equal air entry with few scattered rhonchi. Stable and on room air CVS: S1 and S2 normal with no audible murmur, regular rhythm. ABDOMEN: No hepatosplenomegaly, normal bowel sounds, no guarding or rigidity. SPINE: No scoliosis or deformity SKIN: No rashes CENTRAL NERVOUS SYSTEM: Slow to respond, garbled speech. Tone is normal in all 4 extremities. EXTREMITIES: There is no peripheral edema. No clubbing, no cyanosis. Peripheral pulses are intact. - Labs CBC & Chem 7: 03/20/23 05:32 03/20/23 05:32 Labs: Abnormal Lab Results - Last 24 Hours (Table) 03/23/23 03/24/23 Range/Units 18:05 00:32 POC Glucose (mg/dL) 115 H 112 H (70-110) mg/dL Assessment and Plan Assessment: Encephalopathy, secondary to the West Nile virus. Received IVIG Acute febrile illness and sepsis, no obvious infectious process identified yet, all cultures have been negative Leukocytosis, resolved, possible aspiration pneumonia. Currently on Zosyn, procalcitonin 0.31. Follow-up pro-calcitonin 0.07 Acute rhabdomyolysis, significantly elevated CPK, improved Elevated LFTs, ultrasound showed hepatomegaly Elevated troponins, possibly related to supply/demand mismatch Atrial fibrillation with rapid ventricular response initially requiring Cardizem, heparin drip. Transitioned to oral amiodarone and Eliquis currently in sinus rhythm Plan: The patient was seen and evaluated Medications reviewed Remains stable and on room air Initiated on a dysphagia II ground diet 1-1 supervision Continue aspiration precautions Plan is for possible inpatient versus subacute rehab upon discharge We will continue to follow I have personally seen and examined the patient, performed the documentation and the assessment and plan as written. Number of minutes spent on the visit: 10.
--- NOTE | 2023-03-24 12:56 | P.PN ---
Subjective Progress Note Date: 03/24/23 CHIEF COMPLAINT: Altered mental status HISTORY OF PRESENT ILLNESS: Patient status post PEG tube placement on 03/16/23. Patient is tolerating tube feeds. Tube feeds currently at a 85 mL per hour. Denies abdominal pain. He is having bowel movements. Patient tolerating dysphagia ground diet PHYSICAL EXAM: VITAL SIGNS: Reviewed. GENERAL: no acute distress. ABDOMEN: Soft. Nondistended. PEG tube site clean dry and intact NEUROLOGIC: Intubated ASSESSMENT: 1. Dysphagia 2. Mild protein calorie malnutrition 3. Failed swallow eval 4. West Nile virus encephalitis PLAN: -Continue dysphagia ground diet -Tube feeds per dietitian -Continue supportive care Physician Trade Show Specialist note has been reviewed by physician. Signing provider agrees with the documented findings, assessment, and plan of care. Objective - Vital Signs Vital signs: Vital Signs Temp 97.5 F L 03/24/23 08:00 Pulse 72 03/24/23 09:55 Resp 16 03/24/23 08:00 BP 122/71 03/24/23 08:00 Pulse Ox 95 03/24/23 09:46 FiO2 40 03/17/23 10:28 Intake & Output 03/23/23 03/24/23 03/24/23 18:59 06:59 18:59 Intake Total 1700 425 Output Total 1000 450 750 Balance 700 -450 -325 Weight 90.1 kg 91.3 kg Intake: Tube Feeding 1700 425 Output: Urine 1000 450 750 Other: Voiding Method Indwelling Catheter External Catheter External Catheter # Voids 1 # Bowel Movements 1 ABP, PAP, CO, CI - Last Documented Arterial Blood Pressure 119/43 - Labs CBC & Chem 7: 03/20/23 05:32 03/20/23 05:32 Labs: Abnormal Lab Results - Last 24 Hours (Table) 03/23/23 03/24/23 Range/Units 18:05 00:32 POC Glucose (mg/dL) 115 H 112 H (70-110) mg/dL
--- NOTE | 2023-03-24 14:11 | P.PN ---
Subjective Progress Note Date: 03/23/23 Principal diagnosis: Fever Patient is a 77-year-old male presenting to the hospital y after the patient was found to be unresponsive by the , patient has been febrile initial testing negative including LP which was only mildly elevated protein. 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 On today's evaluation that is 03/23/2023, the patient remains to be afebrile, the patient is breathing comfortably on room air without the need for supplemental oxygen and no shortness of breath, the patient denies having any chest pain or cough, patient denies nausea/vomiting /diarrhea and no abdominal pain, No lab draw today Objective - Vital Signs Vital signs: Vital Signs Temp 98.1 F 03/23/23 08:00 Pulse 78 03/23/23 08:23 Resp 21 03/23/23 08:00 BP 134/75 03/23/23 08:00 Pulse Ox 96 03/23/23 08:00 FiO2 40 03/17/23 10:28 Intake & Output 03/22/23 03/23/23 03/23/23 18:59 06:59 18:59 Intake Total 340 Output Total 1000 1000 Balance -660 -1000 Weight 90.1 kg 90.1 kg Intake: IV 0 Sodium Chloride 0.9% 500 0 ml 500 ml @ 20 mls/hr IV .Q24H [facility] Rx#:[id number] Tube Feeding 340 Output: Urine 1000 1000 Other: Voiding Method Indwelling Catheter Indwelling Catheter Indwelling Catheter ABP, PAP, CO, CI - Last Documented Arterial Blood Pressure 119/43 - Exam GENERAL DESCRIPTION: An elderly male lying in bed in no distress RESPIRATORY SYSTEM: Unlabored breathing , coarse breath sounds bilaterally HEART: S1 S2 regular rate and rhythm , ABDOMEN: Soft , no tenderness EXTREMITIES: No edema feet - Labs CBC & Chem 7: 03/20/23 05:32 03/20/23 05:32 Labs: Abnormal Lab Results - Last 24 Hours (Table) 03/23/23 Range/Units 00:25 POC Glucose (mg/dL) 123 H (70-110) mg/dL Assessment and Plan (1) Fever Current Visit: Yes Status: Acute Code(s): R50.9 - FEVER, UNSPECIFIED SNOMED Code(s): 204101936 (2) Pneumonia Current Visit: Yes Status: Acute Code(s): J18.9 - PNEUMONIA, UNSPECIFIED ORGANISM SNOMED Code(s): 608358530 (3) West Nile Virus infection Current Visit: Yes Status: Acute Code(s): A92.30 - WEST NILE VIRUS INFECTION, UNSPECIFIED SNOMED Code(s): 173155971 Plan: 1patient with encephalitis/meningitis ,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, the treatment is mostly supportive, there is some role for immunoglobulin infusion which the patient has already received 2-episode of vomiting aspiration and acute respiratory failure requiring intubation--, patient with likely aspiration pneumonia, blood and sputum culture currently negative 3-patient has shown clinical improvement the patient is afebrile white count has normalized, patient to continue with Augmentin and monitor clinical course closely Dictation was produced using [employer] dictation software. please excuse any grammatical, word or spelling errors. Time with Patient: Less than 30
--- NOTE | 2023-03-24 14:12 | P.PN ---
Subjective Progress Note Date: 03/24/23 Principal diagnosis: Fever Patient is a 77-year-old male presenting to the hospital y after the patient was found to be unresponsive by the , patient has been febrile initial testing negative including LP which was only mildly elevated protein. 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 On today's evaluation that is 03/24/2023, the patient continues to be afebrile the patient is breathing comfortably on room air, the patient denies chest pain, shortness of breath or cough, patient denies abdominal pain, no nausea/vomiting and no diarrhea No lab draw today Objective - Vital Signs Vital signs: Vital Signs Temp 97.5 F L 03/24/23 08:00 Pulse 72 03/24/23 09:55 Resp 16 03/24/23 08:00 BP 122/71 03/24/23 08:00 Pulse Ox 95 03/24/23 09:46 FiO2 40 03/17/23 10:28 Intake & Output 03/23/23 03/24/23 03/24/23 18:59 06:59 18:59 Intake Total 1700 425 Output Total 1000 450 750 Balance 700 -450 -325 Weight 90.1 kg 91.3 kg Intake: Tube Feeding 1700 425 Output: Urine 1000 450 750 Other: Voiding Method Indwelling Catheter External Catheter External Catheter # Voids 1 # Bowel Movements 1 ABP, PAP, CO, CI - Last Documented Arterial Blood Pressure 119/43 - Exam GENERAL DESCRIPTION: An elderly male lying in bed in no distress RESPIRATORY SYSTEM: Unlabored breathing , coarse breath sounds bilaterally HEART: S1 S2 regular rate and rhythm , ABDOMEN: Soft , no tenderness EXTREMITIES: No edema feet - Labs CBC & Chem 7: 03/20/23 05:32 03/20/23 05:32 Labs: Abnormal Lab Results - Last 24 Hours (Table) 03/23/23 03/24/23 Range/Units 18:05 00:32 POC Glucose (mg/dL) 115 H 112 H (70-110) mg/dL Assessment and Plan (1) Fever Current Visit: Yes Status: Acute Code(s): R50.9 - FEVER, UNSPECIFIED SNOMED Code(s): 983653249 (2) Pneumonia Current Visit: Yes Status: Acute Code(s): J18.9 - PNEUMONIA, UNSPECIFIED ORGANISM SNOMED Code(s): 676046143 (3) West Nile Virus infection Current Visit: Yes Status: Acute Code(s): A92.30 - WEST NILE VIRUS INFECTION, UNSPECIFIED SNOMED Code(s): 663312589 Plan: 1patient with encephalitis/meningitis ,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, the treatment is mostly supportive, there is some role for immunoglobulin infusion which the patient has already received 2-episode of vomiting aspiration and acute respiratory failure requiring intubation--, patient with likely aspiration pneumonia, blood and sputum culture currently negative 3-patient has shown clinical improvement the patient is afebrile white count has normalized, patient to continue with Augmentin we will repeat blood work with a.m. lab Dictation was produced using [employer] dictation software. please excuse any grammatical, word or spelling errors.
[2023-03-24] MEDS: METOPROLOL TARTRATE 50 MG TAB PO SCH (15:32)
--- NOTE | 2023-03-24 15:53 | P.PN ---
Subjective Progress Note Date: 03/24/23 Patient remains in the intensive care unit he has been extubated and is currently saturating 96% on room air with no complaints of shortness of breath. PEG tube remains in place patient is continued on enteral nutrition running 85 mL per hour continuously patient's diet was advanced to a dysphagia level II ground and with aspiration precautions and one-to-one feeding. The goal would be to increase patient's oral intake and hopefully discontinue the PEG tube prior to discharge. Patient has been transitioned to oral Augmentin. He was evaluated by the inpatient rehab physician and was recommended for inpatient rehab currently being evaluated by social work. Diflucan has been discontinued. Hemodynamically the patient is stable. Review of Systems Constitutional: Denied any fatigue denied any fever. Cardio vascular: denied any chest pain, palpitations Gastrointestinal: denied any nausea, vomiting, diarrhea Pulmonary: Denied any shortness of breath cough Neurologic denied any new focal deficits All inpatient medications were reviewed and appropriate changes in these medications as dictated in the interval history and assessment and plan. PHYSICAL EXAMINATION: GENERAL: The patient is alert and oriented x3, not in any acute distress. Well developed, well nourished. HEENT: Pupils are round and equally reacting to light. EOMI. No scleral icterus. No conjunctival pallor. Normocephalic, atraumatic. No pharyngeal erythema. No thyromegaly. CARDIOVASCULAR: S1 and S2 present. No murmurs, rubs, or gallops. PULMONARY: Chest is clear to auscultation, no wheezing or crackles. ABDOMEN: Soft, nontender, nondistended, normoactive bowel sounds. No palpable organomegaly. PEG tube in place. MUSCULOSKELETAL: No joint swelling or deformity. EXTREMITIES: No cyanosis, clubbing, or pedal edema. NEUROLOGICAL: Gross neurological examination did not reveal any focal deficits. SKIN: No rashes. Assessment West Nile encephalitis patient received IVIG and mentation is currently improved alert 3 Metabolic encephalopathy, currently improved from above. Suspected aspiration pneumonia and leukocytosis treated with IV Zosyn palpable calcitonin levels normal and patient has been transitioned to oral Augmentin Acute hypoxemic respiratory failure likely due to viral illness requiring mechan ical intubation and ventilator status post extubation and on room air This patient status post PEG tube placement due to dysphagia Oral thrush treated with oral diflucan suspect this contributed to some degree of dysphagia. Generalized weakness Paroxysmal atrial fibrillation on blood thinner. Acute rhabdomyolysis secondary to prolonged down time patient was found on the floor by his . GI prophylaxis DVT prophylaxis oN eliquis Full Code Plan: Continue with Augmentin, Diflucan discontinued Continue with the tube feeding via PEG tube plans to reevaluation possibly wean feedings. Encourage increased oral intake. Continue with amiodarone and Eliquis PT/OT: Subacute rehab was evaluated and recommended for IP rehab social work is following The impression and plan of care has been dictated by Chio Younger, Nurse Practitioner as directed. Dr. Bonnie MD I have performed a history and physical examination and medical decision making of this patient, discussed the same with the dictator, and agree with the dictators assessment and plan as written, documented as a scribe. Based on total visit time, I have performed more than 50% of this visit. Objective - Vital Signs Vital signs: Vital Signs Temp 97.5 F L 03/24/23 08:00 Pulse 74 03/24/23 09:46 Resp 16 03/24/23 08:00 BP 122/71 03/24/23 08:00 Pulse Ox 95 03/24/23 09:46 FiO2 40 03/17/23 10:28 Intake & Output 03/23/23 03/24/23 03/24/23 18:59 06:59 18:59 Intake Total 1700 Output Total 1000 450 Balance 700 -450 Weight 90.1 kg 91.3 kg Intake: Tube Feeding 1700 Output: Urine 1000 450 Other: Voiding Method Indwelling Catheter External Catheter ABP, PAP, CO, CI - Last Documented Arterial Blood Pressure 119/43 - Labs CBC & Chem 7: 03/20/23 05:32 03/20/23 05:32 Labs: Abnormal Lab Results - Last 24 Hours (Table) 03/23/23 03/24/23 Range/Units 18:05 00:32 POC Glucose (mg/dL) 115 H 112 H (70-110) mg/dL Assessment and Plan Time with Patient: Less than 30
--- NOTE | 2023-03-24 16:59 | P.PN ---
Subjective Progress Note Date: 03/24/23 03/24/2023: Patient was seen for a follow-up. Patient's 2 daughters were present today. Patient is just completing breathing treatment. He is quite alert and awake, still mildly encephalopathic. 03/23/2023: Patient was seen for a follow-up. Over last 7 days, patient was followed up by Dr. Lopez. Please refer to his notes for detail. Patient's two sons were present today. They mentioned that patient was extubated on 03/16/2023. He had undergone PEG placement. Patient then he came out of anesthesia for PEG tube, started talking. He is talking much better, as per examination below. He appears very comfortable. 03/14/2023: Patient was seen for a follow-up. Patient apparently turn for the worse. Patient's NG tube partially came out, and he was getting feeds through the NG tube. Patient aspirated. Patient was placed on facemask, and patient vomited and further aspirated. Patient was intubated, and transferred to ICU. Patient started again on Zosyn. Patient is critically sick. Patient is currently on Levophed 0.25 micrograms per kilogram per minute (86.25 mL per hour), propofol 45 mcg/kg per minute, IV fluids. 03/13/2023: Patient was seen for a follow-up. Family members were not present t joel. Patient is much more alert and awake. He is trying to make some sounds, but unintelligible. His mouth has dried phlegm. Coated tongue and some lips. Patient continues to be severely encephalopathic. 03/12/2023 patient was seen for follow-up. Patient's family members are present. Patient overall remained same. He nods "no" for headache he is slightly more awake since decreasing the dose of Keppra. 03/10/2023: Patient was seen for a follow-up. Patient's family members were present. They mentioned that patient was getting better when the shunt was receiving IV vitamins and been patient received IVIG. They were recommending IV vitamin D, zinc and some other vitamins. I informed that vitamin D excess can produce toxicity. Likewise zinc is typically given orally. Patient clinically not much change. Telemetry monitoring showing sinus rhythm with sinus bradycardia in the 40s, with some PVCs, PACs. Previously had SVT and A. fib. 03/09/2023: Patient was seen for follow-up. Patient's family members are present. Patient over the last 1 week has been followed up by Dr. Jose G Lopez. Please refer to his notes for details. 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 Family members states that patient is not much better. He is talking very minimal. Last week he was trying to talk. However he is not speaking much now. Patient apparently also has received 3 days of IVIG. 03/01/2023: Patient was seen for a follow-up. Patient's older daughter, and shukri johns's 2 sons were present today. Patient's daughter believes that he was much more awake earlier today, with eyes were more widely open. He did not talk, but did new walked was around. Looking at the family more obviously. Patient's family has mentioned that patient does work in the yard, cuts his own grass, and on the Day weekend, the event to watch the grandson's football game. He regularly goes out for a walk with his . He may have been exposed to mosquitoes. Patient was fine until Thursday when he stopped talking and presented to the ER. Objective - Vital Signs Vital signs: Vital Signs Temp 98.2 F 03/24/23 14:00 Pulse 88 03/24/23 15:56 Resp 18 03/24/23 14:00 BP 139/85 03/24/23 14:00 Pulse Ox 93 L 03/24/23 14:00 FiO2 40 03/17/23 10:28 Intake & Output 03/23/23 03/24/23 03/24/23 18:59 06:59 18:59 Intake Total 1700 425 Output Total 1000 450 750 Balance 700 -450 -325 Weight 90.1 kg 91.3 kg Intake: Tube Feeding 1700 425 Output: Urine 1000 450 750 Other: Voiding Method Indwelling Catheter External Catheter External Catheter # Voids 1 # Bowel Movements 1 ABP, PAP, CO, CI - Last Documented Arterial Blood Pressure 119/43 - Exam Patient is almost fully alert and awake. He is pleasant, smiling. His speech and language functions are clear. No aphasia, although they may be mild dysarthria. His face is symmetric. On muscle strength testing, his biceps, triceps and channel cementer are normal. Deltoid is 3+/4+, hip flexion 4 4-/4 4-, ankle dorsiflexion 5/3+. In the left ankle, patient somewhat flaps his foot up and down like clonus but would not able to dorsiflex it with any resistance. 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 * Status post aspiration pneumonia, respiratory distress, status post intubation, now extubated on 03/26/2023. * Acute metabolic encephalopathy likely from severe pneumonia and West Nile virus, much improved. * SIRS, pneumonia * Acute rhabdomyolysis, resolving, most recent CK 719. * MRI cervical spine showed moderate spinal stenosis at C3-C4 level. * Generalized weakness, multifactorial, due to above conditions. * Elevated cardiac enzymes * New onset atrial fibrillation currently on Eliquis. * History of bilateral shoulder pain/arthritis * History of bilateral knee replacement. Plan: * Patient is extubated, mentation much improved. Patient has been treated with Zosyn, now on Augmentin. Patient has started speaking, and is partly oriented. Examination is nonfocal. Muscle strength quite better. Overall, clinically he is getting much better. * MRI Brain w/ and w/o: Was reported as no evidence for encephalitis. No evidence of intracranial mass, acute/subacute infarct or abnormal enhancement. Nonspecific white matter changes, likely related to small vessel ischemic disease. * Repeat EEG performed 03/01/2023 was abnormal due to background slowing of moderate degree consistent with encephalopathy. No epileptiform activity was seen. When compared to the initial EEG from 02/24/2023, the background seems to have gotten worse. * Patient is off Keppra since 03/13/2023. This was initiated empirically for tremors, which were probably not seizures, rather more related to West Nile virus. * CSF performed 02/24/2023 was colorless and clear. CSF glucose 52, protein 86 (12-60). WBC count 4, RBCs 358. Comprehensive viral detection negative. 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 For west nile it is usually supportive care. * MRI Cervical spine w/ and w/o: Is reported as mild to moderate multilevel degenerative disc disease with scattered facet and uncovertebral joint. Appendectomy. Degenerative grade 1 anterolisthesis C7 to T1. Moderate focal signal canal stenosis at C3-C4 with abutment and flattening of both the dorsal and ventral cord. Sagittal FLAIR sequence suggest some focal cord edema here. Correlate for myelopathic symptoms. The axial images are essentially nondiagnostic due to patient motion. Unable to adequately assess then neuroforamen. Dr. Lopez has consulted the orthopedic surgery team and they evaluated patient and no surgical intervention. On my review of MRI, there is moderate spinal stenosis at C3 4 level. No significant cord signal changes. * Cardiology on board for new onset atrial fibrillation. Patient currently on Eliquis. * Other management as per IM, critical care team. * Patient appears to be a good candidate for inpatient rehabilitation. Discussed with patient's daughters in detail. Neurologically clear for transfer to inpatient rehab. Await insurance authorization.
[2023-03-24] MEDS: SODIUM CHLORIDE 0.9% 500 ML 500 ML IV SCH (17:03)
[2023-03-24] MEDS: MELATONIN 5 MG TABLET PO SCH (20:05)
[2023-03-25 00:27] LABS: Glucose,Whole Blood 108 mg/dL (70-110)
[2023-03-25 06:47] LABS: Glucose,Whole Blood 108 mg/dL (70-110)
[2023-03-25 06:48] LABS: Basophils % (A) 0 %; Eosinophils # (A) 0.2 k/uL (0-0.7); Eosinophils % (A) 2 %; HCT 40.2 % (39.0-53.0); HGB 13.4 gm/dL (13.0-17.5); Lymphocytes # (A) 1.8 k/uL (1.0-4.8); Lymphocytes % (A) 22 %; MCH 33.1 pg (25.0-35.0); MCHC 33.3 g/dL (31.0-37.0); MCV 99.3 fL (80.0-100.0); Macrocytosis Slight; Mean Platelet Volume 7.5; Monocytes # (A) 0.5 k/uL (0-1.0); Monocytes % (A) 6 %; Neutrophils # (A) 5.5 k/uL (1.3-7.7); Neutrophils % (A) 68 %; Platelet Count 246 k/uL (150-450); RBC 4.05 m/uL (4.30-5.90); RDW 14.1 % (11.5-15.5); WBC 8.1 k/uL (3.8-10.6)
[2023-03-25 07:04] LABS: ALT 54 U/L (4-49); AST 32 U/L (17-59); African American GFR (CKD) >90 (>60 ml/min/1.73 sqM); Albumin 3.5 g/dL (3.5-5.0); Alkaline Phosphatase 81 U/L (38-126); Anion Gap 10 mmol/L; Blood Urea Nitrogen 28 mg/dL (9-20); C Reactive Protein 2.1 mg/dL (<1.0); Carbon Dioxide 22 mmol/L (22-30); Chloride 103 mmol/L (98-107); Glucose 107 mg/dL (74-99); Non-African American GFR(CKD) >90 (>60 ml/min/1.73 sqM); Potassium 4.2 mmol/L (3.5-5.1); Sodium 135 mmol/L (137-145); Total Bilirubin 0.8 mg/dL (0.2-1.3); Total Protein 7.5 g/dL (6.3-8.2)
[2023-03-25] MEDS: IPRATROPIUM-ALBUTEROL 3 ML NEB INHALATION SCH ×3 (08:22→21:38)
[2023-03-25] MEDS: PANTOPRAZOLE 40 MG/10 ML VIAL IVP SCH (09:48)
[2023-03-25] MEDS: AMOXIC-POT CLAV 875-125MG 1 EACH TAB PEG/G-TUBE SCH (09:48)
[2023-03-25] MEDS: polyethylene glycoL 3350 17 GM POWD.PACK PO SCH (09:48)
[2023-03-25] MEDS: LACTOBACILLUS ACIDOPHILUS/PECT 1 EACH CAPSULE PO SCH ×3 (09:48→22:08)
[2023-03-25] MEDS: APIXABAN 5 MG TAB PO SCH ×2 (09:49→22:08)
[2023-03-25] MEDS: CHOLECALCIFEROL 125 MCG (5000 IU) TABLET PO SCH (09:49)
[2023-03-25] MEDS: AMIODARONE 200 MG TAB PO SCH ×2 (09:49→22:08)
[2023-03-25] MEDS: ASCORBIC ACID 500 MG TAB PO SCH (09:49)
[2023-03-25] MEDS: ZINC SULFATE 220 MG CAP PO SCH (09:50)
--- NOTE | 2023-03-25 10:42 | P.PN ---
Subjective Progress Note Date: 03/25/23 CHIEF COMPLAINT: Altered mental status HISTORY OF PRESENT ILLNESS: Patient status post PEG tube placement on 03/16/23. Patient is tolerating tube feeds. Tube feeds currently at a 85 mL per hour. Denies abdominal pain. He is having bowel movements. Patient eating a small amount. Awaiting insurance authorization for rehab placement PHYSICAL EXAM: VITAL SIGNS: Reviewed. GENERAL: no acute distress. ABDOMEN: Soft. Nondistended. PEG tube site clean dry and intact ASSESSMENT: 1. Dysphagia 2. Mild protein calorie malnutrition 3. Failed swallow eval 4. West Nile virus encephalitis PLAN: -Continue dysphagia ground diet -Tube feeds per dietitian -Continue supportive care Physician Envelope Stamping Machine Operator note has been reviewed by physician. Signing provider agrees with the documented findings, assessment, and plan of care. Objective - Vital Signs Vital signs: Vital Signs Temp 97.8 F 03/25/23 02:00 Pulse 76 03/25/23 08:32 Resp 22 03/25/23 02:00 BP 136/73 03/25/23 02:00 Pulse Ox 94 L 03/25/23 08:25 FiO2 40 03/17/23 10:28 Intake & Output 03/24/23 03/25/23 03/25/23 18:59 06:59 18:59 Intake Total 425 700 Output Total 750 550 200 Balance -325 150 -200 Weight 92.4 kg Intake: Tube Feeding 425 700 Output: Urine 750 550 200 Other: Voiding Method External Catheter External Catheter # Voids 1 # Bowel Movements 1 ABP, PAP, CO, CI - Last Documented Arterial Blood Pressure 119/43 - Labs CBC & Chem 7: 03/25/23 05:37 03/25/23 04:49 Labs: Abnormal Lab Results - Last 24 Hours (Table) 03/25/23 03/25/23 Range/Units 04:49 05:37 RBC 4.05 L (4.30-5.90) m/uL Sodium 135 L (137-145) mmol/L BUN 28 H (9-20) mg/dL Glucose 107 H (74-99) mg/dL ALT 54 H (4-49) U/L C-Reactive Protein 2.1 H (<1.0) mg/dL
[2023-03-25 10:50] LABS: Glucose,Whole Blood 110 mg/dL (70-110)
--- NOTE | 2023-03-25 12:10 | P.PN ---
Subjective Progress Note Date: 03/25/23 The patient is seen today 03/23/2023 in follow-up in the intensive care unit. He has a regular medical floor overflow. He was extubated on 03/17/2023. He is improved and on room air. 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 He is more awake and alert each day. Following some simple commands. Still very weak and debilitated. He has had issues with atrial fibrillation with rapid ventricular response. He is currently on oral amiodarone. He is currently in sinus rhythm. He's been afebrile. Hemodynamically stable. Glucose 110. He remains on DuoNeb inhalations. Antibiotics in the form of Augmentin. Anticoagulated with Eliquis. He is tolerating a dysphagia level II ground diet. He remains on one-to-one supervision. He remains an aspiration precautions. PEG tube remains in place. The patient is seen today 03/24/2023 in follow-up in the intensive care unit. He remains a regular medical floor overflow. He was subsequently extubated back on 03/17/2023. He remains stable and on room air. No IV fluids. He is tolerating a ground diet dysphagia II. Still getting nourished with vital HPI 85 ML's per hour. PEG tube remains in place. Dietary is working with the patient. He remains on antibiotics in the form of Augmentin. Anticoagulated with Eliquis. Remains in a regular rhythm. Blood sugar 101. The patient is seen today 03/25/2023 in follow-up in the intensive care unit. He has a regular medical floor overflow. He is resting in bed. Awake and alert in no acute distress. Continued on room air. No IV fluids. Being nourished with vital AF at 85 ML's per hour per his PEG tube. He remains on Augmentin. Anticoagulated with Eliquis. Discharge is still pending insurance authorization for inpatient rehabilitation. Objective - Vital Signs Vital signs: Vital Signs Temp 98.5 F 03/25/23 12:00 Pulse 70 03/25/23 12:00 Resp 24 03/25/23 12:00 BP 136/73 03/25/23 12:00 Pulse Ox 98 03/25/23 12:00 FiO2 40 03/17/23 10:28 Intake & Output 03/24/23 03/25/2303/25/23 18:59 06:59 18:59 Intake Total 425 700 340 Output Total 750 550 200 Balance -325 150 140 Weight 92.4 kg Intake: Tube Feeding 425 700 340 Output: Urine 750 550 200 Other: Voiding Method External Catheter External Catheter External Catheter # Voids 1 # Bowel Movements 1 ABP, PAP, CO, CI - Last Documented Arterial Blood Pressure 119/43 - Exam GENERAL EXAM: Alert pleasant 77-year-old male, on room air, improving speech, comfortable in no apparent distress. HEAD: Normocephalic. EYES: Normal reaction of pupils, equal size. NOSE: Nasogastric tube secured in place. Clear with pink turbinates. THROAT: No erythema or exudates. NECK: No masses, no JVD. CHEST: No chest wall deformity. LUNGS: Equal air entry with few scattered rhonchi. CVS: S1 and S2 normal with no audible murmur, regular rhythm. ABDOMEN: No hepatosplenomegaly, normal bowel sounds, no guarding or rigidity. SPINE: No scoliosis or deformity SKIN: No rashes CENTRAL NERVOUS SYSTEM: Slow to respond, garbled speech. Tone is normal in all 4 extremities. EXTREMITIES: There is no peripheral edema. No clubbing, no cyanosis. P eripheral pulses are intact. - Labs CBC & Chem 7: 03/25/23 05:37 03/25/23 04:49 Labs: Abnormal Lab Results - Last 24 Hours (Table) 03/25/23 03/25/23 Range/Units 04:49 05:37 RBC 4.05 L (4.30-5.90) m/uL Sodium 135 L (137-145) mmol/L BUN 28 H (9-20) mg/dL Glucose 107 H (74-99) mg/dL ALT 54 H (4-49) U/L C-Reactive Protein 2.1 H (<1.0) mg/dL Assessment and Plan Assessment: Encephalopathy, secondary to the West Nile virus. Received IVIG Acute febrile illness and sepsis, no obvious infectious process identified yet, all cultures have been negative Leukocytosis, resolved, possible aspiration pneumonia. Currently on Augmentin Acute rhabdomyolysis, significantly elevated CPK, improved Elevated LFTs, ultrasound showed hepatomegaly Elevated troponins, possibly related to supply/demand mismatch Atrial fibrillation with rapid ventricular response. Transitioned to oral amiodarone and Eliquis, currently in sinus rhythm Plan: The patient was seen and evaluated Medications reviewed Remains stable and on room air Continued on Augmentin Initiated on a dysphagia II ground diet Continue aspiration precautions Plan is for possible inpatient versus subacute rehab upon discharge We will continue to follow I have personally seen and examined the patient, performed the documentation and the assessment and plan as written. Number of minutes spent on the visit: 10.
--- NOTE | 2023-03-25 14:34 | P.PN ---
Subjective Progress Note Date: 03/25/23 Patient remains in the intensive care unit he has been extubated and is currently saturating 96% on room air with no complaints of shortness of breath. PEG tube remains in place patient is continued on enteral nutrition running 85 mL per hour continuously patient's diet was advanced to a dysphagia level II ground and with aspiration precautions and one-to-one feeding. The goal would be to increase patient's oral intake and hopefully discontinue the PEG tube prior to discharge. Patient has been transitioned to oral Augmentin. He was evaluated by the inpatient rehab physician and was recommended for inpatient rehab currently being evaluated by social work. Diflucan has been discontinued. Hemodynamically the patient is stable. 03/25/2023 Patient is evaluated today in the intensive care unit. Doing well, alert x 3. Remains on room air. Peg tube in place with Vital AF 1.2 at 85 mls/hr with free water flush 30mL every 4 hours. Patient is tolerating some diet currently on dysphagia 2. Blood work is essentially unremarkable. Hemodynamically he is stable. He is pending insurance authorization for DC to inpatient rehab. Review of Systems Constitutional: Denied any fatigue denied any fever. Cardio vascular: denied any chest pain, palpitations Gastrointestinal: denied any nausea, vomiting, diarrhea Pulmonary: Denied any shortness of breath cough Neurologic denied any new focal deficits All inpatient medications were reviewed and appropriate changes in these medications as dictated in the interval history and assessment and plan. PHYSICAL EXAMINATION: GENERAL: The patient is alert and oriented x3, not in any acute distress. Well developed, well nourished. HEENT: Pupils are round and equally reacting to light. EOMI. No scleral icterus. No conjunctival pallor. Normocephalic, atraumatic. No pharyngeal erythema. No thyromegaly. CARDIOVASCULAR: S1 and S2 present. No murmurs, rubs, or gallops. PULMONARY: Chest is clear to auscultation, no wheezing or crackles. ABDOMEN: Soft, nontender, nondistended, normoactive bowel sounds. No palpable organomegaly. PEG tube in place. MUSCULOSKELETAL: No joint swelling or deformity. EXTREMITIES: No cyanosis, clubbing, or pedal edema. NEUROLOGICAL: Gross neurological examination did not reveal any focal deficits. SKIN: No rashes. Assessment West Nile encephalitis patient received IVIG and mentation is currently improved alert 3 Metabolic encephalopathy, currently improved from above. Suspected aspiration pneumonia and leukocytosis treated with IV Zosyn palpable calcitonin levels normal and patient has been transitioned to oral Augmentin Acute hypoxemic respiratory failure likely due to viral illness requiring mechanical intubation and ventilator status post extubation and on room air This patient status post PEG tube placement due to dysphagia Oral thrush treated with oral diflucan suspect this contributed to some degree of dysphagia. Generalized weakness Paroxysmal atrial fibrillation on blood thinner. Acute rhabdomyolysis secondary to prolonged down time patient was found on the floor by his . GI prophylaxis DVT prophylaxis oN eliquis Full Code Plan: Continue with Augmentin, Diflucan discontinued Continue with the tube feeding via PEG tube plans to reevaluation possibly wean feedings. Encourage increased oral intake. Continue with amiodarone and Eliquis PT/OT: Subacute rehab was evaluated and recommended for IP rehab social work is following The impression and plan of care has been dictated by Chio Younger, Nurse Practitioner as directed. Dr. Bonnie MD I have performed a history and physical examination and medical decision making of this patient, discussed the same with the dictator, and agree with the dictators assessment and plan as written, documented as a scribe. Based on total visit time, I have performed more than 50% of this visit. Objective - Vital Signs Vital signs: Vital Signs Temp 98.5 F 03/25/23 12:00 Pulse 70 03/25/23 12:00 Resp 24 03/25/23 12:00 BP 126/74 03/25/23 12:00 Pulse Ox 98 03/25/23 12:00 FiO2 40 03/17/23 10:28 Intake & Output 03/24/23 03/25/23 03/25/23 18:59 06:59 18:59 Intake Total 425 700 340 Output Total 750 550 200 Balance -325 150 140 Weight 92.4 kg Intake: Tube Feeding 425 700 340 Output: Urine 750 550 200 Other: Voiding Method External Catheter External Catheter External Catheter # Voids 1 # Bowel Movements 1 ABP, PAP, CO, CI - Last Documented Arterial Blood Pressure 119/43 - Labs CBC & Chem 7: 03/25/23 05:37 03/25/23 04:49 Labs: Abnormal Lab Results - Last 24 Hours (Table) 03/25/23 03/25/23 Range/Units 04:49 05:37 RBC 4.05 L (4.30-5.90) m/uL Sodium 135 L (137-145) mmol/L BUN 28 H (9-20) mg/dL Glucose 107 H (74-99) mg/dL ALT 54 H (4-49) U/L C-Reactive Protein 2.1 H (<1.0) mg/dL Assessment and Plan Time with Patient: Less than 30
--- NOTE | 2023-03-25 16:45 | P.PN ---
Subjective Progress Note Date: 03/25/23 03/25/2023: Patient was seen for a follow-up. Patient's daughter was present today. She mentions that patient has been napping, ate some lunch. Most of the nutrition he gets to his PEG tube. His taste sensation has been off. Patient offers no complaints. No headache. 03/24/2023: Patient was seen for a follow-up. Patient's 2 daughters were present today. Patient is just completing breathing treatment. He is quite alert and awake, still mildly encephalopathic. 03/23/2023: Patient was seen for a follow-up. Over last 7 days, patient was followed up by Dr. Lopez. Please refer to his notes for detail. Patient's two sons were present today. They mentioned that patient was extubated on 03/16/2023. He had undergone PEG placement. Patient then he came out of anesthesia for PEG tube, started talking. He is talking much better, as per examination below. He appears very comfortable. 03/14/2023: Patient was seen for a follow-up. Patient apparently turn for the worse. Patient's NG tube partially came out, and he was getting feeds through the NG tube. Patient aspirated. Patient was placed on facemask, and patient vomited and further aspirated. Patient was intubated, and transferred to ICU. Patient started again on Zosyn. Patient is critically sick. Patient is currently on Levophed 0.25 micrograms per kilogram per minute (86.25 mL per hour), propofol 45 mcg/kg per minute, IV fluids. 03/13/2023: Patient was seen for a follow-up. Family members were not present t joel. Patient is much more alert and awake. He is trying to make some sounds, but unintelligible. His mouth has dried phlegm. Coated tongue and some lips. Patient continues to be severely encephalopathic. 03/12/2023 patient was seen for follow-up. Patient's family members are present. Patient overall remained same. He nods "no" for headache he is slightly more awake since decreasing the dose of Keppra. 03/10/2023: Patient was seen for a follow-up. Patient's family members were present. They mentioned that patient was getting better when the shunt was receiving IV vitamins and been patient received IVIG. They were recommending IV vitamin D, zinc and some other vitamins. I informed that vitamin D excess can produce toxicity. Likewise zinc is typically given orally. Patient clinically not much change. Telemetry monitoring showing sinus rhythm with sinus bradycardia in the 40s, with some PVCs, PACs. Previously had SVT and A. fib. 03/09/2023: Patient was seen for follow-up. Patient's family members are present. Patient over the last 1 week has been followed up by Dr. Jose G Lopez. Please refer to his notes for details. 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 Family members states that patient is not much better. He is talking very minimal. Last week he was trying to talk. However he is not speaking much now. Patient apparently also has received 3 days of IVIG. 03/01/2023: Patient was seen for a follow-up. Patient's older daughter, and shukri johns's 2 sons were present today. Patient's daughter believes that he was much more awake earlier today, with eyes were more widely open. He did not talk, but did new walked was around. Looking at the family more obviously. Patient's family has mentioned that patient does work in the yard, cuts his own grass, and on the Labor Day weekend, the event to watch the grandson's football game. He regularly goes out for a walk with his . He may have been exposed to mosquitoes. Patient was fine until Thursday when he stopped talking and presented to the ER. Objective - Vital Signs Vital signs: Vital Signs Temp 98.5 F 03/25/23 12:00 Pulse 70 03/25/23 12:00 Resp 24 03/25/23 12:00 BP 126/74 03/25/23 12:00 Pulse Ox 98 03/25/23 12:00 FiO2 40 03/17/23 10:28 Intake & Output 03/24/23 03/25/23 03/25/23 18:59 06:59 18:59 Intake Total 425 700 340 Output Total 750 550 200 Balance -325 150 140 Weight 92.4 kg Intake: Tube Feeding 425 700 340 Output: Urine 750 550 200 Other: Voiding Method External Catheter External Catheter External Catheter # Voids 1 # Bowel Movements 1 ABP, PAP, CO, CI - Last Documented Arterial Blood Pressure 119/43 - Exam Patient is almost fully alert and awake. He is pleasant, smiling. His speech and language functions are clear. No aphasia. Patient knows it is [facility] in [place]. He could not tell the current month or the year. Attention span is quite diminished. Fund of knowledge is somewhat limited. His face is symmetric. His pupils are round and reacting. Visual myers are full on confrontation with no neglect. On muscle strength testing, his biceps, triceps and staff engineer are normal. Deltoid is 3+/4+, hip flexion 4 4-/4 4-, ankle dorsiflexion 5/3+. In the left ankle, patient somewhat flaps his foot up and down like clonus but would not able to dorsiflex it with any resistance. 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 * Status post aspiration pneumonia, respiratory distress, status post intubation, now extubated on 03/26/2023. * Acute metabolic encephalopathy likely from severe pneumonia and West Nile virus, much improved. * Left leg/foot weakness, possibly due to West Nile virus. * SIRS, pneumonia * Acute rhabdomyolysis, resolved, most recent CK 54 on 03/20/2023. * MRI cervical spine showed moderate spinal stenosis at C3-C4 level. * Generalized weakness, multifactorial, due to above conditions. * Elevated cardiac enzymes * New onset atrial fibrillation currently on Eliquis. * History of bilateral shoulder pain/arthritis * History of bilateral knee replacement. Plan: * Patient is doing much better. His mentation, strength is improving. He still has slight left leg weakness particularly in the ankle dorsiflexion. This may get better with therapy. * Patient has been treated with Zosyn, now on Augmentin. * MRI Brain w/ and w/o: Was reported as no evidence for encephalitis. No evidence of intracranial mass, acute/subacute infarct or abnormal enhancement. Nonspecific white matter changes, likely related to small vessel ischemic disease. * Repeat EEG performed 03/01/2023 was abnormal due to background slowing of moderate degree consistent with encephalopathy. No epileptiform activity was seen. When compared to the initial EEG from 02/24/2023, the background seems to have gotten worse. * Patient is off Keppra since 03/13/2023. This was initiated empirically for t remors, which were probably not seizures, rather more related to West Nile virus. * CSF performed 02/24/2023 was colorless and clear. CSF glucose 52, protein 86 (12-60). WBC count 4, RBCs 358. Comprehensive viral detection negative. 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 For west nile it is usually supportive care. * MRI Cervical spine w/ and w/o: Is reported as mild to moderate multilevel degenerative disc disease with scattered facet and uncovertebral joint. Appendectomy. Degenerative grade 1 anterolisthesis C7 to T1. Moderate focal signal canal stenosis at C3-C4 with abutment and flattening of both the dorsal and ventral cord. Sagittal FLAIR sequence suggest some focal cord edema here. Correlate for myelopathic symptoms. The axial images are essentially nondiagnostic due to patient motion. Unable to adequately assess then neuroforamen. Dr. Lopez has consulted the orthopedic surgery team and they evaluated patient and no surgical intervention. On my review of MRI, there is moderate spinal stenosis at C3 4 level. No significant cord signal changes. * Cardiology on board for new onset atrial fibrillation. Patient currently on Eliquis. * Other management as per IM, critical care team. * Patient appears to be a good candidate for inpatient rehabilitation. Discussed with patient's daughters in detail. Neurologically clear for transfer to inpatient rehab. Await insurance authorization.
[2023-03-25] MEDS: METOPROLOL TARTRATE 50 MG TAB PO SCH (18:10)
[2023-03-25] MEDS: SODIUM CHLORIDE 0.9% 500 ML 500 ML IV SCH (18:11)
[2023-03-25] MEDS: MELATONIN 5 MG TABLET PO SCH (22:08)
[2023-03-26] MEDS: IPRATROPIUM-ALBUTEROL 3 ML NEB INHALATION SCH ×3 (07:29→19:29)
--- NOTE | 2023-03-26 08:36 | P.PN ---
Subjective Progress Note Date: 03/26/23 Principal diagnosis: Altered mental status This is a 77-year-old male who presented to the ER with concerns of altered mental status. His had found him on the ground prior to coming to the ER. He was placed in ICU, has had tachycardia with hypotension. He also continues t o have intermittent fevers. Workup for bacterial meningitis was negative. EEG was negative for seizure activity. Further workup still in progress. Patient still has a white count today. He is seen laying in bed in the ICU this morning, in no acute distress. 03/02/2023 Patient is seen and evaluated sitting up in bed in ICU. Over the weekend patient developed atrial fibrillation with RVR. He remains on a heparin drip. Patient also began to be more alert over the weekend, responds to verbal commands, does have garbled speech. Neurology has ordered an MRI of the brain. 03/05/2023 Patient is seen and evaluated laying in bed in ICU. He continues to be not very arousable, not alert today. Speech remains garbled. Labs have come back showing West Nile virus, infectious disease already consulted, await their recommendations. 03/09/2023 Patient is seen and evaluated on step-down unit. He did receive 3 doses of IVIG. NG tube and feeding still in place. Speech still garbled, he is arousable though and able to follow simple commands 03/10/2023 Patient is seen and evaluated on step-down unit. White count elevated today, no fever. Chest XR pending. Patient looks more restless in the bed today. 03/12/2023 Patient seen and evaluated laying in bed this morning. He is more alert today, speech is still garbled. His white count is trending down. 03/16/2023 Patient aspirated over the weekend and ended up back in ICU. He remains on mechanical ventilation. Plan is for peg-tube today. 03/17/2023 Patient had PEG tube placed yesterday, tolerated procedure well. Plan for today is to trial weaning off mechanical ventilation. He was arousable during my exam today, opening his eyes. 03/19/2023 Patient seen and evaluated laying in bed in the ICU. He is off mechanical venti lation. He is awake and alert today. He is able to tell me his name and that he is in the hospital. Speech still somewhat garbled He is tolerating tube feeds through PEG tube. 03/26/2023 Patient seen and evaluated in ICU laying in bed. He is much more alert. He is on room air. Vitals are stable. He is tolerating diet. Plan is for inpatient rehab if approved by insurance. Objective - Vital Signs Vital signs: Vital Signs Temp 97.9 F 03/26/23 06:00 Pulse 74 03/26/23 07:40 Resp 22 03/26/23 06:00 BP 126/68 03/26/23 06:00 Pulse Ox 95 03/26/23 06:00 FiO2 40 03/17/23 10:28 Intake & Output 03/25/23 03/26/23 03/26/23 18:59 06:59 18:59 Intake Total 930 435 85 Output Total 600 600 0 Balance 330 -165 85 Intake: Tube Feeding 930 435 85 Output: Urine 600 600 0 Other: Voiding Method External Catheter External Catheter ABP, PAP, CO, CI - Last Documented Arterial Blood Pressure 119/43 - Constitutional General appearance: Present: cooperative, no acute distress - EENT Eyes: Present: PERRLA - Neck Neck: Present: normal ROM. Absent: lymphadenopathy, rigidity - Respiratory Respiratory: bilateral: CTA - Cardiovascular Rhythm: regular Heart sounds: normal: S1, S2 - Gastrointestinal General gastrointestinal: Present: soft. Absent: tenderness - Integumentary Integumentary: Present: normal, normal turgor - Musculoskeletal Musculoskeletal: Present: generalized weakness - Psychiatric Psychiatric: Present: A&O x's 3 - Labs CBC & Chem 7: 03/25/23 05:37 03/25/23 04:49 Assessment and Plan (1) Altered mental status Current Visit: Yes Status: Acute Code(s): R41.82 - ALTERED MENTAL STATUS, UNSPECIFIED SNOMED Code(s): 474670143 (2) Pneumonia Current Visit: Yes Status: Acute Code(s): J18.9 - PNEUMONIA, UNSPECIFIED ORG ANISM SNOMED Code(s): 997069110 (3) Septic shock Current Visit: Yes Status: Acute Code(s): A41.9 - SEPSIS, UNSPECIFIED ORGANISM; R65.21 - SEVERE SEPSIS WITH SEPTIC SHOCK SNOMED Code(s): 18539491 (4) Atrial fibrillation Current Visit: Yes Status: Acute Code(s): I48.91 - UNSPECIFIED ATRIAL FIBRILLATION SNOMED Code(s): 55718243 (5) West Nile Virus infection Current Visit: Yes Status: Acute Code(s): A92.30 - WEST NILE VIRUS INFE CTION, UNSPECIFIED SNOMED Code(s): 702147205 Plan: CBC and CMP in the morning. Plan is for inpatient rehab when approved by insurance Patient seen and evaluated by nurse practitioner, physician in agreement with plan
[2023-03-26] MEDS: polyethylene glycoL 3350 17 GM POWD.PACK PO SCH (09:44)
[2023-03-26] MEDS: LACTOBACILLUS ACIDOPHILUS/PECT 1 EACH CAPSULE PO SCH ×3 (09:47→19:57)
[2023-03-26] MEDS: ZINC SULFATE 220 MG CAP PO SCH (09:47)
[2023-03-26] MEDS: PANTOPRAZOLE 40 MG/10 ML VIAL IVP SCH (09:47)
[2023-03-26] MEDS: CHOLECALCIFEROL 125 MCG (5000 IU) TABLET PO SCH (09:47)
[2023-03-26] MEDS: APIXABAN 5 MG TAB PO SCH ×2 (09:47→19:55)
[2023-03-26] MEDS: AMIODARONE 200 MG TAB PO SCH ×2 (09:47→19:54)
[2023-03-26] MEDS: ASCORBIC ACID 500 MG TAB PO SCH (09:47)
[2023-03-26 11:38] VITALS: BMI 24.7
--- NOTE | 2023-03-26 11:53 | P.PN ---
Subjective Progress Note Date: 03/26/23 The patient is seen today 03/23/2023 in follow-up in the intensive care unit. He has a regular medical floor overflow. He was extubated on 03/17/2023. He is improved and on room air. 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 He is more awake and alert each day. Following some simple commands. Still very weak and debilitated. He has had issues with atrial fibrillation with rapid ventricular response. He is currently on oral amiodarone. He is currently in sinus rhythm. He's been afebrile. Hemodynamically stable. Glucose 110. He remains on DuoNeb inhalations. Antibiotics in the form of Augmentin. Anticoagulated with Eliquis. He is tolerating a dysphagia level II ground diet. He remains on one-to-one supervision. He remains an aspiration precautions. PEG tube remains in place. The patient is seen today 03/24/2023 in follow-up in the intensive care unit. He remains a regular medical floor overflow. He was subsequently extubated back on 03/17/2023. He remains stable and on room air. No IV fluids. He is tolerating a ground diet dysphagia II. Still getting nourished with vital HPI 85 ML's per hour. PEG tube remains in place. Dietary is working with the patient. He remains on antibiotics in the form of Augmentin. Anticoagulated with Eliquis. Remains in a regular rhythm. Blood sugar 101. The patient is seen today 03/25/2023 in follow-up in the intensive care unit. He has a regular medical floor overflow. He is resting in bed. Awake and alert in no acute distress. Continued on room air. No IV fluids. Being nourished with vital AF at 85 ML's per hour per his PEG tube. He remains on Augmentin. Anticoagulated with Eliquis. Discharge is still pending insurance authorization for inpatient rehabilitation. The patient is seen today 03/26/2023 in follow-up in the intensive care unit. He remains regular medical overflow patient. He sitting up in bed. Awake and alert in no acute distress. Continue good O2 saturations in the 90s on room air. He's afebrile. Hemodynamically stable. He is currently on b ronchodilators. Anticoagulated with Eliquis. Objective - Vital Signs Vital signs: Vital Signs Temp 97.9 F 03/26/23 06:00 Pulse 73 03/26/23 09:35 Resp 14 03/26/23 09:35 BP 119/78 03/26/23 09:35 Pulse Ox 93 L 03/26/23 09:35 FiO2 40 03/17/23 10:28 Intake & Output 03/25/23 03/26/23 03/26/23 18:59 06:59 18:59 Intake Total 930 435 85 Output Total 600 600 0 Balance 330 -165 85 Weight 92.4 kg Intake: Tube Feeding 930 435 85 Output: Urine 600 600 0 Other: Voiding Method External Catheter External Catheter ABP, PAP, CO, CI - Last Documented Arterial Blood Pressure 119/43 - Exam GENERAL EXAM: Alert 77-year-old male, improving speech, comfortable in no apparent distress. HEAD: Normocephalic. EYES: Normal reaction of pupils, equal size. NOSE: Nasogastric tube secured in place. Clear with pink turbinates. THROAT: No erythema or exudates. NECK: No masses, no JVD. CHEST: No chest wall deformity. LUNGS: Equal air entry with few scattered rhonchi. On room air. CVS: S1 and S2 normal with no audible murmur, regular rhythm. ABDOMEN: No hepatosplenomegaly, normal bowel sounds, no guarding or rigidity. SPINE: No scoliosis or deformity SKIN: No rashes CENTRAL NERVOUS SYSTEM: Slow to respond, garbled speech. Tone is normal in all 4 extremities. EXTREMITIES: There is no peripheral edema. No clubbing, no cyanosis. Peripheral pulses are intact. - Labs CBC & Chem 7: 03/25/23 05:37 03/25/23 04:49 Assessment and Plan Assessment: Encephalopathy, secondary to the West Nile virus. Received IVIG. Improving Acute febrile illness and sepsis, no obvious infectious process identified yet, all cultures have been negative. Recovered Leukocytosis, resolved, possible aspiration pneumonia. Acute rhabdomyolysis, significantly elevated CPK, improved Elevated LFTs, ultrasound showed hepatomegaly Elevated troponins, possibly related to supply/demand mismatch Atrial fibrillation with rapid ventricular response. Transitioned to oral amiodarone and Eliquis, currently in sinus rhythm Plan: The patient was seen and evaluated Medications reviewed Remains stable and on room air Awaiting discharge to rehab We will continue to follow I have personally seen and examined the patient, performed the documentation and the assessment and plan as written. Number of minutes spent on the visit: 10.
--- NOTE | 2023-03-26 12:16 | P.PN ---
Subjective Progress Note Date: 03/26/23 CHIEF COMPLAINT: Altered mental status HISTORY OF PRESENT ILLNESS: Patient status post PEG tube placement on 03/16/23. Patient is tolerating tube feeds. Tube feeds currently at a 85 mL per hour. Denies abdominal pain. He is having bowel movements. Patient not eating. Reports to nurse he is full. Awaiting insurance authorization for rehab placement PHYSICAL EXAM: VITAL SIGNS: Reviewed. GENERAL: no acute distress. ABDOMEN: Soft. Nondistended. PEG tube site clean dry and intact ASSESSMENT: 1. Dysphagia 2. Mild protein calorie malnutrition 3. Failed swallow eval 4. West Nile virus encephalitis PLAN: -Continue dysphagia ground diet -Tube feeds per dietitian -Continue supportive care Physician Handle And Vent Machine Operator note has been reviewed by physician. Signing provider agrees with the documented findings, assessment, and plan of care. Objective - Vital Signs Vital signs: Vital Signs Temp 97.9 F 03/26/23 06:00 Pulse 73 03/26/23 09:35 Resp 14 03/26/23 09:35 BP 119/78 03/26/23 09:35 Pulse Ox 93 L 03/26/23 09:35 FiO2 40 03/17/23 10:28 Intake & Output 03/25/23 03/26/23 03/26/23 18:59 06:59 18:59 Intake Total 930 435 455 Output Total 600 600 150 Balance 330 -165 305 Weight 92.4 kg Intake: Tube Feeding 930 435 425 Other 30 Output: Urine 600 600 150 Other: Voiding Method External Catheter External Catheter ABP, PAP, CO, CI - Last Documented Arterial Blood Pressure 119/43 - Labs CBC & Chem 7: 03/25/23 05:37 03/25/23 04:49
--- NOTE | 2023-03-26 15:09 | P.PN ---
Subjective Principal diagnosis: West Nile virus encephalopathy, pneumonia, sepsis, sepsis shock Mr. Avelar is a 77 y.o., right handed, male, who lives in a 2 story home, with 8 KRYSTIN. Prior to admission, he was ambulating without an assistive device. He was independent for basic/advanced ADLs. Current driving: yes. Retired: yes. Support system: , Family He was admitted to [facility] on 02/23. He presented to the ED via EMS with change in mental status. Patient was found on the ground the morning of arrival by his . In the EC his white count was elevated, lactic acid of 4, elevated troponin. Tested negative for influenza type a and B, RSV and COVID. Chest x-ray showed possible pneumonia. Blood cultures were collected which were negative, IV antibiotics were ordered. UA was collected and was negative. Urine culture was negative. CT of the brain showed nothing acute. patient was admitted to the ICU with pneumonia and sepsis/septic shock. Consults to cardiology, neurology and infectious disease were placed. Patient was also seen by pulmonology who had concerns for possible meningitis and West Nile virus. Patient had a work-up for meningitis including lumbar puncture which was ruled out. Eventually the West Nile virus panel came back positive. There was also concern for seizure like activity in the hospital, EEG was ordered. EEG revealed findings suggestive of encephalopathy with no indication of seizures. Patient had an ultrasound of the abdomen and pelvis completed due to elevated LFTs which showed sludge in the gallbladder with hepatomegaly, otherwise it was a limited exam. Hepatitis panel was negative. During his hospital stay he also had an episode of atrial fibrillation with RVR was started on Cardizem and heparin drip. He failed a swallow study and had an NG tube inserted for feeding. 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 Orthopedic was consulted and determined that the cervical changes were likely chronic in nature no acute emergent/urgent changes of the cervical spine. 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 PM&R consulted for rehab recommendations. Therapy evaluations reviewed; patient needing total assist for bathing, total assist for UB dressing, no ability to demonstrate LB dressing, total assist for grooming, assist for toileting, assist for bed mobility 03/12/2023:patient was found in bed with HOB elevated and and daughter at bedside. Patient is lethargic, opens eyes momentarily to repeated name calling and light touch. Patient non verbal at this time. He is not able to respond to/answer questions. He appears comfortable. He does not appear to be in pain. Urinary device in place. NG tube in place. Spoke with family and explained rehabilitation options at discharge. Explained that in the patients current state he is not a candidate for IPR. Also, explained that we will follow with th e patient to assess progress and most fitting rehabilitation plan at discharge. 03/20/2023: Patient had NG tube dislodgment resulting in feedings entering his lungs. Patient was subsequently intubated on 03/14 and extubated on 03/17. He also had issues with SVT which resulted in a amiodarone drip. He did convert back into sinus rhythm. He had a PEG tube placed 03/16. 03/20/23: Patient was found in bed, with head of bed elevated, family at bedside. Neurologist also at bedside who states will sign off case as no further neurological work-up warranted. Patient is awake, alert. No signs of distress noted. Mitchell catheter intact/draining. On room air. Patient converse eating appropriately. Discussed rehabilitation needs with patient and family. Yesterday's evaluations by therapy noted that patient was total assist for bed mobility with no ability to demonstrate other self-care tasks. Anticipate that patient's altered mental status played a role in patient's therapy evaluations. Advised family we will continue to monitor the the patient and progress with therapy and will determine discharge plan when patient is more medically stable and nearing discharge. Therapy evaluations as of 03/20/2023: Total assist for bed mobility, with no ability to demonstrate other self-care abilities. Stand step pivot total assist. 03/23/23:Patient found resting in bed. Reports that he feels better. Denies CP, SOB and abdominal pain. Patient and family looking forward to patient wo rking with therapy gaining strength and endurance and returning home. 03/26/2023:Patient seen and evaluated today. Undergoing breathing treatment. Sleepy. Daughter and at bedside. He is becoming increasingly more alert and cooperative. Pending auth for IPR. No new issues or complaints. Therapy evaluations as of 03/26/2023: Max assist bathing, max assist UB dressing, total assist LB dressing, mod assist grooming, total assist toileting, max assist toilet transfer, max assist bed mobility Objective - Vital Signs Vital signs: Vital Signs Temp 97.9 F 03/26/23 06:00 Pulse 73 03/26/23 09:35 Resp 14 03/26/23 09:35 BP 119/78 03/26/23 09:35 Pulse Ox 93 L 03/26/23 09:35 FiO2 40 03/17/23 10:28 Intake & Output 03/25/23 03/26/23 03/26/23 18:59 06:59 18:59 Intake Total 930 435 455 Output Total 600 600 150 Balance 330 -165 305 Weight 92.4 kg Intake: Tube Feeding 930 435 425 Other 30 Output: Urine 600 600 150 Other: Voiding Method External Catheter External Catheter ABP, PAP, CO, CI - Last Documented Arterial Blood Pressure 119/43 - Exam EXAM: General: WDWN, male, in bed with HOB elevated, family at bedside, NAD Head: Normocephalic, atraumatic. Eyes: symmetric Ears: Symmetric. Hearing within normal limits Mouth: Clear/dry Neck: supple Cardiac: monitor technician in place. Calves supple, non tender, trace bilat LE edema, SCD's in place Lungs: Breathing comfortably on RA. Chest symmetric. Abdomen: Soft, nontender. peg tube in place Extremities: Arthritic changes consistent with age. Neurological: Alert and oriented x 2 (alert to person and place) Speech is clear Cranial nerves: intact Sensation:equal to b/l upper and lower extremities Musculoskeletal: ROM WNL except: bilat shoulder (chronic per family) MMT UE Sh Abd EE EF FABD WE HG Right 3 3+ 3+ 3+ 3+ 4 Left 3 3+ 3+ 3+ 3+ 4 MMT LE HF KE DF EHL Right 3 3+ 3+ 4 Left 3 3+ 3+ 4 Reflexes Biceps Triceps Brachioradialis Patella Achilles Babinski Hoffmans Right 2 2 2 2 Left 2 2 2 2 Skin: Skin intact where visible to head, neck, and bilateral upper and lower extremities EXCEPT: PIV, left chest port Psych: Calm, cooperative - Labs CBC & Chem 7: 03/27/23 04:54 03/27/23 04:54 Assessment and Plan Assessment: #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, pneumonia, sepsis, sepsis shock #West Nile virus encephalopathy -IVIG x3 doses #Altered mental status secondary to above #Acute respiratory failure secondary to aspiration pneumonia - intubation with mechanical ventilation 03/14 extubated 03/17 -IV antibiotics -03/23/23: augmentin -03/26/23: antibiotics completed #Gait impairment/decline in ADLs secondary to above #Rule out seizures -EEG suggestive of encephalopathy with no indication of seizures -Patient remains on Keppra -03/20/23: no longer on keppra #Pneumonia -IV antibiotics -03/23/23: augmentin -03/26/23: antibiotics completed #Elevated troponins secondary to supply/demand mismatch #Rhabdomyolysis -Improving #Elevated LFTs -Hepatitis panel negative, ultrasound showing sludge of the gallbladder and hepatomegaly #Atrial fibrillation with RVR -Rate now controlled on beta-blockers, anticoagulated with Eliquis #s/p SVT -converted #Anxiety -Ativan # Bowel/ Bladder: Nursing to monitor and report concerns if any. -03/12/23: urinary collection system in use # Diet-n.p.o., failed swallow study -s/p peg tube placement -03/23/23:dysphagia II ground diet 1-1 supervision -03/26/2023: Dysphagia III chopped diet one-to-one supervision aspiration precautions # Skin/wound: Skin/Wound care to follow as needed # Pain Management -Tylenol 650 mg every 4 hours as needed, dilaudid 0.5 mg q 4 hours # DVT Prophylaxis: -Eliquis # Comorbidities: No significant medical history was not on any home medications at time of admission # Your medical dx and mgt Goals: Modified Independent mobility and ADLS both basic and advanced; increased functional mobility/strength; increased balance, safety, endurance. Improvement in medical issues through your care. Barriers: Infection, pain, cognition, lethargy, respiratory status Discharge recommendation: IPR at discharge. Patient needing rehabilitation before returning home. Patient meeting criteria for IPR. Patient requiring mod to max assist, making improvements. Authorization submitted 03/23 for patient admission. Patient seen and examined by Dr. Zacarias Note prepped by Sherly Chong
--- NOTE | 2023-03-26 15:17 | P.PN ---
Subjective Progress Note Date: 03/26/23 03/26/2023: Patient was seen for a follow-up. Patient's daughter and patient's were present today. Patient is laying in the bed. Per nurse, he was sitting in the recliner for quite many hours and now just placed back in the bed. He is able to walk with complete assist only couple steps. He is eating some bites otherwise getting nutrition from PEG tube. Patient complaining of "butts hurting". Denies headache. 03/25/2023: Patient was seen for a follow-up. Patient's daughter was present today. She mentions that patient has been napping, ate some lunch. Most of the nutrition he gets to his PEG tube. His taste sensation has been off. Patient offers no complaints. No headache. 03/24/2023: Patient was seen for a follow-up. Patient's 2 daughters were present today. Patient is just completing breathing treatment. He is quite alert and awake, still mildly encephalopathic. 03/23/2023: Patient was seen for a follow-up. Over last 7 days, patient was followed up by Dr. Lopez. Please refer to his notes for detail. Patient's two sons were present today. They mentioned that patient was extubated on 03/16/2023. He had undergone PEG placement. Patient then he came out of anesthesia for PEG tube, started talking. He is talking much better, as per examination below. He appears very comfortable. 03/14/2023: Patient was seen for a follow-up. Patient apparently turn for the worse. Patient's NG tube partially came out, and he was getting feeds through the NG tube. Patient aspirated. Patient was placed on facemask, and patient vomited and further aspirated. Patient was intubated, and transferred to ICU. Patient started again on Zosyn. Patient is critically sick. Patient is currently on Levophed 0.25 micrograms per kilogram per minute (86.25 mL per hour), propofol 45 mcg/kg per minute, IV fluids. 03/13/2023: Patient was seen for a follow-up. Family members were not present today. Patient is much more alert and awake. He is trying to make some sounds, but unintelligible. His mouth has dried phlegm. Coated tongue and some lips. Patient continues to be severely encephalopathic. 03/12/2023 patient was seen for follow-up. Patient's family members are present. Patient overall remained same. He nods "no" for headache he is slightly more awake since decreasing the dose of Keppra. 03/10/2023: Patient was seen for a follow-up. Patient's family members were present. They mentioned that patient was getting better when the shunt was receiving IV vitamins and been patient received IVIG. They were recommending IV vitamin D, zinc and some other vitamins. I informed that vitamin D excess can produce toxicity. Likewise zinc is typically given orally. Patient clinically not much change. Telemetry monitoring showing sinus rhythm with sinus bradycardia in the 40s, with some PVCs, PACs. Previously had SVT and A. fib. 03/09/2023: Patient was seen for follow-up. Patient's family members are present. Patient over the last 1 week has been followed up by Dr. Jose G Lopez. Please refer to his notes for details. 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 Family members states that patient is not much better. He is talking very minimal. Last week he was trying to talk. However he is not speaking much now. Patient apparently also has received 3 days of IVIG. 03/01/2023: Patient was seen for a follow-up. Patient's older daughter, and patient's 2 sons were present today. Patient's daughter believes that he was much more awake earlier today, with eyes were more widely open. He did not talk, but did new walked was around. Looking at the family more obviously. Patient's family has mentioned that patient does work in the yard, cuts his own grass, and on the Day weekend, the event to watch the [employer] football game. He regularly goes out for a walk with his . He may have been exposed to mosquitoes. Patient was fine until Thursday when he stopped talking and presented to the ER. Objective - Vital Signs Vital signs: Vital Signs Temp 97.7 F 03/26/23 14:00 Pulse 78 03/26/23 14:53 Resp 20 03/26/23 14:00 BP 112/67 03/26/23 14:00 Pulse Ox 95 03/26/23 14:00 FiO2 40 03/17/23 10:28 Intake & Output 03/25/23 03/26/23 03/26/23 18:59 06:59 18:59 Intake Total 930 435 455 Output Total 600 600 150 Balance 330 -165 305 Weight 92.4 kg Intake: Tube Feeding 930 435 425 Other 30 Output: Urine 600 600 150 Other: Voiding Method External Catheter External Catheter ABP, PAP, CO, CI - Last Documented Arterial Blood Pressure 119/43 - Exam Patient is almost fully alert and awake. He is pleasant, smiling. His speech and language functions are clear. No aphasia. Patient knows it is [facility] in [place]. He could not tell the current month or the year. Attention span is quite diminished. Fund of knowledge is somewhat limited. His face is symmetric. His pupils are round and reacting. Visual myers are full on confrontation with no neglect. 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 Deltoid is 3+/4+, hip flexion 4 4-/4 4-, ankle dorsiflexion 5/3+. In the left ankle, patient somewhat flaps his foot up and down like clonus but would not able to dorsiflex it with any resistance. - Labs CBC & Chem 7: 03/25/23 05:37 03/25/23 04:49 Assessment and Plan Assessment: * Acute encephalopathy due to West Nile virus, much improved. * Status post aspiration pneumonia, respiratory distress, status post intubation, now extubated on 03/26/2023. * Acute metabolic encephalopathy likely from severe pneumonia and West Nile virus, much improved. * Left leg/foot weakness, possibly due to West Nile virus. * SIRS, pneumonia * Acute rhabdomyolysis, resolved, most recent CK 54 on 03/20/2023. * MRI cervical spine showed moderate spinal stenosis at C3-C4 level. * Generalized weakness, multifactorial, due to above conditions. * Elevated cardiac enzymes * New onset atrial fibrillation currently on Eliquis. * History of bilateral shoulder pain/arthritis * History of bilateral knee replacement. Plan: * Patient is doing much better. His mentation, strength is improving. He still has moderate left leg weakness particularly in the ankle dorsiflexion. This may get better with therapy. * Patient has been treated with Zosyn, now on Augmentin. * MRI Brain w/ and w/o: Was reported as no evidence for encephalitis. No evidence of intracranial mass, acute/subacute infarct or abnormal enhancement. Nonspecific white matter changes, likely related to small vessel ischemic disease. * Repeat EEG performed 03/01/2023 was abnormal due to background slowing of moderate degree consistent with encephalopathy. No epileptiform activity was seen. When compared to the initial EEG from 02/24/2023, the background seems to have gotten worse. * Patient is off Keppra since 03/13/2023. This was initiated empirically for tremors, which were probably not seizures, rather more related to West Nile virus. * CSF performed 02/24/2023 was colorless and clear. CSF glucose 52, protein 86 (12-60). WBC count 4, RBCs 358. Comprehensive viral detection negative. 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 For west nile it is usually supportive care. * MRI Cervical spine w/ and w/o: Is reported as mild to moderate multilevel degenerative disc disease with scattered facet and uncovertebral joint. Appendectomy. Degenerative grade 1 anterolisthesis C7 to T1. Moderate focal signal canal stenosis at C3-C4 with abutment and flattening of both the dorsal and ventral cord. Sagittal FLAIR sequence suggest some focal cord edema here. Correlate for myelopathic symptoms. The axial images are essentially nondiagnostic due to patient motion. Unable to adequately assess then neuroforamen. Dr. Lopez has consulted the orthopedic surgery team and they evaluated patient and no surgical intervention. On my review of MRI, there is moderate spinal stenosis at C3 4 level. No significant cord signal changes. * Cardiology on board for new onset atrial fibrillation. Patient currently on Eliquis. * Other management as per IM, critical care team. * Patient appears to be a good candidate for inpatient rehabilitation. Discussed with patient's daughters in detail. Neurologically clear for transfer to inpatient rehab. Await insurance authorization.
--- NOTE | 2023-03-26 15:41 | P.PN ---
Subjective Progress Note Date: 03/25/23 Principal diagnosis: Fever Patient is a 77-year-old male presenting to the hospital y after the patient was found to be unresponsive by the , patient has been febrile initial testing negative including LP which was only mildly elevated protein. 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 On today's evaluation that is 03/25/2023, the patient remains to be afebrile the patient is breathing comfortably on room air, the patient denies chest pain, shortness of breath or cough, patient denies nausea/vomiting , no diarrhea and no abdominal pain Patient did have white count of 8.1, creatinine 0.70 Objective - Vital Signs Vital signs: Vital Signs Temp 98.5 F 03/25/23 12:00 Pulse 70 03/25/23 12:00 Resp 24 03/25/23 12:00 BP 136/73 03/25/23 12:00 Pulse Ox 98 03/25/23 12:00 FiO2 40 03/17/23 10:28 Intake & Output 03/24/23 03/25/23 03/25/23 18:59 06:59 18:59 Intake Total 425 700 340 Output Total 750 550 200 Balance -325 150 140 Weight 92.4 kg Intake: Tube Feeding 425 700 340 Output: Urine 750 550 200 Other: Voiding Method External Catheter External Catheter External Catheter # Voids 1 # Bowel Movements 1 ABP, PAP, CO, CI - Last Documented Arterial Blood Pressure 119/43 - Exam GENERAL DESCRIPTION: An elderly male lying in bed in no distress RESPIRATORY SYSTEM: Unlabored breathing , coarse breath sounds bilaterally HEART: S1 S2 regular rate and rhythm , ABDOMEN: Soft , no tenderness EXTREMITIES: No edema feet - Labs CBC & Chem 7: 03/25/23 05:37 03/25/23 04:49 Labs: Abnormal Lab Results - Last 24 Hours (Table) 03/25/23 03/25/23 Range/Units 04:49 05:37 RBC 4.05 L (4.30-5.90) m/uL Sodium 135 L (137-145) mmol/L BUN 28 H (9-20) mg/dL Glucose 107 H (74-99) mg/dL ALT 54 H (4-49) U/L C-Reactive Protein 2.1 H (<1.0) mg/dL Assessment and Plan (1) Fever Current Visit: Yes Status: Acute Code(s): R50.9 - FEVER, UNSPECIFIED SNOMED Code(s): 315761511 (2) Pneumonia Current Visit: Yes Status: Acute Code(s): J18.9 - PNEUMONIA, UNSPECIFIED ORGANISM SNOMED Code(s): 492093939 (3) West Nile Virus infection Current Visit: Yes Status: Acute Code(s): A92.30 - WEST NILE VIRUS INFECTION, UNSPECIFIED SNOMED Code(s): 133859172 Plan: 1patient with encephalitis/meningitis ,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, the treatment is mostly supportive, there is some role for immunoglobulin infusion which the patient has already received 2-episode of vomiting aspiration and acute respiratory failure requiring intubation--, patient with likely aspiration pneumonia, blood and sputum culture currently negative 3-patient has shown clinical improvement the patient is afebrile white count has normalized, patient has received adequate antibiotic therapy we will discontinue Augmentin and monitor the patient closely off antibiotic therapy Dictation was produced using [employer] dictation software. please excuse any grammatical, word or spelling errors. Time with Patient: Less than 30
--- NOTE | 2023-03-26 15:42 | P.PN ---
Subjective Progress Note Date: 03/26/23 Principal diagnosis: Fever Patient is a 77-year-old male presenting to the hospital y after the patient was found to be unresponsive by the , patient has been febrile initial testing negative including LP which was only mildly elevated protein. 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 On today's evaluation that is 03/26/2023, the patient denies any fever or any chills, the patient is breathing comfortably on room air and no need for supplemental oxygen , the patient denies chest pain or cough, patient denies abdominal pain, no nausea/vomiting and no diarrhea has been reported Patient did have white count of 8.1, creatinine 0.70 as of yesterday no lab done today Objective - Vital Signs Vital signs: Vital Signs Temp 97.9 F 03/26/23 06:00 Pulse 73 03/26/23 09:35 Resp 14 03/26/23 09:35 BP 119/78 03/26/23 09:35 Pulse Ox 93 L 03/26/23 09:35 FiO2 40 03/17/23 10:28 Intake & Output 03/25/23 03/26/23 03/26/23 18:59 06:59 18:59 Intake Total 930 435 455 Output Total 600 600 150 Balance 330 -165 305 Weight 92.4 kg Intake: Tube Feeding 930 435 425 Other 30 Output: Urine 600 600 150 Other: Voiding Method External Catheter External Catheter ABP, PAP, CO, CI - Last Documented Arterial Blood Pressure 119/43 - Exam GENERAL DESCRIPTION: An elderly male lying in bed in no distress RESPIRATORY SYSTEM: Unlabored breathing , coarse breath sounds bilaterally HEART: S1 S2 regular rate and rhythm , ABDOMEN: Soft , no tenderness EXTREMITIES: No edema feet - Labs CBC & Chem 7: 03/25/23 05:37 03/25/23 04:49 Assessment and Plan (1) Fever Current Visit: Yes Status: Acute Code(s): R50.9 - FEVER, UNSPECIFIED SNOMED Code(s): 510487974 (2) Pneumonia Current Visit: Yes Status: Acute Code(s): J18.9 - PNEUMONIA, UNSPECIFIED ORGANISM SNOMED Code(s): 214961467 (3) West Nile Virus infection Current Visit: Yes Status: Acute Code(s): A92.30 - WEST NILE VIRUS INFECTION, UNSPECIFIED SNOMED Code(s): 244001242 Plan: 1patient with encephalitis/meningitis ,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, the treatment is mostly supportive, there is some role for immunoglobulin infusion which the patient has already received 2-episode of vomiting aspiration and acute respiratory failure requiring intubation--, patient with likely aspiration pneumonia, blood and sputum culture currently negative 3-patient has shown clinical improvement the patient is afebrile white count has normalized, patient has received adequate antibiotic therapy for underlying pneumonia and is currently being monitored closely off antibiotic therapy Dictation was produced using [employer] dictation software. please excuse any grammatical, word or spelling errors. Time with Patient: Less than 30
[2023-03-26] MEDS: METOPROLOL TARTRATE 50 MG TAB PO SCH (19:01)
[2023-03-26] MEDS: MELATONIN 5 MG TABLET PO SCH (19:54)
[2023-03-26] MEDS: SODIUM CHLORIDE 0.9% 500 ML 500 ML IV SCH (19:55)
[2023-03-26 19:57] LABS: Glucose,Whole Blood 105 mg/dL (70-110)
[2023-03-27 00:22] LABS: Glucose,Whole Blood 106 mg/dL (70-110)
[2023-03-27 00:30] LABS: Glucose,Whole Blood 112 mg/dL (70-110)
[2023-03-27 05:30] LABS: HCT 37.3 % (39.0-53.0); HGB 12.6 gm/dL (13.0-17.5); MCH 33.5 pg (25.0-35.0); MCHC 33.8 g/dL (31.0-37.0); MCV 99.1 fL (80.0-100.0); Macrocytosis Slight; Mean Platelet Volume 7.1; Platelet Count 261 k/uL (150-450); RBC 3.76 m/uL (4.30-5.90); RDW 13.9 % (11.5-15.5); WBC 9.9 k/uL (3.8-10.6)
[2023-03-27 05:37] LABS: AST 36 U/L (17-59); African American GFR (CKD) >90 (>60 ml/min/1.73 sqM); Albumin 3.6 g/dL (3.5-5.0); Anion Gap 10 mmol/L; Blood Urea Nitrogen 28 mg/dL (9-20); Carbon Dioxide 25 mmol/L (22-30); Chloride 101 mmol/L (98-107); Glucose 99 mg/dL (74-99); Non-African American GFR(CKD) >90 (>60 ml/min/1.73 sqM); Potassium 4.1 mmol/L (3.5-5.1); Sodium 136 mmol/L (137-145); Total Bilirubin 0.8 mg/dL (0.2-1.3); Total Protein 7.6 g/dL (6.3-8.2)
[2023-03-27 05:38] LABS: ALT 49 U/L (4-49); Alkaline Phosphatase 76 U/L (38-126)
[2023-03-27 06:17] LABS: Glucose,Whole Blood 124 mg/dL (70-110)
[2023-03-27] MEDS: IPRATROPIUM-ALBUTEROL 3 ML NEB INHALATION SCH ×3 (08:01→19:25)
[2023-03-27] MEDS: polyethylene glycoL 3350 17 GM POWD.PACK PO SCH (08:49)
[2023-03-27] MEDS: PANTOPRAZOLE 40 MG/10 ML VIAL IVP SCH (08:49)
[2023-03-27] MEDS: CHOLECALCIFEROL 125 MCG (5000 IU) TABLET PO SCH (08:49)
[2023-03-27] MEDS: AMIODARONE 200 MG TAB PO SCH (08:49)
[2023-03-27] MEDS: LACTOBACILLUS ACIDOPHILUS/PECT 1 EACH CAPSULE PO SCH ×3 (08:49→20:56)
[2023-03-27] MEDS: APIXABAN 5 MG TAB PO SCH ×2 (08:49→20:56)
[2023-03-27] MEDS: ZINC SULFATE 220 MG CAP PO SCH (08:49)
[2023-03-27] MEDS: ASCORBIC ACID 500 MG TAB PO SCH (08:49)
--- NOTE | 2023-03-27 08:52 | P.PN ---
Subjective Principal diagnosis: Altered mental status This is 77-year-old white male with no significant past medical history came in and septic shock and questionable pneumonia. He was significant tachycardia with hypotension and was placed in ICU for observation. He continues to have significant mental status changes. Question febrile seizure element. Temperature is improved IV Tylenol has been administered. Appreciate multiple consultants input. The patient is back to his mental baseline. Objective - Vital Signs Vital signs: Vital Signs Temp 98 F 03/27/23 04:00 Pulse 67 03/27/23 08:11 Resp 23 03/27/23 04:00 BP 122/73 03/27/23 04:00 Pulse Ox 95 03/27/23 04:00 FiO2 40 03/17/23 10:28 Intake & Output 03/26/23 03/27/23 03/27/23 18:59 06:59 18:59 Intake Total 1005 185 Output Total 150 400 Balance 855 -215 Weight 92.4 kg 88.9 kg Intake: Oral 120 Tube Feeding 945 65 Other 60 Output: Urine 150 400 Other: Voiding Method External Catheter External Catheter # Voids 0 # Bowel Movements 0 ABP, PAP, CO, CI - Last Documented Arterial Blood Pressure 119/43 - Constitutional General appearance: Present: cooperative, no acute distress - EENT Eyes: Absent: abnormal pupil - Neck Neck: Absent: lymphadenopathy - Respiratory Respiratory: bilateral: CTA - Cardiovascular Rhythm: regular Heart sounds: normal: S1, S2 Abnormal Heart Sounds: Absent: S3 Gallop - Gastrointestinal General gastrointestinal: Present: soft. Absent: tenderness - Neurologic Neurologic: Present: CNII-XII intact - Labs CBC & Chem 7: 03/27/23 04:54 03/27/23 04:54 Labs: Abnormal Lab Results - Last 24 Hours (Table) 03/27/23 03/27/23 03/27/23 Range/Units 00:29 04:54 04:54 RBC 3.76 L (4.30-5.90) m/uL Hgb 12.6 L (13.0-17.5) gm/dL Hct 37.3 L (39.0-53.0) % Sodium 136 L (137-145) mmol/L BUN 28 H (9-20) mg/dL POC Glucose (mg/dL) 112 H (70-110) mg/dL 03/27/23 Range/Units 06:15 RBC (4.30-5.90) m/uL Hgb (13.0-17.5) gm/dL Hct (39.0-53.0) % Sodium (137-145) mmol/L BUN (9-20) mg/dL POC Glucose (mg/dL) 124 H (70-110) mg/dL Assessment and Plan (1) Altered mental status Current Visit: Yes Status: Acute Code(s): R41.82 - ALTERED MENTAL STATUS, UNSPECIFIED SNOMED Code(s): 037584333 (2) Pneumonia Current Visit: Yes Status: Acute Code(s): J18.9 - PNEUMONIA, UNSPECIFIED ORGANISM SNOMED Code(s): 301748907 (3) Septic shock Current Visit: Yes Status: Acute Code(s): A41.9 - SEPSIS, UNSPECIFIED ORGANISM; R65.21 - SEVERE SEPSIS WITH SEPTIC SHOCK SNOMED Code(s): 95104772 (4) West Nile fever Current Visit: Yes Status: Acute Code(s): A92.30 - WEST NILE VIRUS INFECTION, UNSPECIFIED SNOMED Code(s): 400116678 Plan: Patient will hopefully be discharged inpatient rehab. Anticipate pulling PEG tube prior to discharge. Check appropriate CBC and CMP in a.m. Encephalitis is resolved.
--- NOTE | 2023-03-27 11:48 | P.PN ---
Subjective Progress Note Date: 03/27/23 The patient is seen today 03/23/2023 in follow-up in the intensive care unit. He has a regular medical floor overflow. He was extubated on 03/17/2023. He is improved and on room air. 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 He is more awake and alert each day. Following some simple commands. Still very weak and debilitated. He has had issues with atrial fibrillation with rapid ventricular response. He is currently on oral amiodarone. He is currently in sinus rhythm. He's been afebrile. Hemodynamically stable. Glucose 110. He remains on DuoNeb inhalations. Antibiotics in the form of Augmentin. Anticoagulated with Eliquis. He is tolerating a dysphagia level II ground diet. He remains on one-to-one supervision. He remains an aspiration precautions. PEG tube remains in place. The patient is seen today 03/24/2023 in follow-up in the intensive care unit. He remains a regular medical floor overflow. He was subsequently extubated back on 03/17/2023. He remains stable and on room air. No IV fluids. He is tolerating a ground diet dysphagia II. Still getting nourished with vital HPI 85 ML's per hour. PEG tube remains in place. Dietary is working with the patient. He remains on antibiotics in the form of Augmentin. Anticoagulated with Eliquis. Remains in a regular rhythm. Blood sugar 101. The patient is seen today 03/25/2023 in follow-up in the intensive care unit. He has a regular medical floor overflow. He is resting in bed. Awake and alert in no acute distress. Continued on room air. No IV fluids. Being nourished with vital AF at 85 ML's per hour per his PEG tube. He remains on Augmentin. Anticoagulated with Eliquis. Discharge is still pending insurance authorization for inpatient rehabilitation. The patient is seen today 03/26/2023 in follow-up in the intensive care unit. He remains regular medical overflow patient. He sitting up in bed. Awake and alert in no acute distress. Continue good O2 saturations in the 90s on room air. He's afebrile. Hemodynamically stable. He is currently on b ronchodilators. Anticoagulated with Eliquis. The patient is seen today 03/27/2023 in follow-up in the intensive care unit. He is a overflow patient from [facility]. He is awake and alert. Currently maintaining good O2 saturations in the 90s on room air. No IV fluids. He is being nourished with vital AF at 65 ML's per hour. He has trialed on a dysphagia level III chopped diet with one-to-one supervision and aspiration precautions. Blood, urine, sputum cultures all negative. White count 9.9. Hemoglobin 12.6. Platelets 261. Sodium 136. Potassium 4.1. Bicarb 25. BUN 28. Creatinine 0.68. Glucose 99. He remains on bronchodilators. Anticoagulated with Eliquis. Objective - Vital Signs Vital signs: Vital Signs Temp 98.0 F 03/27/23 08:00 Pulse 73 03/27/23 09:00 Resp 25 H 03/27/23 09:00 BP 126/80 03/27/23 09:00 Pulse Ox 95 03/27/23 04:00 FiO2 40 03/17/23 10:28 Intake & Output 03/26/23 03/27/23 03/27/23 18:59 06:59 18:59 Intake Total 1005 185 Output Total 150 400 Balance 855 -215 Weight 92.4 kg 88.9 kg Intake: Oral 120 Tube Feeding 945 65 Other 60 Output: Urine 150 400 Other: Voiding Method External Catheter External Catheter External Catheter # Voids 0 1 # Bowel Movements 0 ABP, PAP, CO, CI - Last Documented Arterial Blood Pressure 119/43 - Exam GENERAL EXAM: Alert and improving 77-year-old male, on room air, comfortable in no apparent distress. HEAD: Normocephalic. EYES: Normal reaction of pupils, equal size. NOSE: Nasogastric tube secured in place. Clear with pink turbinates. THROAT: No erythema or exudates. NECK: No masses, no JVD. CHEST: No chest wall deformity. LUNGS: Equal air entry with few scattered rhonchi. On room air. CVS: S1 and S2 normal with no audible murmur, regular rhythm. ABDOMEN: No hepatosplenomegaly, normal bowel sounds, no guarding or rigidity. SPINE: No scoliosis or deformity SKIN: No rashes CENTRAL NERVOUS SYSTEM: Slow to respond, garbled speech. Tone is normal in all 4 extremities. EXTREMITIES: There is no peripheral edema. No clubbing, no cyanosis. Peripheral pulses are intact. - Labs CBC & Chem 7: 03/27/23 04:54 03/27/23 04:54 Labs: Abnormal Lab Results - Last 24 Hours (Table) 03/27/23 03/27/23 03/27/23 Range/Units 00:29 04:54 04:54 RBC 3.76 L (4.30-5.90) m/uL Hgb 12.6 L (13.0-17.5) gm/dL Hct 37.3 L (39.0-53.0) % Sodium 136 L (137-145) mmol/L BUN 28 H (9-20) mg/dL POC Glucose (mg/dL) 112 H (70-110) mg/dL 03/27/23 Range/Units 06:15 RBC (4.30-5.90) m/uL Hgb (13.0-17.5) gm/dL Hct (39.0-53.0) % Sodium (137-145) mmol/L BUN (9-20) mg/dL POC Glucose (mg/dL) 124 H (70-110) mg/dL Assessment and Plan Assessment: Encephalopathy, secondary to the West Nile virus. Received IVIG. Improving Acute febrile illness and sepsis, no obvious infectious process identified yet, all cultures have been negative. Recovered Leukocytosis, resolved, possible aspiration pneumonia. Acute rhabdomyolysis, significantly elevated CPK, improved Elevated LFTs, ultrasound showed hepatomegaly Elevated troponins, possibly related to supply/demand mismatch Atrial fibrillation with rapid ventricular response. Transitioned to oral amiodarone and Eliquis, currently in sinus rhythm Plan: The patient was seen and evaluated Medications and labs reviewed Amiodarone decreased to 200 mg daily Remains stable and on room air Awaiting discharge to rehab We will continue to follow I have personally seen and examined the patient, performed the documentation and the assessment and plan as written. Number of minutes spent on the visit: 10.
--- NOTE | 2023-03-27 12:31 | P.PN ---
Subjective Progress Note Date: 03/27/23 03/27/2023: Patient was seen for a follow-up. Patient is reclining in the bed. He is neurologically stable. He is smiling, complaining of "butts hurting". Denies headache. Patient's daughter and patient's were also present. Also discussed with Mr. Berg, employment case manager. Still awaiting insurance authorization. Patient's labs reviewed, stable. 03/26/2023: Patient was seen for a follow-up. Patient's daughter and patient's were present today. Patient is laying in the bed. Per nurse, he was sitting in the recliner for quite many hours and now just placed back in the bed. He is able to walk with complete assist only couple steps. He is eating some bites otherwise getting nutrition from PEG tube. Patient complaining of "butts hurting". Denies headache. 03/25/2023: Patient was seen for a follow-up. Patient's daughter was present today. She mentions that patient has been napping, ate some lunch. Most of the nutrition he gets to his PEG tube. His taste sensation has been off. Patient offers no complaints. No headache. 03/24/2023: Patient was seen for a follow-up. Patient's 2 daughters were pr esent today. Patient is just completing breathing treatment. He is quite alert and awake, still mildly encephalopathic. 03/23/2023: Patient was seen for a follow-up. Over last 7 days, patient was followed up by Dr. Lopez. Please refer to his notes for detail. Patient's two sons were present today. They mentioned that patient was extubated on 03/16/2023. He had undergone PEG placement. Patient then he came out of anesthesia for PEG tube, started talking. He is talking much better, as per examination below. He appears very comfortable. 03/14/2023: Patient was seen for a follow-up. Patient apparently turn for the worse. Patient's NG tube partially came out, and he was getting feeds through the NG tube. Patient aspirated. Patient was placed on facemask, and patient vomited and further aspirated. Patient was intubated, and transferred to ICU. Patient started again on Zosyn. Patient is critically sick. Patient is c urrently on Levophed 0.25 micrograms per kilogram per minute (86.25 mL per hour), propofol 45 mcg/kg per minute, IV fluids. 03/13/2023: Patient was seen for a follow-up. Family members were not present today. Patient is much more alert and awake. He is trying to make some sounds, but unintelligible. His mouth has dried phlegm. Coated tongue and some lips. Patient continues to be severely encephalopathic. 03/12/2023 patient was seen for follow-up. Patient's family members are present. Patient overall remained same. He nods "no" for headache he is slightly more awake since decreasing the dose of Keppra. 03/10/2023: Patient was seen for a follow-up. Patient's family members were present. They mentioned that patient was getting better when the shunt was receiving IV vitamins and been patient received IVIG. They were recommending IV vitamin D, zinc and some other vitamins. I informed that vitamin D excess can produce toxicity. Likewise zinc is typically given orally. Patient clinically not much change. Telemetry monitoring showing sinus rhythm with sinus bradycardia in the 40s, with some PVCs, PACs. Previously had SVT and A. fib. 03/09/2023: Patient was seen for follow-up. Patient's family members are present. Patient over the last 1 week has been followed up by Dr. Jose G Lopez. Please refer to his notes for details. 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 Family members states that patient is not much better. He is talking very minimal. Last week he was trying to talk. However he is not speaking much now. Patient apparently also has received 3 days of IVIG. 03/01/2023: Patient was seen for a follow-up. Patient's older daughter, and patient's 2 sons were present today. Patient's daughter believes that he was much more awake earlier today, with eyes were more widely open. He did not talk, but did new walked was around. Looking at the family more obviously. Patient's family has mentioned that patient does work in the yard, cuts his own grass, and on the Day weekend, the event to watch the grandson's football game. He regularly goes out for a walk with his . He may have been exposed to mosquitoes. Patient was fine until Thursday when he stopped talking and presented to the ER. Objective - Vital Signs Vital signs: Vital Signs Temp 98.0 F 03/27/23 08:00 Pulse 73 03/27/23 09:00 Resp 25 H 03/27/23 09:00 BP 126/80 03/27/23 09:00 Pulse Ox 95 03/27/23 04:00 FiO2 40 03/17/23 10:28 Intake & Output 03/26/23 03/27/23 03/27/23 18:59 06:59 18:59 Intake Total 1005 185 Output Total 150 400 Balance 855 -215 Weight 92.4 kg 88.9 kg Intake: Oral 120 Tube Feeding 945 65 Other 60 Output: Urine 150 400 Other: Voiding Method External Catheter External Catheter External Catheter # Voids 0 1 # Bowel Movements 0 ABP, PAP, CO, CI - Last Documented Arterial Blood Pressure 119/43 - Exam Patient is almost fully alert and awake. He is pleasant, smiling. His speech and language functions are clear. No aphasia. Patient knows it is [facility] in [place]. He could not tell the current month or the year. Attention span is quite diminished. Fund of knowledge is somewhat limited. His face is symmetric. His pupils are round and reacting. Visual myers are full on confrontation with no neglect. On muscle strength testing, his biceps, triceps and nursery manager are normal. Deltoid is 3+/4+, hip flexion 4 4-/4 4-, ankle dorsiflexion 5/3+. In the left ankle, patient somewhat flaps his foot up and down like clonus but would not able to dorsiflex it with any resistance. The right ankle dorsiflexion is normal. He has slow mentation, prolonged latency to answer questions. - Labs CBC & Chem 7: 03/27/23 04:54 03/27/23 04:54 Labs: Abnormal Lab Results - Last 24 Hours (Table) 03/27/23 03/27/23 03/27/23 Range/Units 00:29 04:54 04:54 RBC 3.76 L (4.30-5.90) m/uL Hgb 12.6 L (13.0-17.5) gm/dL Hct 37.3 L (39.0-53.0) % Sodium 136 L (137-145) mmol/L BUN 28 H (9-20) mg/dL POC Glucose (mg/dL) 112 H (70-110) mg/dL 03/27/23 Range/Units 06:15 RBC (4.30-5.90) m/uL Hgb (13.0-17.5) gm/dL Hct (39.0-53.0) % Sodium (137-145) mmol/L BUN (9-20) mg/dL POC Glucose (mg/dL) 124 H (70-110) mg/dL Assessment and Plan Assessment: * Acute encephalopathy due to West Nile virus, much improved. * Status post aspiration pneumonia, respiratory distress, status post intubation, now extubated on 03/26/2023. * Acute metabolic encephalopathy likely from severe pneumonia and West Nile virus, much improved. * Left leg/foot weakness, possibly due to West Nile virus. * SIRS, pneumonia * Acute rhabdomyolysis, resolved, most recent CK 54 on 03/20/2023. * MRI cervical spine showed moderate spinal stenosis at C3-C4 level. * Generalized weakness, multifactorial, due to above conditions. * Elevated cardiac enzymes * New onset atrial fibrillation currently on Eliquis. * History of bilateral shoulder pain/arthritis * History of bilateral knee replacement. Plan: * Patient is doing much better. His mentation, strength is improving. He still has moderate left leg weakness particularly in the ankle dorsiflexion. This may get better with therapy. * Patient has been treated with Zosyn, now on Augmentin. * MRI Brain w/ and w/o: Was reported as no evidence for encephalitis. No evidence of intracranial mass, acute/subacute infarct or abnormal enhancement. Nonspecific white matter changes, likely related to small vessel ischemic disease. * Repeat EEG performed 03/01/2023 was abnormal due to background slowing of moderate degree consistent with encephalopathy. No epileptiform activity was seen. When compared to the initial EEG from 02/24/2023, the background seems to have gotten worse. * Patient is off Keppra since 03/13/2023. This was initiated empirically for tr emors, which were probably not seizures, rather more related to West Nile virus. * CSF performed 02/24/2023 was colorless and clear. CSF glucose 52, protein 86 (12-60). WBC count 4, RBCs 358. Comprehensive viral detection negative. 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 For west nile it is usually supportive care. Patient has received immunomodulatory treatment with the course of IVIG for 3 days. * MRI Cervical spine w/ and w/o: Is reported as mild to moderate multilevel degenerative disc disease with scattered facet and uncovertebral joint. Appendectomy. Degenerative grade 1 anterolisthesis C7 to T1. Moderate focal signal canal stenosis at C3-C4 with abutment and flattening of both the dorsal and ventral cord. Sagittal FLAIR sequence suggest some focal cord edema here. Correlate for myelopathic symptoms. The axial images are essentially nondiagnostic due to patient motion. Unable to adequately assess then neuroforamen. Dr. Lopez has consulted the orthopedic surgery team and they evaluated patient and no surgical intervention. On my review of MRI, there is moderate spinal stenosis at C3 4 level. No significant cord signal changes. * Cardiology on board for new onset atrial fibrillation. Patient currently on Eliquis. * Other management as per IM, critical care team. * Patient appears to be a good candidate for inpatient rehabilitation. Discussed with patient's daughters in detail. Neurologically clear for transfer to inpatient rehab. Await insurance authorization.
--- NOTE | 2023-03-27 12:59 | P.PN ---
Subjective Progress Note Date: 03/27/23 CHIEF COMPLAINT: Altered mental status HISTORY OF PRESENT ILLNESS: Patient status post PEG tube placement on 03/16/23. Patient is tolerating tube feeds. Tube feeds rate decreased per awning maker to help with trying to increase oral intake. Denies abdominal pain. He is having bowel movements. Awaiting insurance authorization for rehab placement PHYSICAL EXAM: VITAL SIGNS: Reviewed. GENERAL: no acute distress. ABDOMEN: Soft. Nondistended. PEG tube site clean dry and intact ASSESSMENT: 1. Dysphagia 2. Mild protein calorie malnutrition 3. Failed swallow eval 4. West Nile virus encephalitis PLAN: -Continue dysphagia ground diet -Tube feeds per dietitian -Continue supportive care Physician Investment Manager note has been reviewed by physician. Signing provider agrees with the documented findings, assessment, and plan of care. Objective - Vital Signs Vital signs: Vital Signs Temp 98.0 F 03/27/23 08:00 Pulse 73 03/27/23 09:00 Resp 25 H 03/27/23 09:00 BP 126/80 03/27/23 09:00 Pulse Ox 95 03/27/23 04:00 FiO2 40 03/17/23 10:28 Intake & Output 03/26/23 03/27/23 03/27/23 18:59 06:59 18:59 Intake Total 1005 185 Output Total 150 400 Balance 855 -215 Weight 92.4 kg 88.9 kg Intake: Oral 120 Tube Feeding 945 65 Other 60 Output: Urine 150 400 Other: Voiding Method External Catheter External Catheter External Catheter # Voids 0 # Bowel Movements 0 ABP, PAP, CO, CI - Last Documented Arterial Blood Pressure 119/43 - Labs CBC & Chem 7: 03/27/23 04:54 03/27/23 04:54 Labs: Abnormal Lab Results - Last 24 Hours (Table) 03/27/23 03/27/23 03/27/23 Range/Units 00:29 04:54 04:54 RBC 3.76 L (4.30-5.90) m/uL Hgb 12.6 L (13.0-17.5) gm/dL Hct 37.3 L (39.0-53.0) % Sodium 136 L (137-145) mmol/L BUN 28 H (9-20) mg/dL POC Glucose (mg/dL) 112 H (70-110) mg/dL 03/27/23 Range/Units 06:15 RBC (4.30-5.90) m/uL Hgb (13.0-17.5) gm/dL Hct (39.0-53.0) % Sodium (137-145) mmol/L BUN (9-20) mg/dL POC Glucose (mg/dL) 124 H (70-110) mg/dL
--- NOTE | 2023-03-27 16:06 | P.PN ---
Subjective Progress Note Date: 03/27/23 Principal diagnosis: Fever Patient is a 77-year-old male presenting to the hospital y after the patient was found to be unresponsive by the , patient has been febrile initial testing negative including LP which was only mildly elevated protein. Patient did have a episode of vomiting followed by worsening of his respiratory status initially on BiPAP subsequently ended up getting intubated documentum consultant of 03/14/2023 On today's evaluation that is 03/27/2023, the patient remains to be afebrile the patient is breathing comfortably on room air without need for supplemental oxygen, the patient denies chest pain, shortness of breath or cough, patient denies nausea/vomiting , no diarrhea and no abdominal pain Patient did have white count of 9.9, creatinine 0.68 Objective - Vital Signs Vital signs: Vital Signs Temp 98.0 F 03/27/23 08:00 Pulse 73 03/27/23 09:00 Resp 25 H 03/27/23 09:00 BP 126/80 03/27/23 09:00 Pulse Ox 95 03/27/23 04:00 FiO2 40 03/17/23 10:28 Intake & Output 03/26/23 03/27/23 03/27/23 18:59 06:59 18:59 Intake Total 1005 185 Output Total 150 400 Balance 855 -215 Weight 92.4 kg 88.9 kg Intake: Oral 120 Tube Feeding 945 65 Other 60 Output: Urine 150 400 Other: Voiding Method External Catheter External Catheter External Catheter # Voids 0 1 # Bowel Movements 0 ABP, PAP, CO, CI - Last Documented Arterial Blood Pressure 119/43 - Exam GENERAL DESCRIPTION: An elderly male lying in bed in no distress RESPIRATORY SYSTEM: Unlabored breathing , coarse breath sounds bilaterally HEART: S1 S2 regular rate and rhythm , ABDOMEN: Soft , no tenderness EXTREMITIES: No edema feet - Labs CBC & Chem 7: 03/27/23 04:54 03/27/23 04:54 Labs: Abnormal Lab Results - Last 24 Hours (Table) 03/27/23 03/27/23 03/27/23 Range/Units 00:29 04:54 04:54 RBC 3.76 L (4.30-5.90) m/uL Hgb 12.6 L (13.0-17.5) gm/dL Hct 37.3 L (39.0-53.0) % Sodium 136 L (137-145) mmol/L BUN 28 H (9-20) mg/dL POC Glucose (mg/dL) 112 H (70-110) mg/dL 03/27/23 Range/Units 06:15 RBC (4.30-5.90) m/uL Hgb (13.0-17.5) gm/dL Hct (39.0-53.0) % Sodium (137-145) mmol/L BUN (9-20) mg/dL POC Glucose (mg/dL) 124 H (70-110) mg/dL Assessment and Plan (1) Fever Current Visit: Yes Status: Acute Code(s): R50.9 - FEVER, UNSPECIFIED SNOMED Code(s): 226451705 (2) Pneumonia Current Visit: Yes Status: Acute Code(s): J18.9 - PNEUMONIA, UNSPECIFIED ORGANISM SNOMED Code(s): 942641605 (3) West Nile Virus infection Current Visit: Yes Status: Acute Code(s): A92.30 - WEST NILE VIRUS INFECTION, UNSPECIFIED SNOMED Code(s): 028487980 Plan: 1patient with encephalitis/meningitis ,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, the treatment is mostly supportive, there is some role for immunoglobulin infusion which the patient has already received 2-episode of vomiting aspiration and acute respiratory failure requiring intubation--, patient with likely aspiration pneumonia, blood and sputum culture currently negative 3-patient continued to show clinical improvement the patient is afebrile white count has normalized, patient is currently being monitored closely off antibiotic therapy and seemed to be doing well Dictation was produced using [employer] dictation software. please excuse any grammatical, word or spelling errors. Time with Patient: Less than 30
[2023-03-27 17:12] LABS: Glucose,Whole Blood 129 mg/dL (70-110)
[2023-03-27] MEDS: METOPROLOL TARTRATE 50 MG TAB PO SCH (17:37)
[2023-03-27] MEDS: MELATONIN 5 MG TABLET PO SCH (20:56)
[2023-03-27] MEDS ORDERED: AMIODARONE 200 MG TAB PO SCH (21:00)
[2023-03-28] LABS: Glucose,Whole Blood 114 mg/dL (70-110)
[2023-03-28 07:02] LABS: Glucose,Whole Blood 112 mg/dL (70-110)
[2023-03-28] MEDS: IPRATROPIUM-ALBUTEROL 3 ML NEB INHALATION SCH (07:42)
[2023-03-28] MEDS: polyethylene glycoL 3350 17 GM POWD.PACK PO SCH (09:21)
[2023-03-28] MEDS: ZINC SULFATE 220 MG CAP PO SCH (09:23)
[2023-03-28] MEDS: LACTOBACILLUS ACIDOPHILUS/PECT 1 EACH CAPSULE PO SCH ×3 (09:24→20:58)
[2023-03-28] MEDS: PANTOPRAZOLE 40 MG/10 ML VIAL IVP SCH (09:24)
[2023-03-28] MEDS: CHOLECALCIFEROL 125 MCG (5000 IU) TABLET PO SCH (09:24)
[2023-03-28] MEDS: ASCORBIC ACID 500 MG TAB PO SCH (09:24)
[2023-03-28] MEDS: AMIODARONE 200 MG TAB PO SCH (09:24)
[2023-03-28] MEDS: APIXABAN 5 MG TAB PO SCH ×2 (09:24→20:57)
--- NOTE | 2023-03-28 11:27 | P.PN ---
Subjective Progress Note Date: 03/28/23 The patient is seen today 03/23/2023 in follow-up in the intensive care unit. He has a regular medical floor overflow. He was extubated on 03/17/2023. He is improved and on room air. 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 He is more awake and alert each day. Following some simple commands. Still very weak and debilitated. He has had issues with atrial fibrillation with rapid ventricular response. He is currently on oral amiodarone. He is currently in sinus rhythm. He's been afebrile. Hemodynamically stable. Glucose 110. He remains on DuoNeb inhalations. Antibiotics in the form of Augmentin. Anticoagulated with Eliquis. He is tolerating a dysphagia level II ground diet. He remains on one-to-one supervision. He remains an aspiration precautions. PEG tube remains in place. The patient is seen today 03/24/2023 in follow-up in the intensive care unit. He remains a regular medical floor overflow. He was subsequently extubated back on 03/17/2023. He remains stable and on room air. No IV fluids. He is tolerating a ground diet dysphagia II. Still getting nourished with vital HPI 85 ML's per hour. PEG tube remains in place. Dietary is working with the patient. He remains on antibiotics in the form of Augmentin. Anticoagulated with Eliquis. Remains in a regular rhythm. Blood sugar 101. The patient is seen today 03/25/2023 in follow-up in the intensive care unit. He has a regular medical floor overflow. He is resting in bed. Awake and alert in no acute distress. Continued on room air. No IV fluids. Being nourished with vital AF at 85 ML's per hour per his PEG tube. He remains on Augmentin. Anticoagulated with Eliquis. Discharge is still pending insurance authorization for inpatient rehabilitation. The patient is seen today 03/26/2023 in follow-up in the intensive care unit. He remains regular medical overflow patient. He sitting up in bed. Awake and alert in no acute distress. Continue good O2 saturations in the 90s on room air. He's afebrile. Hemodynamically stable. He is currently on b ronchodilators. Anticoagulated with Eliquis. The patient is seen today 03/27/2023 in follow-up in the intensive care unit. He is a overflow patient from [facility]. He is awake and alert. Currently maintaining good O2 saturations in the 90s on room air. No IV fluids. He is being nourished with vital AF at 65 ML's per hour. He has trialed on a dysphagia level III chopped diet with one-to-one supervision and aspiration precautions. Blood, urine, sputum cultures all negative. White count 9.9. Hemoglobin 12.6. Platelets 261. Sodium 136. Potassium 4.1. Bicarb 25. BUN 28. Creatinine 0.68. Glucose 99. He remains on bronchodilators. Anticoagulated with Eliquis. The patient is seen today 03/28/2023 in follow-up in the intensive care unit. [facility] He is currently resting comfortably in bed. Maintaining good O2 saturations in the 90s on room air. No IV fluids. He is being nourished vital AF at 65 ML's per hour. He is also allowed a dysphagia level III chopped diet with supervision. Remains an aspiration precautions. Blood glucose 112. He remains anticoagulated with Eliquis. Awaiting subacute versus inpatient rehabilitation. Objective - Vital Signs Vital signs: Vital Signs Temp 97.8 F 03/28/23 08:00 Pulse 66 03/28/23 08:00 Resp 20 03/28/23 08:00 BP 103/68 03/28/23 08:00 Pulse Ox 96 03/28/23 08:00 FiO2 40 03/17/23 10:28 Intake & Output 03/27/23 03/28/23 03/28/23 18:59 06:59 18:59 Intake Total 65 Output Total 1000 Balance -1000 65 Weight 92.1 kg Intake: Tube Feeding 65 Output: Urine 1000 Other: Voiding Method External Catheter External Catheter External Catheter # Voids 1 ABP, PAP, CO, CI - Last Documented Arterial Blood Pressure 119/43 - Exam GENERAL EXAM: Alert 77-year-old male, on room air, resting in bed, in no apparent distress. HEAD: Normocephalic. EYES: Normal reaction of pupils, equal size. NOSE: Nasogastric tube secured in place. Clear with pink turbinates. THROAT: No erythema or exudates. NECK: No masses, no JVD. CHEST: No chest wall deformity. LUNGS: Equal air entry with few scattered rhonchi. On room air. CVS: S1 and S2 normal with no audible murmur, regular rhythm. ABDOMEN: No hepatosplenomegaly, normal bowel sounds, no guarding or rigidity. SPINE: No scoliosis or deformity SKIN: No rashes CENTRAL NERVOUS SYSTEM: Slow to respond, garbled speech. Tone is normal in all 4 extremities. EXTREMITIES: There is no peripheral edema. No clubbing, no cyanosis. Peripheral pulses are intact. - Labs CBC & Chem 7: 03/27/23 04:54 03/27/23 04:54 Labs: Abnormal Lab Results - Last 24 Hours (Table) 03/27/23 03/27/23 03/28/23 Range/Units 17:10 23:58 07:01 POC Glucose (mg/dL) 129 H 114 H 112 H (70-110) mg/dL Assessment and Plan Assessment: Encephalopathy, secondary to the West Nile virus. Received IVIG. Improving Acute febrile illness and sepsis, no obvious infectious process identified yet, all cultures have been negative. Recovered Leukocytosis, resolved, possible aspiration pneumonia. Acute rhabdomyolysis, significantly elevated CPK, improved Elevated LFTs, ultrasound showed hepatomegaly Elevated troponins, possibly related to supply/demand mismatch Atrial fibrillation with rapid ventricular response. Transitioned to oral amiodarone and Eliquis, currently in sinus rhythm Plan: The patient was seen and evaluated Medications and labs reviewed Eliquis for anticoagulation Remains stable and on room air Awaiting discharge to rehab I have personally seen and examined the patient, performed the documentation and the assessment and plan as written. Number of minutes spent on the visit: 10.
--- NOTE | 2023-03-28 11:32 | P.PN ---
Subjective Progress Note Date: 03/28/23 77-year-old white male the patient's found him down on the ground * Nonenhanced brain CT on arrival shows age-related atrophic and chronic small vessel ischemia without any obvious acute cranial process. * Initial chest x-ray on arrival showed fullness around the right hilum likely related patient rotation. Underlying infiltrate or mass not excluded. CBC shows leukocytosis with a WBC count of 16, hemoglobin 13.5, hematocrit 39.1, platelets 109,000. BMP shows sodium 136, potassium 3.7, chloride 110, serum bicarb 17, BUN 36, creatinine 1.22, glucose 102. LFTs are mildly elevated. Troponins are 1.66 and 1.9. Urinalysis not particularly concerning for UTI. Negative for influenza, RSV, COVID-19. * Patient was originally admitted to the floor, and was transferred to the ICU for tachycardia and hypotension. Patient was treated for encephalopathy from West Nile virus * 03/28/23: Since seen and evaluated bedside family at bedside as well mentation has improved alert and oriented to person place and situation following commands. CBC showed normal WBC count hemoglobin 12.6 platelet within normal limits from yesterday. Sodium 136 renal function within normal limits from yesterday Objective - Vital Signs Vital signs: Vital Signs Temp 97.8 F 03/28/23 08:00 Pulse 66 03/28/23 08:00 Resp 20 03/28/23 08:00 BP 103/68 03/28/23 08:00 Pulse Ox 96 03/28/23 08:00 FiO2 40 03/17/23 10:28 Intake & Output 03/27/23 03/28/23 03/28/23 18:59 06:59 18:59 Intake Total 65 Output Total 1000 Balance -1000 65 Weight 92.1 kg Intake: Tube Feeding 65 Output: Urine 1000 Other: Voiding Method External Catheter External Catheter External Catheter # Voids 1 ABP, PAP, CO, CI - Last Documented Arterial Blood Pressure 119/43 - Exam PHYSICAL EXAMINATION: GENERAL: The patient is alert and oriented x 3 , ill appearance HEENT: Pupils are round and equally reacting to light. CARDIOVASCULAR: S1 and S2 present. Irregular tachycardia PULMONARY: She is breath sounds bilaterally ABDOMEN: Soft, nontender, nondistended, normoactive bowel sounds. MUSCULOSKELETAL: No joint swelling or deformity. EXTREMITIES: No cyanosis, clubbing, or pedal edema. NEUROLOGICAL: Tala is alert and oriented 3 able to follow commands and son at bedside - Labs CBC & Chem 7: 03/27/23 04:54 03/27/23 04:54 Labs: Abnormal Lab Results - Last 24 Hours (Table) 03/27/23 03/27/23 03/28/23 Range/Units 17:10 23:58 07:01 POC Glucose (mg/dL) 129 H 114 H 112 H (70-110) mg/dL Assessment and Plan Assessment: Assessment and plan * Acute encephalopathy multifactorial viral encephalitis from West Nile virus * Sepsis with underlying pneumonia treated * Acute rhabdomyolysis treated * Transaminitis improved * New onset A. fib with rapid ventricular response * Elevated troponin type II PR * In regards to encephalopathy patient seen by infectious disease, neurology. Lumbar puncture completed. West Nile virus workup was positive patient treated with IVIG * In regards to rhabdomyolysis and appropriately resuscitated with fluid * In regards to new onset A. fib and RVR continue Eliquis, amiodarone, metoprolol * That to discharge to rehab once pending availability
[2023-03-28 12:00] LABS: Glucose,Whole Blood 125 mg/dL (70-110)
--- NOTE | 2023-03-28 12:09 | P.PAINPG ---
Subjective Progress Note Date: 03/28/23 Principal diagnosis: Status post PEG tube placement Patient seen and evaluated at bedside. Tolerating tube feeds at goal Objective - Vital Signs Vital signs: Vital Signs Temp 97.8 F 03/28/23 08:00 Pulse 66 03/28/23 08:00 Resp 20 03/28/23 08:00 BP 103/68 03/28/23 08:00 Pulse Ox 96 03/28/23 08:00 FiO2 40 03/17/23 10:28 Intake & Output 03/27/23 03/28/23 03/28/23 18:59 06:59 18:59 Intake Total 65 Output Total 1000 Balance -1000 65 Weight 92.1 kg Intake: Tube Feeding 65 Output: Urine 1000 Other: Voiding Method External Catheter External Catheter External Catheter # Voids 1 ABP, PAP, CO, CI - Last Documented Arterial Blood Pressure 119/43 - Exam General no acute distress Cardiovascular regular rhythm Pulmonary no labored breathing Abdomen soft nontender nondistended no guarding rebound tenderness PEG tube placed - Labs CBC & Chem 7: 03/27/23 04:54 03/27/23 04:54 Labs: Abnormal Lab Results - Last 24 Hours (Table) 03/27/23 03/27/23 03/28/23 Range/Units 17:10 23:58 07:01 POC Glucose (mg/dL) 129 H 114 H 112 H (70-110) mg/dL 03/28/23 Range/Units 11:58 POC Glucose (mg/dL) 125 H (70-110) mg/dL Assessment and Plan Assessment: 77-year-old male status post PEG tube placement PEG tube in place Tolerate tube feeds Stable from surgical standpoint Time with Patient: Greater than 30 PQRS Measure Charge Sheet - Pain Location None Non-Pharmacological Interventions: Position/Reposition, Reduce Environmental Stimuli, Relaxation Technique Pharmacological Interventions: Discuss Pain Med Options Generalized Non-Pharmacological Interventions: Reduce Environmental Stimuli, Relaxation Technique PQRS Narrative: Blood Pressure [Left Arm] 103/68 Blood Pressure [Right Arm 112/65 Supine] Blood Pressure 116/78 Pain Intensity [Generalized] 0 Pain Intensity [None] 0 Pain Intensity 10 Pain Scale Used Non Verbal Pain Indicator Scale Used Numeric (1 - 10) Home Medications: Ambulatory Orders No Known Home Medications 02/23/23 Controlled Substance Measures - Controlled Substance Measures Is patient prescribed a controlled substance at discharge?: No When asked, does pt state using other controlled substances?: No If prescribed controlled substance>3 days was MAPS reviewed?: No If Rx opioid, was Start Talking consent form obtained?: No If opioid is for acute pain is fill amount 7 days or less?: No Was information provided regarding opioid addiction?: No
[2023-03-28] MEDS: PIPERACILLIN-TAZOBACTAM 3.375 GM in SODIUM CHLORIDE 0.9% 100 ML IVPB SCH (14:50)
[2023-03-28] MEDS: METOPROLOL TARTRATE 50 MG TAB PO SCH (14:54)
[2023-03-28 18:09] LABS: Glucose,Whole Blood 111 mg/dL (70-110)
[2023-03-28] MEDS: MELATONIN 5 MG TABLET PO SCH (20:57)
[2023-03-28 21:15] LABS: Glucose,Whole Blood 104 mg/dL (70-110)
[2023-03-29 01:37] LABS: Glucose,Whole Blood 104 mg/dL (70-110)
[2023-03-29 06:55] LABS: Glucose,Whole Blood 100 mg/dL (70-110)
[2023-03-29] MEDS: PANTOPRAZOLE 40 MG/10 ML VIAL IVP SCH (08:26)
[2023-03-29] MEDS: AMIODARONE 200 MG TAB PO SCH (08:26)
[2023-03-29] MEDS: ZINC SULFATE 220 MG CAP PO SCH (08:26)
[2023-03-29] MEDS: ASCORBIC ACID 500 MG TAB PO SCH (08:26)
[2023-03-29] MEDS: polyethylene glycoL 3350 17 GM POWD.PACK PO SCH (08:26)
[2023-03-29] MEDS: CHOLECALCIFEROL 125 MCG (5000 IU) TABLET PO SCH (08:26)
[2023-03-29] MEDS: APIXABAN 5 MG TAB PO SCH ×2 (08:26→21:11)
[2023-03-29] MEDS: LACTOBACILLUS ACIDOPHILUS/PECT 1 EACH CAPSULE PO SCH ×4 (08:26→21:17)
[2023-03-29 11:44] LABS: Glucose,Whole Blood 120 mg/dL (70-110)
--- NOTE | 2023-03-29 11:59 | P.PN ---
Subjective Progress Note Date: 03/29/23 The patient is seen today 03/23/2023 in follow-up in the intensive care unit. He has a regular medical floor overflow. He was extubated on 03/17/2023. He is improved and on room air. 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 He is more awake and alert each day. Following some simple commands. Still very weak and debilitated. He has had issues with atrial fibrillation with rapid ventricular response. He is currently on oral amiodarone. He is currently in sinus rhythm. He's been afebrile. Hemodynamically stable. Glucose 110. He remains on DuoNeb inhalations. Antibiotics in the form of Augmentin. Anticoagulated with Eliquis. He is tolerating a dysphagia level II ground diet. He remains on one-to-one supervision. He remains an aspiration precautions. PEG tube remains in place. The patient is seen today 03/24/2023 in follow-up in the intensive care unit. He remains a regular medical floor overflow. He was subsequently extubated back on 03/17/2023. He remains stable and on room air. No IV fluids. He is tolerating a ground diet dysphagia II. Still getting nourished with vital HPI 85 ML's per hour. PEG tube remains in place. Dietary is working with the patient. He remains on antibiotics in the form of Augmentin. Anticoagulated with Eliquis. Remains in a regular rhythm. Blood sugar 101. The patient is seen today 03/25/2023 in follow-up in the intensive care unit. He has a regular medical floor overflow. He is resting in bed. Awake and alert in no acute distress. Continued on room air. No IV fluids. Being nourished with vital AF at 85 ML's per hour per his PEG tube. He remains on Augmentin. Anticoagulated with Eliquis. Discharge is still pending insurance authorization for inpatient rehabilitation. The patient is seen today 03/26/2023 in follow-up in the intensive care unit. He remains regular medical overflow patient. He sitting up in bed. Awake and alert in no acute distress. Continue good O2 saturations in the 90s on room air. He's afebrile. Hemodynamically stable. He is currently on b ronchodilators. Anticoagulated with Eliquis. The patient is seen today 03/27/2023 in follow-up in the intensive care unit. He is a overflow patient from [facility]. He is awake and alert. Currently maintaining good O2 saturations in the 90s on room air. No IV fluids. He is being nourished with vital AF at 65 ML's per hour. He has trialed on a dysphagia level III chopped diet with one-to-one supervision and aspiration precautions. Blood, urine, sputum cultures all negative. White count 9.9. Hemoglobin 12.6. Platelets 261. Sodium 136. Potassium 4.1. Bicarb 25. BUN 28. Creatinine 0.68. Glucose 99. He remains on bronchodilators. Anticoagulated with Eliquis. The patient is seen today 03/28/2023 in follow-up in the intensive care unit. He remains MedSurg overflow patient. He is currently resting comfortably in bed. Maintaining good O2 saturations in the 90s on room air. No IV fluids. He is being nourished vital AF at 65 ML's per hour. He is also allowed a dysphagia level III chopped diet with supervision. Remains an aspiration precautions. Blood glucose 112. He remains anticoagulated with Eliquis. Awaiting subacute versus inpatient rehabilitation. The patient is seen today 03/29/2023 in follow-up on the regular medical floor. He is currently resting comfortably in bed. Awake and alert in no acute distress. Still remains extremely weak and debilitated. Still as low as to response. Speech is garbled at times. He continues to maintain good O2 sa turations in the 90s on room air. He's afebrile. Hemodynamically stable. He remains on vital AF at 65 ML's per hour. He remains on a dysphagia level III chopped diet with one-to-one supervision. Blood sugar 120. He remains on Eliquis for anticoagulation. Objective - Vital Signs Vital signs: Vital Signs Temp 97.7 F 03/29/23 06:53 Pulse 69 03/29/23 06:53 Resp 18 03/29/23 06:53 BP 127/74 03/29/23 06:53 Pulse Ox 92 L 03/29/23 08:07 FiO2 40 03/17/23 10:28 Intake & Output 03/28/23 03/29/23 03/29/23 18:59 06:59 18:59 Intake Total 130 870 Output Total 350 450 400 Balance -220 420 -400 Intake: Tube Feeding 130 780 Other 90 Output: Urine 350 450 400 Other: Voiding Method External Catheter External Catheter External Catheter ABP, PAP, CO, CI - Last Documented Arterial Blood Pressure 119/43 - Exam GENERAL EXAM: Awake, alert 77-year-old male patient, on room air, resting in bed, in no apparent distress. HEAD: Normocephalic. EYES: Normal reaction of pupils, equal size. NOSE: Nasogastric tube secured in place. Clear with pink turbinates. THROAT: No erythema or exudates. NECK: No masses, no JVD. CHEST: No chest wall deformity. LUNGS: Equal air entry with few scattered rhonchi. On room air. CVS: S1 and S2 normal with no audible murmur, regular rhythm. ABDOMEN: No hepatosplenomegaly, normal bowel sounds, no guarding or rigidity. SPINE: No scoliosis or deformity SKIN: No rashes CENTRAL NERVOUS SYSTEM: Slow to respond, garbled speech. Tone is normal in all 4 extremities. EXTREMITIES: There is no peripheral edema. No clubbing, no cyanosis. Peripheral pulses are intact. - Labs CBC & Chem 7: 03/27/23 04:54 03/27/23 04:54 Labs: Abnormal Lab Results - Last 24 Hours (Table) 03/28/23 03/28/23 03/29/23 Range/Units 11:58 18:08 11:43 POC Glucose (mg/dL) 125 H 111 H 120 H (70-110) mg/dL Assessment and Plan Assessment: Encephalopathy, secondary to the West Nile virus. Received IVIG. Improving Acute febrile illness and sepsis, no obvious infectious process identified yet, all cultures have been negative. Recovered Leukocytosis, resolved, possible aspiration pneumonia. Acute rhabdomyolysis, significantly elevated CPK, improved Elevated LFTs, ultrasound showed hepatomegaly Elevated troponins, possibly related to supply/demand mismatch Atrial fibrillation with rapid ventricular response. Transitioned to oral amiodarone and Eliquis, currently in sinus rhythm Plan: The patient was seen and evaluated Medications and labs reviewed Eliquis for anticoagulation Remains stable and on room air Remains nourished with vital AF at 65 ML's per hour. Allowed a dysphagia III chopped diet with one-to-one supervision Awaiting discharge to rehab, either subacute or inpatient I have personally seen and examined the patient, performed the documentation and the assessment and plan as written. Number of minutes spent on the visit: 10.
--- NOTE | 2023-03-29 12:23 | P.PN ---
Subjective Progress Note Date: 03/29/23 77-year-old white male the patient's found him down on the ground * Nonenhanced brain CT on arrival shows age-related atrophic and chronic small vessel ischemia without any obvious acute cranial process. * Initial chest x-ray on arrival showed fullness around the right hilum likely related patient rotation. Underlying infiltrate or mass not excluded. CBC shows leukocytosis with a WBC count of 16, hemoglobin 13.5, hematocrit 39.1, platelets 109,000. BMP shows sodium 136, potassium 3.7, chloride 110, serum bicarb 17, BUN 36, creatinine 1.22, glucose 102. LFTs are mildly elevated. Troponins are 1.66 and 1.9. Urinalysis not particularly concerning for UTI. Negative for influenza, RSV, COVID-19. * Patient was originally admitted to the floor, and was transferred to the ICU for tachycardia and hypotension. Patient was treated for encephalopathy from West Nile virus * 03/28/23: Since seen and evaluated bedside family at bedside as well mentation has improved alert and oriented to person place and situation following commands. CBC showed normal WBC count hemoglobin 12.6 platelet within normal limits from yesterday. Sodium 136 renal function within normal limits from yesterday * 03/29/23: Patient seen and evaluated bedside, patient alert and oriented to person and situation. Blood glucose better controlled patient had a bowel movement today , waiting for discharge to rehab Objective - Vital Signs Vital signs: Vital Signs Temp 97.7 F 03/29/23 06:53 Pulse 69 03/29/23 06:53 Resp 18 03/29/23 06:53 BP 127/74 03/29/23 06:53 Pulse Ox 92 L 03/29/23 08:07 FiO2 40 03/17/23 10:28 Intake & Output 03/28/23 03/29/23 03/29/23 18:59 06:59 18:59 Intake Total 130 870 Output Total 350 450 400 Balance -220 420 -400 Intake: Tube Feeding 130 780 Other 90 Output: Urine 350 450 400 Other: Voiding Method External Catheter External Catheter External Catheter ABP, PAP, CO, CI - Last Documented Arterial Blood Pressure 119/43 - Exam PHYSICAL EXAMINATION: GENERAL: The patient is alert and oriented x 3 , ill appearance HEENT: Pupils are round and equally reacting to light. CARDIOVASCULAR: S1 and S2 present. Irregular tachycardia PULMONARY: She is breath sounds bilaterally ABDOMEN: Soft, nontender, nondistended, normoactive bowel sounds. MUSCULOSKELETAL: No joint swelling or deformity. EXTREMITIES: No cyanosis, clubbing, or pedal edema. NEUROLOGICAL: Tala is alert and oriented 3 able to follow commands and son at bedside - Labs CBC & Chem 7: 03/27/23 04:54 03/27/23 04:54 Labs: Abnormal Lab Results - Last 24 Hours (Table) 03/28/23 03/29/23 Range/Units 18:08 11:43 POC Glucose (mg/dL) 111 H 120 H (70-110) mg/dL Assessment and Plan Assessment: Assessment and plan * Acute encephalopathy multifactorial viral encephalitis from West Nile virus * Sepsis with underlying pneumonia treated * Acute rhabdomyolysis treated * Transaminitis improved * New onset A. fib with rapid ventricular response * Elevated troponin type II GA * In regards to encephalopathy patient seen by infectious disease, neurology. Lumbar puncture completed. West Nile virus workup was positive patient treated with IVIG * In regards to rhabdomyolysis and appropriately resuscitated with fluid * In regards to new onset A. fib and RVR continue Eliquis, amiodarone, metoprolol * Waiting for discharge to rehab once pending availability
[2023-03-29 13:25] LABS: HCT 39.9 % (39.6-50.0); MCH 32.6 pg (27.0-32.0); MCHC 32.6 d/dL (32.0-37.0); NRBC Per 100 WBC 0 X 10*3/uL (0.00-0.01); Platelet Count 250 X 10*3/uL (140-440); RBC 3.99 X 10*6/uL (4.40-5.60); RDW 14.2 % (11.5-14.5); WBC 7.39 X 10*3/uL (4.50-10.00)
[2023-03-29 13:43] LABS: Blood Urea Nitrogen 24.4 mg/dL (9.0-27.0); Chloride 99 mmol/L (96-109); Glucose 97 mg/dL (70-110); Potassium 4.1 mmol/L (3.5-5.5); Sodium 136 mmol/L (135-145)
--- NOTE | 2023-03-29 14:40 | P.PN ---
Subjective Progress Note Date: 03/28/23 Principal diagnosis: Fever Patient is a 77-year-old male presenting to the hospital y after the patient was found to be unresponsive by the , patient has been febrile initial testing negative including LP which was only mildly elevated protein. 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 365 consultant of 03/14/2023 On today's evaluation that is 03/28/2023, the patient denies any fever or any chills, the patient is breathing comfortably on room air , the patient denies chest pain, shortness of breath and no significant cough, patient denies abdominal pain, no nausea/vomiting or diarrhea Patient did have white count of 9.9, creatinine 0.68 as of yesterday no lab draw today Objective - Vital Signs Vital signs: Vital Signs Temp 97.8 F 03/28/23 08:00 Pulse 66 03/28/23 08:00 Resp 20 03/28/23 08:00 BP 103/68 03/28/23 08:00 Pulse Ox 96 03/28/23 08:00 FiO2 40 03/17/23 10:28 Intake & Output 03/27/23 03/28/23 03/28/23 18:59 06:59 18:59 Intake Total 130 Output Total 1000 0 Balance -1000 130 Weight 92.1 kg Intake: Tube Feeding 130 Output: Urine 1000 0 Other: Voiding Method External Catheter External Catheter External Catheter # Voids 1 ABP, PAP, CO, CI - Last Documented Arterial Blood Pressure 119/43 - Exam GENERAL DESCRIPTION: An elderly male lying in bed in no distress RESPIRATORY SYSTEM: Unlabored breathing , coarse breath sounds bilaterally HEART: S1 S2 regular rate and rhythm , ABDOMEN: Soft , no tenderness EXTREMITIES: No edema feet - Labs CBC & Chem 7: 03/29/23 05:44 03/29/23 05:44 Labs: Abnormal Lab Results - Last 24 Hours (Table) 03/27/23 03/27/23 03/28/23 Range/Units 17:10 23:58 07:01 POC Glucose (mg/dL) 129 H 114 H 112 H (70-110) mg/dL 03/28/23 Range/Units 11:58 POC Glucose (mg/dL) 125 H (70-110) mg/dL Assessment and Plan (1) Fever Current Visit: Yes Status: Acute Code(s): R50.9 - FEVER, UNSPECIFIED SNOMED Code(s): 491055162 (2) Pneumonia Current Visit: Yes Status: Acute Code(s): J18.9 - PNEUMONIA, UNSPECIFIED ORGANISM SNOMED Code(s): 409884935 (3) West Nile Virus infection Current Visit: Yes Status: Acute Code(s): A92.30 - WEST NILE VIRUS INFECTION, UNSPECIFIED SNOMED Code(s): 660934107 Plan: 1patient with encephalitis/meningitis ,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, the treatment is mostly supportive, there is some role for immunoglobulin infusion which the patient has already received 2-episode of vomiting aspiration and acute respiratory failure requiring intubation--, patient with likely aspiration pneumonia, blood and sputum culture currently negative, patient has received adequate antibiotic therapy for his underlying aspiration pneumonia 3-patient has clinical improvement the patient is afebrile white count has normalized, patient seemed to be doing well and no need for any antibiotics Dictation was produced using [employer] dictation software. please excuse any grammatical, word or spelling errors. Time with Patient: Less than 30
--- NOTE | 2023-03-29 14:41 | P.PN ---
Subjective Progress Note Date: 03/29/23 Principal diagnosis: Fever Patient is a 77-year-old male presenting to the hospital y after the patient was found to be unresponsive by the , patient has been febrile initial testing negative including LP which was only mildly elevated protein. 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 of 03/14/2023 On today's evaluation that is 03/29/2023, the patient remains to be afebrile, the patient is breathing comfortably on room air without the need for supplemental oxygen , the patient denies chest pain or cough, patient denies nausea/vomiting or diarrhea and denies any abdominal pain Patient did have white count of 7.39, creatinine 0.8 Objective - Vital Signs Vital signs: Vital Signs Temp 97.7 F 03/29/23 06:53 Pulse 69 03/29/23 06:53 Resp 18 03/29/23 06:53 BP 127/74 03/29/23 06:53 Pulse Ox 92 L 03/29/23 08:07 FiO2 40 03/17/23 10:28 Intake & Output 03/28/23 03/29/23 03/29/23 18:59 06:59 18:59 Intake Total 130 870 Output Total 350 450 400 Balance -220 420 -400 Intake: Tube Feeding 130 780 Other 90 Output: Urine 350 450 400 Other: Voiding Method External Catheter External Catheter External Catheter ABP, PAP, CO, CI - Last Documented Arterial Blood Pressure 119/43 - Exam GENERAL DESCRIPTION: An elderly male lying in bed in no distress RESPIRATORY SYSTEM: Unlabored breathing , coarse breath sounds bilaterally HEART: S1 S2 regular rate and rhythm , ABDOMEN: Soft , no tenderness EXTREMITIES: No edema feet - Labs CBC & Chem 7: 03/29/23 05:44 03/29/23 05:44 Labs: Abnormal Lab Results - Last 24 Hours (Table) 03/28/23 03/29/23 03/29/23 Range/Units 18:08 05:44 05:44 RBC 3.99 L (4.40-5.60) X 10*6/uL MCV 100.0 H (80.0-97.0) FL MCH 32.6 H (27.0-32.0) pg BUN/Creatinine Ratio 30.50 H (12.00-20.00) Ratio POC Glucose (mg/dL) 111 H (70-110) mg/dL 03/29/23 Range/Units 11:43 RBC (4.40-5.60) X 10*6/uL MCV (80.0-97.0) FL MCH (27.0-32.0) pg BUN/Creatinine Ratio (12.00-20.00) Ratio POC Glucose (mg/dL) 120 H (70-110) mg/dL Assessment and Plan (1) Fever Current Visit: Yes Status: Acute Code(s): R50.9 - FEVER, UNSPECIFIED SNOMED Code(s): 468636187 (2) Pneumonia Current Visit: Yes Status: Acute Code(s): J18.9 - PNEUMONIA, UNSPECIFIED ORGANISM SNOMED Code(s): 723572752 (3) West Nile Virus infection Current Visit: Yes Status: Acute Code(s): A92.30 - WEST NILE VIRUS INFECT ION, UNSPECIFIED SNOMED Code(s): 445234207 Plan: 1patient with encephalitis/meningitis ,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 please excuse any grammatical, word or spelling errors. Time with Patient: Less than 30
[2023-03-29] MEDS: METOPROLOL TARTRATE 50 MG TAB PO SCH (16:19)
[2023-03-29 16:37] LABS: Glucose,Whole Blood 133 mg/dL (70-110)
[2023-03-29] MEDS: MELATONIN 5 MG TABLET PO SCH (21:11)
[2023-03-30 00:43] LABS: Glucose,Whole Blood 121 mg/dL (70-110)
[2023-03-30 05:19] LABS: Glucose,Whole Blood 101 mg/dL (70-110)
[2023-03-30] MEDS: LACTOBACILLUS ACIDOPHILUS/PECT 1 EACH CAPSULE PO SCH (07:37)
[2023-03-30] MEDS: AMIODARONE 200 MG TAB PO SCH (07:59)
[2023-03-30] MEDS: PANTOPRAZOLE 40 MG/10 ML VIAL IVP SCH ×2 (07:59→08:05)
[2023-03-30] MEDS: CHOLECALCIFEROL 125 MCG (5000 IU) TABLET PO SCH (07:59)
[2023-03-30] MEDS: ZINC SULFATE 220 MG CAP PO SCH (07:59)
[2023-03-30] MEDS: APIXABAN 5 MG TAB PO SCH (07:59)
[2023-03-30] MEDS: ASCORBIC ACID 500 MG TAB PO SCH (07:59)
[2023-03-30] MEDS: polyethylene glycoL 3350 17 GM POWD.PACK PO SCH (08:00)
--- NOTE | 2023-03-30 09:03 | P.DS ---
Providers Date of admission: 02/23/23 15:21 Attending physician: Pranay Holman Consults: 02/23/23 18:39 Consult Physician Routine Consulting Provider: Suzy Baptiste Consult Reason/Comments: pneumonia/sepsis Do you want consulting provider notified?: Yes 02/23/23 18:44 Consult Physician Routine Consulting Provider: Deidra Freedman Consult Reason/Comments: pneumonia/sepsis Do you want consulting provider notified?: Yes 02/23/23 19:00 Consult Physician Routine Consulting Provider: Rachael Mills Consult Reason/Comments: mental status changes Do you want consulting provider notified?: Yes 02/24/23 08:37 Consult Physician Urgent Consulting Provider: Miguel Angel Fuentes Consult Reason/Comments: lumbar puncture Do you want consulting provider notified?: Yes 03/06/23 11:33 Consult Physician Urgent Consulting Provider: Otis More Consult Reason/Comments: possible cervical myelopathy with weakness throughout. Do you want consulting provider notified?: Yes 03/12/23 10:52 Consult Physician Routine Consulting Provider: Migue Whipple Consult Reason/Comments: peg tube placement Do you want consulting provider notified?: Yes 03/12/23 11:11 Consult Physician Routine Consulting Provider: Kar Mcleod Consult Reason/Comments: eval for IPR Do you want consulting provider notified?: Yes Primary care physician: Pranay Holman - Sophia Diagnosis(es) (1) Altered mental status Current Visit: Yes Status: Acute (2) Pneumonia Current Visit: Yes Status: Acute (3) Septic shock Current Visit: Yes Status: Acute (4) Atrial fibrillation Current Visit: Yes Status: Acute (5) West Nile Virus infection Current Visit: Yes Status: Acute Hospital Course: This is a 77-year-old male who originally presented to the emergency room with concerns of altered mental status. Patient was placed in the ICU and after intensive workup, was positive for West Nile virus. Patient was on mechanical ventilation during admission. He also had a PEG tube placed as he was not able to swallow. He is currently on an oral dysphagia diet. He is also on tube feedings at 30 mL an hour, attempting to wean down, so he may eat more orally. Patient still with significant weakness and was accepted into inpatient rehab at [facility]. He'll be discharged to inpatient rehab to work on gaining strength. Patient will continue current medications. Patient seen and evaluated by nurse practitioner, physician in agreement with plan Patient Condition at Discharge: Fair Plan - Discharge Summary Discharge Rx Participant: No New Discharge Prescriptions: New Amiodarone [Cordarone] 200 mg PO DAILY tab Apixaban [Eliquis] 5 mg PO BID tab Melatonin 5 mg PO HS tab polyethylene glycoL 3350 [Miralax] 17 gm PO DAILY packet Docusate Oral Soln [Colace Oral Soln] 100 mg PO DAILY PRN ml PRN Reason: Constipation Metoprolol Tartrate [Lopressor] 50 mg PO DAILY@1500 tab Zinc Sulfate [Orazinc] 220 mg PO DAILY cap Acetaminophen Tab [Tylenol] 650 mg PO Q4HR PRN tab PRN Reason: Fever And/ Or Pain Ascorbic Acid [Vitamin C] 500 mg PO DAILY tab Cholecalciferol [Vitamin D3 (125 Mcg = 5000 Iu)] 125 mcg PO DAILY tab Discharge Medication List Acetaminophen Tab [Tylenol] 650 mg PO Q4HR PRN tab 03/30/23 [Rx] Amiodarone [Cordarone] 200 mg PO DAILY tab 03/30/23 [Rx] Apixaban [Eliquis] 5 mg PO BID tab 03/30/23 [Rx] Ascorbic Acid [Vitamin C] 500 mg PO DAILY tab 03/30/23 [Rx] Cholecalciferol [Vitamin D3 (125 Mcg = 5000 Iu)] 125 mcg PO DAILY tab 03/30/23 [Rx] Docusate Oral Soln [Colace Oral Soln] 100 mg PO DAILY PRN ml 03/30/23 [Rx] Melatonin 5 mg PO HS tab 03/30/23 [Rx] Metoprolol Tartrate [Lopressor] 50 mg PO DAILY@1500 tab 03/30/23 [Rx] Zinc Sulfate [Orazinc] 220 mg PO DAILY cap 03/30/23 [Rx] polyethylene glycoL 3350 [Miralax] 17 gm PO DAILY packet 03/30/23 [Rx] Follow up Appointment(s)/Referral(s): None,Stated [REFERRING] - 1-2 days Activity/Diet/Wound Care/Special Instructions: Dysphagia II (ground) texture diet (d/t fatigue and intermittent confusion) with thin liquids, straws ok, meds whole in puree, 1:1 feed, aspiration precations. Discharge Disposition: OTHER INSTITUTION NOT DEFINED
--- NOTE | 2023-03-30 09:59 | P.PN ---
Subjective Progress Note Date: 03/30/23 CHIEF COMPLAINT: Altered mental status HISTORY OF PRESENT ILLNESS: Patient status post PEG tube placement on 03/16/23. Patient is tolerating tube feeds. Tube feeds are at goal. Patient scheduled for discharge today. PHYSICAL EXAM: VITAL SIGNS: Reviewed. GENERAL: no acute distress. ABDOMEN: Soft. Nondistended. PEG tube site clean dry and intact ASSESSMENT: 1. Dysphagia 2. Mild protein calorie malnutrition 3. Failed swallow eval 4. West Nile virus encephalitis PLAN: -Okay to discharge from surgical standpoint -Tube feeds per dietitian recommendation Physician Scale Adjuster note has been reviewed by physician. Signing provider agrees with the documented findings, assessment, and plan of care. Objective - Vital Signs Vital signs: Vital Signs Temp 97.8 F 03/30/23 07:22 Pulse 75 03/30/23 08:00 Resp 17 03/30/23 08:00 BP 120/77 03/30/23 07:22 Pulse Ox 92 L 03/30/23 07:22 FiO2 40 03/17/23 10:28 Intake & Output 03/29/23 03/30/23 03/30/23 18:59 06:59 18:59 Output Total 1050 600 Balance -1050 -600 Output: Urine 1050 600 Other: Voiding Method External Catheter External Catheter External Catheter # Bowel Movements 2 ABP, PAP, CO, CI - Last Documented Arterial Blood Pressure 119/43 - Labs CBC & Chem 7: 03/29/23 05:44 03/29/23 05:44 Labs: Abnormal Lab Results - Last 24 Hours (Table) 03/29/23 03/29/23 03/29/23 Range/Units 05:44 05:44 11:43 RBC 3.99 L (4.40-5.60) X 10*6/uL MCV 100.0 H (80.0-97.0) FL MCH 32.6 H (27.0-32.0) pg BUN/Creatinine Ratio 30.50 H (12.00-20.00) Ratio POC Glucose (mg/dL) 120 H (70-110) mg/dL 03/29/23 03/30/23 Range/Units 16:36 00:42 RBC (4.40-5.60) X 10*6/uL MCV (80.0-97.0) FL MCH (27.0-32.0) pg BUN/Creatinine Ratio (12.00-20.00) Ratio POC Glucose (mg/dL) 133 H 121 H (70-110) mg/dL
[2023-03-30 12:24] LABS: Glucose,Whole Blood 126 mg/dL (70-110)
--- NOTE | 2023-03-30 14:37 | P.PN ---
Subjective Progress Note Date: 03/30/23 The patient is seen today 03/23/2023 in follow-up in the intensive care unit. He has a regular medical floor overflow. He was extubated on 03/17/2023. He is improved and on room air. 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 He is more awake and alert each day. Following some simple commands. Still very weak and debilitated. He has had issues with atrial fibrillation with rapid ventricular response. He is currently on oral amiodarone. He is currently in sinus rhythm. He's been afebrile. Hemodynamically stable. Glucose 110. He remains on DuoNeb inhalations. Antibiotics in the form of Augmentin. Anticoagulated with Eliquis. He is tolerating a dysphagia level II ground diet. He remains on one-to-one supervision. He remains an aspiration precautions. PEG tube remains in place. The patient is seen today 03/24/2023 in follow-up in the intensive care unit. He remains a regular medical floor overflow. He was subsequently extubated back on 03/17/2023. He remains stable and on room air. No IV fluids. He is tolerating a ground diet dysphagia II. Still getting nourished with vital HPI 85 ML's per hour. PEG tube remains in place. Dietary is working with the patient. He remains on antibiotics in the form of Augmentin. Anticoagulated with Eliquis. Remains in a regular rhythm. Blood sugar 101. The patient is seen today 03/25/2023 in follow-up in the intensive care unit. He has a regular medical floor overflow. He is resting in bed. Awake and alert in no acute distress. Continued on room air. No IV fluids. Being nourished with vital AF at 85 ML's per hour per his PEG tube. He remains on Augmentin. Anticoagulated with Eliquis. Discharge is still pending insurance authorization for inpatient rehabilitation. The patient is seen today 03/26/2023 in follow-up in the intensive care unit. He remains regular medical overflow patient. He sitting up in bed. Awake and alert in no acute distress. Continue good O2 saturations in the 90s on room air. He's afebrile. Hemodynamically stable. He is currently on bronchodilators. Anticoagulated with Eliquis. The patient is seen today 03/27/2023 in follow-up in the intensive care unit. He is a overflow patient from [facility]. He is awake and alert. Currently maintaining good O2 saturations in the 90s on room air. No IV fluids. He is being nourished with vital AF at 65 ML's per hour. He has trialed on a dysphagia level III chopped diet with one-to-one supervision and aspiration precautions. Blood, urine, sputum cultures all negative. White count 9.9. Hemoglobin 12.6. Platelets 261. Sodium 136. Potassium 4.1. Bicarb 25. BUN 28. Creatinine 0.68. Glucose 99. He remains on bronchodilators. Anticoagulated with Eliquis. The patient is seen today 03/28/2023 in follow-up in the intensive care unit. He remains MedSurg overflow patient. He is currently resting comfortably in bed. Maintaining good O2 saturations in the 90s on room air. No IV fluids. He is being nourished vital AF at 65 ML's per hour. He is also allowed a dysphagia level III chopped diet with supervision. Remains an aspiration precautions. Blood glucose 112. He remains anticoagulated with Eliquis. Awaiting subacute versus inpatient rehabilitation. The patient is seen today 03/29/2023 in follow-up on the regular medical floor. He is currently resting comfortably in bed. Awake and alert in no acute distress. Still remains extremely weak and debilitated. Still as low as to response. Speech is garbled at times. He continues to maintain good O2 s aturations in the 90s on room air. He's afebrile. Hemodynamically stable. He remains on vital AF at 65 ML's per hour. He remains on a dysphagia level III chopped diet with one-to-one supervision. Blood sugar 120. He remains on Eliquis for anticoagulation. 03/29/2023, seeing the patient for a follow-up. 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 He is communicating. His swallowing. He was gradually be weaned off enteral feeding. No specific complaints. He remains on amiodarone. He remains on long-term and coagulation with Eliquis 5 mg by mouth twice a day. He is also on metoprolol 50 mg by mouth on a daily basis. He is weak. He is going to benefit from rehabilitation. As such, appropriate resulting done for this patient. No other complaints otherwise for now. Labs from yesterday was noted. The BUN is at 24 with a creatinine of 0.8. Sodium is at 136. The physical 7.3 with a hemoglobin of 13.0. Objective - Vital Signs Vital signs: Vital Signs Temp 97.8 F 03/30/23 07:22 Pulse 75 03/30/23 08:00 Resp 17 03/30/23 08:00 BP 120/77 03/30/23 07:22 Pulse Ox 92 L 03/30/23 07:22 FiO2 40 03/17/23 10:28 Intake & Output 03/29/23 03/30/23 03/30/23 18:59 06:59 18:59 Output Total 1050 600 Balance -1050 -600 Output: Urine 1050 600 Other: Voiding Method External Catheter External Catheter External Catheter # Bowel Movements 2 ABP, PAP, CO, CI - Last Documented Arterial Blood Pressure 119/43 - Exam GENERAL EXAM: Awake, alert 77-year-old male patient, on room air, resting in bed, in no apparent distress. HEAD: Normocephalic. EYES: Normal reaction of pupils, equal size. NOSE: Nasogastric tube secured in place. Clear with pink turbinates. THROAT: No erythema or exudates. NECK: No masses, no JVD. CHEST: No chest wall deformity. LUNGS: Equal air entry with few scattered rhonchi. On room air. CVS: S1 and S2 normal with no audible murmur, regular rhythm. ABDOMEN: No hepatosplenomegaly, normal bowel sounds, no guarding or rigidity. SPINE: No scoliosis or deformity SKIN: No rashes CENTRAL NERVOUS SYSTEM: Slow to respond, garbled speech. Tone is normal in all 4 extremities. EXTREMITIES: There is no peripheral edema. No clubbing, no cyanosis. Peripheral pulses are intact. - Labs CBC & Chem 7: 03/29/23 05:44 03/29/23 05:44 Labs: Abnormal Lab Results - Last 24 Hours (Table) 03/29/23 03/29/23 03/29/23 Range/Units 05:44 05:44 11:43 RBC 3.99 L (4.40-5.60) X 10*6/uL MCV 100.0 H (80.0-97.0) FL MCH 32.6 H (27.0-32.0) pg BUN/Creatinine Ratio 30.50 H (12.00-20.00) Ratio POC Glucose (mg/dL) 120 H (70-110) mg/dL 03/29/23 03/30/23 Range/Units 16:36 00:42 RBC (4.40-5.60) X 10*6/uL MCV (80.0-97.0) FL MCH (27.0-32.0) pg BUN/Creatinine Ratio (12.00-20.00) Ratio POC Glucose (mg/dL) 133 H 121 H (70-110) mg/dL Assessment and Plan Plan: Encephalopathy, secondary to the West Nile virus. Received IVIG. Neurologic the patient is improved. No encephalopathy at this point in time. He remains weak. And the patient is looking for rehabilitation. Acute febrile illness and sepsis, no obvious infectious process identified yet, all cultures have been negative. Recovered Leukocytosis, resolved, possible aspiration pneumonia. Acute rhabdomyolysis, significantly elevated CPK, improved Elevated LFTs, ultrasound showed hepatomegaly Elevated troponins, possibly related to supply/demand mismatch Atrial fibrillation with rapid ventricular response. Transitioned to oral amiodarone and Eliquis, currently in sinus rhythm Plan: The patient will be discharged to rehabilitation. Eliquis for anticoagulation, in combination with metoprolol and amiodarone Remains stable and on room air Remains nourished with vital AF at 65 ML's per hour. The patient will be gradually weaned off enteral feeding for nutritional support Allowed a dysphagia III chopped diet with one-to-one supervision Awaiting discharge to rehab, either subacute or inpatient
[2023-03-30 15:20] VITALS: BP 127/79; PULSE 74; RESP 18; TEMP 98.1
--- NOTE | 2023-03-31 10:17 | CDI ---
Documentation Clarification Form Date: 03/31/2023 10:07:12 AM From: Ramona Courtney Phone: Admit Date: 02/23/2023 03:21:00 PM Patient Name: Michele Avelar Visit Number: [id number] Discharge Date: 03/30/2023 03:27:00 PM ATTENTION: The Clinical Documentation Specialists (CDI) and [facility] Coding Staff appreciate your assistance in clarifying documentation. Please respond to the clarification below the line at the bottom and electronically sign. The CDI & [facility] Coding staff will review the response and follow-up if needed. Please note: Queries are made part of the Legal Health Record. If you have any questions, please contact the author of this message via ITS. Dr. Pranay Holman Unspecified anemia is documented per Dr. Pettit Progress Note 03/14. Additional specificity regarding the type and acuity of anemia is requested. History/Risk Factors: 77yo M, Traumaticrhabdo, sepsis w shock, persistent A Fib, West Nile w enceph, mild malnutrition sp PEG, AHRF, metabolic enceph, asp PNA Clinical indicators: CTS of the chest abdomen and pelvis revealedthickeningand enlargementof the right psoas musculature and iliacus musculature with heterogenous seen. Findings are likely reflective ofretroperitoneal hemorrhage however there is a small focus of decreased attenuation measuring 1.3 cm with possible small focus of air. Smallabscessis not excluded. Basilarpleural effusionsandcompressive atelectasisfor scattered ground glassinfiltrates. Hemoglobin: 11.8 Hematocrit: 34.8 Treatment: monitored Please clarify the type and acuity of anemia: [ ] Acute blood loss anemia [ ] Acute on chronic blood loss anemia [ ] Chronic blood loss anemia [ ] Iron deficiency anemia [ x] Nutritional anemia [ ] Unable to determine [ ] Other, please specify (Template Last Revised: July 2020) MTDD
== END 2023-03-30 15:27 | DRG 871 ==
LOC: EC 11:23 → 3SCARD 15:21 → 2SICU 20:24 → 3SCARD 03-07 18:34 → 2SICU 03-13 23:39 → 4SSUR 03-28 15:45
PROVIDERS: ADMIT Family Medicine; ATTEND Family Medicine
PROC: 009U3ZX Drainage of Spinal Canal, Percutaneous Approach, Diagnostic (ICD-10-PCS; 2023-02-24)
PROC: 3E0G76Z Introduction of Nutritional Substance into Upper GI, Via Natural or Artificial Opening (ICD-10-PCS; 2023-02-27)
PROC: 5A09357 Assistance with Respiratory Ventilation, Less than 24 Consecutive Hours, Continuous Positive Airway Pressure (ICD-10-PCS; 2023-02-28)
PROC: 30233S1 Transfusion of Nonautologous Globulin into Peripheral Vein, Percutaneous Approach (ICD-10-PCS; 2023-03-06)
PROC: 02HV33Z Insertion of Infusion Device into Superior Vena Cava, Percutaneous Approach (ICD-10-PCS; 2023-03-14)
PROC: 5A1945Z Respiratory Ventilation, 24-96 Consecutive Hours (ICD-10-PCS; 2023-03-14)
PROC: 0BH18EZ Insertion of Endotracheal Airway into Trachea, Via Natural or Artificial Opening Endoscopic (ICD-10-PCS; 2023-03-14)
PROC: 0D9670Z Drainage of Stomach with Drainage Device, Via Natural or Artificial Opening (ICD-10-PCS; 2023-03-14)
PROC: 3E043XZ Introduction of Vasopressor into Central Vein, Percutaneous Approach (ICD-10-PCS; 2023-03-14)
PROC: 4A133B1 Monitoring of Arterial Pressure, Peripheral, Percutaneous Approach (ICD-10-PCS; 2023-03-16)
PROC: 4A133J1 Monitoring of Arterial Pulse, Peripheral, Percutaneous Approach (ICD-10-PCS; 2023-03-16)
PROC: 0DH63UZ Insertion of Feeding Device into Stomach, Percutaneous Approach (ICD-10-PCS; 2023-03-16)
PROC: 03HY32Z Insertion of Monitoring Device into Upper Artery, Percutaneous Approach (ICD-10-PCS; principal; 2023-03-16 14:10)
DX: A41.89 Other specified sepsis (principal); A92.31 West Nile virus infection with encephalitis; J69.0 Pneumonitis due to inhalation of food and vomit; R65.21 Severe sepsis with septic shock; J96.01 Acute respiratory failure with hypoxia; G93.41 Metabolic encephalopathy; I21.A1 Myocardial infarction type 2; E44.1 Mild protein-calorie malnutrition; I48.19 Other persistent atrial fibrillation; B37.0 Candidal stomatitis; G72.81 Critical illness myopathy; T79.6XXA Traumatic ischemia of muscle, initial encounter; I10 Essential (primary) hypertension; R13.11 Dysphagia, oral phase; R16.0 Hepatomegaly, not elsewhere classified; Z20.822 Contact with and (suspected) exposure to COVID-19; Z96.653 Presence of artificial knee joint, bilateral; Z87.891 Personal history of nicotine dependence; Z91.199 Patient's noncompliance with other medical treatment and regimen due to unspecified reason; Z28.310 Unvaccinated for COVID-19; R32 Unspecified urinary incontinence; G89.29 Other chronic pain; M25.511 Pain in right shoulder; D53.9 Nutritional anemia, unspecified; M48.02 Spinal stenosis, cervical region; M50.31 Other cervical disc degeneration, high cervical region; M19.90 Unspecified osteoarthritis, unspecified site; F41.9 Anxiety disorder, unspecified; R53.81 Other malaise; R58 Hemorrhage, not elsewhere classified; W18.30XA Fall on same level, unspecified, initial encounter; I49.3 Ventricular premature depolarization; I49.1 Atrial premature depolarization; Z86.79 Personal history of other diseases of the circulatory system; M25.512 Pain in left shoulder; R25.1 Tremor, unspecified; I77.810 Thoracic aortic ectasia; Z68.24 Body mass index [BMI] 24.0-24.9, adult
CPT/HCPCS: 36415; 36600; 43246; 70450; 70553; 71045; 71260; 72141; 74177; 76700; 80048; 80053; 80074; 80306; 81001; 82140; 82550; 82784; 82785; 82787; 82805; 82945; 83605; 83735; 84132; 84145; 84157; 84450; 84460; 84484; 85025; 85027; 85610; 85652; 85730; 86140; 86334; 86592; 86788; 86789; 87040; 87070; 87086; 87205; 87252; 87449; 87496; 87498; 87529; 87636; 87798; 88108; 89050; 93005; 93306; 94002; 94003; 94640; 94660; 94760; 95816; 95819; 96361; 96365; 96367; 99291

== ENCOUNTER → 2024-11-07 | Outpatient (CLI) | payer MEDICARE | END | disposition home or self-care (01) | LOC: LABWHC1 10:58 | PROVIDERS: ATTEND Internal Medicine Cardiovascular Disease | DX: I48.19 Other persistent atrial fibrillation (principal) | CPT/HCPCS: 36415; 84443 ==